=== PATIENT | male | born 1940 | race Caucasian/White ===

== ENCOUNTER → 2017-04-24 | Outpatient (CLI) | payer OTHER ==
[~2017-04-24] MED LIST: ASPI-589 PO; CLX20 PO; COEN30CA8 PO; MISCCAP80 PO; MULT-506 PO; PANT1TAB48 PO; SIMV40TA2 PO
--- NOTE | 2017-04-24 07:57 | DIAGNOSTIC IMAGING REPORT ---
CERVICAL WITHOUT CONTRAST CLINICAL HISTORY: 77 years-old Male presenting with HAND NUMBNESS/TINGLING, neck pain into the bilateral arms with bilateral hand numbness, no reported trauma or injury, symptomatic for years. TECHNIQUE: Multisequence, multiplanar MR imaging of the cervical spine was performed without the use of intravenous contrast. IV contrast: None. COMPARISON: None. FINDINGS: Reversal of normal cervical lordosis in the upper cervical spine centered at C3-4. Mild vertebral body height loss of C4 and C5. Extensive T1 hypointense, T2 hypointense endplate changes in the mid cervical spine (Modic type III). Intervertebral disc height loss in the mid cervical spine. Prominent pannus noted along the posterior aspect of the dens at the atlantoaxial articulation. This does not result in significant spinal canal narrowing. Multilevel degenerative changes further detailed below: C2-3: Minimal anterolisthesis of C2 on C3. Left facet hypertrophy results in mild left neural foraminal narrowing. No spinal canal narrowing. C3-4: Disc osteophyte complex and left facet hypertrophy results in mild right and moderate left neural foraminal narrowing. Mild effacement of the ventral thecal sac. No significant spinal canal narrowing. C4-5: Disc osteophyte complex and uncovertebral hypertrophy result in severe bilateral neural foraminal narrowing. Mild effacement of the ventral thecal sac. No significant spinal canal narrowing. C5-6: Disc osteophyte complex and uncovertebral hypertrophy result in moderate bilateral neural foraminal narrowing. Mild effacement of the ventral thecal sac. No significant spinal canal narrowing. C6-7: Disc osteophyte complex and uncovertebral hypertrophy result in mild right and minimal left neural foraminal narrowing. There is ligamentum flavum thickening that effaces the dorsal thecal sac at the level of C6. Because this does not align with the disc osteophyte complex, no significant spinal canal narrowing results. C7-T1: Normal. Cervical spinal cord normal in morphology and signal intensity. Craniocervical junction normal. Mild edema noted in the interspinous ligament. Paraspinal soft tissues otherwise normal. IMPRESSION: Multilevel degenerative changes with varying degrees of neural foraminal narrowing most severe at C4-5 further detailed above. No significant spinal canal narrowing. Electronically signed by: Eduardo Shafer M.D. 04/24/2017 7:56 AM Dictated Date/Time: 04/24/2017 7:45 AM
== END | disposition home or self-care (01) ==
LOC: C.MRIBC 06:46
PROVIDERS: ATTEND Nurse Practitioner
DX: R20.2 Paresthesia of skin (principal); R20.0 Anesthesia of skin; M79.601 Pain in right arm; M79.602 Pain in left arm; R29.898 Other symptoms and signs involving the musculoskeletal system; M48.02 Spinal stenosis, cervical region

== ENCOUNTER 2020-03-12 16:16 | Inpatient (IN) ==
--- NOTE | 2020-03-12 18:15 | Emergency Department Note ---
Impression & Plan SOB (shortness of breath), Bilateral pulmonary embolism, Hypertension ED Provider Note NAME: BUCK BATISTA AGE: 79 SEX: M : 1940 ARRIVES VIA: Walk-In INFORMANT: [Patient, family][staff] ED PROVIDER(S): [Chetan Benton MD] CHIEF COMPLAINT: Shortness of breath HISTORY OF PRESENT ILLNESS: The patient is an 79-year-old male presents with dyspnea. He has been short of breath for weeks. The dyspnea is worse with exertion. No fever, no real cough, no chest pain. The patient states he had an x-ray done last week that showed a vague area of white/patchiness. He had a CT scan of his chest today that showed bilateral pulmonary emboli with a pulmonary infarct. He was sent to our ED for evaluation and likely admission. The patient states that he has had 2 negative coronavirus tests. The most recent was just a week or so ago. Patient has not had any known coronavirus exposures. The patient has not had long travel by car or plane or train. He was told that he had a blood clot in the leg a long long time ago. He also had lung cancer 20+ years ago. He is not on any anticoagulants. REVIEW OF SYSTEMS: See HPI for pertinent positives and negatives. A total of ten systems were reviewed and were otherwise negative. PMHx/PSHx: See Below SOCIAL HISTORY: See Below. PHYSICAL EXAM: GENERAL: Patient is in no acute distress. HEENT: No acute trauma, normocephalic atraumatic, mucous membranes moist, no nasal congestion, no scleral icterus. NECK: No stridor, no adenopathy, no meningismus, trachea is midline. LUNGS: Clear to auscultation bilaterally, no wheeze, no rhonchi, breath sounds equal. HEART: Without murmurs gallops or rubs, regular rate and rhythm. ABDOMEN: Soft, nontender, bowel sounds positive, no hernias, no peritonitis. EXTREMITIES: No cyanosis or edema, full range of motion of all the joints without pain or difficulty, no signs for acute trauma. NEUROLOGIC: Oriented x 3, no acute motor or sensory deficits, no focal weakness. SKIN: No rash, no jaundice, no diaphoresis. DIFFERENTIAL DIAGNOSIS: Reactive airway disease, pneumonia, pneumothorax, COPD, CHF, infections, cardiac ischemia, pulmonary embolism, musculoskeletal, gastrointestinal, as well as other pathologies. EMERGENCY DEPARTMENT COURSE/PROCEDURES: ECG: Indication was shortness of breath. The EKG shows a normal sinus rhythm with some sinus arrhythmia. LVH is present. The rate is 68. QTc is 421. There are some inverted T waves in the inferior leads, possibly consistent with the LVH. There was no ST elevation, no PVCs. Compared to an ECG from 31 August 2018, there is no significant change. Continuous Cardiac Monitoring: An order was placed for continuous cardiac monitoring. The monitor shows a rate of 80 with normal sinus rhythm. Critical Care Note: I have personally spent greater than 33 minutes of critical care time in the direct management of this patient. This includes bedside care, interpretation of diagnostic studies, and testing, discussion with consultants, patient, and family members, and other required patient management activities. This 33 minutes is in excess of all separately billable procedures. MEDICAL DECISION MAKING: There is no leukocytosis or concerning anemia. No coagulopathy. No significant electrolyte abnormality or kidney failure. No concerning liver enzyme elevation. EKG shows a normal sinus rhythm, no acute ischemia. Cardiac enzyme testing x1 is not consistent with acute cardiac injury. Chest film shows some presumed chronic findings, no obvious pneumonia, no pneumothorax. On exam, the patient was not toxic, he did not seem short of breath while lying on the stretcher. The patient presents with findings on an outpatient CT of bilateral pulmonary emboli with a pulmonary infarct. I was able to review this CT scan reading. The patient was given IV hydralazine for a somewhat elevated blood pressure. He was given a bolus of IV heparin and placed on a heparin drip. He requires anticoagulation and a hospital stay. I spoke to the patient about his findings, I spoke with the case repairer. The on-call hospitalist has been consulted. The patient is currently resting comfortably. Of note, a hypercoagulable work-up has been ordered, the results are still pending. Past Med/Surg History Medical History Asthma "YEARS AGO" NO INHALER NOW Cancer LUNG AND PROSTATE CANCER Degenerative disc disease GERD (gastroesophageal reflux disease) HTN (hypertension) Migraine (Chronic) HX OF Osteoarthritis Surgical History History of adenoidectomy History of carpal tunnel release RT X 2 LEFT X 3 History of cataract surgery LEFT/RIGHT History of colonoscopy History of esophagogastroduodenoscopy (EGD) History of herniorrhaphy RT INGUINAL History of laminectomy LUMBAR History of lobectomy of lung RT MIDDLE LOBE History of prostatectomy History of tonsillectomy History of tooth extraction Family History Father FHx: prostate cancer Grandfather (Paternal) FHx: prostate cancer Social History Preferred Language: Persian Communication Ability: Effective 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 Beliefs That Will Affect Care: None Current Living Situation: Spouse Feels Safe at Home: Yes Smoking Status: Former smoker Tobacco Type: cigars ; Second Hand Exposure: No ; Hx Alcohol Use: No Hx Substance Use: No Allergies Allergies Allergy/AdvReac Type Severity Reaction Status Date / Time No Known Allergies Allergy Verified 03/12/20 19:18 Home Meds Home Medications Medication Instructions Recorded Confirmed citalopram 20 mg PO QAM 08/31/18 03/12/20 pantoprazole 40 mg PO QAM 08/31/18 03/12/20 acetaminophen [Tylenol Extra 500 mg PO Q6H PRN 03/09/20 03/12/20 Strength] aspirin [Aspir-81] 81 mg PO HS 03/09/20 03/12/20 carvedilol 6.25 mg PO QAM 03/09/20 03/12/20 cholecalciferol (vitamin D3) 125 mcg PO HS 03/09/20 03/12/20 [Vitamin D3] famotidine 20 mg PO HS 03/09/20 03/12/20 gabapentin 100 mg PO BID 03/09/20 03/12/20 multivitamin 1 tab PO HS 03/09/20 03/12/20 oxybutynin chloride 10 mg PO QAM 03/09/20 03/12/20 oxycodone-acetaminophen 1 tab PO Q6H PRN 03/09/20 03/12/20 meclizine 12.5 mg PO TID PRN 03/12/20 03/12/20 Results & Data (ED) Vital Signs Vital Signs - 24 hr 03/12/20 17:05 03/12/20 18:25 03/12/20 19:24 Temperature 36.7 C Temperature Source Oral Pulse Rate 80 71 Pulse Rate from SpO2 Sensor 71 Pulse Rhythm Regular Respiratory Rate 18 18 Respiratory Effort / Characteristics Non-Labored Spontaneous Respiratory Depth Normal Respiratory Pattern Regular Blood Pressure 186/100 H 182/96 H Blood Pressure Mean 128 127 Pulse Oximetry 96 94 96 Oxygen Delivery Method Room Air Room Air Sepsis Recent Fever Within 48 Hours No Sepsis New/Unexplained Change in Mental Status No Sepsis Action Taken by Nursing No Action Required 03/12/20 19:32 03/12/20 19:33 03/12/20 19:40 Temperature Temperature Source Pulse Rate 69 70 72 Pulse Rate from SpO2 Sensor 69 69 Pulse Rhythm Respiratory Rate 20 17 19 Respiratory Effort / Characteristics Respiratory Depth Respiratory Pattern Blood Pressure 175/107 H Blood Pressure Mean 140 Pulse Oximetry 96 97 Oxygen Delivery Method Sepsis Recent Fever Within 48 Hours Sepsis New/Unexplained Change in Mental Status Sepsis Action Taken by Nursing 03/12/20 19:50 03/12/20 20:00 03/12/20 20:10 Temperature Temperature Source Pulse Rate 69 74 75 Pulse Rate from SpO2 Sensor 69 74 74 Pulse Rhythm Respiratory Rate 19 21 18 Respiratory Effort / Characteristics Respiratory Depth Respiratory Pattern Blood Pressure Blood Pressure Mean Pulse Oximetry 97 97 97 Oxygen Delivery Method Sepsis Recent Fever Within 48 Hours Sepsis New/Unexplained Change in Mental Status Sepsis Action Taken by [facility] Medications Current Medication List: was personally reviewed by me Laboratory Data Attestation: I reviewed the patient's lab results. Result diagrams: 03/12/20 19:33 03/12/20 19:33 Lab Results 03/12/20 03/12/20 03/12/20 Range/Units 19:33 19:33 19:33 WBC 6.98 (4.8-10.8) K/uL RBC 4.95 (4.7-6.1) M/uL Hgb 14.3 (14.0-18.0) g/dL Hct 44.3 (42-52) % MCV 89.5 (80-100) fL MCH 28.9 (25-34) pg MCHC 32.3 (32-36) g/dL RDW Std Deviation 45.7 (36.4-46.3) fL RDW Coeff of Marely 14.0 (11.5-14.5) % Plt Count 221 (130-400) K/uL MPV 9.1 (7.4-10.4) fL Immature Gran % (Auto) 0.6 % Neut % (Auto) 58.4 % Lymph % (Auto) 28.7 % [place] % (Auto) 10.3 % Eos % (Auto) 1.9 % Baso % (Auto) 0.1 % Immature Gran # (Auto) 0.04 H (0.00-0.02) K/uL Neut # (Auto) 4.08 (1.4-6.5) K/uL Lymph # (Auto) 2.00 (1.2-3.4) K/uL [place] # (Auto) 0.72 H (0.11-0.59) K/uL Eos # (Auto) 0.13 (0-0.5) K/uL Baso # (Auto) 0.01 (0-0.2) K/uL PT 11.8 (9.0-12.0) Seconds INR 1.1 (0.9-1.1) APTT 29.6 (21.0-31.0) Seconds PTT Ratio 1.1 Sodium 137 (136-145) mmol/L Potassium 4.4 (3.5-5.1) mmol/L Chloride 101 (98-107) mmol/L Carbon Dioxide 29 (21-32) mmol/L Anion Gap 6.0 (3-11) BUN 25 H (7-18) mg/dl Creatinine 1.39 (0.6-1.4) mg/dl Est Cr Clr Drug Dosing 36.5 ml/min Est GFR ( Amer) 54.7 Est GFR (Non-Af Amer) 47.2 BUN/Creatinine Ratio 17.9 (10-20) Glucose 84 (70-99) mg/dl Calcium 9.4 (8.5-10.1) mg/dl Total Bilirubin 0.4 (0.2-1) mg/dl AST 12 L (15-37) U/L ALT 22 (12-78) U/L Alkaline Phosphatase 86 (45-117) U/L Troponin I < 0.015 (0-0.045) ng/ml Total Protein 7.2 (6.4-8.2) gm/dl Albumin 3.4 (3.4-5.0) gm/dl Globulin 3.8 (2.5-4.0) gm/dl Albumin/Globulin Ratio 0.9 (0.9-2) Administered Medications Heparin Sodium/Dextrose (Heparin Sodium/Dextrose) 25,000 units in 500 mls @ 0.02 mls/hr IV .Q24H ROSA M; Protocol Stop: 04/11/20 18:29 Last Admin: 03/12/20 20:19 Dose: 1,100 units/hr, 22 mls/hr Documented by: [id number] Cosigned by: [id number] Discontinued Medications Heparin Sodium/Dextrose () 1 ea N/A ONE ONE; Protocol Stop: 03/12/20 18:28 Last Admin: 03/12/20 20:20 Dose: 1 ea Documented by: [id number] Hydralazine HCl (Hydralazine Hcl) 10 mg IV NOW STA Stop: 03/12/20 20:37 Last Admin: 03/12/20 20:44 Dose: 10 mg Documented by: [id number] Imaging Data Radiologist's Impression: CT ANGIOGRAM OF THE CHEST CLINICAL HISTORY: Atypical chest pain. Dyspnea. Remote history of lung cancer. COMPARISON STUDY: Chest CT dated 09/22/2016. Chest x-ray dated 08/31/2018. TECHNIQUE: Following the IV administration of 119 cc of Optiray 320, CT angiogram of the chest was performed from the upper abdomen to the thoracic inlet utilizing the pulmonary embolus protocol. Images are reviewed in the axial, sagittal, and coronal planes. 3-D MIPS images are created and assessed. IV contrast was administered without complication. A dose lowering technique was utilized adhering to the principles of ALARA. The examination is degraded by motion artifact, and by streak artifact from the left arm which could not elevated above the chest. CT DOSE: 374.05 mGy.cm FINDINGS: Thyroid: Imaged portions of the thyroid gland are normal in size and attenuation. Thoracic aorta: There is atherosclerotic calcification of the thoracic aorta, which is normal in caliber and demonstrates standard 3-vessel arch anatomy. No dissection is seen. Pulmonary vasculature: The pulmonary trunk is normal in caliber. There is thrombus within the right upper low, right lower lobe, left lower lobe, and lingular pulmonary arteries. This extends in the segmental and subsegmental branches. Segmental and subsegmental pulmonary emboli are also seen within the left upper lobe. Heart: The heart is enlarged and without pericardial effusion. There are coronary artery calcifications. Lungs and pleural spaces: Emphysematous change is noted. There is postoperative change and volume loss consistent with right middle lobe resection. The trachea and central airways are clear. No airspace consolidation is seen typical for pneumonia and there is no pleural effusion. A focus of subpleural wedge-shaped consolidation at the right lung base seen on image #47 is consistent with a small pulmonary infarct. There is dependent atelectasis. A 4 mm nodule in the left lower lobe is again seen on image #62. No new pulmonary nodule is identified. Mediastinum: There is no mediastinal lymphadenopathy. [place]: Clear. Axillae: There is no axillary lymphadenopathy. Upper abdomen: There is a moderate hiatal hernia. Partially visualized upper abdominal viscera is otherwise grossly unremarkable. Skeletal structures: The skeletal structures are osteopenic. Degenerative change and mild hyperkyphosis are noted in the thoracic spine. A hemangioma is noted in the body of T6. No lytic or blastic bony lesions are seen. IMPRESSION: 1. Bilateral pulmonary emboli as above. 2. Cardiomegaly, emphysema, and postoperative change from right-sided pulmonary resection. 3. A small pulmonary infarct is noted at the right lung base. 4. No airspace consolidation is seen typical for pneumonia and there is no pleural effusion. 5. Moderate hiatal hernia. 6. Additional findings as above. SINGLE VIEW CHEST CLINICAL HISTORY: Dyspnea. Known pulmonary embolus. FINDINGS: An AP, portable, upright chest radiograph is compared to study dated 08/31/2018 and correlated with chest CT dated 03/12/2020. The examination is degraded by portable technique and patient rotation. The heart is enlarged noting atherosclerotic calcification of the thoracic aorta. The pulmonary vasculature is noncongested. Emphysematous change and chronic interstitial thickening are similar to previous. There is postoperative change and volume loss in the right lung consistent with a history of surgical resection. Question trace right pleural effusion. Atelectasis is seen at the lung bases. No pneumothorax is seen. The skeletal structures are osteopenic. The bony thorax is grossly intact. IMPRESSION: 1. Cardiomegaly, emphysema, and postoperative changes as above. 2. Question trace right pleural effusion. Blood Pressure Blood Pressure Findings: Elevated blood pressure Blood Pressure Disposition: further management by hospitalist Discharge Plan Visit Data Chief Complaint: Referred by Doctor Stated Complaint: REF BY DOC ED Provider: Chetan Benton Discharge Problem: SOB (shortness of breath), Bilateral pulmonary embolism, Hypertension Patient Disposition: Being Evaluated by Hospitalist Condition: Good Forms Stand Alone Forms: [facility] Prescriptions Prescriptions: No Action carvedilol 6.25 mg Tablet 6.25 mg PO QAM RF: 0 oxybutynin chloride 10 mg Tablet Extended Release 24hr 10 mg PO QAM RF: 0 famotidine 20 mg Tablet 20 mg PO HS RF: 0 gabapentin 100 mg Capsule 100 mg PO BID RF: 0 multivitamin Tablet 1 tab PO HS RF: 0 aspirin [Aspir-81] 81 mg Tablet,Delayed Release (Dr/Ec) 81 mg PO HS RF: 0 cholecalciferol (vitamin D3) [Vitamin D3] 125 mcg (5,000 unit) Tablet 125 mcg PO HS RF: 0 acetaminophen [Tylenol Extra Strength] 500 mg Tablet 500 mg PO Q6H PRN (Reason: Pain) RF: 0 oxycodone-acetaminophen 10-325 mg Tablet 1 tab PO Q6H PRN (Reason: Pain) RF: 0 meclizine 12.5 mg tablet 12.5 mg PO TID PRN (Reason: DIZZY) RF: 0 citalopram 20 mg tablet 20 mg PO QAM RF: 0 pantoprazole 40 mg tablet,delayed release (DR/EC) 40 mg PO QAM RF: 0 Referrals Referrals: Ranulfo Schumacher DO [Primary Care Provider] - Discharge Problem: Hypertension Qualifiers: Hypertension type: unspecified Qualified Code(s): I10 - Essential (primary) hypertension
[2020-03-12] MEDS ORDERED: Heparin IV Standard *NO* Bolus ONE (18:27)
[2020-03-12] MEDS ORDERED: HEPARIN SODIUM/DEXTROSE 25,000 UNITS/500 ML BAG IV SCH (18:30)
--- NOTE | 2020-03-12 19:39 | XRay Report ---
SINGLE VIEW CHEST CLINICAL HISTORY: Dyspnea. Known pulmonary embolus. FINDINGS: An AP, portable, upright chest radiograph is compared to study dated 08/31/2018 and correlat ed with chest CT dated 03/12/2020. The examination is degraded by portable technique and patient rotat ion. The heart is enlarged noting atherosclerotic calcification of the thoracic aorta. The pulmonary vasculature is noncongested. Emphysematous change and chronic interstitial thickening are similar to previous. There is postoperative change and volume loss in the right lung consistent with a history o f surgical resection. Question trace right pleural effusion. Atelectasis is seen at the lung bases. N o pneumothorax is seen. The skeletal structures are osteopenic. The bony thorax is grossly intact. IMPRESSION: 1. Cardiomegaly, emphysema, and postoperative changes as above. 2. Question trace right pleural effusion. ACT 112: Negative or not required by law. Electronically signed by: Chetan Ramírez M.D. 03/12/2020 7:38 PM
[2020-03-12 19:59] LABS: Basophils # (auto) 0.01 K/uL (0-0.2); Basophils % (auto) 0.1 %; Eosinophils # (auto) 0.13 K/uL (0-0.5); Eosinophils % (auto) 1.9 %; Hematocrit (blood only) 44.3 % (42-52); Hemoglobin 14.3 g/dL (14.0-18.0); Immature Granulocytes # (auto) 0.04 K/uL (0.00-0.02); Immature Granulocytes % (auto) 0.6 %; Lymphocytes % (auto) 28.7 %; Mean Corpuscular Hemoglobin 28.9 pg (25-34); Mean Corpuscular Hgb Conc 32.3 g/dL (32-36); Mean Corpuscular Volume 89.5 fL (80-100); Mean Platelet Volume 9.1 fL (7.4-10.4); Monocytes # (auto) 0.72 K/uL (0.11-0.59); Monocytes % (auto) 10.3 %; Neutrophils # (auto) 4.08 K/uL (1.4-6.5); Neutrophils % (auto) 58.4 %; Platelet Count 221 K/uL (130-400); RDW Standard Deviation 45.7 fL (36.4-46.3); Red Blood Count 4.95 M/uL (4.7-6.1); White Blood Count 6.98 K/uL (4.8-10.8)
[2020-03-12 20:10] LABS: INR 1.1 (0.9-1.1); Partial Thromboplastin Ratio 1.1; Partial Thromboplastin Time 29.6 Seconds (21.0-31.0); Prothrombin Time 11.8 Seconds (9.0-12.0)
[2020-03-12 20:20] LABS: Alanine Aminotransferase 22 U/L (12-78); Albumin Level 3.4 gm/dl (3.4-5.0); Aspartate Aminotransferase 12 U/L (15-37); BUN Creatinine Ratio 17.9 (10-20); Blood Urea Nitrogen 25 mg/dl (7-18); Calcium 9.4 mg/dl (8.5-10.1); Carbon Dioxide 29 mmol/L (21-32); Chloride 101 mmol/L (98-107); Creatinine Clr Calc Pharmacy 36.5 ml/min; Est GFR (African American) 54.7; Est GFR (Non-African American) 47.2; Glucose 84 mg/dl (70-99); Potassium 4.4 mmol/L (3.5-5.1); Sodium 137 mmol/L (136-145)
[2020-03-12 20:25] LABS: Albumin Globulin Ratio 0.9 (0.9-2); Alkaline Phosphatase 86 U/L (45-117); Bilirubin,Total 0.4 mg/dl (0.2-1); Globulin 3.8 gm/dl (2.5-4.0); Total Protein 7.2 gm/dl (6.4-8.2); Troponin I < 0.015 ng/ml (0-0.045)
[2020-03-12] MEDS ORDERED: HydrALAZINE HCL 20 MG/ML VIAL IV STA (20:36)
[2020-03-12] MEDS ORDERED: SODIUM CHLORIDE 0.65% NA SOLN 45 ML (OCEAN) ONE (22:21)
[2020-03-12] MEDS ORDERED: SODIUM CHLORIDE 0.65% NA SOLN 45 ML (OCEAN) PRN (22:21)
[2020-03-12] MEDS ORDERED: MECLIZINE 12.5 MG TAB PO PRN (22:21)
[2020-03-12] MEDS ORDERED: SODIUM CHLORIDE 0.9% 1000ML 1,000 ML IV SCH (22:21)
[2020-03-12] MEDS ORDERED: ONDANSETRON INJ 2 MG/ML 2 ML VIAL IV PRN (22:21)
[2020-03-12] MEDS ORDERED: LEVALBUTEROL 1.25MG/0.5ML NEB NEB PRN (22:21)
[2020-03-12] MEDS ORDERED: WARFARIN SOD 5 MG TAB PO ONE (22:21)
[2020-03-12] MEDS ORDERED: OXYCODONE/ACETAMINOPHEN 10-325 TAB PO PRN (22:21)
[2020-03-12] MEDS ORDERED: LEVALBUTEROL 1.25MG/0.5ML NEB NEB STA (22:21)
[2020-03-12] MEDS ORDERED: NITROGLYCERIN SL 0.4 MG/TAB TAB SL PRN (22:21)
[2020-03-12] MEDS ORDERED: POLYETHYLENE (MIRALAX) 17 GM PACK PO PRN (22:21)
--- NOTE | 2020-03-12 22:53 | History and Physical Report ---
DATE OF ADMISSION: 03/12/2020 CHIEF COMPLAINT: Shortness of breath and CAT scan showed bilateral PE. HISTORY OF PRESENT ILLNESS: This is an 79-year-old male with past medical history significant for hyperlipidemia, hypertension, GERD, chronic kidney disease stage III, carpal tunnel syndrome, degenerative disc disease, migraine, generalized anxiety disorder, history of lung cancer about 20 years ago, status post right middle lobe lobectomy in 1997, history of DVT 30 years ago when he had back surgery. 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 He was tested for COVID two times as there was a question of loss of sense of taste for 2 months on and off, the last one was about two weeks ago and was negative.Chest x-ray showed some nipple shadow and then later a CT chest was done which showed some lesions and today CTA chest done in the ER showed b/l PE.. Currently, resting comfortable and hemodynamically stable. Currently, he gets short of breath in exertion. Denies any chest pain, no nausea, no vomiting, no abdominal pain. Normal bowel and bladder movements, no hematuria, no blood in the stools. No swelling in the legs. No headache, no blurred vision, no earache, no runny nose, no sore throat. Has cough on and off. ALLERGIES: No known drug allergies. PAST MEDICAL HISTORY: As mentioned above. PAST SURGICAL HISTORY: Carpal tunnel surgery bilaterally, colonoscopy, EGDs, injection of the lumbar spine, laminectomy, radical prostatectomy removal in 2003, appendectomy, repair of inguinal hernia, single lobectomy of the right middle lobe in 1997. MEDICATIONS: Currently the patient is on citalopram 20 mg p.o. daily, famotidine 20 mg p.o. daily, oxycodone/acetaminophen 10/325 mg 1 tablet every 6 hours p.r.n., oxybutynin XL 10 mg p.o. daily, Coreg 6.25 mg p.o. daily, gabapentin 300 mg p.o. b.i.d., Protonix 40 mg p.o. daily, meclizine 2.5 mg p.o. t.i.d. p.r.n., vitamin D 1000 units p.o. daily, aspirin 81 mg p.o. daily, multivitamin tablets with minerals 1 tablet daily. FAMILY HISTORY: Significant for father had prostate cancer. Mother had heart disorder. SOCIAL HISTORY: and lives with his . Smokes cigars. No alcohol use, no drug use. REVIEW OF SYMPTOMS: As per HPI. Rest of review of symptoms negative. PHYSICAL EXAMINATION: GENERAL: The patient is of moderate build, not in acute distress. VITAL SIGNS: Temperature 36.7, pulse 75, respiratory rate 18, blood pressure 175/107, oxygen 97% on room air. HEENT: No pallor, no icterus. Extraocular muscles intact. Oral mucosa somewhat dry. NECK: Supple, no neck masses seen. CARDIOVASCULAR: S1, S2 heard, regular rate and rhythm, no murmur, no gallop. RESPIRATORY SYSTEM: Normal AP diameter. No accessory muscle use. No wheezing, no crackles. ABDOMEN: Soft, bowel sounds present, nontender. No distention. CENTRAL NERVOUS SYSTEM: Cranial nerves II-XII grossly intact. Nonfocal. EXTREMITIES: No edema, no erythema, no calf tenderness. LABORATORY DATA: WBC 6.9, hemoglobin 14.3, hematocrit 44.3, platelets 221. PT 11.8, INR 1.1, APTT 29.6, chemistries are pending. Chest x-ray, cardiomegaly, emphysema, questionable trace right pleural effusion. CT chest done as outpatient, it was done without contrast on 03/08/2020, it showed wedge shaped opacity within the posterior aspect of the right lower lobe developing pneumonia versus infarct. If clinically indicated, further evaluation with PE protocol CT chest recommended. CTA chest done today shows b/l PE. ASSESSMENT AND PLAN: 1. This is an 79-year-old male who presents with shortness of breath ongoing for [address] as outpatient done shows probable PE. CTA done in ER shows b/l PE. Will also do lower extremity Doppler and echo. The patient has deep venous thrombosis 30 years ago when he had back surgery. Will be placed on IV heparin. . Monitor on med/surg, tele. Hypercoagulable workup ordered in the ER which we will follow up. 2. History of prostate cancer status post prostatectomy. 3. History of lung cancer in 1997, status post right middle lobe lobectomy. 4. History of depression: Continue citalopram. 5. Gastroesophageal reflux disease: Continue famotidine. 6. Hypertension: On Coreg. Monitor blood pressure. 7. Hyperlipidemia: Currently not on any medications. 8. Deep venous thrombosis prophylaxis: IV heparin. 9. Disposition. Closely monitor in med/surg tele. Level 1 full code. Expect to discharge home and follow with family doctor. The patient to decide about Coumadin versus newer novel anticoagulant agents. MTDD
[2020-03-12] MEDS: Heparin IV Standard *NO* Bolus IV SCH ×2 (23:35→23:41)
[2020-03-12] MEDS: CHOLECALCIFEROL 1,000 UNITS 25 MCG TAB PO SCH (23:36)
[2020-03-12] MEDS: ASPIRIN 81 MG ECTAB PO SCH (23:37)
[2020-03-12] MEDS: MULTIVITAMIN TAB PO SCH (23:37)
[2020-03-12] MEDS: GABAPENTIN 100 MG CAP PO SCH (23:37)
[2020-03-12] MEDS: FAMOTIDINE 20 MG TAB PO SCH (23:39)
[2020-03-13] MEDS: Heparin IV Standard *NO* Bolus IV SCH ×2 (00:52→00:54)
[2020-03-13 02:08] LABS: INR 1.1 (0.9-1.1); Partial Thromboplastin Ratio 2.7
[2020-03-13 02:24] LABS: Partial Thromboplastin Time 75.2 Seconds (21.0-31.0)
[2020-03-13] MEDS: ACETAMINOPHEN 325 MG TAB PO PRN ×2 (07:28→21:39)
[2020-03-13] MEDS: OXYBUTYNIN CHLORIDE XL 5 MG TABCR PO SCH (07:29)
[2020-03-13] MEDS: carvediloL 6.25 MG TAB PO SCH (07:29)
[2020-03-13] MEDS: CITALOPRAM 20 MG TAB PO SCH (07:29)
[2020-03-13] MEDS: GABAPENTIN 100 MG CAP PO SCH ×2 (07:29→21:29)
[2020-03-13] MEDS: PANTOprazole 40 MG TAB PO SCH (07:30)
--- NOTE | 2020-03-13 08:37 | Ultrasound Report ---
ULTRASOUND BILATERAL LOWER EXTREMITY VENOUS CLINICAL HISTORY: Pulmonary embolus. COMPARISON STUDY: No priors. TECHNIQUE: Real-time, grayscale, and color Doppler sonography of the deep veins of the right and left lower extremity was performed from the inguinal crease to the calf. Compression and augmentation wer e utilized. FINDINGS: There is no sonographic evidence of deep venous thrombosis identified in the right or left lower extremity. The common femoral, superficial femoral, and popliteal veins are patent and normally compressible bilaterally. The greater saphenous vein and the profunda femoris vein at the junction w ith the common femoral vein are clear in both legs. The visualized calf veins are patent bilaterally. IMPRESSION: There is no sonographic evidence of deep venous thrombosis identified in the right or lef t lower extremity. ACT 112: Negative or not required by law. Electronically signed by: Chetan Ramírez M.D. 03/13/2020 8:36 AM
[2020-03-13 09:43] LABS: Basophils # (auto) 0.01 K/uL (0-0.2); Basophils % (auto) 0.2 %; Eosinophils # (auto) 0.11 K/uL (0-0.5); Eosinophils % (auto) 2.1 %; Hematocrit (blood only) 41.6 % (42-52); Hemoglobin 13.9 g/dL (14.0-18.0); Immature Granulocytes # (auto) 0.03 K/uL (0.00-0.02); Immature Granulocytes % (auto) 0.6 %; Lymphocytes # (auto) 1.52 K/uL (1.2-3.4); Lymphocytes % (auto) 29.1 %; Mean Corpuscular Hemoglobin 29.3 pg (25-34); Mean Corpuscular Hgb Conc 33.4 g/dL (32-36); Mean Corpuscular Volume 87.8 fL (80-100); Monocytes # (auto) 0.41 K/uL (0.11-0.59); Monocytes % (auto) 7.8 %; Neutrophils # (auto) 3.15 K/uL (1.4-6.5); Neutrophils % (auto) 60.2 %; Platelet Count 172 K/uL (130-400); RDW Coefficient of Variation 14.1 % (11.5-14.5); RDW Standard Deviation 45.1 fL (36.4-46.3); Red Blood Count 4.74 M/uL (4.7-6.1); White Blood Count 5.23 K/uL (4.8-10.8)
[2020-03-13 10:02] LABS: BUN Creatinine Ratio 15.1 (10-20); Blood Urea Nitrogen 20 mg/dl (7-18); Calcium 8.8 mg/dl (8.5-10.1); Carbon Dioxide 25 mmol/L (21-32); Chloride 103 mmol/L (98-107); Creatinine Clr Calc Pharmacy 34.5 ml/min; Est GFR (African American) 56.7; Est GFR (Non-African American) 48.9; Glucose 139 mg/dl (70-99); Potassium 4.1 mmol/L (3.5-5.1); Sodium 136 mmol/L (136-145)
[2020-03-13 10:03] LABS: Partial Thromboplastin Ratio 4.4
[2020-03-13 10:07] LABS: Troponin I < 0.015 ng/ml (0-0.045)
[2020-03-13 10:09] LABS: Partial Thromboplastin Time 122.1 Seconds (21.0-31.0)
--- NOTE | 2020-03-13 17:07 | Hospitalist Progress Note ---
Date of Service March 13, 2020 Assessment & Plan (1) Bilateral pulmonary embolism: CTA of chest : bilateral PE pt does not have any active risk factors for thromboemboli: active at baseline , no complain of lower ext swelling or edema no recent travel long distance no prior hx of PE or DVT hx of lung ca > 20 yrs back , s/p resection lower ext doppler negative for DVT ECHO shows no evidence of rt heart strain IV heparin d/tea changed to Lovenox SC bridge with coumadin given unprovocked PE will need 6-9 months of anticoagulation hypercoag work up sent , results will be followed by Pt's family physican Dr Schumacher will need to be established with coumadin clinic at [facility] for coumadin dose and INR monitoring COVID 19 test ordered ,as increased association noted with SARS-nCOVs 2019 infection with thrombotic events HX OF ROTATOR CUFF INJURY : scheduled to have left shoulder surgery in March given recent bilat PE , elective orthopedics surgery may needs to be post ponded to allow theraputic anticoagulation uninterrupted for 3-4 weeks will need c-ordination with coumadin clinic for lovenox bridge before and after orthopedics surgery CODE STATUS : full code DVT PROPHYLAXIS ; lovenox sc /coumadin DISPOSITION ; expected to be dischaged home when medically stable Admission and Anticipated Discharge Date Admission Date: March 12, 2020 Subjective no complain of chest pain or SOB walking on [address] independetly no fever or chills or cough Review of Systems Review of Systems: All systems reviewed & are unremarkable except as noted in HPI & below Respiratory: no cough, no dyspnea, no dyspnea on exertion, no pain with cough and no wheezing Cardiovascular: no chest pain, no chest pain with activity, no dyspnea at rest, no dyspnea on exertion, no orthopnea, no palpitations, no lightheadedness, no syncope, no edema and no calf pain Physical Exam Constitutional: WD/WN, vitals as above no acute distress Eyes: PERRL, conjunctivae normal, anicteric sclerae ENMT: external ear and nose normal, oropharynx normal Neck: trachea midline, no thyromegaly Respiratory: normal respiratory effort, lungs clear to auscultation Cardiovascular: RRR, no murmur, no edema Gastrointestinal (Abdomen): normal bowel sounds, soft, nontender, no hepatosplenomegaly Musculoskeletal: no cyanosis or clubbing, extremities motor strength 5/5 Skin: no rashes, warm and dry Neurologic: PERRL, EOMI, accommodation nl, no face palsy, no dysarthria Psychiatric: A+Ox3, euthymic affect Results & Data Results & Data ([facility]) Vital Signs (Past 12 Hours) Vital Signs Temp Pulse Pulse Resp BP Pulse Ox 03/13/20 15:43 36.5 C 68 20 163/82 H 95 03/13/20 11:21 36.5 C 67 20 159/78 H 95 03/13/20 08:00 79 03/13/20 07:02 36.6 C 76 19 165/94 H 96
[2020-03-13] MEDS ORDERED: WARFARIN SOD 5 MG TAB PO ONE (17:09)
[2020-03-13] MEDS ORDERED: ENOXAPARIN 1 MG/KG SQ SCH (17:15)
--- NOTE | 2020-03-13 20:01 | Hospitalist Progress Note ---
Date of Service March 13, 2020 Assessment & Plan Admission and Anticipated Discharge Date Admission Date: March 12, 2020 Subjective ATTENDING ADDENDUM: pt admitted with un provocked bilateral PE no lower ext DVT family concerned about blood clot /thromboembolic events associated with COVID 19 pt does not have any recent known contact with COVID 19 positive pt does go occasionally to [employer] for groceries , has been using mask when out side house no report of fever /cough ordered for COVID 19 testing pt is updated regarding need to on airborne and contact isolation till result is available Janell Boswell Results & Data Results & Data ([facility]) Vital Signs (Past 12 Hours) Vital Signs Temp Pulse Pulse Resp BP Pulse Ox 03/13/20 15:43 36.5 C 68 20 163/82 H 95 03/13/20 11:21 36.5 C 67 20 159/78 H 95 03/13/20 08:00 79
[2020-03-13] MEDS ORDERED: ACETAMINOPHEN 500 MG TAB PO PRN (20:38)
[2020-03-13] MEDS ORDERED: ENOXAPARIN 80 MG/0.8 ML SYR SQ SCH (21:00)
[2020-03-13] MEDS: ENOXAPARIN 80 MG/0.8 ML SYR SQ SCH (21:27)
[2020-03-13] MEDS: ASPIRIN 81 MG ECTAB PO SCH (21:28)
[2020-03-13] MEDS: CHOLECALCIFEROL 1,000 UNITS 25 MCG TAB PO SCH (21:28)
[2020-03-13] MEDS: FAMOTIDINE 20 MG TAB PO SCH (21:29)
[2020-03-13] MEDS: MULTIVITAMIN TAB PO SCH (21:29)
[2020-03-14] MEDS: ENOXAPARIN 80 MG/0.8 ML SYR SQ SCH ×2 (06:06→17:03)
[2020-03-14] MEDS: OXYBUTYNIN CHLORIDE XL 5 MG TABCR PO SCH (08:19)
[2020-03-14] MEDS: carvediloL 6.25 MG TAB PO SCH (08:19)
[2020-03-14] MEDS: GABAPENTIN 100 MG CAP PO SCH ×2 (08:19→20:09)
[2020-03-14] MEDS: CITALOPRAM 20 MG TAB PO SCH (08:19)
[2020-03-14] MEDS: PANTOprazole 40 MG TAB PO SCH (08:19)
[2020-03-14 08:28] LABS: INR 1.2 (0.9-1.1); Prothrombin Time 12.6 Seconds (9.0-12.0)
[2020-03-14] MEDS: AMLODIPINE BESYLATE 5 MG TAB PO SCH (10:17)
--- NOTE | 2020-03-14 15:16 | Electrocardiogram Report ---
Test Reason : Blood Pressure : / mmHG Vent. Rate : 075 BPM Atrial Rate : 075 BPM P-R Int : 160 ms QRS Dur : 078 ms QT Int : 380 ms P-R-T Axes : 067 -19 -12 degrees QTc Int : 424 ms Normal sinus rhythm Moderate voltage criteria for LVH, may be normal variant Poor R wave progression, consider anterior GA vs. lead placement vs. LVH Borderline ECG When compared with ECG of 31-AUG-2018 14:39, Premature atrial complexes are no longer Present Confirmed by Pierre Martell ([id number]) on 03/14/2020 3:15:26 PM Referred By: Ranulfo Schumacher Confirmed By:Lucien Martell
[2020-03-14] MEDS: WARFARIN SOD 5 MG TAB PO SCH (17:03)
--- NOTE | 2020-03-14 19:17 | Hospitalist Progress Note ---
Date of Service March 14, 2020 Assessment & Plan (1) Bilateral pulmonary embolism: CTA of chest : bilateral PE No risk factors for thromboemboli Very active at baseline and no recent travel long distance Hx of lung ca > 20 yrs back , s/p resection Doppler of lower extremities negative for DVT ECHO showed no evidence of right heart strain IV heparin d/tea changed to Lovenox SC bridge with coumadin Given unprovoked PE will need 6-9 months of anticoagulation Hypercoagulable panel pending Will need to follow up with the coumadin clinic at [facility] fto monitor INR COVID 19 test ordered ,as increased association noted with SARS-nCOVs 2019 infection with thrombotic events -pending HX OF ROTATOR CUFF INJURY : scheduled to have left shoulder surgery in March given recent bilat PE , elective orthopedics surgery may needs to be postponed due to recent clot and anticoagulant will need coordination with coumadin clinic for lovenox bridge before and after orthopedics surgery CODE STATUS : full code DVT PROPHYLAXIS ; lovenox sc /coumadin DISPOSITION ; Waiting for COVID 19 result before discharge Admission and Anticipated Discharge Date Admission Date: March 12, 2020 Subjective Pt was seen and examined Lying in bed with no distress Pt said that he feels fine He is waiting for his COVID 19 result before he can discharge He denies any chest pain, palpitation, dizziness and SOB Physical Exam Physical Exam: General- No acute distress Head- atraumatic Eyes- PERRL, EOMI, ENT- oropharynx clear Neck- supple, no JVD Lungs- clear to auscultation Heart- regular rhythm; no murmur Abdomen- normal bowel sounds, soft, nontender Extremities- no calf tenderness Neuro- alert, oriented x 3; PERRL, EOMI; no facial palsy; no dysarthria Skin- warm & dry Results & Data Results & Data ([facility]) Vital Signs (Past 12 Hours) Vital Signs Temp Pulse Resp BP BP Pulse Ox 03/14/20 10:15 149/85 H 03/14/20 08:15 36.7 C 85 18 181/78 H 94
[2020-03-14] MEDS: FAMOTIDINE 20 MG TAB PO SCH (20:10)
[2020-03-14] MEDS: CHOLECALCIFEROL 1,000 UNITS 25 MCG TAB PO SCH (20:11)
[2020-03-14] MEDS: ASPIRIN 81 MG ECTAB PO SCH (20:11)
[2020-03-14] MEDS: MULTIVITAMIN TAB PO SCH (20:11)
[2020-03-14] MEDS: ACETAMINOPHEN 325 MG TAB PO PRN (20:13)
[2020-03-15] MEDS: ENOXAPARIN 80 MG/0.8 ML SYR SQ SCH (05:39)
[2020-03-15 06:58] LABS: Hematocrit (blood only) 39.4 % (42-52); Hemoglobin 13.3 g/dL (14.0-18.0); Mean Corpuscular Hemoglobin 29.5 pg (25-34); Mean Corpuscular Hgb Conc 33.8 g/dL (32-36); Mean Corpuscular Volume 87.4 fL (80-100); Mean Platelet Volume 8.9 fL (7.4-10.4); Platelet Count 193 K/uL (130-400); RDW Standard Deviation 44.6 fL (36.4-46.3); Red Blood Count 4.51 M/uL (4.7-6.1); White Blood Count 5.57 K/uL (4.8-10.8)
[2020-03-15 07:07] LABS: INR 1.3 (0.9-1.1); Prothrombin Time 13.6 Seconds (9.0-12.0)
[2020-03-15] MEDS: PANTOprazole 40 MG TAB PO SCH (08:09)
[2020-03-15] MEDS: AMLODIPINE BESYLATE 5 MG TAB PO SCH (08:09)
[2020-03-15] MEDS: GABAPENTIN 100 MG CAP PO SCH (08:10)
[2020-03-15] MEDS: CITALOPRAM 20 MG TAB PO SCH (08:10)
[2020-03-15] MEDS: OXYBUTYNIN CHLORIDE XL 5 MG TABCR PO SCH (08:10)
[2020-03-15] MEDS: carvediloL 6.25 MG TAB PO SCH (08:10)
--- NOTE | 2020-03-15 16:01 | Hospitalist Progress Note ---
Date of Service March 15, 2020 Assessment & Plan (1) Bilateral pulmonary embolism: CTA of chest : bilateral PE No risk factors for thromboemboli Very active at baseline and no recent travel long distance Hx of lung ca > 20 yrs back , s/p resection Doppler of lower extremities negative for DVT ECHO showed no evidence of right heart strain IV heparin d/tea changed to Lovenox SC bridge with coumadin Given unprovoked PE will need 6-9 months of anticoagulation Hypercoagulable panel pending Will need to follow up with the coumadin clinic at [facility] fto monitor INR COVID 19 test ordered ,as increased association noted with SARS-nCOVs 2019 infection with thrombotic events -pending HX OF ROTATOR CUFF INJURY : scheduled to have left shoulder surgery in March given recent bilat PE , elective orthopedics surgery may needs to be postponed due to recent clot and anticoagulant will need coordination with coumadin clinic for lovenox bridge before and after orthopedics surgery CODE STATUS : full code DVT PROPHYLAXIS ; lovenox sc /coumadin DISPOSITION Discharge home today Follow up with the coumadin clinic Admission and Anticipated Discharge Date Admission Date: March 12, 2020 Subjective Pt was seen and examined Lying in bed with no distress Pt said that he feels fine He said that he is ready to go home Denies any chest pain, palpitation, dizziness and SOB Physical Exam Physical Exam: General- No acute distress Head- atraumatic Eyes- PERRL, EOMI, ENT- oropharynx clear Neck- supple, no JVD Lungs- clear to auscultation Heart- regular rhythm; no murmur Abdomen- normal bowel sounds, soft, nontender Extremities- no calf tenderness Neuro- alert, oriented x 3; PERRL, EOMI; no facial palsy; no dysarthria Skin- warm & dry
[2020-03-15] MEDS: WARFARIN SOD 5 MG TAB PO SCH (16:07)
[2020-03-15 22:45] LABS: B2 Glycoprotein IgG <9 SGU (<=20); B2 Glycoprotein IgM <9 SMU (<=20); Protein S Functional(Activity) 86 % (70-150)
--- NOTE | 2020-03-16 09:22 | Discharge Summary ---
Date of Service March 15, 2020 Admission HPI Per Admitting Provider HISTORY OF PRESENT ILLNESS: This is an 79-year-old male with past medical history significant for hyperlipidemia, hypertension, GERD, chronic kidney disease stage III, carpal tunnel syndrome, degenerative disc disease, migraine, generalized anxiety disorder, history of lung cancer about 20 years ago, status post right middle lobe lobectomy in 1997, history of DVT 30 years ago when he had back surgery. 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 He was tested for COVID two times as there was a question of loss of sense of taste for 2 months on and off, the last one was about two weeks ago and was negative.Chest x-ray showed some nipple shadow and then later a CT chest was done which showed some lesions and today CTA chest done in the ER showed b/l PE.. Currently, resting comfortable and hemodynamically stable. Currently, he gets short of breath in exertion. Denies any chest pain, no nausea, no vomiting, no abdominal pain. Normal bowel and bladder movements, no hematuria, no blood in the stools. No swelling in the legs. No headache, no blurred vision, no earache, no runny nose, no sore throat. Has cough on and off. Admission Exam Per Admitting Provider GENERAL: The patient is of moderate build, not in acute distress. VITAL SIGNS: Temperature 36.7, pulse 75, respiratory rate 18, blood pressure 175/107, oxygen 97% on room air. HEENT: No pallor, no icterus. Extraocular muscles intact. Oral mucosa somewhat dry. NECK: Supple, no neck masses seen. CARDIOVASCULAR: S1, S2 heard, regular rate and rhythm, no murmur, no gallop. RESPIRATORY SYSTEM: Normal AP diameter. No accessory muscle use. No wheezing, no crackles. ABDOMEN: Soft, bowel sounds present, nontender. No distention. CENTRAL NERVOUS SYSTEM: Cranial nerves II-XII grossly intact. Nonfocal. EXTREMITIES: No edema, no erythema, no calf tenderness. Principal Diagnosis Bilateral pulmonary embolism Hypertension HX OF ROTATOR CUFF INJURY Discharge Exam General- No acute distress Head- atraumatic Eyes- PERRL, EOMI, ENT- oropharynx clear Neck- supple, no JVD Lungs- clear to auscultation Heart- regular rhythm; no murmur Abdomen- normal bowel sounds, soft, nontender Extremities- no calf tenderness Neuro- alert, oriented x 3; PERRL, EOMI; no facial palsy; no dysarthria Skin- warm & dry Discharge Data Allergies Allergy/AdvReac Type Severity Reaction Status Date / Time No Known Allergies Allergy Verified 03/12/20 19:18 Consultations 03/12/20 19:20 ED Decision to Admit Stat 03/12/20 22:21 Consult Case Management - Discharge Planning Routine Ordered Studies 03/13/20 08:00 US venous doppler LE BI Routine SINGLE VIEW CHEST CLINICAL HISTORY: Dyspnea. Known pulmonary embolus. FINDINGS: An AP, portable, upright chest radiograph is compared to study dated 08/31/2018 and correlated with chest CT dated 03/12/2020. The examination is degraded by portable technique and patient rotation. The heart is enlarged noting atherosclerotic calcification of the thoracic aorta. The pulmonary vasculature is noncongested. Emphysematous change and chronic interstitial thickening are similar to previous. There is postoperative change and volume loss in the right lung consistent with a history of surgical resection. Question trace right pleural effusion. Atelectasis is seen at the lung bases. No pneumothorax is seen. The skeletal structures are osteopenic. The bony thorax is grossly intact. IMPRESSION: 1. Cardiomegaly, emphysema, and postoperative changes as above. 2. Question trace right pleural effusion. ACT 112: Negative or not required by law. Electronically signed by: Chetan Ramírez M.D. 03/12/2020 7:38 PM Dictated: 03/12/201935 Transcribed: 03/12/201935 ULTRASOUND BILATERAL LOWER EXTREMITY VENOUS CLINICAL HISTORY: Pulmonary embolus. COMPARISON STUDY: No priors. TECHNIQUE: Real-time, grayscale, and color Doppler sonography of the deep veins of the right and left lower extremity was performed from the inguinal crease to the calf. Compression and augmentation were utilized. FINDINGS: There is no sonographic evidence of deep venous thrombosis identified in the right or left lower extremity. The common femoral, superficial femoral, and popliteal veins are patent and normally compressible bilaterally. The greater saphenous vein and the profunda femoris vein at the junction with the common femoral vein are clear in both legs. The visualized calf veins are patent bilaterally. IMPRESSION: There is no sonographic evidence of deep venous thrombosis identified in the right or left lower extremity. ACT 112: Negative or not required by law. Electronically signed by: Chetan Ramírez M.D. 03/13/2020 8:36 AM Dictated: 03/13/20834 Transcribed: 03/13/20834 Hospital Course (1) Bilateral pulmonary embolism: CTA of chest : bilateral PE No risk factors for thromboemboli Very active at baseline and no recent travel long distance Hx of lung ca > 20 yrs back , s/p resection Doppler of lower extremities negative for DVT ECHO showed no evidence of right heart strain IV heparin d/tea changed to Lovenox SC bridge with coumadin Given unprovoked PE will need 6-9 months of anticoagulation Hypercoagulable panel pending Will need to follow up with the coumadin clinic at [facility] fto monitor INR COVID 19 test ordered ,as increased association noted with SARS-nCOVs 2019 infection with thrombotic events -pending HX OF ROTATOR CUFF INJURY : scheduled to have left shoulder surgery in March given recent bilat PE , elective orthopedics surgery may needs to be postponed due to recent clot and anticoagulant will need coordination with coumadin clinic for lovenox bridge before and after orthopedics surgery CODE STATUS : full code DVT PROPHYLAXIS ; lovenox sc /coumadin DISPOSITION Discharge home today Follow up with the coumadin clinic Total Time Total Time Spent Total Time Spent (In Minutes): 35 minutes Total Time Includes: Examination of the Patient, Discharge Planning, Medication Reconciliation, Communication With Other Providers and Other Discharge Plan Discharge Items Patient Disposition: Home - Self-Care Reason For Visit: PE Discharge Diagnosis: Bilateral pulmonary embolism Hypertension HX OF ROTATOR CUFF INJURY Condition on Discharge: Good Activity: Resume your previous activity Non-emergency contact: Primary Care Provider Call non-emergency contact if: you have any medication questions Follow-up/Referrals: Ranulfo Schumacher DO [Primary Care Provider] - 03/22/20 11:20 am (03/22/2020 11:20 AM Provider Taina Bautista MD Department General Internal [facility] ) Diet: Heart Healthy Addtl Attending Provider Instructions: Follow up with primary care provider Dr. Schumacher on 03/22/20 @ 11:20 AM Follow up with the coumadin clinic to monitor your PT/INR Check your PT/INR as instructed by the coumadin clinic Continue lovenox for now until INR at goal (INR goal between 2 to 3) Fall precaution Hypercoagulable work up pending (Your physician will discuss the result with you at the next appointment) Monitor your blood pressure and bring your blood pressure log at your next appointment with your physician Medication Instructions: Coumadin Warfarin is a medicine prescribed to prevent blood clots Warfarin will thin your blood and help prevent new clots Take your medications exactly as directed Never skip a dose. Never take a double dose. If you miss a dose, take it as soon as you remember It is important for your doctor to monitor your prothrombin time (PT). This is a lab test Keep your appointment for lab tests Risk of Adverse Drug Reactions and Interactions: Warfarin increases your risk of bleeding The food you eat and other medications you take can affect how Warfarin works in your body Ask your doctor about daily aspirin therapy It is very important to talk with your doctor about all of the other medicines, antibiotics, vitamins or herbal products that you are taking All of your medication must be approved by your doctor, including new medicines, as well as medicines you have taken before you started taking Warfarin Avoid NSAIDs (Motrin, Aleve, Naproxen, Ibuprofen, Advil, Meloxicam,..) due to risks of bleeding Diet: In order for Warfarin to work properly, it is important to keep your intake of Vitamin K as consistent as possible You should avoid any sudden change in Vitamin K intake Report any significant changes in your diet or weight to your doctor Call your Primary Care doctor if you experience any of the following: Swelling or Pain in your leg Sudden, continuous pain deep in a muscle Pain that worsens when you are active or when you stand still for a long time Chest Pain Sudden Shortness of Breath Rapid or pounding heart beat Fainting Dizziness Cough with blood or bloody sputum Sweating more than normal Bruises Heavy or uncontrolled bleeding Blood in your urine, stool or vomit Black or tarry stools Caring for Your Self at Home: Avoid sitting, standing or lying down for long periods without moving your legs and feet When traveling by car, stop to get out and move around at least once every 3 hours On long airplane, train or bus rides, get up and move around when possible If you can't get up, wiggle your toes and tighten your calves to keep your blood moving Pending Studies at Discharge: Yes Studies:: Hypercoagulable panel pending Stand-Alone Forms: [facility], Smoking Cessation Medications and DC Order Prescriptions: New warfarin 5 mg Tablet 5 mg PO DAILY@1600 Qty: 30 RF: 0 enoxaparin [Lovenox] 80 mg/0.8 mL Syringe 70 mg subcut Q12H 5 Days Qty: 7 RF: 0 amlodipine 2.5 mg tablet 2.5 mg PO DAILY Qty: 30 RF: 0 Continued carvedilol 6.25 mg Tablet 6.25 mg PO QAM RF: 0 oxybutynin chloride 10 mg Tablet Extended Release 24hr 10 mg PO QAM RF: 0 famotidine 20 mg Tablet 20 mg PO HS RF: 0 gabapentin 100 mg Capsule 100 mg PO BID RF: 0 multivitamin Tablet 1 tab PO HS RF: 0 aspirin [Aspir-81] 81 mg Tablet,Delayed Release (Dr/Ec) 81 mg PO HS RF: 0 cholecalciferol (vitamin D3) [Vitamin D3] 125 mcg (5,000 unit) Tablet 125 mcg PO HS RF: 0 acetaminophen [Tylenol Extra Strength] 500 mg Tablet 500 mg PO Q6H PRN (Reason: Pain) RF: 0 oxycodone-acetaminophen 10-325 mg Tablet 1 tab PO Q6H PRN (Reason: Pain) RF: 0 meclizine 12.5 mg tablet 12.5 mg PO TID PRN (Reason: DIZZY) RF: 0 citalopram 20 mg tablet 20 mg PO QAM RF: 0 pantoprazole 40 mg tablet,delayed release (DR/EC) 40 mg PO QAM RF: 0 Discharge Orders: Discharge Order (Routine); Ordered 03/15/20 Ordered By: Zaki Biggs Admission Data Admit Date/Time: 03/12/20 20:10 Attending Provider: Zaki Biggs Admit Provider: Efe Stevens Primary Care Provider: Ranulfo Schumacher Other Providers: Efe Stevens Other Interventions: Discharge Summary Assessment (RN) Last Done: 03/15/20 16:22 DC Date/Time DO NOT enter until pt leaves facility: 03/15/20 17:05
[2020-03-16 15:58] LABS: Anti Cardiolipin Ab IgG <14 GPL; Anti Cardiolipin Ab IgM <12 MPL; Anti-Thrombin III Activity 102 % activity (80-120); PTT LA Screen 38 sec (<=40)
== END 2020-03-15 17:05 | disposition home or self-care (01) | DRG 176 ==
LOC: ED 16:16 → SUATTDRO 20:10 → 2W 20:10

== ENCOUNTER 2020-06-18 10:26 | Inpatient (IN) ==
--- NOTE | 2020-03-11 21:31 | PAT Medication Instructions ---
Medication Instructions Date of Service March 11, 2020 Home Medications citalopram 20 mg PO QAM pantoprazole 40 mg PO QAM acetaminophen [Tylenol Extra Strength] 500 mg PO Q6H PRN aspirin [Aspir-81] 81 mg PO HS carvedilol 6.25 mg PO QAM cholecalciferol (vitamin D3) [Vitamin D3] 125 mcg PO HS famotidine 20 mg PO HS gabapentin 100 mg PO BID multivitamin 1 tab PO HS oxybutynin chloride 10 mg PO QAM oxycodone-acetaminophen 1 tab PO Q6H PRN ASK your prescriber and surgeon aspirin 81 mg PO HS DO NOT take the morning of surgery oxybutynin chloride 10 mg PO QAM Take morning of surgery With a small sip of water, OTHERWISE NOTHING TO EAT OR DRINK AFTER MIDNIGHT: citalopram 20 mg PO QAM pantoprazole 40 mg PO QAM acetaminophen [Tylenol Extra Strength] 500 mg PO Q6H PRN (okay to take up to 4 hours prior to surgery if needed) carvedilol 6.25 mg PO QAM gabapentin 100 mg PO BID oxycodone-acetaminophen 1 tab PO Q6H PRN (okay to take up to 4 hours prior to surgery if needed) Take evening before surgery acetaminophen [Tylenol Extra Strength] 500 mg PO Q6H PRN (if needed) cholecalciferol (vitamin D3) [Vitamin D3] 125 mcg PO HS famotidine 20 mg PO HS gabapentin 100 mg PO BID multivitamin 1 tab PO HS oxycodone-acetaminophen 1 tab PO Q6H PRN (if needed) Other Notes If you have any questions please call us at [phone] or [phone] or [phone] or [phone]
--- NOTE | 2020-05-23 09:01 | PAT Medication Instructions ---
Medication Instructions Date of Service May 23, 2020 Home Medications Medication Instructions Recorded warfarin 5 mg PO DAILY@1600 #30 tab 03/15/20 citalopram 20 mg PO QAM pantoprazole 40 mg PO QAM acetaminophen [Tylenol Extra Strength] 500 mg PO Q6H PRN aspirin [Aspir-81] 81 mg PO HS carvedilol 6.25 mg PO QAM cholecalciferol (vitamin D3) [Vitamin D3] 125 mcg PO HS famotidine 20 mg PO HS gabapentin 100 mg PO BID multivitamin 1 tab PO HS oxybutynin chloride 10 mg PO QAM oxycodone-acetaminophen 1 tab PO Q6H PRN meclizine 12.5 mg PO TID PRN warfarin 5 mg PO DAILY@1600 amlodipine 2.5 mg PO QAM ASK your prescriber and surgeon aspirin [Aspir-81] 81 mg PO HS warfarin 5 mg PO DAILY@1600 DO NOT take the morning of surgery oxybutynin chloride 10 mg PO QAM Take morning of surgery With a small sip of water, OTHERWISE NOTHING TO EAT OR DRINK AFTER MIDNIGHT: citalopram 20 mg PO QAM pantoprazole 40 mg PO QAM acetaminophen [Tylenol Extra Strength] 500 mg PO Q6H PRN (okay to take up to 4 hours prior to surgery if needed) carvedilol 6.25 mg PO QAM gabapentin 100 mg PO BID oxycodone-acetaminophen 1 tab PO Q6H PRN (okay to take up to 4 hours prior to surgery if needed) meclizine 12.5 mg PO TID PRN (if needed) amlodipine 2.5 mg PO QAM Take evening before surgery acetaminophen [Tylenol Extra Strength] 500 mg PO Q6H PRN (if needed) cholecalciferol (vitamin D3) [Vitamin D3] 125 mcg PO HS famotidine 20 mg PO HS gabapentin 100 mg PO BID multivitamin 1 tab PO HS oxycodone-acetaminophen 1 tab PO Q6H PRN (if needed) meclizine 12.5 mg PO TID PRN (if needed) Other Notes If you have any questions please call us at [phone] or [phone] or [phone] or [phone]
--- NOTE | 2020-05-23 12:03 | Anesthesiology Consultation ---
Date of Service May 23, 2020 Assessment & Plan (1) Encounter for pre-operative examination: COVID Status: As of 05/23 assessment, patient denies travel to endemic area, known exposure/sick contacts, or symptoms of COVID19. Patient instructed that they and their household members must follow strict social distancing guidelines, wear a mask in public and avoid travel for 14 days prior to surgery. Preoperative COVID19 testing to be completed prior to surgery per surgeon's arra ngements. Patient made aware to self-isolate as much as possible between COVID testing and surgery. Chart Review Chart Review: Acceptable Risk for Surgery and Patient seen in Pre Admission Testing Teaching & Discussion Instructed NPO after midnight before surgery, except medications with 15 cc of water. Medication instructions provided according to the PAT guidelines. History Surgery Operation Date: 03/30/20 14:20 Proposed Procedures p Left Reverse total Shoulder Arthroplasty - Amadeo Gaspar DO Operation Date: 06/18/20 11:10 Proposed Procedures p Left Reverse Total Shoulder Arthroplasty - Amadeo Gaspar DO Height/Weight Height: 5 ft 3 in Weight: 70.2 kg Allergies Allergy/AdvReac Type Severity Reaction Status Date / Time No Known Allergies Allergy Verified 05/16/20 08:50 Medications Home Medications Medication Instructions Recorded Confirmed Last Taken citalopram 20 mg PO QAM 08/31/18 05/16/20 07/26/19 pantoprazole 40 mg PO QAM 08/31/18 05/16/20 07/27/19 acetaminophen [Tylenol Extra 500 mg PO Q6H PRN 03/09/20 05/16/20 Unknown Strength] aspirin [Aspir-81] 81 mg PO HS 03/09/20 05/16/20 Unknown carvedilol 6.25 mg PO QAM 03/09/20 05/16/20 Unknown cholecalciferol (vitamin D3) 125 mcg PO HS 03/09/20 05/16/20 Unknown [Vitamin D3] famotidine 20 mg PO HS 03/09/20 05/16/20 Unknown gabapentin 100 mg PO BID 03/09/20 05/16/20 Unknown multivitamin 1 tab PO HS 03/09/20 05/16/20 Unknown oxybutynin chloride 10 mg PO QAM 03/09/20 05/16/20 Unknown oxycodone-acetaminophen 1 tab PO Q6H PRN 03/09/20 05/16/20 Unknown meclizine 12.5 mg PO TID PRN 03/12/20 05/16/20 Unknown warfarin 5 mg PO DAILY@1600 #30 tab 03/15/20 05/16/20 Unknown amlodipine 2.5 mg PO QAM 05/16/20 05/16/20 Unknown albuterol 90 mcg INHALATION Q6H PRN 05/23/20 05/23/20 Unknown Past Medical History Medical History Asthma Using albuterol inhaler TID now since PEs. Previously wasn't using inhaler at all. Cancer LUNG AND PROSTATE CANCER, both treated surgically Degenerative disc disease GERD (gastroesophageal reflux disease) HTN (hypertension) Migraine HX OF On anticoagulant therapy Osteoarthritis Pulmonary embolism hospitalized 03/12/2020-03/15/2020 [facility] w/ BL PE; unk etiology; on coumadin Exercise / Class Metabolic Activity II 4-5 Yardwork/Stairs/Walk up hill (Does stairs at home, denies any chest pain, some mild ZHAO at times) Past Family History Family History Father FHx: prostate cancer Grandfather (Paternal) FHx: prostate cancer Past Surgical History Surgical History History of adenoidectomy History of carpal tunnel release RT X 2 LEFT X 3 History of cataract surgery LEFT/RIGHT History of colonoscopy History of esophagogastroduodenoscopy (EGD) History of herniorrhaphy RT INGUINAL History of laminectomy LUMBAR History of lobectomy of lung RT MIDDLE LOBE History of prostatectomy History of tonsillectomy History of tooth extraction Past Anesthesia History No Hx of Anesthesia Complications and No Family Hx of Anesthesia Complications History of PONV No Hx of PONV and No Hx of Motion Sickness Social History Smoking Status: Former smoker tobacco type: cigars Do You Dip or Chew Tobacco: No Smoking End Date: QUIT YRS AGO Hx Alcohol Use: No Hx Substance Use: No substance use type: does not use Review of Systems Pt denies any recent chest pain, shortness of breath, palpitations, cough, fever, URI, or uncontrolled acid reflux. +dry mouth with some loss of taste (has been tested 3x for COVID, all negative) Physical Exam Vital Signs BP: 158/85 P: 64bpm SPO2: 95% RA T: 98.2 F R: 16 ENMT Mouth: + dental restorations (crowns on a few molars); no chipped teeth and no loose teeth Thyromental Distance: < 3.5 Finger Breadths (3) Mallampati Class: II Neck normal visual inspection, + limited neck extension (pain with full extension) and + facial hair (short/medium length barrera/mustache) Respiratory normal respiratory effort Auscultation: lungs clear to auscultation bilaterally Cardiovascular Rate/Rhythm: regular rate and regular rhythm Heart Sounds: no murmur Extremities: no edema Testing Laboratory Results 05/23/20 12:18 05/23/20 12:18 PT 20.9 Seconds (9.0-12.0) H 05/23/20 12:18 INR 2.1 (0.9-1.1) H 05/23/20 12:18 APTT 40.2 Seconds (21.0-31.0) H 05/23/20 12:18 Blood Type B Positive 05/23/20 12:18 Antibody Screen NEGATIVE 05/23/20 12:18 Electrocardiogram Date: 03/12/20 Findings: + NSR @ (75bpm) Moderate voltage criteria for LVH, may be normal variant. PRWP, consider anterior WA vs lead placement vs LVH. Compared with EKG from 08/31/18, PACs no longer present. Chest X-Ray Date: 05/23/20 1. No acute pulmonary findings. 2. Stable mild cardiomegaly. 3. Small hiatal hernia. Echocardiogram Date: 03/13/20 EF: 60-65% No segmental left ventricular wall motion abnormalities are noted. The right ventricular cavity size is normal. Normal RV systolic function by TAPSE.
--- NOTE | 2020-05-23 12:38 | XRay Report ---
XR chest Pre-admission PA/Lat CLINICAL HISTORY: Preoperative evaluation. COMPARISON STUDY: Chest CT and chest radiograph March 12, 2020 FINDINGS: Lung volumes are normal. Lungs are clear. There is no pneumothorax or pleural effusion. Mil d cardiomegaly is unchanged. Mediastinal contours are normal. There is no evidence for pulmonary hilary a. Small hiatal hernia is noted. IMPRESSION: 1. No acute pulmonary findings. 2. Stable mild cardiomegaly. 3. Small hiatal hernia. ACT 112: Negative or not required by law. Electronically signed by: Colin Mai M.D. 05/23/2020 12:37 PM
[2020-05-23 13:30] LABS: Basophils # (auto) 0.01 K/uL (0-0.2); Basophils % (auto) 0.1 %; Eosinophils # (auto) 0.17 K/uL (0-0.5); Eosinophils % (auto) 2.4 %; Hematocrit (blood only) 41.4 % (42-52); Hemoglobin 13.8 g/dL (14.0-18.0); Immature Granulocytes # (auto) 0.02 K/uL (0.00-0.02); Immature Granulocytes % (auto) 0.3 %; Lymphocytes # (auto) 1.95 K/uL (1.2-3.4); Lymphocytes % (auto) 27.2 %; Mean Corpuscular Hemoglobin 29.7 pg (25-34); Mean Corpuscular Hgb Conc 33.3 g/dL (32-36); Mean Platelet Volume 9.5 fL (7.4-10.4); Monocytes # (auto) 0.62 K/uL (0.11-0.59); Monocytes % (auto) 8.6 %; Neutrophils # (auto) 4.41 K/uL (1.4-6.5); Neutrophils % (auto) 61.4 %; Platelet Count 218 K/uL (130-400); RDW Coefficient of Variation 14.2 % (11.5-14.5); RDW Standard Deviation 46.2 fL (36.4-46.3); Red Blood Count 4.65 M/uL (4.7-6.1); White Blood Count 7.18 K/uL (4.8-10.8)
[2020-05-23 13:37] LABS: Est GFR (African American) 58.9; Potassium 4.3 mmol/L (3.5-5.1)
[2020-05-23 13:38] LABS: BUN Creatinine Ratio 15.3 (10-20); Calcium 8.8 mg/dl (8.5-10.1); Creatinine Clr Calc Pharmacy 38.6 ml/min; Est GFR (Non-African American) 50.8
[2020-05-23 13:45] LABS: INR 2.1 (0.9-1.1); Partial Thromboplastin Ratio 1.4; Partial Thromboplastin Time 40.2 Seconds (21.0-31.0); Prothrombin Time 20.9 Seconds (9.0-12.0)
--- NOTE | 2020-06-14 12:20 | History & Physical Report ---
Date of Service June 14, 2020 Assessment & Plan (1) Rotator cuff arthropathy of left shoulder: We will proceed with a left reverse shoulder arthroplasty. Postoperatively he will be started on Coumadin and Lovenox. We will keep him overnight in the hospital for postop medical management. He plans to do outpatient physical therapy upon discharge. Present on Admission?: Yes History of Present Illness Chief Complaint: Rotator cuff arthropathy of the left shoulder Primary Care Provider: Ranulfo Schumacher DO Mor is a pleasant 80-year-old male who has been dealing with a long history of left shoulder pain and weakness. 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 He is in a lot of pain. MRI of his shoulder did show a massive retracted rotator cuff tear. After failing conservative treatment, he has elected to proceed with a left reverse shoulder arthroplasty. He did recently have a pulmonary embolus and is on Coumadin for that. Allergies Allergy/AdvReac Type Severity Reaction Status Date / Time No Known Allergies Allergy Verified 05/16/20 08:50 Home Medications Home Medications Medication Instructions Recorded Confirmed Type citalopram 20 mg PO QAM 08/31/18 05/16/20 History pantoprazole 40 mg PO QAM 08/31/18 05/16/20 History acetaminophen [Tylenol Extra 500 mg PO Q6H PRN 03/09/20 05/16/20 History Strength] aspirin [Aspir-81] 81 mg PO HS 03/09/20 05/16/20 History carvedilol 6.25 mg PO QAM 03/09/20 05/16/20 History cholecalciferol (vitamin D3) 125 mcg PO HS 03/09/20 05/16/20 History [Vitamin D3] famotidine 20 mg PO HS 03/09/20 05/16/20 History gabapentin 100 mg PO BID 03/09/20 05/16/20 History multivitamin 1 tab PO HS 03/09/20 05/16/20 History oxybutynin chloride 10 mg PO QAM 03/09/20 05/16/20 History oxycodone-acetaminophen 1 tab PO Q6H PRN 03/09/20 05/16/20 History meclizine 12.5 mg PO TID PRN 03/12/20 05/16/20 History warfarin 5 mg PO DAILY@1600 #30 tab 03/15/20 05/16/20 Rx amlodipine 2.5 mg PO QAM 05/16/20 05/16/20 History albuterol 90 mcg INHALATION Q6H PRN 05/23/20 05/23/20 History Past Med/Surg History Medical History Asthma Using albuterol inhaler TID now since PEs. Previously wasn't using inhaler at all. Cancer LUNG AND PROSTATE CANCER, both treated surgically Degenerative disc disease GERD (gastroesophageal reflux disease) HTN (hypertension) Migraine HX OF On anticoagulant therapy Osteoarthritis Pulmonary embolism hospitalized 03/12/2020-03/15/2020 [facility] w/ BL PE; unk etiology; on coumadin Surgical History History of adenoidectomy History of carpal tunnel release RT X 2 LEFT X 3 History of cataract surgery LEFT/RIGHT History of colonoscopy History of esophagogastroduodenoscopy (EGD) History of herniorrhaphy RT INGUINAL History of laminectomy LUMBAR History of lobectomy of lung RT MIDDLE LOBE History of prostatectomy History of tonsillectomy History of tooth extraction Family History Father FHx: prostate cancer Grandfather (Paternal) FHx: prostate cancer Social History Smoking Status: Former smoker Tobacco Type: Cigars Second Hand Exposure: No; Hx Alcohol Use: No Hx Substance Use: No Preferred Language: Uzbek Communication Ability: Effective [employer] Underwriter Required: No Beliefs That Will Affect Care: None marital status: Current Living Situation: Spouse Feels Safe at Home: Yes Review of Systems Review of Systems: All systems reviewed & are unremarkable except as noted in HPI & below Physical Exam Constitutional: WD/WN, vitals as above Eyes: PERRL, conjunctivae normal, anicteric sclerae ENMT: external ear and nose normal, oropharynx normal Neck: trachea midline, no thyromegaly Respiratory: normal respiratory effort Cardiovascular: RRR, no murmur, no edema Gastrointestinal (Abdomen): normal bowel sounds, soft, nontender, no hepatosplenomegaly Musculoskeletal: Physical examination of the left shoulder reveals decreased range of motion and significant weakness. There is tenderness palpation along the anterior glenohumeral joint line. The right upper extremity is neurovascularly intact. Psychiatric: A+Ox3, euthymic affect Results & Data Results & Data ([facility]) Diagnostic Findings Radiographs of the left shoulder show some signs of osteoarthritis with blunting of the greater tuberosity and some superior migration of the humeral head on the glenoid. PG Care Time/CCT Total # of Minutes Spent Total Time Spent with Patient: Total time spent is greater than 50% in coordination of care (as documented) at patient's floor/unit and/or counseling patient: Coding Level of Care Code 57302 Initial Inpt Care Lvl 2 Diagnoses Rotator cuff arthropathy of left shoulder M12.812
[2020-06-15 20:37] LABS: SARS CoV2 RNA (COVID-19) NOT DETECTED (NOT DETECTED)
[~2020-06-18 10:26] MED LIST changes: +ACETAMINOPHEN 500 MG TAB PO SCH; -ASPI-589 PO; +BUPIVACAINE 0.5 % 5 MG/1 ML PF 10ML VIAL ONE; -CLX20 PO; -COEN30CA8 PO; +FAMOTIDINE 20 MG TAB PO SCH; +GABAPENTIN 300 MG CAP PO SCH; +LR 15ML/HR IV SCH; +LR 60ML/HR IV SCH; -MISCCAP80 PO; -MULT-506 PO; -PANT1TAB48 PO; +ROPIVACAINE 0.5% HCL/PF 150 MG, BUPIVACAINE 0.5% MPF 30 ML, EPINEPHrine 30MG/30ML (OR U... INFIL SCH; -SIMV40TA2 PO; +TRANEXAMIC ACID 1,000 MG **IV Intra-op IV SCH; +TRANEXAMIC ACID 1,000 MG **IV Pre-op IV SCH; +ceFAZolin 1000MG 1,000 MG/7.5 ML SYR IV SCH; +dexAMETHasone 4 MG TAB PO SCH
--- NOTE | 2020-06-18 11:09 | History & Physical Bridge Note ---
Date of Service June 18, 2020 History & Physical Bridge Note I have examined the patient, reviewed the History & Physical and in the interval since the performance of the History & Physical I have noted the following changes of clinical significance: no changes noted
[2020-06-18 11:33] LABS: INR 1.2 (0.9-1.1); Partial Thromboplastin Ratio 1.3; Partial Thromboplastin Time 36.7 Seconds (21.0-31.0); Prothrombin Time 12.3 Seconds (9.0-12.0)
[2020-06-18] MEDS ORDERED: ROCURONIUM BROMIDE 10 MG/ML 5 ML VIAL IV ONE (11:55)
[2020-06-18] MEDS ORDERED: PROPOFOL IV EMULSION 10 MG/ML 20 ML VIAL IV ONE (11:55)
[2020-06-18] MEDS ORDERED: fentaNYL citrate 100 MCG/2 ML VIAL ONE (11:55)
[2020-06-18] MEDS ORDERED: MIDAZOLAM HCL 1 MG/ML 2ML VIAL ONE (11:55)
[2020-06-18] MEDS ORDERED: ORTHO JOINT ANESTHETIC ONE (12:15)
[2020-06-18] MEDS ORDERED: fentaNYL citrate 100 MCG/2 ML VIAL IV PRN (12:31)
[2020-06-18] MEDS ORDERED: ONDANSETRON INJ 2 MG/ML 2 ML VIAL IV PRN ×2 (12:31→16:40)
[2020-06-18] MEDS ORDERED: ePHEDrine sulfate 50 MG/ML AMP IV PRN (12:31)
[2020-06-18] MEDS ORDERED: ATROPINE SULFATE 0.1 MG/ML 10ML SYR IV PRN (12:31)
--- NOTE | 2020-06-18 14:13 | Operative Report ---
PG Post Operative Report Pre & Post Diagnosis Operation Date: 03/30/20 14:20 <No data on this case meets the specified criteria> Operation Date: 06/18/20 12:45 Pre-Op Diagnosis: LEFT SHOULDER rotator cuff arthropathy Post-Op Diagnosis: LEFT SHOULDER rotator cuff arthropathy I identified the patient and participated in the time-out.: Yes Procedure Operation Date: 03/30/20 14:20 <No data on this case meets the specified criteria> Operation Date: 06/18/20 12:45 Actual Procedures p Left Reverse Total Shoulder Arthroplasty(Left) - Amadeo Gaspar DO Surgeon Amadeo Gaspar DO Sweeper Driver Amadeo Edmond PAC Estimated Blood Loss 250 Findings Consistent with Post-Op Diagnosis Specimens Left humeral head Complications none Disposition Disposition: Recovery Room Indications Mor is a pleasant 80-year-old male who presented my office with severe shoulder pain and weakness. MRI and clinical examination were diagnostic for cuff arthropathy of the right shoulder. After failing conservative treatment, he elected to proceed with a right reverse shoulder arthroplasty. Description of Procedure Implants used: I used a [employer] Comprehensive reverse total shoulder arthroplasty system with a size 10 press fit micro humeral stem, a standard humeral tray and a standard humeral bearing, a 25 mm small augment baseplate with a 6.5 mm central screw and superior and inferior locking screws, and a size 40 mm eccentric glenosphere. Mor arrived at [facility] for the above procedure. He was seen in the preoperative holding area and the operative extremity was identified and signed. He was given a preoperative antibiotic, and an interscalene nerve block. He was taken back to the operating room, laid on table in supine posi tion, and put under general anesthesia. He was then put into the beachchair position. The shoulder was then prepped and draped in sterile fashion. A timeout was done and the patient and the operative extremity was properly identified. A deltopectoral approach was used. Dissection was taken down through the fascia and the deltoid was retracted laterally and the conjoined tendon was retracted m edially. The anterior shoulder was exposed. The biceps tendon was traumatically torn. The subscapularis was then directly released off the lesser tuberosity with a peel technique. The inferior capsule was released and the humeral head was dislocated. A canal finding reamer was sent down the center of the humeral canal. Sequential reaming up to a size 10 reamer was done. Off that reamer, a proximal humeral resection guide was placed. The proximal humerus was resected at 135 of inclination and 25 of retroversion. Osteophytes were then removed and the glenoid was exposed. Time was spent doing a complete capsular and labral release. The glenoid guide was then placed in the inferior aspect of the glenoid. A 3.2 mm Steinmann pin was then placed into the glenoid vault at 10 of inclination. The glenoid baseplate was then reamed. The final size 25 mm small augment baseplate was then impacted in the place. A 6.5 mm central screw was then placed followed by superior and inferior locking screws. A 40 mm eccentric glenosphere was then impacted into place. Surrounding soft tissues were then injected with 100 cc an orthopedic pain control cocktail. The proximal humerus was then exposed. Sequential broaching of the humerus up to a size 10 broach was done. Off that broach a standard humeral tray was trialed. The shoulder was then reduced, brought through a full range of motion, and felt to be stable. The shoulder was then dislocated and the broach was removed. The final size 10 micro press-fit humeral stem was then impacted into place. A standard humeral bearing was then snapped onto a standard humeral tray. The humeral tray was then impacted onto the humeral stem. The shoulder was once again reduced, brought through a full range of motion, and felt to be stable. The subscapularis was then tenodesed back to the lesser tuberosity with transosseous FiberWire sutures and side to side sutures with the arm in 45 of external rotation. A dilute betadyne lavage was then done for 3 minutes. The joint was then irrigated with normal saline solution. Hemostasis was obtained. The interval was closed with 2-0 Vicryl suture. The skin was then closed with 2-0 Vicryl and facundo. A Silverlon dressing was placed and the arm was rested in a regular arm sling. He was then extubated and transferred to a hospital bed. He taken to the postanesthesia care unit in stable condition. He tolerated the procedure well. Amadeo Edmond PA-C, was present for the entire procedure. He was critical for patient positioning, prepping, draping, retraction exposure, wound closure and application of sterile dressing. I attest to the content of the Intraoperative Record and any orders documented therein. Any exceptions are noted below.
[2020-06-18] MEDS ORDERED: GLYCOPYRROLATE 0.2 MG/ML VIAL ONE (14:49)
[2020-06-18] MEDS ORDERED: NEOSTIGMINE METHYLSULFATE 5 MG/5 ML SYR ONE (14:49)
[2020-06-18] MEDS ORDERED: ONDANSETRON INJ 2 MG/ML 2 ML VIAL ONE (14:49)
--- NOTE | 2020-06-18 15:11 | XRay Report ---
XR shoulder LT min 2V routine CLINICAL HISTORY: Post shoulder surgery COMPARISON: MRI dated 02/29/2020 DISCUSSION: There are postsurgical changes of a reverse total left shoulder arthroplasty. There is no dislocation. There is gas present within soft tissues consistent with recent surgery. There are over lying skin facundo. There are left basilar atelectatic changes. IMPRESSION: Postsurgical changes of a reverse total left shoulder arthroplasty. ACT 112: Negative or not required by law. Electronically signed by: Laci Brownlee M.D. 06/18/2020 3:10 PM
[2020-06-18] MEDS ORDERED: WARFARIN SOD 10 MG TAB PO SCH ×2 (16:00→20:00)
--- NOTE | 2020-06-18 16:21 | Anesthesiology Progress Note ---
Date of Service June 18, 2020 Anesthesia Post Procedure Vital Signs Vital Signs: Temp Pulse Pulse Resp BP Pulse Ox 06/18/20 15:57 65 16 115/70 99 06/18/20 15:50 77 16 105/67 99 06/18/20 15:40 78 16 105/67 98 06/18/20 15:30 36.3 C L 74 18 118/67 98 06/18/20 15:20 85 16 118/65 98 06/18/20 15:10 63 16 122/67 98 06/18/20 15:00 73 20 122/74 100 06/18/20 14:50 74 14 135/80 100 06/18/20 14:41 36.1 C L 72 12 140/85 97 06/18/20 12:10 75 18 115/98 93 Pain Intensity Bilateral Hand: Pain Intensity: 0 Transfer of Care Handoff Completed per policy Notes Mental Status: alert / awake / arousable Patient Amnestic to Procedure: Yes Nausea / Vomiting: adequately controlled Pain: adequately controlled Airway Patency, RR, SpO2: stable & adequate BP & HR: stable & adequate Hydration State: stable & adequate Anesthetic Complications: no major complications apparent Notes: block working well in pacu
[2020-06-18] MEDS ORDERED: ALBUTEROL HFA 8 GM INHALER INH PRN (16:40)
[2020-06-18] MEDS ORDERED: ENOXAPARIN 80 MG/0.8 ML SYR SQ SCH (16:40)
[2020-06-18] MEDS ORDERED: bisacodyL 10 MG SUPP PR PRN (16:40)
[2020-06-18] MEDS ORDERED: NALOXONE HCL 0.4 MG/1 ML VIAL/CARP IV PRN (16:40)
[2020-06-18] MEDS ORDERED: METOCLOPRAMIDE HCL INJ 5 MG/ML 2 ML VIAL IV PRN (16:40)
[2020-06-18] MEDS: SODIUM CHLORIDE 0.9% 1000ML 1,000 ML IV SCH (16:40)
[2020-06-18] MEDS ORDERED: MECLIZINE 12.5 MG TAB PO PRN (16:40)
[2020-06-18] MEDS ORDERED: HYDROmorphone INJ 0.5 MG/0.5 ML SYR IV PRN (16:40)
[2020-06-18] MEDS ORDERED: WARFARIN SOD 5 MG TAB PO SCH (16:40)
[2020-06-18] MEDS ORDERED: MAGNESIUM HYDROXIDE SUSP 30 ML UDC PO PRN (16:40)
[2020-06-18] MEDS: KETOROLAC TROMETHAMINE 15 MG/ML VIAL IV SCH ×2 (19:17→23:44)
[2020-06-18] MEDS: ceFAZolin 2000MG 2,000 MG/15 ML SYR IV SCH (20:27)
[2020-06-18] MEDS ORDERED: FAMOTIDINE 20 MG TAB PO SCH (21:00)
[2020-06-18] MEDS ORDERED: CHOLECALCIFEROL 1,000 UNITS 25 MCG TAB PO SCH (21:00)
[2020-06-18] MEDS ORDERED: SENNA 8.6 MG TAB PO SCH (21:00)
[2020-06-18] MEDS ORDERED: ASPIRIN 81 MG ECTAB PO SCH (21:00)
[2020-06-18] MEDS: DOCUSATE SODIUM 100 MG CAP PO SCH (21:51)
[2020-06-18] MEDS: ACETAMINOPHEN 500 MG TAB PO SCH (21:51)
[2020-06-18] MEDS: GABAPENTIN 100 MG CAP PO SCH (21:51)
[2020-06-18] MEDS: oxyCODONE HCL IR 5 MG TAB (IMMEDIATE RELEASE) PO PRN (22:40)
[2020-06-19] MEDS: SODIUM CHLORIDE 0.9% 1000ML 1,000 ML IV SCH (02:15)
[2020-06-19] MEDS: ceFAZolin 2000MG 2,000 MG/15 ML SYR IV SCH (03:53)
[2020-06-19] MEDS: ACETAMINOPHEN 500 MG TAB PO SCH (06:08)
[2020-06-19] MEDS: KETOROLAC TROMETHAMINE 15 MG/ML VIAL IV SCH (06:08)
[2020-06-19 06:11] LABS: Eosinophils # (auto) 0.01 K/uL (0-0.5); Eosinophils % (auto) 0.1 %; Hematocrit (blood only) 33.4 % (42-52); Hemoglobin 11.1 g/dL (14.0-18.0); Immature Granulocytes # (auto) 0.03 K/uL (0.00-0.02); Immature Granulocytes % (auto) 0.3 %; Lymphocytes # (auto) 0.99 K/uL (1.2-3.4); Lymphocytes % (auto) 8.3 %; Mean Corpuscular Hemoglobin 29.1 pg (25-34); Mean Corpuscular Hgb Conc 33.2 g/dL (32-36); Mean Corpuscular Volume 87.7 fL (80-100); Mean Platelet Volume 9.2 fL (7.4-10.4); Monocytes # (auto) 0.71 K/uL (0.11-0.59); Monocytes % (auto) 5.9 %; Neutrophils # (auto) 10.26 K/uL (1.4-6.5); Neutrophils % (auto) 85.4 %; Platelet Count 209 K/uL (130-400); RDW Coefficient of Variation 13.7 % (11.5-14.5); RDW Standard Deviation 43.7 fL (36.4-46.3); Red Blood Count 3.81 M/uL (4.7-6.1)
[2020-06-19 06:45] LABS: BUN Creatinine Ratio 19.4 (10-20); Calcium 8.1 mg/dl (8.5-10.1); Est GFR (African American) 54.8; Est GFR (Non-African American) 47.3; Potassium 4.2 mmol/L (3.5-5.1)
--- NOTE | 2020-06-19 06:46 | Orthopedic Progress Note ---
Date of Service June 19, 2020 Assessment & Plan (1) Status post reverse arthroplasty of left shoulder: Overall he is doing very well. He is not having much pain in the left shoulder. He will be seen by physical therapy today for ambulation and range of motion exercises. He is back on his Lovenox and Coumadin. He can be discharged home later today. He will follow-up with orthopedics in 2 weeks. Present on Admission?: Yes Admission and Anticipated Discharge Date Admission Date: June 18, 2020 Meggan Juares was seen and examined at bedside this morning. Overall he is doing fairly well. He had some bleeding from his dressing last night and the dressing was changed. Otherwise he is doing well. He has no complaints. Physical Exam Musculoskeletal: On physical examination of the left shoulder, the current dressing is clean and dry. His radial, median, and ulnar nerves are checked intact his wrist. He is wearing his sling as instructed. Results & Data ([facility]) Vital Signs (Past 12 Hours) Vital Signs Temp Pulse Pulse Resp BP Pulse Ox 06/19/20 03:54 36.5 C 97 H 16 114/72 95 06/18/20 23:30 103 H 06/18/20 23:09 37.0 C 110 H 16 121/72 94 06/18/20 20:14 36.6 C 113 H 16 122/74 94 Laboratory Results H & H 05/23/20 06/19/20 Range/Units 12:18 05:44 Hgb 13.8 L 11.1 L (14.0-18.0) g/dL Hct 41.4 L 33.4 L (42-52) % Coagulation 05/23/20 06/18/20 Range/Units 12:18 11:07 INR 2.1 H 1.2 H (0.9-1.1) Diagnostic Findings Postoperative x-rays of the left shoulder show the prosthesis to be in anatomic alignment without any evidence of fracture, dislocation, or loosening. PG Care Time/CCT Total # of Minutes Spent Total Time Spent with Patient: Total time spent is greater than 50% in coordination of care (as documented) at patient's floor/unit and/or counseling patient: Coding Level of Care Code None Diagnoses Status post reverse arthroplasty of left shoulder Z96.612
--- NOTE | 2020-06-19 06:48 | Discharge Summary ---
Date of Service June 19, 2020 Admission HPI Per Admitting Provider Mor is a pleasant 80-year-old male who has been dealing with a long history of left shoulder pain and weakness. 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 He is in a lot of pain. MRI of his shoulder did show a massive retracted rotator cuff tear. After failing conservative treatment, he has elected to proceed with a left reverse shoulder arthroplasty. He did recently have a pulmonary embolus and is on Coumadin for that. Principal Diagnosis Right knee replacement Discharge Data Allergies Allergy/AdvReac Type Severity Reaction Status Date / Time No Known Allergies Allergy Verified 05/16/20 08:50 Consultations 06/18/20 16:40 Consult Case Management - Discharge Planning Routine Procedures Performed Operation Date: 03/30/20 14:20 <No data on this case meets the specified criteria> Operation Date: 06/18/20 12:45 Actual Procedures p Left Reverse Total Shoulder Arthroplasty(Left) - Amadeo Gaspar DO Ordered Studies 06/18/20 05:00 US - OR guided needle placemen Routine Hospital Course (1) Status post reverse arthroplasty of left shoulder: On June 18, 2020 Mor arrived at [facility] and u nderwent a right knee replacement without complication. He had a general anesthetic and a right interscalene nerve block. Postoperatively he was placed in an arm sling and transferred to the general orthopedic floors. His hospital course was uneventful. On postop day #1 his H&H was stable and his pain was well controlled. He was able to participate well with physical therapy doing ambulation and range of motion exercises. He was then discharged home. He will follow-up with orthopedics in 2 weeks. Total Time Total Time Spent Total Time Spent (In Minutes): 20 Discharge Plan Discharge Items Patient Disposition: Home - Home Health Services Reason For Visit: LEFT SHOULDER DEGENERATIVE JOINT DISEASE Discharge Diagnosis: Left reverse shoulder replacement Activity: As commented below Non-emergency contact: Surgeon Call non-emergency contact if: your wound has increased redness and your wound has increased drainage Follow-up/Referrals: Ranulfo Schumacher DO [Primary Care Provider] - Diet: Regular Addtl Attending Provider Instructions: Activity and Therapy Recommendations: * If you are using [facility] then therapy will be provided at your home until they feel you have accomplished all of your goals. * If you are using [facility] then Physical Therapy will be provided until they feel you are ready to start Outpatient Physical Therapy. * If you are not using home therapy then Outpatient Physical Therapy should start about 3-5 days from your day of surgery. Therapy will last about 8-12 weeks * Wear your sling for 3 weeks, unless otherwise instructed. You may remove your sling to shower and to dress, but otherwise, you should be in your sling at all times, including while sleeping * The shoulder replacement is very stable and you can use your hand while in the sling * You were shown a series of exercises in the hospital. Do these exercises daily including the exercises you were shown in physical therapy. Medications: * Narcotic You will likely be sent home from the hospital with a prescription for the narcotic pain medication that worked best throughout your stay. * Other medications may be prescribed for specific circumstances. If you have any questions, please call the office at . * Resume previous home medications unless otherwise instructed Dressing Care: Leave the Silverlon dressing in place for 7 days. After 7 days you may remove the dressing. If the incision is not draining then you may leave the facundo open to air. If there is a little bit of drainage or if the facundo are getting stuck on your clothing then cover the incision with a dry dressing. The facundo will be removed at your 2 week follow-up appointment. Showering: You may shower with the Silverlon dressing in place. Do not let the shower spray hit the dressing directly. Pat the Silverlon dressing dry. If the dressing becomes wet underneath, then simply remove the dressing. Keep the incision dry until you are 7 days out from the day of surgery. After 7 days you may remove the Silverlon dressing and shower with the facundo exposed. Let soapy water run over the facundo and pat them dry. Do not scrub or soak the incision. Things To Watch For: * Drainage from the incision site that occurs more than one week after your surgery. * Increased redness at the incision site. * Fever above 102 degrees Fahrenheit. * Unusual chest pain or shortness of breath. * Call [facility] at with any of the above problems Follow-Up Visit: Follow-up with Dr. Gaspar's PA (Amadeo Edmond) 2-3 weeks after your day of surgery. He will remove your facundo and answer any questions. If you have any additional questions or concerns, Dr Gaspar is usually in the office at the same time and will be available An appointment was probably scheduled when you signed-up for surgery in the office. If you have any questions call More detailed instructions as well as Frequently Asked Questions were provided in a folder by our office when you signed-up for surgery. Please review these instructions when you get home. If you have any further questions or concerns, please feel free to call the office at [phone] Pending Studies at Discharge: No Stand-Alone Forms: My [facility], Smoking Cessation Medications and DC Order Prescriptions: New oxycodone 10 mg tablet 10 mg PO Q6H PRN (Reason: pain) Qty: 30 RF: 0 Continued carvedilol 6.25 mg Tablet 6.25 mg PO QAM RF: 0 oxybutynin chloride 10 mg Tablet Extended Release 24hr 10 mg PO QAM RF: 0 famotidine 20 mg Tablet 20 mg PO HS RF: 0 gabapentin 100 mg Capsule 100 mg PO BID RF: 0 multivitamin Tablet 1 tab PO HS RF: 0 aspirin [Aspir-81] 81 mg Tablet,Delayed Release (Dr/Ec) 81 mg PO HS RF: 0 cholecalciferol (vitamin D3) [Vitamin D3] 125 mcg (5,000 unit) Tablet 125 mcg PO HS RF: 0 acetaminophen [Tylenol Extra Strength] 500 mg Tablet 500 mg PO Q6H PRN (Reason: Pain) RF: 0 amlodipine 2.5 mg tablet 2.5 mg PO QAM RF: 0 albuterol 90 mcg/actuation Aerosol 90 mcg INHALATION Q6H PRN (Reason: Wheezing) RF: 0 enoxaparin [Lovenox] 60 mg/0.6 mL Syringe 70 mg SUBCUT Q12H RF: 0 meclizine 12.5 mg tablet 12.5 mg PO TID PRN (Reason: DIZZY) RF: 0 warfarin 5 mg Tablet 5 mg PO DAILY@1600 Qty: 30 RF: 0 citalopram 20 mg tablet 20 mg PO QAM RF: 0 pantoprazole 40 mg tablet,delayed release (DR/EC) 40 mg PO QAM RF: 0 Discontinued oxycodone-acetaminophen 10-325 mg Tablet 1 tab PO Q6H PRN (Reason: Pain) RF: 0 Discharge Orders: Discharge Order (Routine); Ordered 06/19/20 Ordered By: Amadeo Gaspar Admission Data Admit Date/Time: 06/18/20 14:33 Attending Provider: Amadeo Gaspar Admit Provider: Amadeo Gaspar Primary Care Provider: Ranulfo Schumacher Coding Level of Care Code D/C Day Management <30 mins Diagnoses Status post reverse arthroplasty of left shoulder Z96.612
[2020-06-19] MEDS ORDERED: dexAMETHasone 4 MG TAB PO SCH (08:00)
[2020-06-19] MEDS: oxyCODONE HCL IR 5 MG TAB (IMMEDIATE RELEASE) PO PRN (08:28)
[2020-06-19] MEDS: DOCUSATE SODIUM 100 MG CAP PO SCH (08:29)
[2020-06-19] MEDS: GABAPENTIN 100 MG CAP PO SCH (08:32)
[2020-06-19] MEDS ORDERED: PANTOprazole 40 MG TAB PO SCH (09:00)
[2020-06-19] MEDS ORDERED: MULTIVITAMIN TAB PO SCH (09:00)
[2020-06-19] MEDS ORDERED: amLODIPine BESYLATE 5 MG TAB PO SCH (09:00)
[2020-06-19] MEDS ORDERED: CITALOPRAM 20 MG TAB PO SCH (09:00)
[2020-06-19] MEDS ORDERED: carvediloL 6.25 MG TAB PO SCH (09:00)
[2020-06-19] MEDS ORDERED: OXYBUTYNIN CHLORIDE XL 5 MG TABCR PO SCH (09:00)
[2020-06-19] MEDS ORDERED: ENOXAPARIN 80 MG/0.8 ML SYR SQ SCH (20:00)
--- NOTE | 2020-12-26 08:26 | Coding Query ---
CODING QUERY To promote full compliance with coding requirements relating to patient care, provider participation is requested in all cases of lens matcher uncertainty. 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 After failing conservative treatment, he elected to proceed with a right reverse shoulder arthroplasty" and the Discharge Summary documents Right Knee Replacement. Please clarify below, due to conflicting documentation, the procedure performed during this admission. ( X ) Left Reverse Shoulder Arthroplasty ( ) Right reverse Shoulder Arthroplasty ( ) Right Knee Replacement ( ) Other: Please Specify Physician's Response(s): Thank you Lisseth Zhao Principal Diagnosis: "that condition established after study, to be chiefly responsible for occasioning the admission of the patient to the hospital for care." Co-Existing Principal Diagnosis: "when two or more diagnoses equally meet the criteria for principal diagnosis as determined by the circumstances of admission, diagnostic work up, and/or therapy provided, and the Alphabetic Index, Tabular List, or another coding guideline does not provide sequencing direction, any one of the diagnoses may be sequenced first." "When the physician has documented what appears to be a current diagnosis in the body of the record, but has not included the diagnosis in the final diagnostic statement, the physician should be asked whether the diagnosis should be added." (Source [facility] 2 QTR90. p3-4) LADONNA
== END 2020-06-19 11:54 | disposition home or self-care (01) | DRG 483 ==
LOC: ASU 10:26 → EDSTATUS 11:10 → OBSVTOIN 14:33 → 3E 14:33 → INTOOBSV 14:33

== ENCOUNTER 2020-07-04 13:43 | Observation (INO) ==
--- NOTE | 2020-07-04 14:27 | XRay Report ---
XR chest 1V portable HISTORY: 80 years-old Male Chest Pain acute atypical chest pain COMPARISON: Chest radiograph 05/23/2020 TECHNIQUE: Portable AP view of the chest FINDINGS: Cardiac silhouette is again mildly enlarged. Left shoulder total joint arthroplasty. Degenerative mary alice nges of the spine and right shoulder. Calcified plaque of the thoracic aortic arch. Surgical clips ar e again noted projecting over the right hilum. Small hiatal hernia suggested. No pneumothorax, pleura l effusion or overt pulmonary. Skinfold projects over the left lung apex. Mild chronic interstitial c oarsening. IMPRESSION: 1. Chronic findings as above without acute process. 2. Skinfold projects of the left lung apex. No pneumothorax identified. ACT 112: Negative or not required by law. The above report was generated using voice recognition software. It may contain grammatical, syntax o r spelling errors. Electronically signed by: Richard Hi M.D. 07/04/2020 2:25 PM
--- NOTE | 2020-07-04 14:42 | Electrocardiogram Report ---
Test Reason : Blood Pressure : / mmHG Vent. Rate : 080 BPM Atrial Rate : 080 BPM P-R Int : 168 ms QRS Dur : 076 ms QT Int : 382 ms P-R-T Axes : 056 -13 -11 degrees QTc Int : 440 ms Normal sinus rhythm Poor R wave progression, consider anterior [place] vs. lead placement vs. LVH Normal ECG When compared with ECG of 12-MAR-2020 21:33, No significant change was found Confirmed by Pierre Martell ([id number]) on 07/04/2020 2:42:49 PM Referred By: Ranulfo Schumacher Confirmed By:Lucien Martell
[2020-07-04] MEDS ORDERED: HYDROmorphone INJ 0.5 MG/0.5 ML SYR IV PRN (15:06)
[2020-07-04] MEDS ORDERED: ONDANSETRON INJ 2 MG/ML 2 ML VIAL IV STA (15:06)
[2020-07-04] MEDS ORDERED: ACETAMINOPHEN 1,000 MG/100 ML VIAL IV STA (15:06)
[2020-07-04 15:31] LABS: Basophils # (auto) 0.02 K/uL (0-0.2); Basophils % (auto) 0.2 %; Eosinophils # (auto) 0.17 K/uL (0-0.5); Hematocrit (blood only) 34.6 % (42-52); Hemoglobin 11.3 g/dL (14.0-18.0); Immature Granulocytes # (auto) 0.02 K/uL (0.00-0.02); Immature Granulocytes % (auto) 0.2 %; Lymphocytes # (auto) 1.53 K/uL (1.2-3.4); Lymphocytes % (auto) 18.2 %; Mean Corpuscular Hemoglobin 28.7 pg (25-34); Mean Corpuscular Hgb Conc 32.7 g/dL (32-36); Mean Corpuscular Volume 87.8 fL (80-100); Mean Platelet Volume 8.3 fL (7.4-10.4); Monocytes # (auto) 0.63 K/uL (0.11-0.59); Monocytes % (auto) 7.5 %; Neutrophils # (auto) 6.02 K/uL (1.4-6.5); Neutrophils % (auto) 71.9 %; Platelet Count 347 K/uL (130-400); RDW Coefficient of Variation 13.9 % (11.5-14.5); RDW Standard Deviation 44.3 fL (36.4-46.3); Red Blood Count 3.94 M/uL (4.7-6.1); White Blood Count 8.39 K/uL (4.8-10.8)
[2020-07-04 15:49] LABS: Alanine Aminotransferase 16 U/L (12-78); Albumin Level 3.2 gm/dl (3.4-5.0); Aspartate Aminotransferase 14 U/L (15-37); BUN Creatinine Ratio 10.5 (10-20); Blood Urea Nitrogen 14 mg/dl (7-18); Calcium 8.6 mg/dl (8.5-10.1); Carbon Dioxide 25 mmol/L (21-32); Chloride 107 mmol/L (98-107); Creatinine Clr Calc Pharmacy 37.2 ml/min; Est GFR (African American) 57.3; Est GFR (Non-African American) 49.4; Glucose 86 mg/dl (70-99); Lipase 131 U/L (73-393); Potassium 3.8 mmol/L (3.5-5.1); Sodium 139 mmol/L (136-145)
[2020-07-04 15:54] LABS: Albumin Globulin Ratio 0.9 (0.9-2); Alkaline Phosphatase 97 U/L (45-117); Bilirubin,Total 0.6 mg/dl (0.2-1); Creatine Kinase 47 U/L (39-308); Creatine Kinase MB < 1.0 ng/ml (0.5-3.6); Globulin 3.8 gm/dl (2.5-4.0); Troponin I < 0.015 ng/ml (0-0.045)
[2020-07-04 16:06] LABS: INR 5.3 (0.9-1.1); Prothrombin Time 51.3 Seconds (9.0-12.0)
[2020-07-04 16:10] LABS: Partial Thromboplastin Time 56.8 Seconds (21.0-31.0)
--- NOTE | 2020-07-04 16:53 | History & Physical Report ---
Date of Service July 04, 2020 Assessment & Plan (1) Status post reverse arthroplasty of left shoulder: This is an 80-year-old male with significant past medical history of pulmonary embolism on long-term oral anticoagulation, HTN, HLD, CKD stage III, history of lung cancer status post lobectomy, history of prostate cancer status post prostatectomy, STACEY who presents to ED secondary to recommendation of PCP secondary to left shoulder pain, poor p.o. intake and her intermittent confusion . S/P reverse total shoulder by Dr. Gaspar on 06/18 tolerated procedure well and had ortho follow up 07/03 and had stables removed continue sling schedule APAP 650mg QID; Tramadol 50mg q4h prn moderate pain consult PT/OT encourage oral intake gentle IVF 80cc/hr x 1 L obtain UA and mag level - does not appear infectious he is afebrile, wbc WNL, CXR clear unclear etiology of intermittent confusion - currently he is A&O x 3, possibly in setting of narcotics but has not taken in 3-4 days (2) Supratherapeutic INR: INR 5.3, no s/sx of bleeding hold warfarin repeat in a.m. home warfarin regimen was 2.5mg thursday and 5mg all other days follows [facility] pharmacy (3) At risk for dehydration due to poor fluid intake: gentle IVF 80cc/hr x 1 L repeat labs in a.m. (4) Bilateral pulmonary embolism: On warfarin therapy with current supratherapeutic INR Hold warfarin, no signs or symptoms of bleeding Repeat INR in a.m. (5) CKD (chronic kidney disease) stage 3, GFR 30-59 ml/min: bun/cr stable baseline cr 1.2-1.4 monitor (6) Vertigo: pt reports vertiginous sx taking meclizine tid with improvement sx occur with quick head movements and resolve within seconds of sitting still, no associated nausea he does have cerumen to R Ear canal consult PT for eval for BPPV as well as for s/p revere TSA (7) HTN (hypertension): Blood pressure elevated in ED, likely in setting of pain Continue Coreg and amlodipine DVT Ppx: none 2/2 to warfarin and supratherapeutic INR DNR Disposition: admit to [facility] possible d/c tomorrow if feeling improved and work up unremarkable Follow up: PCP Dr. Schumacher upon discharge Pt was seen and examined in collaboration with Dr. Buchanan, please see addendum History of Present Illness Chief Complaint: Referred to ED from PCP secondary to left shoulder pain, poor p.o. intake, intermittent confusion Primary Care Provider: Ranulfo Schumacher, DO This is an 80-year-old male with significant past medical history of pulmonary embolism on long-term oral anticoagulation, HTN, HLD, CKD stage III, history of lung cancer status post lobectomy, history of prostate cancer status post prostatectomy, STACEY who presents to ED secondary to recommendation of PCP secondary to left shoulder pain, poor p.o. intake and her intermittent confusion. Patient's granddaughter at bedside. Of significance patient recent hospitalized secondary to elective reverse total shoulder arthroplasty by Dr. Gaspar on 06/18/2020. He tolerated the procedure well and was recently seen in follow-up orthopedics on 07/03/2020. He states over the past 2 weeks he has not been eating or drinking well. Granddaughter confirms stating it is a piece of toast a day. He admits to vertigo symptoms with quick head movements that resolves within seconds of sitting still. He states this was present prior to his shoulder surgery but continues to persist. He feels it is the same. He denies any syncope. He denies any tinnitus or change in hearing, but does wear bilateral hearing aids. He denies any difficulty walking, but will walk close to the wall for assist. He further admits to having crampy abdominal discomfort that was resolved today after having a, "explosive bowel movement." He has been intermittently constipated secondary to narcotic use, but this has since resolved. Granddaughter also reports intermittent confusion, but currently feels cognitively he is at baseline now. He denies any recent fever, chills, sweats, lightheadedness, syncope, chest pain, shortness of breath, cough, nausea, vomiting, diarrhea, melena, hematochezia. He was seen by PCP today who was concerned because of lack of PO intake and confusion recommending hospitalization. His last oxycodone was 3-4 days ago and felt it wasn't doing anything. He has just been using tylenol for pain control. He does have a supratherapeutic INR but denies any bleeding In ED patient remained hemodynamically stable. Lab work notable for H&H 11.3 and 31.6, INR 5.3, BUN 14, creatinine 1.33. Chest x-ray negative for acute cardiopulmonary abnormality. In ED he received IV Zofran, IV acetaminophen and IV Dilaudid. Allergies Allergy/AdvReac Type Severity Reaction Status Date / Time No Known Allergies Allergy Verified 05/16/20 08:50 Home Medications Home Medications Medication Instructions Recorded Confirmed Type citalopram 20 mg PO QAM 08/31/18 07/04/20 History pantoprazole 40 mg PO QAM 08/31/18 07/04/20 History acetaminophen [Tylenol Extra 500 mg PO Q6H PRN 03/09/20 07/04/20 History Strength] carvedilol 6.25 mg PO QAM 03/09/20 07/04/20 History cholecalciferol (vitamin D3) 125 mcg PO HS 03/09/20 07/04/20 History [Vitamin D3] gabapentin 100 mg PO BID 03/09/20 07/04/20 History multivitamin 1 tab PO HS 03/09/20 07/04/20 History meclizine 12.5 mg PO TID PRN 03/12/20 07/04/20 History amlodipine 2.5 mg PO QAM 05/16/20 07/04/20 History oxycodone-acetaminophen 5 mg-325 1 tab PO Q6H PRN #20 tab 07/03/20 07/04/20 Rx mg tablet albuterol 90 mcg INHALATION Q6H PRN 07/04/20 07/04/20 History aspirin [Aspir-81] 81 mg PO DAILY 07/04/20 07/04/20 History warfarin 2.5 mg PO MO 07/04/20 07/04/20 History warfarin 5 mg PO SUTUWETHFRSA 07/04/20 07/04/20 History Past Med/Surg History Medical History Asthma Using albuterol inhaler TID now since PEs. Previously wasn't using inhaler at all. Cancer LUNG AND PROSTATE CANCER, both treated surgically Degenerative disc disease GERD (gastroesophageal reflux disease) HTN (hypertension) Migraine HX OF On anticoagulant therapy Osteoarthritis Pulmonary embolism hospitalized 03/12/2020-03/15/2020 [facility] w/ BL PE; unk etiology; on coumadin Surgical History History of adenoidectomy History of carpal tunnel release RT X 2 LEFT X 3 History of cataract surgery LEFT/RIGHT History of colonoscopy History of esophagogastroduodenoscopy (EGD) History of herniorrhaphy RT INGUINAL History of laminectomy LUMBAR History of lobectomy of lung RT MIDDLE LOBE History of prostatectomy History of tonsillectomy History of tooth extraction Status post reverse arthroplasty of left shoulder (~05/2020) Family History Father FHx: prostate cancer Grandfather (Paternal) FHx: prostate cancer Social History (Updated 07/04/20 @ 16:54 by Adriana Morales PA-C) Smoking Status: Former smoker Tobacco Type: Cigars Years Smoked: 50; Second Hand Exposure: No; Hx Alcohol Use: No Hx Substance Use: No Preferred Language: Bulgarian Communication Ability: Effective Qc Analyst Required: No Beliefs That Will Affect Care: None marital status: Current Living Situation: Spouse Feels Safe at Home: Yes Assistive Devices: Glasses Review of Systems Review of Systems: All systems reviewed & are unremarkable except as noted in HPI & below Physical Exam Physical Exam: Constitutional: WD/WN, male, vitals as above, NAD, sitting up in bed, pleasant, conversing easily Head: Normocephalic, Atraumatic Eyes: PERRL, conjunctivae normal, anicteric sclerae ENMT: Bilateral hearing assist device in place, external ear and nose normal, right external auditory canal mild cerumen impaction, oropharynx normal, Neck: trachea midline, no thyromegaly normal visual inspection Respiratory: normal respiratory effort, lungs clear to auscultation, no wheeze, rales, rhonchi. Normal insp/exp effort, no accessory muscle use Cardiovascular: RRR, no murmur, no edema Vessels: no JVD or carotid bruit Chest: normal inspection of chest Abdomen: normal bowel sounds, soft, nontender, no hepatosplenomegaly Musculoskeletal: no cyanosis or clubbing, extremities motor strength 5/5 except left upper extremity not tested given recent surgery. He does have left upper extremity sling in place, NVI distally Skin: no rashes, warm and dry normal turgor Neurologic: Vertigo not reproduced, PERRL, EOMI, accommodation nl, no face palsy, no dysarthria CN's II-XI intact bilaterally and moves all extremities Psychiatric: A+Ox3, dysthymic affect Lymphatic: no cervical or axillary lymphadenopathy : deferred Results & Data Results & Data ([facility]) Vital Signs (Past 12 Hours) Vital Signs Temp Pulse Pulse Resp BP BP Pulse Ox 07/04/20 16:34 78 16 141/79 H 95 07/04/20 15:47 78 20 149/81 H 97 07/04/20 15:46 78 17 149/81 H 98 07/04/20 14:53 98 07/04/20 13:46 37.5 C 86 20 135/80 98 Laboratory Results Short CBC 07/04/20 Range/Units 15:20 WBC 8.39 (4.8-10.8) K/uL Hgb 11.3 L (14.0-18.0) g/dL Hct 34.6 L (42-52) % Plt Count 347 (130-400) K/uL BMP 07/04/20 15:20 Sodium 139 Potassium 3.8 Chloride 107 Carbon Dioxide 25 BUN 14 Creatinine 1.33 Glucose 86 Calcium 8.6 Cardiac Enzymes 07/04/20 Range/Units 15:20 Total Creatine Kinase 47 (39-308) U/L CK-MB (CK-2) < 1.0 (0.5-3.6) ng/ml Troponin I < 0.015 (0-0.045) ng/ml Liver Function 07/04/20 Range/Units 15:20 Total Bilirubin 0.6 (0.2-1) mg/dl AST 14 L (15-37) U/L ALT 16 (12-78) U/L Alkaline Phosphatase 97 (45-117) U/L Albumin 3.2 L (3.4-5.0) gm/dl Diagnostic Findings CXR: IMPRESSION: 1. Chronic findings as above without acute process. 2. Skinfold projects of the left lung apex. No pneumothorax identified. Medications Administered Discontinued Medications Acetaminophen (Ofirmev) 1,000 mg in 100 mls @ 400 mls/hr IV NOW STA Stop: 07/04/20 15:20 Last Infusion: 07/04/20 16:01 Dose: 0 mls/hr Documented by: [id number] Admin: 07/04/20 15:46 Dose: 400 mls/hr Documented by: [id number] Ondansetron HCl (Ondansetron Inj 2 Mg/Ml 2 Ml Vial) 4 mg IV NOW STA Stop: 07/04/20 15:07 Last Admin: 07/04/20 15:46 Dose: 4 mg Documented by: [id number] ECG Rate (beats per minute): 80 Rhythm: normal sinus Additional Comments: poor R wave progression, T wave inversion lead III unchanged from EKG 02/2020 Code Status & VTE Plan Code Status DNR VTE Prophylaxis Plan VTE Prophylaxis will be ordered: No Reason for no VTE drug order: Contraindicated Supervising Physician Co-Signing Physician Notes Attending addendum: The patient was seen and examined in medical telemetry unit He is status post left shoulder arthroplasty and has not been eating or drinking much for the last 2 weeks Denies any problem with swallowing and mentions that he does not feel like e ating and/or drinking He was sent in from PCPs office for further evaluation of his problem On examination Sitting at the age of the bed without any apparent distress Hemodynamically stable with blood pressure on the upper side at 152/88 Chest-clear to auscultate bilaterally Heart-S1-S2, regular Abdomen-benign Extremities-negative for edema Admission labs, EKG and imaging studies reviewed Unremarkable labs Has anorexia with weakness status post left shoulder replacement We will hydrate with intravenous fluid and may need a nutrition consult and/or appetite stimulant Reviewed and agree with assessment and plan as outlined above by ERICKSON Lujan DR
[2020-07-04 18:07] LABS: Appearance Urine Clear (Clear); Bilirubin Urine Negative (Negative); Blood Urine Negative (Negative); Color Urine Yellow; Glucose Urine UA Negative (Negative); Ketones Urine Trace (Negative); Leukocyte Esterase Urine Negative (Negative); Nitrite Urine Negative (Negative); Protein Urine Negative (Negative); Specific Gravity Urine 1.014 (1.000-1.030); Urobilinogen Urine Negative (Negative)
[2020-07-04] MEDS ORDERED: ALUMINUM/MAGNESIUM SUSP 30 ML UDC PO PRN (18:45)
[2020-07-04] MEDS ORDERED: SODIUM CHLORIDE 0.9% 1000ML 1,000 ML IV SCH (18:45)
[2020-07-04] MEDS ORDERED: TRAMADOL HCL 50 MG TABLET PO PRN (18:45)
[2020-07-04] MEDS ORDERED: MAGNESIUM HYDROXIDE SUSP 30 ML UDC PO PRN (18:45)
[2020-07-04] MEDS ORDERED: POLYETHYLENE (MIRALAX) 17 GM PACK PO PRN (18:45)
[2020-07-04] MEDS ORDERED: ONDANSETRON INJ 2 MG/ML 2 ML VIAL IV PRN (18:45)
[2020-07-04] MEDS: ACETAMINOPHEN 325 MG TAB PO SCH (20:11)
[2020-07-04] MEDS: GABAPENTIN 100 MG CAP PO SCH (20:12)
[2020-07-04] MEDS ORDERED: MULTIVITAMIN TAB PO SCH (21:00)
[2020-07-04] MEDS ORDERED: CHOLECALCIFEROL 1,000 UNITS 25 MCG TAB PO SCH (21:00)
[2020-07-04] MEDS ORDERED: MoRPHine SULFATE 2 MG/ML CARP IV STA (23:43)
[2020-07-04] MEDS ORDERED: MoRPHine SULFATE 2 MG/ML CARP IV PRN (23:45)
[2020-07-05] MEDS: OXYCODONE HCL IR 5 MG TAB (IMMEDIATE RELEASE) PO PRN ×2 (04:01→11:45)
[2020-07-05] MEDS ORDERED: MoRPHine SULFATE 2 MG/ML CARP IV PRN (06:28)
[2020-07-05 07:00] LABS: Basophils # (auto) 0.02 K/uL (0-0.2); Basophils % (auto) 0.3 %; Eosinophils # (auto) 0.25 K/uL (0-0.5); Eosinophils % (auto) 3.8 %; Hematocrit (blood only) 31.9 % (42-52); Hemoglobin 10.5 g/dL (14.0-18.0); Immature Granulocytes # (auto) 0.01 K/uL (0.00-0.02); Immature Granulocytes % (auto) 0.2 %; Lymphocytes # (auto) 1.86 K/uL (1.2-3.4); Lymphocytes % (auto) 28.2 %; Mean Corpuscular Hemoglobin 28.9 pg (25-34); Mean Corpuscular Hgb Conc 32.9 g/dL (32-36); Mean Corpuscular Volume 87.9 fL (80-100); Mean Platelet Volume 8.5 fL (7.4-10.4); Monocytes # (auto) 0.68 K/uL (0.11-0.59); Monocytes % (auto) 10.3 %; Neutrophils # (auto) 3.78 K/uL (1.4-6.5); Neutrophils % (auto) 57.2 %; Platelet Count 320 K/uL (130-400); RDW Coefficient of Variation 13.8 % (11.5-14.5); RDW Standard Deviation 44.6 fL (36.4-46.3); Red Blood Count 3.63 M/uL (4.7-6.1)
[2020-07-05 07:20] LABS: INR 4.4 (0.9-1.1); Prothrombin Time 43.1 Seconds (9.0-12.0)
[2020-07-05 07:27] LABS: Albumin Level 2.9 gm/dl (3.4-5.0); BUN Creatinine Ratio 10.9 (10-20); Calcium 8.4 mg/dl (8.5-10.1); Creatinine Clr Calc Pharmacy 34.5 ml/min; Est GFR (African American) 57.3; Est GFR (Non-African American) 49.4; Potassium 3.7 mmol/L (3.5-5.1)
[2020-07-05 07:29] LABS: Albumin Globulin Ratio 0.9 (0.9-2); Bilirubin,Total 0.7 mg/dl (0.2-1); Globulin 3.4 gm/dl (2.5-4.0); Total Protein 6.3 gm/dl (6.4-8.2)
[2020-07-05] MEDS: GABAPENTIN 100 MG CAP PO SCH (08:49)
[2020-07-05] MEDS: MECLIZINE 12.5 MG TAB PO PRN ×2 (08:50→11:46)
[2020-07-05] MEDS: ACETAMINOPHEN 325 MG TAB PO SCH ×2 (08:51→14:01)
[2020-07-05] MEDS ORDERED: PANTOprazole 40 MG TAB PO SCH (09:00)
[2020-07-05] MEDS ORDERED: ASPIRIN 81 MG ECTAB PO SCH (09:00)
[2020-07-05] MEDS ORDERED: carvediloL 6.25 MG TAB PO SCH (09:00)
[2020-07-05] MEDS ORDERED: CITALOPRAM 20 MG TAB PO SCH (09:00)
[2020-07-05] MEDS ORDERED: AMLODIPINE BESYLATE 5 MG TAB PO SCH (09:00)
--- NOTE | 2020-07-05 16:18 | Hospitalist Progress Note ---
Date of Service July 05, 2020 Assessment & Plan (1) Status post reverse arthroplasty of left shoulder: This is an 80-year-old male with significant past medical history of pulmonary embolism on long-term oral anticoagulation, HTN, HLD, CKD stage III, history of lung cancer status post lobectomy, history of prostate cancer status post prostatectomy, STACEY who presents to ED secondary to recommendation of PCP secondary to left shoulder pain, poor p.o. intake and her intermittent confusion. S/P reverse total shoulder by Dr. Gaspar on 06/18 tolerated procedure well and had ortho follow up 07/03 and had stables removed Pain is only 3-4 out 10 Pt would like to get something stronger than the oxycodone like dilaudid (He said that his son had it before and said that it was effective for the pain ) Continue oxycodone for pain Continue outpatient therapy with PT fall precaution Follow up with ortho (2) Supratherapeutic INR: INR 5.3 on admission Continue to hold coumadin INR 4.4 today Continue home warfarin regimen was 2.5mg thursday and 5mg all other days Follow up with the coumadin clinic (3) At risk for dehydration due to poor fluid intake: Received gently hydration Pt was advised to increase po intake (4) Bilateral pulmonary embolism: Coumadin on hold due to elevated INR above 5 no signs or symptoms of bleeding INR 4.4 today Will resume coumadin at 2.5 mg Follow up with the coumadin clinic (5) CKD (chronic kidney disease) stage 3, GFR 30-59 ml/min: bun/cr stable baseline cr 1.2-1.4 monitor (6) Vertigo: Continue meclizine prn Pt was advised to take his time when standing from a sitting or supine position Fall precaution (7) HTN (hypertension): Continue Coreg and amlodipine Stable DVT Ppx: supratherapeutic INR [place] on hold CODE STATUS DNR Disposition: Discharge home today Admission and Anticipated Discharge Date Admission Date: July 04, 2020 Subjective Pt was seen and examined Sitting in chair with no distress He put his on speaker as well Pt said that he feels much better He said that his shoulder pain is only 3-4 out 10 he is very anxious to go home Denies any chest pain, palpitation, dizziness and SOB Physical Exam Physical Exam: General- No acute distress Head- atraumatic Eyes- PERRL, EOMI, ENT- oropharynx clear Neck- supple, no JVD Lungs- clear to auscultation Heart- regular rhythm; no murmur Abdomen- normal bowel sounds, soft, nontender Extremities- no calf tenderness, left shoulder tenderness, Sling in LUE , decrease ROM in Left shoulder Neuro- alert, oriented x 3; PERRL, EOMI; no facial palsy; no dysarthria Skin- warm & dry Results & Data Results & Data ([facility]) Vital Signs (Past 12 Hours) Vital Signs Temp Pulse Resp BP Pulse Ox 07/05/20 10:59 36.8 C 75 18 116/59 L 93 07/05/20 07:28 37 C 77 19 134/72 93 07/05/20 04:27 36.8 C 77 18 115/74 95
--- NOTE | 2020-07-06 18:37 | Emergency Department Note ---
History of Present Illness General Chief complaint: Shoulder Pain Stated complaint: SENT BY DR Jennifer ANDRES EATING,DRINKING, SHOULDER PAIN Time Seen by Provider: 07/04/20 13:51 Source: patient, RN notes reviewed and old records reviewed Mode of arrival: ambulatory Limitations: no limitations History of Present Illness Provider complaint: left shoulder pain Onset (ago): day(s) 7 Location: upper extremity and left Radiation: non-radiation Severity: moderate Pain Consistency: + intermittent Maximum Pain Intensity: 5 Current Pain Intensity: 5 Quality: + aching Relieved By: + immobilization Exacerbated By: + movement Associated symptoms: + confusion, + loss of appetite and + nausea/vomiting Treatments prior to arrival: none This is an 80-year-old male sent in by his primary care physician over concerns of the patient was altered at home. The patient has been having left shoulder pain ever since his surgery. He has been taking narcotic medication however thi s is only made him more confused. He stopped eating yesterday and there is concerns that the patient is dehydrated. His primary care physician sent him in for IV fluid. Patient describes the pain as a burning sensation is made worse by movement however immobilization makes the pain better. Home Medications Home Medications Medication Instructions Recorded Confirmed Type citalopram 20 mg PO QAM 08/31/18 07/04/20 History pantoprazole 40 mg PO QAM 08/31/18 07/04/20 History acetaminophen [Tylenol Extra 500 mg PO Q6H PRN 03/09/20 07/04/20 History Strength] carvedilol 6.25 mg PO QAM 03/09/20 07/04/20 History cholecalciferol (vitamin D3) 125 mcg PO HS 03/09/20 07/04/20 History [Vitamin D3] gabapentin 100 mg PO BID 03/09/20 07/04/20 History multivitamin 1 tab PO HS 03/09/20 07/04/20 History meclizine 12.5 mg PO TID PRN 03/12/20 07/04/20 History amlodipine 2.5 mg PO QAM 05/16/20 07/04/20 History oxycodone-acetaminophen 5 mg-325 1 tab PO Q6H PRN #20 tab 07/03/20 07/04/20 Rx mg tablet albuterol 90 mcg INHALATION Q6H PRN 07/04/20 07/04/20 History aspirin 81 mg PO DAILY 07/04/20 07/04/20 History warfarin 2.5 mg PO MO 07/04/20 07/04/20 History warfarin 5 mg PO [id number] 07/04/20 07/04/20 History Allergies Allergy/AdvReac Type Severity Reaction Status Date / Time No Known Allergies Allergy Verified 05/16/20 08:50 Past Med/Surg History Medical History Asthma Using albuterol inhaler TID now since PEs. Previously wasn't using inhaler at all. Cancer LUNG AND PROSTATE CANCER, both treated surgically Degenerative disc disease GERD (gastroesophageal reflux disease) HTN (hypertension) Migraine HX OF On anticoagulant therapy Osteoarthritis Pulmonary embolism hospitalized 03/12/2020-03/15/2020 [facility] w/ BL PE; unk etiology; on coumadin Surgical History History of adenoidectomy History of carpal tunnel release RT X 2 LEFT X 3 History of cataract surgery LEFT/RIGHT History of colonoscopy History of esophagogastroduodenoscopy (EGD) History of herniorrhaphy RT INGUINAL History of laminectomy LUMBAR History of lobectomy of lung RT MIDDLE LOBE History of prostatectomy History of tonsillectomy History of tooth extraction Status post reverse arthroplasty of left shoulder (~05/2020) Family History Father FHx: prostate cancer Grandfather (Paternal) FHx: prostate cancer Social History Smoking Status: Never smoker Tobacco Type: Cigars Years Smoked: 50; Second Hand Exposure: No; Hx Alcohol Use: No Hx Substance Use: No Preferred Language: Mauritian Communication Ability: Effective 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 GENERAL - 80-year-old male appearing stated age who is in no acute distress. Communicates well with provider and answers questions appropriately. SKIN - Without rashes. HEAD - NC/AT. EYES - PERRL with EOMI bilaterally. Sclera anicteric. Palpebral conjunctiva pink and moist with no injection noted. EARS - No deformities of external structures noted on gross examination bilaterally. No pain elicited with palpation of the tragus bilaterally. External auditory canals without discharge or otorrhea. Tympanic membranes pearly enciso without retraction or bulging. No fluid or purulent material visualized behind the TM. Handle of malleus, umbo, cone of light, pars tensa/flaccid all easily visualized. NOSE - Midline and without cyanosis. No epistaxis or purulent drainage noted. Septum midline without deviation or septal hematoma noted. MOUTH/OROPHARYNX - Without perioral cyanosis. Buccal mucosa pink and moist and without leukoplakia. Tongue midline with equal elevation of palate bilaterally. No tonsillar hypertrophy, erythema, or exudates noted. dentition noted. NECK - Neck with FROM. Supple to palpation. lymphadenopathy noted. No nuchal rigidity. LUNGS - Chest wall symmetric without accessory muscle use, intercostals retractions, or central cyanosis. Normal vesicular breath sounds CTA B/L. No wheezes, rales, or rhonchi appreciated. CARDIAC - RRR with S1/S2. No murmur, rubs, or gallops appreciated. ABDOMEN - Abdominal contour without pulsations or visible masses. BS normoactive all four quadrants. No tenderness, palpable masses, hepatosplenomegaly, or ascites noted. EXTREMITIES - No clubbing or peripheral cyanosis. No pretibial edema present. +3/5 radial, posterior tibial, and dorsalis pedis pulses palpated throughout. +5/5 strength noted in UE/LE bilaterally. NEUROLOGIC - Cranial nerves II through XII grossly intact. Sensory intact to light touch throughout. Patellar reflexes +2/4. PSYCH - A&Ox3 and cooperates fully with examiner. Pt is very pleasant and interacts well with examiner. Course Administered Medications Discontinued Medications Acetaminophen (Acetaminophen 325 Mg Tab) 650 mg PO QID [facility] Stop: 08/03/20 20:59 Last Admin: 07/05/20 14:01 Dose: 650 mg Documented by: [id number] Admin: 07/05/20 08:51 Dose: 650 mg Documented by: [id number] Admin: 07/04/20 20:11 Dose: 650 mg Documented by: [id number] Amlodipine Besylate (Amlodipine Besylate 5 Mg Tab) 2.5 mg PO QAM [facility] Stop: 08/04/20 08:59 Last Admin: 07/05/20 08:49 Dose: 2.5 mg Documented by: [id number] Aspirin (Aspirin 81 Mg Ectab) 81 mg PO DAILY [facility] Stop: 08/04/20 08:59 Last Admin: 07/05/20 08:51 Dose: 81 mg Documented by: [id number] Carvedilol (Carvedilol 6.25 Mg Tab) 6.25 mg PO QAM [facility] Stop: 08/04/20 08:59 Last Admin: 07/05/20 08:51 Dose: 6.25 mg Documented by: [id number] Citalopram Hydrobromide (Citalopram 20 Mg Tab) 20 mg PO QAM [facility] Stop: 08/04/20 08:59 Last Admin: 07/05/20 08:49 Dose: 20 mg Documented by: [id number] Gabapentin (Gabapentin 100 Mg Cap) 100 mg PO BID [facility] Stop: 08/03/20 20:59 Last Admin: 07/05/20 08:49 Dose: 100 mg Documented by: [id number] Admin: 07/04/20 20:12 Dose: 100 mg Documented by: [id number] Acetaminophen (Ofirmev) 1,000 mg in 100 mls @ 400 mls/hr IV NOW STA Stop: 07/04/20 15:20 Last Infusion: 07/04/20 16:01 Dose: 0 mls/hr Documented by: [id number] Admin: 07/04/20 15:46 Dose: 400 mls/hr Documented by: [id number] Sodium Chloride (Nss 1000ml) 1,000 mls @ 80 mls/hr IV .[id number] M Stop: 07/05/20 07:14 Last Infusion: 07/05/20 08:41 Dose: 0 mls/hr Documented by: [id number] Admin: 07/04/20 20:10 Dose: 80 mls/hr Documented by: [id number] Meclizine HCl (Meclizine 12.5 Mg Tab) 12.5 mg PO TID PRN PRN Reason: DIZZY Stop: 08/03/20 18:44 Last Admin: 07/05/20 11:46 Dose: 12.5 mg Documented by: [id number] Admin: 07/05/20 08:50 Dose: 12.5 mg Documented by: [id number] Morphine Sulfate (Morphine Sulfate 2 Mg/Ml Carp) 2 mg IV NOW STA Stop: 07/04/20 23:44 Last Admin: 07/05/20 00:08 Dose: 2 mg Documented by: [id number] Morphine Sulfate (Morphine Sulfate 2 Mg/Ml Carp) 2 mg IV Q4H PRN PRN Reason: Pain Stop: 07/18/20 23:44 Last Admin: 07/05/20 04:41 Dose: 2 mg Documented by: [id number] Multivitamins (Multivitamin Tab) 1 tab PO [facility] Stop: 08/03/20 20:59 Last Admin: 07/04/20 20:12 Dose: 1 tab Documented by: [id number] Ondansetron HCl (Ondansetron Inj 2 Mg/Ml 2 Ml Vial) 4 mg IV NOW STA Stop: 07/04/20 15:07 Last Admin: 07/04/20 15:46 Dose: 4 mg Documented by: [id number] Oxycodone HCl (Oxycodone Hcl Ir 5 Mg Tab (Immediate Release)) 5 - 10 mg PO QID PRN PRN Reason: Pain Stop: 07/18/20 23:43 Last Admin: 07/05/20 11:45 Dose: 10 mg Documented by: [id number] Admin: 07/05/20 04:01 Dose: 10 mg Documented by: [id number] Pantoprazole Sodium ([facility] 40 Mg Tab) [facility]: 08/04/20 08:59 Last Admin: 07/05/20 08:52 Dose: 40 mg Documented by: [id number] Tramadol HCl (Tramadol Hcl 50 Mg Tablet) 50 mg PO Q4H PRN PRN Reason: Pain Stop: 08/03/20 18:44 Last Admin: 07/04/20 20:25 Dose: 50 mg Documented by: [id number] Vitamin D (Cholecalciferol 1,000 Units 25 Mcg Tab) 5,000 units PO [facility] Stop: 08/03/20 20:59 Last Admin: 07/04/20 20:12 Dose: 5,000 units Documented by: [id number] Medical Decision Making Differential Diagnosis Infection, dehydration, metabolic abnormality, hypo/hyperglycemia, electrolyte disturbance, anemia, hypoxia, cardiac sources, intracerebral event, toxicologic, neurologic, as well as other pathologies. Medical Records Attestation: I reviewed the patient's medical records. Home Medications Current Medication List: was personally reviewed by me Laboratory Data Attestation: I reviewed the patient's lab results. Result diagrams: 07/05/20 06:32 07/05/20 06:32 Lab Results 07/04/20 07/04/20 07/04/20 Range/Units 15:20 15:20 15:20 WBC 8.39 (4.8-10.8) K/uL RBC 3.94 L (4.7-6.1) M/uL Hgb 11.3 L (14.0-18.0) g/dL Hct 34.6 L (42-52) % MCV 87.8 (80-100) fL MCH 28.7 (25-34) pg MCHC 32.7 (32-36) g/dL RDW Std Deviation 44.3 (36.4-46.3) fL RDW Coeff of Marely 13.9 (11.5-14.5) % Plt Count 347 (130-400) K/uL MPV 8.3 (7.4-10.4) fL Immature Gran % (Auto) 0.2 % Neut % (Auto) 71.9 % Lymph % (Auto) 18.2 % [place] % (Auto) 7.5 % Eos % (Auto) 2.0 % Baso % (Auto) 0.2 % Neut # (Auto) 6.02 (1.4-6.5) K/uL Lymph # (Auto) 1.53 (1.2-3.4) K/uL [place] # (Auto) 0.63 H (0.11-0.59) K/uL Eos # (Auto) 0.17 (0-0.5) K/uL Baso # (Auto) 0.02 (0-0.2) K/uL Immature Gran # (Auto) 0.02 (0.00-0.02) K/uL PT 51.3 H (9.0-12.0) Seconds INR 5.3 H (0.9-1.1) APTT 56.8 H* (21.0-31.0) Seconds PTT Ratio 2.0 Sodium 139 (136-145) mmol/L Potassium 3.8 (3.5-5.1) mmol/L Chloride 107 (98-107) mmol/L Carbon Dioxide 25 (21-32) mmol/L Anion Gap 6.0 (3-11) BUN 14 (7-18) mg/dl Creatinine 1.33 (0.6-1.4) mg/dl Est Cr Clr Drug Dosing 37.2 ml/min Est GFR ( Amer) 57.3 Est GFR (Non-Af Amer) 49.4 BUN/Creatinine Ratio 10.5 (10-20) Glucose 86 (70-99) mg/dl Calcium 8.6 (8.5-10.1) mg/dl Total Bilirubin 0.6 (0.2-1) mg/dl AST 14 L (15-37) U/L ALT 16 (12-78) U/L Alkaline Phosphatase 97 (45-117) U/L Total Creatine Kinase 47 (39-308) U/L CK-MB (CK-2) < 1.0 (0.5-3.6) ng/ml CK/CKMB % Calc TNP Troponin I < 0.015 (0-0.045) ng/ml Total Protein 7.0 (6.4-8.2) gm/dl Albumin 3.2 L (3.4-5.0) gm/dl Globulin 3.8 (2.5-4.0) gm/dl Albumin/Globulin Ratio 0.9 (0.9-2) Lipase 131 (73-393) U/L COVID-19 Eval Order COVID-19 PCR (Negative) 07/04/20 07/04/20 Range/Units 15:21 15:21 WBC (4.8-10.8) K/uL RBC (4.7-6.1) M/uL Hgb (14.0-18.0) g/dL Hct (42-52) % MCV (80-100) fL MCH (25-34) pg MCHC (32-36) g/dL RDW Std Deviation (36.4-46.3) fL RDW Coeff of Marely (11.5-14.5) % Plt Count (130-400) K/uL MPV (7.4-10.4) fL Immature Gran % (Auto) % Neut % (Auto) % Lymph % (Auto) % [place] % (Auto) % Eos % (Auto) % Baso % (Auto) % Neut # (Auto) (1.4-6.5) K/uL Lymph # (Auto) (1.2-3.4) K/uL [place] # (Auto) (0.11-0.59) K/uL Eos # (Auto) (0-0.5) K/uL Baso # (Auto) (0-0.2) K/uL Immature Gran # (Auto) (0.00-0.02) K/uL PT (9.0-12.0) Seconds INR (0.9-1.1) APTT (21.0-31.0) Seconds PTT Ratio Sodium (136-145) mmol/L Potassium (3.5-5.1) mmol/L Chloride (98-107) mmol/L Carbon Dioxide (21-32) mmol/L Anion Gap (3-11) BUN (7-18) mg/dl Creatinine (0.6-1.4) mg/dl Est Cr Clr Drug Dosing ml/min Est GFR ( Amer) Est GFR (Non-Af Amer) BUN/Creatinine Ratio (10-20) Glucose (70-99) mg/dl Calcium (8.5-10.1) mg/dl Total Bilirubin (0.2-1) mg/dl AST (15-37) U/L ALT (12-78) U/L Alkaline Phosphatase (45-117) U/L Total Creatine Kinase (39-308) U/L CK-MB (CK-2) (0.5-3.6) ng/ml CK/CKMB % Calc Troponin I (0-0.045) ng/ml Total Protein (6.4-8.2) gm/dl Albumin (3.4-5.0) gm/dl Globulin (2.5-4.0) gm/dl Albumin/Globulin Ratio (0.9-2) Lipase (73-393) U/L COVID-19 Eval Order Covid19 Done at [facility] COVID-19 PCR NEGATIVE (Negative) MDM Narrative This is a [facility] downtime chart. Patient was seen and evaluated as above in room C10. Review was performed of n ursing notes and vital signs. I did review pertinent previous visits and patient history. After obtaining a thorough history and physical examination the above work up was performed. This is an 80-year-old male sent in by his primary care physician over concerns of the patient has an altered mental status and has not been eating or drinking. Patient was given Dilaudid here for his pain. He does not have an elevation in his white blood cell count. I did discuss the case with the hospitalist service who did agree to admit the patient. An order was placed for continuous cardiac monitoring. The monitor shows a rate of 79 with Normal Sinus rhythm. The patient was evaluated during the global COVID-19 pandemic, and that diagnosis was suspected/considered upon their initial presentation. Their evaluation, treatment and testing was consistent with current guidelines for patients who present with complaints or symptoms that may be related to COVID- 19. Impression & Plan Status post reverse arthroplasty of left shoulder, Supratherapeutic INR, At risk for dehydration due to poor fluid intake, CKD (chronic kidney disease) stage 3, GFR 30-59 ml/min Discharge Plan Visit Data Chief Complaint: Shoulder Pain Stated Complaint: SENT BY DR - NOT EATING,DRINKING, SHOULDER PAIN ED Provider: Jair Encarnacion Discharge Problem: Status post reverse arthroplasty of left shoulder, Supratherapeutic INR, At risk for dehydration due to poor fluid intake, CKD (chronic kidney disease) stage 3, GFR 30-59 ml/min Patient Disposition: Admitted As Inpatient Discharge Instructions Interventions: ED Discharge Assessment Last Done: 07/04/20 18:15 Discharge Problem: CKD (chronic kidney disease) stage 3, GFR 30-59 ml/min Qualifiers: Chronic kidney disease stage 3 subtype: unspecified whether 3a or 3b Qualified Code(s): N18.30 - Chronic kidney disease, stage 3 unspecified
== END 2020-07-05 16:41 | disposition home or self-care (01) ==
LOC: ED 13:43 → 2N 13:43 → SUATTDRO 16:42 → 2N 18:15

== ENCOUNTER 2020-07-07 21:52 | Observation (INO) ==
[2020-07-07] MEDS ORDERED: HYDROmorphone INJ 0.5 MG/0.5 ML SYR IV STA (22:13)
[2020-07-07] MEDS ORDERED: ONDANSETRON INJ 2 MG/ML 2 ML VIAL IV STA (22:13)
[2020-07-07] MEDS ORDERED: SODIUM CHLORIDE 0.9% 500 ML IV SCH (22:15)
[2020-07-07 22:34] LABS: Basophils # (auto) 0.01 K/uL (0-0.2); Basophils % (auto) 0.2 %; Eosinophils # (auto) 0.24 K/uL (0-0.5); Eosinophils % (auto) 3.8 %; Hematocrit (blood only) 35.2 % (42-52); Hemoglobin 11.6 g/dL (14.0-18.0); Immature Granulocytes # (auto) 0.01 K/uL (0.00-0.02); Immature Granulocytes % (auto) 0.2 %; Lymphocytes # (auto) 1.64 K/uL (1.2-3.4); Lymphocytes % (auto) 25.7 %; Mean Corpuscular Hemoglobin 29.1 pg (25-34); Mean Corpuscular Volume 88.2 fL (80-100); Mean Platelet Volume 8.7 fL (7.4-10.4); Monocytes # (auto) 0.69 K/uL (0.11-0.59); Monocytes % (auto) 10.8 %; Neutrophils % (auto) 59.3 %; Platelet Count 331 K/uL (130-400); RDW Coefficient of Variation 13.9 % (11.5-14.5); RDW Standard Deviation 44.7 fL (36.4-46.3); Red Blood Count 3.99 M/uL (4.7-6.1); White Blood Count 6.39 K/uL (4.8-10.8)
[2020-07-07 22:45] LABS: INR 1.6 (0.9-1.1); Partial Thromboplastin Ratio 1.3; Partial Thromboplastin Time 36.3 Seconds (21.0-31.0); Prothrombin Time 16.8 Seconds (9.0-12.0)
[2020-07-07 22:50] LABS: Albumin Level 3.2 gm/dl (3.4-5.0); BUN Creatinine Ratio 12.6 (10-20); Calcium 9.1 mg/dl (8.5-10.1); Creatinine Clr Calc Pharmacy 36.4 ml/min; Est GFR (African American) 55.8; Est GFR (Non-African American) 48.1; Potassium 3.7 mmol/L (3.5-5.1)
[2020-07-07 22:53] LABS: Albumin Globulin Ratio 0.8 (0.9-2); Bilirubin,Total 0.4 mg/dl (0.2-1); Globulin 3.9 gm/dl (2.5-4.0); Total Protein 7.1 gm/dl (6.4-8.2)
[2020-07-07] MEDS ORDERED: IOVERSOL 100ml IV ONE (22:53)
--- NOTE | 2020-07-07 23:12 | Emergency Department Note ---
History of Present Illness General Chief complaint: Dehydration Stated complaint: DEHYDRATED,ABD PAIN Time Seen by Provider: 07/07/20 22:03 History of Present Illness Maximum Pain Intensity: 4 This 80-year-old presents to the ER complaining of feeling dehydrated with abdominal discomfort who recently had shoulder surgery Location: Abdomen Quality: Dehydrated Severity: Moderate Duration: Past few days Timin days ago Context: Symptoms got worse and patient came in Modifying factors: better with rest; worse with activity Patient states he is not drinking much. He has moved his bowels today. Patient denies chest pain, dyspnea, fevers, vomiting, diarrhea, urinary symptoms. Patient states he feels weak and fatigued. His is currently admitted. Home Medications Home Medications Medication Instructions Recorded Confirmed Type citalopram 20 mg PO QAM 08/31/18 07/07/20 History pantoprazole 40 mg PO QAM 08/31/18 07/07/20 History acetaminophen [Tylenol Extra 500 mg PO Q6H PRN 03/09/20 07/07/20 History Strength] carvedilol 6.25 mg PO QAM 03/09/20 07/07/20 History cholecalciferol (vitamin D3) 125 mcg PO HS 03/09/20 07/07/20 History [Vitamin D3] gabapentin 100 mg PO BID 03/09/20 07/07/20 History multivitamin 1 tab PO HS 03/09/20 07/07/20 History meclizine 12.5 mg PO TID PRN 03/12/20 07/07/20 History amlodipine 2.5 mg PO QAM 05/16/20 07/07/20 History oxycodone-acetaminophen 5 mg-325 1 tab PO Q6H PRN #20 tab 07/03/20 07/07/20 Rx mg tablet aspirin 81 mg PO DAILY 07/04/20 07/07/20 History warfarin 2.5 mg PO WK 07/04/20 07/07/20 History warfarin 5 mg PO 6XWK 07/04/20 07/07/20 History albuterol sulfate 1 - 2 puff INHALATION DIRECTED 07/07/20 07/07/20 History PRN Allergies Allergy/AdvReac Type Severity Reaction Status Date / Time No Known Allergies Allergy Verified 07/07/20 23:50 Past Med/Surg History Medical History Asthma Using albuterol inhaler TID now since PEs. Previously wasn't using inhaler at all. Cancer LUNG AND PROSTATE CANCER, both treated surgically Degenerative disc disease GERD (gastroesophageal reflux disease) HTN (hypertension) Migraine HX OF On anticoagulant therapy Osteoarthritis Pulmonary embolism hospitalized 03/12/2020-03/15/2020 [facility] w/ BL PE; unk etiology; on coumadin Surgical History History of adenoidectomy History of carpal tunnel release RT X 2 LEFT X 3 History of cataract surgery LEFT/RIGHT History of colonoscopy History of esophagogastroduodenoscopy (EGD) History of herniorrhaphy RT INGUINAL History of laminectomy LUMBAR History of lobectomy of lung RT MIDDLE LOBE History of prostatectomy History of tonsillectomy History of tooth extraction Status post reverse arthroplasty of left shoulder (~05/2020) Family History Father FHx: prostate cancer Grandfather (Paternal) FHx: prostate cancer Social History Smoking Status: Former smoker Tobacco Type: Cigars Second Hand Exposure: No; Hx Alcohol Use: No Hx Substance Use: No Preferred Language: Sinhala Communication Ability: Effective Animal Pathologist Required: No Beliefs That Will Affect Care: None marital status: Current Living Situation: Spouse Feels Safe at Home: Yes Assistive Devices: Brace/Splint/Immobilizer Review of Systems A total of 10 systems reviewed and were otherwise negative Physical Exam Vital Signs Vital Signs - 24 hr 07/07/20 21:52 07/07/20 21:55 07/08/20 01:00 Temperature 37.1 C Temperature Source Oral Pulse Rate 83 Pulse Rhythm Regular Pulse Strength Normal Respiratory Rate 18 Respiratory Effort / Characteristics Non-Labored Spontaneous Respiratory Depth Normal Respiratory Pattern Regular Blood Pressure 107/76 Blood Pressure [Right Arm] 166/96 H 126/82 Blood Pressure Mean 86 Blood Pressure Mean [Right Arm] 119 96 Blood Pressure Position Sitting Blood Pressure Position [Right Arm] Sitting Pulse Oximetry 95 Oxygen Delivery Method Room Air Sepsis Recent Fever Within 48 Hours No Sepsis New/Unexplained Change in Mental Status No Sepsis Action Taken by Nursing No Action Required VITALS: Vitals are noted on the nurse's note and reviewed by myself. Vital signs stable. GENERAL: Pleasant elderly male, in no acute distress, nondiaphoretic, well- developed well-nourished. SKIN: Capillary reflex less than 2 seconds. HEENT: Normocephalic. PERRLA. EOMI. Nares patent. Mucous membranes mildly dry. Neck is supple without nuchal rigidity. HEART: Regular rate and rhythm LUNGS: Clear to auscultation bilaterally without wheezes, rales or rhonchi. No retractions or accessory muscle use. ABDOMEN: Positive bowel sounds x 4. Normal tympanic percussion. Soft, tender to palpation lower abdomen, without masses or organomegaly. Griffiths sign negative. No guarding or rebound tenderness. No CVA tenderness MUSCULOSKELETAL: No gross musculoskeletal defects. NEURO: Patient was alert and oriented to person place and time. No focal neurological deficits. Course Administered Medications Discontinued Medications Hydromorphone HCl (Hydromorphone Inj 0.5 Mg/0.5 Ml Syr) 0.25 mg IV NOW STA Stop: 07/07/20 22:14 Last Admin: 07/07/20 22:31 Dose: 0.25 mg Documented by: [id number] Hydromorphone HCl (Hydromorphone Inj 0.5 Mg/0.5 Ml Syr) 0.25 mg IV NOW STA Stop: 07/08/20 00:21 Last Admin: 07/08/20 00:27 Dose: 0.25 mg Documented by: [id number] Sodium Chloride (Nss) 500 mls @ 999 mls/hr IV .Q31M ROSA M Stop: 07/07/20 22:45 Last Infusion: 07/07/20 23:05 Dose: 0 mls/hr Documented by: [id number] Admin: 07/07/20 22:31 Dose: 999 mls/hr Documented by: [id number] Ioversol (Ioversol 100ml) 94 ml IV ONCE ONE Stop: 07/07/20 22:54 Last Admin: 07/07/20 22:53 Dose: 1 ml Documented by: [id number] Ondansetron HCl (Ondansetron Inj 2 Mg/Ml 2 Ml Vial) 4 mg IV NOW STA Stop: 07/07/20 22:14 Last Admin: 07/07/20 22:31 Dose: 4 mg Documented by: [id number] Medical Decision Making Medical Records Attestation: I reviewed the patient's medical records. Home Medications Current Medication List: was personally reviewed by me Laboratory Data Attestation: I reviewed the patient's lab results. Result diagrams: 07/07/20 22:25 07/07/20 22:25 Lab Results 07/07/20 07/07/20 07/07/20 Range/Units 22:25 22:25 22:25 WBC 6.39 (4.8-10.8) K/uL RBC 3.99 L (4.7-6.1) M/uL Hgb 11.6 L (14.0-18.0) g/dL Hct 35.2 L (42-52) % MCV 88.2 (80-100) fL MCH 29.1 (25-34) pg MCHC 33.0 (32-36) g/dL RDW Std Deviation 44.7 (36.4-46.3) fL RDW Coeff of Mare[place] 13.9 (11.5-14.5) % Plt Count 331 (130-400) K/uL MPV 8.7 (7.4-10.4) fL Immature Gran % (Auto) 0.2 % Neut % (Auto) 59.3 % Lymph % (Auto) 25.7 % [place] % (Auto) 10.8 % Eos % (Auto) 3.8 % Baso % (Auto) 0.2 % Neut # (Auto) 3.80 (1.4-6.5) K/uL Lymph # (Auto) 1.64 (1.2-3.4) K/uL [place] # (Auto) 0.69 H (0.11-0.59) K/uL Eos # (Auto) 0.24 (0-0.5) K/uL Baso # (Auto) 0.01 (0-0.2) K/uL Immature Gran # (Auto) 0.01 (0.00-0.02) K/uL PT 16.8 H (9.0-12.0) Seconds INR 1.6 H (0.9-1.1) APTT 36.3 H (21.0-31.0) Seconds PTT Ratio 1.3 Sodium 139 (136-145) mmol/L Potassium 3.7 (3.5-5.1) mmol/L Chloride 107 (98-107) mmol/L Carbon Dioxide 26 (21-32) mmol/L Anion Gap 6.0 (3-11) BUN 17 (7-18) mg/dl Creatinine 1.36 (0.6-1.4) mg/dl Est Cr Clr Drug Dosing 36.4 ml/min Est GFR ( Amer) 55.8 Est GFR (Non-Af Amer) 48.1 BUN/Creatinine Ratio 12.6 (10-20) Glucose 123 H (70-99) mg/dl Calcium 9.1 (8.5-10.1) mg/dl Magnesium 2.0 (1.8-2.4) mg/dl Total Bilirubin 0.4 (0.2-1) mg/dl AST 20 (15-37) U/L ALT 21 (12-78) U/L Alkaline Phosphatase 109 (45-117) U/L Total Protein 7.1 (6.4-8.2) gm/dl Albumin 3.2 L (3.4-5.0) gm/dl Globulin 3.9 (2.5-4.0) gm/dl Albumin/Globulin Ratio 0.8 L (0.9-2) Lipase 204 (73-393) U/L Urine Color Urine Appearance (Clear) Urine pH (4.5-7.5) Ur Specific [place] (1.000-1.030) Urine Protein (Negative) Urine Glucose (UA) (Negative) Urine Ketones (Negative) Urine Blood (Negative) Urine Nitrite (Negative) Urine Bilirubin (Negative) Urine Urobilinogen (Negative) Ur Leukocyte Esterase (Negative) 07/07/20 Range/Units 23:35 WBC (4.8-10.8) K/uL RBC (4.7-6.1) M/uL Hgb (14.0-18.0) g/dL Hct (42-52) % MCV (80-100) fL MCH (25-34) pg MCHC (32-36) g/dL RDW Std Deviation (36.4-46.3) fL RDW Coeff of [place] (11.5-14.5) % Plt Count (130-400) K/uL MPV (7.4-10.4) fL Immature Gran % (Auto) % Neut % (Auto) % Lymph % (Auto) % [place] % (Auto) % Eos % (Auto) % Baso % (Auto) % Neut # (Auto) (1.4-6.5) K/uL Lymph # (Auto) (1.2-3.4) K/uL [place] # (Auto) (0.11-0.59) K/uL Eos # (Auto) (0-0.5) K/uL Baso # (Auto) (0-0.2) K/uL Immature Gran # (Auto) (0.00-0.02) K/uL PT (9.0-12.0) Seconds INR (0.9-1.1) APTT (21.0-31.0) Seconds PTT Ratio Sodium (136-145) mmol/L Potassium (3.5-5.1) mmol/L Chloride (98-107) mmol/L Carbon Dioxide (21-32) mmol/L Anion Gap (3-11) BUN (7-18) mg/dl Creatinine (0.6-1.4) mg/dl Est Cr Clr Drug Dosing ml/min Est GFR ( Amer) Est GFR (Non-Af Amer) BUN/Creatinine Ratio (10-20) Glucose (70-99) mg/dl Calcium (8.5-10.1) mg/dl Magnesium (1.8-2.4) mg/dl Total Bilirubin (0.2-1) mg/dl AST (15-37) U/L ALT (12-78) U/L Alkaline Phosphatase (45-117) U/L Total Protein (6.4-8.2) gm/dl Albumin (3.4-5.0) gm/dl Globulin (2.5-4.0) gm/dl Albumin/Globulin Ratio (0.9-2) Lipase (73-393) U/L Urine Color Yellow Urine Appearance Clear (Clear) Urine pH 7.0 (4.5-7.5) Ur Specific [place] 1.022 (1.000-1.030) Urine Protein Negative (Negative) Urine Glucose (UA) Negative (Negative) Urine Ketones Negative (Negative) Urine Blood Negative (Negative) Urine Nitrite Negative (Negative) Urine Bilirubin Negative (Negative) Urine Urobilinogen Negative (Negative) Ur Leukocyte Esterase Negative (Negative) Imaging Data Attestation: I personally reviewed and interpreted this imaging study as follows: MDM Narrative Prior records/ancillary studies reviewed and summarized above. Nursing notes reviewed. Additional history obtained from family. The patient's history was concerning for fatigue, dehydration and abdominal pain. Differential diagnosis: Etiologies such as metabolic, infection, hypo/hyperglycemia, electrolyte abnormalities, cardiac sources, intracerebral event, toxicologic, neurologic, as well as others were entertained. Physical examination: As above. ER treatment provided: IV Lock An order was placed for continuous cardiac monitoring. The monitor shows a rate of 60-100 with a sinus rhythm. IV fluids, Dilaudid, Zofran On reassessment the patient felt better. Diagnostics interpretation by me: The labs revealed mild anemia, subtherapeutic INR. Glucose 123 Imaging studies: CT ABDOMEN & PELVIS With Contrast: No small bowel obstruction. No free air. No free fluid. Small fat-containing umbilical hernia. Nonspecific 12 mm hypodense lesion in the right hepatic lobe. Recommend nonurgent multiphase CT versus MRI of the liver for further evaluation. Bilateral simple cysts in both kidneys. Contrast within the urinary collecting system prevents exclusion of small stones. Multilevel lumbar spondylosis and spondylolisthesis. Radiologist: Lion Marsh MD Consultation: A consultation was placed with the hospitalist, Dr Shrestha. The case was discuss ed and diagnostics were reviewed. The patient was evaluated in the ER for further treatment. Exam and history seem consistent with dehydration abdominal discomfort with recent surgery. Patient still quite weak. Medicine was consulted. He will be evaluated for admission. By the evaluation outlined above emergent etiologies such as infection, electrolyte abnormalities, cardiac sources, intracerebral event, toxologic, neurologic, abnormalities blood glucose, metabolic, as well as others were deemed relatively unlikely. The pt informed about the findings as listed above. All questions were answered and pleased with the treatment. The chart was completed utilizing [employer] voice recognition software. Grammatical errors, random word insertions, pronoun errors, and incomplete sentences are an occassional consequence of this system due to software limitations, ambient noise, and hardware issues. Any formal questions or concerns about the content, text, or information contained within the body of this dictation should be directly addressed to the physician medical assistant per diem for clarification. Impression & Plan Dehydration, Abdominal pain Discharge Plan Visit Data Chief Complaint: Dehydration Stated Complaint: DEHYDRATED,ABD PAIN ED Provider: Maciejczyk,Db F ED Midlevel Provider: Sana Cano Discharge Problem: Dehydration, Abdominal pain Patient Disposition: Admitted As Inpatient Condition: Fair Forms Stand Alone Forms: My [facility] [employer] Prescriptions Prescriptions: No Action oxycodone-acetaminophen [Percocet] 5-325 mg tablet 1 tab PO Q6H PRN (Reason: pain) Qty: 20 RF: 0 carvedilol 6.25 mg Tablet 6.25 mg PO QAM RF: 0 gabapentin 100 mg Capsule 100 mg PO BID RF: 0 multivitamin Tablet 1 tab PO HS RF: 0 cholecalciferol (vitamin D3) [Vitamin D3] 125 mcg (5,000 unit) Tablet 125 mcg PO HS RF: 0 acetaminophen [Tylenol Extra Strength] 500 mg Tablet 500 mg PO Q6H PRN (Reason: Pain) RF: 0 amlodipine 2.5 mg tablet 2.5 mg PO QAM RF: 0 meclizine 12.5 mg tablet 12.5 mg PO TID PRN (Reason: DIZZY) RF: 0 albuterol sulfate 90 mcg/actuation HFA aerosol inhaler 1 - 2 puff INHALATION DIRECTED PRN (Reason: Shortness Of Breath Or Wheezing) RF: 0 citalopram 20 mg tablet 20 mg PO QAM RF: 0 pantoprazole 40 mg tablet,delayed release (DR/EC) 40 mg PO QAM RF: 0 aspirin 81 mg Tablet,Delayed Release (Dr/Ec) 81 mg PO DAILY RF: 0 warfarin 5 mg Tablet 2.5 mg PO WK RF: 0 warfarin 5 mg tablet 5 mg PO 6XWK RF: 0 Referrals Referrals: Ranulfo Schumacher DO [Primary Care Provider] -
[2020-07-07 23:43] LABS: Appearance Urine Clear (Clear); Bilirubin Urine Negative (Negative); Blood Urine Negative (Negative); Color Urine Yellow; Glucose Urine UA Negative (Negative); Ketones Urine Negative (Negative); Leukocyte Esterase Urine Negative (Negative); Nitrite Urine Negative (Negative); Protein Urine Negative (Negative); Specific Gravity Urine 1.022 (1.000-1.030); Urobilinogen Urine Negative (Negative)
[2020-07-08] MEDS ORDERED: HYDROmorphone INJ 0.5 MG/0.5 ML SYR IV STA (00:20)
--- NOTE | 2020-07-08 01:06 | Emergency Department Note ---
ED Visit Note The patient was seen and examined with Melodie Cano PA-C. I agree with the history, physical and findings. Please see the note for disposition and details. .
[2020-07-08] MEDS ORDERED: WARFARIN SOD 5 MG TAB PO ONE (02:16)
--- NOTE | 2020-07-08 02:17 | History & Physical Report ---
Date of Service July 08, 2020 Assessment & Plan (1) Abdominal pain: Possibly secondary to functional constipation Resolved after bowel movement at the ER. 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 IV heparin-Coumadin bridge tx DNR Text document was generated using [employer] voice recognition software. It may contain grammatical or spelling errors. Kindly contact undersigned for clarification of any documentation item in question. History of Present Illness Chief Complaint: Dehydration, abdominal pain Primary Care Provider: Ranulfo Schumacher DO History obtained from patient and records. Medical history significant for recurrent PE on Coumadin, hypertension, hyperlipidemia, lung cancer status post surgery, prostate cancer status post crespo rgery, chronic anemia (baseline hemoglobin 10-11), anxiety disorder as per records, recent left shoulder surgery, past tobacco abuse. Last confinement 3 days ago for uncontrolled left shoulder pain postop and and poor p.o. intake, intermittent confusion. INR supratherapeutic during confinement. Confusion attributed to possible narcotics. At home the last 2 days, patient appetite not too good, not drinking as much. Constipation at home, patient denies narcotic intake. No chest pain, no shortness of breath, no headache. Patient feeling weak and fatigued. Denies depression. Patient brought to the ER by family. Belly pain much improved after small bowel movement at the ER. Patient uncomfortable going home. 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 Allergies Allergy/AdvReac Type Severity Reaction Status Date / Time No Known Allergies Allergy Verified 07/07/20 23:50 Home Medications Home Medications Medication Instructions Recorded Confirmed Type citalopram 20 mg PO QAM 08/31/18 07/07/20 History pantoprazole 40 mg PO QAM 08/31/18 07/07/20 History acetaminophen [Tylenol Extra 500 mg PO Q6H PRN 03/09/20 07/07/20 History Strength] carvedilol 6.25 mg PO QAM 03/09/20 07/07/20 History cholecalciferol (vitamin D3) 125 mcg PO HS 03/09/20 07/07/20 History [Vitamin D3] gabapentin 100 mg PO BID 03/09/20 07/07/20 History multivitamin 1 tab PO HS 03/09/20 07/07/20 History meclizine 12.5 mg PO TID PRN 03/12/20 07/07/20 History amlodipine 2.5 mg PO QAM 05/16/20 07/07/20 History oxycodone-acetaminophen 5 mg-325 1 tab PO Q6H PRN #20 tab 07/03/20 07/07/20 Rx mg tablet aspirin 81 mg PO DAILY 07/04/20 07/07/20 History warfarin 2.5 mg PO WK 07/04/20 07/07/20 History warfarin 5 mg PO 6XWK 07/04/20 07/07/20 History albuterol sulfate 1 - 2 puff INHALATION DIRECTED 07/07/20 07/07/20 History PRN Past Med/Surg History Medical History Asthma Using albuterol inhaler TID now since PEs. Previously wasn't using inhaler at all. Cancer LUNG AND PROSTATE CANCER, both treated surgically Degenerative disc disease GERD (gastroesophageal reflux disease) HTN (hypertension) Migraine HX OF On anticoagulant therapy Osteoarthritis Pulmonary embolism hospitalized 03/12/2020-03/15/2020 [facility] w/ BL PE; unk etiology; on coumadin Surgical History History of adenoidectomy History of carpal tunnel release RT X 2 LEFT X 3 History of cataract surgery LEFT/RIGHT History of colonoscopy History of esophagogastroduodenoscopy (EGD) History of herniorrhaphy RT INGUINAL History of laminectomy LUMBAR History of lobectomy of lung RT MIDDLE LOBE History of prostatectomy History of tonsillectomy History of tooth extraction Status post reverse arthroplasty of left shoulder (~05/2020) Family History Father FHx: prostate cancer Grandfather (Paternal) FHx: prostate cancer Social History Smoking Status: Former smoker Tobacco Type: Cigars Second Hand Exposure: No; Do You Dip or Chew Tobacco: No; Tobacco Cessation Education Requested by Patient: No Hx Alcohol Use: No Hx Substance Use: No Preferred Language: Honduran Communication Ability: Effective Preventive Maintenance Coordinator Required: No Beliefs That Will Affect Care: None marital status: Current Living Situation: Spouse Feels Safe at Home: Yes Safety Concerns: Feels Safe At This Time Assistive Devices: Glasses Review of Systems Review of Systems: As per HPI, all 10 systems reviewed, all other ROS negative Physical Exam Physical Exam: GENERAL: Comfortable, pleasant, no respiratory distress SKIN: Pallor , warm HEENT: Partial alopecia, pale palpebral conjunctivae, no ptosis, dry buccal mucosa NECK : Supple, no tenderness CHEST : Decreased breath sounds , no tenderness HEART : RRR, no obvious murmurs ABDOMEN: Some distention, nontender EXTREMITIES : No LE swelling/tenderness, sling over left upper extremity NEUROLOGIC : Coherent, no facial asymmetry, no other gross focality Results & Data Results & Data ([facility]) Vital Signs (Past 12 Hours) Vital Signs Temp Pulse Resp BP BP Pulse Ox 07/08/20 01:00 126/82 07/07/20 21:55 37.1 C 83 18 107/76 95 07/07/20 21:52 166/96 H Laboratory Results Laboratory Results WBC 6.39 K/uL (4.8-10.8) 07/07/20 22:25 RBC 3.99 M/uL (4.7-6.1) L 07/07/20 22:25 Hgb 11.6 g/dL (14.0-18.0) L 07/07/20 22:25 Hct 35.2 % (42-52) L 07/07/20 22:25 MCV 88.2 fL (80-100) 07/07/20 22:25 MCH 29.1 pg (25-34) 07/07/20 22:25 MCHC 33.0 g/dL (32-36) 07/07/20 22:25 RDW Std Deviation 44.7 fL (36.4-46.3) 07/07/20 22:25 RDW Coeff of Marely 13.9 % (11.5-14.5) 07/07/20:25 Plt Count 331 K/uL (130-400) 07/07/20: MPV 8.7 fL (7.4-10.4) 07/07/20 22:25 Immature Gran % (Auto) 0.2 % 07/07/20 22:25 Neut % (Auto) 59.3 % 07/07/20: Lymph % (Auto) 25.7 % 07/07/20: [place] % (Auto) 10.8 % 07/07/20: Eos % (Auto) 3.8 % 07/07/20: Baso % (Auto) 0.2 % 07/07/20: Neut # (Auto) 3.80 K/uL (1.4-6.5) 07/07/20: Lymph # (Auto) 1.64 K/uL (1.2-3.4) 07/07/20: [place] # (Auto) 0.69 K/uL (0.11-0.59) H 07/07/20:25 Eos # (Auto) 0.24 K/uL (0-0.5) 07/07/20: Baso # (Auto) 0.01 K/uL (0-0.2) 07/07/20: Immature Gran # (Auto) 0.01 K/uL (0.00-0.02) 07/07/20 22:25 PT 16.8 Seconds (9.0-12.0) H 07/07/20:25 INR 1.6 (0.9-1.1) H 07/07/20 22:25 APTT 36.3 Seconds (21.0-31.0) H 07/07/20 22:25 PTT Ratio 1.3 07/07/20:25 Sodium 139 mmol/L (136-145) 07/07/20:25 Potassium 3.7 mmol/L (3.5-5.1) 07/07/20:25 Chloride 107 mmol/L (98-107) 07/07/20: Carbon Dioxide 26 mmol/L (21-32) 07/07/20:25 Anion Gap 6.0 (3-11) 07/07/20 22:25 BUN 17 mg/dl (7-18) 07/07/20 22:25 Creatinine 1.36 mg/dl (0.6-1.4) 07/07/20 22:25 Est Cr Clr Drug Dosing 36.4 ml/min 07/07/20 22:25 Est GFR ( Amer) 55.8 07/07/20 22:25 Est GFR (Non-Af Amer) 48.1 07/07/20 22:25 BUN/Creatinine Ratio 12.6 (-20) 07/07/20 22:25 Glucose 123 mg/dl (70-99) H 07/07/20 22:25 Calcium 9.1 mg/dl (8.5-10.1) 07/07/20 22:25 Magnesium 2.0 mg/dl (1.8-2.4) 07/07/20 22:25 Total Bilirubin 0.4 mg/dl (0.2-1) 07/07/20 22:25 AST 20 U/L (15-37) 07/07/20 22:25 ALT 21 U/L (12-78) 07/07/20 22:25 Alkaline Phosphatase 109 U/L (45-117) 07/07/20 22:25 Total Protein 7.1 gm/dl (6.4-8.2) 07/07/20 22:25 Albumin 3.2 gm/dl (3.4-5.0) L 07/07/20 22:25 Globulin 3.9 gm/dl (2.5-4.0) 07/07/20 22:25 Albumin/Globulin Ratio 0.8 (0.9-2) L 07/07/20 22:25 Lipase 204 U/L (73-393) 07/07/20 22:25 Urine Color Yellow 07/07/20 23:35 Urine Appearance Clear (Clear) 07/07/20 23:35 Urine pH 7.0 (4.5-7.5) 07/07/20 23:35 Ur Specific [place] 1.022 (1.000-1.030) 07/07/20 23:35 Urine Protein Negative (Negative) 07/07/20 23:35 Urine Glucose (UA) Negative (Negative) 07/07/20 23:35 Urine Ketones Negative (Negative) 07/07/20 23:35 Urine Blood Negative (Negative) 07/07/20 23:35 Urine Nitrite Negative (Negative) 07/07/20 23:35 Urine Bilirubin Negative (Negative) 07/07/20 23:35 Urine Urobilinogen Negative (Negative) 07/07/20 23:35 Ur Leukocyte Esterase Negative (Negative) 07/07/20 23:[address] abdomen pelvis initial read: No bowel obstruction. No free air. No free fluid. Small fat-containing umbilical hernia. Hypodense lesion right hepatic lobe. Recommend nonemergent multiphase CT versus MRI of liver for further evaluation. Kidney cyst. Lumbar spondylosis and spondylolisthesis.
[2020-07-08] MEDS ORDERED: Heparin IV Low Dose *NO* Bolus IV STA (02:19)
[2020-07-08] MEDS: HEPARIN SODIUM/DEXTROSE 25,000 UNITS/500 ML BAG IV SCH (02:58)
[2020-07-08] MEDS ORDERED: ACETAMINOPHEN 325 MG TAB PO PRN (04:23)
[2020-07-08] MEDS ORDERED: MECLIZINE 12.5 MG TAB PO PRN (04:23)
[2020-07-08] MEDS ORDERED: POLYETHYLENE (MIRALAX) 17 GM PACK PO PRN (04:23)
[2020-07-08] MEDS ORDERED: ACETAMINOPHEN 500 MG TAB PO PRN (04:23)
[2020-07-08] MEDS ORDERED: POTASSIUM CHLORIDE 40 MEQ in SODIUM CHLORIDE 0.9% 1000ML 1,000 ML IV ONE (04:30)
[2020-07-08] MEDS: OXYCODONE/ACETAMINOPHEN 5mg/325mg TAB PO PRN ×2 (04:43→19:38)
[2020-07-08] MEDS: DOCUSATE SODIUM/SENNA 50/8.6MG TAB PO SCH ×3 (05:57→20:54)
[2020-07-08] MEDS: CITALOPRAM 20 MG TAB PO SCH (08:42)
[2020-07-08] MEDS: PANTOprazole 40 MG TAB PO SCH (08:42)
[2020-07-08] MEDS: AMLODIPINE BESYLATE 5 MG TAB PO SCH (08:42)
[2020-07-08] MEDS: GABAPENTIN 100 MG CAP PO SCH ×2 (08:42→20:54)
[2020-07-08] MEDS: carvediloL 6.25 MG TAB PO SCH (08:43)
[2020-07-08] MEDS: ASPIRIN 81 MG ECTAB PO SCH (08:43)
--- NOTE | 2020-07-08 08:51 | CT Scan Report ---
CT SCAN OF THE ABDOMEN AND PELVIS WITH IV CONTRAST CLINICAL HISTORY: Lower abdominal pain. COMPARISON STUDY: Chest CT dated 09/22/2016. TECHNIQUE: Following the IV administration of 93 cc of Optiray 320, CT scan of the abdomen and pelvi s is performed from the lung bases to the proximal femora. Images are reviewed in the axial, sagittal , and coronal planes. Exam is performed in a slightly delayed phase of enhancement of the IV came apa rt during the first contrast injection attempt. A dose lowering technique was utilized adhering to th e principles of ALARA. There is streak artifact from the left arm which could not be elevated above t he abdomen. CT DOSE: 550.66 mGy.cm FINDINGS: Lung bases: The heart is mildly enlarged and without pericardial effusion. The lung bases are clear n oting bibasilar scarring/atelectasis. There is a small to moderate hiatal hernia. Liver: The contrast-enhanced liver is normal in size, contour, and attenuation. There is no intrahepa tic biliary ductal dilatation. The hepatic veins and portal veins are patent. A 1.8 cm low-attenuatio n lesion in segment Tobias is seen on image #77. Although incompletely characterized, this demonstrates foci of discontinuous nodular enhancement. The appearance is highly suggestive of hemangioma. Gallbladder: Unremarkable. Spleen: Normal in size and attenuation. Pancreas: Unremarkable. Adrenal glands: Unremarkable. Kidneys: The contrast enhanced kidneys demonstrate cortical atrophy and are without hydronephrosis. T he kidneys enhance and excrete symmetrically. Bilateral cysts measure up to 3.2 cm. Abdominal vasculature: The abdominal aorta is normal in course and caliber noting moderate atheroscle rotic calcification. Bowel: There is moderate colonic diverticulosis without CT evidence of acute diverticulitis. No bowel obstruction is seen. Mild fecal retention is seen throughout the colon. Question underdistention awais leticia mild wall thickening involving the left colon seen from the mid descending colon to the rectosigm oid. The appendix is not visualized. Peritoneum: There is no intraperitoneal free air or abdominal ascites. There is a moderate to large f at-containing umbilical hernia. Lymphadenopathy: None. Pelvic viscera: The prostate gland is surgically absent. The bladder wall is thickened and heterogene ous. Question mild pericystic stranding. There is evidence of previous right inguinal herniorrhaphy. Skeletal structures: The skeletal structures are osteopenic. There is advanced lumbosacral spondylosi s. No lytic or blastic lesions are seen. IMPRESSION: 1. There is underdistention versus mild wall thickening of the left colon. Correlate clinically for e vidence of a mild nonspecific colitis. 2. The prostate gland is surgically absent and the bladder wall appears thickened. Question faint per icystic stranding. These findings may be related to chronic bladder outlet obstruction and possibly t reatment related change. Correlate clinically and with urinalysis for evidence of cystitis. 3. Colonic diverticulosis without CT evidence of acute diverticulitis. 4. Hepatomegaly. 5. A 1.8 cm lesion in the left lobe of the liver is pathologically indeterminant but demonstrates foc i of peripheral nodular enhancement. This strongly suggests a benign hemangioma. This lesion has been present dating back to [address] and is of doubtful significance. 6. Mild cardiac enlargement. 7. Additional findings as above. ACT 112: Negative or not required by law. Electronically signed by: Chetan Ramírez M.D. 07/08/2020 8:49 AM
[2020-07-08 09:06] LABS: Basophils # (auto) 0.02 K/uL (0-0.2); Basophils % (auto) 0.3 %; Eosinophils # (auto) 0.21 K/uL (0-0.5); Eosinophils % (auto) 3.2 %; Hematocrit (blood only) 34.2 % (42-52); Hemoglobin 11.1 g/dL (14.0-18.0); Immature Granulocytes # (auto) 0.02 K/uL (0.00-0.02); Immature Granulocytes % (auto) 0.3 %; Lymphocytes # (auto) 2.37 K/uL (1.2-3.4); Lymphocytes % (auto) 36.1 %; Mean Corpuscular Hemoglobin 28.7 pg (25-34); Mean Corpuscular Hgb Conc 32.5 g/dL (32-36); Mean Corpuscular Volume 88.4 fL (80-100); Mean Platelet Volume 8.6 fL (7.4-10.4); Monocytes # (auto) 0.57 K/uL (0.11-0.59); Monocytes % (auto) 8.7 %; Neutrophils # (auto) 3.37 K/uL (1.4-6.5); Neutrophils % (auto) 51.4 %; Platelet Count 312 K/uL (130-400); RDW Coefficient of Variation 14.1 % (11.5-14.5); RDW Standard Deviation 45.2 fL (36.4-46.3); Red Blood Count 3.87 M/uL (4.7-6.1); White Blood Count 6.56 K/uL (4.8-10.8)
[2020-07-08 09:37] LABS: BUN Creatinine Ratio 10.8 (10-20); Calcium 9.2 mg/dl (8.5-10.1); Creatinine Clr Calc Pharmacy 39.6 ml/min; Est GFR (African American) 61.8; Est GFR (Non-African American) 53.3; Potassium 3.9 mmol/L (3.5-5.1)
[2020-07-08 09:38] LABS: INR 1.7 (0.9-1.1); Partial Thromboplastin Ratio 2.5; Prothrombin Time 17.9 Seconds (9.0-12.0)
[2020-07-08 09:41] LABS: Partial Thromboplastin Time 70.9 Seconds (21.0-31.0)
[2020-07-08] MEDS ORDERED: WARFARIN SOD 5 MG TAB PO SCH (16:00)
[2020-07-08 16:15] LABS: Partial Thromboplastin Ratio 2.5
[2020-07-08 16:22] LABS: Partial Thromboplastin Time 70.6 Seconds (21.0-31.0)
--- NOTE | 2020-07-08 19:52 | Hospitalist Progress Note ---
Date of Service July 08, 2020 Assessment & Plan (1) Abdominal pain: Possibly related to constipation CT head showed underdistention versus mild wall thickening of the left colon. Correlate clinically for evidence of a mild nonspecific colitis. Tolerated diet Continue pain management Will continue monitor Status post reverse arthroplasty of left shoulder: S/P reverse total shoulder by Dr. Gaspar on 06/18 Continue oxycodone for pain Continue outpatient therapy with PT fall precaution Follow up with ortho Bilateral pulmonary embolism: on Coumadin with INR 1.7 Will continue heparin drip bridge Continue monitor PT/INR Hypertension Continue amlodipine, carvedilol Continue monitor BP Right Liver lesion CT showed 1.8 cm lesion in the left lobe of the liver is pathologically indeterminant but demonstrates foci of peripheral nodular enhancement. This strongly suggests a benign hemangioma. This lesion has been present dating back to [address] and is of doubtful significance. DVT px on heparin subq CODE STATUS FULL CODE Admission and Anticipated Discharge Date Admission Date: July 08, 2020 Subjective Pt was seen and examined Lying in bed with no distress Pt said that his abdominal pain improved He said that he tolerated his diet Denies any chest pain, palpitation, dizziness and SOB Physical Exam Physical Exam: General- No acute distress Head- atraumatic Eyes- PERRL, EOMI, ENT- oropharynx clear Neck- supple, no JVD Lungs- clear to auscultation Heart- regular rhythm; no murmur Abdomen- normal bowel sounds, soft, nontender Extremities- no calf tenderness Neuro- alert, oriented x 3; PERRL, EOMI; no facial palsy; no dysarthria Skin- warm & dry Results & Data Results & Data ([facility]) Vital Signs (Past 12 Hours) Vital Signs Temp Pulse Resp BP Pulse Ox 07/08/20 15:21 36.6 C 72 16 146/79 H 96
[2020-07-08] MEDS ORDERED: MULTIVITAMIN TAB PO SCH (21:00)
[2020-07-08] MEDS ORDERED: OXYCODONE HCL IR 5 MG TAB (IMMEDIATE RELEASE) PO PRN (23:51)
[2020-07-08] MEDS ORDERED: MoRPHine SULFATE 2 MG/ML CARP IV PRN (23:57)
[2020-07-09 06:03] LABS: Estimated Average Glucose 108 mg/dl; Hemoglobin A1C 5.4 % (4.5-5.6)
[2020-07-09 07:43] LABS: INR 2.6 (0.9-1.1); Partial Thromboplastin Ratio 2.8; Prothrombin Time 26.4 Seconds (9.0-12.0)
[2020-07-09 07:46] LABS: Partial Thromboplastin Time 78.1 Seconds (21.0-31.0)
[2020-07-09] MEDS: carvediloL 6.25 MG TAB PO SCH (08:32)
[2020-07-09] MEDS: AMLODIPINE BESYLATE 5 MG TAB PO SCH (08:32)
[2020-07-09] MEDS: GABAPENTIN 100 MG CAP PO SCH (08:32)
[2020-07-09] MEDS: PANTOprazole 40 MG TAB PO SCH (08:32)
[2020-07-09] MEDS: CITALOPRAM 20 MG TAB PO SCH (08:32)
[2020-07-09] MEDS: ASPIRIN 81 MG ECTAB PO SCH (08:33)
[2020-07-09] MEDS: DOCUSATE SODIUM/SENNA 50/8.6MG TAB PO SCH (08:33)
[2020-07-09] MEDS: HEPARIN SODIUM/DEXTROSE 25,000 UNITS/500 ML BAG IV SCH (09:38)
--- NOTE | 2020-07-09 13:15 | Hospitalist Progress Note ---
Date of Service July 09, 2020 Assessment & Plan (1) Abdominal pain: Possibly related to constipation CT head showed underdistention versus mild wall thickening of the left colon. Correlate clinically for evidence of a mild nonspecific colitis. diet advanced and tolerated Continue stool softner Clinically improved Status post reverse arthroplasty of left shoulder: S/P reverse total shoulder by Dr. Gaspar on 06/18 Continue oxycodone for pain Continue outpatient therapy with PT fall precaution Follow up with ortho Bilateral pulmonary embolism: on Coumadin with INR 1.7 Will continue heparin drip bridge Continue monitor PT/INR Hypertension Continue amlodipine, carvedilol Continue monitor BP Right Liver lesion CT showed 1.8 cm lesion in the left lobe of the liver is pathologically indeterminant but demonstrates foci of peripheral nodular enhancement. This strongly suggests a benign hemangioma. This lesion has been present dating back to [address] and is of doubtful significance. DVT px on heparin subq CODE STATUS FULL CODE Admission and Anticipated Discharge Date Admission Date: July 08, 2020 Subjective Pt was seen and examined Sitting in chair with no distress Pt said that he feels much better today He said that he was able to tolerated his diet He has been walking in the hallway He said that he had a bowel movement last night and this morning Denies any chest pain, palpitation, dizziness and SOB Physical Exam Physical Exam: General- No acute distress Head- atraumatic Eyes- PERRL, EOMI, ENT- oropharynx clear Neck- supple, no JVD Lungs- clear to auscultation Heart- regular rhythm; no murmur Abdomen- normal bowel sounds, soft, nontender Extremities- no calf tenderness, Left shoulder with sling Neuro- alert, oriented x 3; PERRL, EOMI; no facial palsy; no dysarthria Skin- warm & dry Results & Data Results & Data ([facility]) Vital Signs (Past 12 Hours) Vital Signs Temp Pulse Resp BP Pulse Ox 07/09/20 06:56 36.6 C 77 19 147/75 H 92
--- NOTE | 2020-07-14 20:46 | Discharge Summary ---
Date of Service July 09, 2020 Admission HPI Per Admitting Provider History obtained from patient and records. 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 Last confinement 3 days ago for uncontrolled left shoulder pain postop and and poor p.o. intake, intermittent confusion. INR supratherapeutic during confinement. Confusion attributed to possible narcotics. At home the last 2 days, patient appetite not too good, not drinking as much. Constipation at home, patient denies narcotic intake. No chest pain, no shortness of breath, no headache. Patient feeling weak and fatigued. Denies depression. Patient brought to the ER by family. Belly pain much improved after small bowel movement at the ER. Patient uncomfortable going home. 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 Admission Exam Per Admitting Provider GENERAL: Comfortable, pleasant, no respiratory distress SKIN: Pallor , warm HEENT: Partial alopecia, pale palpebral conjunctivae, no ptosis, dry buccal mucosa NECK : Supple, no tenderness CHEST : Decreased breath sounds , no tenderness HEART : RRR, no obvious murmurs ABDOMEN: Some distention, nontender EXTREMITIES : No LE swelling/tenderness, sling over left upper extremity NEUROLOGIC : Coherent, no facial asymmetry, no other gross focality Principal Diagnosis Abdominal pain Status post reverse arthroplasty of left shoulder: Bilateral pulmonary embolism: Hypertension Right Liver lesion Discharge Exam General- No acute distress Head- atraumatic Eyes- PERRL, EOMI, ENT- oropharynx clear Neck- supple, no JVD Lungs- clear to auscultation Heart- regular rhythm; no murmur Abdomen- normal bowel sounds, soft, nontender Extremities- no calf tenderness, Left shoulder with sling Neuro- alert, oriented x 3; PERRL, EOMI; no facial palsy; no dysarthria Skin- warm & dry Discharge Data Allergies Allergy/AdvReac Type Severity Reaction Status Date / Time No Known Allergies Allergy Verified 07/07/20 23:50 Consultations 07/07/20 23:53 ED Decision to Admit Stat 07/08/20 04:23 Consult Case Management - Discharge Planning Routine Ordered Studies 07/07/20 22:13 CT abd pelvis IV con only Urgent CT SCAN OF THE ABDOMEN AND PELVIS WITH IV CONTRAST CLINICAL HISTORY: Lower abdominal pain. COMPARISON STUDY: Chest CT dated 09/22/2016. TECHNIQUE: Following the IV administration of 93 cc of Optiray 320, CT scan of the abdomen and pelvis is performed from the lung bases to the proximal femora. Images are reviewed in the axial, sagittal, and coronal planes. Exam is performed in a slightly delayed phase of enhancement of the IV came apart during the first contrast injection attempt. A dose lowering technique was utilized adhering to the principles of ALARA. There is streak artifact from the left arm which could not be elevated above the abdomen. CT DOSE: 550.66 mGy.cm FINDINGS: Lung bases: The heart is mildly enlarged and without pericardial effusion. The lung bases are clear noting bibasilar scarring/atelectasis. There is a small to moderate hiatal hernia. Liver: The contrast-enhanced liver is normal in size, contour, and attenuation. There is no intrahepatic biliary ductal dilatation. The hepatic veins and portal veins are patent. A 1.8 cm low-attenuation lesion in segment Tobias is seen on image #77. Although incompletely characterized, this demonstrates foci of discontinuous nodular enhancement. The appearance is highly suggestive of hemangioma. Gallbladder: Unremarkable. Spleen: Normal in size and attenuation. Pancreas: Unremarkable. Adrenal glands: Unremarkable. Kidneys: The contrast enhanced kidneys demonstrate cortical atrophy and are without hydronephrosis. The kidneys enhance and excrete symmetrically. Bilateral cysts measure up to 3.2 cm. Abdominal vasculature: The abdominal aorta is normal in course and caliber noting moderate atherosclerotic calcification. Bowel: There is moderate colonic diverticulosis without CT evidence of acute diverticulitis. No bowel obstruction is seen. Mild fecal retention is seen throughout the colon. Question underdistention versus mild wall thickening involving the left colon seen from the mid descending colon to the rectosigmoid. The appendix is not visualized. Peritoneum: There is no intraperitoneal free air or abdominal ascites. There is a moderate to large fat-containing umbilical hernia. Lymphadenopathy: None. Pelvic viscera: The prostate gland is surgically absent. The bladder wall is thickened and heterogeneous. Question mild pericystic stranding. There is evidence of previous right inguinal herniorrhaphy. Skeletal structures: The skeletal structures are osteopenic. There is advanced lumbosacral spondylosis. No lytic or blastic lesions are seen. IMPRESSION: 1. There is underdistention versus mild wall thickening of the left colon. Correlate clinically for evidence of a mild nonspecific colitis. 2. The prostate gland is surgically absent and the bladder wall appears thickened. Question faint pericystic stranding. These findings may be related to chronic bladder outlet obstruction and possibly treatment related change. Correlate clinically and with urinalysis for evidence of cystitis. 3. Colonic diverticulosis without CT evidence of acute diverticulitis. 4. Hepatomegaly. 5. A 1.8 cm lesion in the left lobe of the liver is pathologically indeterminant but demonstrates foci of peripheral nodular enhancement. This strongly suggests a benign hemangioma. This lesion has been present dating back to [address] and is of doubtful significance. 6. Mild cardiac enlargement. 7. Additional findings as above. ACT 112: Negative or not required by law. Electronically signed by: Chetan Ramírez M.D. 07/08/2020 8:49 AM Dictated: 07/08/20831 Transcribed: 07/08/20831 Hospital Course (1) Abdominal pain: Possibly related to constipation CT head showed underdistention versus mild wall thickening of the left colon. Correlate clinically for evidence of a mild nonspecific colitis. diet advanced and tolerated Continue stool softner Clinically improved Status post reverse arthroplasty of left shoulder: S/P reverse total shoulder by Dr. Gaspar on 06/18 Continue oxycodone for pain Continue outpatient therapy with PT fall precaution Follow up with ortho Bilateral pulmonary embolism: on Coumadin with INR 1.7 Will continue heparin drip bridge Continue monitor PT/INR Hypertension Continue amlodipine, carvedilol Continue monitor BP Right Liver lesion CT showed 1.8 cm lesion in the left lobe of the liver is pathologically indeterminant but demonstrates foci of peripheral nodular enhancement. This strongly suggests a benign hemangioma. This lesion has been present dating back to [address] and is of doubtful significance. DVT px on heparin subq CODE STATUS FULL CODE Total Time Total Time Spent Total Time Spent (In Minutes): 35 minutes Total Time Includes: Examination of the Patient, Discharge Planning, Medication Reconciliation, Communication With Other Providers and Other Discharge Plan Discharge Items Patient Disposition: Home - Home Health Services Reason For Visit: ABD PAIN Discharge Diagnosis: Abdominal pain Status post reverse arthroplasty of left shoulder: Bilateral pulmonary embolism: Hypertension Right Liver lesion Condition on Discharge: Fair Activity: Resume your previous activity Non-emergency contact: Primary Care Provider Call non-emergency contact if: you have any medication questions Follow-up/Referrals: Ranulfo Schumacher DO [Primary Care Provider] - (Date & Time 07/17/2020 3:00 PM Provider Ranulfo Schumacher DO Department General Internal Medicine [facility] ) Diet: Heart Healthy Addtl Attending Provider Instructions: Follow up with your primary care Dr. Schumacher within 1 week Follow up with your orthopedic Follow up with the coumadin clinic to monitor PT/INR Continue physical therapy Fall precaution Pending Studies at Discharge: No Stand-Alone Forms: My [facility], Smoking Cessation Medications and DC Order Prescriptions: New polyethylene glycol 3350 [Miralax] 17 gram Powder In Packet 17 g PO DAILY PRN (Reason: constipation) Qty: 30 RF: 0 Continued oxycodone-acetaminophen [Percocet] 5-325 mg tablet 1 tab PO Q6H PRN (Reason: pain) Qty: 20 RF: 0 carvedilol 6.25 mg Tablet 6.25 mg PO QAM RF: 0 gabapentin 100 mg Capsule 100 mg PO BID RF: 0 multivitamin Tablet 1 tab PO HS RF: 0 cholecalciferol (vitamin D3) [Vitamin D3] 125 mcg (5,000 unit) Tablet 125 mcg PO HS RF: 0 acetaminophen [Tylenol Extra Strength] 500 mg Tablet 500 mg PO Q6H PRN (Reason: Pain) RF: 0 amlodipine 2.5 mg tablet 2.5 mg PO QAM RF: 0 meclizine 12.5 mg tablet 12.5 mg PO TID PRN (Reason: DIZZY) RF: 0 albuterol sulfate 90 mcg/actuation HFA aerosol inhaler 1 - 2 puff INHALATION DIRECTED PRN (Reason: Shortness Of Breath Or Wheezing) RF: 0 citalopram 20 mg tablet 20 mg PO QAM RF: 0 pantoprazole 40 mg tablet,delayed release (DR/EC) 40 mg PO QAM RF: 0 aspirin 81 mg Tablet,Delayed Release (Dr/Ec) 81 mg PO DAILY RF: 0 warfarin 5 mg Tablet 2.5 mg PO WK RF: 0 warfarin 5 mg tablet 5 mg PO [id number] RF: 0 Discharge Orders: Discharge Order (Routine); Ordered 07/09/20 Ordered By: Zaki Biggs Admission Data Admit Date/Time: 07/08/20 02:21 Attending Provider: Zaki Biggs Admit Provider: Javed Shrestha Primary Care Provider: Ranulfo Schumacher Other Providers: Javed Shrestha Other Interventions: Discharge Summary Assessment (RN) Last Done: 07/09/20 14:01
== END 2020-07-09 14:36 | disposition home health service (06) ==
LOC: 3N 21:52 → ED 21:52 → 3N 07-08 04:01

== ENCOUNTER 2020-08-20 13:04 | Inpatient (IN) ==
--- NOTE | 2020-08-20 13:36 | Emergency Department Note ---
History of Present Illness General Chief complaint: Stroke/CVA Symptoms Stated complaint: UNSTEADY,WEAKNESS,SLURRED SPEECH Time Seen by Provider: 08/20/20 13:26 Source: patient History of Present Illness Provider complaint: Difficulty walking Onset (ago): hour(s) Location: head Severity: severe Pain Consistency: + constant Quality: + other (Unable to walk or balance) Relieved By: + none Associated symptoms: + cough (Chronic cough unchanged); no chest pain, no f ever/chills, no headaches, no nausea/vomiting, no shortness of breath and no weakness This is an 80-year-old male who woke up this morning at 8:30 AM and immediately had difficulty walking. He states that he could not stand up or keep his balance. He tried to go back to sleep to see if it would go away and then when he woke up later he still had symptoms. His daughter also noticed some abnormality of speech. He denies any focal numbness or weakness. He normally has some numbness in his hands due to neck problems which is unchanged. He denies any difficulty swallowing or change in his vision or visual loss. He has no headache. He does state that he is on Coumadin for blood clots in his lungs. He does take aspirin as well. He denies any chest discomfort, shortness of breath, abdominal pain, vomiting, diarrhea or urinary symptoms. He has no known exposure to COVID-19. He does have a chronic cough which is unchanged. He states also that he has chronic vertigo and takes medicine for this 3 times a day. His vertigo is unchanged. Home Medications Medication Instructions Recorded Confirmed Type citalopram 20 mg PO QAM 08/31/18 08/20/20 History pantoprazole 40 mg PO QAM 08/31/18 08/20/20 History carvedilol 6.25 mg PO QAM 03/09/20 08/20/20 History cholecalciferol (vitamin D3) 125 mcg PO HS 03/09/20 08/20/20 History [Vitamin D3] gabapentin 100 mg PO BID 03/09/20 08/20/20 History multivitamin 1 tab PO HS 03/09/20 08/20/20 History meclizine 12.5 mg PO TID PRN 03/12/20 08/20/20 History amlodipine 2.5 mg PO QAM 05/16/20 08/20/20 History aspirin 81 mg PO QAM 07/04/20 08/20/20 History warfarin 2.5 mg PO .MO@HS 07/04/20 08/20/20 History warfarin 5 mg PO .SUTUWETHFRSA@HS 07/04/20 08/20/20 History albuterol sulfate 1 - 2 puff INHALATION DIRECTED 07/07/20 08/20/20 History PRN polyethylene glycol 3350 [Miralax] 17 g PO DAILY PRN #30 ea 07/09/20 08/20/20 Rx Allergies Allergy/AdvReac Type Severity Reaction Status Date / Time No Known Allergies Allergy Verified 08/20/20 14:06 Past Med/Surg History Medical History (Updated 08/20/20 @ 17:15 by Rene Valdivia MD) Asthma Using albuterol inhaler TID now since PEs. Previously wasn't using inhaler at all. Cancer LUNG AND PROSTATE CANCER, both treated surgically Degenerative disc disease GERD (gastroesophageal reflux disease) HTN (hypertension) Migraine HX OF On anticoagulant therapy Osteoarthritis Pulmonary embolism hospitalized 03/12/2020-03/15/2020 [facility] w/ BL PE; unk etiology; on coumadin Surgical History History of adenoidectomy History of carpal tunnel release RT X 2 LEFT X 3 History of cataract surgery LEFT/RIGHT History of colonoscopy History of esophagogastroduodenoscopy (EGD) History of herniorrhaphy RT INGUINAL History of laminectomy LUMBAR History of lobectomy of lung RT MIDDLE LOBE History of prostatectomy History of tonsillectomy History of tooth extraction Status post reverse arthroplasty of left shoulder (~05/2020) Family History Father FHx: prostate cancer Grandfather (Paternal) FHx: prostate cancer Social History Smoking Status: Former smoker Tobacco Type: Cigars Years Smoked: 50; Second Hand Exposure: No; Hx Alcohol Use: No Hx Substance Use: No Preferred Language: Malay Communication Ability: Effective [employer]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 and A total of 10 systems reviewed and were otherwise negative Physical Exam Vital Signs Vital Signs - 24 hr 08/20/20 13:10 08/20/20 13:30 08/20/20 13:35 Temperature 36.9 C Temperature Source Oral Pulse Rate 79 80 79 Pulse Rate from SpO2 Sensor Pulse Rhythm Regular Pulse Strength Normal Respiratory Rate 18 22 22 Respiratory Effort / Characteristics Non-Labored Spontaneous Respiratory Depth Normal Respiratory Pattern Regular Blood Pressure 154/77 H 145/77 H Blood Pressure Mean 102 92 Blood Pressure Position Sitting Pulse Oximetry 96 Oxygen Delivery Method Room Air Sepsis Recent Fever Within 48 Hours No Sepsis New/Unexplained Change in Mental Status No Sepsis Action Taken by Nursing No Action Required 08/20/20 13:40 08/20/20 13:48 08/20/20 14:07 Temperature Temperature Source Pulse Rate 76 75 Pulse Rate from SpO2 Sensor Pulse Rhythm Pulse Strength Respiratory Rate 20 16 Respiratory Effort / Characteristics Respiratory Depth Respiratory Pattern Blood Pressure Blood Pressure Mean Blood Pressure Position Pulse Oximetry 96 Oxygen Delivery Method Room Air Sepsis Recent Fever Within 48 Hours Sepsis New/Unexplained Change in Mental Status Sepsis Action Taken by Nursing 08/20/20 14:09 08/20/20 14:11 08/20/20 14:20 Temperature Temperature Source Pulse Rate 75 74 71 Pulse Rate from SpO2 Sensor 74 74 71 Pulse Rhythm Pulse Strength Respiratory Rate 20 18 13 Respiratory Effort / Characteristics Respiratory Depth Respiratory Pattern Blood Pressure 152/88 H Blood Pressure Mean 119 Blood Pressure Position Pulse Oximetry 97 97 96 Oxygen Delivery Method Sepsis Recent Fever Within 48 Hours Sepsis New/Unexplained Change in Mental Status Sepsis Action Taken by Nursing 08/20/20 14:30 08/20/20 14:40 08/20/20 14:50 Temperature Temperature Source Pulse Rate 82 67 71 Pulse Rate from SpO2 Sensor 68 70 Pulse Rhythm Pulse Strength Respiratory Rate 18 18 15 Respiratory Effort / Characteristics Respiratory Depth Respiratory Pattern Blood Pressure Blood Pressure Mean Blood Pressure Position Pulse Oximetry 96 95 Oxygen Delivery Method Sepsis Recent Fever Within 48 Hours Sepsis New/Unexplained Change in Mental Status Sepsis Action Taken by Nursing 08/20/20 15:00 08/20/20 15:01 08/20/20 15:10 Temperature Temperature Source Pulse Rate 67 68 69 Pulse Rate from SpO2 Sensor 67 68 69 Pulse Rhythm Pulse Strength Respiratory Rate 19 17 18 Respiratory Effort / Characteristics Respiratory Depth Respiratory Pattern Blood Pressure 140/79 Blood Pressure Mean 106 Blood Pressure Position Pulse Oximetry 95 95 95 Oxygen Delivery Method Sepsis Recent Fever Within 48 Hours Sepsis New/Unexplained Change in Mental Status Sepsis Action Taken by Nursing 08/20/20 15:20 08/20/20 15:30 08/20/20 15:40 Temperature Temperature Source Pulse Rate 73 70 70 Pulse Rate from SpO2 Sensor 74 71 70 Pulse Rhythm Pulse Strength Respiratory Rate 17 20 24 Respiratory Effort / Characteristics Respiratory Depth Respiratory Pattern Blood Pressure Blood Pressure Mean Blood Pressure Position Pulse Oximetry 96 94 95 Oxygen Delivery Method Sepsis Recent Fever Within 48 Hours Sepsis New/Unexplained Change in Mental Status Sepsis Action Taken by Nursing 08/20/20 16:40 08/20/20 16:50 08/20/20 17:00 Temperature Temperature Source Pulse Rate 77 73 71 Pulse Rate from SpO2 Sensor 77 74 71 Pulse Rhythm Pulse Strength Respiratory Rate 12 19 20 Respiratory Effort / Characteristics Respiratory Depth Respiratory Pattern Blood Pressure 171/96 H 167/98 H Blood Pressure Mean 136 119 Blood Pressure Position Pulse Oximetry 97 96 96 Oxygen Delivery Method Sepsis Recent Fever Within 48 Hours Sepsis New/Unexplained Change in Mental Status Sepsis Action Taken by Nursing 08/20/20 17:10 Temperature Temperature Source Pulse Rate 72 Pulse Rate from SpO2 Sensor 71 Pulse Rhythm Pulse Strength Respiratory Rate 21 Respiratory Effort / Characteristics Respiratory Depth Respiratory Pattern Blood Pressure Blood Pressure Mean Blood Pressure Position Pulse Oximetry 96 Oxygen Delivery Method Sepsis Recent Fever Within 48 Hours Sepsis New/Unexplained Change in Mental Status Sepsis Action Taken by Nursing Constitutional: Vital signs reviewed. Eyes: Pupils are equal round reactive to light. Conjunctiva are noninjected. ENT: Pharynx is clear without erythema or exudate. Mucous membranes are moist. Neck supple without meningeal signs. Respiratory: Clear to auscultation bilaterally. Breath sounds are equal bilaterally. Cardiovascular: Regular rate and rhythm. No rubs or gallops. GI: Soft, nondistended and nontender. Bowel sounds are present. Musculoskeletal: No peripheral edema. No lower extremity tenderness. Integumentary: No cyanosis. or jaundice. Neurologic: The patient is awake and alert. Cranial nerves II-XII are intact. Motor is 5 out of 5 all extremities. Sensation is intact to light touch all extremities. Normal speech. No pronator drift. No limb ataxia. Unable to stand on his own or even take a step without losing his balance. Psychiatric: Normal affect. Not anxious appearing. Course Administered Medications Discontinued Medications Gadobutrol (Gadobutrol 65ml Vial) 6.5 ml IV ONCE ONE Stop: 08/20/20 16:19 Last Admin: 08/20/20 16:19 Dose: 6.5 ml Documented by: [id number] Ioversol (Optiray 320 125ml) 120 ml IV ONCE ONE Stop: 08/20/20 13:38 Last Admin: 08/20/20 13:38 Dose: 120 ml Documented by: [id number] Medical Decision Making Differential Diagnosis CVA, ICH, supratherapeutic INR, intracranial mass, metabolic derangement Medical Records Attestation: I reviewed the patient's medical records. I did perform a limited focused review of portions of the patient's old chart on the electronic medical record. The patient was admitted in June for sharath ateral pulmonary emboli after shoulder surgery Home Medications Current Medication List: was personally reviewed by me Laboratory Data Attestation: I reviewed the patient's lab results. Result diagrams: 08/20/20 13:37 08/20/20 13:37 Lab Results 08/20/20 08/20/20 08/20/20 Range/Units 13:37 13:37 13:37 WBC 8.29 (4.8-10.8) K/uL RBC 4.31 L (4.7-6.1) M/uL Hgb 12.4 L (14.0-18.0) g/dL Hct 37.6 L (42-52) % MCV 87.2 (80-100) fL MCH 28.8 (25-34) pg MCHC 33.0 (32-36) g/dL RDW Std Deviation 45.0 (36.4-46.3) fL RDW Coeff of Marely 14.0 (11.5-14.5) % Plt Count 221 (130-400) K/uL MPV 9.3 (7.4-10.4) fL Immature Gran % (Auto) 0.2 % Neut % (Auto) 63.0 % Lymph % (Auto) 25.0 % [place] % (Auto) 7.5 % Eos % (Auto) 3.9 % Baso % (Auto) 0.4 % Neut # (Auto) 5.23 (1.4-6.5) K/uL Lymph # (Auto) 2.07 (1.2-3.4) K/uL [place] # (Auto) 0.62 H (0.11-0.59) K/uL Eos # (Auto) 0.32 (0-0.5) K/uL Baso # (Auto) 0.03 (0-0.2) K/uL Immature Gran # (Auto) 0.02 (0.00-0.02) K/uL PT 30.5 H (9.0-12.0) Seconds POC INR (0.9-1.1) INR 3.1 H (0.9-1.1) APTT 40.4 H (21.0-31.0) Seconds PTT Ratio 1.4 Sodium 139 (136-145) mmol/L Potassium 4.0 (3.5-5.1) mmol/L Chloride 108 H (98-107) mmol/L Carbon Dioxide 26 (21-32) mmol/L Anion Gap 5.0 (3-11) BUN 21 H (7-18) mg/dl Creatinine 1.30 (0.6-1.4) mg/dl Est Cr Clr Drug Dosing 37.6 ml/min Est GFR ( Amer) 58.9 Est GFR (Non-Af Amer) 50.8 BUN/Creatinine Ratio 16.5 (10-20) Glucose 102 H (70-99) mg/dl POC Glucose (70-99) mg/dl Calcium 8.6 (8.5-10.1) mg/dl Magnesium 2.1 (1.8-2.4) mg/dl Total Bilirubin 0.4 (0.2-1) mg/dl AST 13 L (15-37) U/L ALT 19 (12-78) U/L Alkaline Phosphatase 85 (45-117) U/L Troponin I < 0.015 (0-0.045) ng/ml Total Protein 6.9 (6.4-8.2) gm/dl Albumin 3.4 (3.4-5.0) gm/dl Globulin 3.5 (2.5-4.0) gm/dl Albumin/Globulin Ratio 1.0 (0.9-2) SARS-CoV-2 Ag (Rapid) (Negative) 08/20/20 08/20/20 08/20/20 Range/Units 13:45 14:08 Unknown WBC (4.8-10.8) K/uL RBC (4.7-6.1) M/uL Hgb (14.0-18.0) g/dL Hct (42-52) % MCV (80-100) fL MCH (25-34) pg MCHC (32-36) g/dL RDW Std Deviation (36.4-46.3) fL RDW Coeff of Marely (11.5-14.5) % Plt Count (130-400) K/uL MPV (7.4-10.4) fL Immature Gran % (Auto) % Neut % (Auto) % Lymph % (Auto) % [place] % (Auto) % Eos % (Auto) % Baso % (Auto) % Neut # (Auto) (1.4-6.5) K/uL Lymph # (Auto) (1.2-3.4) K/uL [place] # (Auto) (0.11-0.59) K/uL Eos # (Auto) (0-0.5) K/uL Baso # (Auto) (0-0.2) K/uL Immature Gran # (Auto) (0.00-0.02) K/uL PT (9.0-12.0) Seconds POC INR 3.1 H (0.9-1.1) INR (0.9-1.1) APTT (21.0-31.0) Seconds PTT Ratio Sodium (136-145) mmol/L Potassium (3.5-5.1) mmol/L Chloride (98-107) mmol/L Carbon Dioxide (21-32) mmol/L Anion Gap (3-11) BUN (7-18) mg/dl Creatinine (0.6-1.4) mg/dl Est Cr Clr Drug Dosing ml/min Est GFR ( Amer) Est GFR (Non-Af Amer) BUN/Creatinine Ratio (10-20) Glucose (70-99) mg/dl POC Glucose 106 H (70-99) mg/dl Calcium (8.5-10.1) mg/dl Magnesium (1.8-2.4) mg/dl Total Bilirubin (0.2-1) mg/dl AST (15-37) U/L ALT (12-78) U/L Alkaline Phosphatase (45-117) U/L Troponin I (0-0.045) ng/ml Total Protein (6.4-8.2) gm/dl Albumin (3.4-5.0) gm/dl Globulin (2.5-4.0) gm/dl Albumin/Globulin Ratio (0.9-2) SARS-CoV-2 Ag (Rapid) Negative (Negative) Imaging Data Radiologist's Impression: CT head/brain wo con CLINICAL HISTORY: 80 years-old Male with ataxia. Acute strokelike symptoms TECHNIQUE: Multiple axial CT images of the head were obtained without contrast. A dose lowering technique was utilized adhering to the principles of ALARA. COMPARISON: CTA head neck of same day. FINDINGS: No acute intracranial hemorrhage, midline shift, intracranial mass, hydrocephalus, territorial ischemia or abnormal extra-axial collection. Age- related involutional changes. Senescent calcifications of the left lentiform nucleus. Confluent white matter hypodensities suggest chronic microvascular ischemic disease. Cerebral vascular calcifications. Mildly motion degraded exam. The calvarium is intact. Prior bilateral lens replacement. The paranasal sinuses, mastoid air cells, and middle ear cavities are clear. IMPRESSION: No acute intracranial abnormality. ACT 112: Negative or not required by law. The above report was generated using voice recognition software. It may contain grammatical, syntax or spelling errors. Electronically signed by: Richard Hi M.D. 08/20/2020 2:[address] angio head w con CLINICAL HISTORY: ataxia POSSIBLE ACUTE STROKE TECHNIQUE: CT angiography of the head was performed in a dynamic helical fashion during intravenous administration of 120 cc of Optiray 320. MIP imaging was performed. A dose lowering technique was utilized adhering to the principles of ALARA. CT DOSE: 1254.97 mGy.cm COMPARISON STUDY: No previous studies for comparison. 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 There are no anterior circulation aneurysms. There is no evidence for major intracranial branch occlusion. There is an 80% diameter stenosis of the proximal right M1 segment. There are additional mild nonhemodynamically significant intracranial stenotic lesions. The dural venous sinuses appear patent. Incidental note is made of a sphenoid sinus air-fluid level. IMPRESSION: 1. 80% diameter stenosis of the proximal M1 segment of the right middle cerebral artery 2. Minor fusiform dilatation of the distal right vertebral artery measuring 5 mm in diameter 3. No evidence of aneurysm 4. Left sphenoid sinus air-fluid level ACT 112: Negative or not required by law. Electronically signed by: Laci Brownlee M.D. 08/20/2020 2:[address] angio neck with con CLINICAL HISTORY: 80 years-old Male with ataxia. Acute ataxia COMPARISON STUDY: CTA had of same day TECHNIQUE: Following the IV administration of 1 20 mL of Optiray 320, CT angiogram of the neck was performed from the aortic arch to the skull base. Images are reviewed in the axial, sagittal, and coronal planes. 3-D MIPS images are created and assessed. IV contrast was administered without complication. All measurements were calculated based on NASCET criteria. A dose lowering technique was utilized adhering to the principles of ALARA. FINDINGS: The imaged opacified pulmonary arterial tree is unremarkable. Mixed plaque of the thoracic aortic arch. Patency of the innominate and imaged subclavian ar teries. Common carotid arteries are widely patent. There is mild mixed plaque of the bilateral carotid bulbs resulting in less than 50% luminal narrowing. The imaged bilateral internal carotid arteries are widely patent. Codominant vertebral arteries. There is mild fusiform dilation of the V4 segment right vertebral artery measures up to 5 mm transversely on image 351 series 6. Ill-defined groundglass and tree-in-bud nodules of the right upper lobe. Emphysema. Soft tissues are unremarkable. Multilevel degenerative changes of the spine. IMPRESSION: 1. Mild mixed plaque of the carotid bulbs results in less than 50% luminal narrowing of the bilateral proximal internal carotid arteries. 2. Mild fusiform dilation of the V4 segment right vertebral artery, 5 mm. 3. Subtle tree-in-bud and groundglass opacities of the right upper lobe are suggestive of infectious or inflammatory bronchiolitis/pneumonitis. 4. Emphysema. ACT 112: Negative or not required by law. The above report was generated using voice recognition software. It may contain grammatical, syntax or spelling errors. Electronically signed by: Richard Hi M.D. 08/20/2020 2:16 PMXR chest 1V portable HISTORY: 80 years-old Male abnormal CT eval for pna follow-up study in a patient with possible pneumonia. COMPARISON: CTA of the neck 08/20/2020 TECHNIQUE: Portable AP view of the chest FINDINGS: Cardiac silhouette is upper limits of normal in size. There is unchanged moderate hemidiaphragmatic elevation. Emphysema. No pneumothorax, large pleural effusion, overt pulmonary edema or airspace consolidation typical for pneumonia. Chronic blunting of the costophrenic angles. Degenerative changes of the spine and right shoulder. Reverse left shoulder total joint arthroplasty. IMPRESSION: 1. No acute process. 2. Emphysema. 3. The subtle right upper lobe opacities described on the CTA of the neck study of same day are not appreciable by radiography. ACT 112: Negative or not required by law. The above report was generated using voice recognition software. It may contain grammatical, syntax or spelling errors. Electronically signed by: Richard Hi M.D. 08/20/2020 2:52 PM MRI OF THE BRAIN COMBO CLINICAL HISTORY: Ataxia. Lung cancer. COMPARISON STUDY: CT of the brain dated 08/20/2020. TECHNIQUE: MRI of the brain was performed utilizing various T1 and T2-weighted sequences in the axial, sagittal, and coronal planes. Contrast-enhanced sequences were acquired following the administration of 6.5 cc of Gadavist. FINDINGS: Brain parenchyma: There is a 13 mm focus of restricted diffusion identified in the right viraj consistent with acute to subacute ischemia. No additional foci of acute ischemia are identified. There is age-related involutional change noting moderate subcortical and periventricular microangiopathic disease. There is no hemorrhage or mass effect. No enhancing mass lesion is identified on the postcontrast images. Brar-white matter differentiation is preserved. No extra- axial fluid collection is seen. The cerebellar tonsils are normal in configuration. Ventricles, sulci, and cisterns: Prominent secondary to involutional change. Pituitary and sella: Unremarkable. Intracranial vasculature: Normal flow voids are maintained at the skull base. Orbits: The bony orbits are grossly intact. Orbital contents are normal in appearance noting bilateral ocular lens implants. Sinuses and mastoids: There is subtotal opacification of left sphenoid sinus. The remaining paranasal sinuses are clear. The mastoid air cells are well pneumatized. Calvarium: Unremarkable. Cervical cord: Partially visualized cervical spinal cord is normal in morphology and signal intensity. IMPRESSION: 1. Findings are consistent with an acute to subacute lacunar infarct in the ri ght viraj. 2. No additional foci of acute ischemia are identified. 3. There is no hemorrhage or enhancing mass. 4. Left sphenoid sinus disease as above. ACT 112: Negative or not required by law. Electronically signed by: Chetan Ramírez M.D. 08/20/2020 4:33 PM ECG Data Attestation: I personally reviewed and interpreted this ECG as follows: Indication: + other (Stroke symptoms) Rate (beats per minute): 73 Rhythm: + normal sinus ECG ST segments: no ST elevation ECG Findings: no PACs and no PVCs MDM Narrative I did evaluate the patient as noted above. The patient is presenting with severe ataxia starting at 8:30 AM this morning. He had no symptoms when he went to bed. He is not an IV TPA candidate given the time course of his symptoms as well as the fact that he is on Coumadin. His bedside INR is 3.1. I did, however, call a stroke alert. IV access was established. I did place an order for continuous cardiac monitoring. The monitor showed normal sinus rhythm at a rate of 79 bpm. I did order and personally review the patient's 12-lead EKG as described above. He has no acute ischemic changes. I did order and review the patient's blood work as noted in the electronic medical record. INR is 3.1. He is slightly anemic with a hemoglobin of 12.4. Electrolytes are unremarkable. Rapid COVID-19 testing was negative. I did order a CT of the head and CT angiogram of the head and neck. I did review the images myself as well as the radiology report as described above. There is no evidence of acute stroke. He does have a percent stenosis of the proximal M1 segment of the right MCA. No aneurysm is noted. Also noted was some very subtle groundglass opacities in the right upper lobe. I did discuss case with Dr. Pollack of [place] stroke neurolog[facility]. She did not feel the patient needed any acute intervention or transfer to a tertiary care center. She recommended local hospitalization and MRI. I did order an MRI of the brain. I did discuss the results with the patient and his daughter. I did order and personally reviewed the images of the patient's chest x-ray as described above. No evidence of any airspace op acities. He denies having any pulmonary symptoms. He will be hospitalized for further care and evaluation. I did discuss case with the hospitalist and disease case manager. MRI later demonstrated an acute to subacute lacunar infarct in the right viraj. Impression & Plan Acute cerebrovascular accident, Acute ataxia, Supratherapeutic INR, Middle cerebral artery stenosis Discharge Plan Visit Data Chief Complaint: Stroke/CVA Symptoms Stated Complaint: UNSTEADY,WEAKNESS,SLURRED SPEECH ED Provider: Rene Valdivia Discharge Problem: Acute cerebrovascular accident, Acute ataxia, Supratherapeutic INR, Middle cerebral artery stenosis Patient Disposition: Being Evaluated by Hospitalist Forms Stand Alone Forms: My [facility] Prescriptions Prescriptions: No Action carvedilol 6.25 mg Tablet 6.25 mg PO QAM RF: 0 gabapentin 100 mg Capsule 100 mg PO BID RF: 0 multivitamin Tablet 1 tab PO HS RF: 0 cholecalciferol (vitamin D3) [Vitamin D3] 125 mcg (5,000 unit) Tablet 125 mcg PO HS RF: 0 amlodipine 2.5 mg tablet 2.5 mg PO QAM RF: 0 meclizine 12.5 mg tablet 12.5 mg PO TID PRN (Reason: DIZZY) RF: 0 albuterol sulfate 90 mcg/actuation HFA aerosol inhaler 1 - 2 puff INHALATION DIRECTED PRN (Reason: Shortness Of Breath Or Wheezing) RF: 0 polyethylene glycol 3350 [Miralax] 17 gram Powder In Packet 17 g PO DAILY PRN (Reason: constipation) Qty: 30 RF: 0 citalopram 20 mg tablet 20 mg PO QAM RF: 0 pantoprazole 40 mg tablet,delayed release (DR/EC) 40 mg PO QAM RF: 0 aspirin 81 mg Tablet,Delayed Release (Dr/Ec) 81 mg PO QAM RF: 0 warfarin 5 mg Tablet 2.5 mg PO .MO@HS RF: 0 warfarin 5 mg tablet 5 mg PO .SUTUWETHFRSA@HS RF: 0 Referrals Referrals: Ranulfo Schumacher DO [Primary Care Provider] - Discharge Problem: Middle cerebral artery stenosis Qualifiers: Laterality: right Qualified Code(s): I66.01 - Occlusion and stenosis of right middle cerebral artery
[2020-08-20] MEDS ORDERED: OPTIRAY 320 125ml IV ONE (13:37)
[2020-08-20 13:51] LABS: Basophils # (auto) 0.03 K/uL (0-0.2); Basophils % (auto) 0.4 %; Eosinophils # (auto) 0.32 K/uL (0-0.5); Eosinophils % (auto) 3.9 %; Hematocrit (blood only) 37.6 % (42-52); Hemoglobin 12.4 g/dL (14.0-18.0); Immature Granulocytes # (auto) 0.02 K/uL (0.00-0.02); Immature Granulocytes % (auto) 0.2 %; Lymphocytes # (auto) 2.07 K/uL (1.2-3.4); Mean Corpuscular Hemoglobin 28.8 pg (25-34); Mean Corpuscular Volume 87.2 fL (80-100); Mean Platelet Volume 9.3 fL (7.4-10.4); Monocytes # (auto) 0.62 K/uL (0.11-0.59); Monocytes % (auto) 7.5 %; Neutrophils # (auto) 5.23 K/uL (1.4-6.5); Platelet Count 221 K/uL (130-400); Red Blood Count 4.31 M/uL (4.7-6.1); White Blood Count 8.29 K/uL (4.8-10.8)
[2020-08-20 14:09] LABS: Alanine Aminotransferase 19 U/L (12-78); Albumin Level 3.4 gm/dl (3.4-5.0); Aspartate Aminotransferase 13 U/L (15-37); BUN Creatinine Ratio 16.5 (10-20); Blood Urea Nitrogen 21 mg/dl (7-18); Calcium 8.6 mg/dl (8.5-10.1); Carbon Dioxide 26 mmol/L (21-32); Chloride 108 mmol/L (98-107); Creatinine Clr Calc Pharmacy 37.6 ml/min; Est GFR (African American) 58.9; Est GFR (Non-African American) 50.8; Glucose 102 mg/dl (70-99); Magnesium 2.1 mg/dl (1.8-2.4); Sodium 139 mmol/L (136-145)
--- NOTE | 2020-08-20 14:09 | CT Scan Report ---
CT head/brain wo con CLINICAL HISTORY: 80 years-old Male with ataxia. Acute strokelike symptoms TECHNIQUE: Multiple axial CT images of the head were obtained without contrast. A dose lowering tech nique was utilized adhering to the principles of ALARA. COMPARISON: CTA head neck of same day. FINDINGS: No acute intracranial hemorrhage, midline shift, intracranial mass, hydrocephalus, territorial ischem ia or abnormal extra-axial collection. Age-related involutional changes. Senescent calcifications of the left lentiform nucleus. Confluent white matter hypodensities suggest chronic microvascular ischem ic disease. Cerebral vascular calcifications. Mildly motion degraded exam. The calvarium is intact. Prior bilateral lens replacement. The paranasal sinuses, mastoid air cells, and middle ear cavities are clear. IMPRESSION: No acute intracranial abnormality. ACT 112: Negative or not required by law. The above report was generated using voice recognition software. It may contain grammatical, syntax o r spelling errors. Electronically signed by: Richard Hi M.D. 08/20/2020 2:08 PM
[2020-08-20 14:10] LABS: INR 3.1 (0.9-1.1); Partial Thromboplastin Ratio 1.4; Partial Thromboplastin Time 40.4 Seconds (21.0-31.0); Prothrombin Time 30.5 Seconds (9.0-12.0)
[2020-08-20 14:14] LABS: Alkaline Phosphatase 85 U/L (45-117); Bilirubin,Total 0.4 mg/dl (0.2-1); Globulin 3.5 gm/dl (2.5-4.0); Total Protein 6.9 gm/dl (6.4-8.2); Troponin I < 0.015 ng/ml (0-0.045)
--- NOTE | 2020-08-20 14:15 | CT Scan Report ---
CT angio head w con CLINICAL HISTORY: ataxia POSSIBLE ACUTE STROKE TECHNIQUE: CT angiography of the head was performed in a dynamic helical fashion during intravenous a dministration of 120 cc of Optiray 320. MIP imaging was performed. A dose lowering technique was util ized adhering to the principles of ALARA. CT DOSE: 1254.97 mGy.cm COMPARISON STUDY: No previous studies for comparison. 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 There are no anterior circulation aneurysms. There is no evidence for major intracranial branch oc clusion. There is an 80% diameter stenosis of the proximal right M1 segment. There are additional mil d nonhemodynamically significant intracranial stenotic lesions. The dural venous sinuses appear paten t. Incidental note is made of a sphenoid sinus air-fluid level. IMPRESSION: 1. 80% diameter stenosis of the proximal M1 segment of the right middle cerebral artery 2. Minor fusiform dilatation of the distal right vertebral artery measuring 5 mm in diameter 3. No evidence of aneurysm 4. Left sphenoid sinus air-fluid level ACT 112: Negative or not required by law. Electronically signed by: Laci Brownlee M.D. 08/20/2020 2:13 PM
--- NOTE | 2020-08-20 14:17 | CT Scan Report ---
CT angio neck with con CLINICAL HISTORY: 80 years-old Male with ataxia. Acute ataxia COMPARISON STUDY: CTA had of same day TECHNIQUE: Following the IV administration of 1 20 mL of Optiray 320, CT angiogram of the neck was pe rformed from the aortic arch to the skull base. Images are reviewed in the axial, sagittal, and coron al planes. 3-D MIPS images are created and assessed. IV contrast was administered without complicatio n. All measurements were calculated based on NASCET criteria. A dose lowering technique was utilized adhering to the principles of ALARA. FINDINGS: The imaged opacified pulmonary arterial tree is unremarkable. Mixed plaque of the thoracic aortic arc h. Patency of the innominate and imaged subclavian arteries. Common carotid arteries are widely paten t. There is mild mixed plaque of the bilateral carotid bulbs resulting in less than 50% luminal narro wing. The imaged bilateral internal carotid arteries are widely patent. Codominant vertebral arteries . There is mild fusiform dilation of the V4 segment right vertebral artery measures up to 5 mm transv ersely on image 351 series 6. Ill-defined groundglass and tree-in-bud nodules of the right upper lobe. Emphysema. Soft tissues are unremarkable. Multilevel degenerative changes of the spine. IMPRESSION: 1. Mild mixed plaque of the carotid bulbs results in less than 50% luminal narrowing of the bilateral proximal internal carotid arteries. 2. Mild fusiform dilation of the V4 segment right vertebral artery, 5 mm. 3. Subtle tree-in-bud and groundglass opacities of the right upper lobe are suggestive of infectious or inflammatory bronchiolitis/pneumonitis. 4. Emphysema. ACT 112: Negative or not required by law. The above report was generated using voice recognition software. It may contain grammatical, syntax o r spelling errors. Electronically signed by: Richard Hi M.D. 08/20/2020 2:16 PM
--- NOTE | 2020-08-20 14:48 | History & Physical Report ---
Date of Service August 20, 2020 Assessment & Plan (1) Acute cerebrovascular accident: Acute CVA: Not a candidate for TPA--unknown duration, therapeutic on Coumadin ER physician discussed with Dr. Pollack of [place] stroke neurology and was thought the patient doesn't need any acute intervention or transfer to a tertiary care center. --MRI Brain:Findings are consistent with an acute to subacute lacunar infarct in the right viraj. --Head CTA:80% diameter stenosis of the proximal M1 segment of the right middle cerebral artery. Minor fusiform dilatation of the distal right vertebral artery measuring 5 mm in diameter. No evidence of aneurysm. Left sphenoid sinus air- fluid level --Neck CTA:Mild mixed plaque of the carotid bulbs results in less than 50% luminal narrowing of the bilateral proximal internal carotid arteries. Mild fusiform dilation of the V4 segment right vertebral artery, 5 mm. Subtle tree-in-bud and groundglass opacities of the right upper lobe are suggestive of infectious or inflammatory bronchiolitis/pneumonitis. Emphysema. -Admit in Tele Stroke work up including lipid panel, ECHO Speech and swallow eval Patient took aspirin this morning Will DC Aspirin and start on Plavix Start on Lipitor 40mg daily Neuro checks, Neurology consult PT/OT Allow permissive HTN in setting of acute CVA Hold Amlodipine Will hold coumadin today to risk for hemorrhagic transformation Plan to repeat CT head tmw if if no bleed, plan to resume coumadin tmw. Mild supratherapeutic INR INR 3.1 Hold Coumadin today as above Monitor PT/INR and for any bleeding issues Lung cancer S/P right middle lobectomy Prostate cancer S/P resection H/O PE On chronic anticoagulation with Coumadin INR:3.1 Resume coumadin as able Hypertension On amlodipine, carvedilol Monitor BP GERD Continue PPI H/O Vertigo Meclizine PRN CKD stage III Cr at baseline Monitor renal function Avoid nephrotoxic agents as able DVT prophylaxis INR 3.1 Resume Coumadin as able CODE STATUS Full code Disposition Admit in Telemetry History of Present Illness Chief Complaint: Strokelike symptoms Primary Care Provider: Ranulfo Schumacher DO Patient is an 80-year-old male with history of lung cancer S/P right middle lobectomy, prostate cancer S/P resection, pulmonary embolism on chronic anticoagulation with Coumadin, hypertension, GERD, migraine, generalized anxiety disorder, CKD stage III and other medical problems presents with history of slurred speech, trouble walking which started about 8.30AM. As per the patient and his daughter, patient had been well last known at 1 AM. Patient was able to ambulate well overnight to the bathroom. He states that when he woke up he had slurred/muffled speech, word finding difficulty and had trouble with walking and noted balance issues. He reports associated mild occipital headache. He states having chronic vertigo and uses meclizine as needed. While getting CT scan in ED, he noticed to have a transient episode of vertigo again which currently resolved. ER physician discussed with telemetry neurology, and was thought to be not a candidate for TPA or endovascular intervention. Denies having any focal weakness, facial deformity, dysphagia, odynophagia. He reports chronic numbness in his hands which he attributes to carpal tunnel, which is unchanged. Also states having chronic cough which is unchanged, some chest tightness nonradiating, no aggravating relieving factors not associated with nausea, vomiting, diaphoresis or shortness of breath. He admits to taking his aspirin at home. Denies any history of palpitations, orthopnea, dizziness, wheezing, hemoptysis, fever, chills, fall, head trauma, LOC, change in vision, double/blurry vision, facial deformity, bowel/bladder incontinence, nausea, vomiting, abdominal pain, blood in stools, diarrhea, change in appetite, weight loss, dysuria, hematuria, recent travel, sick contact, recent change in medications. Allergies Allergy/AdvReac Type Severity Reaction Status Date / Time No Known Allergies Allergy Verified 08/20/20 14:06 Home Medications Medication Instructions Recorded Confirmed Type citalopram 20 mg PO QAM 08/31/18 08/20/20 History pantoprazole 40 mg PO QAM 08/31/18 08/20/20 History carvedilol 6.25 mg PO QAM 03/09/20 08/20/20 History cholecalciferol (vitamin D3) 125 mcg PO HS 03/09/20 08/20/20 History [Vitamin D3] gabapentin 100 mg PO BID 03/09/20 08/20/20 History multivitamin 1 tab PO HS 03/09/20 08/20/20 History meclizine 12.5 mg PO TID PRN 03/12/20 08/20/20 History amlodipine 2.5 mg PO QAM 05/16/20 08/20/20 History aspirin 81 mg PO QAM 07/04/20 08/20/20 History warfarin 2.5 mg PO .MO@HS 07/04/20 08/20/20 History warfarin 5 mg PO .SUTUWETHFRSA@HS 07/04/20 08/20/20 History albuterol sulfate 1 - 2 puff INHALATION DIRECTED 07/07/20 08/20/20 History PRN polyethylene glycol 3350 [Miralax] 17 g PO DAILY PRN #30 ea 07/09/20 08/20/20 Rx Past Med/Surg History Medical History Asthma Using albuterol inhaler TID now since PEs. Previously wasn't using inhaler at all. Cancer LUNG AND PROSTATE CANCER, both treated surgically Degenerative disc disease GERD (gastroesophageal reflux disease) HTN (hypertension) Migraine HX OF On anticoagulant therapy Osteoarthritis Pulmonary embolism hospitalized 03/12/2020-03/15/2020 [facility] w/ BL PE; unk etiology; on coumadin Surgical History History of adenoidectomy History of carpal tunnel release RT X 2 LEFT X 3 History of cataract surgery LEFT/RIGHT History of colonoscopy History of esophagogastroduodenoscopy (EGD) History of herniorrhaphy RT INGUINAL History of laminectomy LUMBAR History of lobectomy of lung RT MIDDLE LOBE History of prostatectomy History of tonsillectomy History of tooth extraction Status post reverse arthroplasty of left shoulder (~05/2020) Family History Father FHx: prostate cancer Grandfather (Paternal) FHx: prostate cancer Social History Smoking Status: Former smoker Tobacco Type: Cigars Years Smoked: 50; Second Hand Exposure: No; Hx Alcohol Use: No Hx Substance Use: No Preferred Language: [place] Communication Ability: Effective Web Worker Required: No Beliefs That Will Affect Care: None marital status: Current Living Situation: Spouse Feels Safe at Home: Yes Assistive Devices: Glasses and Hearing Aid - Bilateral Review of Systems Review of Systems: All systems reviewed & are unremarkable except as noted in HPI & below Physical Exam Physical Exam: Physical Exam: Vitals signs as noted above General Appearance:Moderately built and nourished, no apparent distress Head: normocephalic, Atraumatic Eyes: normal inspection, EOMI Neck: supple, Trachea midline Respiratory/Chest: Normal breath sounds, CTA, No accessory muscle use Cardiovascular: S1, S2, No murmur Abdomen/GI:Soft, Non tender, Bowel sounds present Extremities/Musculoskelatal:normal inspection, + B/L LE 1-2+ edema Neurologic/Psych:AAOX3, + slurred speech(not baseline as per daughter), no facial deformity, EOMI, left upper extremity -strength not performed, given recent surgery Skin: normal color, warm Results & Data Results & Data ([facility]) Vital Signs (Past 12 Hours) Vital Signs Temp Pulse Resp BP Pulse Ox 08/20/20 13:48 96 08/20/20 13:10 36.9 C 79 18 154/77 H 96 Laboratory Results Short CBC 08/20/20 Range/Units 13:37 WBC 8.29 (4.8-10.8) K/uL Hgb 12.4 L (14.0-18.0) g/dL Hct 37.6 L (42-52) % Plt Count 221 (130-400) K/uL BMP 08/20/20 13:37 Sodium 139 Potassium 4.0 Chloride 108 H Carbon Dioxide 26 BUN 21 H Creatinine 1.30 Glucose 102 H Calcium 8.6 Cardiac Enzymes 08/20/20 Range/Units 13:37 Troponin I < 0.015 (0-0.045) ng/ml Liver Function 08/20/20 Range/Units 13:37 Total Bilirubin 0.4 (0.2-1) mg/dl AST 13 L (15-37) U/L ALT 19 (12-78) U/L Alkaline Phosphatase 85 (45-117) U/L Albumin 3.4 (3.4-5.0) gm/dl Diagnostic Findings MRI Brain: Findings are consistent with an acute to subacute lacunar infarct in the right viraj. No additional foci of acute ischemia are identified. There is no hemorrhage or enhancing mass. Left sphenoid sinus disease as above. CXR: 1. No acute process. 2. Emphysema. 3. The subtle right upper lobe opacities described on the CTA of the neck study of same day are not appreciable by radiography. Head CTA: 1. 80% diameter stenosis of the proximal M1 segment of the right middle cerebral artery 2. Minor fusiform dilatation of the distal right vertebral artery measuring 5 mm in diameter 3. No evidence of aneurysm 4. Left sphenoid sinus air-fluid level Neck CTA: 1. Mild mixed plaque of the carotid bulbs results in less than 50% luminal narrowing of the bilateral proximal internal carotid arteries. 2. Mild fusiform dilation of the V4 segment right vertebral artery, 5 mm. 3. Subtle tree-in-bud and groundglass opacities of the right upper lobe are suggestive of infectious or inflammatory bronchiolitis/pneumonitis. 4. Emphysema. ECG Additional Comments: EKG Normal sinus rhythm, QTC 416, nonspecific T wave changes.
--- NOTE | 2020-08-20 14:54 | XRay Report ---
XR chest 1V portable HISTORY: 80 years-old Male abnormal CT eval for pna follow-up study in a patient with possible pneum onia. COMPARISON: CTA of the neck 08/20/2020 TECHNIQUE: Portable AP view of the chest FINDINGS: Cardiac silhouette is upper limits of normal in size. There is unchanged moderate hemidiaphragmatic e levation. Emphysema. No pneumothorax, large pleural effusion, overt pulmonary edema or airspace conso lidation typical for pneumonia. Chronic blunting of the costophrenic angles. Degenerative changes of the spine and right shoulder. Reverse left shoulder total joint arthroplasty. IMPRESSION: 1. No acute process. 2. Emphysema. 3. The subtle right upper lobe opacities described on the CTA of the neck study of same day are not a ppreciable by radiography. ACT 112: Negative or not required by law. The above report was generated using voice recognition software. It may contain grammatical, syntax o r spelling errors. Electronically signed by: Richard Hi M.D. 08/20/2020 2:52 PM
[2020-08-20] MEDS ORDERED: GADOBUTROL 65ML VIAL IV ONE (16:18)
--- NOTE | 2020-08-20 16:35 | Magnetic Resonance Report ---
MRI OF THE BRAIN COMBO CLINICAL HISTORY: Ataxia. Lung cancer. COMPARISON STUDY: CT of the brain dated 08/20/2020. TECHNIQUE: MRI of the brain was performed utilizing various T1 and T2-weighted sequences in the axial , sagittal, and coronal planes. Contrast-enhanced sequences were acquired following the administratio n of 6.5 cc of Gadavist. FINDINGS: Brain parenchyma: There is a 13 mm focus of restricted diffusion identified in the right viraj consist ent with acute to subacute ischemia. No additional foci of acute ischemia are identified. There is ag e-related involutional change noting moderate subcortical and periventricular microangiopathic diseas e. There is no hemorrhage or mass effect. No enhancing mass lesion is identified on the postcontrast images. Barr-white matter differentiation is preserved. No extra-axial fluid collection is seen. The cerebellar tonsils are normal in configuration. Ventricles, sulci, and cisterns: Prominent secondary to involutional change. Pituitary and sella: Unremarkable. Intracranial vasculature: Normal flow voids are maintained at the skull base. Orbits: The bony orbits are grossly intact. Orbital contents are normal in appearance noting bilatera l ocular lens implants. Sinuses and mastoids: There is subtotal opacification of left sphenoid sinus. The remaining paranasal sinuses are clear. The mastoid air cells are well pneumatized. Calvarium: Unremarkable. Cervical cord: Partially visualized cervical spinal cord is normal in morphology and signal intensity . IMPRESSION: 1. Findings are consistent with an acute to subacute lacunar infarct in the right viraj. 2. No additional foci of acute ischemia are identified. 3. There is no hemorrhage or enhancing mass. 4. Left sphenoid sinus disease as above. ACT 112: Negative or not required by law. Electronically signed by: Chetan Ramírez M.D. 08/20/2020 4:33 PM
[2020-08-20] MEDS ORDERED: amLODIPine BESYLATE 5 MG TAB PO SCH ×2 (21:15→23:58)
--- NOTE | 2020-08-20 21:18 | Consultation Report ---
DATE OF CONSULTATION: 08/20/[address] Lopez called me this evening to discuss this patient's case. His history is reviewed. He is an 80-year-old with a history of lung cancer, status post lobectomy, prostate cancer, status post resection, pulmonary embolism, on chronic anticoagulation, on Coumadin, hypertension, reflux, migraine, generalized anxiety, kidney disease, presented with slurred speech and difficulty walking this morning. Last well known at 1:00 a.m. When he woke up, he had slurred speech, word finding difficulty and trouble with walking and balance issues with a mild occipital headache. The patient has chronic vertigo and while in the CT, had a transient episode of vertigo. Stroke neurology was contacted at [place] and he was thought not to be a candidate for TPA or endovascular intervention. His MRI of the brain, which I have reviewed, shows a 13 mm right pontine infarction. There is no evidence of hemorrhagic transformation. CT of the head was said to show a 5 mm distal right vertebral artery fusiform dilatation. The images are available and the report is 80% diameter stenosis of the proximal M1 segment of the right MCA, minor fusiform dilatation of the distal right vertebral artery measuring 5 mm in diameter, no evidence of aneurysm, left sphenoid sinus air fluid level. There is mild mixed plaque of the carotid bulbs resulting in less than 50% narrowing of the proximal internal carotid arteries. The patient's lab data is notable for an H and H of 12.4/36, platelet count of 221. INR 3.1, BUN of 21, glucose of 102. The patient's vital signs were notable for him being afebrile. Initially, he was mildly hypertensive. Current vitals; pulse is 77, respirations 17, blood pressure 134/91. The patient's exam is notable for slurred speech. Left upper extremity strength was not performed given recent shoulder surgery. CLINICAL IMPRESSION: This patient has a small vessel right pontine infarction. There is mild fusiform dilatation of the right vertebral artery. I agree with holding the patient's anticoagulant overnight and continuing antiplatelet therapy with aspirin. Repeat a CT of the head in the morning to evaluate for hemorrhagic transformation. If the patient is clinically stable, at that point likely we will resume therapeutic anticoagulation with a goal INR of 2-3. I would recommend if the patient is not currently on statin that he be started on a statin with a goal LDL of 70 or less. Mild permissive hypertension is reasonable. I do not see an urgent need for neurosurgical assessment. The right middle cerebral artery stenosis is not responsible for this patient's infarct. As an outpatient, the patient can see vascular neurosurgery. We will follow with you.
[2020-08-20] MEDS: GABAPENTIN 100 MG CAP PO SCH (21:29)
[2020-08-20] MEDS: ACETAMINOPHEN 325 MG TAB PO PRN (21:30)
[2020-08-20] MEDS ORDERED: POLYETHYLENE (MIRALAX) 17 GM PACK PO PRN ×2 (23:58)
[2020-08-20] MEDS ORDERED: ONDANSETRON INJ 2 MG/ML 2 ML VIAL IV PRN (23:58)
[2020-08-20] MEDS ORDERED: PHARMACIST DISCHARGE MED REC CONSULT PRN (23:58)
[2020-08-20] MEDS ORDERED: MECLIZINE 12.5 MG TAB PO PRN (23:58)
[2020-08-20] MEDS ORDERED: ALBUTEROL HFA 8 GM INHALER INH PRN (23:58)
[2020-08-21] MEDS: MELATONIN 3 MG TAB PO PRN ×2 (01:42→20:50)
[2020-08-21] MEDS: CHOLECALCIFEROL 1,000 UNITS 25 MCG TAB PO SCH ×2 (01:43→20:51)
[2020-08-21 05:53] LABS: INR 2.5 (0.9-1.1); Prothrombin Time 24.8 Seconds (9.0-12.0)
[2020-08-21 05:58] LABS: Basophils # (auto) 0.03 K/uL (0-0.2); Basophils % (auto) 0.4 %; Eosinophils # (auto) 0.33 K/uL (0-0.5); Eosinophils % (auto) 4.7 %; Hematocrit (blood only) 37.9 % (42-52); Hemoglobin 12.5 g/dL (14.0-18.0); Immature Granulocytes # (auto) 0.02 K/uL (0.00-0.02); Immature Granulocytes % (auto) 0.3 %; Lymphocytes # (auto) 2.37 K/uL (1.2-3.4); Lymphocytes % (auto) 33.9 %; Mean Corpuscular Hemoglobin 28.9 pg (25-34); Mean Corpuscular Volume 87.5 fL (80-100); Mean Platelet Volume 9.5 fL (7.4-10.4); Monocytes # (auto) 0.61 K/uL (0.11-0.59); Monocytes % (auto) 8.7 %; Neutrophils # (auto) 3.63 K/uL (1.4-6.5); Platelet Count 238 K/uL (130-400); RDW Standard Deviation 45.3 fL (36.4-46.3); Red Blood Count 4.33 M/uL (4.7-6.1); White Blood Count 6.99 K/uL (4.8-10.8)
--- NOTE | 2020-08-21 06:18 | Electrocardiogram Report ---
Test Reason : Blood Pressure : / mmHG Vent. Rate : 073 BPM Atrial Rate : 073 BPM P-R Int : 164 ms QRS Dur : 082 ms QT Int : 378 ms P-R-T Axes : 057 -01 029 degrees QTc Int : 416 ms Normal sinus rhythm Normal ECG When compared with ECG of 04-JUL-2020 14:27, Nonspecific T wave abnormality has replaced inverted T waves in Inferior leads Confirmed by Sergei Luther ([id number]) on 08/21/2020 6:18:03 AM Referred By: REFERRED SELF Confirmed By:Sergei Luther
[2020-08-21 06:22] LABS: BUN Creatinine Ratio 12.7 (10-20); Blood Urea Nitrogen 17 mg/dl (7-18); Carbon Dioxide 28 mmol/L (21-32); Chloride 107 mmol/L (98-107); Creatinine Clr Calc Pharmacy 35.3 ml/min; Est GFR (African American) 58.9; Est GFR (Non-African American) 50.8; Glucose 87 mg/dl (70-99); Magnesium 2.1 mg/dl (1.8-2.4); Potassium 3.5 mmol/L (3.5-5.1); Sodium 139 mmol/L (136-145)
[2020-08-21 06:25] LABS: Estimated Average Glucose 117 mg/dl; Hemoglobin A1C 5.7 % (4.5-5.6)
[2020-08-21 06:28] LABS: Chol HDL Ratio 4; Cholesterol 183 mg/dl (0-200); HDL Cholesterol 44 mg/dl; LDL Cholesterol Calculated 110 mg/dl; Triglycerides 146 mg/dl (0-150); Troponin I < 0.015 ng/ml (0-0.045); VLDL Cholesterol 29 mg/dl
[2020-08-21] MEDS ORDERED: carvediloL 6.25 MG TAB PO SCH (09:00)
[2020-08-21] MEDS ORDERED: ASPIRIN 81 MG ECTAB PO SCH ×2 (09:00)
[2020-08-21] MEDS ORDERED: amLODIPine BESYLATE 5 MG TAB PO SCH (09:00)
[2020-08-21] MEDS: ACETAMINOPHEN 325 MG TAB PO PRN (09:02)
[2020-08-21] MEDS: ATORVASTATIN 40 MG TAB PO SCH (09:03)
[2020-08-21] MEDS: CITALOPRAM 20 MG TAB PO SCH (09:03)
[2020-08-21] MEDS: ASPIRIN 81 MG ECTAB PO SCH (09:03)
[2020-08-21] MEDS: PANTOprazole 40 MG TAB PO SCH (09:03)
[2020-08-21] MEDS: GABAPENTIN 100 MG CAP PO SCH ×2 (09:03→20:51)
[2020-08-21] MEDS ORDERED: oxyCODONE HCL IR 5 MG TAB (IMMEDIATE RELEASE) PO PRN (09:59)
--- NOTE | 2020-08-21 10:38 | CT Scan Report ---
CT SCAN OF THE BRAIN WITHOUT IV CONTRAST CLINICAL HISTORY: Follow-up stroke. COMPARISON STUDY: CT and MRI of the brain dated 08/20/2020. TECHNIQUE: Unenhanced axial CT scan of the brain is performed from the vertex to the skull base. A do se lowering technique was utilized adhering to the principles of ALARA. CT DOSE: 614.27 mGy.cm FINDINGS: Brain parenchyma: There are age-related involutional changes noting moderate confluent subcortical a nd periventricular microangiopathic change. There is no hemorrhage, mass effect, or evidence of acute territorial ischemia by CT criteria. Brar-white matter differentiation is preserved. No extra-axial fluid collection is seen. Mineralization is noted in the basal ganglia. Ventricles, sulci, cisterns: Prominent secondary to involutional change. Intracranial vasculature: There is atherosclerotic calcification of the cavernous carotid and vertebr al arteries. Calvarium: Unremarkable. Sinuses and mastoids: There is subtotal opacification of left sphenoid sinus. The remaining visualize d paranasal sinuses are clear. The mastoid air cells are well pneumatized. Orbits: The bony orbits are grossly intact. There are bilateral ocular lens implants. IMPRESSION: 1. There is no hemorrhage, mass effect, or evidence of acute territorial ischemia by CT criteria. 2. The lacunar infarct of the viraj seen by MRI was not appreciated by CT. ACT 112: Negative or not required by law. Electronically signed by: Chetan Ramírez M.D. 08/21/2020 10:37 AM
[2020-08-21] MEDS: ACETAMINOPHEN 500 MG TAB PO SCH ×2 (11:01→18:40)
[2020-08-21] MEDS ORDERED: SODIUM CHLORIDE 0.9% 500 ML IV SCH (12:30)
--- NOTE | 2020-08-21 12:38 | Hospitalist Progress Note ---
Date of Service August 21, 2020 Assessment & Plan (1) Acute cerebrovascular accident: Acute stroke. Cont ASA and warfarin. Stroke laert patient but didn't receive tpA. Started Lipitor. PT/OT consult. Allow permissive HTN. Repeat head CT did not show evidence of hemorrhagic transformation on coumadin. Will restart warfarin now. (2) History of pulmonary embolism: On chronic anticoagulation with Coumadin (3) Adverse drug event: apparent reaction to oxycodone today (5mg) where he became hyptensive and bradycardic. NArcan was given along with fluids and he was feeling somewhat better. (4) DVT prophylaxis: warfarin Full Dispo-to in home in am. Need one night since unresponsive event today. Karli Manning [facility] and Anticipated Discharge Date Admission Date: August 20, 2020 Subjective CODE blue called this morning when patient became apneic and looked to stop breathing He was found unresponsive and not breathing without a pulse Chest compressions were started by nursing Oxycodone noted to have been given 1 hour prior 5mg The patient had just eaten lunch Tele review shows sinus bradycardia into the 30s without any pauses, and he is noted to be on carvedilol 6.25mg PO daily which was given this morning. Current vitals are 107/59, 62, and he is oxygenating well on 2L NC which was placed during the episode Patient states that he is feeling nauseous He was given narcan and a small fluid bolus and began to feel better (SBP reported as 80-90 at one point by the nurse) CXR performed for a report of shortness of breath (lungs CTAB) Denied feeling his throat close or other allergy symptoms Reviewed telemetry and outpatient record in detail and there was no significant cardiac history and no pauses. Spoke with Cards but decided against a formal consult at this time. Cont to hold coreg for now I updated his daughter, Zahra, by phone and discussed the MRI results from yesterday with her Allergy profile was also updated. Review of Systems Review of Systems: Pt current reports: +nausea improving +GONZALEZ in the front over left eye-improving +dizziness after recently changing position and having hypotension in setting of acute stroke. +SOB At lease 10 other systems were reviewed and negative. Physical Exam Physical Exam: CONSTITUTIONAL: WNWD, vitals as above, generally ill-appearing EYES: EOMI bilaterally, pupils are round and equal bilaterally, normal conjunctivae, no scleral icterus ENT: external ear and nose normal, oropharynx clear, mucous membranes are moist. RESPIRATORY: clear to auscultation bilaterally, no crackles, rales or wheezes, normal respiratory effort CARDIOVASCULAR: regular rate and rhythm, S1 and 2 heard without murmurs, gallops or rubs, no JVD, no peripheral edema GASTROINTESTINAL: soft, nontender, nondistended, no guarding. MUSCULOSKELETAL: strength 5/5 throughout, head is normocephalic and atraumatic SKIN: warm and diaphoretic, no rashes NEUROLOGIC: patellar DTRs 2+ bilat. No facial palsy, no dysarthria. CN 2-12 grossly intact, no sensory deficit, normal cognition, normal speech, no tremor. No gross focal neurologic deficits. PSYCHIATRIC: alert cooperative and oriented to person, place and time. Results & Data Results & Data ([facility]) Vital Signs (Past 12 Hours) Vital Signs Temp Pulse Pulse Pulse Resp BP Pulse Ox 08/21/20 11:40 72 08/21/20 10:52 36.9 C 77 18 133/84 98 08/21/20 10:23 36.5 C 74 17 131/73 94 08/21/20 04:19 36.9 C 85 18 141/88 H 95 08/21/20 01:07 36.8 C 84 18 143/69 H 96 Laboratory Results Short CBC 08/20/20 08/21/20 Range/Units 13:37 05:24 WBC 8.29 6.99 (4.8-10.8) K/uL Hgb 12.4 L 12.5 L (14.0-18.0) g/dL Hct 37.6 L 37.9 L (42-52) % Plt Count 221 238 (130-400) K/uL BMP 08/20/20 08/21/20 13:37 05:24 Sodium 139 139 Potassium 4.0 3.5 Chloride 108 H 107 Carbon Dioxide 26 28 BUN 21 H 17 Creatinine 1.30 1.30 Glucose 102 H 87 Calcium 8.6 9.0 Cardiac Enzymes 08/20/20 08/20/20 08/21/20 Range/Units 13:37 22:04 05:24 Troponin I < 0.015 < 0.015 < 0.015 (0-0.045) ng/ml Liver Function 08/20/20 Range/Units 13:37 Total Bilirubin 0.4 (0.2-1) mg/dl AST 13 L (15-37) U/L ALT 19 (12-78) U/L Alkaline Phosphatase 85 (45-117) U/L Albumin 3.4 (3.4-5.0) gm/dl Diagnostic Findings [facility], [id number] XRay Report Patient: BUCK BATISTA Date: 08/20/20MR#: [id number]: 1946 [address] STEVENSONAcct ID:[id number]: Date: [address] Zip: [place], [place] [address]Wxz: 80Location: 1ESex: MRoom/Bed: E533-6Wbi Phy: Karli Manning, KRISTINAiagnosis: UNSTEADY,WEAKNESS,SLURRED SPEECHPri Phy: Ranulfo Schumacher, DOService Date: 08/21/20Fam Phy:Interpreting Phy: Laci Brownlee MDAdmit Phy: Yonatan Lopez MD Ordering Phy: Karli Manning DO cc: ~ XR chest 1V portable CLINICAL HISTORY: SOB COMPARISON STUDY: 08/20/2020 FINDINGS: The heart is the upper limits of normal in size. There is no failure. There is no focal pulmonary consolidation. There are no pleural effusions. There is minor basilar atelectasis. There are postsurgical changes of a reverse total left shoulder arthroplasty.[ IMPRESSION: No active disease in the chest. ACT 112: Negative or not required by law. Electronically signed by: Laci Brownlee M.D. 08/21/2020 12:53 PM Dictated: 08/21/20 1252Transcribed: 08/21/20 1252 [facility], [id number] CT Scan Report Patient: BUCK BATISTA Date: 08/20/20#: [id number]: 1947 [address] STEVENSONAcct ID:[id number]: Date: 1940City Zip: [place], [place] [address]Czn: 80Location: EDINPSex: MRoom/Bed: EDIN 1-2Att Phy: Karli Manning, DODiagnosis: UNSTEADY,WEAKNESS,SLURRED SPEECHPri Phy: Ranulfo Schumacher, DOService Date: 08/21/20Fam Phy:Interpreting Phy: Chetan Ramírez MDAdmit Phy: Yonatan Lopez MD Ordering Phy: Yonatan Lopez MD cc: ~ CT SCAN OF THE BRAIN WITHOUT IV CONTRAST CLINICAL HISTORY: Follow-up stroke. COMPARISON STUDY: CT and MRI of the brain dated 08/20/2020. TECHNIQUE: Unenhanced axial CT scan of the brain is performed from the vertex to the skull base. A dose lowering technique was utilized adhering to the principles of ALARA. CT DOSE: 614.27 mGy.cm FINDINGS: Brain parenchyma: There are age-related involutional changes noting moderate confluent subcortical and periventricular microangiopathic change. There is no hemorrhage, mass effect, or evidence of acute territorial ischemia by CT criteria. Brar-white matter differentiation is preserved. No extra-axial fluid collection is seen. Mineralization is noted in the basal ganglia. Ventricles, sulci, cisterns: Prominent secondary to involutional change. Intracranial vasculature: There is atherosclerotic calcification of the cavernous carotid and vertebral arteries. Calvarium: Unremarkable. Sinuses and mastoids: There is subtotal opacification of left sphenoid sinus. The remaining visualized paranasal sinuses are clear. The mastoid air cells are well pneumatized. Orbits: The bony orbits are grossly intact. There are bilateral ocular lens implants. IMPRESSION: 1. There is no hemorrhage, mass effect, or evidence of acute territorial ischemia by CT criteria. 2. The lacunar infarct of the viraj seen by MRI was not appreciated by CT. ACT 112: Negative or not required by law. Electronically signed by: Chetan Ramírez M.D. 08/21/2020 10:37 AM Dictated: 08/21/20 1034Transcribed: 08/21/20 1034 Medications Administered Current Inpatient Medications Acetaminophen (Acetaminophen 500 Mg Tab) 1,000 mg PO Q8H [facility] Stop: 09/20/20 09:59 Last Admin: 08/21/20 11:01 Dose: 1,000 mg Documented by: Albuterol (Albuterol Hfa 8 Gm Inhaler) 2 puffs INH Q4H PRN PRN Reason: Shortness Of Breath Or Wheezing Stop: 09/19/20 23:57 Amlodipine Besylate (Amlodipine Besylate 5 Mg Tab) [facility] [place]: 09/20/20 08:59 Last Admin: 08/21/20 09:03 Dose: 2.5 mg Documented by: Aspirin (Aspirin 81 Mg Ectab) 81 mg PO QAM [facility] Stop: 09/20/20 08:59 Last Admin: 08/21/20 09:03 Dose: 81 mg Documented by: Atorvastatin Calcium (Atorvastatin 40 Mg Tab) 40 mg PO QAM [facility] Stop: 09/20/20 08:59 Last Admin: 08/21/20 09:03 Dose: 40 mg Documented by: Carvedilol (Carvedilol 6.25 Mg Tab) 6.25 mg PO QAM [facility] Stop: 09/20/20 08:59 Last Admin: 08/21/20 09:03 Dose: 6.25 mg Documented by: Citalopram Hydrobromide (Citalopram 20 Mg Tab) 20 mg PO QAM [facility] Stop: 09/20/20 08:59 Last Admin: 08/21/20 09:03 Dose: 20 mg Documented by: Gabapentin (Gabapentin 100 Mg Cap) 100 mg PO BID [facility] Stop: 09/19/20 21:12 Last Admin: 08/21/20 09:03 Dose: 100 mg Documented by: Sodium Chloride (Nss) 500 mls @ 125 mls/hr IV .Q4H [facility] Stop: 08/21/20 16:29 Last Admin: 08/21/20 12:48 Dose: 999 mls/hr Documented by: Melatonin (Melatonin 3 Mg Tab) 3 mg PO HS PRN PRN Reason: Sleep Stop: 09/20/20 00:56 Last Admin: 08/21/20 01:42 Dose: 3 mg Documented by: Miscellaneous Information (Pharmacist Discharge Med Rec Consult) 1 ea N/A UD PRN PRN Reason: Consult Stop: 09/19/20 23:57 Ondansetron HCl (Ondansetron Inj 2 Mg/Ml 2 Ml Vial) 4 mg IV Q6H PRN PRN Reason: Nausea Stop: 09/19/20 23:57 Pantoprazole Sodium (Pantoprazole 40 Mg Tab) [facility] [place]: 09/20/20 08:59 Last Admin: 08/21/20 09:03 Dose: 40 mg Documented by: Polyethylene Glycol (Polyethylene (Miralax) 17 Gm Pack) 17 gm PO DAILY PRN PRN Reason: Constipation Stop: 09/19/20 23:57 Vitamin D (Cholecalciferol 1,000 Units 25 Mcg Tab) 5,000 units PO [facility] Stop: 09/20/20 00:14 Last Admin: 08/21/20 01:43 Dose: 5,000 units Documented by:
[2020-08-21] MEDS ORDERED: ATROPINE SULFATE 0.1 MG/ML 10ML SYR IV ONE (12:43)
[2020-08-21] MEDS ORDERED: NALOXONE HCL 0.4 MG/1 ML VIAL/CARP ONE (12:44)
[2020-08-21] MEDS ORDERED: PROMETHAZINE HCL 12.5 MG in SODIUM CHLORIDE 0.9% 50 ML IV ONE (12:45)
[2020-08-21] MEDS ORDERED: NALOXONE HCL 0.4 MG/1 ML VIAL/CARP IV ONE (12:47)
--- NOTE | 2020-08-21 12:55 | XRay Report ---
XR chest 1V portable CLINICAL HISTORY: SOB COMPARISON STUDY: 08/20/2020 FINDINGS: The heart is the upper limits of normal in size. There is no failure. There is no focal pul monary consolidation. There are no pleural effusions. There is minor basilar atelectasis. There are p ostsurgical changes of a reverse total left shoulder arthroplasty.[ IMPRESSION: No active disease in the chest. ACT 112: Negative or not required by law. Electronically signed by: Laci Brownlee M.D. 08/21/2020 12:53 PM
--- NOTE | 2020-08-21 15:54 | Neurology Consultation ---
Date of Consultation August 21, 2020 Assessment & Plan (1) Acute cerebrovascular accident: 1. MRI with lacunar infarct in right viraj 2. CTA with with significant stenosis RMCA and plaque throughout- no intervention at this time optimize platlet therapy 3. aspirin 81 mg daily 4. INR- 2.0-3.0 therapeutic for history of PE 5. optimize HTN HLD DM LDL <70 6. headache treatment with tylenol only- event to oxycodone 7. CT head- repeated to r/o hemorrhagic conversion and after cardiac event- no acute findings 8. TTE - r/o clot other abnormalities 9. PT/OT speech for discharge needs 10. follow up with neurology in 4-6 weeks- Florencia SHORT Present on Admission?: Yes (2) CKD (chronic kidney disease) stage 3, GFR 30-59 ml/min: Present on Admission?: Yes (3) Supratherapeutic INR: Present on Admission?: Yes Supervising Physician Co-Signing Physician Notes I have seen and discussed above patient with Dr Florencia Ramsey, neurology pt seen and examined.Both CTs from today reviewed, R pontine infarct, suspect small vessel vascular disease, agree with asa 81 mg, statin May resume coumadin, pt on for PE Noobvious cardiac source and stroke not likely embolic but consider Zio monitor as outpt if coumadin is not lifetime. Elective neurovascular eval for r fusiform vertebral artery. A possible but not likely source for this stroke. reviewed episode of LOCwith pt, he had a bout of typical positional vertigo, than loc with HR in 30s. no new neurodeficits, confusion, incontinence? pt vagal related to vertigo. WILLIE Ramsey, History of Present Illness Reason for Consultation: Stroke like symptoms Requesting Physician: Karli Manning DO Attending Physician: Karli Manning DO History of Present Illness Mor is an 80 year old with PMH lung cancer, status post lobectomy, prostate cancer, status post resection, pulmonary embolism on Coumadin, HTN, reflux, migraine, STACEY, CKD III. He presented with slurred speech and difficulty walking. He woke up, he had slurred speech, word finding difficulty and trouble with walking and balance issues with a mild occipital headache which he has a history of migraines and vertigo. Stroke [place] [facility] [place] he was not a candidate for tPa or endovascular intervention. He was found to have 13 mm right pontine infarction. CTA showed a 5 mm distal right vertebral artery fusiform dilatation and an 80% diameter stenosis of the proximal M1 segment of the right MCA, minor fusiform dilatation of the distal right vertebral artery measuring 5 mm.mixed plaque of the carotid bulbs resulting in less than 50% narrowing of the proximal internal carotid arteries. He had an event which CODE hector called this morning when he became apneic and looked to stop breathing found unresponsive without a pulse chest compressions were started by nursing Oxycodone noted to have been given 1 hour prior 5mg, EKG showed sinus bradycardia into the 30s without any pauses. He was given narcan and a bolus of fluid and back to his baseline. Currently his only complaint is a headache which he has been given tylenol wit hout relief. denies CP, SOB, abdominal pain, one sided weakness numbness tingling. Allergies Allergy/AdvReac Type Severity Reaction Status Date / Time oxycodone AdvReac Severe became Verified 08/21/20 12:51 apneic and bradycardic Home Medications Medication Instructions Recorded Confirmed Type citalopram 20 mg PO QAM 08/31/18 08/20/20 History pantoprazole 40 mg PO QAM 08/31/18 08/20/20 History carvedilol 6.25 mg PO QAM 03/09/20 08/20/20 History cholecalciferol (vitamin D3) 125 mcg PO HS 03/09/20 08/20/20 History [Vitamin D3] gabapentin 100 mg PO BID 03/09/20 08/20/20 History multivitamin 1 tab PO HS 03/09/20 08/20/20 History meclizine 12.5 mg PO TID PRN 03/12/20 08/20/20 History amlodipine 2.5 mg PO QAM 05/16/20 08/20/20 History aspirin 81 mg PO QAM 07/04/20 08/20/20 History warfarin 2.5 mg PO .MO@HS 07/04/20 08/20/20 History warfarin 5 mg PO .SUTUWETHFRSA@HS 07/04/20 08/20/20 History albuterol sulfate 1 - 2 puff INHALATION DIRECTED 07/07/20 08/20/20 History PRN polyethylene glycol 3350 [Miralax] 17 g PO DAILY PRN #30 ea 07/09/20 08/20/20 Rx Patient History Medical History Asthma Using albuterol inhaler TID now since PEs. Previously wasn't using inhaler at all. Cancer LUNG AND PROSTATE CANCER, both treated surgically Degenerative disc disease GERD (gastroesophageal reflux disease) HTN (hypertension) Migraine HX OF On anticoagulant therapy Osteoarthritis Pulmonary embolism hospitalized 03/12/2020-03/15/2020 [facility] w/ BL PE; unk etiology; on coumadin Surgical History History of adenoidectomy History of carpal tunnel release RT X 2 LEFT X 3 History of cataract surgery LEFT/RIGHT History of colonoscopy History of esophagogastroduodenoscopy (EGD) History of herniorrhaphy RT INGUINAL History of laminectomy LUMBAR History of lobectomy of lung RT MIDDLE LOBE History of prostatectomy History of tonsillectomy History of tooth extraction Status post reverse arthroplasty of left shoulder (~05/2020) Family History Father FHx: prostate cancer Grandfather (Paternal) FHx: prostate cancer Social History Smoking Status: Former smoker Tobacco Type: Cigars Years Smoked: 50; Second Hand Exposure: No; Hx Alcohol Use: No Hx Substance Use: No Preferred Language: Armenian Communication Ability: Effective Discharge Coordinator Required: No Beliefs That Will Affect Care: None marital status: Current Living Situation: Spouse Other Information That Helps Us Care for You: No Feels Safe at Home: Yes Safety Concerns: Feels Safe At This Time Assistive Devices: Glasses, Hearing Aid - Left and Hearing Aid - Right Review of Systems Review of Systems: All systems reviewed & are unremarkable except as noted in HPI & below Physical Exam Physical Exam: Physical Exam: Constitutional: appearance nourished, healthy and normal Ears, Nose, Mouth and Throat: mucous membranes moist, no injection and skin normal, eyes normal Cardiovascular: normal S-1 and S-2 and regular rate and rhythm Respiratory: course breath sounds Musculoskeletal: no peripheral edema and good distal pulses Skin: no stigmata of neurocutaneous disease noted and normal and intact Eyes: extraocular muscles intact (EOMI) and pupils equal, round and reactive to light (PERRL) NEUROLOGIC EXAMINATION: Mental status: Alert and interactive Oriented to person, identifies buttons, thumb, stethoscope Speech fluent with no evidence of aphasia Cranial Nerves slight flattening left nasolabial fold Reflexes: Deep tendon reflexes were symmetrical and graded 2/5. down going toes Sensory: light touch intact Coordination: finger to nose no bi pass Gait/Stance: Posture normal lying in bed Motor: Negative for pronator drift of out stretched arms with eyes closed. 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 Abnormal lab results 08/21/20 08/21/20 08/21/20 Range/Units 05:24 05:24 05:24 RBC 4.33 L (4.7-6.1) M/uL Hgb 12.5 L (14.0-18.0) g/dL Hct 37.9 L (42-52) % [place] # (Auto) 0.61 H (0.11-0.59) K/uL PT 24.8 H (9.0-12.0) Seconds INR 2.5 H (0.9-1.1) POC Glucose (70-99) mg/dl Hemoglobin A1c 5.7 H (4.5-5.6) % 08/21/20 Range/Units 12:37 RBC (4.7-6.1) M/uL Hgb (14.0-18.0) g/dL Hct (42-52) % [place] # (Auto) (0.11-0.59) K/uL PT (9.0-12.0) Seconds INR (0.9-1.1) POC Glucose 111 H (70-99) mg/dl Hemoglobin A1c (4.5-5.6) % Diagnostic Findings MRI brain- Findings are consistent with an acute to subacute lacunar infarct in the right viraj. No additional foci of acute ischemia are identified. There is no hemorrhage or enhancing mass. Left sphenoid sinus disease as above. CTA neck-. Mild mixed plaque of the carotid bulbs results in less than 50% luminal narrowing of the bilateral proximal internal carotid arteries. Mild fusiform dilation of the V4 segment right vertebral artery, 5 mm. Subtle tree-in-bud and groundglass opacities of the right upper lobe are suggestive of infectious or inflammatory bronchiolitis/pneumonitis. Emphysema. CTA head-80% diameter stenosis of the proximal M1 segment of the right middle cerebral artery Minor fusiform dilatation of the distal right vertebral artery measuring 5 mm in diameter No evidence of aneurysm Left sphenoid sinus air- fluid level (1) CKD (chronic kidney disease) stage 3, GFR 30-59 ml/min Chronic kidney disease stage 3 subtype: unspecified whether 3a or 3b Qualified Code(s): N18.30 - Chronic kidney disease, stage 3 unspecified
--- NOTE | 2020-08-21 16:18 | CT Scan Report ---
CT SCAN OF THE BRAIN WITHOUT IV CONTRAST CLINICAL HISTORY: Follow-up stroke. Dizziness. Nausea. COMPARISON STUDY: CT of the brain performed earlier the same day 08/21/2020. CT and MRI of the brain dated 08/20/2020. TECHNIQUE: Unenhanced axial CT scan of the brain is performed from the vertex to the skull base. A do se lowering technique was utilized adhering to the principles of ALARA. CT DOSE: 614.27 mGy.cm FINDINGS: Brain parenchyma: There are age-related involutional changes noting moderate confluent subcortical a nd periventricular microangiopathic change. There is no hemorrhage, mass effect, or evidence of acute territorial ischemia by CT criteria. Brar-white matter differentiation is preserved. No extra-axial fluid collection is seen. Mineralization is noted in the basal ganglia. Ventricles, sulci, cisterns: Prominent secondary to involutional change. Intracranial vasculature: There is atherosclerotic calcification of the cavernous carotid and vertebr al arteries. Calvarium: Unremarkable. Sinuses and mastoids: There is subtotal opacification of left sphenoid sinus. The remaining visualize d paranasal sinuses are clear. The mastoid air cells are well pneumatized. Orbits: The bony orbits are grossly intact. There are bilateral ocular lens implants. IMPRESSION: 1. There is no hemorrhage, mass effect, or evidence of acute territorial ischemia by CT criteria. No change from today's earlier examination. 2. The lacunar infarct of the viraj seen by MRI was not appreciated by CT. ACT 112: Negative or not required by law. Electronically signed by: Chetan Ramírez M.D. 08/21/2020 4:16 PM
--- NOTE | 2020-08-21 17:11 | XCELERA ---
[id number]
[2020-08-22] MEDS: ACETAMINOPHEN 500 MG TAB PO SCH ×3 (01:26→18:43)
--- NOTE | 2020-08-22 04:55 | Electrocardiogram Report ---
Test Reason : Blood Pressure : / mmHG Vent. Rate : 077 BPM Atrial Rate : 077 BPM P-R Int : 164 ms QRS Dur : 086 ms QT Int : 378 ms P-R-T Axes : 047 -01 004 degrees QTc Int : 427 ms Normal sinus rhythm Normal ECG When compared with ECG of 20-AUG-2020 13:23, No significant change was found Confirmed by Sergei Luther ([id number]) on 08/22/2020 4:55:12 AM Referred By: REFERRED SELF Confirmed By:Sergei Luther
[2020-08-22 05:06] LABS: Basophils # (auto) 0.02 K/uL (0-0.2); Basophils % (auto) 0.3 %; Eosinophils # (auto) 0.31 K/uL (0-0.5); Hematocrit (blood only) 36.1 % (42-52); Hemoglobin 11.9 g/dL (14.0-18.0); Immature Granulocytes # (auto) 0.03 K/uL (0.00-0.02); Immature Granulocytes % (auto) 0.4 %; Lymphocytes # (auto) 2.07 K/uL (1.2-3.4); Lymphocytes % (auto) 26.9 %; Mean Corpuscular Hemoglobin 28.7 pg (25-34); Mean Platelet Volume 9.2 fL (7.4-10.4); Monocytes # (auto) 0.83 K/uL (0.11-0.59); Monocytes % (auto) 10.8 %; Neutrophils # (auto) 4.43 K/uL (1.4-6.5); Neutrophils % (auto) 57.6 %; Platelet Count 200 K/uL (130-400); RDW Coefficient of Variation 13.9 % (11.5-14.5); RDW Standard Deviation 43.8 fL (36.4-46.3); Red Blood Count 4.15 M/uL (4.7-6.1); White Blood Count 7.69 K/uL (4.8-10.8)
[2020-08-22 05:15] LABS: INR 2.3 (0.9-1.1)
[2020-08-22 05:33] LABS: BUN Creatinine Ratio 14.2 (10-20); Calcium 8.8 mg/dl (8.5-10.1); Creatinine Clr Calc Pharmacy 36.4 ml/min; Est GFR (African American) 61.2; Est GFR (Non-African American) 52.8
[2020-08-22] MEDS ORDERED: ACETAMINOPHEN 1000 MG/100 ML IV IV PRN (08:17)
[2020-08-22] MEDS ORDERED: KETOROLAC TROMETHAMINE 15 MG/ML VIAL IV ONE (08:35)
[2020-08-22] MEDS: PANTOprazole 40 MG TAB PO SCH (09:20)
[2020-08-22] MEDS: CITALOPRAM 20 MG TAB PO SCH (09:20)
[2020-08-22] MEDS: ASPIRIN 81 MG ECTAB PO SCH (09:20)
[2020-08-22] MEDS: ATORVASTATIN 40 MG TAB PO SCH (09:20)
[2020-08-22] MEDS: GABAPENTIN 100 MG CAP PO SCH ×2 (09:20→20:38)
[2020-08-22] MEDS ORDERED: traMADol HCL 50 MG TABLET PO PRN (11:07)
--- NOTE | 2020-08-22 12:55 | Hospitalist Progress Note ---
Date of Service August 22, 2020 Assessment & Plan (1) Acute cerebrovascular accident: Acute stroke. Lacunar infarct right viraj with significant stenosis right MCA Echo showed: Normal LV size and systolic function with EF 65 to 70% without any wall motion abnormality and/or hypertrophy. No significant valvular abnormalities with normal RV pressure Cont ASA and warfarin. Stroke laert patient but didn't receive tpA. Started Lipitor. PT/OT consult. Allow permissive HTN. Repeat head CT did not show evidence of hemorrhagic transformation on coumadin. Warfarin restarted and the INR remains therapeutic Unsteady gait Likely secondary to stroke Continue PT and OT and follow the recommendation (2) History of pulmonary embolism: On chronic anticoagulation with Coumadin No acute symptoms and INR is therapeutic (3) Adverse drug event: apparent reaction to oxycodone today (5mg) where he became hyptensive and bradycardic. NArcan was given along with fluids and he was feeling somewhat better. As an outpatient he was on oxycodone Will not give any more oxycodone but will try Ultram for pain control Discussed with the daughter in detail (4) DVT prophylaxis: warfarin Full Admission and Anticipated Discharge Date Admission Date: August 20, 2020 Subjective 08/22/2020 The patient was seen and examined in ICU when the daughter was on line with the patient He complains to have some left shoulder pain and was getting physical therapy as an outpatient He also has had some neck pain After discussing with the patient a small dose of Toradol 1 time was given He still complains to have some unsteadiness on feet Review of Systems Review of Systems: All systems reviewed and are unremarkable except as noted below Musculoskeletal: Left shoulder pain with movement Neurologic: + unsteadiness; no paralysis, no numbness and no abnormal speech Physical Exam Physical Exam: Sitting at the edge of the bed without any apparent distress Constitutional: well developed, well nourished and + obese Eyes: PERRL, conjunctivae normal, anicteric sclerae ENMT: external ear and nose normal, oropharynx normal Neck: trachea midline, no thyromegaly Respiratory: no respiratory distress Auscultation: lungs clear to auscultation bilaterally Cardiovascular: Rate/Rhythm: regular rate and regular rhythm Heart Sounds: no murmur Gastrointestinal (Abdomen): Inspection/Auscultation: normal bowel sounds; abdomen not distended Percussion/Palpation: abdomen soft; abdomen nontender Musculoskeletal: No acute arthritis in any joint Neurologic: Alert, awake and oriented x3. No focal sensory and motor deficit appreciated Psychiatric: A+Ox3, euthymic affect Lymphatic: no cervical or axillary lymphadenopathy Results & Data Results & Data ([facility]) Vital Signs (Past 12 Hours) Vital Signs Temp Pulse Resp BP Pulse Ox Pulse Ox 08/22/20 07:00 36.6 C 77 18 125/79 96 08/22/20 03:00 36.9 C 72 17 142/71 H 97 08/22/20 02:32 96 08/22/20 02:30 86 L Laboratory Results Short CBC 08/22/20 Range/Units 04:41 WBC 7.69 (4.8-10.8) K/uL Hgb 11.9 L (14.0-18.0) g/dL Hct 36.1 L (42-52) % Plt Count 200 (130-400) K/uL BMP 08/22/20 04:41 Sodium 140 Potassium 4.0 Chloride 109 H Carbon Dioxide 30 BUN 18 Creatinine 1.26 Glucose 87 Calcium 8.8 Medications Administered Current Inpatient Medications Acetaminophen (Acetaminophen 500 Mg Tab) 1,000 mg PO Q8H [facility] Stop: 09/20/20 09:59 Last Admin: 08/22/20 09:50 Dose: 1,000 mg Documented by: Albuterol (Albuterol Hfa 8 Gm Inhaler) 2 puffs INH Q4H PRN PRN Reason: Shortness Of Breath Or Wheezing Stop: 09/19/20 23:57 Amlodipine Besylate (A[facility]odipine Besylate 5 Mg Tab) [facility] Stop: 09/20/20 08:59 Last Admin: 08/21/20 09:03 Dose: 2.5 mg Documented by: Aspirin (Aspirin 81 Mg Ectab) [facility] Stop: 09/20/20 08:59 Last Admin: 08/22/20 09:20 Dose: 81 mg Documented by: Atorvastatin Calcium (Atorvastatin 40 Mg Tab) 40 mg PO QAM [facility] Stop: 09/20/20 08:59 Last Admin: 08/22/20 09:20 Dose: 40 mg Documented by: Carvedilol (Carvedilol 6.25 Mg Tab) 6.[facility] Stop: 09/20/20 08:59 Last Admin: 08/21/20 09:03 Dose: 6.25 mg Documented by: Citalopram Hydrobromide (Citalopram 20 Mg Tab) 20 mg PO QAM [facility] Stop: 09/20/20 08:59 Last Admin: 08/22/20 09:20 Dose: 20 mg Documented by: Diclofenac Sodium (Diclofenac Sod 1% Gel 100 Gm Tube) 4 gm EXT BID [facility] Stop: 09/21/20 20:59 Gabapentin (Gabapentin 100 Mg Cap) 100 mg PO BID [facility] Stop: 09/19/20 21:12 Last Admin: 08/22/20 09:20 Dose: 100 mg Documented by: Melatonin (Melatonin 3 Mg Tab) 3 mg PO HS PRN PRN Reason: Sleep Stop: 09/20/20 00:56 Last Admin: 08/21/20 20:50 Dose: 3 mg Documented by: Miscellaneous Information (Pharmacist Discharge Med Rec Consult) 1 ea N/A UD PRN PRN Reason: Consult Stop: 09/19/20 23:57 Ondansetron HCl (Ondansetron Inj 2 Mg/Ml 2 Ml Vial) 4 mg IV Q6H PRN PRN Reason: Nausea Stop: 09/19/20 23:57 Pantoprazole Sodium (Pantoprazole 40 Mg Tab) 40 mg PO QAM [facility] Stop: 09/20/20 08:59 Last Admin: 08/22/20 09:20 Dose: 40 mg Documented by: Polyethylene Glycol (Polyethylene (Miralax) 17 Gm Pack) 17 gm PO DAILY PRN PRN Reason: Constipation Stop: 09/19/20 23:57 Tramadol HCl (Tramadol Hcl 50 Mg Tablet) 25 mg PO Q4H PRN PRN Reason: Pain Stop: 09/21/20 11:06 Vitamin D (Cholecalciferol 1,000 Units 25 Mcg Tab) 5,000 units PO HS [facility] Stop: 09/20/20 00:14 Last Admin: 08/21/20 20:51 Dose: 5,000 units Documented by: Warfarin Sodium (Warfarin Sod 2.5 Mg Tab) 2.5 mg PO Mo@2100 [facility] Stop: 09/26/20 20:59 Warfarin Sodium (Warfarin Sod 5 Mg Tab) 5 mg PO SuTuWeThFrSa@2100 [facility] Stop: 09/21/20 20:59
--- NOTE | 2020-08-22 15:31 | Neurology Progress Note ---
Date of Service August 22, 2020 Assessment & Plan (1) Acute cerebrovascular accident: 1. MRI with lacunar infarct in right viraj 2. CTA with with significant stenosis RMCA and plaque throughout- no intervention at this time optimize platelet therapy- out patient follow up with vascular if needed 3. aspirin 81 mg daily 4. INR- 2.0-3.0 therapeutic for history of PE 5. optimize HTN HLD DM LDL <70 6. headache treatment with tylenol only- event to oxycodone 7. CT head- repeated to r/o hemorrhagic conversion and after cardiac event- no acute findings 8. TTE - no ASD 9. PT/OT speech for discharge needs 10. follow up with neurology in 4-6 weeks- Florencia SHORT (2) CKD (chronic kidney disease) stage 3, GFR 30-59 ml/min: (3) Supratherapeutic INR: Admission and Anticipated Discharge Date Admission Date: August 20, 2020 Supervising Physician Co-Signing Physician Notes I have seen and discussed above patient with Dr Db Thomson, neurology Subjective Mor is an 80 year old with PMH lung cancer, status post lobectomy, prostate cancer, status post resection, pulmonary embolism on Coumadin, HTN, reflux, migraine, STACEY, CKD III. He presented with slurred speech and difficulty walking. He woke up, he had slurred speech, word finding difficulty and trouble with walking and balance issues with a mild occipital headache which he has a history of migraines and vertigo. Stroke alert was called to [facility] but he was not a candidate for tPa or endovascular intervention. He was found to have 13 mm right pontine infarction. CTA showed a 5 mm distal right vertebral artery fusiform dilatation and an 80% diameter stenosis of the proximal M1 segment of the right MCA, minor fusiform dilatation of the distal right vertebral artery measuring 5 mm.mixed plaque of the carotid bulbs resulting in less than 50% narrowing of the proximal internal carotid arteries. He had an event which CODE hector called this morning when he became apneic and looked to stop breathing found unresponsive without a pulse chest compressions were started by nursing Oxycodone noted to have been given 1 hour prior 5mg, EKG showed sinus bradycardia into the 30s without any pauses. He was given narcan and a bolus of fluid and back to his baseline. Currently his only complaint is a headache which he has been given tylenol without relief. denies CP, SOB, abdominal pain, one sided weakness numbness tingling. Physical Exam Physical Exam: Physical Exam: Constitutional: appearance nourished, healthy and normal Ears, Nose, Mouth and Throat: mucous membranes moist, no injection and skin normal, eyes normal Cardiovascular: normal S-1 and S-2 and regular rate and rhythm Respiratory: course breath sounds Musculoskeletal: no peripheral edema and good distal pulses Skin: no stigmata of neurocutaneous disease noted and normal and intact Eyes: extraocular muscles intact (EOMI) and pupils equal, round and reactive to light (PERRL) NEUROLOGIC EXAMINATION: Mental status: Alert and interactive Oriented to person, identifies buttons, thumb, stethoscope Speech fluent with no evidence of aphasia Cranial Nerves slight flattening left nasolabial fold Reflexes: Deep tendon reflexes were symmetrical and graded 2/5. down going toes Sensory: light touch intact Coordination: finger to nose no bi pass Gait/Stance: Posture normal lying in bed Motor: Negative for pronator drift of out stretched arms with eyes closed. Strength: biceps triceps hand community center coordinator bilaterally 5/5, hip flex plantar flex ext 5/5 Results & Data ([facility]) Vital Signs (Past 12 Hours) Vital Signs Temp Pulse Resp BP Pulse Ox 08/22/20 07:00 36.6 C 77 18 125/79 96 Laboratory Results Abnormal lab results 08/21/20 08/22/20 08/22/20 Range/Units 17:32 04:41 04:41 RBC 4.15 L (4.7-6.1) M/uL Hgb 11.9 L (14.0-18.0) g/dL Hct 36.1 L (42-52) % Emmons # (Auto) 0.83 H (0.11-0.59) K/uL Immature Gran # (Auto) 0.03 H (0.00-0.02) K/uL PT 23.0 H (9.0-12.0) Seconds INR 2.3 H (0.9-1.1) Chloride (98-107) mmol/L Anion Gap (3-11) POC Glucose 195 H (70-99) mg/dl 08/22/20 Range/Units 04:41 RBC (4.7-6.1) M/uL Hgb (14.0-18.0) g/dL Hct (42-52) % Emmons # (Auto) (0.11-0.59) K/uL Immature Gran # (Auto) (0.00-0.02) K/uL PT (9.0-12.0) Seconds INR (0.9-1.1) Chloride 109 H (98-107) mmol/L Anion Gap 1.0 L (3-11) POC Glucose (70-99) mg/dl Diagnostic Findings TTE- 65-70 % EF no ASD (1) CKD (chronic kidney disease) stage 3, GFR 30-59 ml/min Chronic kidney disease stage 3 subtype: unspecified whether 3a or 3b Qualified Code(s): N18.30 - Chronic kidney disease, stage 3 unspecified
--- NOTE | 2020-08-22 16:29 | Communication Note ---
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 He has been on Coumadin because of pulmonary emboli and now presented with a small vessel right pontine infarct and mild gait disturbance and had a cardiac/pulmonary event with apparent hypotension and may have been asystolic for a bit and is now recovered He is back on Coumadin, CT angiography has shown some fusiform dilatation of the vertebral vessels but I do not think this is anything a surgeon is going to address and is appropriately on aspirin, clinically has minimal ataxia to the right and at this point I think should be discharged once felt to be medically stable to home care with outpatient physical therapy on a combination of Coumadin and aspirin and to follow-up in neurology in 4 to 6 weeks We are therefore going to be signing off the case and Rayna Arana and or myself can see him in follow-up as I know him from prior outpatient evaluations Db Thomson MD
[2020-08-22] MEDS ORDERED: rOPINIRole HCL 0.25 MG TABLET PO STA (20:22)
[2020-08-22] MEDS: CHOLECALCIFEROL 1,000 UNITS 25 MCG TAB PO SCH (20:39)
[2020-08-22] MEDS: DICLOFENAC SOD 1% GEL 100 GM TUBE EXT SCH (20:40)
[2020-08-22] MEDS ORDERED: MECLIZINE 12.5 MG TAB PO PRN (20:52)
[2020-08-22] MEDS ORDERED: WARFARIN SOD 5 MG TAB PO SCH (21:00)
[2020-08-22] MEDS: MELATONIN 3 MG TAB PO PRN (21:01)
[2020-08-23] MEDS: ACETAMINOPHEN 500 MG TAB PO SCH ×2 (01:40→12:38)
[2020-08-23 05:58] LABS: Basophils # (auto) 0.01 K/uL (0-0.2); Basophils % (auto) 0.2 %; Eosinophils # (auto) 0.32 K/uL (0-0.5); Eosinophils % (auto) 4.9 %; Hematocrit (blood only) 37.1 % (42-52); Hemoglobin 12.1 g/dL (14.0-18.0); Immature Granulocytes # (auto) 0.02 K/uL (0.00-0.02); Immature Granulocytes % (auto) 0.3 %; Lymphocytes # (auto) 2.02 K/uL (1.2-3.4); Lymphocytes % (auto) 30.7 %; Mean Corpuscular Hemoglobin 28.5 pg (25-34); Mean Corpuscular Hgb Conc 32.6 g/dL (32-36); Mean Corpuscular Volume 87.3 fL (80-100); Mean Platelet Volume 9.4 fL (7.4-10.4); Monocytes # (auto) 0.77 K/uL (0.11-0.59); Monocytes % (auto) 11.7 %; Neutrophils # (auto) 3.44 K/uL (1.4-6.5); Neutrophils % (auto) 52.2 %; Platelet Count 221 K/uL (130-400); RDW Coefficient of Variation 13.8 % (11.5-14.5); RDW Standard Deviation 44.4 fL (36.4-46.3); Red Blood Count 4.25 M/uL (4.7-6.1); White Blood Count 6.58 K/uL (4.8-10.8)
[2020-08-23 06:22] LABS: INR 1.8 (0.9-1.1); Prothrombin Time 18.3 Seconds (9.0-12.0)
[2020-08-23 06:29] LABS: BUN Creatinine Ratio 12.3 (10-20); Creatinine Clr Calc Pharmacy 34.7 ml/min; Est GFR (African American) 57.8; Est GFR (Non-African American) 49.9; Magnesium 2.2 mg/dl (1.8-2.4); Potassium 4.1 mmol/L (3.5-5.1)
[2020-08-23 06:32] LABS: Phosphorus 3.6 mg/dl (2.5-4.9)
[2020-08-23] MEDS: DICLOFENAC SOD 1% GEL 100 GM TUBE EXT SCH (09:08)
[2020-08-23] MEDS: ASPIRIN 81 MG ECTAB PO SCH (09:08)
[2020-08-23] MEDS: CITALOPRAM 20 MG TAB PO SCH (09:08)
[2020-08-23] MEDS: ATORVASTATIN 40 MG TAB PO SCH (09:08)
[2020-08-23] MEDS: PANTOprazole 40 MG TAB PO SCH (09:08)
[2020-08-23] MEDS: GABAPENTIN 100 MG CAP PO SCH (09:08)
[2020-08-23 10:21] VITALS: O2SAT 95
--- NOTE | 2020-08-23 11:19 | Hospitalist Progress Note ---
Date of Service August 23, 2020 Assessment & Plan (1) Acute cerebrovascular accident: Acute stroke. Lacunar infarct right viraj with significant stenosis right MCA Echo showed: Normal LV size and systolic function with EF 65 to 70% without any wall motion abnormality and/or hypertrophy. No significant valvular abnormalities with normal RV pressure Cont ASA and warfarin. Stroke laert patient but didn't receive tpA. Started Lipitor. PT/OT consult. Allow permissive HTN. Repeat head CT did not show evidence of hemorrhagic transformation on coumadin. Warfarin restarted and the INR remains therapeutic Remains stable without any more neurological symptoms No more headache and/or dizziness He will be discharged home this afternoon Unsteady gait Likely secondary to stroke Continue PT and OT and follow the recommendation PT and OT recommended home He has not been having any more unsteady gait with ambulation (2) History of pulmonary embolism: On chronic anticoagulation with Coumadin No acute symptoms and INR is therapeutic INR is slightly low at 1.8 today He will have follow-up appointment with the coagulation clinic on Thursday Continue with the current dose of Coumadin (3) Adverse drug event: apparent reaction to oxycodone today (5mg) where he became hyptensive and bradycardic. NArcan was given along with fluids and he was feeling somewhat better. As an outpatient he was on oxycodone Will not give any more oxycodone but will try Ultram for pain control Discussed with the daughter in detail (4) DVT prophylaxis: warfarin Full Discussed with the daughter and the patient be discharged this afternoon Admission and Anticipated Discharge Date Admission Date: August 20, 2020 Subjective 08/22/2020 The patient was seen and examined in ICU when the daughter was on line with the patient He complains to have some left shoulder pain and was getting physical therapy as an outpatient He also has had some neck pain After discussing with the patient a small dose of Toradol 1 time was given He still complains to have some unsteadiness on feet 08/23/2020 The patient was seen and examined in telemetry unit He has been feeling a lot better and denies any dizziness with ambulation He denies any other neurological symptoms He has been ambulating around the hallway without any significant symptoms Review of Systems Review of Systems: All systems reviewed and are unremarkable except as noted below Musculoskeletal: Left shoulder pain with movement Neurologic: + unsteadiness; no paralysis, no numbness and no abnormal speech Physical Exam Physical Exam: Sitting at the edge of the bed without any apparent distress Constitutional: well developed, well nourished and + obese Eyes: PERRL, conjunctivae normal, anicteric sclerae ENMT: external ear and nose normal, oropharynx normal Neck: trachea midline, no thyromegaly Respiratory: no respiratory distress Auscultation: lungs clear to auscultation bilaterally Cardiovascular: Rate/Rhythm: regular rate and regular rhythm Heart Sounds: no murmur Extremities: no edema Gastrointestinal (Abdomen): Inspection/Auscultation: normal bowel sounds; abdomen not distended Percussion/Palpation: abdomen soft; abdomen nontender Musculoskeletal: No acute arthritis in any joint Neurologic: Alert, awake and oriented x3. No focal sensory and motor deficit appreciated Psychiatric: A+Ox3, euthymic affect Lymphatic: no cervical or axillary lymphadenopathy Results & Data Results & Data ([facility]) Vital Signs (Past 12 Hours) Vital Signs Temp Pulse Resp BP Pulse Ox Pulse Ox 08/23/20 08:00 37.3 C 88 20 145/79 H 95 08/23/20 03:26 36.6 C 86 19 149/81 H 96 08/23/20 03:00 96 08/22/20 23:50 36.5 C 81 18 123/80 95 Laboratory Results Short CBC 08/23/20 Range/Units 05:25 WBC 6.58 (4.8-10.8) K/uL Hgb 12.1 L (14.0-18.0) g/dL Hct 37.1 L (42-52) % Plt Count 221 (130-400) K/uL BMP 08/23/20 05:25 Sodium 140 Potassium 4.1 Chloride 108 H Carbon Dioxide 30 BUN 16 Creatinine 1.32 Glucose 95 Calcium 9.0 Medications Administered Current Inpatient Medications Acetaminophen (Acetaminophen 500 Mg Tab) 1,000 mg PO Q8H [facility] Stop: 09/20/20 09:59 Last Admin: 08/23/20 01:40 Dose: Not Given Documented by: Albuterol (Albuterol Hfa 8 Gm Inhaler) 2 puffs INH Q4H PRN PRN Reason: Shortness Of Breath Or Wheezing Stop: 09/19/20 23:57 Amlodipine Besylate (Amlodipine Besylate 5 Mg Tab) 2.5 mg PO QAM [facility] Stop: 09/20/20 08:59 Last Admin: 08/21/20 09:03 Dose: 2.5 mg Documented by: Aspirin (Aspirin 81 Mg Ectab) 81 mg PO [facility] Stop: 09/20/20 08:59 Last Admin: 08/23/20 09:08 Dose: 81 mg Documented by: Atorvastatin Calcium (Atorvastatin 40 Mg Tab) 40 mg PO QAM [facility] Stop: 09/20/20 08:59 Last Admin: 08/23/20 09:08 Dose: 40 mg Documented by: Carvedilol (Carvedilol 6.25 Mg Tab) 6.25 mg PO [facility] Stop: 09/20/20 08:59 Last Admin: 08/21/20 09:03 Dose: 6.25 mg Documented by: Citalopram Hydrobromide (Citalopram 20 Mg Tab) 20 mg PO [facility] Stop: 09/20/20 08:59 Last Admin: 08/23/20 09:08 Dose: 20 mg Documented by: Diclofenac Sodium (Diclofenac Sod 1% Gel 100 Gm Tube) 4 gm EXT BID [facility] Stop: 09/21/20 20:59 Last Admin: 08/23/20 09:08 Dose: 4 gm Documented by: Gabapentin (Gabapentin 100 Mg Cap) 100 mg PO BID [facility] Stop: 09/19/20 21:12 Last Admin: 08/23/20 09:08 Dose: 100 mg Documented by: Meclizine HCl (Meclizine 12.5 Mg Tab) 12.5 mg PO TID PRN PRN Reason: Vertigo Stop: 09/21/20 20:51 Melatonin (Melatonin 3 Mg Tab) 3 mg PO HS PRN PRN Reason: Sleep Stop: 09/20/20 00:56 Last Admin: 08/22/20 21:01 Dose: 3 mg Documented by: Miscellaneous Information (Pharmacist Discharge Med Rec Consult) 1 ea N/A UD PRN PRN Reason: Consult Stop: 09/19/20 23:57 Ondansetron HCl (Ondansetron Inj 2 Mg/Ml 2 Ml Vial) 4 mg IV Q6H PRN PRN Reason: Nausea Stop: 09/19/20 23:57 Pantoprazole Sodium (Pantoprazole 40 Mg Tab) 40 mg PO [facility] Stop: 09/20/20 08:59 Last Admin: 08/23/20 09:08 Dose: 40 mg Documented by: Polyethylene Glycol (Polyethylene (Miralax) 17 Gm Pack) 17 gm PO DAILY PRN PRN Reason: Constipation Stop: 09/19/20 23:57 Tramadol HCl (Tramadol Hcl 50 Mg Tablet) 25 mg PO Q4H PRN PRN Reason: Pain Stop: 09/21/20 11:06 Vitamin D (Cholecalciferol 1,000 Units 25 Mcg Tab) 5,000 units PO [facility] Stop: 09/20/20 00:14 Last Admin: 08/22/20 20:39 Dose: 5,000 units Documented by: Warfarin Sodium (Warfarin Sod 2.5 Mg Tab) 2.5 mg PO Mo@2100 [facility] Stop: 09/26/20 20:59 Warfarin Sodium (Warfarin Sod 5 Mg Tab) 5 mg PO SuTuWeThFrSa@2100 [facility] Stop: 09/21/20 20:59 Last Admin: 08/22/20 20:37 Dose: 5 mg Documented by:
[2020-08-23] MEDS ORDERED: STROKE PATIENT DISCHARGE STA (11:28)
[2020-08-23 12:17] VITALS: PULSE 84; TEMP 98.2
[2020-08-23 12:23] VITALS: BP 148/89
--- NOTE | 2020-08-23 15:55 | Pharmacy Report ---
Pharmacist Stroke Counseling - Date of Service August 23, 2020 - Scope: Pharmacy has been consulted to provide medication discharge counseling for this patient admitted with [ischemic stroke] [hemorrhagic stroke] [transient ischemic attack] as per the Pharmacist Discharge Counseling for Stroke Patients Pro tocol. - Medications on Discharge: Home Medications Medication Instructions Recorded Confirmed citalopram 20 mg PO QAM 08/31/18 08/20/20 pantoprazole 40 mg PO QAM 08/31/18 08/20/20 carvedilol 6.25 mg PO QAM 03/09/20 08/20/20 cholecalciferol (vitamin D3) 125 mcg PO HS 03/09/20 08/20/20 [Vitamin D3] gabapentin 100 mg PO BID 03/09/20 08/20/20 multivitamin 1 tab PO HS 03/09/20 08/20/20 meclizine 12.5 mg PO TID PRN 03/12/20 08/20/20 amlodipine 2.5 mg PO QAM 05/16/20 08/20/20 aspirin 81 mg PO QAM 07/04/20 08/20/20 warfarin 2.5 mg PO .MO@HS 07/04/20 08/20/20 warfarin 5 mg PO .SUTUWETHFRSA@HS 07/04/20 08/20/20 albuterol sulfate 1 - 2 puff INHALATION DIRECTED 07/07/20 08/20/20 PRN Medication Instructions Recorded polyethylene glycol 3350 [Miralax] 17 g PO DAILY PRN #30 ea 07/09/20 atorvastatin 40 mg PO QAM 30 Days #30 tab 08/23/20 diclofenac sodium [Voltaren] 4 g EXT BID 30 Days #1 tube 08/23/20 - Action: The above medications, specifically ones for stroke treatment/prophylaxis, have been reviewed in detail with the patient and/or patient medical center representative(s) prior to discharge. This includes indication, common adverse reactions, drug interactions, and medication administration. Medication counseling has been employed using the teach-back method to ensure understanding. - Outcome: The patient and/or patient medical center representative(s) have demonstrated understanding of the medications. Additional comments: Provided counseling over the phone to patient, however he had some difficulty with hearing. He had asked me to contact his daughter (Zahra) to review list with her since she takes care of his medications. Did call patient's daughter and provided a review of medications on discharge. No questions/concerns from daughter at this time. Thank you for allowing pharmacy to be involved in the care of this patient. Please call [phone] with any additional questions
--- NOTE | 2020-08-24 09:51 | Discharge Summary ---
Date of Service August 24, 2020 Admission HPI Per Admitting Provider Patient is an 80-year-old male with history of lung cancer S/P right middle lobectomy, prostate cancer S/P resection, pulmonary embolism on chronic anticoagulation with Coumadin, hypertension, GERD, migraine, generalized anxiety disorder, CKD stage III and other medical problems presents with history of slurred speech, trouble walking which started about 8.30AM. As per the patient and his daughter, patient had been well last known at 1 AM. Patient was able to ambulate well overnight to the bathroom. He states that when he woke up he had slurred/muffled speech, word finding difficulty and had trouble with walking and noted balance issues. He reports associated mild occipital headache. He states having chronic vertigo and uses meclizine as needed. While getting CT scan in ED, he noticed to have a transient episode of vertigo again which currently resolved. ER physician discussed with telemetry neurology, and was thought to be not a candidate for TPA or endovascular intervention. Denies having any focal weakness, facial deformity, dysphagia, odynophagia. He reports chronic numbness in his hands which he attributes to carpal tunnel, which is unchanged. Also states having chronic cough which is unchanged, some chest tightness nonradiating, no aggravating relieving factors not associated with nausea, vomiting, diaphoresis or shortness of breath. He admits to taking his aspirin at home. Denies any history of palpitations, orthopnea, dizziness, wheezing, hemoptysis, fever, chills, fall, head trauma, LOC, change in vision, double/blurry vision, facial deformity, bowel/bladder incontinence, nausea, vomiting, abdominal pain, blood in stools, diarrhea, change in appetite, weight loss, dysuria, hematuria, recent travel, sick contact, recent change in medications. Admission Exam Per Admitting Provider Physical Exam: Physical Exam: Vitals signs as noted above General Appearance:Moderately built and nourished, no apparent distress Head: normocephalic, Atraumatic Eyes: normal inspection, EOMI Neck: supple, Trachea midline Respiratory/Chest: Normal breath sounds, CTA, No accessory muscle use Cardiovascular: S1, S2, No murmur Abdomen/GI:Soft, Non tender, Bowel sounds present Extremities/Musculoskelatal:normal inspection, + B/L LE 1-2+ edema Neurologic/Psych:AAOX3, + slurred speech(not baseline as per daughter), no facial deformity, EOMI, left upper extremity -strength not performed, given recent surgery Skin: normal color, warm Principal Diagnosis Acute stroke, lacunar infarct right viraj, history of pulmonary embolism on Coumadin, hypertension Discharge Exam Constitutional well developed, well nourished and + obese Eyes PERRL, conjunctivae normal, anicteric sclerae ENMT external ear and nose normal, oropharynx normal Neck trachea midline, no thyromegaly Respiratory no respiratory distress Auscultation: lungs clear to auscultation bilaterally Cardiovascular Rate/Rhythm: regular rate and regular rhythm Heart Sounds: no murmur Extremities: no edema Gastrointestinal (Abdomen) Inspection/Auscultation: normal bowel sounds; abdomen not distended Percussion/Palpation: abdomen soft; abdomen nontender Psychiatric A+Ox3, euthymic affect Lymphatic no cervical or axillary lymphadenopathy Discharge Data Allergies Allergy/AdvReac Type Severity Reaction Status Date / Time oxycodone AdvReac Severe became Verified 08/21/20 12:51 apneic and bradycardic Consultations 08/20/20 14:32 ED Decision to Admit Stat 08/20/20 23:58 Consult Case Management - Discharge Planning Routine Consult Case Management - Discharge Planning Routine Consult Neurology Routine Consult Patient Services Routine Ordered Studies 08/20/20 13:33 CT angio neck with con Stat CT head/brain wo con Stat 08/20/20 13:34 CT angio head w con Stat 08/20/20 14:32 MR brain wo/w con Stat 08/21/20 10:30 CT head/brain wo con Routine 08/21/20 15:28 CT head/brain wo con Stat Hospital Course (1) Acute cerebrovascular accident: Acute stroke. Lacunar infarct right viraj with significant stenosis right MCA Echo showed: Normal LV size and systolic function with EF 65 to 70% without any wall motion abnormality and/or hypertrophy. No significant valvular abnormalities with normal RV pressure Cont ASA and warfarin. Stroke laert patient but didn't receive tpA. Started Lipitor. PT/OT consult. Allow permissive HTN. Repeat head CT did not show evidence of hemorrhagic transformation on coumadin. Warfarin restarted and the INR remains therapeutic Remains stable without any more neurological symptoms No more headache and/or dizziness He will be discharged home this afternoon Unsteady gait Likely secondary to stroke Continue PT and OT and follow the recommendation PT and OT recommended home He has not been having any more unsteady gait with ambulation (2) History of pulmonary embolism: On chronic anticoagulation with Coumadin No acute symptoms and INR is therapeutic INR is slightly low at 1.8 today He will have follow-up appointment with the coagulation clinic on Thursday Continue with the current dose of Coumadin (3) Adverse drug event: apparent reaction to oxycodone today (5mg) where he became hyptensive and bradycardic. NArcan was given along with fluids and he was feeling somewhat better. As an outpatient he was on oxycodone Will not give any more oxycodone but will try Ultram for pain control Discussed with the daughter in detail (4) DVT prophylaxis: warfarin Full Discussed with the daughter and the patient be discharged this afternoon Total Time Total Time Spent Total Time Spent (In Minutes): 35 minutes Total Time Includes: Examination of the Patient, Discharge Planning, Medication Reconciliation and Communication With Other Providers Discharge Plan Discharge Items Patient Disposition: Home - Self-Care Reason For Visit: UNSTEADY,WEAKNESS,SLURRED SPEECH Discharge Diagnosis: Acute stroke, lacunar infarct right viraj, history of pulmonary embolism on Coumadin, hypertension Condition on Discharge: Good Activity: Resume your previous activity Non-emergency contact: Primary Care Provider Call non-emergency contact if: you have any medication questions and your symptoms worsen Follow-up/Referrals: Ranulfo Schumacher, [Primary Care Provider] - (You will be called on Thursday with an appointment with your primary care physician within 7 days.) Diet: Regular Addtl Attending Provider Instructions: Please take precaution to avoid falls Have regular follow-up appointment with your Coumadin clinic Do not take any more oxycodone Pending Studies at Discharge: No Stand-Alone Forms: Medications to Prevent Stroke, My [facility] [employer], Smoking Cessation Medications and DC Order Prescriptions: New atorvastatin 40 mg Tablet 40 mg PO QAM 30 Days Qty: 30 RF: 0 diclofenac sodium [Voltaren] 1 % Gel 4 g EXT BID 30 Days Qty: 1 RF: 0 Continued carvedilol 6.25 mg Tablet 6.25 mg PO QAM RF: 0 gabapentin 100 mg Capsule 100 mg PO BID RF: 0 multivitamin Tablet 1 tab PO HS RF: 0 cholecalciferol (vitamin D3) [Vitamin D3] 125 mcg (5,000 unit) Tablet 125 mcg PO HS RF: 0 amlodipine 2.5 mg tablet 2.5 mg PO QAM RF: 0 meclizine 12.5 mg tablet 12.5 mg PO TID PRN (Reason: DIZZY) RF: 0 albuterol sulfate 90 mcg/actuation HFA aerosol inhaler 1 - 2 puff INHALATION DIRECTED PRN (Reason: Shortness Of Breath Or W heezing) RF: 0 polyethylene glycol 3350 [Miralax] 17 gram Powder In Packet 17 g PO DAILY PRN (Reason: constipation) Qty: 30 RF: 0 citalopram 20 mg tablet 20 mg PO QAM RF: 0 pantoprazole 40 mg tablet,delayed release (DR/EC) 40 mg PO QAM RF: 0 aspirin 81 mg Tablet,Delayed Release (Dr/Ec) 81 mg PO QAM RF: 0 warfarin 5 mg Tablet 2.5 mg PO .MO@HS RF: 0 warfarin 5 mg tablet 5 mg PO .SUTUWETHFRSA@HS RF: 0 Discharge Orders: Discharge Order (Routine); Ordered 08/23/20 Ordered By: Pauly Shepherd/Other Patient Handouts: Symptoms of Stroke, Stroke: Taking Medicines, Stroke: Self-Care, Discharge Instructions for Stroke Admission Data Admit Date/Time: 08/20/20 16:13 Attending Provider: Pauly Buchanan Admit Provider: Yonatan Lopez Primary Care Provider: Ranulfo Schumacher Other Providers: Yonatan Lopez ; Florencia Ramsey ; Karli Manning Other Interventions: Discharge Summary Assessment (RN) Last Done: 08/23/20 12:21
[2020-08-27] MEDS ORDERED: WARFARIN SOD 2.5 MG TAB PO SCH (21:00)
== END 2020-08-23 13:20 | disposition home or self-care (01) | DRG 66 ==
LOC: ED 13:04 → 1E 16:13 → SUATTDRO 16:13 → EDINP 16:13 → 1E 08-21 10:49
DX: Z86.711 Personal history of pulmonary embolism; Z79.82 Long term (current) use of aspirin; N18.30 Chronic kidney disease, stage 3 unspecified; J45.909 Unspecified asthma, uncomplicated; Y92.230 Patient room in hospital as the place of occurrence of the external cause; Z96.612 Presence of left artificial shoulder joint; Z85.118 Personal history of other malignant neoplasm of bronchus and lung; I69.393 Ataxia following cerebral infarction; T40.2X5A Adverse effect of other opioids, initial encounter; F41.1 Generalized anxiety disorder; R79.1 Abnormal coagulation profile; Z85.46 Personal history of malignant neoplasm of prostate; Z90.2 Acquired absence of lung [part of]; K21.9 Gastro-esophageal reflux disease without esophagitis; I66.01 Occlusion and stenosis of right middle cerebral artery; I63.81 Other cerebral infarction due to occlusion or stenosis of small artery; I95.2 Hypotension due to drugs; R29.702 NIHSS score 2; Z79.01 Long term (current) use of anticoagulants; I12.9 Hypertensive chronic kidney disease with stage 1 through stage 4 chronic kidney disease, or unspecified chronic kidney disease

== ENCOUNTER 2020-10-04 15:09 | Inpatient (IN) ==
[2020-10-04] MEDS ORDERED: SODIUM CHLORIDE 0.9% 1000ML 500 ML IV ONE (15:25)
--- NOTE | 2020-10-04 15:33 | Emergency Department Note ---
Impression & Plan Acute confusion, Weakness, Stroke-like symptoms, History of CVA (cerebrovascular accident) ED Provider Note NAME: BUCK BATISTA AGE: 80 SEX: M : 1940 ARRIVES VIA: Walk-In INFORMANT: Patient, daughter ED PROVIDER(S): [Chetan Benton MD] CHIEF COMPLAINT: Stroke symptoms HISTORY OF PRESENT ILLNESS: The patient is an 80-year-old male who presents to the ED with some confusion and difficulty with gait really almost all day although, the family thought it worsened about 3 hours ago. The patient had a hard time understanding how to use the TV remote control, he seemed off balance and quite weak. The patient is a history of a stroke about a month and a half ago. He is currently on Coumadin. The family brought him here today with concerns for recurrent stroke. The patient denies any headache or chest pain, he is not short of breath. No abdominal pain. No urinary complaints, no nausea or vomiting. No known Covid exposures. REVIEW OF SYSTEMS: See HPI for pertinent positives and negatives. A total of ten systems were reviewed and were otherwise negative. PMHx/PSHx: See Below SOCIAL HISTORY: See Below. PHYSICAL EXAM: GENERAL: Patient is in no acute distress. HEENT: No acute trauma, normocephalic atraumatic, mucous membranes moist, no nasal congestion, no scleral icterus. NECK: No stridor, no adenopathy, no meningismus, trachea is midline. LUNGS: Clear to auscultation bilaterally, no wheeze, no rhonchi, breath sounds equal. HEART: Without murmurs gallops or rubs, regular rate and rhythm. ABDOMEN: Soft, nontender, bowel sounds positive, no hernias, no peritonitis. EXTREMITIES: No cyanosis or edema, full range of motion of all the joints without pain or difficulty, no signs for acute trauma. NEUROLOGIC: Oriented x 3, no acute motor or sensory deficits, no focal weakness. No cerebellar deficits, no extremity drift, no speech slur or facial droop. SKIN: No rash, no jaundice, no diaphoresis. DIFFERENTIAL DIAGNOSIS: Infection, dehydration, metabolic abnormality, stroke, TIA, intracranial blee ding, hypo/hyperglycemia, electrolyte disturbance, anemia, hypoxia, cardiac sources, intracerebral event, toxicologic, neurologic, as well as other pathologies. EMERGENCY DEPARTMENT COURSE/PROCEDURES: ECG: Indication was possible stroke. The ECG shows a normal sinus rhythm with a rate of 78. There is LVH present. There is no ST elevation, no PVCs. The QTc is 444 Continuous Cardiac Monitoring: An order was placed for continuous cardiac monitoring. The monitor shows a rate of 80 with normal sinus rhythm. Critical Care Note: I have personally spent 39 minutes of critical care time in the direct management of this patient. This includes bedside care, interpretation of diagnostic studies, and testing, discussion with consultants, patient, and family members, and other required patient management activities. This 39 minutes is in excess of all separately billable procedures. MEDICAL DECISION MAKING: There is no leukocytosis. There is a mild anemia present. There is a normal platelet count. INR is slightly subtherapeutic with a value of 1.8. No kidney failure. No significant electrolyte abnormality in need of correction. No liver enzyme elevation. ECG shows a sinus rhythm, no acute ischemia. Cardiac enzyme testing x1 is not consistent with acute cardiac injury. Ammonia level was normal. Chest x-ray did not show CHF or pneumonia. Urinalysis result is pending. Brain CT showed no acute bleed or mass-effect. CT angio of the brain and neck showed some narrowing of vessels thought to be stable compared to a recent CT scan. On my exam, the patient was slow to respond to questions at times but, there was no speech slur or facial droop, no focal neurologic finding. The patient was given IV saline, 500 cc. He is currently resting comfortably. He remains without focal neurologic findings. I spoke to the patient and his daughter. The patient is not back to his baseline. He remains slow to respond at times and the daughter believes, slightly confused. I spoke with neurology. Hospitalization, an MRI, an EEG were recommended. I spoke to the patient and case management. The on-call hospitalist was consulted. At this point, the cause for his presentation is unclear, a small new stroke is of course a consideration though. Of note, the patient is not a TPA candidate as he is out of the 3-hour window, in addition, he is anticoagulated on Coumadin. Past Med/Surg History Medical History Asthma Using albuterol inhaler TID now since PEs. Previously wasn't using inhaler at all. Cancer LUNG AND PROSTATE CANCER, both treated surgically Degenerative disc disease GERD (gastroesophageal reflux disease) HTN (hypertension) Migraine HX OF On anticoagulant therapy Osteoarthritis Pulmonary embolism hospitalized 03/12/2020-03/15/2020 [facility] w/ BL PE; unk etiology; on coumadin Surgical History History of adenoidectomy History of carpal tunnel release RT X 2 LEFT X 3 History of cataract surgery LEFT/RIGHT History of colonoscopy History of esophagogastroduodenoscopy (EGD) History of herniorrhaphy RT INGUINAL History of laminectomy LUMBAR History of lobectomy of lung RT MIDDLE LOBE History of prostatectomy History of tonsillectomy History of tooth extraction Status post reverse arthroplasty of left shoulder (~05/2020) Family History Father FHx: prostate cancer Grandfather (Paternal) FHx: prostate cancer Social History Smoking Status: Former smoker Tobacco Type: Cigars Years Smoked: 50; Second Hand Exposure: No; Hx Alcohol Use: No Hx Substance Use: No Preferred Language: Setswana Communication Ability: Effective Brand Marketing Intern Required: No Beliefs That Will Affect Care: None marital status: Current Living Situation: Spouse Feels Safe at Home: Yes Assistive Devices: Glasses Allergies Allergies Allergy/AdvReac Type Severity Reaction Status Date / Time oxycodone AdvReac Severe became Verified 08/21/20 12:51 apneic and bradycardic Home Meds Home Medications Medication Instructions Recorded Confirmed citalopram 20 mg PO QAM 08/31/18 10/02/20 pantoprazole 40 mg PO QAM 08/31/18 10/02/20 carvedilol 6.25 mg PO QAM 03/09/20 10/02/20 cholecalciferol (vitamin D3) 125 mcg PO HS 03/09/20 10/02/20 [Vitamin D3] gabapentin 100 mg PO BID 03/09/20 10/02/20 multivitamin 1 tab PO HS 03/09/20 10/02/20 meclizine 12.5 mg PO TID PRN 03/12/20 10/02/20 amlodipine 2.5 mg PO QAM 05/16/20 10/02/20 aspirin 81 mg PO QAM 07/04/20 10/02/20 warfarin 2.5 mg PO .MO@ 07/04/20 10/02/20 warfarin 5 mg PO .MARIFER@ 07/04/20 10/02/20 albuterol sulfate 1 - 2 puff INHALATION DIRECTED 07/07/20 10/02/20 PRN Previous Rx's Medication Instructions Recorded polyethylene glycol 3350 [Miralax] 17 g PO DAILY PRN #30 ea 07/09/20 Results & Data (ED) Vital Signs Vital Signs - 24 hr 10/04/20 15:11 10/04/20 16:05 10/04/20 16:06 Temperature 36.8 C Temperature Source Skin Pulse Rate 82 80 Pulse Rate [Radial] 80 Pulse Rhythm Regular Pulse Rhythm [Radial] Regular Pulse Strength [Radial] Normal Respiratory Rate 19 16 16 Respiratory Effort / Characteristics Non-Labored Non-Labored Spontaneous Respiratory Depth Normal Normal Respiratory Pattern Regular Regular Blood Pressure 148/82 H Blood Pressure [Right Arm] 149/89 H Blood Pressure Mean 104 Blood Pressure Mean [Right Arm] 109 Blood Pressure Position [Right Arm] Sitting Pulse Oximetry 96 96 96 Oxygen Delivery Method Room Air Room Air Room Air Sepsis Recent Fever Within 48 Hours No Sepsis New/Unexplained Change in Mental Status N/A Sepsis Action Taken by Nursing No Action Required Home Medications Current Medication List: was personally reviewed by me Laboratory Data Attestation: I reviewed the patient's lab results. Result diagrams: 10/04/20 15:40 10/04/20 15:40 Lab Results 10/04/20 10/04/20 10/04/20 Range/Units 15:40 15:40 15:40 WBC 7.34 (4.8-10.8) K/uL RBC 4.48 L (4.7-6.1) M/uL Hgb 12.6 L (14.0-18.0) g/dL Hct 38.6 L (42-52) % MCV 86.2 (80-100) fL MCH 28.1 (25-34) pg MCHC 32.6 (32-36) g/dL RDW Std Deviation 44.1 (36.4-46.3) fL RDW Coeff of Marely 14.1 (11.5-14.5) % Plt Count 225 (130-400) K/uL MPV 9.4 (7.4-10.4) fL Immature Gran % (Auto) 0.1 % Neut % (Auto) 58.7 % Lymph % (Auto) 28.1 % Labette % (Auto) 10.1 % Eos % (Auto) 2.7 % Baso % (Auto) 0.3 % Neut # (Auto) 4.31 (1.4-6.5) K/uL Lymph # (Auto) 2.06 (1.2-3.4) K/uL Labette # (Auto) 0.74 H (0.11-0.59) K/uL Eos # (Auto) 0.20 (0-0.5) K/uL Baso # (Auto) 0.02 (0-0.2) K/uL Immature Gran # (Auto) 0.01 (0.00-0.02) K/uL PT (9.0-12.0) Seconds INR (0.9-1.1) APTT (21.0-31.0) Seconds PTT Ratio Sodium (136-145) mmol/L Potassium (3.5-5.1) mmol/L Chloride (98-107) mmol/L Carbon Dioxide (21-32) mmol/L Anion Gap (3-11) BUN (7-18) mg/dl Creatinine (0.6-1.4) mg/dl Est Cr Clr Drug Dosing ml/min Est GFR ( Amer) Est GFR (Non-Af Amer) BUN/Creatinine Ratio (10-20) Glucose (70-99) mg/dl POC Glucose (70-99) mg/dl Calcium (8.5-10.1) mg/dl Magnesium (1.8-2.4) mg/dl Total Bilirubin (0.2-1) mg/dl AST (15-37) U/L ALT (12-78) U/L Alkaline Phosphatase (45-117) U/L Ammonia 24.0 (11-32) umol/L Troponin I (0-0.045) ng/ml Total Protein (6.4-8.2) gm/dl Albumin (3.4-5.0) gm/dl Globulin (2.5-4.0) gm/dl Albumin/Globulin Ratio (0.9-2) Blood Type B Positive Antibody Screen NEGATIVE 10/04/20 10/04/20 10/04/20 Range/Units 15:40 15:40 16:01 WBC (4.8-10.8) K/uL RBC (4.7-6.1) M/uL Hgb (14.0-18.0) g/dL Hct (42-52) % MCV (80-100) fL MCH (25-34) pg MCHC (32-36) g/dL RDW Std Deviation (36.4-46.3) fL RDW Coeff of Marely (11.5-14.5) % Plt Count (130-400) K/uL MPV (7.4-10.4) fL Immature Gran % (Auto) % Neut % (Auto) % Lymph % (Auto) % Labette % (Auto) % Eos % (Auto) % Baso % (Auto) % Neut # (Auto) (1.4-6.5) K/uL Lymph # (Auto) (1.2-3.4) K/uL Labette # (Auto) (0.11-0.59) K/uL Eos # (Auto) (0-0.5) K/uL Baso # (Auto) (0-0.2) K/uL Immature Gran # (Auto) (0.00-0.02) K/uL PT 18.8 H (9.0-12.0) Seconds INR 1.8 H (0.9-1.1) APTT 36.5 H (21.0-31.0) Seconds PTT Ratio 1.3 Sodium 138 (136-145) mmol/L Potassium 3.9 (3.5-5.1) mmol/L Chloride 106 (98-107) mmol/L Carbon Dioxide 27 (21-32) mmol/L Anion Gap 5.0 (3-11) BUN 27 H (7-18) mg/dl Creatinine 1.25 (0.6-1.4) mg/dl Est Cr Clr Drug Dosing 39.9 ml/min Est GFR ( Amer) 61.8 Est GFR (Non-Af Amer) 53.3 BUN/Creatinine Ratio 21.9 H (10-20) Glucose 116 H (70-99) mg/dl POC Glucose 108 H (70-99) mg/dl Calcium 8.7 (8.5-10.1) mg/dl Magnesium 2.2 (1.8-2.4) mg/dl Total Bilirubin 0.4 (0.2-1) mg/dl AST 14 L (15-37) U/L ALT 31 (12-78) U/L Alkaline Phosphatase 91 (45-117) U/L Ammonia (11-32) umol/L Troponin I < 0.015 (0-0.045) ng/ml Total Protein 7.2 (6.4-8.2) gm/dl Albumin 3.5 (3.4-5.0) gm/dl Globulin 3.7 (2.5-4.0) gm/dl Albumin/Globulin Ratio 0.9 (0.9-2) Blood Type Antibody Screen Administered Medications Discontinued Medications Sodium Chloride (Nss 1000ml) 500 mls @ 999 mls/hr IV .Q31M ONE Stop: 10/04/20 15:55 Last Infusion: 10/04/20 17:45 Dose: 0 mls/hr Documented by: [id number] Admin: 10/04/20 16:45 Dose: 999 mls/hr Documented by: [id number] Ioversol (Optiray 320 125ml) 119 ml IV ONCE ONE Stop: 10/04/20 16:38 Last Admin: 10/04/20 16:37 Dose: 119 ml Documented by: [id number] Imaging Data Radiologist's Impression: XR chest 1V portable CLINICAL HISTORY: Stroke Like Symptoms COMPARISON STUDY: 08/21/2020 FINDINGS: The cardiac and mediastinal contours remain stable. There is no failure. There is no focal pulmonary consolidation. There are no pleural effusions. There is a reverse total left shoulder arthroplasty. There is a chronic right AC joint separation[ IMPRESSION: No active disease in the chest. UNENHANCED CT OF THE BRAIN; CT ANGIOGRAM OF THE BRAIN; CT ANGIOGRAM OF THE NECK CLINICAL HISTORY: Strokelike symptoms. COMPARISON STUDY: CT of the brain dated 08/21/2020. CT angiogram of the head and neck dated 08/20/2020. TECHNIQUE: Unenhanced axial CT scan of the brain is performed. Subsequently, following the IV administration of 119 of Optiray 320, CT angiogram of the head and neck was performed from the aortic arch to the vertex. Images are reviewed in the axial, sagittal, and coronal planes. 3-D MIPS images are created and assessed. IV contrast was administered without complication. All measurements were calculated based on NASCET criteria. A dose lowering technique was utilized adhering to the principles of ALARA. CT DOSE: 1062.82 mGy.cm FINDINGS: Brain parenchyma: There is age-related involutional change noting moderate confluent subcortical and periventricular microangiopathic disease. There is no hemorrhage, mass effect, or evidence of acute territorial ischemia by CT criteria. There is no evidence of enhancing mass lesion on the angiogram phase images. The ventricles, sulci, and cisterns are prominent secondary to involutional change. Brar-white matter differentiation is preserved. No extra- axial fluid collection is seen. Mineralization is again seen in the left basal ganglia. Thoracic aorta: There is atherosclerotic calcification of the thoracic aorta. Visualized portions of the thoracic aorta are normal in caliber. The aortic arch demonstrates standard 3-vessel anatomy. Right carotid arterial system: The right common carotid artery is widely patent. Atherosclerotic plaque causes less than 50% luminal narrowing at the origin of the right internal carotid artery. The remainder of the right internal carotid artery is widely patent, as is the right external carotid artery. Left carotid arterial system: The left common carotid artery is widely patent as are the left internal and external carotid arteries. Mild plaque is noted in the carotid bulb. Vertebral arteries: The vertebral arteries are widely patent bilaterally and codominant. Subclavian arteries: Widely patent bilaterally. Intracranial vasculature: There is atherosclerotic calcification of the cavernous carotid and vertebral arteries The internal carotid arteries are patent at the skull base, as are the anterior and middle cerebral arteries b ilaterally. There is mild focal stenosis of the supraclinoid left internal carotid artery on image #97. There is focal high-grade stenosis of the M1 segment of the right middle cerebral artery, best seen on image #91. The vertebrobasilar system and posterior cerebral arteries are patent. The vertebral arteries are codominant. 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 This measures up to 6 mm as seen on image #294. There is mild focal stenosis of the P1 segment of the right posterior cerebral artery, best seen on image #99. There is no aneurysm, high- grade stenosis, or focal vessel cut off seen throughout the intracranial circulation. Jugular veins: Patent bilaterally. Dural sinuses: Patent. Lung apices: Partially visualized upper lobe lung parenchyma appears clear. Soft tissues: The visualized pharyngeal soft tissues are normal in appearance noting angiographic phase technique. The oropharyngeal airway appears widely patent. The salivary and thyroid glands are normal in appearance. No cervical lymphadenopathy is seen. Skeletal structures: The skeletal structures are osteopenic. The calvarium appears intact. The cervical spine is maintained noting multilevel spondylosis. No lytic or blastic lesion is seen. Orbits: The bony orbits are intact. Orbital contents are normal as visualized noting bilateral ocular lens implants. Sinuses and mastoids: There is subtotal opacification of the left sphenoid sinus. Thickening and sclerosis of the sinus wall indicates chronicity. The remaining paranasal sinuses are clear. The mastoid air cells are well pneumatized. IMPRESSION: 1. There is no hemorrhage, mass effect, or evidence of acute territorial ischemia by CT criteria. 2. 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 This is unchanged from previous. 3. 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 This is unchanged from previous. 4. There is mild focal stenosis of the supraclinoid left internal carotid artery and the P1 segment of the right posterior cerebral artery. These are unchanged from previous. 5. Atherosclerotic plaque causes less than 50% stenosis at the origin of the right internal carotid artery. 6. Otherwise unremarkable CT angiogram of the neck. Discharge Plan Visit Data Chief Complaint: Stroke/CVA Symptoms Stated Complaint: STROKE POSSIBLEY HX STROKE NOV ED Provider: Chetan Benton Discharge Problem: Acute confusion, Weakness, Stroke-like symptoms, History of CVA (cerebrovascular accident) Patient Disposition: Admitted As Inpatient Condition: Good Forms Stand Alone Forms: My [facility] [employer] Prescriptions Prescriptions: No Action carvedilol 6.25 mg Tablet 6.25 mg PO QAM RF: 0 gabapentin 100 mg Capsule 100 mg PO BID RF: 0 multivitamin Tablet 1 tab PO HS RF: 0 cholecalciferol (vitamin D3) [Vitamin D3] 125 mcg (5,000 unit) Tablet 125 mcg PO HS RF: 0 amlodipine 2.5 mg tablet 2.5 mg PO QAM RF: 0 meclizine 12.5 mg tablet 12.5 mg PO TID PRN (Reason: DIZZY) RF: 0 albuterol sulfate 90 mcg/actuation HFA aerosol inhaler 1 - 2 puff INHALATION DIRECTED PRN (Reason: Shortness Of Breath Or Wheezing) RF: 0 polyethylene glycol 3350 [Miralax] 17 gram Powder In Packet 17 g PO DAILY PRN (Reason: constipation) Qty: 30 RF: 0 citalopram 20 mg tablet 20 mg PO QAM RF: 0 pantoprazole 40 mg tablet,delayed release (DR/EC) 40 mg PO QAM RF: 0 aspirin 81 mg Tablet,Delayed Release (Dr/Ec) 81 mg PO QAM RF: 0 warfarin 5 mg Tablet 2.5 mg PO .MO@HS RF: 0 warfarin 5 mg tablet 5 mg PO .SUTUWETHFRSA@HS RF: 0 Referrals Referrals: Ranulfo Schumacher DO [Primary Care Provider] -
--- NOTE | 2020-10-04 15:36 | XRay Report ---
XR chest 1V portable CLINICAL HISTORY: Stroke Like Symptoms COMPARISON STUDY: 08/21/2020 FINDINGS: The cardiac and mediastinal contours remain stable. There is no failure. There is no focal pulmonary consolidation. There are no pleural effusions. There is a reverse total left shoulder arthr oplasty. There is a chronic right AC joint separation[ IMPRESSION: No active disease in the chest. ACT 112: Negative or not required by law. Electronically signed by: Laci Brownlee M.D. 10/04/2020 3:35 PM
[2020-10-04 15:50] LABS: Basophils # (auto) 0.02 K/uL (0-0.2); Basophils % (auto) 0.3 %; Eosinophils % (auto) 2.7 %; Hematocrit (blood only) 38.6 % (42-52); Hemoglobin 12.6 g/dL (14.0-18.0); Immature Granulocytes # (auto) 0.01 K/uL (0.00-0.02); Immature Granulocytes % (auto) 0.1 %; Lymphocytes # (auto) 2.06 K/uL (1.2-3.4); Lymphocytes % (auto) 28.1 %; Mean Corpuscular Hemoglobin 28.1 pg (25-34); Mean Corpuscular Hgb Conc 32.6 g/dL (32-36); Mean Corpuscular Volume 86.2 fL (80-100); Mean Platelet Volume 9.4 fL (7.4-10.4); Monocytes # (auto) 0.74 K/uL (0.11-0.59); Monocytes % (auto) 10.1 %; Neutrophils # (auto) 4.31 K/uL (1.4-6.5); Neutrophils % (auto) 58.7 %; Platelet Count 225 K/uL (130-400); RDW Coefficient of Variation 14.1 % (11.5-14.5); RDW Standard Deviation 44.1 fL (36.4-46.3); Red Blood Count 4.48 M/uL (4.7-6.1); White Blood Count 7.34 K/uL (4.8-10.8)
[2020-10-04 16:01] LABS: INR 1.8 (0.9-1.1); Partial Thromboplastin Ratio 1.3; Partial Thromboplastin Time 36.5 Seconds (21.0-31.0); Prothrombin Time 18.8 Seconds (9.0-12.0)
[2020-10-04 16:14] LABS: Alanine Aminotransferase 31 U/L (12-78); Albumin Level 3.5 gm/dl (3.4-5.0); BUN Creatinine Ratio 21.9 (10-20); Blood Urea Nitrogen 27 mg/dl (7-18); Calcium 8.7 mg/dl (8.5-10.1); Carbon Dioxide 27 mmol/L (21-32); Chloride 106 mmol/L (98-107); Creatinine Clr Calc Pharmacy 39.9 ml/min; Est GFR (African American) 61.8; Est GFR (Non-African American) 53.3; Glucose 116 mg/dl (70-99); Magnesium 2.2 mg/dl (1.8-2.4); Potassium 3.9 mmol/L (3.5-5.1); Sodium 138 mmol/L (136-145)
[2020-10-04 16:19] LABS: Albumin Globulin Ratio 0.9 (0.9-2); Alkaline Phosphatase 91 U/L (45-117); Aspartate Aminotransferase 14 U/L (15-37); Bilirubin,Total 0.4 mg/dl (0.2-1); Globulin 3.7 gm/dl (2.5-4.0); Total Protein 7.2 gm/dl (6.4-8.2); Troponin I < 0.015 ng/ml (0-0.045)
[2020-10-04] MEDS ORDERED: OPTIRAY 320 125ml IV ONE (16:37)
--- NOTE | 2020-10-04 16:58 | CT Scan Report ---
UNENHANCED CT OF THE BRAIN; CT ANGIOGRAM OF THE BRAIN; CT ANGIOGRAM OF THE NECK CLINICAL HISTORY: Strokelike symptoms. COMPARISON STUDY: CT of the brain dated 08/21/2020. CT angiogram of the head and neck dated 08/20/20. TECHNIQUE: Unenhanced axial CT scan of the brain is performed. Subsequently, following the IV adminis tration of 119 of Optiray 320, CT angiogram of the head and neck was performed from the aortic arch t o the vertex. Images are reviewed in the axial, sagittal, and coronal planes. 3-D MIPS images are cre ated and assessed. IV contrast was administered without complication. All measurements were calculate d based on NASCET criteria. A dose lowering technique was utilized adhering to the principles of ALA RA. CT DOSE: 1062.82 mGy.cm FINDINGS: Brain parenchyma: There is age-related involutional change noting moderate confluent subcortical and periventricular microangiopathic disease. There is no hemorrhage, mass effect, or evidence of acute t erritorial ischemia by CT criteria. There is no evidence of enhancing mass lesion on the angiogram ph ase images. The ventricles, sulci, and cisterns are prominent secondary to involutional change. Brar- white matter differentiation is preserved. No extra-axial fluid collection is seen. Mineralization is again seen in the left basal ganglia. Thoracic aorta: There is atherosclerotic calcification of the thoracic aorta. Visualized portions of the thoracic aorta are normal in caliber. The aortic arch demonstrates standard 3-vessel anatomy. Right carotid arterial system: The right common carotid artery is widely patent. Atherosclerotic plaq ue causes less than 50% luminal narrowing at the origin of the right internal carotid artery. The rem ainder of the right internal carotid artery is widely patent, as is the right external carotid artery . Left carotid arterial system: The left common carotid artery is widely patent as are the left interna l and external carotid arteries. Mild plaque is noted in the carotid bulb. Vertebral arteries: The vertebral arteries are widely patent bilaterally and codominant. Subclavian arteries: Widely patent bilaterally. Intracranial vasculature: There is atherosclerotic calcification of the cavernous carotid and vertebr al arteries The internal carotid arteries are patent at the skull base, as are the anterior and middl e cerebral arteries bilaterally. There is mild focal stenosis of the supraclinoid left internal carot id artery on image #97. There is focal high-grade stenosis of the M1 segment of the right middle cere bral artery, best seen on image #91. The vertebrobasilar system and posterior cerebral arteries are p atent. The vertebral arteries are codominant. There is mild aneurysmal dilatation of the right verteb ral artery at the skull base is unchanged. This measures up to 6 mm as seen on image #294. There is m ild focal stenosis of the P1 segment of the right posterior cerebral artery, best seen on image #99. There is no aneurysm, high-grade stenosis, or focal vessel cut off seen throughout the intracranial c irculation. Jugular veins: Patent bilaterally. Dural sinuses: Patent. Lung apices: Partially visualized upper lobe lung parenchyma appears clear. Soft tissues: The visualized pharyngeal soft tissues are normal in appearance noting angiographic pha se technique. The oropharyngeal airway appears widely patent. The salivary and thyroid glands are nor mal in appearance. No cervical lymphadenopathy is seen. Skeletal structures: The skeletal structures are osteopenic. The calvarium appears intact. The cervic al spine is maintained noting multilevel spondylosis. No lytic or blastic lesion is seen. Orbits: The bony orbits are intact. Orbital contents are normal as visualized noting bilateral ocular lens implants. Sinuses and mastoids: There is subtotal opacification of the left sphenoid sinus. Thickening and scle rosis of the sinus wall indicates chronicity. The remaining paranasal sinuses are clear. The mastoid air cells are well pneumatized. IMPRESSION: 1. There is no hemorrhage, mass effect, or evidence of acute territorial ischemia by CT criteria. 2. 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 This is unchanged from previous. 3. 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 This is unchanged from previous. 4. There is mild focal stenosis of the supraclinoid left internal carotid artery and the P1 segment o f the right posterior cerebral artery. These are unchanged from previous. 5. Atherosclerotic plaque causes less than 50% stenosis at the origin of the right internal carotid a rtery. 6. Otherwise unremarkable CT angiogram of the neck. ACT 112: Negative or not required by law. Electronically signed by: Chetan Ramírez M.D. 10/04/2020 4:57 PM
[2020-10-04 17:57] LABS: Appearance Urine Clear (Clear); Bilirubin Urine Negative (Negative); Blood Urine Negative (Negative); Color Urine Yellow; Glucose Urine UA Negative (Negative); Ketones Urine Negative (Negative); Leukocyte Esterase Urine Negative (Negative); Nitrite Urine Negative (Negative); Protein Urine Negative (Negative); Specific Gravity Urine 1.028 (1.000-1.030); Urobilinogen Urine Negative (Negative); pH Urine 6.5 (4.5-7.5)
[2020-10-04] MEDS ORDERED: SODIUM CHLORIDE 0.45 % 1,000 ML IV SCH (18:45)
[2020-10-04] MEDS ORDERED: WARFARIN SOD 5 MG TAB PO ONE (18:49)
--- NOTE | 2020-10-04 18:53 | History & Physical Report ---
Date of Service October 04, 2020 Assessment & Plan (1) Acute confusion: (2) History of CVA (cerebrovascular accident): (3) Aneurysmal dilatation: (4) Middle cerebral artery stenosis: This is an 80-year-old male who has significant past medical history of recent acute right viraj lacunar infarct, history of PE anticoagulated on warfarin, HTN, HLD, CKD stage III, history of lung CA status post resection, history of prostate cancer status post prostatectomy, chronic anemia, pre diabetes and anxiety who presents to ED secondary to confusion and slow to respond starting at 1:30 PM. Patient presents secondary to acute episode of confusion and slow to respond. Patient unable to work remote and having difficulty walking. Currently on my exam he has no neuro focal deficits but will admit for further neurologic work-up. ED provider spoke with neurology. Admit to med telemetry Obtain repeat MRI to rule out additional cerebrovascular event Consult neurology Obtain EEG Continue ASA, statin and warfarin PT/OT IV fluid x1 L due to mild dehydration Patient had echocardiogram during last hospitalization 08/21 which revealed EF 65 to 70%, no ASD or right to left shunt, no valvular abnormality lipid panel/a1c in a.m. (5) History of pulmonary embolism: Continue warfarin, INR 1.8 Home regimen 2 mg Thursday and Thursday, 5 mg all other days (6) HTN (hypertension): BP mildly elevated Continue Coreg and amlodipine Monitor (7) CKD (chronic kidney disease) stage 3, GFR 30-59 ml/min: Baseline creatinine 1.3 BUN/creatinine 27 and 1.25 today Avoid nephrotoxic agent Given mild elevation in BUN will give additional 1 L of IVF (8) Pre-diabetes: a1c 5.7 07/2020 monitor fasting bsg (9) DVT prophylaxis: continue warfarin Disposition: admit to [facility] tele Follow up: PCP Dr. Schumacher upon discharge Pt was seen and examined in collaboration with Dr. Buchanan, please see addendum History of Present Illness Chief Complaint: Confusion and slow to respond starting at 1:30 PM. Primary Care Provider: Ranulfo Schumacher, This is an 80-year-old male who has significant past medical history of recent acute right viraj lacunar infarct, history of PE anticoagulated on warfarin, HTN, HLD, CKD stage III, history of lung CA status post resection, history of prostate cancer status post prostatectomy, chronic anemia and anxiety who presents to ED secondary to confusion and slow to respond starting at 1:30 PM. Of significance patient hospitalized 08/21-08/23 secondary to garbled speech and confusion. He was diagnosed with an acute right viraj lacunar CVA. He was started on 40 mg of Lipitor, ASA and his warfarin was continued.Head CTA at that time revealed mild aneurysmal dilatation of right vertebral artery measuring up to 6 mm, focal high-grade stenosis of M1 segment of middle cerebral artery right, mild focal stenosis of supraclinoid left ICA and P1 segment of right posterior cerebral artery. It was felt acute neurosurgical intervention was not required but possibly recommended outpatient neurovascular consultation. Daughter is at bedside and states that since discharge he has good days and bad days, but today was particularly a bad day. At 11 AM he went to get a laser treatment to his eye and approximately around 1:30 PM he was noted to be more confused, did not understand how to operate remote control, had garbled speech and difficulty walking. Patient does not recall those events but he states waking up this morning around 8 am, which is later than usual, and feeling very tired. He remains very fatigued but otherwise denies ROS. He denies recent fever, chills, sweats, lightheadedness, dizziness, syncope, fall, chest pain, shortness of breath, hemoptysis, nausea, vomiting, abdominal pain. He does have a chronic cough due to history of lung cancer and this is unchanged. He denies any diarrhea, melena or hematochezia. His appetite has been good and typically he has been drinking 4 propels a day, but today he only had coffee. In ED patient remained hemodynamically stable, mildly hypertensive. He underwent head CT and head and neck CTAs. These were unchanged from previous examination in July. He received 500 mL of IVF in ED. Daughter at bedside states he is, "off." Allergies Allergy/AdvReac Type Severity Reaction Status Date / Time oxycodone AdvReac Severe became Verified 08/21/20 12:51 apneic and bradycardic Home Medications Medication Instructions Recorded Confirmed Type citalopram 20 mg PO QAM 08/31/18 10/04/20 History pantoprazole 40 mg PO QAM 08/31/18 10/04/20 History carvedilol 6.25 mg PO QAM 03/09/20 10/04/20 History gabapentin 100 mg PO BID 03/09/20 10/04/20 History multivitamin 1 tab PO HS 03/09/20 10/04/20 History meclizine 12.5 mg PO TID PRN 03/12/20 10/04/20 History amlodipine 2.5 mg PO QAM 05/16/20 10/04/20 History aspirin 81 mg PO QAM 07/04/20 10/04/20 History warfarin 2.5 mg PO MOFR 07/04/20 10/04/20 History warfarin 5 mg PO SUTUWETHSA 07/04/20 10/04/20 History albuterol sulfate 1 - 2 puff INHALATION DIRECTED 07/07/20 10/04/20 History PRN polyethylene glycol 3350 [Miralax] 17 g PO DAILY PRN #30 ea 07/09/20 10/04/20 Rx atorvastatin 40 mg PO HS 10/04/20 10/04/20 History cholecalciferol (vitamin D3) 25 mcg PO DAILY 10/04/20 10/04/20 History Past Med/Surg History Medical History (Updated 10/04/20 @ 19:07 by Adriana Morales PA-C) Asthma Using albuterol inhaler TID now since PEs. Previously wasn't using inhaler at all. Cancer LUNG AND PROSTATE CANCER, both treated surgically Degenerative disc disease GERD (gastroesophageal reflux disease) HTN (hypertension) Migraine HX OF On anticoagulant therapy Osteoarthritis Pre-diabetes Pulmonary embolism hospitalized 03/12/2020-03/15/2020 [facility] w/ BL PE; unk etiology; on coumadin Surgical History History of adenoidectomy History of carpal tunnel release RT X 2 LEFT X 3 History of cataract surgery LEFT/RIGHT History of colonoscopy History of esophagogastroduodenoscopy (EGD) History of herniorrhaphy RT INGUINAL History of laminectomy LUMBAR History of lobectomy of lung RT MIDDLE LOBE History of prostatectomy History of tonsillectomy History of tooth extraction Status post reverse arthroplasty of left shoulder (~05/2020) Family History Father FHx: prostate cancer Grandfather (Paternal) FHx: prostate cancer Social History Smoking Status: Former smoker Tobacco Type: Cigars Years Smoked: 50; Second Hand Exposure: No; Hx Alcohol Use: No Hx Substance Use: No Preferred Language: Slovak Communication Ability: Effective 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 Beliefs That Will Affect Care: None marital status: Current Living Situation: Spouse Feels Safe at Home: Yes Assistive Devices: Glasses Review of Systems Review of Systems: All systems reviewed & are unremarkable except as noted in HPI & below Physical Exam Physical Exam: Constitutional: WD/WN, male, vitals as above, NAD, sitting up in bed, pleasant, conversing easily Head: Normocephalic, Atraumatic Eyes: PERRL, conjunctivae normal, anicteric sclerae ENMT: external ear and nose normal, oropharynx normal Neck: trachea midline, no thyromegaly normal visual inspection Respiratory: normal respiratory effort, lungs clear to auscultation, no wheeze, rales, rhonchi. Normal insp/exp effort, no accessory muscle use Cardiovascular: RRR, no murmur, no edema Vessels: no JVD or carotid bruit Chest: normal inspection of chest Abdomen: normal bowel sounds, soft, nontender, no hepatosplenomegaly Musculoskeletal: no cyanosis or clubbing, extremities motor strength 5/5 Skin: no rashes, warm and dry normal turgor Neurologic: PERRL, EOMI, accommodation nl, no face palsy, no dysarthria CN's II-XI intact bilaterally and moves all extremities, negative pronator drift, [id number] intact, [id number] intact, fine motor movements intact Psychiatric: A+Ox3, euthymic affect Lymphatic: no cervical or axillary lymphadenopathy : deferred Results & Data Results & Data ([facility]) Vital Signs (Past 12 Hours) Vital Signs Temp Pulse Pulse Resp BP BP Pulse Ox 10/04/20 18:00 76 15 151/95 H 98 10/04/20 17:40 76 10/04/20 17:30 73 13 158/93 H 95 10/04/20 17:04 70 17 167/92 H 99 10/04/20 16:50 72 10/04/20 16:47 73 15 162/86 H 96 10/04/20 16:44 73 10/04/20 16:30 79 15 160/96 H 95 10/04/20 16:15 79 15 142/91 H 95 10/04/20 16:10 78 96 10/04/20 16:06 77 80 16 149/89 H 96 10/04/20 16:05 78 15 149/89 H 97 10/04/20 15:43 79 15 153/94 H 10/04/20 15:11 36.8 C 82 19 148/82 H 96 Laboratory Results Short CBC 10/04/20 10/04/20 10/04/20 Range/Units 15:40 15:40 15:40 WBC 7.34 (4.8-10.8) K/uL RBC 4.48 L (4.7-6.1) M/uL Hgb 12.6 L (14.0-18.0) g/dL Hct 38.6 L (42-52) % MCV 86.2 (80-100) fL MCH 28.1 (25-34) pg MCHC 32.6 (32-36) g/dL RDW Std Deviation 44.1 (36.4-46.3) fL RDW Coeff of Marely 14.1 (11.5-14.5) % Plt Count 225 (130-400) K/uL MPV 9.4 (7.4-10.4) fL Immature Gran % (Auto) 0.1 % Neut % (Auto) 58.7 % Lymph % (Auto) 28.1 % [place] % (Auto) 10.1 % Eos % (Auto) 2.7 % Baso % (Auto) 0.3 % Neut # (Auto) 4.31 (1.4-6.5) K/uL Lymph # (Auto) 2.06 (1.2-3.4) K/uL [place] # (Auto) 0.74 H (0.11-0.59) K/uL Eos # (Auto) 0.20 (0-0.5) K/uL Baso # (Auto) 0.02 (0-0.2) K/uL Immature Gran # (Auto) 0.01 (0.00-0.02) K/uL PT (9.0-12.0) Seconds INR (0.9-1.1) APTT (21.0-31.0) Seconds PTT Ratio Sodium (136-145) mmol/L Potassium (3.5-5.1) mmol/L Chloride (98-107) mmol/L Carbon Dioxide (21-32) mmol/L Anion Gap (3-11) BUN (7-18) mg/dl Creatinine (0.6-1.4) mg/dl Est Cr Clr Drug Dosing ml/min Est GFR ( Amer) Est GFR (Non-Af Amer) BUN/Creatinine Ratio (10-20) Glucose (70-99) mg/dl POC Glucose (70-99) mg/dl Calcium (8.5-10.1) mg/dl Magnesium (1.8-2.4) mg/dl Total Bilirubin (0.2-1) mg/dl AST (15-37) U/L ALT (12-78) U/L Alkaline Phosphatase (45-117) U/L Ammonia 24.0 (11-32) umol/L Troponin I (0-0.045) ng/ml Total Protein (6.4-8.2) gm/dl Albumin (3.4-5.0) gm/dl Globulin (2.5-4.0) gm/dl Albumin/Globulin Ratio (0.9-2) Urine Color Urine Appearance (Clear) Urine pH (4.5-7.5) Ur Specific [place] (1.000-1.030) Urine Protein (Negative) Urine Glucose (UA) (Negative) Urine Ketones (Negative) Urine Blood (Negative) Urine Nitrite (Negative) Urine Bilirubin (Negative) Urine Urobilinogen (Negative) Ur Leukocyte Esterase (Negative) SARS-CoV-2 Ag (Rapid) (Negative) Blood Type B Positive Antibody Screen NEGATIVE 10/04/20 10/04/20 10/04/20 Range/Units 15:40 15:40 16:01 WBC (4.8-10.8) K/uL RBC (4.7-6.1) M/uL Hgb (14.0-18.0) g/dL Hct (42-52) % MCV (80-100) fL MCH (25-34) pg MCHC (32-36) g/dL RDW Std Deviation (36.4-46.3) fL RDW Coeff of Marely (11.5-14.5) % Plt Count (130-400) K/uL MPV (7.4-10.4) fL Immature Gran % (Auto) % Neut % (Auto) % Lymph % (Auto) % [place] % (Auto) % Eos % (Auto) % Baso % (Auto) % Neut # (Auto) (1.4-6.5) K/uL Lymph # (Auto) (1.2-3.4) K/uL [place] # (Auto) (0.11-0.59) K/uL Eos # (Auto) (0-0.5) K/uL Baso # (Auto) (0-0.2) K/uL Immature Gran # (Auto) (0.00-0.02) K/uL PT 18.8 H (9.0-12.0) Seconds INR 1.8 H (0.9-1.1) APTT 36.5 H (21.0-31.0) Seconds PTT Ratio 1.3 Sodium 138 (136-145) mmol/L Potassium 3.9 (3.5-5.1) mmol/L Chloride 106 (98-107) mmol/L Carbon Dioxide 27 (21-32) mmol/L Anion Gap 5.0 (3-11) BUN 27 H (7-18) mg/dl Creatinine 1.25 (0.6-1.4) mg/dl Est Cr Clr Drug Dosing 39.9 ml/min Est GFR ( Amer) 61.8 Est GFR (Non-Af Amer) 53.3 BUN/Creatinine Ratio 21.9 H (10-20) Glucose 116 H (70-99) mg/dl POC Glucose 108 H (70-99) mg/dl Calcium 8.7 (8.5-10.1) mg/dl Magnesium 2.2 (1.8-2.4) mg/dl Total Bilirubin 0.4 (0.2-1) mg/dl AST 14 L (15-37) U/L ALT 31 (12-78) U/L Alkaline Phosphatase 91 (45-117) U/L Ammonia (11-32) umol/L Troponin I < 0.015 (0-0.045) ng/ml Total Protein 7.2 (6.4-8.2) gm/dl Albumin 3.5 (3.4-5.0) gm/dl Globulin 3.7 (2.5-4.0) gm/dl Albumin/Globulin Ratio 0.9 (0.9-2) Urine Color Urine Appearance (Clear) Urine pH (4.5-7.5) Ur Specific [place] (1.000-1.030) Urine Protein (Negative) Urine Glucose (UA) (Negative) Urine Ketones (Negative) Urine Blood (Negative) Urine Nitrite (Negative) Urine Bilirubin (Negative) Urine Urobilinogen (Negative) Ur Leukocyte Esterase (Negative) SARS-CoV-2 Ag (Rapid) (Negative) Blood Type Antibody Screen 10/04/20 10/04/20 Range/Units 17:01 Unknown WBC (4.8-10.8) K/uL RBC (4.7-6.1) M/uL Hgb (14.0-18.0) g/dL Hct (42-52) % MCV (80-100) fL MCH (25-34) pg MCHC (32-36) g/dL RDW Std Deviation (36.4-46.3) fL RDW Coeff of Marely (11.5-14.5) % Plt Count (130-400) K/uL MPV (7.4-10.4) fL Immature Gran % (Auto) % Neut % (Auto) % Lymph % (Auto) % [place] % (Auto) % Eos % (Auto) % Baso % (Auto) % Neut # (Auto) (1.4-6.5) K/uL Lymph # (Auto) (1.2-3.4) K/uL [place] # (Auto) (0.11-0.59) K/uL Eos # (Auto) (0-0.5) K/uL Baso # (Auto) (0-0.2) K/uL Immature Gran # (Auto) (0.00-0.02) K/uL PT (9.0-12.0) Seconds INR (0.9-1.1) APTT (21.0-31.0) Seconds PTT Ratio Sodium (136-145) mmol/L Potassium (3.5-5.1) mmol/L Chloride (98-107) mmol/L Carbon Dioxide (21-32) mmol/L Anion Gap (3-11) BUN (7-18) mg/dl Creatinine (0.6-1.4) mg/dl Est Cr Clr Drug Dosing ml/min Est GFR ( Amer) Est GFR (Non-Af Amer) BUN/Creatinine Ratio (10-20) Glucose (70-99) mg/dl POC Glucose (70-99) mg/dl Calcium (8.5-10.1) mg/dl Magnesium (1.8-2.4) mg/dl Total Bilirubin (0.2-1) mg/dl AST (15-37) U/L ALT (12-78) U/L Alkaline Phosphatase (45-117) U/L Ammonia (11-32) umol/L Troponin I (0-0.045) ng/ml Total Protein (6.4-8.2) gm/dl Albumin (3.4-5.0) gm/dl Globulin (2.5-4.0) gm/dl Albumin/Globulin Ratio (0.9-2) Urine Color Yellow Urine Appearance Clear (Clear) Urine pH 6.5 (4.5-7.5) Ur Specific [place] 1.028 (1.000-1.030) Urine Protein Negative (Negative) Urine Glucose (UA) Negative (Negative) Urine Ketones Negative (Negative) Urine Blood Negative (Negative) Urine Nitrite Negative (Negative) Urine Bilirubin Negative (Negative) Urine Urobilinogen Negative (Negative) Ur Leukocyte Esterase Negative (Negative) SARS-CoV-2 Ag (Rapid) Negative (Negative) Blood Type Antibody Screen BMP 10/04/20 15:40 Sodium 138 Potassium 3.9 Chloride 106 Carbon Dioxide 27 BUN 27 H Creatinine 1.25 Glucose 116 H Calcium 8.7 Cardiac Enzymes 10/04/20 Range/Units 15:40 Troponin I < 0.015 (0-0.045) ng/ml Liver Function 10/04/20 Range/Units 15:40 Total Bilirubin 0.4 (0.2-1) mg/dl AST 14 L (15-37) U/L ALT 31 (12-78) U/L Alkaline Phosphatase 91 (45-117) U/L Albumin 3.5 (3.4-5.0) gm/dl Urine 10/04/20 Range/Units 17:01 Urine Color Yellow Urine Appearance Clear (Clear) Urine pH 6.5 (4.5-7.5) Ur Specific [place] 1.028 (1.000-1.030) Urine Protein Negative (Negative) Urine Glucose (UA) Negative (Negative) Diagnostic Findings Head/Neck CTA/Head CT: IMPRESSION: 1. There is no hemorrhage, mass effect, or evidence of acute territorial ischemia by CT criteria. 2. 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 This is unchanged from previous. 3. 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 This is unchanged from previous. 4. There is mild focal stenosis of the supraclinoid left internal carotid artery and the P1 segment of the right posterior cerebral artery. These are unchanged from previous. 5. Atherosclerotic plaque causes less than 50% stenosis at the origin of the right internal carotid artery. 6. Otherwise unremarkable CT angiogram of the neck. CXR: IMPRESSION: No active disease in the chest. Medications Administered Discontinued Medications Sodium Chloride (Nss 1000ml) 500 mls @ 999 mls/hr IV .Q31M ONE Stop: 10/04/20 15:55 Last Infusion: 10/04/20 17:45 Dose: 0 mls/hr Documented by: [id number] Admin: 10/04/20 16:45 Dose: 999 mls/hr Documented by: [id number] Ioversol (Optiray 320 125ml) 119 ml IV ONCE ONE Stop: 10/04/20 16:38 Last Admin: 10/04/20 16:37 Dose: 119 ml Documented by: [id number] ECG Rate (beats per minute): 78 Rhythm: normal sinus Code Status & VTE Plan Code Status Full Code VTE Prophylaxis Plan VTE Prophylaxis will be ordered: Yes Reason for no VTE drug order: Contraindicated (on coumadin) Supervising Physician Co-Signing Physician Notes Attending addendum The patient was seen and examined in the emergency room in presence of the daughter He is an 80-year-old man with a recent acute cerebrovascular stroke during his recent admission in July of this year which was treated with aspirin and Coumadin. 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 Questionable memory impairment but otherwise no focal sensory and motor deficit appreciated His admission labs and imaging studies reviewed Likely has had an attack of TIA/acute confusion which is resolving Initial CT scan of the head and CTA were unremarkable We will get MRI of the head and neuro consult tomorrow His INR is 1.8 and he will get 5 mg Coumadin today and will continue with his aspirin Agree with assessment and plan as outlined above by Adriana Buchanan (1) CKD (chronic kidney disease) stage 3, GFR 30-59 ml/min Chronic kidney disease stage 3 subtype: unspecified whether 3a or 3b Qualified Code(s): N18.30 - Chronic kidney disease, stage 3 unspecified (2) Middle cerebral artery stenosis Laterality: right Qualified Code(s): I66.01 - Occlusion and stenosis of right middle cerebral artery
--- NOTE | 2020-10-04 18:58 | Communication Note ---
Date of Service: October 04, 2020;Duplicate note He is an 80-year-old man with a recent acute cerebrovascular stroke during his recent admission in July of this year which was treated with aspirin and Coumadin. 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 Questionable memory impairment but otherwise no focal sensory and motor deficit appreciated His admission labs and imaging studies reviewed Likely has had an attack of TIA which is resolving Initial CT scan of the head and CTA were unremarkable We will get MRI of the head and neuro consult tomorrow His INR is 1.8 and he will get 5 mg Coumadin today and will continue with his aspirin Agree with assessment and plan as outlined above by Adriana Morales PA-C. Dr Luiza Buchanan
[2020-10-04] MEDS ORDERED: GADOBUTROL 65ML VIAL IV ONE (19:25)
--- NOTE | 2020-10-04 20:05 | Magnetic Resonance Report ---
MRI OF THE BRAIN COMBO CLINICAL HISTORY: Strokelike symptoms. COMPARISON STUDY: CT of the brain dated 10/04/2020. MRI of the brain dated 08/20/2020. TECHNIQUE: MRI of the brain was performed utilizing various T1 and T2-weighted sequences in the axial , sagittal, and coronal planes. Contrast-enhanced sequences were acquired following the administratio n of 7 cc of Gadavist. FINDINGS: Brain parenchyma: There is age-related involutional change noting moderate confluent subcortical and periventricular microangiopathic disease. There is a 10 mm focus of restricted diffusion identified i n the left thalamus/internal capsule consistent with an acute to subacute lacunar infarct. No additio nal foci of acute ischemia are identified. A small chronic lacunar infarct is noted in the right viraj . Numerous prominent perivascular spaces are seen in the basal ganglia. There is no hemorrhage or mas s effect. No enhancing mass lesion is identified on the postcontrast images. Brar-white matter differ entiation is preserved. No extra-axial fluid collection is seen. The cerebellar tonsils are normal in configuration. Ventricles, sulci, and cisterns: Prominent secondary to involutional change. Pituitary and sella: Unremarkable. Intracranial vasculature: Normal flow voids are maintained at the skull base. Orbits: The bony orbits are grossly intact. Orbital contents are normal in appearance noting bilatera l ocular lens implants. Sinuses and mastoids: There is near complete opacification of the left sphenoid sinus. The remaining paranasal sinuses and the mastoid air cells are clear. Calvarium: Unremarkable. Cervical cord: Partially visualized cervical spinal cord is normal in morphology and signal intensity . IMPRESSION: 1. There is a 10 mm focus of restricted diffusion identified in the left internal capsule/thalamus co nsistent with an acute to subacute lacunar infarct. 2. No additional foci of acute ischemia are identified. 3. There is no hemorrhage or mass effect. ACT 112: Negative or not required by law. Electronically signed by: Chetan Ramírez M.D. 10/04/2020 8:04 PM
[2020-10-04] MEDS ORDERED: ONDANSETRON INJ 2 MG/ML 2 ML VIAL IV PRN (20:10)
[2020-10-04] MEDS ORDERED: ACETAMINOPHEN 325 MG TAB PO PRN (20:10)
[2020-10-04] MEDS ORDERED: POLYETHYLENE (MIRALAX) 17 GM PACK PO PRN (20:10)
[2020-10-04] MEDS ORDERED: MAGNESIUM HYDROXIDE SUSP 30 ML UDC PO PRN (20:10)
[2020-10-04] MEDS ORDERED: PHARMACIST DISCHARGE MED REC CONSULT PRN (20:10)
[2020-10-04] MEDS ORDERED: ALBUTEROL HFA 8 GM INHALER INH PRN (20:10)
[2020-10-04] MEDS ORDERED: ALUMINUM/MAGNESIUM SUSP 30 ML UDC PO PRN (20:10)
[2020-10-04] MEDS ORDERED: ASPIRIN 300 MG SUPP PR ONE (20:40)
[2020-10-04] MEDS ORDERED: METOPROLOL TARTRATE 1 MG/ML VIAL IV PRN (20:41)
[2020-10-04] MEDS: GABAPENTIN 100 MG CAP PO SCH (21:28)
[2020-10-04] MEDS: MULTIVITAMIN TAB PO SCH (21:28)
[2020-10-04] MEDS: ATORVASTATIN 40 MG TAB PO SCH (21:28)
[2020-10-05 06:08] LABS: Basophils # (auto) 0.02 K/uL (0-0.2); Basophils % (auto) 0.3 %; Eosinophils % (auto) 3.1 %; Hematocrit (blood only) 37.8 % (42-52); Hemoglobin 12.5 g/dL (14.0-18.0); Immature Granulocytes # (auto) 0.01 K/uL (0.00-0.02); Immature Granulocytes % (auto) 0.2 %; Lymphocytes # (auto) 2.18 K/uL (1.2-3.4); Lymphocytes % (auto) 33.7 %; Mean Corpuscular Hemoglobin 28.5 pg (25-34); Mean Corpuscular Hgb Conc 33.1 g/dL (32-36); Mean Corpuscular Volume 86.1 fL (80-100); Mean Platelet Volume 9.5 fL (7.4-10.4); Monocytes # (auto) 0.67 K/uL (0.11-0.59); Monocytes % (auto) 10.4 %; Neutrophils # (auto) 3.38 K/uL (1.4-6.5); Neutrophils % (auto) 52.3 %; Platelet Count 212 K/uL (130-400); RDW Coefficient of Variation 14.2 % (11.5-14.5); RDW Standard Deviation 44.5 fL (36.4-46.3); Red Blood Count 4.39 M/uL (4.7-6.1); White Blood Count 6.46 K/uL (4.8-10.8)
[2020-10-05 06:23] LABS: INR 1.7 (0.9-1.1); Prothrombin Time 17.9 Seconds (9.0-12.0)
[2020-10-05 06:38] LABS: BUN Creatinine Ratio 17.3 (10-20); Calcium 8.9 mg/dl (8.5-10.1); Creatinine Clr Calc Pharmacy 39.2 ml/min; Est GFR (African American) 66.9; Est GFR (Non-African American) 57.7
[2020-10-05 07:50] LABS: Estimated Average Glucose 120 mg/dl; Hemoglobin A1C 5.8 % (4.5-5.6)
[2020-10-05] MEDS: ASPIRIN 81 MG ECTAB PO SCH (09:53)
[2020-10-05] MEDS: carvediloL 6.25 MG TAB PO SCH (09:53)
[2020-10-05] MEDS: CITALOPRAM 20 MG TAB PO SCH (09:53)
[2020-10-05] MEDS: amLODIPine BESYLATE 5 MG TAB PO SCH (09:54)
[2020-10-05] MEDS: GABAPENTIN 100 MG CAP PO SCH ×2 (09:54→19:59)
[2020-10-05] MEDS: PANTOprazole 40 MG TAB PO SCH (09:55)
[2020-10-05] MEDS: CHOLECALCIFEROL 1,000 UNITS 25 MCG TAB PO SCH (09:55)
--- NOTE | 2020-10-05 11:54 | Electrocardiogram Report ---
Test Reason : Blood Pressure : / mmHG Vent. Rate : 078 BPM Atrial Rate : 078 BPM P-R Int : 174 ms QRS Dur : 076 ms QT Int : 390 ms P-R-T Axes : 020 -15 -09 degrees QTc Int : 444 ms Normal sinus rhythm Minimal voltage criteria for LVH, may be normal variant Poor R wave progression, consider anterior MT vs. lead placement vs. LVH Abnormal ECG Borderline ECG When compared with ECG of 21-AUG-2020 08:41, No significant change was found Confirmed by Alexander Graves ([id number]) on 10/05/2020 11:54:07 AM Referred By: REFERRED SELF Confirmed By:Alexander Graves
--- NOTE | 2020-10-05 12:57 | Hospitalist Progress Note ---
Date of Service October 05, 2020 Assessment & Plan (1) Acute ischemic stroke: This is an 80-year-old male who has significant past medical history of recent acute right viraj lacunar infarct, history of PE anticoagulated on warfarin, HTN, HLD, CKD stage III, history of lung CA status post resection, history of prostate cancer status post prostatectomy, chronic anemia, pre diabetes and anxiety who presents to ED secondary to confusion and slow to respond starting at 1:30 PM. Patient presents secondary to acute episode of confusion and slow to respond. Patient unable to work remote and having difficulty walking. Currently on my exam he has no neuro focal deficits but will admit for further neurologic work-up. ED provider spoke with neurology. CT of the head and CTA of the head and neck did not show any significant new findings. MRI of the brain did show 10 mm focus of restricted diffusion identified in the left internal capsule/thalamus consistent with an acute to subacute lacunar infarct Discussed with the neurologist no further anticoagulation with heparin at this time as this is very small vessel disease He remains free of any symptoms Awaiting neurology evaluation Likely be discharged this afternoon following neuro evaluation (2) Acute confusion: Likely secondary to acute stroke Seems to resolve this morning (3) History of CVA (cerebrovascular accident): Has been on baby aspirin and Coumadin (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: CTA confirmed that stenosis and that was there before (6) History of pulmonary embolism: Continue warfarin, INR 1.8 Home regimen 2 mg Thursday and Thursday, 5 mg all other days His INR is 1.7 as of today and received 5 mg of Coumadin We will continue with his current dose of Coumadin but will give 5 mg today (7) HTN (hypertension): BP mildly elevated Continue Coreg and amlodipine Monitor-blood pressure remains controlled (8) CKD (chronic kidney disease) stage 3, GFR 30-59 ml/min: Baseline creatinine 1.3 BUN/creatinine 27 and 1.25 today Avoid nephrotoxic agent Given mild elevation in BUN will give additional 1 L of IVF (9) Pre-diabetes: a1c 5.7 07/2020 monitor fasting bsg (10) DVT prophylaxis: continue warfarin Disposition: admit to [facility] tele Follow up: PCP Dr. Schumacher upon discharge Admission and Anticipated Discharge Date Admission Date: October 04, 2020 Subjective 10/05/2020 The patient was seen and examined in medical telemetry unit He was admitted with acute confusion/difficulty in finding words/strokelike symptoms He has been feeling a lot better today and does not complain any significant symptoms Wants to go home this afternoon Review of Systems Review of Systems: All systems reviewed and are unremarkable except as noted below Neurologic: no gait abnormality, no unsteadiness, no paralysis, no numbness, no headache(s) and no confusion Physical Exam Physical Exam: Sitting at the edge of the bed without any acute symptoms Constitutional: well developed and well nourished; not ill appearing Eyes: PERRL, conjunctivae normal, anicteric sclerae ENMT: external ear and nose normal, oropharynx normal Neck: trachea midline, no thyromegaly Respiratory: no respiratory distress Auscultation: lungs clear to auscultation bilaterally Cardiovascular: Rate/Rhythm: regular rate and regular rhythm Heart Sounds: no murmur Extremities: no edema Gastrointestinal (Abdomen): Inspection/Auscultation: abdomen normal to inspection and normal bowel sounds; abdomen not distended Percussion/Pa lpation: abdomen soft; abdomen nontender Musculoskeletal: No acute arthritis in any joint Neurologic: Alert, awake and oriented x3. No focal sensory and motor deficit appreciated Psychiatric: A+Ox3, euthymic affect Lymphatic: no cervical or axillary lymphadenopathy Results & Data Results & Data ([facility]) Vital Signs (Past 12 Hours) Vital Signs Temp Pulse Pulse Resp BP Pulse Ox 10/05/20 11:42 36.9 C 86 18 152/81 H 93 10/05/20 07:53 36.6 C 85 18 158/88 H 96 10/05/20 07:21 79 10/05/20 04:29 36.7 C 82 18 148/52 H 97 Laboratory Results Short CBC 10/04/20 10/05/20 Range/Units 15:40 05:40 WBC 7.34 6.46 (4.8-10.8) K/uL Hgb 12.6 L 12.5 L (14.0-18.0) g/dL Hct 38.6 L 37.8 L (42-52) % Plt Count 225 212 (130-400) K/uL BMP 10/04/20 10/05/20 15:40 05:40 Sodium 138 138 Potassium 3.9 4.0 Chloride 106 106 Carbon Dioxide 27 27 BUN 27 H 20 H Creatinine 1.25 1.17 Glucose 116 H 79 Calcium 8.7 8.9 Cardiac Enzymes 10/04/20 Range/Units 15:40 Troponin I < 0.015 (0-0.045) ng/ml Liver Function 10/04/20 Range/Units 15:40 Total Bilirubin 0.4 (0.2-1) mg/dl AST 14 L (15-37) U/L ALT 31 (12-78) U/L Alkaline Phosphatase 91 (45-117) U/L Albumin 3.5 (3.4-5.0) gm/dl Urine 10/04/20 Range/Units 17:01 Urine Color Yellow Urine Appearance Clear (Clear) Urine pH 6.5 (4.5-7.5) Ur Specific [place] 1.028 (1.000-1.030) Urine Protein Negative (Negative) Urine Glucose (UA) Negative (Negative) Medications Administered Current Inpatient Medications Acetaminophen (Acetaminophen 325 Mg Tab) 650 mg PO Q4H PRN PRN Reason: Pain or Fever Stop: 11/03/20 20:09 Al Hydrox/Mg Hydrox/Simethicone (Aluminum/Magnesium Susp 30 Ml Udc) 15 ml PO Q4H PRN PRN Reason: Dyspepsia Stop: 11/03/20 20:09 Albuterol (Albuterol Hfa 8 Gm Inhaler) 1 puffs INH Q4H PRN PRN Reason: Shortness Of Breath Or Wheezin Stop: 11/03/20 20:09 Amlodipine Besylate (Amlodipine Besylate 5 Mg Tab) 2.5 mg PO [facility] Stop: 11/04/20 08:59 Last Admin: 10/05/20 09:54 Dose: 2.5 mg Documented by: Aspirin (Aspirin 81 Mg Ectab) 81 mg PO [facility] Stop: 11/04/20 08:59 Last Admin: 10/05/20 09:53 Dose: 81 mg Documented by: Atorvastatin Calcium (Atorvastatin 40 Mg Tab) 40 mg PO [facility] Stop: 11/03/20 20:59 Last Admin: 10/04/20 21:28 Dose: Not Given Documented by: Carvedilol (Carvedilol 6.25 Mg Tab) 6.25 mg PO [facility] Stop: 11/04/20 08:59 Last Admin: 10/05/20 09:53 Dose: 6.25 mg Documented by: Citalopram Hydrobromide (Citalopram 20 Mg Tab) 20 mg PO QAM [facility] Stop: 11/04/20 08:59 Last Admin: 10/05/20 09:53 Dose: 20 mg Documented by: Gabapentin (Gabapentin 100 Mg Cap) 100 mg PO BID [facility] Stop: 11/03/20 20:59 Last Admin: 10/05/20 09:54 Dose: 100 mg Documented by: Magnesium Hydroxide (Magnesium Hydroxide Susp 30 Ml Udc) 30 ml PO Q12H PRN PRN Reason: Constipation Stop: 11/03/20 20:09 Metoprolol Tartrate (Metoprolol Tartrate 1 Mg/Ml Vial) 5 mg IV Q6 PRN PRN Reason: Hypertension Stop: 11/04/20 00:00 Miscellaneous Information (Pharmacist Discharge Med Rec Consult) 1 ea N/A UD PRN PRN Reason: Consult Stop: 11/03/20 20:09 Multivitamins (Multivitamin Tab) 1 tab PO HS [facility] Stop: 11/03/20 20:59 Last Admin: 10/04/20 21:28 Dose: Not Given Documented by: Ondansetron HCl (Ondansetron Inj 2 Mg/Ml 2 Ml Vial) 4 mg IV Q6H PRN PRN Reason: Nausea Stop: 11/03/20 20:09 Pantoprazole Sodium (Pantoprazole 40 Mg Tab) 40 mg PO QAM [facility] Stop: 11/04/20 08:59 Last Admin: 10/05/20 09:55 Dose: 40 mg Documented by: Polyethylene Glycol (Polyethylene (Miralax) 17 Gm Pack) 17 gm PO DAILY PRN PRN Reason: Constipation Stop: 11/03/20 20:09 Vitamin D (Cholecalciferol 1,000 Units 25 Mcg Tab) 1,000 units PO DAILY [facility] Stop: 11/04/20 08:59 Last Admin: 10/05/20 09:55 Dose: 1,000 units Documented by: Warfarin Sodium (Warfarin Sod 2.5 Mg Tab) 2.5 mg PO [id number] [facility] Stop: 11/04/20 15:59 Warfarin Sodium (Warfarin Sod 5 Mg Tab) 5 mg PO [id number] [facility] Stop: 11/05/20 15:59 (1) Middle cerebral artery stenosis Laterality: right Qualified Code(s): I66.01 - Occlusion and stenosis of right middle cerebral artery (2) CKD (chronic kidney disease) stage 3, GFR 30-59 ml/min Chronic kidney disease stage 3 subtype: unspecified whether 3a or 3b Qualified Code(s): N18.30 - Chronic kidney disease, stage 3 unspecified
--- NOTE | 2020-10-05 14:08 | Neurology Consultation ---
Date of Consultation October 05, 2020 Assessment & Plan (1) Acute ischemic stroke: 1. optimize INR 2.0-3.0- was subtherapeutic on admission 2. continue aspirin 81 mg for now 3. optimize HTN HLD, DM, LDL <70 4. PT/OT/speech for any discharge needs 5. ZIO as outpatient 6. MRI reviewed new 10 mm left internal capsule thalamus lacunar infarct- small vessel 7. follow up with neurology in 4-6 weeks- appointment has been requested. Present on Admission?: Yes (2) Acute confusion: 1. currently back to baseline Present on Admission?: Yes (3) History of pulmonary embolism: 1. coumadin need INR 2.0-3.0 needs to have a discussion with PCP for change to novel anticoagulant 2. if had to control with coumadin, Eliquis may be a consideration Present on Admission?: Yes Supervising Physician Co-Signing Physician Notes I have seen and discussed above patient with Dr Db Thomson, neurology I have examined and interviewed Mr. French today reviewed his chart his imaging studies and have discussed his case with Florencia Arana PA-C along with one of his family members by telephone and Florencia Arana had been in contact with them earlier I know this man from outpatient visits and from her prior pontine CVA he had felt to be due to small vessel disease manifested by some garbled speech and dystaxia and occurring in the setting of chronic Coumadin therapy for DVT. 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 I think he is having some word finding issues as well although the deficits are subtle I really do not see any drift or pronation sign clumsiness or hemiparesis MRI has shown evidence for a new infarction deep in the left internal capsule area again more consistent with a small vessel event but unfortunately an embolic one could not be totally excluded He is not known to be in atrial fibrillation he is certainly not in it today by exam but he remains as part of the differential diagnosis for recurrent strokes He did have a subtherapeutic INR but has been compliant with his aspirin At this point I continue to feel that on statistical grounds this is a another small vessel event and I think he should have his Coumadin obviously raised back into the therapeutic range continue the low-dose baby aspirin, consider discussion about switching over to Eliquis or another one of the new novel anticoagulants (his outpatient control on Coumadin has been somewhat erratic) and have a Zio patch to monitor him for atrial fibrillation. After that he should be seen in neurology clinic for review I do not think he is going to need rehabilitation at this point as he seems to be significantly improved and I think family agrees although the do not feel he is back to his baseline and he probably will not be for a week or more but I think he may be able to go home rather than considering a rehabilitation stay Feelings have been communicated to Dr. Buchanan who is caring for him and if things look well tomorrow and his INR is back in range I think he could be discharged with the above plans put in place. I would do not need to see him for discharge unless things would have changed for the worse. I will check in by chart review on my computer and certainly will take a look at him if I come into the hospital for another consultation tomorrow afternoon Db Thomson MD History of Present Illness Reason for Consultation: stroke like sx, recent viraj CVA Requesting Physician: Pauly Buchanan MD Attending Physician: Pauly Buchanan MD History of Present Illness Mor is a 80 year old male with a PMH- acute right viraj lacunar infarct 08/21/2020, history of PE anticoagulated on warfarin, HTN, HLD, CKD III, lung CA status post resection, history of prostate cancer status post prostatectomy, chronic anemia and anxiety. He presented to [facility] ED secondary to confusion and slow to respond. During his previous hospitalization 08/21-08/23 he presented with garbled speech and confusion. He was found to have a right viraj lacunar CVA. He was started on 40 mg of Lipitor, ASA and his warfarin was continued. After he had laser treatment to his eye he was more confused, he was confused and could not operate remote control, had garbled speech and difficulty walking. He does not recall these events but did wake in the am more tired than usual. He remains very fatigued but otherwise denies ROS. He does have a chronic cough due to history of lung cancer and this is unchanged. He is able to call his and son on his cell phone without assistance. denies CP, SOB, abdominal pain, one sided weakness, numbness tingling, dizziness, vision changes. Allergies Allergy/AdvReac Type Severity Reaction Status Date / Time oxycodone AdvReac Severe became Verified 08/21/20 12:51 apneic and bradycardic Home Medications Medication Instructions Recorded Confirmed Type citalopram 20 mg PO QAM 08/31/18 10/04/20 History pantoprazole 40 mg PO QAM 08/31/18 10/04/20 History carvedilol 6.25 mg PO QAM 03/09/20 10/04/20 History gabapentin 100 mg PO BID 03/09/20 10/04/20 History multivitamin 1 tab PO HS 03/09/20 10/04/20 History meclizine 12.5 mg PO TID PRN 03/12/20 10/04/20 History amlodipine 2.5 mg PO QAM 05/16/20 10/04/20 History aspirin 81 mg PO QAM 07/04/20 10/04/20 History warfarin 2.5 mg PO MOFR 07/04/20 10/04/20 History warfarin 5 mg PO SUTUWETHSA 07/04/20 10/04/20 History albuterol sulfate 1 - 2 puff INHALATION DIRECTED 07/07/20 10/04/20 History PRN polyethylene glycol 3350 [Miralax] 17 g PO DAILY PRN #30 ea 07/09/20 10/04/20 Rx atorvastatin 40 mg PO HS 10/04/20 10/04/20 History cholecalciferol (vitamin D3) 25 mcg PO DAILY 10/04/20 10/04/20 History Patient History Medical History (Updated 10/05/20 @ 12:52 by Pauly Buchanan MD) Asthma Using albuterol inhaler TID now since PEs. Previously wasn't using inhaler at all. Cancer LUNG AND PROSTATE CANCER, both treated surgically Degenerative disc disease GERD (gastroesophageal reflux disease) HTN (hypertension) Migraine HX OF On anticoagulant therapy Osteoarthritis Pre-diabetes Pulmonary embolism hospitalized 03/12/2020-03/15/2020 [facility] w/ BL PE; unk etiology; on coumadin Surgical History History of adenoidectomy History of carpal tunnel release RT X 2 LEFT X 3 History of cataract surgery LEFT/RIGHT History of colonoscopy History of esophagogastroduodenoscopy (EGD) History of herniorrhaphy RT INGUINAL History of laminectomy LUMBAR History of lobectomy of lung RT MIDDLE LOBE History of prostatectomy History of tonsillectomy History of tooth extraction Status post reverse arthroplasty of left shoulder (~05/2020) Family History Father FHx: prostate cancer Grandfather (Paternal) FHx: prostate cancer Social History Smoking Status: Former smoker Tobacco Type: Cigars Years Smoked: 50; Second Hand Exposure: No; Hx Alcohol Use: No Hx Substance Use: No Preferred Language: Occitan Communication Ability: Effective 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 Beliefs That Will Affect Care: None marital status: Current Living Situation: Spouse and Family Other Information That Helps Us Care for You: No Feels Safe at Home: Yes Safety Concerns: Feels Safe At This Time Assistive Devices: Glasses Review of Systems Review of Systems: All systems reviewed & are unremarkable except as noted in HPI & below and All systems reviewed & are unremarkable except as noted in Subjective Physical Exam Physical Exam: Physical Exam: Constitutional: appearance nourished, healthy and normal Ears, Nose, Mouth and Throat: mucous membranes moist, no injection and skin normal, eyes normal Cardiovascular: normal S-1 and S-2 and regular rate and rhythm Respiratory: course breath sounds no wheezing Musculoskeletal: no peripheral edema Skin: no stigmata of neurocutaneous disease noted and normal and intact Eyes: extraocular muscles intact (EOMI) and pupils equal, round and reactive to light (PERRL) NEUROLOGIC EXAMINATION: Mental status: Alert and interactive Oriented to full date and location Oriented to person Speech fluent with no evidence of aphasia Cranial Nerves smile eye brow raise symmetric Reflexes: Deep tendon reflexes were symmetrical and graded 2/5. Sensory: to vibration, light, cool touch Coordination: finger to nose no bipass Gait/Stance: Posture normal. Gait normal: with steady with steps, base, turning, tandem gait. Motor: Negative for pronator drift of out stretched arms with eyes closed. 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 bilaterally hip flex bilaterally 5/5 Results & Data ([facility]) Vital Signs (Past 12 Hours) Vital Signs Temp Pulse Pulse Resp BP Pulse Ox 10/05/20 11:42 36.9 C 86 18 152/81 H 93 10/05/20 07:53 36.6 C 85 18 158/88 H 96 10/05/20 07:21 79 10/05/20 04:29 36.7 C 82 18 148/52 H 97 Laboratory Results Abnormal lab results 10/04/20 10/04/20 10/04/20 Range/Units 15:40 15:40 15:40 RBC 4.48 L (4.7-6.1) M/uL Hgb 12.6 L (14.0-18.0) g/dL Hct 38.6 L (42-52) % [place] # (Auto) 0.74 H (0.11-0.59) K/uL PT 18.8 H (9.0-12.0) Seconds INR 1.8 H (0.9-1.1) APTT 36.5 H (21.0-31.0) Seconds BUN 27 H (7-18) mg/dl BUN/Creatinine Ratio 21.9 H (10-20) Glucose 116 H (70-99) mg/dl POC Glucose (70-99) mg/dl Hemoglobin A1c (4.5-5.6) % AST 14 L (15-37) U/L 10/04/20 10/05/20 10/05/20 Range/Units 16:01 05:40 05:40 RBC 4.39 L (4.7-6.1) M/uL Hgb 12.5 L (14.0-18.0) g/dL Hct 37.8 L (42-52) % [place] # (Auto) 0.67 H (0.11-0.59) K/uL PT 17.9 H (9.0-12.0) Seconds INR 1.7 H (0.9-1.1) APTT (21.0-31.0) Seconds BUN (7-18) mg/dl BUN/Creatinine Ratio (10-20) Glucose (70-99) mg/dl POC Glucose 108 H (70-99) mg/dl Hemoglobin A1c (4.5-5.6) % AST (15-37) U/L 10/05/20 10/05/20 Range/Units 05:40 05:40 RBC (4.7-6.1) M/uL Hgb (14.0-18.0) g/dL Hct (42-52) % [place] # (Auto) (0.11-0.59) K/uL PT (9.0-12.0) Seconds INR (0.9-1.1) APTT (21.0-31.0) Seconds BUN 20 H (7-18) mg/dl BUN/Creatinine Ratio (10-20) Glucose (70-99) mg/dl POC Glucose (70-99) mg/dl Hemoglobin A1c 5.8 H (4.5-5.6) % AST (15-37) U/L Diagnostic Findings CTA head and neck- There is no hemorrhage, mass effect, or evidence of acute territorial ischemia by CT criteria. 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 This is unchanged from previous. 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 This is unchanged from previous. There is mild focal stenosis of the supraclinoid left internal carotid artery and the P1 segment of the right posterior cerebral artery. These are unchanged from previous. Atherosclerotic plaque causes less than 50% stenosis at the origin of the right internal carotid artery. Otherwise unremarkable CT angiogram of the neck. MRI brain-There is a 10 mm focus of restricted diffusion identified in the left internal capsule/thalamus consistent with an acute to subacute lacunar infarct. No additional foci of acute ischemia are identified. There is no hemorrhage or mass effect.
--- NOTE | 2020-10-05 15:28 | Electroencephalogram ---
EEG Procedure Note Date of Service October 05, 2020 Start / End Times Start Time: 0800 End Time: 0830 Referring Physician Pauly Buchanan History Confusion question post ictal state versus new stroke Home Medication List Medication Instructions Recorded Confirmed Type citalopram 20 mg PO QAM 08/31/18 10/04/20 History pantoprazole 40 mg PO QAM 08/31/18 10/04/20 History carvedilol 6.25 mg PO QAM 03/09/20 10/04/20 History gabapentin 100 mg PO BID 03/09/20 10/04/20 History multivitamin 1 tab PO HS 03/09/20 10/04/20 History meclizine 12.5 mg PO TID PRN 03/12/20 10/04/20 History amlodipine 2.5 mg PO QAM 05/16/20 10/04/20 History aspirin 81 mg PO QAM 07/04/20 10/04/20 History warfarin 2.5 mg PO MOFR 07/04/20 10/04/20 History warfarin 5 mg PO SUTUWETHSA 07/04/20 10/04/20 History albuterol sulfate 1 - 2 puff INHALATION DIRECTED 07/07/20 10/04/20 History PRN polyethylene glycol 3350 [Miralax] 17 g PO DAILY PRN #30 ea 07/09/20 10/04/20 Rx atorvastatin 40 mg PO HS 10/04/20 10/04/20 History cholecalciferol (vitamin D3) 25 mcg PO DAILY 10/04/20 10/04/20 History Inpatient Medication List Amlodipine Besylate (Amlodipine Besylate 5 Mg Tab) 2.5 mg PO [facility] Stop: 11/04/20 08:59 Last Admin: 10/05/20 09:54 Dose: 2.5 mg Documented by: [id number] Aspirin (Aspirin 81 Mg Ectab) [facility] Stop: 11/04/20 08:59 Last Admin: 10/05/20 09:53 Dose: 81 mg Documented by: [id number] Atorvastatin Calcium (Atorvastatin 40 Mg Tab) 40 mg PO [facility] Stop: 11/03/20 20:59 Last Admin: 10/04/20 21:28 Dose: Not Given Documented by: [id number] Carvedilol (Carvedilol 6.25 Mg Tab) 6.25 mg PO [facility] Stop: 11/04/20 08:59 Last Admin: 10/05/20 09:53 Dose: 6.25 mg Documented by: [id number] Citalopram Hydrobromide (Citalopram 20 Mg Tab) 20 mg PO QAM [facility] Stop: 11/04/20 08:59 Last Admin: 10/05/20 09:53 Dose: 20 mg Documented by: [id number] Gabapentin (Gabapentin 100 Mg Cap) 100 mg PO BID ROSA M Stop: 11/03/20 20:59 Last Admin: 10/05/20 09:54 Dose: 100 mg Documented by: [id number] Admin: 10/04/20 21:28 Dose: Not Given Documented by: [id number] Multivitamins (Multivitamin Tab) 1 tab PO HS [facility] Stop: 11/03/20 20:59 Last Admin: 10/04/20 21:28 Dose: Not Given Documented by: [id number] Pantoprazole Sodium (Pantoprazole 40 Mg Tab) 40 mg PO [facility] Stop: 11/04/20 08:59 Last Admin: 10/05/20 09:55 Dose: 40 mg Documented by: [id number] Vitamin D (Cholecalciferol 1,000 Units 25 Mcg Tab) 1,000 units PO DAILY [facility] Stop: 11/04/20 08:59 Last Admin: 10/05/20 09:55 Dose: 1,000 units Documented by: [id number] Discontinued Medications Aspirin (Aspirin 300 Mg Supp) 300 mg MD ONE ONE Stop: 10/04/20 20:41 Last Admin: 10/04/20 21:36 Dose: 300 mg Documented by: [id number] Gadobutrol (Gadobutrol 65ml Vial) 7 ml IV ONCE ONE Stop: 10/04/20 19:26 Last Admin: 10/04/20 19:25 Dose: 7 ml Documented by: [id number] Sodium Chloride (Nss 1000ml) 500 mls @ 999 mls/hr IV .Q31M ONE Stop: 10/04/20 15:55 Last Infusion: 10/04/20 17:45 Dose: 0 mls/hr Documented by: [id number] Admin: 10/04/20 16:45 Dose: 999 mls/hr Documented by: [id number] Sodium Chloride (1/2 Nss) 1,000 mls @ 80 mls/hr IV .[id number] ROSA M Stop: 10/05/20 07:14 Last Infusion: 10/05/20 09:58 Dose: 0 mls/hr Documented by: [id number] Admin: 10/04/20 21:28 Dose: 80 mls/hr Documented by: [id number] Ioversol (Optiray 320 125ml) 119 ml IV ONCE ONE Stop: 10/04/20 16:38 Last Admin: 10/04/20 16:37 Dose: 119 ml Documented by: [id number] Warfarin Sodium (Warfarin Sod 5 Mg Tab) 5 mg PO NOW ONE Stop: 10/04/20 18:50 Last Admin: 10/04/20 21:28 Dose: Not Given Documented by: [id number] Description This is a 21 electrode EEG with a single channel dedicated to limited EKG. The electrodes were placed in accordance with the International 10-20 system. This EEG done as a bedside recording is of excellent technical quality with fewer no muscle movement artifacts. Photic stimulation is performed. Drowsiness/sleep not recorded. Video analysis patient movement behavior is obtained. During wakefulness is evidence for well-developed background rhythm in the alpha range of up to 9 Hz and maximum frequency and 20 V a maximum amplitude. This maximum posterior head regions and bilaterally symmetrical. Polymorphic mid frequency theta activity seen over all head regions without focal regional predominance. Beta activity seen bifrontally. Photic stimulation evoked a minimal driving response without a photo myogenic and photoparoxysmal component. No time during the waking tracing is evidence for potentially epileptogenic activity Interpretation This is a normal EEG during wakefulness Clinical Correlation This EEG is normal revealing no evidence for focal or generalized encephalopathy no evidence for potentially epileptogenic activity. Db Thomson MD
[2020-10-05] MEDS ORDERED: WARFARIN SOD 2.5 MG TAB PO SCH (16:00)
[2020-10-05] MEDS ORDERED: WARFARIN SOD 5 MG TAB PO SCH (16:00)
[2020-10-05] MEDS: WARFARIN SOD 5 MG TAB PO SCH (16:02)
[2020-10-05] MEDS: traMADol HCL 50 MG TABLET PO PRN (18:54)
[2020-10-05] MEDS: ATORVASTATIN 40 MG TAB PO SCH (19:59)
[2020-10-05] MEDS: MULTIVITAMIN TAB PO SCH (19:59)
[2020-10-06] MEDS: traMADol HCL 50 MG TABLET PO PRN (02:50)
[2020-10-06 07:31] LABS: Basophils # (auto) 0.02 K/uL (0-0.2); Basophils % (auto) 0.3 %; Eosinophils # (auto) 0.15 K/uL (0-0.5); Eosinophils % (auto) 2.5 %; Hematocrit (blood only) 38.5 % (42-52); Hemoglobin 12.7 g/dL (14.0-18.0); Lymphocytes # (auto) 2.43 K/uL (1.2-3.4); Lymphocytes % (auto) 39.9 %; Mean Corpuscular Hemoglobin 28.4 pg (25-34); Mean Corpuscular Volume 86.1 fL (80-100); Mean Platelet Volume 9.4 fL (7.4-10.4); Monocytes % (auto) 9.9 %; Neutrophils # (auto) 2.89 K/uL (1.4-6.5); Neutrophils % (auto) 47.4 %; Platelet Count 232 K/uL (130-400); RDW Coefficient of Variation 14.2 % (11.5-14.5); RDW Standard Deviation 44.7 fL (36.4-46.3); Red Blood Count 4.47 M/uL (4.7-6.1); White Blood Count 6.09 K/uL (4.8-10.8)
[2020-10-06 07:41] LABS: INR 1.7 (0.9-1.1); Prothrombin Time 17.7 Seconds (9.0-12.0)
[2020-10-06] MEDS: CHOLECALCIFEROL 1,000 UNITS 25 MCG TAB PO SCH (08:09)
[2020-10-06] MEDS: ASPIRIN 81 MG ECTAB PO SCH (08:09)
[2020-10-06] MEDS: carvediloL 6.25 MG TAB PO SCH (08:09)
[2020-10-06] MEDS: CITALOPRAM 20 MG TAB PO SCH (08:10)
[2020-10-06] MEDS: amLODIPine BESYLATE 5 MG TAB PO SCH (08:10)
[2020-10-06] MEDS: GABAPENTIN 100 MG CAP PO SCH ×2 (08:10→20:05)
[2020-10-06] MEDS: PANTOprazole 40 MG TAB PO SCH (08:10)
[2020-10-06 08:12] LABS: BUN Creatinine Ratio 14.8 (10-20); Calcium 9.3 mg/dl (8.5-10.1); Creatinine Clr Calc Pharmacy 29.2 ml/min; Est GFR (African American) 46.9; Est GFR (Non-African American) 40.4; Potassium 4.5 mmol/L (3.5-5.1)
[2020-10-06] MEDS: SODIUM CHLORIDE 0.9% 1000ML 1,000 ML IV SCH ×2 (12:46→20:03)
[2020-10-06] MEDS ORDERED: WARFARIN SOD 5 MG TAB PO SCH ×2 (16:00)
[2020-10-06] MEDS ORDERED: WARFARIN SOD 2.5 MG TAB PO SCH (16:00)
[2020-10-06] MEDS: WARFARIN SOD 5 MG TAB PO SCH (16:37)
[2020-10-06] MEDS: ATORVASTATIN 40 MG TAB PO SCH (20:05)
[2020-10-06] MEDS: MULTIVITAMIN TAB PO SCH (20:06)
[2020-10-07 08:05] LABS: Basophils # (auto) 0.01 K/uL (0-0.2); Basophils % (auto) 0.2 %; Eosinophils # (auto) 0.23 K/uL (0-0.5); Eosinophils % (auto) 3.5 %; Hematocrit (blood only) 37.1 % (42-52); Hemoglobin 12.3 g/dL (14.0-18.0); Immature Granulocytes # (auto) 0.01 K/uL (0.00-0.02); Immature Granulocytes % (auto) 0.2 %; Lymphocytes # (auto) 2.16 K/uL (1.2-3.4); Lymphocytes % (auto) 33.2 %; Mean Corpuscular Hemoglobin 28.6 pg (25-34); Mean Corpuscular Hgb Conc 33.2 g/dL (32-36); Mean Corpuscular Volume 86.3 fL (80-100); Mean Platelet Volume 9.5 fL (7.4-10.4); Monocytes # (auto) 0.68 K/uL (0.11-0.59); Monocytes % (auto) 10.4 %; Neutrophils # (auto) 3.42 K/uL (1.4-6.5); Neutrophils % (auto) 52.5 %; Platelet Count 213 K/uL (130-400); RDW Coefficient of Variation 14.3 % (11.5-14.5); White Blood Count 6.51 K/uL (4.8-10.8)
[2020-10-07] MEDS: CITALOPRAM 20 MG TAB PO SCH (08:09)
[2020-10-07] MEDS: PANTOprazole 40 MG TAB PO SCH (08:09)
[2020-10-07] MEDS: carvediloL 6.25 MG TAB PO SCH (08:09)
[2020-10-07] MEDS: CHOLECALCIFEROL 1,000 UNITS 25 MCG TAB PO SCH (08:09)
[2020-10-07] MEDS: amLODIPine BESYLATE 5 MG TAB PO SCH (08:09)
[2020-10-07] MEDS: GABAPENTIN 100 MG CAP PO SCH ×2 (08:09→20:20)
[2020-10-07] MEDS: ASPIRIN 81 MG ECTAB PO SCH (08:09)
[2020-10-07 08:15] LABS: INR 1.7 (0.9-1.1); Prothrombin Time 17.9 Seconds (9.0-12.0)
[2020-10-07 08:29] LABS: BUN Creatinine Ratio 15.9 (10-20); Calcium 9.1 mg/dl (8.5-10.1); Creatinine Clr Calc Pharmacy 39.4 ml/min; Est GFR (African American) 61.2; Est GFR (Non-African American) 52.8; Potassium 4.3 mmol/L (3.5-5.1)
[2020-10-07] MEDS ORDERED: WARFARIN SOD 2.5 MG TAB PO ONE (08:32)
--- NOTE | 2020-10-07 10:48 | Communication Note ---
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 finding deficits right left disorientation neologisms or paraphasias there was certainly no motor deficits on the right side Plan should be for discharge relatively soon once his INR gets in the therapeutic range, to continue his aspirin I have an outpatient Zio patch to see if he is in paroxysmal atrial fibrillation although frankly I continue to think these are small vessel events and have him follow-up with neurology after completion of Zio patch for review He has difficulty keeping his INR in the therapeutic range which is not unusual and frankly I wonder if a novel anticoagulant would be a better choice. He continues to be on a baby aspirin a day and I think this would be excellent for control of small vessel issues although it clearly failed in this regard and the outpatient combination of a novel anticoagulant with aspirin while risky might be more convenient and easier to manage in his current program All of this will be decided on an outpatient basis I am going to sign off the case at this point as he seems to be back to what I consider his baseline and I do not think needs any rehabilitation and could probably simply go home Db Thomson MD
--- NOTE | 2020-10-07 13:26 | Hospitalist Progress Note ---
Date of Service October 07, 2020 Assessment & Plan (1) Acute ischemic stroke: This is an 80-year-old male who has significant past medical history of recent acute right viraj lacunar infarct, history of PE anticoagulated on warfarin, HTN, HLD, CKD stage III, history of lung CA status post resection, history of prostate cancer status post prostatectomy, chronic anemia, pre diabetes and anxiety who presents to ED secondary to confusion and slow to respond starting at 1:30 PM. Patient presents secondary to acute episode of confusion and slow to respond. Patient unable to work remote and having difficulty walking. Currently on my exam he has no neuro focal deficits but will admit for further neurologic work-up. ED provider spoke with neurology. CT of the head and CTA of the head and neck did not show any significant new findings. MRI of the brain did show 10 mm focus of restricted diffusion identified in the left internal capsule/thalamus consistent with an acute to subacute lacunar infarct Discussed with the neurologist no further anticoagulation with heparin at this time as this is very small vessel disease He remains free of any symptoms Appreciate neurology input and recommendation Seems to be back to his baseline INR is still remains subtherapeutic-doses of Coumadin have been increased Likely be discharged tomorrow with a Zio patch as an outpatient (2) Acute confusion: Likely secondary to acute stroke Resolved (3) History of CVA (cerebrovascular accident): Has been on baby aspirin and Coumadin (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: CTA confirmed that stenosis and that was there before (6) History of pulmonary embolism: Continue warfarin, INR 1.8 Home regimen 2 mg Thursday and Thursday, 5 mg all other days His INR is 1.7 as of today and received 5 mg of Coumadin Will get 7.5 mg Coumadin today again (7) HTN (hypertension): BP mildly elevated Continue Coreg and amlodipine Monitor-blood pressure remains controlled (8) CKD (chronic kidney disease) stage 3, GFR 30-59 ml/min: Baseline creatinine 1.3 BUN/creatinine 27 and 1.25 today Avoid nephrotoxic agent Given mild elevation in BUN will give additional 1 L of IVF Creatinine has been normalized (9) Pre-diabetes: a1c 5.7 07/2020 monitor fasting bsg (10) DVT prophylaxis: continue warfarin Disposition: admit to [facility] Follow up: PCP Dr. Schumacher upon discharge Admission and Anticipated Discharge Date Admission Date: October 06, 2020 Subjective 10/05/2020 The patient was seen and examined in medical telemetry unit He was admitted with acute confusion/difficulty in finding words/strokelike symptoms He has been feeling a lot better today and does not complain any significant symptoms Wants to go home this afternoon 10/07/2020 The patient was seen and examined in medical telemetry unit He has been much better today and is back to his baseline His INR remains subtherapeutic Review of Systems Review of Systems: All systems reviewed and are unremarkable except as noted below Physical Exam Physical Exam: Sitting at the edge of the bed without any acute symptoms Constitutional: well developed and well nourished; not ill appearing Eyes: PERRL, conjunctivae normal, anicteric sclerae ENMT: external ear and nose normal, oropharynx normal Neck: trachea midline, no thyromegaly Respiratory: no respiratory distress Auscultation: lungs clear to auscultation bilaterally Cardiovascular: Rate/Rhythm: regular rate and regular rhythm Heart Sounds: no murmur Extremities: no edema Gastrointestinal (Abdomen): Inspection/Auscultation: abdomen normal to inspection and normal bowel sounds; abdomen not distended Percussion/Palpation: abdomen soft; abdomen nontender Neurologic: Alert, awake and oriented x3. No focal sensory and/or motor deficit appreciated. Questionable finding of words remain Psychiatric: A+Ox3, euthymic affect Lymphatic: no cervical or axillary lymphadenopathy Results & Data Results & Data ([facility]) Vital Signs (Past 12 Hours) Vital Signs Temp Pulse Pulse Pulse Resp BP Pulse Ox 10/07/20 11:04 37.0 C 73 16 154/71 H 92 10/07/20 07:38 73 10/07/20 07:15 36.7 C 84 16 154/79 H 98 10/07/20 03:07 36.5 C 79 17 133/81 92 Laboratory Results Short CBC 10/07/20 Range/Units 07:29 WBC 6.51 (4.8-10.8) K/uL Hgb 12.3 L (14.0-18.0) g/dL Hct 37.1 L (42-52) % Plt Count 213 (130-400) K/uL BMP 10/07/20 07:29 Sodium 140 Potassium 4.3 Chloride 109 H Carbon Dioxide 27 BUN 20 H Creatinine 1.26 D Glucose 88 Calcium 9.1 Medications Administered Current Inpatient Medications Acetaminophen (Acetaminophen 325 Mg Tab) 650 mg PO Q4H PRN PRN Reason: Pain or Fever Stop: 11/03/20 20:09 Last Admin: 10/05/20 16:02 Dose: 650 mg Documented by: Al Hydrox/Mg Hydrox/Simethicone (Aluminum/Magnesium Susp 30 Ml Udc) 15 ml PO Q4H PRN PRN Reason: Dyspepsia Stop: 11/03/20 20:09 Albuterol (Albuterol Hfa 8 Gm Inhaler) 1 puffs INH Q4H PRN PRN Reason: Shortness Of Breath Or Wheezin Stop: 11/03/20 20:09 Amlodipine Besylate (Amlodipine Besylate 5 Mg Tab) 2.[address] [facility] Stop: 11/04/20 08:59 Last Admin: 10/07/20 08:09 Dose: 2.5 mg Documented by: Aspirin (Aspirin 81 Mg Ectab) [address] [facility] Stop: 11/04/20 08:59 Last Admin: 10/07/20 08:09 Dose: 81 mg Documented by: Atorvastatin Calcium (Atorvastatin 40 Mg Tab) 40 mg PO [facility] Stop: 11/03/20 20:59 Last Admin: 10/06/20 20:05 Dose: 40 mg Documented by: Carvedilol (Carvedilol 6.25 Mg Tab) 6.[address] [facility] Stop: 11/04/20 08:59 Last Admin: 10/07/20 08:09 Dose: 6.25 mg Documented by: Citalopram Hydrobromide (Citalopram 20 Mg Tab) [address] [facility] Stop: 11/04/20 08:59 Last Admin: 10/07/20 08:09 Dose: 20 mg Documented by: Gabapentin (Gabapentin 100 Mg Cap) 100 mg PO BID [facility] Stop: 11/03/20 20:59 Last Admin: 10/07/20 08:09 Dose: 100 mg Documented by: Magnesium Hydroxide (Magnesium Hydroxide Susp 30 Ml Udc) 30 ml PO Q12H PRN PRN Reason: Constipation Stop: 11/03/20 20:09 Metoprolol Tartrate (Metoprolol Tartrate 1 Mg/Ml Vial) 5 mg IV Q6 PRN PRN Reason: Hypertension Stop: 11/04/20 00:00 Miscellaneous Information (Pharmacist Discharge Med Rec Consult) 1 ea N/A UD PRN PRN Reason: Consult Stop: 11/03/20 20:09 Multivitamins (Multivitamin Tab) 1 tab PO HS [facility] Stop: 11/03/20 20:59 Last Admin: 10/06/20 20:06 Dose: 1 tab Documented by: Ondansetron HCl (Ondansetron Inj 2 Mg/Ml 2 Ml Vial) 4 mg IV Q6H PRN PRN Reason: Nausea Stop: 11/03/20 20:09 Pantoprazole Sodium (Pantoprazole 40 Mg Tab) 40 mg PO QAM [facility] Stop: 11/04/20 08:59 Last Admin: 10/07/20 08:09 Dose: 40 mg Documented by: Polyethylene Glycol (Polyethylene (Miralax) 17 Gm Pack) 17 gm PO DAILY PRN PRN Reason: Constipation Stop: 11/03/20 20:09 Tramadol HCl (Tramadol Hcl 50 Mg Tablet) 50 mg PO Q6H PRN PRN Reason: Pain Stop: 11/04/20 17:31 Last Admin: 10/06/20 02:50 Dose: 50 mg Documented by: Vitamin D (Cholecalciferol 1,000 Units 25 Mcg Tab) 1,000 units PO DAILY [facility] Stop: 11/04/20 08:59 Last Admin: 10/07/20 08:09 Dose: 1,000 units Documented by: Warfarin Sodium (Warfarin Sod 5 Mg Tab) 5 mg PO [id number] [facility] Stop: 11/05/20 15:59 Last Admin: 10/06/20 16:37 Dose: 5 mg Documented by: Warfarin Sodium (Warfarin Sod 5 Mg Tab) 5 mg PO [id number] [facility] Stop: 11/04/20 15:59 Last Admin: 10/05/20 16:04 Dose: 5 mg Documented by: (1) Middle cerebral artery stenosis Laterality: right Qualified Code(s): I66.01 - Occlusion and stenosis of right middle cerebral artery (2) CKD (chronic kidney disease) stage 3, GFR 30-59 ml/min Chronic kidney disease stage 3 subtype: unspecified whether 3a or 3b Qu alified Code(s): N18.30 - Chronic kidney disease, stage 3 unspecified
[2020-10-07] MEDS: WARFARIN SOD 5 MG TAB PO SCH (16:53)
[2020-10-07] MEDS: ATORVASTATIN 40 MG TAB PO SCH (20:21)
[2020-10-07] MEDS: MULTIVITAMIN TAB PO SCH (20:22)
[2020-10-07] MEDS: traMADol HCL 50 MG TABLET PO PRN (20:58)
[2020-10-08 06:34] LABS: INR 2.3 (0.9-1.1); Prothrombin Time 23.4 Seconds (9.0-12.0)
[2020-10-08] MEDS: GABAPENTIN 100 MG CAP PO SCH (07:57)
[2020-10-08] MEDS: CITALOPRAM 20 MG TAB PO SCH (07:57)
[2020-10-08] MEDS: ASPIRIN 81 MG ECTAB PO SCH (07:57)
[2020-10-08] MEDS: amLODIPine BESYLATE 5 MG TAB PO SCH (07:57)
[2020-10-08] MEDS: carvediloL 6.25 MG TAB PO SCH (07:57)
[2020-10-08] MEDS: CHOLECALCIFEROL 1,000 UNITS 25 MCG TAB PO SCH (07:58)
[2020-10-08] MEDS: PANTOprazole 40 MG TAB PO SCH (08:44)
--- NOTE | 2020-10-08 10:55 | Hospitalist Progress Note ---
Date of Service October 08, 2020 This is a delayed progress note for 10/06/2020 Assessment & Plan Admission and Anticipated Discharge Date Admission Date: October 06, 2020 Assessment & Plan (1) Acute ischemic stroke: This is an 80-year-old male who has significant past medical history of recent acute right viraj lacunar infarct, history of PE anticoagulated on warfarin, HTN, HLD, CKD stage III, history of lung CA status post resection, history of prostate cancer status post prostatectomy, chronic anemia, pre diabetes and anxiety who presents to ED secondary to confusion and slow to respond starting at 1:30 PM. Patient presents secondary to acute episode of confusion and slow to respond. Patient unable to work remote and having difficulty walking. Currently on my exam he has no neuro focal deficits but will admit for further neurologic work-up. ED provider spoke with neurology. CT of the head and CTA of the head and neck did not show any significant new findings. 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: CTA confirmed that stenosis and that was there before (6) History of pulmonary embolism: Continue warfarin, INR 1.8 Home regimen 2 mg Thursday and Thursday, 5 mg all other days His INR is 1.7 as of today and received 5 mg of Coumadin We will continue with his current dose of Coumadin but will give 5 mg today INR remains low at 1.7 Will give additional dose of Coumadin (7) HTN (hypertension): BP mildly elevated Continue Coreg and amlodipine Monitor-blood pressure remains controlled (8) CKD (chronic kidney disease) stage 3, GFR 30-59 ml/min: Baseline creatinine 1.3 BUN/creatinine 27 and 1.25 today Avoid nephrotoxic agent Given mild elevation in BUN will give additional 1 L of IVF 10/05/20 Creatinine shows improvement (9) Pre-diabetes: a1c 5.7 07/2020 monitor fasting bsg (10) DVT prophylaxis: continue warfarin Disposition: admit to med tele Follow up: PCP Dr. Schumacher upon discharge Subjective 10/05/2020 The patient was seen and examined in medical telemetry unit He was admitted with acute confusion/difficulty in finding words/strokelike symptoms He has been feeling a lot better today and does not complain any significant symptoms Wants to go home this afternoon 10/06/2020 The patient was seen and examined in medical telemetry unit He has been complaining of difficulty in finding words but clinically improving Review of Systems Review of Systems: All systems reviewed and are unremarkable except as noted below Physical Exam Physical Exam: Sitting at the edge of the bed without any acute symptoms Constitutional: well developed and well nourished; not ill appearing Eyes: PERRL, conjunctivae normal, anicteric sclerae ENMT: external ear and nose normal, oropharynx normal Neck: trachea midline, no thyromegaly Respiratory: no respiratory distress Auscultation: lungs clear to auscultation bilaterally Cardiovascular: Rate/Rhythm: regular rate and regular rhythm Heart Sounds: no murmur Extremities: no edema Gastrointestinal (Abdomen): Inspection/Auscultation: abdomen normal to inspection and normal bowel sounds; abdomen not distended Percussion/Palpation: abdomen soft; abdomen nontender Neurologic: Alert, awake and oriented x3. No focal sensory and motor deficit appreciated Psychiatric: A+Ox3, euthymic affect Lymphatic: no cervical or axillary lymphadenopathy Results & Data Results & Data ([facility]) Vital Signs (Past 12 Hours) Vital Signs Temp Pulse Pulse Resp BP Pulse Ox 10/08/20 07:06 77 10/08/20 07:00 36.8 C 85 18 152/96 H 96 10/08/20 02:49 36.6 C 83 18 154/87 H 94 10/07/20 23:21 36.6 C 85 18 168/88 H 97
--- NOTE | 2020-10-08 11:01 | Hospitalist Progress Note ---
Date of Service October 08, 2020 Assessment & Plan (1) Acute ischemic stroke: This is an 80-year-old male who has significant past medical history of recent acute right viraj lacunar infarct, history of PE anticoagulated on warfarin, HTN, HLD, CKD stage III, history of lung CA status post resection, history of prostate cancer status post prostatectomy, chronic anemia, pre diabetes and anxiety who presents to ED secondary to confusion and slow to respond starting at 1:30 PM. Patient presents secondary to acute episode of confusion and slow to respond. Patient unable to work remote and having difficulty walking. Currently on my exam he has no neuro focal deficits but will admit for further neurologic work-up. ED provider spoke with neurology. CT of the head and CTA of the head and neck did not show any significant new findings. MRI of the brain did show 10 mm focus of restricted diffusion identified in the left internal capsule/thalamus consistent with an acute to subacute lacunar infarct Discussed with the neurologist no further anticoagulation with heparin at this time as this is very small vessel disease He remains free of any symptoms Appreciate neurology input and recommendation Seems to be back to his baseline Likely be discharged with a Zio patch as an outpatient Remains stable without any further neurological symptoms INR becomes therapeutic at 2.3 and the patient will be discharged this afternoon (2) Acute confusion: Likely secondary to acute stroke Resolved (3) History of CVA (cerebrovascular accident): Has been on baby aspirin and Coumadin We will continue aspirin and Coumadin for now Complains to have minimal to no problem with finding words as of today No other neurological symptoms (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: CTA confirmed that stenosis and that was there before (6) History of pulmonary embolism: Continue warfarin, INR 1.8 Home regimen 2 mg Thursday and Thursday, 5 mg all other days His INR is 1.7 as of today and received 5 mg of Coumadin Will get 7.5 mg Coumadin today again INR is 2.3 on 10/08/2020 (7) HTN (hypertension): BP mildly elevated Continue Coreg and amlodipine Monitor-blood pressure remains controlled (8) CKD (chronic kidney disease) stage 3, GFR 30-59 ml/min: Baseline creatinine 1.3 BUN/creatinine 27 and 1.25 today Avoid nephrotoxic agent Given mild elevation in BUN will give additional 1 L of IVF Creatinine has been normalized (9) Pre-diabetes: a1c 5.7 07/2020 monitor fasting bsg (10) DVT prophylaxis: continue warfarin Disposition: admit to [facility] tele Follow up: PCP Dr. Schumacher upon discharge Will be discharged today Will have outpatient Zio patch placed in your appointment following that Strongly advised to follow-up with coagulation clinic to maintain INR between 2- 3 Admission and Anticipated Discharge Date Admission Date: October 06, 2020 Subjective 10/05/2020 The patient was seen and examined in medical telemetry unit He was admitted with acute confusion/difficulty in finding words/strokelike symptoms He has been feeling a lot better today and does not complain any significant symptoms Wants to go home this afternoon 10/06/2020 The patient was seen and examined in medical telemetry unit He has been complaining of difficulty in finding words but clinically improving 10/07/2020 The patient was seen and examined in medical telemetry unit He has been much better today and is back to his baseline His INR remains subtherapeutic 10/08/2020 The patient was seen and examined in medical telemetry unit He has been doing much better Still complains to have minimal or none problem with finding words No other significant neurological symptoms Review of Systems Review of Systems: All systems reviewed and are unremarkable except as noted below Physical Exam Physical Exam: Sitting at the edge of the bed without any acute symptoms Constitutional: well developed and well nourished; not ill appearing Eyes: PERRL, conjunctivae normal, anicteric sclerae ENMT: external ear and nose normal, oropharynx normal Neck: trachea midline, no thyromegaly Respiratory: no respiratory distress Auscultation: lungs clear to auscultation bilaterally Cardiovascular: Rate/Rhythm: regular rate and regular rhythm Heart Sounds: no murmur Extremities: no edema Gastrointestinal (Abdomen): Inspection/Auscultation: abdomen normal to inspection and normal bowel sounds; abdomen not distended Percussion/Palpation: abdomen soft; abdomen nontender Musculoskeletal: No acute arthritis in any joint Neurologic: Alert, awake and oriented x3. No focal sensory and motor deficit appreciated Psychiatric: A+Ox3, euthymic affect Lymphatic: no cervical or axillary lymphadenopathy Results & Data Results & Data ([facility]) Vital Signs (Past 12 Hours) Vital Signs Temp Pulse Pulse Resp BP Pulse Ox 10/08/20 07:06 77 10/08/20 07:00 36.8 C 85 18 152/96 H 96 10/08/20 02:49 36.6 C 83 18 154/87 H 94 10/07/20 23:21 36.6 C 85 18 168/88 H 97 Medications Administered Current Inpatient Medications Acetaminophen (Acetaminophen 325 Mg Tab) 650 mg PO Q4H PRN PRN Reason: Pain or Fever Stop: 11/03/20 20:09 Last Admin: 10/05/20 16:02 Dose: 650 mg Documented by: Al Hydrox/Mg Hydrox/Simethicone (Aluminum/Magnesium Susp 30 Ml Udc) 15 ml PO Q4H PRN PRN Reason: Dyspepsia Stop: 11/03/20 20:09 Albuterol (Albuterol Hfa 8 Gm Inhaler) 1 puffs INH Q4H PRN PRN Reason: Shortness Of Breath Or Wheezin Stop: 11/03/20 20:09 Amlodipine Besylate (Amlodipine Besylate 5 Mg Tab) 2.5 mg PO [facility] Stop: 11/04/20 08:59 Last Admin: 10/08/20 07:57 Dose: 2.5 mg Documented by: Aspirin (Aspirin 81 Mg Ectab) [facility] Stop: 11/04/20 08:59 Last Admin: 10/08/20 07:57 Dose: 81 mg Documented by: Atorvastatin Calcium (Atorvastatin 40 Mg Tab) 40 mg PO [facility] Stop: 11/03/20 20:59 Last Admin: 10/07/20 20:21 Dose: 40 mg Documented by: Carvedilol (Carvedilol 6.25 Mg Tab) 6.25 mg PO [facility] Stop: 11/04/20 08:59 Last Admin: 10/08/20 07:57 Dose: 6.25 mg Documented by: Citalopram Hydrobromide (Citalopram 20 Mg Tab) 20 [facility] Stop: 11/04/20 08:59 Last Admin: 10/08/20 07:57 Dose: 20 mg Documented by: Gabapentin (Gabapentin 100 Mg Cap) 100 mg PO BID [facility] Stop: 11/03/20 20:59 Last Admin: 10/08/20 07:57 Dose: 100 mg Documented by: Magnesium Hydroxide (Magnesium Hydroxide Susp 30 Ml Udc) 30 ml PO Q12H PRN PRN Reason: Constipation Stop: 11/03/20 20:09 Metoprolol Tartrate (Metoprolol Tartrate 1 Mg/Ml Vial) 5 mg IV Q6 PRN PRN Reason: Hypertension Stop: 11/04/20 00:00 Miscellaneous Information (Pharmacist Discharge Med Rec Consult) 1 ea N/A UD PRN PRN Reason: Consult Stop: 11/03/20 20:09 Multivitamins (Multivitamin Tab) 1 tab PO HS [facility] Stop: 11/03/20 20:59 Last Admin: 10/07/20 20:22 Dose: 1 tab Documented by: Ondansetron HCl (Ondansetron Inj 2 Mg/Ml 2 Ml Vial) 4 mg IV Q6H PRN PRN Reason: Nausea Stop: 11/03/20 20:09 Pantoprazole Sodium (Pantoprazole 40 Mg Tab) 40 mg PO QAM [facility] Stop: 11/04/20 08:59 Last Admin: 10/08/20 08:44 Dose: 40 mg Documented by: Polyethylene Glycol (Polyethylene (Miralax) 17 Gm Pack) 17 gm PO DAILY PRN PRN Reason: Constipation Stop: 11/03/20 20:09 Tramadol HCl (Tramadol Hcl 50 Mg Tablet) 50 mg PO Q6H PRN PRN Reason: Pain Stop: 11/04/20 17:31 Last Admin: 10/07/20 20:58 Dose: 50 mg Documented by: Vitamin D (Cholecalciferol 1,000 Units 25 Mcg Tab) 1,000 units PO DAILY [facility] Stop: 11/04/20 08:59 Last Admin: 10/08/20 07:58 Dose: 1,000 units Documented by: Warfarin Sodium (Warfarin Sod 5 Mg Tab) 5 mg PO [id number]@1600 [facility] Stop: 11/05/20 15:59 Last Admin: 10/07/20 16:53 Dose: 5 mg Documented by: Warfarin Sodium (Warfarin Sod 5 Mg Tab) 5 mg PO [id number]@1600 [facility] Stop: 11/04/20 15:59 Last Admin: 10/05/20 16:04 Dose: 5 mg Documented by: (1) Middle cerebral artery stenosis Laterality: right Qualified Code(s): I66.01 - Occlusion and stenosis of right middle cerebral artery (2) CKD (chronic kidney disease) stage 3, GFR 30-59 ml/min Chronic kidney disease stage 3 subtype: unspecified whether 3a or 3b Qualified Code(s): N18.30 - Chronic kidney disease, stage 3 unspecified
[2020-10-08] MEDS ORDERED: STROKE PATIENT DISCHARGE STA (14:16)
--- NOTE | 2020-10-09 07:43 | Discharge Summary ---
Date of Service October 09, 2020 Admission HPI Per Admitting Provider This is an 80-year-old male who has significant past medical history of recent acute right viraj lacunar infarct, history of PE anticoagulated on warfarin, HTN, HLD, CKD stage III, history of lung CA status post resection, history of prostate cancer status post prostatectomy, chronic anemia and anxiety who presents to ED secondary to confusion and slow to respond starting at 1:30 PM. Of significance patient hospitalized 08/21-08/23 secondary to garbled speech and confusion. He was diagnosed with an acute right viraj lacunar CVA. He was started on 40 mg of Lipitor, ASA and his warfarin was continued.Head CTA at that time revealed mild aneurysmal dilatation of right vertebral artery measuring up to 6 mm, focal high-grade stenosis of M1 segment of middle cerebral artery right, mild focal stenosis of supraclinoid left ICA and P1 segment of right posterior cerebral artery. It was felt acute neurosurgical intervention was not required but possibly recommended outpatient neurovascular consultation. Daughter is at bedside and states that since discharge he has good days and bad days, but today was particularly a bad day. At 11 AM he went to get a laser treatment to his eye and approximately around 1:30 PM he was noted to be more confused, did not understand how to operate remote control, had garbled speech and difficulty walking. Patient does not recall those events but he states waking up this morning around 8 am, which is later than usual, and feeling very tired. He remains very fatigued but otherwise denies ROS. He denies recent fever, chills, sweats, lightheadedness, dizziness, syncope, fall, chest pain, shortness of breath, hemoptysis, nausea, vomiting, abdominal pain. He does have a chronic cough due to history of lung cancer and this is unchanged. He denies any diarrhea, melena or hematochezia. His appetite has been good and typically he has been drinking 4 propels a day, but today he only had coffee. In ED patient remained hemodynamically stable, mildly hypertensive. He underwent head CT and head and neck CTAs. These were unchanged from previous examination in July. He received 500 mL of IVF in ED. Daughter at bedside states he is, "off." Admission Exam Per Admitting Provider Physical Exam: Constitutional: WD/WN, male, vitals as above, NAD, sitting up in bed, pleasant, conversing easily Head: Normocephalic, Atraumatic Eyes: PERRL, conjunctivae normal, anicteric sclerae ENMT: external ear and nose normal, oropharynx normal Neck: trachea midline, no thyromegaly normal visual inspection Respiratory: normal respiratory effort, lungs clear to auscultation, no wheeze, rales, rhonchi. Normal insp/exp effort, no accessory muscle use Cardiovascular: RRR, no murmur, no edema Vessels: no JVD or carotid bruit Chest: normal inspection of chest Abdomen: normal bowel sounds, soft, nontender, no hepatosplenomegaly Musculoskeletal: no cyanosis or clubbing, extremities motor strength 5/5 Skin: no rashes, warm and dry normal turgor Neurologic: PERRL, EOMI, accommodation nl, no face palsy, no dysarthria CN's II-XI intact bilaterally and moves all extremities, negative pronator drift, [id number] intact, [id number] intact, fine motor movements intact Psychiatric: A+Ox3, euthymic affect Lymphatic: no cervical or axillary lymphadenopathy : deferred Principal Diagnosis Acute ischemic stroke in left internal capsule/thalamus, acute confusion- resolved, history of CVA, history of pulmonary embolism on Coumadin Discharge Exam Constitutional well developed and well nourished; not ill appearing Eyes PERRL, conjunctivae normal, anicteric sclerae ENMT external ear and nose normal, oropharynx normal Neck trachea midline, no thyromegaly Respiratory no respiratory distress Auscultation: lungs clear to auscultation bilaterally Cardiovascular Rate/Rhythm: regular rate and regular rhythm Heart Sounds: no murmur Extremities: no edema Gastrointestinal (Abdomen) Inspection/Auscultation: abdomen normal to inspection and normal bowel sounds; abdomen not distended Percussion/Palpation: abdomen soft; abdomen nontender Psychiatric A+Ox3, euthymic affect Lymphatic no cervical or axillary lymphadenopathy Discharge Data Allergies Allergy/AdvReac Type Severity Reaction Status Date / Time oxycodone AdvReac Severe became Verified 08/21/20 12:51 apneic and bradycardic Consultations 10/04/20 17:34 ED Decision to Admit Stat 10/04/20 20:10 Consult Case Management - Discharge Planning Routine Consult Neurology Routine 10/08/20 13:26 Consult Case Management - Discharge Planning Routine Ordered Studies 10/04/20 15:26 CT angio head w con Stat CT angio neck with con Stat CT head/brain wo con Stat 10/04/20 17:49 MR brain wo/w con Routine Hospital Course (1) Acute ischemic stroke: This is an 80-year-old male who has significant past medical history of recent acute right viraj lacunar infarct, history of PE anticoagulated on warfarin, HTN, HLD, CKD stage III, history of lung CA status post resection, history of prostate cancer status post prostatectomy, chronic anemia, pre diabetes and anxiety who presents to ED secondary to confusion and slow to respond starting at 1:30 PM. Patient presents secondary to acute episode of confusion and slow to respond. Patient unable to work remote and having difficulty walking. Currently on my exam he has no neuro focal deficits but will admit for further neurologic work-up. ED provider spoke with neurology. CT of the head and CTA of the head and neck did not show any significant new findings. MRI of the brain did show 10 mm focus of restricted diffusion identified in the left internal capsule/thalamus consistent with an acute to subacute lacunar infarct Discussed with the neurologist no further anticoagulation with heparin at this time as this is very small vessel disease He remains free of any symptoms Appreciate neurology input and recommendation Seems to be back to his baseline Likely be discharged with a Zio patch as an outpatient Remains stable without any further neurological symptoms INR becomes therapeutic at 2.3 and the patient will be discharged this afternoon (2) Acute confusion: Likely secondary to acute stroke Resolved (3) History of CVA (cerebrovascular accident): Has been on baby aspirin and Coumadin We will continue aspirin and Coumadin for now Complains to have minimal to no problem with finding words as of today No other neurological symptoms (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: CTA confirmed that stenosis and that was there before (6) History of pulmonary embolism: Continue warfarin, INR 1.8 Home regimen 2 mg Thursday and Thursday, 5 mg all other days His INR is 1.7 as of today and received 5 mg of Coumadin Will get 7.5 mg Coumadin today again INR is 2.3 on 10/08/2020 (7) HTN (hypertension): BP mildly elevated Continue Coreg and amlodipine Monitor-blood pressure remains controlled (8) CKD (chronic kidney disease) stage 3, GFR 30-59 ml/min: Baseline creatinine 1.3 BUN/creatinine 27 and 1.25 today Avoid nephrotoxic agent Given mild elevation in BUN will give additional 1 L of IVF Creatinine has been normalized (9) Pre-diabetes: a1c 5.7 07/2020 monitor fasting bsg (10) DVT prophylaxis: continue warfarin Disposition: admit to [facility] tele Follow up: PCP Dr. Schumacher upon discharge Will be discharged today Will have outpatient Zio patch placed in your appointment following that Strongly advised to follow-up with coagulation clinic to maintain INR between 2- 3 Total Time Total Time Spent Total Time Spent (In Minutes): 35 minutes Total Time Includes: Examination of the Patient, Discharge Planning, Medication Reconciliation and Communication With Other Providers Discharge Plan Discharge Items Patient Disposition: Home - Self-Care Reason For Visit: STROKE LIKE SYMPTOMS Discharge Diagnosis: Acute ischemic stroke in left internal capsule/thalamus, acute confusion- resolved, history of CVA, history of pulmonary embolism on Coumadin Condition on Discharge: Good Activity: Resume your previous activity Non-emergency contact: Primary Care Provider Call non-emergency contact if: you have any medication questions and your symptoms worsen Follow-up/Referrals: Ranulfo Schumacher DO [Primary Care Provider] - (Date & Time 10/12/2020 11:20 AM Provider Ranulfo Schumacher DO Department General Internal Medicine [facility] ) Diet: Heart Healthy Addtl Attending Provider Instructions: Please take precaution to avoid falls You will have a Zio patch placement from your doctor's office Please keep regular follow-up with coagulation clinic and take Coumadin to keep INR between 2-3 Pending Studies at Discharge: No Stand-Alone Forms: My [facility] [place], Smoking Cessation Medications and DC Order Prescriptions: Continued carvedilol 6.25 mg Tablet 6.25 mg PO QAM RF: 0 gabapentin 100 mg Capsule 100 mg PO BID RF: 0 multivitamin Tablet 1 tab PO HS RF: 0 amlodipine 2.5 mg tablet 2.5 mg PO QAM RF: 0 meclizine 12.5 mg tablet 12.5 mg PO TID PRN (Reason: DIZZY) RF: 0 albuterol sulfate 90 mcg/actuation HFA aerosol inhaler 1 - 2 puff INHALATION DIRECTED PRN (Reason: Shortness Of Breath Or Wheezing) RF: 0 polyethylene glycol 3350 [Miralax] 17 gram Powder In Packet 17 g PO DAILY PRN (Reason: constipation) Qty: 30 RF: 0 atorvastatin 40 mg Tablet 40 mg PO HS RF: 0 cholecalciferol (vitamin D3) 25 mcg (1,000 unit) Tablet 25 mcg PO DAILY RF: 0 citalopram 20 mg tablet 20 mg PO QAM RF: 0 pantoprazole 40 mg tablet,delayed release (DR/EC) 40 mg PO QAM RF: 0 aspirin 81 mg Tablet,Delayed Release (Dr/Ec) 81 mg PO QAM RF: 0 warfarin 5 mg Tablet 2.5 mg PO MOFR RF: 0 warfarin 5 mg tablet 5 mg PO SUTUWETHSA RF: 0 Discharge Orders: Discharge Order (Routine); Ordered 10/08/20 Ordered By: Pauly Buchanan Admission Data Admit Date/Time: 10/06/20 15:03 Attending Provider: Pauly Buchanan Admit Provider: Pauly Buchanan Primary Care Provider: Ranulfo Schumacher Other Providers: Pauly Buchanan ; Florencia Ramsey Other Interventions: Discharge Summary Assessment (RN) Last Done: 10/08/20 14:18
== END 2020-10-08 15:50 | disposition home or self-care (01) | DRG 66 ==
LOC: ED 15:09 → 2N 15:09

== ENCOUNTER 2020-10-12 12:03 | Inpatient (IN) ==
[2020-10-12] MEDS ORDERED: SODIUM CHLORIDE 0.9% 500 ML IV SCH (12:30)
[2020-10-12] MEDS ORDERED: SODIUM CHLORIDE 0.9% 1000ML 1,000 ML IV SCH ×2 (12:30→20:00)
[2020-10-12] MEDS ORDERED: ACETAMINOPHEN 500 MG TAB PO STA (12:47)
[2020-10-12] MEDS ORDERED: ONDANSETRON INJ 2 MG/ML 2 ML VIAL IV STA (12:47)
[2020-10-12 12:49] LABS: Eosinophils # (auto) 0.01 K/uL (0-0.5); Eosinophils % (auto) 0.1 %; Hematocrit (blood only) 39.9 % (42-52); Hemoglobin 13.4 g/dL (14.0-18.0); Immature Granulocytes # (auto) 0.04 K/uL (0.00-0.02); Immature Granulocytes % (auto) 0.3 %; Lymphocytes # (auto) 0.88 K/uL (1.2-3.4); Lymphocytes % (auto) 6.6 %; Mean Corpuscular Hemoglobin 28.6 pg (25-34); Mean Corpuscular Hgb Conc 33.6 g/dL (32-36); Mean Corpuscular Volume 85.3 fL (80-100); Mean Platelet Volume 10.2 fL (7.4-10.4); Monocytes # (auto) 1.18 K/uL (0.11-0.59); Monocytes % (auto) 8.8 %; Neutrophils # (auto) 11.31 K/uL (1.4-6.5); Neutrophils % (auto) 84.2 %; Platelet Count 218 K/uL (130-400); RDW Coefficient of Variation 14.4 % (11.5-14.5); RDW Standard Deviation 44.3 fL (36.4-46.3); Red Blood Count 4.68 M/uL (4.7-6.1); White Blood Count 13.42 K/uL (4.8-10.8)
--- NOTE | 2020-10-12 13:02 | Emergency Department Note ---
Impression & Plan Pneumonia involving right lung, Vomiting, Headache, Chest pain ED Provider Note INFORMANT: Patient ED PROVIDER(S): Db Clemente MD CHIEF COMPLAINT: Vomiting PLAN: Disposition: Admitted Condition: Good Outpatient prescription management: none Referral: None MEDICAL DECISION MAKING: Patient presented because of vomiting and illness. He was hydrated. Blood work was obtained. The patient was given Zofran. Blood work revealed a leukocytosis. Chemistry panel revealed some mild dehydration. Troponin and TSH were negative. INR was therapeutic at 2.9. Chest x-ray was concerning as the patient has a right-sided infiltrate concerning for pneumonia. CT of his head did not reveal any acute disease. The patient had cultures obtained. IV Zosyn was given the concerns about possible aspiration. I discussed the case with his son at his request. The patient will need further management in the hospital and family was in agreement. Patient was in agreement as well. He was given tramadol orally at his request because he does take this at home. He has a long history of migraine headaches. The patient initially was given 25 mg however he states he takes 50 and the second 25 was given. Vomiting had resolved. The patient was doing well. [facility] Patient will be admitted by Dr. Arriaga. Triage Nursing notes reviewed and agree them. Additional history obtained from patient's son. Prior medical records reviewed regarding recent hospitalization. Vital Signs: reviewed and remarkable for no significant abnormalities Differential diagnosis: Infection, dehydration, metabolic abnormality, hypo/hyperglycemia, electrolyte disturbance, anemia, hypoxia, cardiac sources, intracerebral event, toxicologic, neurologic, as well as other pathologies. Diagnostics interpreted by me: ECG: Twelve-lead ECG reveals a sinus tachycardia at [address] elevation or depression. No PVCs or PACs. Normal axis and QRS. Cardiac Monitoring: Cardiac monitoring ordered by me: The patient was placed on continuous cardiac monitoring and observed. It revealed a normal sinus rhythm at 95 beats per minute without ectopy or evidence of dysrhythmia. Imaging studies: Head CT: A noncontrast CT scan of the head was performed and was negative for tumor, fracture, intracranial hemorrhage, or other acute pathology. Chest x-ray concerning for right sided pneumonia. Consultation(s): none HPI: The patient is a 80 year old male who presents to the Emergency Room with complaints of vomiting. This started this morning and is currently resolved. The patient also notes the following associated symptoms, nausea, headache, chest pain, shortness of breath. The patient has taken no medication for rel ieving factors. Current pain is rated as 4/10. Patient recently was discharged after being diagnosed with an acute ischemic stroke. He is anticoagulated secondary to PE. Family notes no other sick contacts since his discharge. Due to the symptoms he was brought back to the emergency department for evaluation. Pt denies LOC, fevers, chills, diaphoresis, visual changes, neck pain, abdominal pain, back pain, melena, hematochezia, urinary symptoms, numbness, new weakness, lymphadenopathy, rash, or other complaints. ROS: See above HPI for pertinent positives & negatives. A total of 10 systems reviewed and were otherwise negative. PAST MEDICAL HISTORY:See Below , PE, CVA PAST SURGICAL HISTORY:See Below, FAMILY HISTORY:See Below SOCIAL HISTORY:See Below, HOME MEDICATIONS:See Below ALLERGIES:See Below VITALS:See Below PHYSICAL EXAMINATION: GENERAL: Awake, tired-appearing, in no distress HENT: Normocephalic, atraumatic. Oropharynx unremarkable. EYES: Normal conjunctiva. Sclera non-icteric. NECK: Inspection normal. Non-tender. Supple. No nuchal rigidity. FROM. No masses. RESPIRATORY: Clear to auscultation. No wheezes. No rales. Normal respiratory effort. CARDIAC: Borderline tachycardic rate. Normal rhythm. No murmurs. No rubs. Extremities warm and well perfused. Pulses equal. No JVD. GI: Soft, non-distended. No tenderness to palpation. No rebound or guarding. No masses. RECTAL: Deferred. MUSCULOSKELETAL: Atraumatic. Chest examination reveals no tenderness. The back is symmetrical on inspection without obvious abnormality. There is no CVA tenderness to palpation. No joint edema. LOWER EXTREMITIES: Calves are equal size bilaterally and non-tender. No edema. No discoloration. NEURO: Normal sensorium. No sensory or motor deficits noted. No drift. The patient has some difficulty with word finding but in general is doing well. He accurately describes the symptoms and events from today when verified with his son's report. SKIN: No rash or jaundice noted. Db Clemente MD Past Med/Surg History Medical History Asthma Using albuterol inhaler TID now since PEs. Previously wasn't using inhaler at all. Cancer LUNG AND PROSTATE CANCER, both treated surgically Degenerative disc disease GERD (gastroesophageal reflux disease) HTN (hypertension) Migraine HX OF On anticoagulant therapy Osteoarthritis Pre-diabetes Pulmonary embolism hospitalized 03/12/2020-03/15/2020 [facility] w/ BL PE; unk etiology; on coumadin Surgical History History of adenoidectomy History of carpal tunnel release RT X 2 LEFT X 3 History of cataract surgery LEFT/RIGHT History of colonoscopy History of esophagogastroduodenoscopy (EGD) History of herniorrhaphy RT INGUINAL History of laminectomy LUMBAR History of lobectomy of lung RT MIDDLE LOBE History of prostatectomy History of tonsillectomy History of tooth extraction Status post reverse arthroplasty of left shoulder (~05/2020) Family History Father FHx: prostate cancer Grandfather (Paternal) FHx: prostate cancer Social History Smoking Status: Former smoker Tobacco Type: Cigarettes Years Smoked: 50; Second Hand Exposure: No; Hx Alcohol Use: No Hx Substance Use: No Preferred Language: Montserratian Communication Ability: Effective Clinic Assistant Required: No Beliefs That Will Affect Care: None marital status: Current Living Situation: Spouse and Family Feels Safe at Home: Yes Assistive Devices: Glasses, Hearing Aid - Left and Hearing Aid - Right Allergies Allergies Allergy/AdvReac Type Severity Reaction Status Date / Time oxycodone AdvReac Severe became Verified 10/12/20 12:57 apneic and bradycardic Home Meds Home Medications Medication Instructions Recorded Confirmed citalopram 20 mg PO QAM 08/31/18 10/12/20 pantoprazole 40 mg PO QAM 08/31/18 10/12/20 carvedilol 6.25 mg PO QAM 03/09/20 10/12/20 gabapentin 100 mg PO BID 03/09/20 10/12/20 multivitamin 1 tab PO HS 03/09/20 10/12/20 meclizine 12.5 mg PO TID PRN 03/12/20 10/12/20 amlodipine 2.5 mg PO QAM 05/16/20 10/12/20 aspirin 81 mg PO QAM 07/04/20 10/12/20 warfarin 5 mg PO DIRECTED 07/04/20 10/12/20 albuterol sulfate 1 - 2 puff INHALATION DIRECTED 07/07/20 10/12/20 PRN atorvastatin 40 mg PO HS 10/04/20 10/12/20 cholecalciferol (vitamin D3) 25 mcg PO QAM 10/04/20 10/12/20 tramadol 25 mg PO Q8H PRN 10/12/20 10/12/20 Results & Data (ED) Vital Signs Vital Signs - 24 hr 10/12/20 12:06 10/12/20 13:17 10/12/20 14:03 Temperature 36.2 C L Temperature Source Oral Pulse Rate 114 H Pulse Rate [Apical] 96 H Respiratory Rate 20 18 Respiratory Effort / Characteristics Non-Labored Spontaneous Respiratory Depth Normal Respiratory Pattern Regular Blood Pressure 113/73 Blood Pressure [Left Arm] 132/83 Blood Pressure Mean 86 Blood Pressure Mean [Left Arm] 99 Pulse Oximetry 95 97 98 Oxygen Delivery Method Room Air Nasal Cannula Nasal Cannula Oxygen Flow Rate 2 2 Sepsis Recent Fever Within 48 Hours No Sepsis New/Unexplained Change in Mental Status N/A Sepsis Action Taken by Nursing No Action Required 10/12/20 16:00 10/12/20 18:00 Temperature Temperature Source Pulse Rate Pulse Rate [Apical] 85 87 Respiratory Rate 18 Respiratory Effort / Characteristics Respiratory Depth Respiratory Pattern Blood Pressure Blood Pressure [Left Arm] 140/77 Blood Pressure Mean Blood Pressure Mean [Left Arm] 98 Pulse Oximetry 97 97 Oxygen Delivery Method Nasal Cannula Nasal Cannula Oxygen Flow Rate 2 2 Sepsis Recent Fever Within 48 Hours Sepsis New/Unexplained Change in Mental Status Sepsis Action Taken by Nursing Laboratory Data Result diagrams: 10/12/20 12:35 10/12/20 12:35 Lab Results 10/12/20 10/12/20 10/12/20 Range/Units 12:35 12:35 13:00 WBC 13.42 H (4.8-10.8) K/uL RBC 4.68 L (4.7-6.1) M/uL Hgb 13.4 L (14.0-18.0) g/dL Hct 39.9 L (42-52) % MCV 85.3 (80-100) fL MCH 28.6 (25-34) pg MCHC 33.6 (32-36) g/dL RDW Std Deviation 44.3 (36.4-46.3) fL RDW Coeff of Marely 14.4 (11.5-14.5) % Plt Count 218 (130-400) K/uL MPV 10.2 (7.4-10.4) fL Immature Gran % (Auto) 0.3 % Neut % (Auto) 84.2 % Lymph % (Auto) 6.6 % [place] % (Auto) 8.8 % Eos % (Auto) 0.1 % Baso % (Auto) 0.0 % Neut # (Auto) 11.31 H (1.4-6.5) K/uL Lymph # (Auto) 0.88 L (1.2-3.4) K/uL [place] # (Auto) 1.18 H (0.11-0.59) K/uL Eos # (Auto) 0.01 (0-0.5) K/uL Baso # (Auto) 0.00 (0-0.2) K/uL Immature Gran # (Auto) 0.04 H (0.00-0.02) K/uL PT (9.0-12.0) Seconds INR (0.9-1.1) APTT (21.0-31.0) Seconds PTT Ratio Sodium 139 (136-145) mmol/L Potassium 4.1 (3.5-5.1) mmol/L Chloride 106 (98-107) mmol/L Carbon Dioxide 25 (21-32) mmol/L Anion Gap 8.0 (3-11) BUN 27 H (7-18) mg/dl Creatinine 1.43 H (0.6-1.4) mg/dl Est Cr Clr Drug Dosing 32.1 ml/min Est GFR ( Amer) 52.5 Est GFR (Non-Af Amer) 45.3 BUN/Creatinine Ratio 19.1 (10-20) Glucose 118 H (70-99) mg/dl Calcium 9.3 (8.5-10.1) mg/dl Magnesium 1.9 (1.8-2.4) mg/dl Total Bilirubin 0.7 (0.2-1) mg/dl AST 20 (15-37) U/L ALT 32 (12-78) U/L Alkaline Phosphatase 93 (45-117) U/L Troponin I < 0.015 (0-0.045) ng/ml Total Protein 7.2 (6.4-8.2) gm/dl Albumin 3.5 (3.4-5.0) gm/dl Globulin 3.7 (2.5-4.0) gm/dl Albumin/Globulin Ratio 1.0 (0.9-2) TSH 1.340 (0.300-4.500) uIu/ml COVID-19 Eval Order CovFluRsv at [facility] SARS-CoV-2 (PCR) (Negative) Influenza Type A (PCR) (Neg) Influenza Type B (PCR) (Neg) RSV (RT-PCR) (Neg) 10/12/20 10/12/20 Range/Units 13:00 14:14 WBC (4.8-10.8) K/uL RBC (4.7-6.1) M/uL Hgb (14.0-18.0) g/dL Hct (42-52) % MCV (80-100) fL MCH (25-34) pg MCHC (32-36) g/dL RDW Std Deviation (36.4-46.3) fL RDW Coeff of Marely (11.5-14.5) % Plt Count (130-400) K/uL MPV (7.4-10.4) fL Immature Gran % (Auto) % Neut % (Auto) % Lymph % (Auto) % [place] % (Auto) % Eos % (Auto) % Baso % (Auto) % Neut # (Auto) (1.4-6.5) K/uL Lymph # (Auto) (1.2-3.4) K/uL [place] # (Auto) (0.11-0.59) K/uL Eos # (Auto) (0-0.5) K/uL Baso # (Auto) (0-0.2) K/uL Immature Gran # (Auto) (0.00-0.02) K/uL PT 29.3 H (9.0-12.0) Seconds INR 2.9 H (0.9-1.1) APTT 43.9 H (21.0-31.0) Seconds PTT Ratio 1.6 Sodium (136-145) mmol/L Potassium (3.5-5.1) mmol/L Chloride (98-107) mmol/L Carbon Dioxide (21-32) mmol/L Anion Gap (3-11) BUN (7-18) mg/dl Creatinine (0.6-1.4) mg/dl Est Cr Clr Drug Dosing ml/min Est GFR ( Amer) Est GFR (Non-Af Amer) BUN/Creatinine Ratio (10-20) Glucose (70-99) mg/dl Calcium (8.5-10.1) mg/dl Magnesium (1.8-2.4) mg/dl Total Bilirubin (0.2-1) mg/dl AST (15-37) U/L ALT (12-78) U/L Alkaline Phosphatase (45-117) U/L Troponin I (0-0.045) ng/ml Total Protein (6.4-8.2) gm/dl Albumin (3.4-5.0) gm/dl Globulin (2.5-4.0) gm/dl Albumin/Globulin Ratio (0.9-2) TSH (0.300-4.500) uIu/ml COVID-19 Eval Order SARS-CoV-2 (PCR) NEGATIVE (Negative) Influenza Type A (PCR) Negative (Neg) Influenza Type B (PCR) Negative (Neg) RSV (RT-PCR) Negative (Neg) Administered Medications Discontinued Medications Acetaminophen (Acetaminophen 500 Mg Tab) 1,000 mg PO NOW STA Stop: 10/12/20 12:48 Last Admin: 10/12/20 13:03 Dose: Not Given Documented by: [id number] Sodium Chloride (Nss 1000ml) 1,000 mls @ 125 mls/hr IV .Q8H [facility] Stop: 10/12/20 20:29 Last Infusion: 10/12/20 20:04 Dose: 0 mls/hr Documented by: [id number] Admin: 10/12/20 12:48 Dose: 125 mls/hr Documented by: [id number] Sodium Chloride (Nss) 500 mls @ 999 mls/hr IV .Q31M [facility] Stop: 10/12/20 13:00 Last Infusion: 10/12/20 13:10 Dose: 0 mls/hr Documented by: [id number] Admin: 10/12/20 12:38 Dose: 999 mls/hr Documented by: [id number] Ondansetron HCl (Ondansetron Inj 2 Mg/Ml 2 Ml Vial) 4 mg IV NOW STA Stop: 10/12/20 12:48 Last Admin: 10/12/20 13:02 Dose: 4 mg Documented by: [id number] Tramadol HCl (Tramadol Hcl 50 Mg Tablet) 25 mg PO NOW STA Stop: 10/12/20 14:55 Last Admin: 10/12/20 15:16 Dose: 25 mg Documented by: [id number] Tramadol HCl (Tramadol Hcl 50 Mg Tablet) 25 mg PO NOW STA Stop: 10/12/20 17:22 Last Admin: 10/12/20 17:43 Dose: 25 mg Documented by: [id number] Discharge Plan Visit Data Chief Complaint: Illness Stated Complaint: CHEST PAIN,SOB,VOMITING,HX RECENT STROKE ED Provider: Db Clemente Discharge Problem: Pneumonia involving right lung, Vomiting, Headache, Chest pain Discharge Instructions Interventions: ED Discharge Assessment Last Done: 10/12/20 19:03
--- NOTE | 2020-10-12 13:03 | XRay Report ---
XR chest 1V portable HISTORY: 80 years-old Male vomiting acute vomiting COMPARISON: Chest radiograph 10/04/2020 TECHNIQUE: Portable AP view of the chest FINDINGS: Cardiac silhouette is upper limits of normal in size. Unchanged right hemidiaphragmatic elevation. Ca lcified plaque of the thoracic aorta. Ill-defined left lung base with new patchy right lung airspace opacities. Mild pulmonary vascular congestion. No pneumothorax or large pleural effusion. Degenerativ e changes of the spine and right shoulder. Electronic device projects over the left chest. Reverse le ft shoulder total joint arthroplasties. IMPRESSION: Patchy right lung predominant airspace opacities are suggestive of an infectious or infla mmatory pneumonitis. ACT 112: Negative or not required by law. The above report was generated using voice recognition software. It may contain grammatical, syntax o r spelling errors. Electronically signed by: Richard Hi M.D. 10/12/2020 1:01 PM
[2020-10-12 13:04] LABS: Alanine Aminotransferase 32 U/L (12-78); Albumin Level 3.5 gm/dl (3.4-5.0); Aspartate Aminotransferase 20 U/L (15-37); BUN Creatinine Ratio 19.1 (10-20); Blood Urea Nitrogen 27 mg/dl (7-18); Calcium 9.3 mg/dl (8.5-10.1); Carbon Dioxide 25 mmol/L (21-32); Chloride 106 mmol/L (98-107); Creatinine Clr Calc Pharmacy 32.1 ml/min; Est GFR (African American) 52.5; Est GFR (Non-African American) 45.3; Glucose 118 mg/dl (70-99); Magnesium 1.9 mg/dl (1.8-2.4); Potassium 4.1 mmol/L (3.5-5.1); Sodium 139 mmol/L (136-145)
[2020-10-12 13:19] LABS: Alkaline Phosphatase 93 U/L (45-117); Bilirubin,Total 0.7 mg/dl (0.2-1); Globulin 3.7 gm/dl (2.5-4.0); Total Protein 7.2 gm/dl (6.4-8.2); Troponin I < 0.015 ng/ml (0-0.045)
[2020-10-12 13:53] LABS: Influenza A virus by PCR Negative (Neg); Influenza B virus by PCR Negative (Neg); RSV by PCR Negative (Neg); SARS CoV2 RNA(COVID-19) InHosp NEGATIVE (Negative)
--- NOTE | 2020-10-12 14:02 | CT Scan Report ---
CT head/brain wo con CLINICAL HISTORY: Vomiting, headache. Recent stroke. COMPARISON STUDY: Noncontrast head CT dated 10/04/2020, MRI the brain dated 10/04/2020 TECHNIQUE: Axial CT of the brain is performed from the vertex to the skull base. IV contrast was not administered for this examination. A dose lowering technique was utilized adhering to the principles of ALARA. CT DOSE: 537.48 mGy.cm FINDINGS: No intra or extra-axial mass lesions are visualized. There is no CT evidence of acute cortical infarc tion. There is no evidence of midline shift. There is no acute hemorrhage. No calvarial fractures ar e visualized. There are patchy white matter hypodensities likely on a small vessel basis. There is a stable hypoden sity adjacent to the fourth ventricle posteriorly on the right. There are expected evolutionary webber es of the previously described posterior limb of the level the l internal capsule infarct on the left There is no evidence of pathologic ventricular dilatation. There is no evidence of acute sinusitis IMPRESSION: 1. No acute intracranial findings 2. Expected interval evolutionary changes of the previously described infarct at the level of the lef t internal capsule posteriorly. ACT 112: Negative or not required by law. Electronically signed by: Laci Brownlee M.D. 10/12/2020 2:00 PM
[2020-10-12 14:40] LABS: INR 2.9 (0.9-1.1); Partial Thromboplastin Ratio 1.6; Partial Thromboplastin Time 43.9 Seconds (21.0-31.0); Prothrombin Time 29.3 Seconds (9.0-12.0)
[2020-10-12] MEDS ORDERED: traMADol HCL 50 MG TABLET PO STA ×2 (14:54→17:21)
[2020-10-12] MEDS ORDERED: PIPERACILLIN/TAZOBACTAM 4.5 GM/120 ML BAG IV ONE (17:06)
[2020-10-12] MEDS ORDERED: PIPERACILL/TAZOBAC CONSULT ACTIVE PRN (17:06)
--- NOTE | 2020-10-12 18:28 | History & Physical Report ---
Date of Service October 12, 2020 Assessment & Plan (1) Pneumonia involving right lung: Pt is 80 y/o M with PMH CVA, history of PE anticoagulated on warfarin, HTN, HLD, CKD stage III, history of lung CA status post resection, history of prostate cancer status post prostatectomy, chronic anemia and anxiety presented to ER with c/o vomiting, anterior chest pain today Possible aspiration pneumonia CXR: Patchy right lung predominant airspace opacities Negative COVID screen, negative influenza and RSV PCR. WBC: 13, initial troponin negative. INR: 2.9. Not requiring oxygen in ER. Blood cultures pending In ER given Zosyn, IVF, zofran Continue Zosyn Trend troponin Aspiration precautions Gentle IVF CBC, BMP in am (2) History of CVA (cerebrovascular accident): Recent CVA left internal capsule thalamus lacunar infarct- small vessel, 10/04/2020 INR: 2.9 Continue aspirin, warfarin, statin (3) History of pulmonary embolism: On Coumadin INR: 2.9 Continue Coumadin INR in AM (4) HTN (hypertension): Stable Continue amlodipine, carvedilol (5) CKD (chronic kidney disease) stage 3, GFR 30-59 ml/min: Cr: 1.4. Baseline: 1.3 Monitor renal functions, avoid nephrotoxic agents when possible DVT Prophylaxis -On Coumadin Full Code as per discussion with pt Follows with Dr Schumacher for routine care Pt was seen and care coordinated with Dr Arriaga. See addendum History of Present Illness Chief Complaint: Vomiting Primary Care Provider: Ranulfo Schumacher, DO Pt is 80 y/o M with PMH CVA, history of PE anticoagulated on warfarin, HTN, HLD, CKD stage III, history of lung CA status post resection, history of prostate cancer status post prostatectomy, chronic anemia and anxiety presented to ER with c/o vomiting today. Pt with recent hospital admission 10/04/20- for acute CVA. States was doing well at home good appetite and today started with nausea and vomiting. Denies abdominal pain, Also c/o SOB and anterior chest pain. Pt reported cough to ER provider but is denying cough to admitting provider. Since ER arrival pt reports resolution of CP and SOB and has had no further vomiting episodes. Denies fever/chills, diaphoresis, hematemesis, diarrhea, constipation, melena, hematochezia, GONZALEZ, syncope, vision changes, neck pain, orthopnea, palpitations, sore throat, choking, otalgia, rhinorrhea, increased weakness, extremity edema, rashes, urinary symptoms. Allergies Allergy/AdvReac Type Severity Reaction Status Date / Time oxycodone AdvReac Severe became Verified 10/12/20 12:57 apneic and bradycardic Home Medications Medication Instructions Recorded Confirmed Type citalopram 20 mg PO QAM 08/31/18 10/12/20 History pantoprazole 40 mg PO QAM 08/31/18 10/12/20 History carvedilol 6.25 mg PO QAM 03/09/20 10/12/20 History gabapentin 100 mg PO BID 03/09/20 10/12/20 History multivitamin 1 tab PO HS 03/09/20 10/12/20 History meclizine 12.5 mg PO TID PRN 03/12/20 10/12/20 History amlodipine 2.5 mg PO QAM 05/16/20 10/12/20 History aspirin 81 mg PO QAM 07/04/20 10/12/20 History warfarin 5 mg PO DIRECTED 07/04/20 10/12/20 History albuterol sulfate 1 - 2 puff INHALATION DIRECTED 07/07/20 10/12/20 History PRN atorvastatin 40 mg PO HS 10/04/20 10/12/20 History cholecalciferol (vitamin D3) 25 mcg PO QAM 10/04/20 10/12/20 History tramadol 25 mg PO Q8H PRN 10/12/20 10/12/20 History Lactobacillus rhamnosus GG 1 cap PO BID #14 cap 10/14/20 Rx [Culturelle] amoxicillin-pot clavulanate 1 tab PO Q12H #10 tab 10/14/20 Rx [Augmentin] Past Med/Surg History Medical History Asthma Using albuterol inhaler TID now since PEs. Previously wasn't using inhaler at all. Cancer LUNG AND PROSTATE CANCER, both treated surgically Degenerative disc disease GERD (gastroesophageal reflux disease) HTN (hypertension) Migraine HX OF On anticoagulant therapy Osteoarthritis Pre-diabetes Pulmonary embolism hospitalized 03/12/2020-03/15/2020 [facility] w/ BL PE; unk etiology; on coumadin Surgical History History of adenoidectomy History of carpal tunnel release RT X 2 LEFT X 3 History of cataract surgery LEFT/RIGHT History of colonoscopy History of esophagogastroduodenoscopy (EGD) History of herniorrhaphy RT INGUINAL History of laminectomy LUMBAR History of lobectomy of lung RT MIDDLE LOBE History of prostatectomy History of tonsillectomy History of tooth extraction Status post reverse arthroplasty of left shoulder (~05/2020) Family History Father FHx: prostate cancer Grandfather (Paternal) FHx: prostate cancer Social History Smoking Status: Former smoker Tobacco Type: Cigarettes Years Smoked: 50; Second Hand Exposure: No; Hx Alcohol Use: No Hx Substance Use: No Preferred Language: Macedonian Communication Ability: Effective Flue Blower Required: No Beliefs That Will Affect Care: None marital status: Current Living Situation: Spouse and Family Feels Safe at Home: Yes Assistive Devices: Glasses Review of Systems Review of Systems: All systems reviewed & are unremarkable except as noted in HPI & below Physical Exam Physical Exam: General: no acute distress, WDWN Head: normocephalic, atraumatic Eyes: PERRL, conjunctiva non-injected, anicteric ENT: normal inspection external ears, nose, mucous membranes moist Neck: supple, trachea midline Lungs: clear, no respiratory distress, no wheezing/rhonchi/rales CV: RRR, no pretibial edema; chest wall without tenderness to palpation Abd: normal BS, soft, non-tender Ext: no cyanosis, no calf tenderness Neuro: A&O x 3, some slow responses to questions, noother focal deficits noted, normal affect Skin: warm, dry Results & Data Results & Data ([facility]) Vital Signs (Past 12 Hours) Vital Signs Temp Pulse Pulse Resp BP BP Pulse Ox 10/12/20 18:00 87 97 10/12/20 16:00 85 18 140/77 97 10/12/20 14:03 96 H 18 132/83 98 10/12/20 13:17 97 10/12/20 12:06 36.2 C L 114 H 20 113/73 95 Laboratory Results Short CBC 10/12/20 Range/Units 12:35 WBC 13.42 H (4.8-10.8) K/uL Hgb 13.4 L (14.0-18.0) g/dL Hct 39.9 L (42-52) % Plt Count 218 (130-400) K/uL BMP 10/12/20 12:35 Sodium 139 Potassium 4.1 Chloride 106 Carbon Dioxide 25 BUN 27 H Creatinine 1.43 H Glucose 118 H Calcium 9.3 Cardiac Enzymes 10/12/20 Range/Units 12:35 Troponin I < 0.015 (0-0.045) ng/ml Liver Function 10/12/20 Range/Units 12:35 Total Bilirubin 0.7 (0.2-1) mg/dl AST 20 (15-37) U/L ALT 32 (12-78) U/L Alkaline Phosphatase 93 (45-117) U/L Albumin 3.5 (3.4-5.0) gm/dl Diagnostic Findings CT HEAD: IMPRESSION: 1. No acute intracranial findings 2. Expected interval evolutionary changes of the previously described infarct at the level of the left internal capsule posteriorly. CXR: IMPRESSION: Patchy right lung predominant airspace opacities are suggestive of an infectious or inflammatory pneumonitis. Supervising Physician Co-Signing Physician Notes I saw this patient with the physician department assistant, I participated in the history, physical, review of systems, and physical exam. I reviewed the medications with the patient and the physician department assistant and helped reconcile the medications. I helped take a detailed family and social history as well. I formulated the assessment and plan personally with the physician department assistant and went over it with the patient. ROS-No Headache, No Visual Changes, No Nausea, No Vomiting, No Fever, No Chills, No Neck Pain or Stiffness, No Chest Pain, No Palpitations, No SOB, No ZHAO, No Cough, No Sputum, No Wheezing, No Abdominal Pain, No Diarrhea, No Hematemesis, No Hemoptysis, No Unexpected Weight Loss, No Flank pain, No Melena, No Hematochezia, No Frequency, No Urgency, No Burning, No Hematuria, No Rashes, No Diaphoresis. Appetite is Normal Physical Exam Gen-AAO x 3, NAD, Afebrile Head-NCAT, EOMI, PERRLA, Anicteric Sclera, No Posterior Pharyngeal Erythema Neck-Supple, No JVD, No Thyromegaly, No Masses, No LAD, No Bruits Lungs-Clear to Auscultation Bilaterally, No Rales, No Rhonchi, No Wheezing, No Crepitus Chest-No S4, +S1, +S2, No S3, No Murmurs, No Rubs, No Gallops, No Ectopy Abdomen-Soft, Bowel Sounds Present, Non Tender, Non Distended, No Hepatomegaly, No Splenomegaly, No Palpable Masses, No Rebound, No Rigidity, No Guarding Musculoskeletal-Full Range of Motion Bilaterally, No CVAT Extremities-No Cyanosis, No Clubbing, No Edema Nuero-Cranial Nerves II-XII grossly intact, Motor WNL, DTRs WNL, Strength WNL, Non Focal Psych-Normal Mood (1) CKD (chronic kidney disease) stage 3, GFR 30-59 ml/min Chronic kidney disease stage 3 subtype: unspecified whether 3a or 3b Qualified Code(s): N18.30 - Chronic kidney disease, stage 3 unspecified
[2020-10-12] MEDS ORDERED: ALBUTEROL HFA 8 GM INHALER INH PRN (20:00)
[2020-10-12] MEDS ORDERED: traMADol HCL 50 MG TABLET PO PRN (20:00)
[2020-10-12] MEDS ORDERED: MECLIZINE 12.5 MG TAB PO PRN (20:00)
[2020-10-12] MEDS ORDERED: POLYETHYLENE (MIRALAX) 17 GM PACK PO PRN (20:00)
[2020-10-12] MEDS ORDERED: ONDANSETRON INJ 2 MG/ML 2 ML VIAL IV PRN (20:00)
[2020-10-12] MEDS ORDERED: ACETAMINOPHEN 325 MG TAB PO PRN (20:00)
[2020-10-12] MEDS ORDERED: PIPERACILLIN/TAZOBACTAM 4.5 GM in DEXTROSE 5% 100 ML IV ONE (20:30)
[2020-10-12] MEDS: ATORVASTATIN 40 MG TAB PO SCH (20:56)
[2020-10-12] MEDS: MULTIVITAMIN TAB PO SCH (20:57)
[2020-10-12] MEDS: GABAPENTIN 100 MG CAP PO SCH (20:57)
--- NOTE | 2020-10-12 23:19 | Electrocardiogram Report ---
Test Reason : Blood Pressure : / mmHG Vent. Rate : 101 BPM Atrial Rate : 101 BPM P-R Int : 166 ms QRS Dur : 076 ms QT Int : 354 ms P-R-T Axes : 046 -03 014 degrees QTc Int : 459 ms Sinus tachycardia Otherwise normal ECG When compared with ECG of 04-OCT-2020 15:40, No significant change was found Confirmed by Kevin Hollingsworth ([id number]) on 10/12/2020 11:18:38 PM Referred By: Confirmed By:Kevin Hollingsworth
[2020-10-12 23:23] LABS: Appearance Urine Clear (Clear); Bacteria Urine Automated Negative (Negative); Bilirubin Urine Negative (Negative); Blood Urine Negative (Negative); Cast Urine Automated 0 /lpf (0-5); Color Urine Yellow; Glucose Urine UA Negative (Negative); Ketones Urine Negative (Negative); Leukocyte Esterase Urine Negative (Negative); Nitrite Urine Negative (Negative); Protein Urine Trace (Negative); RBC Urine Automated 0-4 /hpf (0-4); Specific Gravity Urine 1.028 (1.000-1.030); Urobilinogen Urine Negative (Negative)
[2020-10-13] MEDS: PIPERACILLIN/TAZOBACTAM 3.375 GM in DEXTROSE 5% 100 ML IV SCH ×3 (01:31→18:17)
[2020-10-13 06:10] LABS: Basophils # (auto) 0.01 K/uL (0-0.2); Basophils % (auto) 0.1 %; Eosinophils # (auto) 0.12 K/uL (0-0.5); Hematocrit (blood only) 33.1 % (42-52); Immature Granulocytes # (auto) 0.02 K/uL (0.00-0.02); Immature Granulocytes % (auto) 0.2 %; Lymphocytes # (auto) 2.06 K/uL (1.2-3.4); Mean Corpuscular Hemoglobin 28.5 pg (25-34); Mean Corpuscular Hgb Conc 33.2 g/dL (32-36); Mean Corpuscular Volume 85.8 fL (80-100); Monocytes # (auto) 0.96 K/uL (0.11-0.59); Monocytes % (auto) 7.9 %; Neutrophils # (auto) 8.94 K/uL (1.4-6.5); Neutrophils % (auto) 73.8 %; Platelet Count 185 K/uL (130-400); RDW Coefficient of Variation 14.6 % (11.5-14.5); RDW Standard Deviation 45.5 fL (36.4-46.3); Red Blood Count 3.86 M/uL (4.7-6.1); White Blood Count 12.11 K/uL (4.8-10.8)
[2020-10-13 06:18] LABS: INR 2.6 (0.9-1.1); Prothrombin Time 26.5 Seconds (9.0-12.0)
[2020-10-13 06:40] LABS: BUN Creatinine Ratio 21.4 (10-20); Calcium 8.4 mg/dl (8.5-10.1); Est GFR (African American) 62.4; Est GFR (Non-African American) 53.8; Potassium 3.8 mmol/L (3.5-5.1)
[2020-10-13] MEDS: ASPIRIN 81 MG ECTAB PO SCH (08:09)
[2020-10-13] MEDS: CITALOPRAM 20 MG TAB PO SCH (08:09)
[2020-10-13] MEDS: carvediloL 6.25 MG TAB PO SCH (08:09)
[2020-10-13] MEDS: amLODIPine BESYLATE 5 MG TAB PO SCH (08:10)
[2020-10-13] MEDS: GABAPENTIN 100 MG CAP PO SCH ×2 (08:10→20:00)
[2020-10-13] MEDS: PANTOprazole 40 MG TAB PO SCH (08:11)
[2020-10-13] MEDS: CHOLECALCIFEROL 1,000 UNITS 25 MCG TAB PO SCH (08:11)
--- NOTE | 2020-10-13 15:12 | Hospitalist Progress Note ---
Date of Service October 13, 2020 Assessment & Plan (1) Pneumonia involving right lung: per admitting service notes: Pt is 80 y/o M with PMH CVA, history of PE anticoagulated on warfarin, HTN, HLD, CKD stage III, history of lung CA status post resection, history of prostate cancer status post prostatectomy, chronic anemia and anxiety presented to ER with c/o vomiting, anterior chest pain today Possible aspiration pneumonia CXR: Patchy right lung predominant airspace opacities Negative COVID Cepheid test, negative influenza and RSV PCR. WBC: 13, initial troponin negative. INR: 2.9. Not requiring oxygen in ER. 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 Baseline: 1.3 at baseline DVT Prophylaxis -On Coumadin Full Code as per discussion with pt Follows with Dr Schumacher for routine care Disposition anticipate d/c home when medically stable Admission and Anticipated Discharge Date Admission Date: October 12, 2020 Subjective ff up for aspiration pneumonia seen resting in bed, comfortable, not in distress pleasant states he feels better compared to yesterday nausea/vomiting has not recurred breathing is fine, no cough/fever/chills/sputum, no chest pain denies abdominal pain, headache, dizziness, problems with urination or BM denies other symptoms Review of Systems Review of Systems: All systems reviewed & are unremarkable except as noted in Subjective Physical Exam Physical Exam: General- oriented x 3, not in distress, speaks in sentences with no effort or accessory muscle use Head- atraumatic Eyes- PERRL, EOMI, anicteric ENT- oropharynx clear Neck- supple, no JVD, no adenopathy, no thyromegaly; carotids +2/2, no bruits appreciated Lungs- (+) mild rales at the right- mid to base clear on the left Heart- normal rate, regular rhythm; no murmur, no gallop, no rub appreciated Abdomen- normal bowel sounds, nondistended, soft, nontender, no masses or hepatosplenomegaly Extremities- no pretibial edema, no calf tenderness; peripheral pulses intact Neuro- alert, oriented x 3; CN 2-12 grossly intact; motor 5/5 bilaterally;sensation 100% on all extremities; no other gross focal neurologic deficits Skin- warm & dry Results & Data Results & Data ([facility]) Vital Signs (Past 12 Hours) Vital Signs Temp Pulse Pulse Resp BP Pulse Ox 10/13/20 11:43 36.9 C 80 18 115/57 L 93 10/13/20 08:00 73 10/13/20 07:23 36.5 C 78 18 120/59 L 92 Laboratory Results Laboratory Results - last 24 hr 10/12/20 10/12/20 10/13/20 20:04 Unknown 01:46 WBC RBC Hgb Hct MCV MCH MCHC RDW Std Deviation RDW Coeff of Marely Plt Count MPV Immature Gran % (Auto) Neut % (Auto) Lymph % (Auto) Gladwin % (Auto) Eos % (Auto) Baso % (Auto) Neut # (Auto) Lymph # (Auto) Gladwin # (Auto) Eos # (Auto) Baso # (Auto) Immature Gran # (Auto) PT INR Sodium Potassium Chloride Carbon Dioxide Anion Gap BUN Creatinine Est Cr Clr Drug Dosing Est GFR ( Amer) Est GFR (Non-Af Amer) BUN/Creatinine Ratio Glucose Calcium Troponin I < 0.015 < 0.015 Urine Color Yellow Urine Appearance Clear Urine pH 5.0 Ur Specific Osburn 1.028 Urine Protein Trace H Urine Glucose (UA) Negative Urine Ketones Negative Urine Blood Negative Urine Nitrite Negative Urine Bilirubin Negative Urine Urobilinogen Negative Ur Leukocyte Esterase Negative Urine WBC (Auto) 1-5 Urine RBC (Auto) 0-4 U Hyaline Cast (Auto) 0 U Epithel Cells (Auto) 5-10 H Urine Bacteria (Auto) Negative 10/13/20 10/13/20 10/13/20 05:25 05:25 05:25 WBC 12.11 H RBC 3.86 L Hgb 11.0 L Hct 33.1 L MCV 85.8 MCH 28.5 MCHC 33.2 RDW Std Deviation 45.5 RDW Coeff of Marely 14.6 H Plt Count 185 MPV 10.0 Immature Gran % (Auto) 0.2 Neut % (Auto) 73.8 Lymph % (Auto) 17.0 Gladwin % (Auto) 7.9 Eos % (Auto) 1.0 Baso % (Auto) 0.1 Neut # (Auto) 8.94 H Lymph # (Auto) 2.06 Gladwin # (Auto) 0.96 H Eos # (Auto) 0.12 Baso # (Auto) 0.01 Immature Gran # (Auto) 0.02 PT 26.5 H INR 2.6 H Sodium 138 Potassium 3.8 Chloride 107 Carbon Dioxide 28 Anion Gap 3.0 BUN 27 H Creatinine 1.24 Est Cr Clr Drug Dosing 37.0 Est GFR ( Amer) 62.4 Est GFR (Non-Af Amer) 53.8 BUN/Creatinine Ratio 21.4 H Glucose 98 Calcium 8.4 L Troponin I Urine Color Urine Appearance Urine pH Ur Specific Os[place] Urine Protein Urine Glucose (UA) Urine Ketones Urine Blood Urine Nitrite Urine Bilirubin Urine Urobilinogen Ur Leukocyte Esterase Urine WBC (Auto) Urine RBC (Auto) U Hyaline Cast (Auto) U Epithel Cells (Auto) Urine Bacteria (Auto) (1) CKD (chronic kidney disease) stage 3, GFR 30-59 ml/min Chronic kidney disease stage 3 subtype: unspecified whether 3a or 3b Qualified Code(s): N18.30 - Chronic kidney disease, stage 3 unspecified
[2020-10-13] MEDS: ADVANCED PROBIOTIC 1250 MG CAPSULE PO SCH (15:48)
[2020-10-13] MEDS ORDERED: WARFARIN SOD 5 MG TAB PO SCH (16:00)
[2020-10-13] MEDS: ATORVASTATIN 40 MG TAB PO SCH (19:59)
[2020-10-13] MEDS: MULTIVITAMIN TAB PO SCH (20:00)
[2020-10-14] MEDS: PIPERACILLIN/TAZOBACTAM 3.375 GM in DEXTROSE 5% 100 ML IV SCH ×2 (01:19→09:51)
[2020-10-14 06:30] LABS: INR 2.3 (0.9-1.1); Prothrombin Time 23.6 Seconds (9.0-12.0)
[2020-10-14 07:14] VITALS: O2SAT 94
[2020-10-14] MEDS: carvediloL 6.25 MG TAB PO SCH (08:15)
[2020-10-14] MEDS: amLODIPine BESYLATE 5 MG TAB PO SCH (08:15)
[2020-10-14] MEDS: GABAPENTIN 100 MG CAP PO SCH (08:15)
[2020-10-14] MEDS: CITALOPRAM 20 MG TAB PO SCH (08:15)
[2020-10-14] MEDS: ADVANCED PROBIOTIC 1250 MG CAPSULE PO SCH (08:15)
[2020-10-14] MEDS: ASPIRIN 81 MG ECTAB PO SCH (08:15)
[2020-10-14] MEDS: CHOLECALCIFEROL 1,000 UNITS 25 MCG TAB PO SCH (08:15)
[2020-10-14] MEDS: PANTOprazole 40 MG TAB PO SCH (08:30)
[2020-10-14 08:35] LABS: Basophils # (auto) 0.01 K/uL (0-0.2); Basophils % (auto) 0.1 %; Eosinophils # (auto) 0.18 K/uL (0-0.5); Eosinophils % (auto) 1.8 %; Hematocrit (blood only) 34.4 % (42-52); Hemoglobin 11.2 g/dL (14.0-18.0); Immature Granulocytes # (auto) 0.01 K/uL (0.00-0.02); Immature Granulocytes % (auto) 0.1 %; Lymphocytes # (auto) 1.61 K/uL (1.2-3.4); Lymphocytes % (auto) 16.4 %; Mean Corpuscular Hemoglobin 28.1 pg (25-34); Mean Corpuscular Hgb Conc 32.6 g/dL (32-36); Mean Corpuscular Volume 86.2 fL (80-100); Mean Platelet Volume 9.8 fL (7.4-10.4); Monocytes # (auto) 0.98 K/uL (0.11-0.59); Neutrophils # (auto) 7.04 K/uL (1.4-6.5); Neutrophils % (auto) 71.6 %; Platelet Count 192 K/uL (130-400); RDW Coefficient of Variation 14.5 % (11.5-14.5); RDW Standard Deviation 45.6 fL (36.4-46.3); Red Blood Count 3.99 M/uL (4.7-6.1); White Blood Count 9.83 K/uL (4.8-10.8)
[2020-10-14 09:11] LABS: Calcium 8.9 mg/dl (8.5-10.1); Creatinine Clr Calc Pharmacy 33.8 ml/min; Est GFR (African American) 50.3; Est GFR (Non-African American) 43.4; Potassium 3.9 mmol/L (3.5-5.1)
[2020-10-14 11:10] VITALS: TEMP 98.2
--- NOTE | 2020-10-14 11:49 | Hospitalist Progress Note ---
Date of Service October 14, 2020 Assessment & Plan (1) Pneumonia involving right lung: likely secondary to Aspiration Pneumonia in the setting of Emesis, History of Moderate Hiatal Hernia per admitting service notes: Pt is 80 y/o M with PMH CVA, history of PE anticoagulated on warfarin, HTN, HLD, CKD stage III, history of lung CA status post resection, history of prostate cancer status post prostatectomy, chronic anemia and anxiety presented to ER with c/o vomiting, anterior chest pain today Possible aspiration pneumonia CXR: Patchy right lung predominant airspace opacities, ll-defined left lung base with new patchy right lung airspace opacities. Negative COVID Cepheid test, negative influenza and RSV PCR. WBC: 13, initial troponin negative. INR: 2.9. Not requiring oxygen in ER. 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 Baseline: 1.3 at baseline DVT Prophylaxis -On Coumadin Full Code as per discussion with pt Follows with Dr Schumacher for routine care Disposition d/c home today ff up with PCP in 1 week plan of care discussed with patient and his son Mukul over the phone all questions were answered he is understanding, agreeable, comfortable with the plan of care Admission and Anticipated Discharge Date Admission Date: October 13, 2020 Subjective ff up for aspiration pneumonia seen resting in bed, sitting up, in good spirits states he feels very well, smiling no shortness of breath, cough, sputum, fever/chills no nausea/vomiting, tolerating diet well, (+) BMs ambulating with no problems no other symptoms states he is ready and would like to be discharged today Review of Systems Review of Systems: All systems reviewed & are unremarkable except as noted in Subjective Physical Exam Physical Exam: General- oriented x 3, not in distress, speaks in sentences with no effort or accessory muscle use Eyes- anicteric Neck- no JVD Lungs- clear breath sounds bilaterally, no crackles, no wheezing good air entry bilaterally Heart- normal rate, regular rhythm; no murmurs Abdomen- normal bowel sounds, nondistended, soft, nontender Extremities- no pretibial edema, no calf tenderness Neuro- alert, oriented x 3; no gross focal neurologic deficits Skin- warm & dry Results & Data Results & Data ([facility]) Vital Signs (Past 12 Hours) Vital Signs Temp Pulse Pulse Resp BP Pulse Ox 10/14/20 11:08 36.8 C 78 18 120/64 94 10/14/20 07:11 36.6 C 84 18 133/77 94 10/14/20 07:09 78 10/14/20 03:00 36.9 C 88 20 120/66 93 Laboratory Results Laboratory Results - last 24 hr 10/14/20 10/14/20 10/14/20 05:56 05:57 05:57 WBC 9.83 RBC 3.99 L Hgb 11.2 L Hct 34.4 L MCV 86.2 MCH 28.1 MCHC 32.6 RDW Std Deviation 45.6 RDW Coeff of Marely 14.5 Plt Count 192 MPV 9.8 Immature Gran % (Auto) 0.1 Neut % (Auto) 71.6 Lymph % (Auto) 16.4 Johnston % (Auto) 10.0 Eos % (Auto) 1.8 Baso % (Auto) 0.1 Neut # (Auto) 7.04 H Lymph # (Auto) 1.61 Johnston # (Auto) 0.98 H Eos # (Auto) 0.18 Baso # (Auto) 0.01 Immature Gran # (Auto) 0.01 PT 23.6 H INR 2.3 H Sodium 138 Potassium 3.9 Chloride 107 Carbon Dioxide 25 Anion Gap 6.0 BUN 22 H Creatinine 1.48 H Est Cr Clr Drug Dosing 33.8 Est GFR ( Amer) 50.3 Est GFR (Non-Af Amer) 43.4 BUN/Creatinine Ratio 15.0 Glucose 98 Calcium 8.9 (1) CKD (chronic kidney disease) stage 3, GFR 30-59 ml/min Chronic kidney disease stage 3 subtype: unspecified whether 3a or 3b Qualified Code(s): N18.30 - Chronic kidney disease, stage 3 unspecified
--- NOTE | 2020-10-14 12:00 | Discharge Summary ---
Date of Service October 14, 2020 Admission HPI Per Admitting Provider Pt is 80 y/o M with PMH CVA, history of PE anticoagulated on warfarin, HTN, HLD, CKD stage III, history of lung CA status post resection, history of prostate cancer status post prostatectomy, chronic anemia and anxiety presented to ER with c/o vomiting today. Pt with recent hospital admission 10/04/20- 10/09/20 for acute CVA. States was doing well at home good appetite and today started with nausea and vomiting. Denies abdominal pain, Also c/o SOB and anterior chest pain. Pt reported cough to ER provider but is denying cough to admitting provider. Since ER arrival pt reports resolution of CP and SOB and has had no further vomiting episodes. Denies fever/chills, diaphoresis, hematemesis, diarrhea, constipation, melena, hematochezia, GONZALEZ, syncope, vision changes, neck pain, orthopnea, palpitations, sore throat, choking, otalgia, rhinorrhea, increased weakness, extremity edema, rashes, urinary symptoms. Admission Exam Per Admitting Provider General: no acute distress, WDWN Head: normocephalic, atraumatic Eyes: PERRL, conjunctiva non-injected, anicteric ENT: normal inspection external ears, nose, mucous membranes moist Neck: supple, trachea midline Lungs: clear, no respiratory distress, no wheezing/rhonchi/rales CV: RRR, no pretibial edema; chest wall without tenderness to palpation Abd: normal BS, soft, non-tender Ext: no cyanosis, no calf tenderness Neuro: A&O x 3, some slow responses to questions, noother focal deficits noted, normal affect Skin: warm, dry Principal Diagnosis RIGHT LOWER LOBE PNEUMONIA, LIKELY ASPIRATION-RELATED Discharge Exam General- oriented x 3, not in distress, speaks in sentences with no effort or accessory muscle use Eyes- anicteric Neck- no JVD Lungs- clear breath sounds bilaterally, no crackles, no wheezing good air entry bilaterally Heart- normal rate, regular rhythm; no murmurs Abdomen- normal bowel sounds, nondistended, soft, nontender Extremities- no pretibial edema, no calf tenderness Neuro- alert, oriented x 3; no gross focal neurologic deficits Skin- warm & dry Discharge Data Allergies Allergy/AdvReac Type Severity Reaction Status Date / Time oxycodone AdvReac Severe became Verified 10/12/20 12:57 apneic and bradycardic Consultations 10/12/20 17:41 ED Decision to Admit Stat 10/12/20 20:00 Consult Case Management - Discharge Planning Routine Ordered Studies CHEST XRAY: FINDINGS: Cardiac silhouette is upper limits of normal in size. Unchanged right hemidiaphragmatic elevation. Calcified plaque of the thoracic aorta. Ill-defined left lung base with new patchy right lung airspace opacities. Mild pulmonary vascular congestion. No pneumothorax or large pleural effusion. Degenerative changes of the spine and right shoulder. Electronic device projects over the left chest. Reverse left shoulder total joint arthroplasties. IMPRESSION: Patchy right lung predominant airspace opacities are suggestive of an infectious or inflammatory pneumonitis. 10/12/20 12:43 CT head/brain wo con Stat FINDINGS: No intra or extra-axial mass lesions are visualized. There is no CT evidence of acute cortical infarction. There is no evidence of midline shift. There is no acute hemorrhage. No calvarial fractures are visualized. There are patchy white matter hypodensities likely on a small vessel basis. There is a stable hypodensity adjacent to the fourth ventricle posteriorly on the right. There are expected evolutionary changes of the previously described posterior limb of the level the l internal capsule infarct on the left There is no evidence of pathologic ventricular dilatation. There is no evidence of acute sinusitis IMPRESSION: 1. No acute intracranial findings 2. Expected interval evolutionary changes of the previously described infarct at the level of the left internal capsule posteriorly. Hospital Course (1) Pneumonia involving right lung: likely secondary to Aspiration Pneumonia in the setting of Emesis, History of Moderate Hiatal Hernia per admitting service notes: Pt is 80 y/o M with PMH CVA, history of PE anticoagulated on warfarin, HTN, HLD, CKD stage III, history of lung CA status post resection, history of prostate cancer status post prostatectomy, chronic anemia and anxiety presented to ER with c/o vomiting, anterior chest pain today Possible aspiration pneumonia CXR: Patchy right lung predominant airspace opacities, ll-defined left lung base with new patchy right lung airspace opacities. Negative COVID Cepheid test, negative influenza and RSV PCR. WBC: 13, initial troponin negative. INR: 2.9. Not requiring oxygen in ER. 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 Baseline: 1.3 at baseline DVT Prophylaxis -On Coumadin Full Code as per discussion with pt Follows with Dr Schumacher for routine care Disposition d/c home today ff up with PCP in 1 week plan of care discussed with patient and his son Mukul over the phone all questions were answered he is understanding, agreeable, comfortable with the plan of care Total Time Total Time Spent Total Time Spent (In Minutes): 40 minutes Discharge Plan Discharge Items Patient Disposition: Home - Self-Care Reason For Visit: PNEUMONIA Discharge Diagnosis: RIGHT LOWER LOBE PNEUMONIA, LIKELY ASPIRATION-RELATED Activity: Resume your previous activity Non-emergency contact: Primary Care Provider Call non-emergency contact if: you have any medication questions, your symptoms worsen and you have a fever Follow-up/Referrals: Ranulfo Schumacher, DO [Primary Care Provider] - Diet: Heart Healthy Addtl Attending Provider Instructions: YOUR NEW MEDICATION IS AUGMENTIN- ANTIBIOTIC FOR PNEUMONIA. PLEASE TAKE A PROBIOTIC DAILY FOR AT LEAST 7-10 DAYS. DRINK PLENTY OF FLUIDS. AVOID BIG MEALS. KEEP HEAD OF THE BED UP WHILE SLEEPING. EAT DINNER AT LEAST 1-2 HOURS BEFORE BEDTIME. TAKE PROTONIX AT LEAST 30 MINUTES BEFORE BREAKFAST. CALL PRIMARY CARE PHYSICIAN OR RETURN TO THE ER IF WITH RETURN OF SYMPTOMS INCLUDING, NAUSEA/VOMITING, ABDOMINAL PAIN, POOR ORAL INTAKE, FEVER/CHILLS, COUGH, SPUTUM PRODUCTION, SHORTNESS OF BREATH. FOLLOW UP WITH PRIMARY CARE PHYSICIAN IN 1 WEEK. THE CLINIC WILL BE CALLING YOU SOON FOR THE APPOINTMENT SCHEDULE. Pending Studies at Discharge: No Stand-Alone Forms: [facility], Smoking Cessation Medications and DC Order Prescriptions: New amoxicillin-pot clavulanate [Augmentin] 875-125 mg tablet 1 tab PO Q12H Qty: 10 RF: 0 Culturelle 10 billion cell capsule 1 cap PO BID Qty: 14 RF: 0 Continued carvedilol 6.25 mg Tablet 6.25 mg PO QAM RF: 0 gabapentin 100 mg Capsule 100 mg PO BID RF: 0 multivitamin Tablet 1 tab PO HS RF: 0 amlodipine 2.5 mg tablet 2.5 mg PO QAM RF: 0 meclizine 12.5 mg tablet 12.5 mg PO TID PRN (Reason: Dizziness) RF: 0 albuterol sulfate 90 mcg/actuation HFA aerosol inhaler 1 - 2 puff INHALATION DIRECTED PRN (Reason: Shortness Of Breath Or Wheezing) RF: 0 atorvastatin 40 mg Tablet 40 mg PO HS RF: 0 cholecalciferol (vitamin D3) 25 mcg (1,000 unit) Tablet 25 mcg PO QAM RF: 0 tramadol 50 mg tablet 25 mg PO Q8H PRN (Reason: Severe Pain (Scale Score 7-10)) RF: 0 citalopram 20 mg tablet 20 mg PO QAM RF: 0 pantoprazole 40 mg tablet,delayed release (DR/EC) 40 mg PO QAM RF: 0 aspirin 81 mg Tablet,Delayed Release (Dr/Ec) 81 mg PO QAM RF: 0 warfarin 5 mg tablet 5 mg PO DIRECTED RF: 0 Discharge Orders: Discharge Order (Routine); Ordered 10/14/20 Ordered By: Maged Noel Admission Data Admit Date/Time: 10/13/20 18:34 Attending Provider: Maged Noel Admit Provider: Wilfred Arriaga Primary Care Provider: Ranulfo Schumacher Other Providers: Wilfred Arriaga
[2020-10-14 12:30] VITALS: BP 145/81; PULSE 80
[2020-10-15] MEDS ORDERED: WARFARIN SOD 2.5 MG TAB PO SCH (16:00)
== END 2020-10-14 13:38 | disposition home or self-care (01) | DRG 179 ==
LOC: ED 12:03 → 2N 12:03 → SUATTDRO 18:02 → 2N 19:03

== ENCOUNTER 2024-10-12 16:58 | Observation (INO) ==
--- NOTE | 2024-10-12 17:46 | XRay Report ---
EXAM: Radiograph of the Chest 1 View INDICATION: Chest pain. TECHNIQUE: Frontal view of the chest. COMPARISON: 10/04/2020 FINDINGS: Lungs and pleural spaces: Shallow inspiration with bilateral basilar scarring. No pleural effusion or pneumothorax. Heart: Stable mild cardiomegaly. Loop recorder noted. Mediastinum: Normal contour. Bones/joints: Satisfactory appearance of left shoulder arthroplasty. No acute osseous abnormality. Soft tissues: No abnormality noted. No radiopaque foreign body noted. Upper abdomen: No abnormality noted. IMPRESSION: Bilateral pulmonary scarring. No acute disease. ACT 112: Negative or not required by law. Electronically signed by Gracia Poe 10-12-2024 5:46 PM
--- NOTE | 2024-10-12 17:53 | Emergency Department Note ---
Impression & Plan Chest pain, Complete left bundle branch block ED Provider Note NAME: BUCK BATISTA AGE: 84 SEX: M : 1940 ARRIVES VIA: Walk-In INFORMANT: Patient, the patient's daughter ED PROVIDER(S): Alexander Huff DO CHIEF COMPLAINT: Chest pain HPI: The patient is an 84-year-old male who presented to the emergency department with his daughter for an evaluation of chest discomfort. The patient has been experiencing symptoms over the course the last couple days. The patient has been describing tightness across the chest as well as some difficulty breathing. It does appear to be worsened with exertion. The patient's daughter states that he does have some anxiety as his was recently admitted to a detention. The patient also takes blood thinners because of a history of venous thromboembolic disease. ROS: See above HPI for pertinent positives & negatives. A total of 10 systems reviewed and were otherwise negative. PAST MEDICAL HISTORY: See Below PAST SURGICAL HISTORY: See Below FAMILY HISTORY: See Below SOCIAL HISTORY: See Below HOME MEDICATIONS: See Below ALLERGIES: See Below VITALS: See Below PHYSICAL EXAMINATION: GENERAL: Patient is awake alert in no acute distress patient is resting comfortably and showing no signs of anxiety EYES: The conjunctivae are clear. The pupils are round and reactive. EARS, NOSE, MOUTH AND THROAT: The nose is without any evidence of any deformity. NECK: The neck is nontender and supple. RESPIRATORY: Normal respiratory effort is noted there is no evidence of wheezing rhonchi or rales CARDIOVASCULAR: Regular rate and rhythm noted there no murmurs rubs or gallops normal S1 normal S2. GASTROINTESTINAL: The abdomen is soft. Abdomen is nontender. MUSCULOSKELETAL/EXTREMITIES: There is no evidence of gross deformity full range of motion is noted in the hips and shoulders. SKIN: There is no obvious evidence of any rash. There are no petechiae, pallor or cyanosis noted. NEUROLOGIC: Patient is awake alert and oriented to person place and situation. He does recognize his daughter. MEDICAL DECISION MAKING: The patient is an 84-year-old male who presented to the emergency department for an evaluation of chest pain. The patient does have some underlying confusion. He made his pain known to his daughter who initially waited to see how he was feeling but then ultimately brought him to the emergency department for concerns of a cardiac cause for his chest pain. The patient does have a history of venous thromboembolic disease. He has been compliant with his outpatient Eliquis. The patient was not significantly tachycardic or hypoxic. The patient's EKG in the emergency department did show a left bundle branch block which would be new compared to previous EKGs. I did receive an EKG from the [facility] system which was done on August 30, 2024. This did not show a bundle branch block. Given this finding as well as the patient's pain I discussed his condition with the on-call [facility] hospitalist. They have agreed to evaluate the patient in the emergency department. Triage Nursing notes reviewed. Prior medical records reviewed Vital Signs: reviewed and remarkable for no significant abnormalities Differential diagnosis: Cardiac ischemia, aortic dissection, pulmonary embolism, pneumothorax, pneumonia, pericarditis, myocarditis, esophageal rupture, GERD, cholecystitis, pancreatitis, musculoskeletal, as well as other pathologies. ER treatment provided: See below Diagnostics interpreted by me: ECG: EKG was obtained in the emergency department. My interpretation is normal sinus rhythm at 77 bpm. Left bundle branch block was noted. No PVCs were noted. This was compared to a tracing from October 12, 2020. The bundle branch block is new compared to the previous tracing. Cardiac Monitoring: An order was placed for continuous cardiac monitoring. The monitor shows a rate of 79 bpm with sinus rhythm. Laboratory studies: As stated above and show below. Imaging studies: See below. Radiographic imaging was reviewed by myself Consultation(s): I discussed this case with Dr. Sheets [facility]. Past Med/Surg History Problem List (Updated 10/12/24 @ 20:15 by Jm Paul DO) Paroxysmal atrial fibrillation Mixed Alzheimer's and vascular dementia Anginal equivalent Dyspnea on minimal exertion Complete left bundle branch block (Acute) Chest pain (Acute) COVID-19 (Acute) Pneumonia involving right lung (Acute) Pneumonia involving right lung Vomiting (Acute) Headache (Acute) Chest pain (Acute) Acute ischemic stroke Acute confusion (Acute) History of CVA (cerebrovascular accident) (Acute) Middle cerebral artery stenosis (Acute) Pre-diabetes Aneurysmal dilatation Weakness (Acute) History of pulmonary embolism Supratherapeutic INR (Acute) Acute cerebrovascular accident (Acute) CKD (chronic kidney disease) stage 3, GFR 30-59 ml/min (Acute) Status post reverse arthroplasty of left shoulder (Acute ~05/2020) HTN (hypertension) Migraine (Chronic) HX OF DVT prophylaxis Medical History On anticoagulant therapy Pulmonary embolism hospitalized 03/12/2020-03/15/2020 [facility] w/ BL PE; unk etiology; on coumadin Degenerative disc disease Osteoarthritis GERD (gastroesophageal reflux disease) Cancer LUNG AND PROSTATE CANCER, both treated surgically Asthma Using albuterol inhaler TID now since PEs. Previously wasn't using inhaler at all. Surgical History History of cataract surgery LEFT/RIGHT History of carpal tunnel release RT X 2 LEFT X 3 History of laminectomy LUMBAR History of prostatectomy History of esophagogastroduodenoscopy (EGD) History of colonoscopy History of herniorrhaphy RT INGUINAL History of lobectomy of lung RT MIDDLE LOBE History of tooth extraction History of tonsillectomy History of adenoidectomy Family History Father FHx: prostate cancer Grandfather (Paternal) FHx: prostate cancer Social History Smoking Status: Former smoker Tobacco Type: Cigarettes Second Hand Exposure: No; Do You Dip or Chew Tobacco: No; Hx Alcohol Use: No Hx Substance Use: No Preferred Language: Bulgarian Communication Ability: Effective Customer Service Clerk Required: No Beliefs That Will Affect Care: None marital status: Current Living Situation: Spouse Feels Safe at Home: Yes Assistive Devices: None Allergies Allergies Allergy/AdvReac Type Severity Reaction Status Date / Time oxycodone AdvReac Severe became Verified 12/11/20 08:02 apneic and bradycardic Home Meds Home Medications Medication Instructions Recorded Confirmed citalopram 20 mg tablet 20 mg PO QAM 08/31/18 12/11/20 pantoprazole 40 mg tablet,delayed 40 mg PO QAM 08/31/18 12/11/20 release carvedilol 6.25 mg tablet 6.25 mg PO QAM 03/09/20 12/11/20 gabapentin 100 mg capsule 100 mg PO BID 03/09/20 12/11/20 multivitamin 1 tab PO HS 03/09/20 12/11/20 meclizine 12.5 mg tablet 12.5 mg PO TID PRN Dizziness 03/12/20 12/11/20 amlodipine 2.5 mg tablet 2.5 mg PO QAM 05/16/20 12/11/20 aspirin 81 mg tablet,delayed 81 mg PO QAM 07/04/20 12/11/20 release albuterol sulfate 90 mcg/actuation 1 - 2 puff inhalation DIRECTED 07/07/20 12/11/20 aerosol inhaler PRN Shortness Of Breath Or Wheezing atorvastatin 40 mg tablet 40 mg PO HS 10/04/20 12/11/20 cholecalciferol (vitamin D3) 25 25 mcg PO QAM 10/04/20 12/11/20 mcg (1,000 unit) tablet tramadol 50 mg tablet 25 mg PO Q8H PRN Severe Pain 10/12/20 12/11/20 (Scale Score 7-10) acetaminophen 325 mg capsule 650 mg Q6 PRN Pain 12/11/20 12/11/20 (Tylenol) apixaban 2.5 mg tablet (Eliquis) 2.5 mg PO BID 12/11/20 12/11/20 diclofenac sodium 1 % topical gel See Rx Instructions .Route .COMPLEX 12/11/20 12/11/20 polyethylene glycol 3350 17 gram 17 g DAILY PRN Constipation 12/11/20 12/11/20 oral powder packet Results & Data (ED) Vital Signs Vital Signs - 24 hr 10/12/24 17:06 10/12/24 17:32 10/12/24 17:34 Temperature 36.5 C Temperature Source Temporal Artery Scan Pulse Rate 87 79 Respiratory Rate 20 Blood Pressure 139/86 Blood Pressure Mean 103 Pulse Oximetry 100 94 Oxygen Delivery Method Room Air Room Air Sepsis Recent Fever Within 48 Hours No Sepsis New/Unexplained Change in Mental Status N/A Sepsis Action Taken by Nursing No Action Required 10/12/24 17:34 Temperature Temperature Source Pulse Rate Respiratory Rate Blood Pressure Blood Pressure Mean Pulse Oximetry 94 Oxygen Delivery Method Room Air Sepsis Recent Fever Within 48 Hours Sepsis New/Unexplained Change in Mental Status Sepsis Action Taken by Care Home Medications Current Medication List: was personally reviewed by me Laboratory Data Attestation: I reviewed the patient's lab results. 10/12/24 17:28 10/12/24 17:28 Lab Results 10/12/24 10/12/24 Range/Units 17:28 19:31 WBC 12.22 H (4.8-10.8) K/ul RBC 4.68 L (4.70-6.10) M/uL Hgb 12.3 L (14.0-18.0) g/dl Hct 38.2 L (42.0-52.0) % MCV 81.6 (80.0-100.0) fL MCH 26.3 (25.0-34.0) pg MCHC 32.2 (32.0-36.0) g/dL RDW Std Deviation 43.3 (36.4-46.3) fL RDW Coeff of Marely 14.9 H (11.5-14.5) % Plt Count 328 (130-400) K/uL MPV 9.5 (9.4-12.4) fL Immature Gran % (Auto) 0.7 % Neut % (Auto) 67.1 % Lymph % (Auto) 21.9 % [place] % (Auto) 9.2 % Eos % (Auto) 0.8 % Baso % (Auto) 0.3 % Neut # (Auto) 8.20 H (1.40-6.50) K/uL Lymph # (Auto) 2.68 (1.20-3.40) K/uL [place] # (Auto) 1.12 H (0.11-0.59) K/uL Eos # (Auto) 0.10 (0.00-0.50) K/uL Baso # (Auto) 0.04 (0.00-0.20) K/uL Immature Gran # (Auto) 0.08 (0.01-0.20) K/uL PT 11.9 (9.0-12.0) Seconds INR 1.1 (0.9-1.1) APTT 27 (21-31) Seconds PTT Ratio 1.0 Sodium 136 (136-145) mmol/L Potassium 4.1 (3.5-5.1) mmol/L Chloride 103 (98-107) mmol/L Carbon Dioxide 25 (21-32) mmol/L Anion Gap 8 (3-11) BUN 18 (6-23) mg/dl Creatinine 1.30 (0.6-1.4) mg/dl Est Cr Clr Drug Dosing Not Reportable eGFR 53.50 BUN/Creatinine Ratio 13.8 (10-20) Glucose 87 (70-99(Fasting)) mg/dl Calcium 9.2 (8.6-10.3) mg/dl Total Bilirubin 0.5 (0.2-1.0) mg/dl AST 20 (13-39) U/L ALT 20 (7-52) U/L Alkaline Phosphatase 88 (34-104) U/L Troponin I High Sens 10.3 9.6 (0-20) pg/ml Total Protein 7.0 (6.0-8.3) gm/dl Albumin 4.1 (3.4-5.0) gm/dl Globulin 2.9 (2.5-4.0) gm/dl Albumin/Globulin Ratio 1.4 (0.9-2) Administered Medications Discontinued Medications Aspirin (Aspirin Chew 324 Mg) 324 mg PO NOW STA Stop: 10/12/24 17:49 Last Admin: 10/12/24 17:58 Dose: 324 mg Documented By: CAW Imaging Data Attestation: I personally reviewed and interpreted this imaging study as follows: My Impression: 1 view chest x-ray was obtained in the emergency department. My interpretation is no free air or definite infiltrate, final report below. Radiologist's Impression: Chest X-Ray 10/12/24 17:14 EXAM: Radiograph of the Chest 1 View INDICATION: Chest pain. TECHNIQUE: Frontal view of the chest. COMPARISON: 10/04/2020 FINDINGS: Lungs and pleural spaces: Shallow inspiration with bilateral basilar scarring. No pleural effusion or pneumothorax. Heart: Stable mild cardiomegaly. Loop recorder noted. Mediastinum: Normal contour. Bones/joints: Satisfactory appearance of left shoulder arthroplasty. No acute osseous abnormality. Soft tissues: No abnormality noted. No radiopaque foreign body noted. Upper abdomen: No abnormality noted. IMPRESSION: Bilateral pulmonary scarring. No acute disease. ACT 112: Negative or not required by law. Electronically signed by Gracia Poe 10-12-2024 5:46 PM Discharge Plan Visit Data Chief Complaint: Shortness of Breath/Dyspnea Stated Complaint: TIGHTENS IN CHEST, SOB ED Provider: Alexander Huff Discharge Problem: Chest pain, Complete left bundle branch block Patient Disposition: Being Evaluated by Hospitalist Forms Stand Alone Forms: My [facility] [employer] Prescriptions Prescriptions: No Action carvedilol 6.25 mg Tablet 6.25 mg PO QAM gabapentin 100 mg Capsule 100 mg PO BID multivitamin Tablet 1 tab PO HS amlodipine 2.5 mg tablet 2.5 mg PO QAM meclizine 12.5 mg tablet 12.5 mg PO TID PRN (Reason: Dizziness) albuterol sulfate 90 mcg/actuation HFA aerosol inhaler 1 - 2 puff INHALATION DIRECTED PRN (Reason: Shortness Of Breath Or Wheezing) atorvastatin 40 mg Tablet 40 mg PO HS cholecalciferol (vitamin D3) 25 mcg (1,000 unit) Tablet 25 mcg PO QAM tramadol 50 mg tablet 25 mg PO Q8H PRN (Reason: Severe Pain (Scale Score 7-10)) citalopram 20 mg tablet 20 mg PO QAM pantoprazole 40 mg tablet,delayed release (DR/EC) 40 mg PO QAM aspirin 81 mg Tablet,Delayed Release (Dr/Ec) 81 mg PO QAM polyethylene glycol 3350 17 gram Powder In Packet 17 g DAILY PRN (Reason: Constipation) acetaminophen [Tylenol] 325 mg Capsule 650 mg Q6 PRN (Reason: Pain) diclofenac sodium 1 % Gel See Rx Instructions .ROUTE .COMPLEX Rx Instructions: apply topically to affected area bid Eliquis 2.5 mg Tablet 2.5 mg PO BID Referrals Referrals: Ranulfo Schumacher DO [Primary Care Provider] - Discharge Problem: Chest pain Qualifiers: Chest pain type: unspecified Qualified Code(s): R07.9 - Chest pain, unspecified
[2024-10-12 17:56] LABS: Basophils # (auto) 0.04 K/uL (0.00-0.20); Basophils % (auto) 0.3 %; Eosinophils % (auto) 0.8 %; Hematocrit (blood only) 38.2 % (42.0-52.0); Hemoglobin 12.3 g/dl (14.0-18.0); Immature Granulocytes # (auto) 0.08 K/uL (0.01-0.20); Immature Granulocytes % (auto) 0.7 %; Lymphocytes # (auto) 2.68 K/uL (1.20-3.40); Lymphocytes % (auto) 21.9 %; Mean Corpuscular Hemoglobin 26.3 pg (25.0-34.0); Mean Corpuscular Hgb Conc 32.2 g/dL (32.0-36.0); Mean Corpuscular Volume 81.6 fL (80.0-100.0); Mean Platelet Volume 9.5 fL (9.4-12.4); Monocytes # (auto) 1.12 K/uL (0.11-0.59); Monocytes % (auto) 9.2 %; Neutrophils % (auto) 67.1 %; Platelet Count 328 K/uL (130-400); RDW Coefficient of Variation 14.9 % (11.5-14.5); RDW Standard Deviation 43.3 fL (36.4-46.3); Red Blood Count 4.68 M/uL (4.70-6.10); White Blood Count 12.22 K/ul (4.8-10.8)
[2024-10-12] MEDS: ASPIRIN CHEW 324 MG PO STA (17:58)
[2024-10-12 18:07] LABS: Alanine Aminotransferase 20 U/L (7-52); Albumin Globulin Ratio 1.4 (0.9-2); Albumin Level 4.1 gm/dl (3.4-5.0); Alkaline Phosphatase 88 U/L (34-104); Anion Gap 8 (3-11); Aspartate Aminotransferase 20 U/L (13-39); BUN Creatinine Ratio 13.8 (10-20); Bilirubin,Total 0.5 mg/dl (0.2-1.0); Blood Urea Nitrogen 18 mg/dl (6-23); Calcium 9.2 mg/dl (8.6-10.3); Carbon Dioxide 25 mmol/L (21-32); Chloride 103 mmol/L (98-107); Globulin 2.9 gm/dl (2.5-4.0); Glucose 87 mg/dl (70-99(Fasting)); Potassium 4.1 mmol/L (3.5-5.1); Sodium 136 mmol/L (136-145)
[2024-10-12 18:13] LABS: Troponin I High Sensitivity 10.3 pg/ml (0-20)
[2024-10-12 18:21] LABS: INR 1.1 (0.9-1.1); Partial Thromboplastin Time 27 Seconds (21-31); Prothrombin Time 11.9 Seconds (9.0-12.0)
--- NOTE | 2024-10-12 20:11 | History & Physical Report ---
Date of Service October 12, 2024 Assessment & Plan (1) Complete left bundle branch block: (2) Dyspnea on minimal exertion: (3) Anginal equivalent: (4) History of CVA (cerebrovascular accident): (5) History of pulmonary embolism: (6) CKD (chronic kidney disease) stage 3, GFR 30-59 ml/min: (7) Cancer: (8) Mixed Alzheimer's and vascular dementia: (9) Paroxysmal atrial fibrillation: Plan Patient presents to the emergency room with progressive dyspnea and chest tightness over the past 4 to 6 weeks. This may be an anginal equivalent. Findings in the emergency room showed new left bundle branch block which was not present approximately 1 month ago Observe in a monitored unit Trend troponins Consult cardiology for new bundle branch block and possible anginal equivalent Plan for stress test in morning Will hold Coreg in the morning in anticipation of stress test, recommend resuming after stress test Laboratory studies and Daughter at bedside agrees with plan of care, discussed advanced directives with daughter and patient both or definitive that he is a DNR DNI. History of Present Illness Chief Complaint: Progressive dyspnea on exertion Primary Care Provider: Ranulfo Schumacher DO Patient is an 84-year-old gentleman who lives independently, his currently [facility] at [facility]. His daughter is with him at all times in his home. He normally ambulates with a rollator. About 4 to 6 weeks ago started noticing have some more shortness of breath and chest tightness with activity and when he is trying to ambulate around his house. He was seen by his outpatient provider. Had echocardiogram and EKG done at that time. Echocardiogram showed normal ejection fraction with no significant wall motion abnormalities. EKG was sinus rhythm and specifically did not show a left bundle branch block. He was instructed by his primary care provider if they noticed that he continued to have shortness of breath he should come to the emergency room for evaluation. Over the last 4 weeks it seems as though that he he has gotten more short of breath with activity and the symptoms occur more often called the PCP today who recommended evaluation in the emergency department. In the emergency room workup really unremarkable. With the exception of a new left bundle branch block seen on EKG. due to his progressive symptoms and new findings on EKG was referred for further evaluation. Time my evaluation patient is asymptomatic. He denies any fever or chills, no cough or cold symptoms. Describes it as shortness of breath mostly with exertion but occasionally while he is sitting at rest. Daughter at bedside also states that he sometimes complains of chest tightness but no real pain or pressure. He denies any nausea or vomiting. No new problems with his bowels or bladder. Has been eating and drinking well. No swelling in his hands arms legs or feet. Allergies Allergy/AdvReac Type Severity Reaction Status Date / Time oxycodone AdvReac Severe became Verified 12/11/20 08:02 apneic and bradycardic Home Medications Medication Instructions Recorded Confirmed Type citalopram 20 mg tablet 20 mg PO QAM 08/31/18 12/11/20 History pantoprazole 40 mg tablet,delayed 40 mg PO QAM 08/31/18 12/11/20 History release carvedilol 6.25 mg tablet 6.25 mg PO QAM 03/09/20 12/11/20 History gabapentin 100 mg capsule 100 mg PO BID 03/09/20 12/11/20 History multivitamin 1 tab PO HS 03/09/20 12/11/20 History meclizine 12.5 mg tablet 12.5 mg PO TID PRN Dizziness 03/12/20 12/11/20 History amlodipine 2.5 mg tablet 2.5 mg PO QAM 05/16/20 12/11/20 History aspirin 81 mg tablet,delayed 81 mg PO QAM 07/04/20 12/11/20 History release albuterol sulfate 90 mcg/actuation 1 - 2 puff inhalation DIRECTED 07/07/20 12/11/20 History aerosol inhaler PRN Shortness Of Breath Or Wheezing atorvastatin 40 mg tablet 40 mg PO HS 10/04/20 12/11/20 History cholecalciferol (vitamin D3) 25 25 mcg PO QAM 10/04/20 12/11/20 History mcg (1,000 unit) tablet tramadol 50 mg tablet 25 mg PO Q8H PRN Severe Pain 10/12/20 12/11/20 History (Scale Score 7-10) acetaminophen 325 mg capsule 650 mg Q6 PRN Pain 12/11/20 12/11/20 History (Tylenol) apixaban 2.5 mg tablet (Eliquis) 2.5 mg PO BID 12/11/20 12/11/20 History diclofenac sodium 1 % topical gel See Rx Instructions .Route .COMPLEX 12/11/20 12/11/20 History polyethylene glycol 3350 17 gram 17 g DAILY PRN Constipation 12/11/20 12/11/20 History oral powder packet Past Med/Surg History Problem List (Updated 10/12/24 @ 20:15 by Jm Paul DO) Paroxysmal atrial fibrillation Mixed Alzheimer's and vascular dementia Anginal equivalent Dyspnea on minimal exertion Complete left bundle branch block (Acute) Chest pain (Acute) COVID-19 (Acute) Pneumonia involving right lung (Acute) Pneumonia involving right lung Vomiting (Acute) Headache (Acute) Chest pain (Acute) Acute ischemic stroke Acute confusion (Acute) History of CVA (cerebrovascular accident) (Acute) Middle cerebral artery stenosis (Acute) Pre-diabetes Aneurysmal dilatation Weakness (Acute) History of pulmonary embolism Supratherapeutic INR (Acute) Acute cerebrovascular accident (Acute) CKD (chronic kidney disease) stage 3, GFR 30-59 ml/min (Acute) Status post reverse arthroplasty of left shoulder (Acute ~05/2020) HTN (hypertension) Migraine (Chronic) HX OF DVT prophylaxis Medical History On anticoagulant therapy Pulmonary embolism hospitalized 03/12/2020-03/15/2020 [facility] w/ BL PE; unk etiology; on coumadin Degenerative disc disease Osteoarthritis GERD (gastroesophageal reflux disease) Cancer LUNG AND PROSTATE CANCER, both treated surgically Asthma Using albuterol inhaler TID now since PEs. Previously wasn't using inhaler at all. Surgical History History of cataract surgery LEFT/RIGHT History of carpal tunnel release RT X 2 LEFT X 3 History of laminectomy LUMBAR History of prostatectomy History of esophagogastroduodenoscopy (EGD) History of colonoscopy History of herniorrhaphy RT INGUINAL History of lobectomy of lung RT MIDDLE LOBE History of tooth extraction History of tonsillectomy History of adenoidectomy Family History Father FHx: prostate cancer Grandfather (Paternal) FHx: prostate cancer Social History Smoking Status: Former smoker Tobacco Type: Cigarettes Second Hand Exposure: No; Do You Dip or Chew Tobacco: No; Hx Alcohol Use: No Hx Substance Use: No Preferred Language: Bolivian Communication Ability: Effective Separator Tender Required: No Beliefs That Will Affect Care: None marital status: Current Living Situation: Spouse Feels Safe at Home: Yes Assistive Devices: None Review of Systems Review of Systems: Pertinent positive and negative review of systems as mentioned in the HPI Physical Exam Physical Exam: Constitutional: Alert, nontoxic, no acute distress HEENT: Mucous membranes moist. Sclera clear Neck: Soft, no adenopathy Lungs: Clear to auscultation, decreased, no wheezes rales or rhonchi CV: S1-S2, regular Abdomen: Soft, nontender, nondistended Extremities: No significant edema Musculoskeletal: No significant joint tenderness Neuro: No focal deficits Psych: Cooperative, normal mood Results & Data Results & Data Vital Signs (Past 12 Hours) Vital Signs Temp Pulse Resp BP Pulse Ox O2 Del Method 10/12/24 17:34 94 Room Air 10/12/24 17:34 94 Room Air 10/12/24 17:32 79 10/12/24 17:06 36.5 C 87 20 139/86 100 Room Air Diagnostic Findings Reviewed imaging, laboratory and diagnostic studies. Pertinent findings as below. Personally reviewed chest x-ray no consolidative infiltrate Personally reviewed EKG, sinus rhythm with a left bundle branch block Reviewed outside EMR. Personally reviewed EKG from August 2024, sinus rhythm no evidence of left bundle branch at that time Echocardiogram done in August 2024 showed ejection fraction of 60% with no significant wall motion abnormalities WBCs 12.2 Hemoglobin 12.3 Coagulation studies within normal range Electrolytes within normal range Creatinine 1.30 Troponin 10.3, 9.6 Code Status & VTE Plan VTE Prophylaxis Plan VTE Prophylaxis will be ordered: No Reason for no VTE drug order: Treatment not indicated (6) CKD (chronic kidney disease) stage 3, GFR 30-59 ml/min Chronic kidney disease stage 3 subtype: unspecified whether 3a or 3b Qualified Code(s): N18.30 - Chronic kidney disease, stage 3 unspecified
[2024-10-12] MEDS ORDERED: NITROGLYCERIN SL 0.4 MG/TAB TAB SL PRN (22:03)
[2024-10-12] MEDS ORDERED: traMADol HCL 50 MG TABLET PO PRN (22:03)
[2024-10-12] MEDS ORDERED: ALUMINUM/MAGNESIUM SUSP 30 ML UDC PO PRN (22:03)
[2024-10-12] MEDS ORDERED: ACETAMINOPHEN 325 MG TAB PO PRN (22:03)
[2024-10-12] MEDS ORDERED: ONDANSETRON INJ 2 MG/ML 2 ML VIAL IV PRN (22:03)
[2024-10-12 22:28] LABS: Adenovirus PCR Not Detected (NotDetected); Bordetella parapertussis PCR Not Detected (NotDetected); Bordetella pertussis PCR Not Detected (NotDetected); Chlamydia pneumoniae PCR Not Detected (NotDetected); Coronavirus 229E PCR Not Detected (NotDetected); Coronavirus CoV-2 (COVID19)PCR Not Detected (NotDetected); Coronavirus HKU1 PCR Not Detected (NotDetected); Coronavirus NL63 PCR Not Detected (NotDetected); Coronavirus OC43PCR Not Detected (NotDetected); Human Metapneumovirus PCR Not Detected (NotDetected); Influenza A PCR Not Detected (NotDetected); Influenza B PCR Not Detected (NotDetected); Mycoplasma pneumoniae PCR Not Detected (NotDetected); Parainfluenza Virus 1 PCR Not Detected (NotDetected); Parainfluenza Virus 2 PCR Not Detected (NotDetected); Parainfluenza Virus 3 PCR Not Detected (NotDetected); Parainfluenza Virus 4 PCR Not Detected (NotDetected); Respiratory Syncytial VirusPCR Not Detected (NotDetected); Rhinovirus/Enterovirus PCR Not Detected (NotDetected)
[2024-10-12] MEDS ORDERED: APIXABAN 2.5 MG TAB PO SCH (22:30)
[2024-10-12] MEDS: ATORVASTATIN 40 MG TAB PO SCH (22:55)
[2024-10-12] MEDS: GABAPENTIN 100 MG CAP PO SCH (22:55)
[2024-10-12] MEDS: Patient's HEIGHT &/or WEIGHT Needed STA (22:55)
[2024-10-12] MEDS: APIXABAN 5 MG TABLET PO SCH (23:01)
--- OUTSIDE RECORDS SUMMARY | 2024-10-13 02:14 | External Medical Summary | Summary of Care ---
Author Name Unknown Organization [facility] Address [address] [place] [address] Phone [phone] Care Team Providers Care Recreation Therapy Director Name Role Phone ShlomohajaRanulfo DO Primary Care Provider [phone] Encounter Details Date Type Department Care Team (Late st Contact Info) Description 10/11/2024 Result Scan Unspecified Department <No scans attached> Allergies Active Allergy Reactions Criticality Noted Date Comments Oxycodone 10/11/2020 caused heart to stopped--per patient documented as of this encounter (statuses as of 10/12/2024) Medications ASPIRIN EC 81 MG PO TBEC Take 1 Tablet by mouth every evening. Active MULTI VITAMIN/MINERALS PO TABS Take 1 Tablet by mouth in the morning. Active PREVIDENT 5000 BOOSTER PLUS 1.1 % DT PSTE [place] onto teeth. Special tooth paste 5 Active Tylenol 325 MG Oral Capsule (Acetaminophen) Take 650 mg by mouth every 6 hours as needed for Pain, Moderate. Active Diclofenac Sodium 1 % External Gel (Voltaren)Indicat ions:Bilateral hand pain Apply topically to affected area 4 g in the morning AND 4 g before bedtime. Apply to bilateral hand two times a day. 350 g 3 2 Active Ondansetron HCl 4 MG Oral Tablet Take by mouth 1 Tablet every 8 hours as needed for Nausea. 30 Tablet 2 Active Magnesium Oxide 400 (240 Mg) MG Oral Tablet Take 1 Tablet by mouth at bedtime. Active Lidocaine 4 % External Patch Place 1 Patch topically on the skin daily. Active Albuterol Sulfate HFA 108 (90 Base) MCG/ACT Inhalation Aerosol Solution Inhale 2 Puffs by mouth every 6 hours as needed. Active Citalopram Hydrobromide 20 MG Oral Tablet (CeleXA)Indicatio ns:Anxiety TAKE ONE TABLET BY MOUTH DAILY IN THE MORNING. 100 Tablet 3 07/25/2024 10:21 AM EDT 3 11/02/19 25 Active Atorvastatin Calcium 40 MG Oral Tablet (Lipitor)Indicati ons:Dyslipidemia, goal LDL below 130 TAKE ONE TABLET BY MOUTH EVERY DAY 100 Tablet 3 07/11/2024 11:07 AM EDT 3 10/19/19 25 Active Apixaban 5 MG Oral Tablet (Eliquis)Indicati ons:PAF (paroxysmal atrial fibrillation) (HCC),History of pulmonary embolism TAKE ONE TABLET BY MOUTH IN THE MORNING AND TAKE ONE TABLET BY MOUTH BEFORE BEDTIME 200 Tablet 3 08/27/2024 12:55 PM EST 4 11/25/19 25 Active Gabapentin 100 MG Oral Capsule (Neurontin)Indica tions:Lumbar degenerative disc disease TAKE ONE CAPSULE BY MOUTH TWICE A DAY -- IN THE MORNING AND IN THE EVENING 200 Capsule 3 08/01/2024 6:22 AM EST 4 01/08/20 25 Active Meclizine HCl 12.5 MG Oral Tablet (Antivert)Indicat ions:Vertigo take one tablet by mouth twice daily 200 Tablet 1 08/01/2024 6:29 PM EST 4 Active Pantoprazole Sodium 40 MG Oral Tablet Delayed Release (Protonix)Indicat ions:Gastroesopha geal reflux disease without esophagitis TAKE ONE TABLET BY MOUTH IN THE MORNING 90 Tablet 1 08/06/2024 3:26 PM EST 4 05/17/20 25 Active Benzonatate 100 MG Oral CapsuleIndication s:Acute bronchitis due to COVID-19 virus Take 1 Capsule by mouth 3 times a day as needed for Cough. 30 Capsule 4 Active Rollator Ultra-LightIndica tions:Lumbar degenerative disc disease,Degenerat alison disc disease, cervical,Gait disturbance,At risk for falls,Abnormality of gait due to impairment of balance Use daily for adl's and to prevent falls. 1 Each 4 Active Carvedilol 6.25 MG Oral Tablet (Coreg)Indication s:HTN, goal below 140/90 TAKE ONE TABLET BY MOUTH EVERY MORNING 100 Tablet 3 10/03/2024 1:13 PM EST 4 06/24/20 25 Active HYDROcodone-Aceta minophen 5-325 MG Oral TabletIndications :Lumbar degenerative disc disease Take 1 Tablet by mouth every 6 hours as needed for Pain, Mild. 45 Tablet 5 Active documented as of this encounter (statuses as of 10/12/2024) Active Problems Problem Noted Date Diagnosed Date Hypertensive kidney disease with stage 3a chronic kidney disease 01/11/2024 Vertigo 12/22/2022 Assessment & Plan (03/20/2023 10:08 AM EDT): Occasionally gets positional vertigo, particularly when bending over. Takes meclizine as needed. Mixed Alzheimer's and vascular dementia 05/26/20 Assessment & Plan (03/20/2023 10:04 AM EDT): At baseline Assessment & Plan (01/27/2023 10:32 AM EDT): At baseline. Assessment & Plan (12/10/2022 6:19 PM EDT): Current at baseline. History of prostate cancer 05/26/2022 Migraine without aura and wi thout status migrainosus, not intractable 10/21/2021 Assessment & Plan (03/20/2023 10:07 AM EDT): Occasionally taking Tylenol for intermittent headaches. Has not needed Vicodin. Assessment & Plan (01/27/2023 10:34 AM EDT): Stable. No migraines for quite some time. -has Vicodin p.r.n. Assessment & Plan (12/10/2022 6:22 PM EDT): Takes Vicodin for severe pain. PAF (paroxysmal atrial fibrillation) 10/21/2021 Assessment & Plan (03/20/2023 10:04 AM EDT): Regular today. Rate controlled. -continue Coreg, Eliquis Assessment & Plan (01/27/2023 10:32 AM EDT): Rate controlled -continue Eliquis, Coreg Assessment & Plan (12/10/2022 6:20 PM EDT): Regular today. -continue Coreg, Eliquis History of pulmonary embolism 10/21/2021 Assessment & Plan (03/20/2023 10:07 AM EDT): Continue Eliquis Assessment & Plan (01/27/2023 10:34 AM EDT): Continue Eliquis Assessment & Plan (12/10/2022 6:22 PM EDT): Continue Eliquis Lumbar degenerative disc disease 10/21/2021 Chronic kidney disease, stage 3a 02/05/2021 Overview: Per CKD protocol Middle cerebral artery stenosis, right 0 Right pontine CVA 08/28/2020 Assessment & Plan (03/20/2023 10:05 AM EDT): Baseline -continue Lipitor, ASA, Coreg Assessment & Plan (01/27/2023 10:33 AM EDT): At baseline -continue Coreg, Lipitor, ASA Assessment & Plan (12/10/2022 6:20 PM EDT): At baseline -continue Coreg, Lipitor, ASA Gastroesophageal reflux disease without esophagi tis 10/11/2019 Assessment & Plan (03/20/2023 10:05 AM EDT): Stable -continue pantoprazole Assessment & Plan (01/27/2023 10:33 AM EDT): Symptoms controlled on pantoprazole Assessment & Plan (12/10/2022 6:21 PM EDT): Symptoms controlled on pantoprazole STACEY (generalized anxiety disorder) 10/11/2019 Assessment & Plan (03/20/2023 10:07 AM EDT): Well controlled on Celexa Assessment & Plan (01/27/2023 10:34 AM EDT): Stable on Celexa Assessment & Plan (12/10/2022 6:22 PM EDT): Well managed on Celexa Degenerative disc disease, cervical 05/20/2017 History of lung cancer 05/16/2013 Pure hypercholesterolemia 05/16/2013 HTN, goal below 140/90 05/16/2013 Assessment & Plan (03/20/2023 10:04 AM EDT): BP stable today. -continue carvedilol Assessment & Plan (01/27/2023 10:32 AM EDT): BP continues to run high -message sent to Dr. Schumacher for possible addition of another medication such as lisinopril -continue Coreg at 6.25 mg twice daily. Assessment & Plan (12/10/2022 6:19 PM EDT): BP slightly elevated. Past results reviewed. Consistently running in the 140s/80s -continue Coreg. -Will discuss BP with PCP next visit Carpal tunnel syndrome 05/16/2013 documented as of this encounter (statuses as of 10/12/2024) Resolved Problems Problem Noted Date Diagnosed Date Resolved Date Prediabetes 12/09/2021 04/10/2022 Overview: Per Prediabetes protocol Hypertensive kidney disease with stage 3b chronic kidney disease 08/06/2020 01/11/2024 Overview: Per CKD protocol Assessment & Plan (03/20/2023 10:06 AM EDT): Due for blood work -BMP ordered -continue Coreg Assessment & Plan (01/27/2023 10:34 AM EDT): Last GFR 53 in 09/18 -possible adjustments to BP meds as noted above. Assessment & Plan (12/10/2022 6:21 PM EDT): Last GFR 53 in 09/18 Pulmonary embolism and infarction 03/19/2020 10/21/2021 Migraine without status migr ainosus, not intractable 10/11/2019 10/21/2021 Hypertensive kidney disease with CKD stage III 11/02/2018 08/09/2020 Overview: Per CKD protocol Kidney disease, chronic, sta ge III (GFR 30-59 ml/min) 07/05/2018 11/11/2018 Overview: Per CKD protocol #1 Small cell lung cancer, right 05/27/2018 05/27/2018 Anxiety 06/13/2015 07/04/2020 Prostate cancer 05/16/2013 11/25/2017 Asthma, moderate persistent 05/16/2013 05/12/2015 GERD (gastroesophageal reflux disease) 05/16/2013 10/11/2019 Migraine 05/16/2013 10/11/2019 documented as of this encounter (statuses as of 10/12/2024) Immunizations Name Administration Dates Next Due COVID-19 mRNA, LNP-s, No Pre serve, 2-Dose Series (Moderna) 07/17/2021,11/28/2020,11/01/2020 COVID-19, LNP-s, No Preserve , Cheng-sucrose, Ages 12+ (Pfizer) 05/13/2022 COVID-19, MRNA-LNP, PF, 30 M CG/0.3 mL, 12 YRS AND ABOVE, IM (PFIZER-Comirnaty) 09/07/2024,07/13/2023 Covid-19, Mrna, Lnp-s, Pf, B ivalent, 30 Mcg, IM, 12 yrs and above (Pfizer) 10/14/2022 Pneumococcal Conjugate Vacc, 13 Valent (Prevnar) 10/25/2015,05/12/2015 Pneumococcal Conjugate Vacci ne, 20-valent ([id number]) 09/07/2024 Pneumococcal Conjugate Vacci ne, 7 Valent 08/08/2012,08/28/2007 Pneumococcal Polysaccharide PPV23 (Pneumovax) 05/20/2017 RSV Vac., Bivalent, Perfusio n F, Pf,0.5 Ml (Abrysvo) 08/25/2023 Season Influenza, Quad, PF, Adjuvanted, 65+ Yrs, IM (FLUAD) 05/28/2020 Seasonal Influenza Vac., MDV , IM, 0.5 mL (Fluzone) 05/30/2015,07/12/2014,06/18/2013,07/29 Seasonal Influenza, High Dos e, Trivalent, PF, IM (Fluzone HD) 05/31/2024 Seasonal Influenza, PF, 6 M & above, IM , (FluLaval or Fluzone) 06/01/2018,07/01/2017 Seasonal Influenza, Quadriva lent Hd (Fluzone Hd) 06/16/2023,06/18/2022 Seasonal Influenza, Quadriva lent, No Preserve, IM 06/10/2016 Seasonal Influenza, Trivalen t, Adjuvanted, 65+ YRS, PF, (Fluad) 06/25/2021,06/22/2019 TDAP (age 10 and older)(Boostrix) 06/26/2023, Varicella Zoster Vaccine (Adult) 06/28/2007 Zoster Vaccine Recombinant (Shingrix) 08/19/2019 ,06/19/2019 documented as of this encounter Social History Tobacco Use Types Packs/Day Years Used Date Smoking Tobacco: Former Cigars Passive Smoke Exposure: Past Smokeless Tobacco: Never Alcohol Use Standard Drinks/Week Comments No 0 (1 standard drink = 0.6 oz pur e alcohol) PHQ-2 Answer Date Recorded PHQ Adult Total Score 0 08/31/2024 Hunger Vital Sign Answer Date Recorded Within the past 12 months, y ou worried that your food would run out before you got the money to buy more. Never true 08/31/20 24 Within the past 12 months, t he food you bought just didn't last and you didn't have money to get more. Never true 08/31/2024 Childcare Answer Date Recorded Do you feel overwhelmed with taking care of a child, family member or friend? No 08/31/2024 Does your family need help f inding childcare? (Household - for ages 0-17 years) Not on file 08/31/2024 Clothing Answer Date Recorded Have you been unable to get clothing when it was really needed? No 08/31/2024 Is your family able to get c lothes or diapers when needed? (Household - for ages 0-17 years) Not on file 08/31/2024 Personal Safety Answer Date Recorded Do you feel unsafe or have concerns for your saf ety? No 08/31/2024 Do you have concerns for you r family's safety? (Household - for ages 0-17 years) Not on file 08/31/2024 Utilities Answer Date Recorded Do you have trouble paying y our heating, water, or electric bill? No 08/31/2024 Is your family able to pay t he heat, water, or electric bill? (Household - for ages 0-17 years) Not on file 08/31/2024 Does your family have access to good internet? (Household - for ages 0-17 years) Not on file 08/31/2024 Employment Status Answer Date Recorded Are you unemployed or without regular income? No 08/31/2024 Does the household have a up health systemr source of income? (Household - for ages 0-17 years) Not on file 08/31/2024 Social Connections Answer Date Recorded How often do you feel lonely or isolated from th ose around you? Never 08/31/2024 Financial Resource Strain Answer Date R ecorded Do you have any trouble payi ng for your medications, or do you think you might in the future? No 08/31/2024 Does your family have troubl e paying for medicine? (Household - for ages 0-17 years) Not on file 08/31/2024 Transportation Needs Answer Date Record ed Do you have trouble getting a ride to medical visits or work? (Adult - for ages 18 years and over) Not on file 08/31/2024 Does your family have a hard time getting a ride to doctors visits? (Household - for ages 0-17 years) Not on file 08/31/2024 Has lack of transportation k ept you from medical appointments, meetings, work, or from getting things needed for daily living? Check all that apply. No 08/31/2024 Do you (or your family) have trouble finding or paying for a ride (transportation)? (Household - for ages 0-17 years) Not on file 08/31/2024 Housing Stability Answer Date Recorded Do you currently live in a s helter or have no steady place to sleep at night? No 08/31/2024 Do you think you are at risk of becoming homeless? (Adult - for ages 18 years and over) Not on file 08/31/2024 Does your family worry about paying for your home or becoming homeless? (Household - for ages 0-17 years) Not on file 1 11/01/2023 Are you homeless or worried that you might be in the future? No 08/31/2024 Are you (or your family) adelaida eless or worried that you might be in the future? (Household - for ages 0-17 years) Not on file Food Insecurity Answer Date Recorded Do you need food for this week? No 08/31/2024 Are you able to get enough f ood for your family? (Household - for ages 0-17 years) Not on file 08/31/2024 Does your family need food t his week? (Household - for ages 0-17 years) Not on file 08/31/2024 Do you always have enough fo od for your family? (Household - for ages 0-17 years) Not on file 08/31/2024 Sex and Gender Information Value Date Recorded Sex Assigned at Male 10/11/2019 9:33 AM EST Legal Sex Male 11:05 AM EDT Gender Identity Male 10/11/2019 9:33 AM EST Sexual Orientation Straight 10/11/2019 9: 33 AM EST documented as of this encounter Plan of Treatment Upcoming Encounters Date Type Department Care Team (Late st Contact Info) Description 10/26/2024 2:00 PM EST Scheduled Telephone [facility] [address] [place] [phone] Nurse Allan Phone Call Inter[facility] [address] [place] [phone] 11/28/2024 2:20 PM EST Office Visit Family Practice [address] [place] [address] [place] [phone] Ranulfo Schumacher DO [address] [facility], [place] [address] Health Maintenance Due Date Last Done Comments Adult Wellness Visit 09/10/2024 09/10/2023, 05/31/20 21 Albumin/Creatinine Ratio 01/10/2025 024, 03/27/2023, 05/26/2022, Additional history exists CKD HGB USE SMARTSET 86848 08/30/202508/30, 08/30/2024, 03/18/2024, Additional history exists CKD PHOS USE SMARTSET 22193 08/30/202511/2023, 09/22/2023, 09/12/2022, Additional history exists Depression Screening 08/31/2025 08/31/2024, 08/30/20 24 DTap/Tdap Vaccines (3 - Td or Tdap) 06/26/2033 06/26/2023, 05/16/2013 Zoster Vaccines Completed 08/19/2019, 05/30, 06/28/2007 Influenza Vaccine (FLU shot) Completed 11/2023, 06/16/2023, 06/18/2022, Additional history exists COVID-19 Vaccine Completed 09/07/2024, , 10/14/2022, Additional history exists Pneumococcal Vaccine: 50+ Years Completed 09/07/2024, 05/20/2017, 10/25/2015, Additional history exists HPV (Gardasil) Vaccine Aged Out No lo nger eligible based on patient's age to complete this topic Hepatitis B Vaccine Aged Out No longe r eligible based on patient's age to complete this topic MENINGOCOCCAL (MENACTRA/MENVEO) Aged Out No longer eligible based on patient's age to complete this topic documented as of this encounter Medical Devices Implanted Type Area Training Instructor Device Identifier Shelf Expiration Date Model / Serial / Lot Plug Mesh Small Hernia - [id number] Implanted:Qty: 1 on 12/28/2017 by Jorge Luis Krause MD at OR [facility] Right: Ksenia CORDON BARD : DAVOL 02/25/2019 [id number] / / [id number] documented as of this encounter Procedures Procedure Name Priority Date/Time Associated Diagnosis Comments PROCEDURE SCANNED RESULT 10/11/2024 documented in this encounter Results * PROCEDURE SCANNED RESULT (10/11/2024) 10/11/2024 us No Physician Data Unknown SURGERY Final Result documented in this encounter Advance Directives Documents on File Type Date Recorded Patient Grant Officer Expl anation Advance Directives and Living Will 01/02/2023 ADVANCE DIRECTIVE / LIVING WILL Power of Project Architect 01/02/2023 POWER OF A TTORNEY Advance Directives and Living Will 11/27/2014 ADVANCE DIRECTIVE / LIVING WILL Power of Project Architect 11/27/2014 POWER OF A TTORNEY Healthcare Agents on File Name Relationship Healthcare [facility]ul Gillian Adult Child Health Care Agen t (per Health Care Power of Project Architect document) Care Teams Recreation Therapy Director Relationship Specialty Start Date End Date Ranulfo Schumacher DO [address] [place] [address] PCP - General Internal Medicine 03/11/24 documented as of this encounter
--- OUTSIDE RECORDS SUMMARY | 2024-10-13 02:14 | External Medical Summary | Summary of Care ---
Author Name Unknown Organization [facility] Address [address] [place] [address] Phone [phone] Care Team Providers Care Beverage Sales Consultant Name Role Phone Charity Schumacher DO Primary Care Provider [phone] Reason for Visit * Reason Onset Date Comments Medication Refill 10/04/2024 Encounter Details Date Type Department Care Team (Late st Contact Info) Description 10/04/2024 Refill Family Practice [address], [place] [address] [place] [address] Charity Schumacher DO [address] [place] [address] Lumbar degenerative disc disease Allergies Active Allergy Reactions Criticality Noted Date Comments Oxycodone 10/11/2020 caused heart to stopped--per patient documented as of this encounter (statuses as of 10/04/2024) Medications ASPIRIN EC 81 MG PO TBEC Take 1 Tablet by mouth every evening. Active MULTI VITAMIN/MINERALS PO TABS Take 1 Tablet by mouth in the morning. Active PREVIDENT 5000 BOOSTER PLUS 1.1 % DT PSTE [place] onto teeth. Special tooth paste 5 Active Tylenol 325 MG Oral Capsule (Acetaminophen) Take 650 mg by mouth every 6 hours as needed for Pain, Moderate. Active Diclofenac Sodium 1 % External Gel (Voltaren)Indica tions:Bilateral hand pain Apply topically to affected area [...] Active Citalopram Hydrobromide 20 MG Oral Tablet (CeleXA)Indicati ons:Anxiety TAKE ONE TABLET BY MOUTH DAILY IN THE MORNING. 100 Tablet 3 07/25/2024 10:21 AM EDT 3 11/02/19 25 Active Atorvastatin Calcium 40 MG Oral Tablet (Lipitor)Indicat ions:Dyslipidemi a, goal LDL below 130 TAKE ONE TABLET BY MOUTH EVERY DAY 100 Tablet 3 07/11/2024 11:07 AM EDT 3 10/19/19 25 Active Apixaban 5 MG Oral Tablet (Eliquis)Indicat ions:PAF (paroxysmal atrial fibrillation) (HCC),History of pulmonary embolism TAKE ONE TABLET BY MOUTH IN THE MORNING AND TAKE ONE TABLET BY MOUTH BEFORE BEDTIME 200 Tablet 3 08/27/2024 12:55 PM EST 4 11/25/19 25 Active Gabapentin 100 MG Oral Capsule (Neurontin)Indic ations:Lumbar degenerative disc disease TAKE ONE CAPSULE BY MOUTH TWICE A DAY -- IN THE MORNING AND IN THE EVENING 200 Capsule 3 08/01/2024 6:22 AM EST 4 01/08/20 25 Active Meclizine HCl 12.5 MG Oral Tablet (Antivert)Indica tions:Vertigo take one tablet by mouth twice daily 200 Tablet 1 08/01/2024 6:29 PM EST 4 Active Pantoprazole Sodium 40 MG Oral Tablet Delayed Release (Protonix)Indica tions:Gastroesop hageal reflux disease without esophagitis TAKE ONE TABLET BY MOUTH IN THE MORNING 90 Tablet 1 08/06/2024 3:26 PM EST 4 05/17/20 25 Active Benzonatate 100 MG Oral CapsuleIndicatio ns:Acute bronchitis due to COVID-19 virus Take 1 Capsule by mouth 3 times a day as needed for Cough. 30 Capsule 4 Active Rollator Ultra-LightIndic ations:Lumbar degenerative disc disease,Degenera tive disc disease, cervical,Gait disturbance,At risk for falls,Abnormalit y of gait due to impairment of balance Use daily for adl's and to prevent falls. 1 Each 4 Active Carvedilol 6.25 MG Oral Tablet (Coreg)Indicatio ns:HTN, goal below 140/90 TAKE ONE TABLET BY MOUTH EVERY MORNING 100 Tablet 3 10/03/2024 1:13 PM EST 4 06/24/20 25 Active HYDROcodone-Acet aminophen 5-325 MG Oral TabletIndication s:Lumbar degenerative disc disease Take 1 Tablet by mouth every 6 hours as needed for Pain, Mild. 45 Tablet 5 Active HYDROcodone-Acet aminophen 5-325 MG Oral TabletIndication s:Lumbar degenerative disc disease Take 1 Tablet by mouth every 6 hours as needed for Pain, Mild. 45 Tablet 3 10/04/19 25 Discontin ued(Refil l) documented as of this encounter (statuses as of 10/04/2024) Active Problems Problem Noted Date Diagnosed Date Hypertensive kidney disease with stage 3a chronic kidney disease 01/11/2024 Vertigo 12/22/2022 Assessment & Plan (03/20/2023 10:08 AM EDT): Occasionally gets positional vertigo, particularly when bending over. Takes meclizine as needed. Mixed Alzheimer's and vascular dementia 05/26/20 22 Assessment & Plan (03/20/2023 10:04 AM EDT): [...] (12/10/2022 6:20 PM EDT): Regular today. -continue Coreg Eliquis History of pulmonary embolism 10/21/2021 Assessment [...] as of this encounter (statuses as of 10/04/2024) Resolved Problems Problem Noted Date Diagnosed Date [...] as of this encounter (statuses as of 10/04/2024) Immunizations Name Administration Dates Next Due COVID-19 [...] (Prevnar) 10/25/2015,05/12/2015 Pneumococcal Conjugate Vacci ne, 20-valent ([id number]) 09/07/2024 Pneumococcal Conjugate Vacci ne, 7 Valent [...] No 08/31/2024 Does the household have a re gular source of income? (Household - for ages [...] AM EST documented as of this encounter Miscellaneous Notes * Telephone Encounter - Charity Schumacher DO - 10/04/2024 12:58 PM ESTSigned Prescriptions: Disp Refills HYDROcodone-Acetaminophen 5-325 MG Oral Ta*45 Tab*0 Sig: Take 1 Tablet by mouth every 6 hours as needed for Pain, Mild.Authorizing Provider: CHARITY SCHUMACHER--------- * Telephone Encounter - Charity Schumacher DO - 10/04/2024 12:58 PM EST I have reviewed the patients controlled substance dispensing history in the Prescription Drug Monitoring Program in compliance with the [facility] regulations before prescribing a controlled substance. Last Tox Screen Results: Results for orders placed or performed in visit on 07/24/17 TOX SCREEN, URINE, W/ CONFIRMATION Result Value Amphetamine NEGATIVE Barbiturates NEGATIVE Benzodiazepines NEGATIVE Cannabinoids NEGATIVE Cocaine Metabolite NEGATIVE Morphine / Codeine NEGATIVE METHADONE METABOLITE NEGATIVE OXYCODONE NEGATIVE TOX COMMENT THE ABOVE SCREENING RESULTS ARE PRESUMPTIVE AND CAN ONLY BE USED FOR MEDICAL PURPOSES. POSITIVE RESULTS REFLEX TO CONFIRMATORY TESTING. Cutoff Concentration *Note: Due to a large number of results and/or encounters for the requested time period, some results have not been displayed. A complete set of results can be found in Results Review. Medication is due * Telephone Encounter - Raven Darby [facility] - 10/04/2024 9:27 AM EST Pending Prescriptions: Disp Refills HYDROcodone-Acetaminophen 5-325 MG Oral Ta*45 Tab*0 Sig: Take 1 Tablet by mouth every 6 hours as needed for Pain, Mild. * Telephone Encounter - Raven Darby [facility] - 10/04/2024 9:27 AM EST I have reviewed the patients controlled substance dispensing history in the Prescription Drug Monitoring Program in compliance with the [facility] regulations before prescribing a controlled substance. PDMP checked on 10/04/2024. Pending Prescriptions: Disp Refills HYDROcodone-Acetaminophen 5-325 MG Oral T*45 Tab*0 Sig: Take 1 Tablet by mouth every 6 hours as needed for Pain, Mild. Last Visit: 08/30/2024 (in office), Visit date not found (telemedicine) Next Visit: 11/28/2024 Date medication was last filled: 09/10/23 Date medication is due for refill: 09/22/2023 Pharmacy: [id number] [place] Is this request for a controlled substance? Yes and Urine Drug Screen Not completed Toxicology results: Results for orders placed or performed in visit on 07/24/17 TOX SCREEN, URINE, W/ CONFIRMATION Result Value Amphetamine NEGATIVE Barbiturates NEGATIVE Benzodiazepines NEGATIVE Cannabinoids NEGATIVE Cocaine Metabolite NEGATIVE Morphine / Codeine NEGATIVE METHADONE METABOLITE NEGATIVE OXYCODONE NEGATIVE TOX COMMENT THE ABOVE SCREENING RESULTS ARE PRESUMPTIVE AND CAN ONLY BE USED FOR MEDICAL PURPOSES. POSITIVE RESULTS REFLEX TO CONFIRMATORY TESTING. Cutoff Concentration *Note: Due to a large number of results and/or encounters for the requested time period, some results have not been displayed. A complete set of results can be found in Results Review. Please approve if appropriate. Thank you, Raven Darby, PharmD. Clinical Pharmacist [facility] 10/04/2024, 9:27 AM * Telephone Encounter - Mariella Sanders CPhT - 10/04/2024 9:22 AM EST Patient needs ordered today Did you pend patient's preferred pharmacy and medication before forwarding?yes Pharmacy: [id number] [id number] [address] Pending Prescriptions: Disp Refills HYDROcodone-Acetaminophen 5-325 MG Oral T*45 Tab*0 Sig: Take 1 Tablet by mouth every 6 hours as needed for Pain, Mild. Last Visit: 08/30/2024 (in office), Visit date not found (telemedicine) Next Visit: 11/28/2024 If no future appointments scheduled, and last appointment is greater than a year ago, please schedule patient for a follow-up appointment Last date the medication was ordered: Is this request for a controlled substance?Yes, What was the last refill date w/ quantity 45 and dosage 5/325mg and Urine Drug Screen Not completed Urine Drug Screen: Results for orders placed or performed in visit on 07/24/17 TOX SCREEN, URINE, W/ CONFIRMATION Result Value Amphetamine NEGATIVE Barbiturates NEGATIVE Benzodiazepines NEGATIVE Cannabinoids NEGATIVE Cocaine Metabolite NEGATIVE Morphine / Codeine NEGATIVE METHADONE METABOLITE NEGATIVE OXYCODONE NEGATIVE TOX COMMENT THE ABOVE SCREENING RESULTS ARE PRESUMPTIVE AND CAN ONLY BE USED FOR MEDICAL PURPOSES. POSITIVE RESULTS REFLEX TO CONFIRMATORY TESTING. Cutoff Concentration *Note: Due to a large number of results and/or encounters for the requested time period, some results have not been displayed. A complete set of results can be found in Results Review. Patient Phone Numbers Labs: Lab Results Component Value Date/Time CREAT 1.3 (H) 08/30/2024 02:49 PM CREAT 1.3 (H) 08/28/2020 12:32 PM POTASSIUM 4.8 08/30/2024 02:49 PM POTASSIUM 4.7 08/28/2020 12:32 PM TSH 3.34 05/26/2022 02:37 PM TSH 2.85 10/11/2019 10:18 AM LDL 89 03/18/2024 03:59 PM LDL 78 03/27/2023 12:32 PM LDL 151 (H) 03/28/2019 09:08 AM LDL NOT APPLICABLE 03/28/2019 09:08 AM ALT 9 (L) 08/30/2024 02:49 PM ALT 8 (L) 07/17/2020 03:51 PM HGBA1C 5.6 03/27/2023 12:32 PM documented in this encounter Plan of Treatment Upcoming Encounters Date Type Department Care Team (Late st Contact Info) Description 10/26/2024 2:00 PM EST Scheduled Telephone Interventional Pain Center [facility] [address] [place] [phone] [facility], Nurse Phone Call Interventional Pain [facility] [address] [place] [id number] 11/28/2024 2:20 PM EST Office Visit Family Practice [address] [place] [address] [address] [facility] [place] [address] Charity Schumacher DO [address] [place] [address] Health Maintenance Due Date Last Done Comments Adult Wellness Visit 09/10/2024 09/10/2023, 05/31/20 21 Albumin/Creatinine Ratio 01/10/2025 024, 03/27/2023, 05/26/2022, Additional history exists CKD HGB USE SMARTSET 26211 08/30/202508/30, 08/30/2024, 03/18/2024, Additional history exists CKD PHOS USE SMARTSET 38194 08/30/202511/2023, 09/22/2023, 09/12/2022, Additional history exists Depression [...] this encounter Medical Devices Implanted Type Area Batch Freezer Device Identifier Shelf Expiration Date Model / Serial / Lot Plug Mesh Small Hernia - [id number] Implanted:Qty: 1 on 12/28/2017 by Jorge Luis Krause MD at [facility] Right: Groin CR BARD : DAVOL 02/25/2019 [id number] / / [id number] documented as of this encounter Visit Diagnoses Diagnosis Advanced care planning/counseling discussion- Primary Other specified counseling HTN, goal below 140/90 Unspecified essential hypertension Mixed Alzheimer's and vascular dementia (HCC) Alzheimer's disease PAF (paroxysmal atrial fibrillation) (HCC) Atrial fibrillation Right pontine CVA (HCC) Unspecified cerebral artery occlusion with cerebral infarction Gastroesophageal reflux disease without esophagitis Esophageal reflux Hypertensive kidney disease with stage 3b chronic kidney disease (HCC) Migraine without aura and without status migrainosus, not intractable Migraine without aura, without mention of intractable migraine without mention of status migrainosus STACEY (generalized anxiety disorder) Generalized anxiety disorder History of lung cancer Personal history of malignant neoplasm of bronchus and lung History of pulmonary embolism Personal history of pulmonary embolism HTN, goal below 140/90- Primary Unspecified essential hypertension Mixed Alzheimer's and vascular dementia (HCC) Alzheimer's disease PAF (paroxysmal atrial fibrillation) (HCC) Atrial fibrillation Right pontine CVA (HCC) Unspecified cerebral artery occlusion with cerebral infarction Gastroesophageal reflux disease without esophagitis Esophageal reflux Hypertensive kidney disease with stage 3b chronic kidney disease (HCC) Migraine without aura and without status migrainosus, not intractable Migraine without aura, without mention of intractable migraine without mention of status migrainosus STACEY (generalized anxiety disorder) Generalized anxiety disorder History of pulmonary embolism Personal history of pulmonary embolism HTN, goal below 140/90- Primary Unspecified essential hypertension Mixed Alzheimer's and vascular dementia (HCC) Alzheimer's disease PAF (paroxysmal atrial fibrillation) (HCC) Atrial fibrillation Right pontine CVA (HCC) Unspecified cerebral artery occlusion with cerebral infarction Gastroesophageal reflux disease without esophagitis Esophageal reflux Hypertensive kidney disease with stage 3b chronic kidney disease (HCC) Migraine without aura and without status migrainosus, not intractable Migraine without aura, without mention of intractable migraine without mention of status migrainosus STACEY (generalized anxiety disorder) Generalized anxiety disorder History of pulmonary embolism Personal history of pulmonary embolism Vertigo Dizziness and giddiness Lumbar degenerative disc disease Degeneration of lumbar or lumbosacral intervertebral disc documented in this encounter Advance Directives Documents on File Type Date Recorded Patient Superintendent Meter Tests Expl anation Advance Directives and Living Will 01/02/2023 ADVANCE DIRECTIVE / LIVING WILL Power of Aeroplane Pilot 01/02/2023 POWER OF A TTORNEY Advance Directives and Living Will 11/27/2014 ADVANCE DIRECTIVE / LIVING WILL Power of Aeroplane Pilot 11/27/2014 POWER OF A TTORNEY Healthcare Agents on File Name Relationship Healthcare Agent [facility] Communication [facility] Adult Child Health Care Agen t (per Health Care Power of Aeroplane Pilot document) Care Teams Beverage Sales Consultant Relationship Specialty Start Date End Date Charity Schumacher DO [address] [place] [address] PCP - General Internal Medicine 03/11/24 documented as of this encounter
--- OUTSIDE RECORDS SUMMARY | 2024-10-13 02:15 | External Medical Summary | Summary of Care ---
Author Name Unknown Organization [facility] Address [address] [place] [address] Phone [phone] Care Team Providers Care Nnps Name Role Phone Ranulfo Schumacher DO Primary Care Provider [phone] Reason for Visit * Auth/Cert Specialty Diagnoses / Procedures Referred By Jennifer de la cruz Referred To Contact Diagnoses Lumbar radiculopathy Lumbar radiculopathy [M54.16] Procedures INJECT DX/THER SUBSTANCE INTERLAMINAR LUMBAR/SACRAL W IMAGE GUIDE INJECTION SPINE LUMBAR OR SACRAL John Ferrer DO [address] [place] [address] Phone: tel: fax: OR [facility], Operating Room [facility] [address] [place] [address] Phone: tel: Referral ID Status Reason Start Date Expiration Date Visits Re quested Visits Authorized [id number] Encounter Details Date Type Department Care Team (Latest Contact Info) Description 09/30/2024 10:04 AM EST - 09/30/2024 11:43 AM EST Hospital Encounter [facility] [address] [place] [address] John Ferrer DO [address] [place] [address] Discharge Disposition: Home - Self Care Allergies Active Allergy Reactions Criticality Noted Date Comments Oxycodone 10/11/2020 caused heart to stopped--per patient documented as of this encounter (statuses as of 09/30/2024) Medications ASPIRIN EC 81 MG PO TBEC Take 1 Tablet by mouth every evening. Active MULTI VITAMIN/MINERALS PO TABS Take 1 Tablet by mouth in the morning. Active PREVIDENT 5000 BOOSTER PLUS 1.1 % DT PSTE [place] onto teeth. Special tooth paste 5 Active [...] 10:21 AM EDT 3 11/02/19 25 Active HYDROcodone-Aceta minophen 5-325 MG Oral TabletIndications :Lumbar degenerative disc disease Take 1 Tablet by mouth every 6 hours as needed for Pain, Mild. 45 Tablet 3 Active Atorvastatin Calcium 40 MG Oral Tablet [...] BY MOUTH EVERY MORNING 100 Tablet 3 06/24/2024 10:19 AM EDT 4 06/24/20 25 Active documented as of this encounter (statuses as of 09/30/2024) Active Problems Problem Noted Date Diagnosed Date [...] AM EDT): Regular today. Rate controlled. -continue Jose Garvey Assessment & Plan (01/27/2023 10:32 AM EDT): Rate controlled -continue Jose Coreg Assessment & Plan (12/10/2022 6:20 PM EDT): Regular today. -continue Vincenzo Garveyis History of pulmonary embolism 10/21/2021 Assessment & [...] as of this encounter (statuses as of 09/30/2024) Resolved Problems Problem Noted Date Diagnosed Date [...] as of this encounter (statuses as of 09/30/2024) Immunizations Name Administration Dates Next Due COVID-19 mRNA, LNP-s, No Pre serve, 2-Dose Series (Moderna) 07/17/2021,11/28/2020,11/01/2020 COVID-19, LNP-s, No Preserve , Cheng-sucrose, Ages 12+ (Huoli) 05/13/2022 COVID-19, MRNA-LNP, PF, 30 M CG/0.3 mL, 12 YRS AND ABOVE, IM ([facility]) 09/07/2024,07/13/2023 Covid-19, Mrna, Lnp-s, Pf, B ivalent, 30 Mcg, IM, 12 yrs and above ([facility]oli) 10/14/2022 Pneumococcal Conjugate Vacc, 13 Valent (Prevnar) 10/25/2015,05/12/2015 Pneumococcal Conjugate Vacci ne, 20-valent (Aiifvyw21) 09/07/2024 Pneumococcal Conjugate Vacci ne, 7 Valent [...] AM EST documented as of this encounter Last Filed Vital Signs Vital Sign Reading Time Taken Comments Blood Pressure 163/84 09/30/2024 11:35 AM EST Pulse 70 09/30/2024 11:35 AM EST Temperature 36.7 C (98 F) 09/30/2024 11:35 AM EST Respiratory Rate 17 09/30/2024 11:35 AM EST Oxygen Saturation 99% 09/30/2024 11:35 AM EST Inhaled Oxygen Concentration - - Weight 68 kg (150 lb) 09/30/2024 10:53 AM EST Height 157.5 cm (5' 2") 09/30/2024 10:53 AM EST Body Mass Index 27.44 09/30/2024 10:53 AM EST documented in this encounter Discharge Instructions * Discharge Instr - AVS* John Ferrer DO - 09/30/2024 11:33 AM EST [facility] [address] [place] [address] Discharge Date: 09/30/2024 You [facility] call [facility] at [phone] during business hours. For after-hours emergencies call 911. Your attending physician at the time of your discharge was: [facility] Fer[facility] DO [address] [facility] [address] The information below provides you with the instructions and the list of medications you need to betaking following discharge from the hospital. If you have any questions, please ask before leaving.Please carry this letter with you when you see your doctor in the clinic. Diet: Resume your normal diet If you are diabetic, follow your blood sugars closely for next 2-3 days as they are likely to be elevated. If you are having difficulty controlling your blood sugars call your family doctor or the physician that treats your diabetes. Activity: Do not engage in strenuous activity today Resume your normal activities tomorrow Do not soak in water for 24 hours. No swimming, hot tub or bath but showering is allowed. Do not use heat on the injection site for 24 hours. If uncomfortable ice may be helpful. Some injections may make your arms or legs weak for a few hours. Be extremely careful when walking or changing positions that you do not fall. Have someone assist you for the next 6 hours. If weakness or numbness becomes progressive CALL IMMEDIATELY or GO TO THE NEAREST EMERGENCY ROOM Do not restart physical therapy or chiropractic manipulation until 48 hours after your injection Call : If weakness or numbness suddenly becomes worse or become progressive If the injection site becomes red, swollen, warm to the touch, begins to bleed or drain fluid, or is excessively painful. If you have any questions Medications: Resume all the medications you were taking prior to your injection. Resume your anticoagulants tomorrow unless otherwise instructed by your family physician, human resources office assistant or the anticoagulation clinic. Additional Instructions: None Driving: You may resume driving in 12-24 hours if no weakness is noted . Date you may return to work or school: N/A Follow Up: Please make a follow-up telephone appointment with our nursing staff in 4-6 weeks. documented in this encounter Progress Notes * John Ferrer DO - 09/30/2024 11:33 AM EST [facility] [address] [place] [address] OUTPATIENT SURGERY DISCHARGE SUMMARY NOTE Name: Mor French Location: OR [facility]/OR Date: 09/30/2024 Time: 11:33 AM Surgery Date: 09/30/2024 Procedure: INJECTION SPINE LUMBAR OR SACRAL No laterality found for procedure #1 Surgeon: Nabil, Max Marc, DO Discharge Diagnosis: lumbosacral spinal stenosis After examination of this patient, I have determined he is ready for discharge to home when the patient meets criteria. Discharge instructions were given to the patient. John Ferrer DO OR [facility], Operating Room [facility] [address] [place] [address] documented in this encounter H&P Notes * John Ferrer DO - 09/30/2024 11:15 AM EST Interventional Pain H&P Subjective: History of Present Illness: Mor French is a 84 year old year-old male with a past medical history significant for lumbar radicular pain and spinal stenosis who is presenting for L3/4 ZACHARY to improve his pain and function. his pain is essentially unchanged since our last office visit with him. ASA 3 AW nml Review of Systems: A focused 12-pt ROS were of reviewed with the patient including difficulty with sleep, snoring, aspiration history, dysphagia, stomach pain, nausea and vomiting, severe headaches, confusion, open skin lesions or wounds, chest pain, shortness of breath, excessive thirst, somnolence, dysuria, incomplete bladder emptying, easy bruising, recent clotting problems or bleeding, depression or rushed thoughts unless noted previously. Allergies Review of patient's allergies indicates: Allergen Reactions Oxycodone caused heart to stopped--per patient Medications, Past Medical History, Past Surgical History reviewed and documented in Epic. See detailed report if needed. Pertinent Labs/Test Results: INR ( ) Date Value 08/28/2020 2.21 (H) Fingerstick INR (INR) Date Value 11/27/2020 2.0 10/24/2020 1.4 No results found for: "CREATININE" Hemoglobin A1C (%) Date Value 03/27/2023 5.6 Lab Results Component Value Date/Time AMPHETAMINES - [facility] NEGATIVE 07/24/2017 10:11 AM BARBITURATES - [facility] NEGATIVE 07/24/2017 10:11 AM BENZODIAZEPINES - [facility] NEGATIVE 07/24/2017 10:11 AM METHADONE METABOLITE NEGATIVE 07/24/2017 10:11 AM OXYCODONE NEGATIVE 07/24/2017 10:11 AM CANNABINOIDS - [facility] NEGATIVE 07/24/2017 10:11 AM URINE TEMPERATURE 96 07/24/2017 10:11 AM Imaging: I personally reviewed the imaging and my findings were . XR CHEST 2 VIEWS Narrative: EXAM XR CHEST 2 VIEWS - 08/30/2024 2:44 pm HISTORY "shortness of breath" TECHNIQUE Frontal and lateral views of the chest were obtained. COMPARISON XR CHEST 2 VIEWS, ACC: [id number], dated 2023-06-26 15:56:07 FINDINGS The lungs are clear. There is no pleural effusion or pneumothorax. The cardiomediastinal silhouetteis within normal limits. A device projects over the heart. Left shoulder arthroplasty. Impression: IMPRESSION No active disease. Objective Physical Exam: Vital Signs: BP 150/73 | Pulse 75 | Temp 36.7 C (98 F) (Tympanic) | Resp 18 | Ht 1.575 m (5' 2") | Wt 68 kg (150 lb) | SpO2 95% | BMI 27.44 kg/m | BSA 1.72 m Body mass index is 27.44 kg/m. General: No apparent distress. Eyes: pupils equal and round, sclera white, pupils midsize. ENT: mucous membranes moist Resp: Non-labored breathing CV: Extremities warm and well-perfused. Psych: Oriented; affect warm, insight good. Skin: No rashes or lesions appreciated on exposed skin Neuromuscular Exam: Facet loading neg, SLR pos, TTT over lumbar spine Assessment: Mor is a 84 year old year-old male with: Lumbar spinal stenosis Lumbar radicular pain Plan: The patient is undergoing L3/4 ZACHARY today to alleviate his pain and improve his function. The risks,benefits and alternatives to the procedure were reviewed at length and the patient was provided theopportunity to ask questions which were answered to their voiced understanding. Following this comprehensive discussion, the patient opted to proceed. The patient was consented to the procedure follow ing this comprehensive conversation. John Ferrer DO OR [facility], Operating Room [facility] [address] [facility] [place] [address] documented in this encounter Nursing Notes * Ariela Salvador RN - 09/30/2024 11:38 AM EST Visited by Dr Ferrer. Verbalized understanding of discharge directions. Ready for discharge to home. * Meenu Cortes RN - 09/30/2024 11:29 AM EST Band aid applied to area. Patient transferred to PACU 11 via wheelchair * Meenu Cortes RN - 09/30/2024 11:21 AM EST Patient tolerating pain management injection well. documented in this encounter OR Notes * OR Surgeon - John Ferrer DO - 09/30/2024 11:04 AM EST INTERLAMINAR LUMBAR EPIDURAL STEROID INJECTION DATE: 09/30/2024 PHYSICIAN: John Ferrer DO PREOPERATIVE DIAGNOSIS: Lumbar spondylosis with lumbar radiculopathy. POSTOPERATIVE DIAGNOSIS: Lumbar spondylosis with lumbar radiculopathy. PROCEDURE PERFORMED: L3/4 interlaminar epidural steroid injection on the left side. Fluoroscopy for precise needle placement. ANESTHESIA: Local infiltration with 1% lidocaine. MONITORS: Automatic blood pressure cuff, pulse oximetry. There was no certified pharmacist assistant, EBL or drains placed during this procedure. INDICATIONS: I had the pleasure of seeing Mor French ([id number]) in the pain management clinic at the the [facility] today. Mor French is a 84 year old year-old malehas a history of lumbar radiculopathy. he is here today for an interlaminar lumbar epidural steroidinjection today. MEDICATIONS: No current facility-administered medications for this encounter. ALLERGIES: Review of patient's allergies indicates: Allergen Reactions Oxycodone caused heart to stopped--per patient REVIEW OF SYSTEMS: Negative for fever, chills, chest pain, SOB, bleeding abnormalities, nausea, vomiting, diarrhea, worsening edema, or new rashes. FOCUSED PHYSICAL EXAMINATION: The patient is awake, alert and oriented, and is in no acute distress. Vital signs are stable. The patient is afebrile. The rest of the PE is essentially unchanged from the patient's recent visit to our office. I explained the procedure to the patient including the risks, benefits and alternatives to the procedure. The risks discussed with the patient included but were not limited to: bleeding, infection, and damage to surrounding nerves, tissues, and organs, paralysis, increased pain, pain at the site ofinjection, allergic reaction, blood pressure instability, seizures, heart block, headaches, increase in blood sugar, worsening of glaucoma, blindness, manic episodes, mood instability, . Alternatives to the procedure were also explained and include: do nothing, surgery, medications, and physical therapy. The patient verbalized understanding and was willing to proceed. PROCEDURE IN DETAIL: An informed consent was obtained. The patient was taken to the procedure room,was positively identified by the staff and attending physician. The patient was positioned prone onthe procedure bed. Vital signs were monitored as above and remained stable throughout the procedure. The skin was prepped and draped in a standard sterile fashion. A surgical pause time-out was performed and agreed upon by the members of the team. Fluoroscopic view of the lumbar spine was obtained and the area of interest was identified. The skin and subcutaneous tissues were anesthetized using 1% lidocaine and 25-gauge 1-1/2 inch needle. After that, a 20-gauge, 3.5-inch epidural needle was advanced towards the L3/4 interlaminar window in the left paramedian position. AP, contralateral oblique and lateral views were used to assess appropriate needle position. Loss of resistance to air technique was utilized and was obtained at 7 cm from the skin. The needle's position was additionally verified by injecting radiopaque dye, which showed spread of the dye in the epidural space in AP and lateral views. After negative aspiration for CSF and blood, 80 mg of Kenalog diluted in 1 mL of 1% lidocaine and 1mL of sterile PFNS was injectedinto the epidural space. The needle was withdrawn. The patient tolerated the procedure well. COMPLICATIONS: None. DISPOSITION: 1. Return to clinic in 1-2 months for follow-up evaluation, sooner as needed. 2. Resume activity as tolerated. 3. Patient can drive after 12-24 hours if no weakness noted. John Ferrer DO [facility], Operating Room [facility] [address] [place] [address] documented in this encounter Plan of Treatment Upcoming Encounters Date Type Department Care Team (Late st Contact Info) Description 10/26/2024 2:00 PM EST Scheduled Telephone Interventional Pain Center [facility] [address] [place] [address] Nurse Allan Phone Call Interventional Pain [facility] [address] [place] [address] 11/28/2024 2:20 PM EST Office Visit Family Practice [address] [place] [address] [address] [facility], [place] [address] Ranulfo Schumacher DO [address] [facility] [place] [address] Scheduled Procedures Name Priority Associated Diagnoses Date/Ti me INJECTION SPINE LUMBAR OR SACRAL Lumbar radiculopathy 09/30/2024 11:18 AM EST Health Maintenance Due Date Last Done Comments Adult Wellness Visit 09/10/2024 09/10/2023, 05/31/20 21 Albumin/Creatinine Ratio 01/10/2025 024, 03/27/2023, 05/26/2022, Additional history exists CKD HGB USE SMARTSET 78618 08/30/202508/30, 08/30/2024, 03/18/2024, Additional history exists CKD PHOS USE SMARTSET 58766 08/30/202511/2023, 09/22/2023, 09/12/2022, Additional history exists Depression [...] this encounter Medical Devices Implanted Type Area Manager Commodities Device Identifier Shelf Expiration Date Model / Serial / Lot Plug Mesh Small Hernia - [id number] Implanted:Qty: 1 on 12/28/2017 by Jorge Luis Krause MD at OR [facility] Right: Groin CR BARD : DAVOL 02/25/2019 [id number] / / [id number] documented as of this encounter Procedures Procedure Name Priority Date/Time Associated Diagnosis Comments FLUORO INTERVENTIONAL PAIN PROCEDURE NONBILLABLE Routine 09/30/2024 11:40 AM EST documented in this encounter Results * FLUORO INTERVENTIONAL PAIN PROCEDURE NONBILLABLE (09/30/2024 11:40 AM EST) Narrative Scheduling, Silent - 09/30/2024 11:40 AM EST This procedure will not be read by a Radiologist. Please see operative note. us John Ferrer DO RAD FLUOROSCOPY Final Result documented in this encounter Administered Medications Inactive Administered Medications - up to 3 most recent administrations Medication Order MAR Action Action Date Dose Rate Site Iohexol (Omnipaque 240) inj 0.5 mL 0.5 mL, Epidural, ONCE, On Thu09/30/24 at 1115, For 1 dose, For caudal epidural Given 09/30/2024 11:23 AM EST 3 mL lidocaine 1 % inj 20 mg 20 mg (2 mL), Subcutaneous, ONCE, On Thu09/30/24 at 1115, For 1 dose Given 09/30/2024 11:21 AM EST 5 mL Other-Specify Triamcinolone Acetonide (Kenalog) 40 MG/ML inj 40 mg 40 mg, Injection, ONCE, On Thu09/30/24 at 1115, For 1 dose Given 09/30/2024 11:29 AM EST 80 mg documented in this encounter Active and Recently Administered Medications Times are shown in EST. Scheduled Medication Order 09/28/2024 09/29/2024 09/30/2024 Iohexol (Omnipaque 240) inj 0.5 mL (COMPLETED) 0.5 mL, Epidural, ONCE, On Thu09/30/24 at 1115, For 1 dose, For caudal epidural 1123 (Given - Provid er: Meenu Cortes RN) lidocaine 1 % inj 20 mg (COMPLETED) 20 mg (2 mL), Subcutaneous, ONCE, On Thu09/30/24 at 1115, For 1 dose 1121 (Given - Provid er: Meenu Cortes RN) Triamcinolone Acetonide (Kenalog) 40 MG/ML inj 40 mg (COMPLETED) 40 mg, Injection, ONCE, On Thu09/30/24 at 1115, For 1 dose 1129 (Given - Provid er: Meenu Cortes RN) documented in this encounter Advance Directives Documents on File Type Date Recorded Patient Product Safety Specialist Expl anation Advance Directives and Living Will 01/02/2023 ADVANCE DIRECTIVE / LIVING WILL Power of Web Site Project Manager 01/02/2023 POWER OF A TTORNEY Advance Directives and Living Will 11/27/2014 ADVANCE DIRECTIVE / LIVING WILL Power of Web Site Project Manager 11/27/2014 POWER OF A TTORNEY Healthcare Agents on File Name Relationship Healthcare Agent Relationshi p Communication Mukul French Adult Child Health Care Agen t (per Health Care Power of Web Site Project Manager document) Care Teams Nnps Relationship Specialty Start Date End Date Ranulfo Schumacher DO [address] [place] [address] PCP - General Internal Medicine 03/11/24 documented as of this encounter
--- OUTSIDE RECORDS SUMMARY | 2024-10-13 02:15 | External Medical Summary ---
Author Name Unknown Address Unknown Organization [id number]:[facility] [address] [facility] [address] Laboratory Report Ordering Provider Test Date Status JUDSON NASH 08/30/2024 14:49:16 Final Observation Date Value Abnormality Reference (Units ) Status SYNC LEUKOCYTES IN BLOOD BY AUTOMATED COUNT 08/30/2024 14:49:16 7.42 4.00-10.80 (K/uL) Final Segs 08/30/2024 14:49:16 50.9 40.0-75.0 (%) Final Lymphs % 08/30/2024 14:49:16 34.0 18.0-42.0 (%) Final Monos 08/30/2024 14:49:16 10.8 1.0-11.0 (%) Final Eosinophils 08/30/2024 14:49:16 3.6 0.0-6.0 (%) Final Basos 08/30/2024 14:49:16 0.4 0.0-2.0 (%) Final Immature Granulocyte, Percent 08/30/2024 14:49:16 0.3 0.0-2.0 (%) Final Absolute Segs 08/30/2024 14:49:16 3.78 1.80-7.70 (K/uL) Final Lymphs, absolute 08/30/2024 14:49:16 2.52 1.00-4.80 (K/ul) Final Monos, Abs 08/30/2024 14:49:16 0.80 0.00-1.10 (K/uL) Final Eos, Abs 08/30/2024 14:49:16 0.27 0.00-0.70 (K/uL) Final Basos, Abs 08/30/2024 14:49:16 0.03 0.00-0.20 (K/uL) Final Immature Granulocytes, Number 08/30/2024 14:49:16 0.02 0.00-0.20 (K/uL) Final Performing Location [facility] [address] [facility] [id number]
--- OUTSIDE RECORDS SUMMARY | 2024-10-13 02:15 | External Medical Summary | Summary of Care ---
Author Name Unknown Organization [facility] Address [address] [place] [address] Phone [phone] Care Team Providers Care Crop Puller Name Role Phone Ranulfo Schumacher DO Primary Care Provider [phone] Reason for Referral * Precert (Diagnostic Medical) (Within 10 days (routine)) - Authorized Specialty Diagnoses / Procedures Referred By Contac t Referred To Contact Cardiac Studies Diagnoses Shortness of breath Procedures ECHO, COMPLETE (2D), TRANS-THORACIC Ranulfo Schumacher DO [address] [place] [address] Phone: tel: fax: Referral ID Status Reason Start Date Expiration Date V isits Requested Visits Authorized [id number] Authorized Precert 08/30/2024 999 999 Reason for Visit * Reason Comments Follow Up Encounter Details Date Type Department Care Team (Latest Contact Info) Description 08/30/2024 1:40 PM EST Office Visit Family Practice [address] [facility], [place] [address] [place] [id number] Ranulfo Schumacher DO [address] [place] [address] Shortness of breath*; Mixed Alzheimer's and vascular dementia (HCC); Hypertensive kidney disease with stage 3a chronic kidney disease ([facility]); Pure hypercholesterolemia; History of lung cancer; STACEY (generalized anxiety disorder); Gastroesophageal reflux disease without esophagitis; PAF (paroxysmal atrial fibrillation) ([facility]); History of pulmonary embolism; Degeneration of intervertebral disc of lumbar region with discogenic back pain; History of prostate cancer; Risk and functional assessment; Need for pneumococcal vaccination Allergies Active Allergy Reactions Criticality Noted Date Comments Oxycodone 10/11/2020 caused heart to stopped--per patient documented as of this encounter (statuses as of 08/30/2024) Medications ASPIRIN EC 81 MG PO TBEC Take 1 Tablet by mouth every evening. Active MULTI VITAMIN/MINERALS PO TABS Take 1 Tablet by mouth in the morning. Active PREVIDENT 5000 BOOSTER PLUS 1.1 % DT PSTE [place] onto teeth. Special tooth paste 5 Active [...] as of this encounter (statuses as of 08/30/2024) Active Problems Problem Noted Date Diagnosed Date [...] AM EDT): Regular today. Rate controlled. -continue Brisa Garveyquis Assessment & Plan (01/27/2023 10:32 AM EDT): Rate controlled -continue Brisaqupierre Coreg Assessment & Plan (12/10/2022 6:20 PM EDT): Regular today. -continue Mare Eliquis History of pulmonary embolism 10/21/2021 Assessment [...] as of this encounter (statuses as of 08/30/2024) Resolved Problems Problem Noted Date Diagnosed Date [...] as of this encounter (statuses as of 08/30/2024) Immunizations Name Administration Dates Next Due COVID-19 mRNA, LNP-s, No Pre serve, 2-Dose Series (Moderna) 07/17/2021,11/28/2020,11/01/2020 COVID-19, LNP-s, No Preserve , Cheng-sucrose, Ages 12+ (BrightLine) 05/13/2022 COVID-19, MRNA-LNP, PF, 30 M CG/0.3 mL, 12 YRS AND ABOVE, IM (Worksteady.io-Comirnat) 07/13/2023 Covid-19, Mrna, Lnp-s, Pf, B ivalent, 30 Mcg, IM, 12 yrs and above (Pfizer) 10/14/2022 Pneumococcal Conjugate Vacc, 13 Valent (Prevnar) 10/25/2015,05/12/2015 Pneumococcal Conjugate Vacci ne, 7 Valent 08/08/2012,08/28/2007 [...] Date Recorded PHQ Adult Total Score 0 08/30/2024 Hunger Vital Sign Answer Date Recorded Within the past 12 months, y ou worried that your food would run out before you got the money to buy more. Never true 08/02/20 24 Within the past 12 months, t he food you bought just didn't last and you didn't have money to get more. Never true 08/02/2024 Childcare Answer Date Recorded Do you feel overwhelmed with taking care of a child, family member or friend? No 08/02/2024 Does your family need help f inding childcare? (Household - for ages 0-17 years) Not on file 08/02/2024 Clothing Answer Date Recorded Have you been unable to get clothing when it was really needed? No 08/02/2024 Is your family able to get c lothes or diapers when needed? (Household - for ages 0-17 years) Not on file 08/02/2024 Personal Safety Answer Date Recorded Do you feel unsafe or have concerns for your saf ety? No 08/02/2024 Do you have concerns for you r family's safety? (Household - for ages 0-17 years) Not on file 08/02/2024 Utilities Answer Date Recorded Do you have trouble paying y our heating, water, or electric bill? No 08/02/2024 Is your family able to pay t he heat, water, or electric bill? (Household - for ages 0-17 years) Not on file 08/02/2024 Does your family have access to good internet? (Household - for ages 0-17 years) Not on file 08/02/2024 Employment Status Answer Date Recorded Are you unemployed or without regular income? No 08/02/2024 Does the household have a re gular source of income? (Household - for ages 0-17 years) Not on file 08/02/2024 Social Connections Answer Date Recorded How often do you feel lonely or isolated from th ose around you? Never 08/02/2024 Financial Resource Strain Answer Date R ecorded Do you have any trouble payi ng for your medications, or do you think you might in the future? No 08/02/2024 Does your family have troubl e paying for medicine? (Household - for ages 0-17 years) Not on file 08/02/2024 Transportation Needs Answer Date Record ed READ ONLY Do you have troubl e getting a ride to medical visits or work? Never True 08/02/2024 Does your family have a hard time getting a ride to doctors visits? (Household - for ages 0-17 years) Not on file 08/02/2024 Has lack of transportation k ept you from medical appointments, meetings, work, or from getting things needed for daily living? Check all that apply. No 08/02/2024 Do you (or your family) have trouble finding or paying for a ride (transportation)? (Household - for ages 0-17 years) Not on file 08/02/2024 Housing Stability Answer Date Recorded Do you currently live in a s helter or have no steady place to sleep at night? No 08/02/2024 READ ONLY Do you think you a re at risk of becoming homeless? No 08/02/2024 Does your family worry about paying for your home or becoming homeless? (Household - for ages 0-17 years) Not on file 1 10/02/2023 Are you homeless or worried that you might be in the future? No 08/02/2024 Are you (or your family) adelaida eless or worried that you might be in the future? (Household - for ages 0-17 years) Not on file Food Insecurity Answer Date Recorded Do you need food for this week? No 08/02/2024 Are you able to get enough f ood for your family? (Household - for ages 0-17 years) Not on file 08/02/2024 Does your family need food t his week? (Household - for ages 0-17 years) Not on file 08/02/2024 Do you always have enough fo od for your family? (Household - for ages 0-17 years) Not on file 08/02/2024 Sex and Gender Information Value Date Recorded Sex Assigned at Male 10/11/2019 9:33 AM EST Legal Sex Male 11:05 AM EDT Gender Identity Male 10/11/2019 9:33 AM EST Sexual Orientation Straight 10/11/2019 9: 33 AM EST documented as of this encounter Last Filed Vital Signs Vital Sign Reading Time Taken Comments Blood Pressure 118/62 08/30/2024 1:52 PM EST Pulse 95 08/30/2024 1:52 PM EST Temperature 36.8 C (98.3 F) 08/30/2024 1:52 PM ES T Respiratory Rate 14 08/30/2024 1:52 PM EST Oxygen Saturation 95% 08/30/2024 1:52 PM EST Inhaled Oxygen Concentration - - Weight 71.8 kg (158 lb 6.4 oz) 08/30/2024 1:52 P M EST Height 158.8 cm (5' 2.5") 08/30/2024 1:52 PM EST Body Mass Index 28.51 08/30/2024 1:52 PM EST documented in this encounter Patient Instructions * Patient Instructions* Tamy Harper LPN - 08/30/2024 1:55 PM EST Patient Instructions - Fall Prevention (This education is for all patients over 65 regardless of symptoms) Remember to take your current medications as prescribed. In order to prevent falls, you are encouraged to: Exercise Utilize assistive/adaptive devices Avoid multifocal lenses when walking Avoid hazards in home Maintain a regular toileting schedule Any questions please contact our office. Preventing Falls in the Home (This education is for all patients over 65 regardless of symptoms) As you get older, falls are more likely. Thats because your reaction time slows. Your muscles and joints may also get stiffer, making them less flexible. Illness, medications, and vision changes can also affect your balance. A fall could leave you unable to live on your own. To make your home safer, follow these tips: Floors Put nonskid pads under area rugs Remove throw rugs Replace worn floor coverings Tack carpets firmly to each step on carpeted stairs. Put nonskid strips on the edges of uncarpeted stairs Keep floors and stairs free of clutter and cords Arrange furniture so there are clear pathways Clean up any spills right away Bathrooms Install grab bars in the tub or shower Apply nonskid strips or put a nonskid rubber mat in the tub or shower Sit on a bath chair to bathe Use bathmats with nonskid backing Lighting Keep a flashlight in each room Put a nightlight along the pathway between the bedroom and the bathroom Cora Patient Education Copyright 2008 - 2010 Cora except where otherwise noted Preventing Falls: Exercises to Improve Balance, Flexibility, Strength, and Staying Power (This education is for all patients over 65 regardless of symptoms) Certain types of exercises may help make you less likely to fall. Try the ones below. Or do other exercises that your healthcare provider suggests. Depending on your health, you may need to start slowly. Dont let that stop you. Even small amounts of exercise can help you. Be sure to talk to yourhealthcare provider before starting any exercise program. Improve Balance Many types of exercise can help improve balance. Jaime chi and yoga are good examples. Heres another one to try. You can do it anytime and almost anywhere. Stand next to a counter or solid support. Push yourself up onto your tiptoes. Hold for 5 seconds. If you start to lose your balance, hold on to the counter. Rest and repeat 5 times. Work up to holding for 20 to 30 seconds, if you can. Increase Flexibility Being more flexible makes it easier for you to move around safely. Try exercises like the seated hamstring stretch. Sit in a chair and put one foot on a stool. Straighten your leg and reach with both hands down either side of your leg. Reach as far down your leg as you can. Hold for about 20 seconds. Go back to the starting position. Then repeat 5 times. Switch legs. Build Strength Resistance exercises help build strength. You can do them without equipment. Or you can use weights, elastic bands, or special machines. One such exercise is called the biceps curl. You can hold a 1 pound weight or even a can of soup. Do this exercise at least 3 times a week. Strive for everyday. Sit up straight in a chair. Keep your elbow close to your body and your wrist straight. Bend your arm, moving your hand up to your shoulder. Then slowly lower your arm. Repeat 5 times. Switch to the other arm. Build Your Staying Power Aerobic exercises make your heart and lungs stronger so you can keep moving longer. Walking and swimming are two of the best types of exercises you can do. Using a stationary bike is great, too. Find an aerobic exercise that you enjoy. Start slowly and build up. Even 5 minutes is helpful. Aimfor a goal of 30 minutes, at least 3 times a week. You dont have to do 30 minutes in one session. Break it up and walk a little throughout the day. More Helpful Tips Start easy. Slowly work up to doing more. Talk with your healthcare provider about the best exercises for you. Call senior centers or health clubs about exercise programs. If needed, have a family member watch you walk every so often to check your stability. Exercise with a friend. Choose an activity you both enjoy. Try exercises that you can do anytime, anywhere. Here are two examples. Have someone with you when you first try these: Practice walking by placing one foot right in front of the other. Stand up and sit down 10 times. Repeat this throughout the day. Cora Patient Education Copyright 2008 - 2010 Cora except where otherwise noted. Preventing Falls: Moving Safely Using a Cane or Walker (This education is for all patients over 65 regardless of symptoms) Keep the cane away from your feet so you dont trip. A walking aid, such as a cane or walker, can help you stay more independent and avoid falls. Remember to keep your walking aid within easy reach when youre in a chair or in bed. And learn how to use it safely so you dont injure yourself. Using a Cane If you have a stronger side, hold the cane on that side. Get your balance. Move the cane and your weaker leg forward. Support your weight on both the cane and your weaker side. Step with your stronger leg. Start again from step 1. If youre using a folding walker, be sure you know how to lock it open. Check that its locked open before each use. Using a Walker Roll the walker (or lift it, if youre using one without wheels) forward about 12 inches. Step forward with your weaker leg first. Use the walker to help keep your balance. Bring your other foot forward to the center of the walker. Start again from step 1. Helpful Tips Check with your healthcare provider about the right walking aid to use. Ask about a walker with a seat attached. Check the tips of your cane or walker to make sure they have nonskid covers. Move slowly from room to room. Dont ramírez. Sit down to get dressed. Use a ale pack or backpack to keep your hands free. Get help for jobs that mean climbing, even on a stepstool. Cora Patient Education Copyright 2008 - 2010 Cora except where otherwise noted. Treating Urinary Incontinence in Men (This education is for all patients over 65 regardless of symptoms) You can't always control the release of urine. You may leak urine. Or you may not be able to hold your urine until you can get to a bathroom. This is called urinary incontinence. The problem can be managed. Talk to your doctor about your treatment options. Taking Medications Prescription medications may help you. They may: Help the sphincter to work better. (This is the muscle that closes to keep urine from leaking out of the bladder.) Help stop the bladder from corrina too often to push urine out. Help the bladder muscles contract with more force. Help relax the sphincter muscle and allow urine to flow more freely. Making Changes to Your Routine Certain changes in your daily routine may help. These include: Avoiding caffeine and alcohol. Using timed voiding. This is following a schedule for drinking fluids and urinating. Doing Kegel exercises daily. These exercises involve tightening the muscles in your sphincter and around your bladder to help strengthen them. Your doctor can explain how to do them. Using a Catheter A catheter is a narrow tube that is inserted through the urethra into the bladder. It drains urine.A condom catheter covers the penis. It channels urine into a collection bag. It is worn most of thetime. Intermittent catheterization means inserting a catheter to drain the bladder, then removing it. This is done on a regular schedule. Having Surgery If other options don't work, surgery may be recommended. If surgery is an option, your healthcare provider can discuss it with you and explain its risks and benefits. Healing After Prostate Surgery Surgery on the prostate gland can cause incontinence. Most often, the incontinence is only for a short time. It clears up when healing is complete. Very rarely, prostate surgery can result in permanent incontinence. documented in this encounter Progress Notes * Ranulfo Schumacher, - 08/30/2024 2:49 PM EST SUBJECTIVE: Mor French is a 84 year old male. Chief Complaint Patient presents with Follow Up HPI: Patient is an 84 year old male with a history of Atrial Fibrillation, COPD, GERD, Mixed Dementia, bilateral Carpal Tunnel Syndrome, Lumbar DDD, Prostate Cancer treated with Prostatectomy, Lung Cancertreated with right middle lobectomy, bilateral Pulmonary Emboli, right Pontine CVA, left Internal Capsule / Thalamic CVA, and right MCA Stenosis that is seen for follow up. The patient has shortness of breath with exertion for the last few months. He has been walking slower due to the shortness of breath. No chest pain is present. Weight is stable and appetite is good. Memory loss continues to worsen slowly per his son. He is at the visit today with his son. 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 MULTI VITAMIN/MINERALS PO TABS Take 1 Tablet by mouth in the morning. Tylenol 325 MG Oral Capsule (Acetaminophen) Take 650 mg by mouth every 6 hours as needed for Pain, Moderate. Ondansetron HCl 4 MG Oral Tablet Take by mouth 1 Tablet every 8 hours as needed for Nausea. 30 Tablet 0 Magnesium Oxide 400 (240 Mg) MG Oral Tablet Take 1 Tablet by mouth at bedtime. Albuterol Sulfate HFA 108 (90 Base) MCG/ACT Inhalation Aerosol Solution Inhale 2 Puffs by mouth every 6 hours as needed. Citalopram Hydrobromide 20 MG Oral Tablet (CeleXA) TAKE ONE TABLET BY MOUTH DAILY IN THE MORNING. 100 Tablet 3 HYDROcodone-Acetaminophen 5-325 MG Oral Tablet Take 1 Tablet by mouth every 6 hours as needed for Pain, Mild. 45 Tablet 0 Atorvastatin Calcium 40 MG Oral Tablet (Lipitor) TAKE ONE TABLET BY MOUTH EVERY DAY 100 Tablet 3 Apixaban 5 MG Oral Tablet (Eliquis) TAKE ONE TABLET BY MOUTH IN THE MORNING AND TAKE ONE TABLET BY MOUTH BEFORE BEDTIME 200 Tablet 3 Gabapentin 100 MG Oral Capsule (Neurontin) TAKE ONE CAPSULE BY MOUTH TWICE A DAY -- IN THE MORNING AND IN THE EVENING 200 Capsule 3 Meclizine HCl 12.5 MG Oral Tablet (Antivert) take one tablet by mouth twice daily 200 Tablet 1 Pantoprazole Sodium 40 MG Oral Tablet Delayed Release (Protonix) TAKE ONE TABLET BY MOUTH IN THE MORNING 90 Tablet 1 Benzonatate 100 MG Oral Capsule Take 1 Capsule by mouth 3 times a day as needed for Cough. 30 Capsule 0 Carvedilol 6.25 MG Oral Tablet (Coreg) TAKE ONE TABLET BY MOUTH EVERY MORNING 100 Tablet 3 PREVIDENT 5000 BOOSTER PLUS 1.1 % DT PSTE [place] onto teeth. Special tooth paste Diclofenac Sodium 1 % External Gel (Voltaren) Apply topically to affected area 4 g in the morning AND 4 g before bedtime. Apply to bilateral hand two times a day. 350 g 3 Lidocaine 4 % External Patch Place 1 Patch topically on the skin daily. Rollator Ultra-Light Use daily for adl's and to prevent falls. 1 Each 0 No current facility-administered medications for this visit. The patient's medication list was reviewed and updated as needed. Past Medical History: Diagnosis Date Asthma, moderate persistent 05/16/2013 Carpal tunnel syndrome of left wrist 12/2018 Carpal tunnel syndrome of right wrist s/p surgery 09/2011 Dyslipidemia, goal LDL below 130 05/16/2013 GERD (gastroesophageal reflux disease) 05/16/2013 HTN, goal below 140/90 05/16/2013 Ischemic stroke (HCC) 08/20/2020 Ischemic stroke (HCC) 10/04/2020 Lumbar degenerative disc disease 10/21/2021 Middle cerebral artery stenosis, right 08/29/2020 Migraine 05/16/2013 Mixed Alzheimer's and vascular dementia (HCC) 05/26/2022 Prostate cancer (HCC) 05/16/2013 s/p prostatectomy 11/2003 Small cell lung cancer (HCC) 05/16/2013 Past Surgical History: Procedure Laterality Date CARPAL TUNNEL SURGERY bilateral COLONOSCOPY, DIAGNOSTIC (RECTUM) 07/11/2013 COLONOSCOPY FLEXIBLE PROXIMAL DIAGNOSTIC performed by Alexander Langford MD at [facility]COPY [facility] EGD, FLEXIBLE, DIAGNOSTIC 08/01/2013 UPPER GI ENDOSCOPY DIAGNOSTIC performed by Alexander Langford MD at ENDOSCOPY [facility] INJECT DX/THER SUBSTANCE INTERLAMINAR CERVICAL/THORACIC W IMAGE GUIDE 08/15/2019 INJECTION SPINE LUMBAR CERVICAL OR THORACIC performed by Cachorro Navarrete, DO at OR [facility] INJECT DX/THER SUBSTANCE INTERLAMINAR LUMBAR/SACRAL W IMAGE GUIDE 10/31/2021 INJECTION SPINE LUMBAR OR SACRAL performed by Cachorro Navarrete, DO at OR [facility] INJECT DX/THER SUBSTANCE INTERLAMINAR LUMBAR/SACRAL W IMAGE GUIDE 06/04/2022 INJECTION SPINE LUMBAR OR SACRAL performed by Cachorro Navarrete, DO at OR [facility] INJECT DX/THER SUBSTANCE INTERLAMINAR LUMBAR/SACRAL W IMAGE GUIDE 10/08/2022 INJECTION SPINE LUMBAR OR SACRAL performed by Cachorro Navarrete, DO at OR [facility] INJECT DX/THER SUBSTANCE INTERLAMINAR LUMBAR/SACRAL W IMAGE GUIDE 05/06/2023 INJECTION SPINE LUMBAR OR SACRAL performed by Cachorro Navarrete, DO at OR [facility] INJECT DX/THER SUBSTANCE INTERLAMINAR LUMBAR/SACRAL W IMAGE GUIDE 11/23/2023 INJECTION SPINE LUMBAR OR SACRAL performed by John Ferrer, DO at OR [facility] INJECT DX/THER SUBSTANCE INTERLAMINAR LUMBAR/SACRAL W IMAGE GUIDE 05/11/2024 INJECTION SPINE LUMBAR OR SACRAL performed by John Ferrer, DO at OR [facility] LAMINECTOMY/LAMINOTOMY, LUMBAR, GUIDE 1997 and 10/1982 MA UNLISTED PROCEDURE SPINE T12/L1 in 05/1998, L3-L5 in 10/1982 RADICAL PROSTATE REMOVAL 11/2003 RECONSTRUCT/REPLACE SHOULDER JOINT Left 06/18/2020 REMOVAL OF APPENDIX 1972 REPAIR INITIAL INGUINAL HERNIA REDUCIBLE AGE 5 OR MORE Right 12/28/2017 12/28/2017 REPAIR INITIAL INGUINAL HERNIA REDUCIBLE AGE 5 OR MORE performed by Jorge Luis Krause MD at OR [facility] SINGLE LOBECTOMY, LUNG 1998 right middle lobe Review of patient's allergies indicates: Allergen Reactions Oxycodone caused heart to stopped--per patient Review of Systems Constitutional: Positive for fatigue. Negative for appetite change, chills, fever and unexpected weight change. HENT: Negative for congestion, sore throat and trouble swallowing. Respiratory: Positive for shortness of breath. Negative for cough and wheezing. Cardiovascular: Negative for chest pain, palpitations and leg swelling. Gastrointestinal: Negative for abdominal pain, blood in stool, constipation, diarrhea, nausea and vomiting. Genitourinary: Negative for dysuria, frequency and hematuria. Musculoskeletal: Positive for back pain and gait problem. Neurological: Negative for dizziness, syncope and headaches. Psychiatric/Behavioral: Positive for confusion, decreased concentration and sleep disturbance. OBJECTIVE: BP 118/62 | Pulse 95 | Temp 98.3 F (36.8 C) | Resp 14 | Ht 5' 2.5" (1.588 m) | Wt 158 lb 6.4 oz(71.8 kg) | SpO2 95% | BMI 28.51 kg/m | BSA 1.78 m Physical Exam Vitals and nursing note reviewed. Constitutional: General: He is not in acute distress. Appearance: Normal appearance. He is not toxic-appearing. HENT: Head: Normocephalic and atraumatic. Cardiovascular: Rate and Rhythm: Normal rate and regular rhythm. Heart sounds: Normal heart sounds. No murmur heard. No gallop. Pulmonary: Effort: Pulmonary effort is normal. Breath sounds: Normal breath sounds. No wheezing, rhonchi or rales. Abdominal: General: Bowel sounds are normal. There is no distension. Palpations: Abdomen is soft. Tenderness: There is no abdominal tenderness. Musculoskeletal: Right lower leg: No edema. Left lower leg: No edema. Neurological: Mental Status: Mental status is at baseline. Motor: No weakness. Gait: Gait abnormal. Psychiatric: Mood and Affect: Mood normal. Behavior: Behavior normal. Thought Content: Thought content normal. ECG: NSR, normal ecg independently reviewed at visit. CXR: NAD PLAN AND ASSESSMENT: Shortness of breath (Primary) - EKG; Future; Expected date: 08/30/2024 - XR CHEST 2 VIEWS - CBC WITH WBC DIFFERENTIAL; Future; Expected date: 08/30/2024 - COMPREHENSIVE METABOLIC PANEL; Future; Expected date: 08/30/2024 - EKG - CBC WITH WBC DIFFERENTIAL - COMPREHENSIVE METABOLIC PANEL - ECHO, COMPLETE (2D), TRANS-THORACIC; Future; Expected date: 08/30/2024 Mixed Alzheimer's and vascular dementia (HCC) Memory loss continues to worsen slowly Hypertensive kidney disease with stage 3a chronic kidney disease (HCC) - PHOSPHORUS; Future; Expected date: 08/30/2024 - COMPREHENSIVE METABOLIC PANEL; Future; Expected date: 08/30/2024 - PHOSPHORUS - COMPREHENSIVE METABOLIC PANEL Continue Carvedilol Pure hypercholesterolemia Continue Atorvastatin History of lung cancer Treated surgically STACEY (generalized anxiety disorder) Gastroesophageal reflux disease without esophagitis Continue Pantoprazole PAF (paroxysmal atrial fibrillation) (HCC) Continue Apixaban, and Carvedilol History of pulmonary embolism Degeneration of intervertebral disc of lumbar region with discogenic back pain Continue Gabapentin History of prostate cancer Treated with Prostatectomy Risk and functional assessment Need for pneumococcal vaccination - PNEUMOCOCCAL VACC, PCV20, IM ([id number]) Follow Up: Return in about 3 months (around 11/28/2024), or if symptoms worsen or fail to improve. I spent a total of 40-54 minutes (exact time 42 mins) on the date of service in preparation, delivery, and documentation of the care provided to Mor French excluding any time spent in the performance of separately billed services or time spent by another provider/QHP. Ranulfo Schumacher DO 2:51 PM 08/30/2024 documented in this encounter Procedure Notes * Rene Fraga DO - 08/30/2024 2:29 PM ESTAssociated Order(s): EKG REASON FOR STUDY: Shortness of breath;Shortness of breath CONCLUSIONS: Normal sinus rhythm Normal ECG When compared with ECG of 04-Jul-2020 11:41, Criteria for Septal infarct are no longer Present Ventricular Rate: 75 Atrial Rate: 75 MA Interval: 160 QRS Duration: 74 QT/QTc: 402/448 ms P-R-T [place]: 19 : -13 : -11 degrees documented in this encounter Plan of Treatment Upcoming Encounters Date Type Department Care Team (Latest Contact Info) Description 09/22/2024 4:00 PM EST Cardiac Studies Cardiac Studies, [facility] [address] [place] [id number] 09/27/2024 1:45 PM EST Hospital Encounter OR [facility], Operating Room [facility] [address] [place] [phone] John Ferrer, DO [address] [place] [phone] 09/27/2024 1:45 PM EST - 09/27/2024 2:10 PM EST Surgery OR [facility], Operating Room [facility] [address] [place] [phone] John Ferrer, DO [address] [place] [address] INJECTION SPINE LUMBAR OR SACRAL 11/28/2024 2:20 PM EST Office Visit Family Practice [address] [place] [address] [address] [place] [address] Ranulfo Schumacher, 293 [facility] [address] Pending Results Name Type Priority Associated Diagnoses Date/Time PHOSPHORUS Lab Routine Hypertensive kidney disease with stage 3a chronic kidney disease (HCC) 08/30/2024 2:49 PM EST XR CHEST 2 VIEWS Medical Imaging Routine Shortness of breath 08/30/2024 2:44 PM EST CBC WITH WBC DIFFERENTIAL Lab Routine Shortness of breath 08/30/2024 2:49 PM EST COMPREHENSIVE METABOLIC PANEL Lab Routine Shortness of breath Hypertensive kidney disease with stage 3a chronic kidney disease (HCC) 08/30/2024 2:49 PM EST CBC Lab Routine Shortness of breath 08/30/2024 2:49 PM EST DIFFERENTIAL, AUTOMATED Lab Routine Shortness of breath 08/30/2024 2:49 PM EST Scheduled Orders Name Type Priority Associated Diagnoses Orde r Schedule PHOSPHORUS Lab Routine Hypertensive kidney disease with stage 3a chronic kidney disease (HCC) Expected: 08/30/2024, Expires: 08/30/2025 CBC WITH WBC DIFFERENTIAL Lab Routine Shortness of breath Expected: 08/30/2024 (Approximate), Expires: 08/30/2025 COMPREHENSIVE METABOLIC PANEL Lab Routine Shortness of breath Hypertensive kidney disease with stage 3a chronic kidney disease (HCC) Expected: 08/30/2024 (Approximate), Expires: 08/30/2025 ECHO, COMPLETE (2D), TRANS-THORACIC Echocardiology Routine Shortness of breath Expected: 08/30/2024, Expires: 09/30/2026 Scheduled Procedures Name Priority Associated Diagnoses Date/Ti me INJECTION SPINE LUMBAR OR SACRAL Lumbar radiculopathy 09/27/2024 1:45 PM EST Health Maintenance Due Date Last Done Comments COVID-19 Vaccine ( season) 2024 07/13/2023, 10/14/2022, 05/13/2022, Additional history exists Adult Wellness Visit 09/10/2024 09/10/2023, 05/31/20 21 CKD PHOS USE SMARTSET 16328 09/22/202408/29, 09/12/2022, 05/26/2022, Additional history exists Albumin/Creatinine Ratio 01/10/2025 024, 03/27/2023, 05/26/2022, Additional history exists CKD HGB USE SMARTSET 06520 03/18/202503/18, 03/18/2024, 03/27/2023, Additional history exists Depression Screening 08/30/2025 08/30/2024 DTap/Tdap Vaccines (3 - Td or Tdap) 06/26/2033 06/26/2023, 05/16/2013 Pneumococcal Vaccine: 65+ Years Completed 05/20/2017, 10/25/2015, 05/12/2015 Zoster Vaccines Completed 08/19/2019, 05/30, 06/28/2007 Influenza Vaccine (FLU shot) Completed 11/2023, 06/16/2023, 06/18/2022, Additional history exists HPV (Gardasil) Vaccine Aged Out No lo nger eligible based on patient's age to complete this topic Hepatitis B Vaccine Aged Out No longe r eligible based on patient's age to complete this topic MENINGOCOCCAL (MENACTRA/MENVEO) Aged Out No longer eligible based on patient's age to complete this topic documented as of this encounter Medical Devices Implanted Type Area Bottom Saw Operator Device Identifier Shelf Expiration Date Model / Serial / Lot Plug Mesh Small Hernia - [id number] Implanted:Qty: 1 on 12/28/2017 by Jorge Luis Krause MD at OR [facility] Right: Groin CR BARD : DAVOL 02/25/2019 [id number] / / [id number] documented as of this encounter Procedures Procedure Name Priority Date/Time Associated Diagnosis Comments MA ECG ROUTINE ECG W/LEAST 12 LDS I&R ONLY Routine 08/30/2024 2:29 PM EST Shortness of breath documented in this encounter Results * EKG (08/30/2024 2:29 PM EST) 08/30/2024 2:29 PM EST Narrative Procedure Note Rene Fraga DO - 08/30/2024 2:29 PM EST REASON FOR STUDY: Shortness of breath;Shortness of breath CONCLUSIONS: Normal sinus rhythm Normal ECG When compared with ECG of 04-Jul-2020 11:41, Criteria for Septal infarct are no longer Present Ventricular Rate: 75 Atrial Rate: 75 MA Interval: 160 QRS Duration: 74 QT/QTc: 402/448 ms P-R-T [place]: 19 : -13 : -11 degrees Ranulfo Schumacher DO EKG Final Result [facility] documented in this encounter Visit Diagnoses Diagnosis Advanced care [...] of pulmonary embolism Vertigo Dizziness and giddiness Shortness of breath- Primary Mixed Alzheimer's and vascular dementia (HCC) Alzheimer's disease Hypertensive kidney disease with stage 3a chronic kidney disease (HCC) Pure hypercholesterolemia History of lung cancer Personal history of malignant neoplasm of bronchus and lung STACEY (generalized anxiety disorder) Generalized anxiety disorder Gastroesophageal reflux disease without esophagitis Esophageal reflux PAF (paroxysmal atrial fibrillation) (HCC) Atrial fibrillation History of pulmonary embolism Personal history of pulmonary embolism Degeneration of intervertebral disc of lumbar region with discogenic back pain History of prostate cancer Personal history of malignant neoplasm of prostate Risk and functional assessment Screening for unspecified condition Need for pneumococcal vaccination Need for prophylactic vaccination against streptococcus pneumoniae (pneumococcus) Lumbar radiculopathy Thoracic or lumbosacral neuritis or radiculitis, unspecified documented in this encounter Advance Directives Documents on File Type Date Recorded Patient Phlebotomy Services Technician Expl anation Advance Directives and Living Will 01/02/2023 ADVANCE DIRECTIVE / LIVING WILL Power of Object Oriented Developer 01/02/2023 POWER OF A TTORNEY Advance Directives and Living Will 11/27/2014 ADVANCE DIRECTIVE / LIVING WILL Power of Object Oriented Developer 11/27/2014 POWER OF A TTORNEY Healthcare Agents on File Name Relationship Healthcare Agent Relationshi p Communication Mukul Gillian Adult Child Health Care Agen t (per Health Care Power of Object Oriented Developer document) Care Teams Crop Puller Relationship Specialty Start Date End Date Ranulfo Schumacher DO [address] [place] [address] PCP - General Internal Medicine 03/11/24 documented as of this encounter
--- OUTSIDE RECORDS SUMMARY | 2024-10-13 02:15 | External Medical Summary | Summary of Care ---
Author Name Unknown Organization [facility] Address [address] [place] [address] Phone [phone] Care Team Providers Care Tunnel Kiln Repairer Name Role Phone Ranulfo Schumacher DO Primary Care Provider [phone] Reason for Visit * Reason Onset Date Comments Test Results 09/26/2024 Encounter Details Date Type Department Care Team (Late st Contact Info) Description 09/26/2024 Telephone Family Practice [address] [facility] [address] [place] [address] Ranulfo Schumacher DO [address] [place] [address] Test Results Allergies Active Allergy Reactions Criticality Noted Date Comments Oxycodone 10/11/2020 caused heart to stopped--per patient documented as of this encounter (statuses as of 09/26/2024) Medications ASPIRIN EC 81 MG PO TBEC Take 1 Tablet by mouth every evening. Active MULTI VITAMIN/MINERALS PO TABS Take 1 Tablet by mouth in the morning. Active PREVIDENT 5000 BOOSTER PLUS 1.1 % DT PSTE [place] onto teeth. Special tooth paste 5 Active [...] as of this encounter (statuses as of 09/26/2024) Active Problems Problem Noted Date Diagnosed Date [...] as of this encounter (statuses as of 09/26/2024) Resolved Problems Problem Noted Date Diagnosed Date [...] as of this encounter (statuses as of 09/26/2024) Immunizations Name Administration Dates Next Due COVID-19 [...] (Prevnar) 10/25/2015,05/12/2015 Pneumococcal Conjugate Vacci ne, 20-valent ([id number]) 09/07/2024 Pneumococcal Conjugate Vacci ne, 7 Valent [...] 08/31/2024 Does the household have a re lar source of income? (Household - for ages [...] encounter Miscellaneous Notes * Telephone Encounter - Ranulfo Schumacher DO - 09/26/2024 10:52 AM EST No other intervention needed at this time. * Telephone Encounter - Bethany Mcdaniel CCMA - 09/26/2024 10:38 AM EST Spoke with son Mukul and made him aware of the results. States that pt is not having anymore dizziness. * Telephone Encounter - Bethany Mcdaniel CCMA - 09/26/2024 10:35 AM EST ----- Message from Ranulfo Schumacher DO sent at 09/23/2024 7:24 PM EST ----- Echo is good. See if dizziness is still present. documented in this encounter Plan of Treatment Upcoming Encounters Date Type Department Care Team (Latest Contact Info) Description 09/27/2024 1:45 PM EST Hospital Encounter OR [facility], Operating Room [facility] [address] [place] [phone] John Ferrer DO [address] [place] [phone] 09/27/2024 1:45 PM EST - 09/27/2024 2:10 PM EST Surgery OR [facility], Operating Room [facility] [address] [place] [phone] John Ferrer DO [address] [place] [phone] INJECTION SPINE LUMBAR OR SACRAL 11/28/2024 2:20 PM EST Office Visit Family Practice [address] [place] [address] [address] [facility], [place] [address] Ranulfo Schumacher DO 293 [facility], [place] [address] Scheduled Procedures Name Priority Associated Diagnoses Date/Ti me INJECTION SPINE LUMBAR OR SACRAL Lumbar radiculopathy 09/27/2024 1:45 PM EST Health Maintenance Due Date Last Done Comments Adult Wellness Visit 09/10/2024 09/10/2023, 05/31/20 21 Albumin/Creatinine Ratio 01/10/2025 024, 03/27/2023, 05/26/2022, Additional history exists CKD HGB USE SMARTSET 87646 08/30/202508/30, 08/30/2024, 03/18/2024, Additional history exists CKD PHOS USE SMARTSET 09496 08/30/202511/2023, 09/22/2023, 09/12/2022, Additional history exists Depression [...] this encounter Medical Devices Implanted Type Area Rn Wellness Device Identifier Shelf Expiration Date Model / Serial / Lot Plug Mesh Small Hernia - [id number] Implanted:Qty: 1 on 12/28/2017 by Jorge Luis Krause MD at OR [facility] Right: Groin CR BARD : DAVOL 02/25/2019 [id number] / / [id number] documented as of this encounter Advance Directives Documents on File Type Date Recorded Patient 3Rd Mate Expl anation Advance Directives and Living Will 01/02/2023 ADVANCE DIRECTIVE / LIVING WILL Power of Hvac Manager 01/02/2023 POWER OF A TTORNEY Advance Directives and Living Will 11/27/2014 ADVANCE DIRECTIVE / LIVING WILL Power of Hvac Manager 11/27/2014 POWER OF A TTORNEY Healthcare Agents on File Name Relationship Healthcare Agent [facility] p Communication Mukul Gillian Adult Child Health Care Taylorn t (per Health Care Power of Hvac Manager document) Care Teams Tunnel Kiln Repairer Relationship Specialty Start Date End Date Ranulfo Schumacher DO [address] [place] [facility] [place] [address] PCP - General Internal Medicine 03/11/24 documented as of this encounter
--- OUTSIDE RECORDS SUMMARY | 2024-10-13 02:15 | External Medical Summary ---
Author Name Unknown Address Unknown Organization [id number]:LABORATORY [facility] [place] - [address] [place] [address] Laboratory Report Ordering Provider Test Date Status JUDSON NASH 08/30/2024 14:49:16 Final Observation Date Value Abnormality Reference (Units ) Status Phosphate 08/30/2024 14:49:16 3.2 2.5-4.8 (m g/dL) Final Performing Location LAB[facility]ATORY [facility] - [address] [facility] [address]
--- OUTSIDE RECORDS SUMMARY | 2024-10-13 02:15 | External Medical Summary ---
Author Name Unknown Address Unknown Organization [id number]:[place] [place] [address] [facility] [address] Laboratory Report Ordering Provider Test Date Status JUDSON NASH 08/30/2024 14:49:16 Final Observation Date Value Abnormality Reference (Units ) Status BUN 08/30/2024 14:49:16 21 Above high normal 6-20 (mg/dL) Final Creatinine 08/30/2024 14:49:16 1.3 Above high normal 0.6-1.2 (mg/dL) Final Glomerular filtration rate/1.73 sq M.predicted [Volume Rate/Area] in Serum, Plasma or Blood by Creatinine-based formula (CKD-EPI) 08/30/2024 14:49:16 54 Below low normal >=60 (mL/min) Final eGFR is calculated based on the CKD-EPI 2020 equation. Sodium 08/30/2024 14:49:16 139 135-146 (m mol/L) Final Potassium 08/30/2024 14:49:16 4.8 3.5-5.1 (m mol/L) Final Cl 08/30/2024 14:49:16 103 98-107 (mm ol/L) Final CO2 08/30/2024 14:49:16 25 22-32 (mmo l/L) Final Anion gap 08/30/2024 14:49:16 11 7-15 (mmol /L) Final Glucose 08/30/2024 14:49:16 87 70-120 (mg /dL) Final Albumin 08/30/2024 14:49:16 4.1 3.8-5.0 (g /dL) Final AST (Aspartate aminotransferase) 08/30/2024 14:49:16 17 10-50 (U/L) Fin al Alk Phos 08/30/2024 14:49:16 113 35-130 (U/ L) Final Bilirubin, Total 08/30/2024 14:49:16 0.5 <=1 .2 (mg/dL) Final Calcium 08/30/2024 14:49:16 9.5 8.4-10.2 ( mg/dL) Final Protein 08/30/2024 14:49:16 6.6 6.0-8.3 (g /dL) Final ALT (Alanine aminotransferase) 08/30/2024 14:49:16 9 Below low normal 10-50 (U/L) Final Performing Location [facility] [place] - [address] [facility] [address]
--- OUTSIDE RECORDS SUMMARY | 2024-10-13 02:15 | External Medical Summary ---
Author Name Unknown Address Unknown Organization [id number][place] [place] [facility] [address] [facility] [address] Laboratory Report Ordering Provider Test Date Status JUDSON NASH 08/30/2024 14:49:16 Final Observation Date Value Abnormality Reference (Units ) Status WBC, Total 08/30/2024 14:49:16 7.42 4.00-10.80 (K/uL) Final RBC 08/30/2024 14:49:16 4.70 4.50-5.25 (M/uL) Final Hemoglobin 08/30/2024 14:49:16 12.4 Below low normal 14.0-16.8 (g/dL) Final HCT 08/30/2024 14:49:16 40.3 40.0-48.4 (%) Final MCV 08/30/2024 14:49:16 85.7 82.0-99.5 (fL) Final MCH 08/30/2024 14:49:16 26.4 27.0-34.0 (pg) Final MCHC 08/30/2024 14:49:16 30.8 32.0-36.0 (g/dL) Final RDW 08/30/2024 14:49:16 14.8 11.5-15.5 (%) Final Platelets 08/30/2024 14:49:16 283 140-400 (K/uL) Final MPV 08/30/2024 14:49:16 9.8 6.6-11.1 (fL) Final Nucleated erythrocytes/100 leukocytes [Ratio] in Blood by Automated count 08/30/2024 14:49:16 0 <=0 (/100 WBCs) Final Performing Location [facility] [place] [address] [facility] [address]
--- OUTSIDE RECORDS SUMMARY | 2024-10-13 02:15 | External Medical Summary | Summary of Care ---
Author Name Unknown Organization [facility] Address [address] [place] [address] Phone [phone] Care Team Providers Care Principle Software Engineer Name Role Phone Charity Schumacher DO Primary Care Provider [phone] Reason for Visit * Reason Comments Medication Refill Encounter Details Date Type Department Care Team (Late st Contact Info) Description 06/23/2024 Refill Family Practice [address] [place] [address] [place] [address] Charity Schumacher DO [address] [place] [address] HTN, goal below 140/90 Allergies Active Allergy Reactions Criticality Noted Date Comments Oxycodone 10/11/2020 caused heart to stopped--per patient documented as of this encounter (statuses as of 06/24/2024) Medications Medication Sig Dispensed Refills Start Date End Date Status ASPIRIN EC 81 MG PO TBEC Take 1 Tablet by mouth every evening. Active MULTI VITAMIN/MINERALS PO TABS Take 1 Tablet by mouth in the morning. Active PREVIDENT 5000 BOOSTER PLUS 1.1 % DT PSTE [place] onto teeth. Special tooth paste 09/28/2014 Active Tylenol 325 MG Oral Capsule (Acetaminophen) Take 650 mg by mouth every 6 hours as needed for Pain, Moderate. Active Diclofenac Sodium 1 % External Gel (Voltaren)Indicati ons:Bilateral hand pain Apply topically to affected area 4 g in the morning AND 4 g before bedtime. Apply to bilateral hand two times a day. 350 g 3 12/26/2021 Active Ondansetron HCl 4 MG Oral Tablet Take by mouth 1 Tablet every 8 hours as needed for Nausea. 30 Tablet 05/14/2022 Active Magnesium Oxide 400 (240 Mg) MG Oral Tablet Take 1 Tablet by mouth at bedtime. Active Lidocaine 4 % External Patch Place 1 Patch topically on the skin daily. Active Albuterol Sulfate HFA 108 (90 Base) MCG/ACT Inhalation Aerosol Solution Inhale 2 Puffs by mouth every 6 hours as needed. Active Citalopram Hydrobromide 20 MG Oral Tablet (CeleXA)Indication s:Anxiety TAKE ONE TABLET BY MOUTH DAILY IN THE MORNING. 100 Tablet 3 09/10/2023 4 Active HYDROcodone-Acetam inophen 5-325 MG Oral TabletIndications: Lumbar degenerative disc disease Take 1 Tablet by mouth every 6 hours as needed for Pain, Mild. 45 Tablet 09/10/2023 Active Atorvastatin Calcium 40 MG Oral Tablet (Lipitor)Indicatio ns:Dyslipidemia, goal LDL below 130 TAKE ONE TABLET BY MOUTH EVERY DAY 100 Tablet 3 09/11/2023 4 Active Apixaban 5 MG Oral Tablet (Eliquis)Indicatio ns:PAF (paroxysmal atrial fibrillation) (HCC),History of pulmonary embolism TAKE ONE TABLET BY MOUTH IN THE MORNING AND TAKE ONE TABLET BY MOUTH BEFORE BEDTIME 200 Tablet 3 11/14/2023 5 Active Gabapentin 100 MG Oral Capsule (Neurontin)Indicat ions:Lumbar degenerative disc disease TAKE ONE CAPSULE BY MOUTH TWICE A DAY -- IN THE MORNING AND IN THE EVENING 200 Capsule 3 01/08/2024 5 Active Meclizine HCl 12.5 MG Oral Tablet (Antivert)Indicati ons:Vertigo take one tablet by mouth twice daily 200 Tablet 1 04/25/2024 Active Pantoprazole Sodium 40 MG Oral Tablet Delayed Release (Protonix)Indicati ons:Gastroesophage al reflux disease without esophagitis TAKE ONE TABLET BY MOUTH IN THE MORNING 90 Tablet 1 05/17/2024 5 Active Benzonatate 100 MG Oral CapsuleIndications :Acute bronchitis due to COVID-19 virus Take 1 Capsule by mouth 3 times a day as needed for Cough. 30 Capsule 05/31/2024 Active Rollator Ultra-LightIndicat ions:Lumbar degenerative disc disease,Degenerati ve disc disease, cervical,Gait disturbance,At risk for falls,Abnormality of gait due to impairment of balance Use daily for adl's and to prevent falls. 1 Each 06/09/2024 Active Carvedilol 6.25 MG Oral Tablet (Coreg)Indications :HTN, goal below 140/90 TAKE ONE TABLET BY MOUTH EVERY MORNING 100 Tablet 3 06/24/2024 5 Active Carvedilol 6.25 MG Oral Tablet (Coreg)Indications :HTN, goal below 140/90 TAKE ONE TABLET BY MOUTH EVERY MORNING 100 Tablet 3 01/01/2023 4 Discontinue d(Refill) documented as of this encounter (statuses as of 06/24/2024) Active Problems Problem Noted Date Diagnosed Date Hypertensive kidney disease with stage 3a chronic kidney disease 01/11/2024 Vertigo 12/22/2022 Last Assessment & Plan: Occasionally gets positional vertigo, particularly when bending over. Takes meclizine as needed. Mixed Alzheimer's and vascular dementia 05/26/20 Last Assessment & Plan: At baseline History of prostate cancer 05/26/2022 Migraine without aura and wi thout status migrainosus, not intractable 10/21/2021 Last Assessment & Plan: Occasionally taking Tylenol for intermittent headaches. Has not needed Vicodin. PAF (paroxysmal atrial fibrillation) 10/21/2021 Last Assessment & Plan: Regular today. Rate controlled. -continue Coreg, Eliquis History of pulmonary embolism 10/21/2021 Last Assessment & Plan: Continue Eliquis Lumbar degenerative disc disease 10/21/2021 Chronic kidney disease, stage 3a 02/05/2021 Overview: Per CKD protocol Middle cerebral artery stenosis, right 0 Right pontine CVA 08/28/2020 Last Assessment & Plan: Baseline -continue Lipitor, ASA, Coreg Gastroesophageal reflux disease without esophagi tis 10/11/2019 Last Assessment & Plan: Stable -continue pantoprazole STACEY (generalized anxiety disorder) 10/11/2019 Last Assessment & Plan: Well controlled on Celexa Degenerative disc disease, cervical 05/20/2017 History of lung cancer 05/16/2013 Pure hypercholesterolemia 05/16/2013 HTN, goal below 140/90 05/16/2013 Last Assessment & Plan: BP stable today. -continue carvedilol Carpal tunnel syndrome 05/16/2013 documented as of this encounter (statuses as of 06/24/2024) Resolved Problems Problem Noted Date Diagnosed Date Resolved Date Prediabetes 12/09/2021 04/10/2022 Overview: Per Prediabetes protocol Hypertensive kidney disease with stage 3b chronic kidney disease 08/06/2020 01/11/2024 Overview: Per CKD protocol Last Assessment & Plan: Due for blood work -BMP ordered -continue Coreg Pulmonary embolism and infarction 03/19/2020 10/21/2021 Migraine [...] as of this encounter (statuses as of 06/24/2024) Immunizations Name Administration Dates Next Due COVID-19 mRNA, LNP-s, No Pre serve, 2-Dose Series (Moderna) 07/17/2021,11/28/2020,11/01/2020 COVID-19, LNP-s, No Preserve , Cheng-sucrose, Ages 12+ (Pfizer) 05/13/2022 COVID-19, MRNA-LNP, 23-24, P F, 30 MCG/0.3 mL, 12 YRS AND ABOVE, IM ([facility] 07/13/2023 Covid-19, Mrna, Lnp-s, Pf, B ivalent, 30 Mcg, IM, 12 yrs and above (Pfizer) 10/14/2022 Pneumococcal Conjugate Vacc, 13 Valent (Prevnar) 10/25/2015,05/12/2015 Pneumococcal Conjugate Vacci ne, 7 Valent 08/08/2012,08/28/2007 Pneumococcal Polysaccharide PPV23 (Pneumovax) 05/20/2017 RSV Vac., Bivalent, Perfusio n F, Pf,0.5 Ml (Abrysvo) 08/25/2023 Season Influenza, Quad, PF, Adjuvanted, 65+ Yrs, IM (FLUAD) 05/28/2020 Seasonal Influenza, High Dos e, Trivalent, PF, IM (Fluzone HD) 05/31/2024 Seasonal Influenza, PF, 6 M & above, IM , (FluLaval or Fluzone) 06/01/2018,07/01/2017 Seasonal Influenza, Quadriva lent Hd (Fluzone Hd) 06/16/2023,06/18/2022 Seasonal Influenza, Quadriva lent, No Preserve, IM 06/10/2016 Seasonal Influenza, Trivalen t, (IIV3), with Preserv, (Fluzone) 05/30/2015,07/12/2014,06/18/2013,07/29 Seasonal Influenza, Trivalen t, Adjuvanted, 65+ YRS, [...] Date Recorded PHQ Adult Total Score 0 09/22/2023 Hunger Vital Sign Answer Date Recorded Within the past 12 months, y ou worried that your food would run out before you got the money to buy more. Never true 09/22/20 23 Within the past 12 months, t he food you bought just didn't last and you didn't have money to get more. Never true 09/22/2023 Childcare Answer Date Recorded Do you feel overwhelmed with taking care of a child, family member or friend? No 09/22/2023 Does your family need help f inding childcare? (Household - for ages 0-17 years) Not on file 09/22/2023 Clothing Answer Date Recorded Have you been unable to get clothing when it was really needed? No 09/22/2023 Is your family able to get c lothes or diapers when needed? (Household - for ages 0-17 years) Not on file 09/22/2023 Personal Safety Answer Date Recorded Do you feel unsafe or have concerns for your saf ety? No 09/22/2023 Do you have concerns for you r family's safety? (Household - for ages 0-17 years) Not on file 09/22/2023 Utilities Answer Date Recorded Do you have trouble paying y our heating, water, or electric bill? No 09/22/2023 Is your family able to pay t he heat, water, or electric bill? (Household - for ages 0-17 years) Not on file 09/22/2023 Does your family have access to good internet? (Household - for ages 0-17 years) Not on file 09/22/2023 Employment Status Answer Date Recorded Are you unemployed or without regular income? No 09/22/2023 Does the household have a re gular source of income? (Household - for ages 0-17 years) Not on file 09/22/2023 Social Connections Answer Date Recorded How often do you feel lonely or isolated from th ose around you? Never 09/22/2023 Financial Resource Strain Answer Date R ecorded Do you have any trouble payi ng for your medications, or do you think you might in the future? No 09/22/2023 Does your family have troubl e paying for medicine? (Household - for ages 0-17 years) Not on file 09/22/2023 Transportation Needs Answer Date Record ed READ ONLY Do you have troubl e getting a ride to medical visits or work? Never True 09/22/2023 Does your family have a hard time getting a ride to doctors visits? (Household - for ages 0-17 years) Not on file 09/22/2023 Has lack of transportation k ept you from medical appointments, meetings, work, or from getting things needed for daily living? Check all that apply. (Adult - for ages 18 years and over) Not on file 09/22/2023 Do you (or your family) have trouble finding or paying for a ride (transportation)? (Household - for ages 0-17 years) Not on file 09/22/2023 Housing Stability Answer Date Recorded Do you currently live in a s helter or have no steady place to sleep at night? No 09/22/2023 READ ONLY Do you think you a re at risk of becoming homeless? No 09/22/2023 Does your family worry about paying for your home or becoming homeless? (Household - for ages 0-17 years) Not on file 1 11/23/2022 Are you homeless or worried that you might be in the future? (Adult - for ages 18 years and over) Not on file Are you (or your family) adelaida eless or worried that you might be in the future? (Household - for ages 0-17 years) Not on file Food Insecurity Answer Date Recorded Do you need food for this week? No 09/22/2023 Are you able to get enough f ood for your family? (Household - for ages 0-17 years) Not on file 09/22/2023 Does your family need food t his week? (Household - for ages 0-17 years) Not on file 09/22/2023 Do you always have enough fo od for your family? (Household - for ages 0-17 years) Not on file 09/22/2023 Sex and Gender Information Value Date Recorded Sex Assigned at Male 10/11/2019 9:33 AM EST Gender Identity Male 10/11/2019 9:33 AM EST Sexual Orientation Straight 10/11/2019 9: 33 AM EST Job Start Date Occupation Industry Not on file Not on file Not on file documented as of this encounter Miscellaneous Notes * Telephone Encounter - Charity Sneed [facility] - 06/24/2024 7:40 AM EDTSigned Prescriptions: Disp Refills Carvedilol 6.25 MG Oral Tablet (Coreg) 100 Ta*3 Sig: TAKE ONE TABLET BY MOUTH EVERY MORNINGAuthorizing Provider: CHARITY SCHUMACHER AOrdering User: CHARITY SNEED-- documented in this encounter Plan of Treatment Upcoming Encounters Date Type Department Care Team (Latest Contact Info) Description 08/30/2024 1:40 PM EST Office Visit Family Practice [address] [facility] [address] [place] [address] Charity Schumacher, [address] [place] [address] 09/12/2024 2:00 PM EST Nurse Only Ancillary [facility] [address] [place] [address] Var[place], Nurse Annual Wellness Visit [address] [address] 09/27/2024 1:45 PM EST Hospital Encounter [facility], Operating Room [facility] [address] [place] [phone] John Ferrer DO [address] [place] [phone] 09/27/2024 1:45 PM EST - 09/27/2024 2:10 PM EST Surgery OR [facility], Operating Room [facility] [address] [place] [phone] John Ferrer, [address] [place] [phone] INJECTION SPINE LUMBAR OR SACRAL Scheduled Procedures Name Priority Associated Diagnoses Date/Ti me INJECTION SPINE LUMBAR OR SACRAL Lumbar radiculopathy 09/27/2024 1:45 PM EST Health Maintenance Due Date Last Done Comments COVID-19 Vaccine ( season) 2024 07/13/2023, 10/14/2022, 05/13/2022, Additional history exists Adult Wellness Visit 09/10/2024 09/10/2023, 05/31/20 21 CKD PHOS USE SMARTSET 45947 09/22/202408/29, 09/12/2022, 05/26/2022, Additional history exists Depression Screening 09/22/2024 09/22/2023 Albumin/Creatinine Ratio 01/10/2025 024, 03/27/2023, 05/26/2022, Additional history exists CKD HGB USE SMARTSET 43820 03/18/202503/18, 03/18/2024, 03/27/2023, Additional history exists DTap/Tdap Vaccines (3 - Td or Tdap) [...] this encounter Medical Devices Implanted Type Area Hospital Administrative Assistant Device Identifier Shelf Expiration Date Model / Serial / Lot Plug Mesh Small Hernia - [id number] Implanted:Qty: 1 on 12/28/2017 by Jorge Luis Krause MD at [facility] Right: Groin CR BARD : DAVOL 02/25/2019 [id number] / / [id number] documented as of this encounter Visit Diagnoses Diagnosis HTN, goal below 140/90 Unspecified essential hypertension Lumbar radiculopathy Thoracic or lumbosacral neuritis or radiculitis, unspecified documented in this encounter Advance Directives Documents on File Type Date Recorded Patient Tumbler Drier Operator Expl anation Advance Directives and Living Will 01/02/2023 ADVANCE DIRECTIVE / LIVING WILL Power of Fitness Coach 01/02/2023 POWER OF A TTORNEY Advance Directives and Living Will 11/27/2014 ADVANCE DIRECTIVE / LIVING WILL Power of Fitness Coach 11/27/2014 POWER OF A TTORNEY Healthcare Agents on File Name Relationship Healthcare Agent [facility] Communication Mukul French Adult Child Health Care Agen t (per Health Care Power of Fitness Coach document) Care Teams Principle Software Engineer Relationship Specialty Start Date End Date Charity Schumacher DO [address] [place] [address] PCP - General Internal Medicine 03/11/24 documented as of this encounter
--- OUTSIDE RECORDS SUMMARY | 2024-10-13 02:15 | External Medical Summary | Summary of Care ---
Author Name Unknown Organization [facility] Address [address] [place] [address] Phone [phone] Care Team Providers Care Therapy Assistant Name Role Phone Ranulfo Schumacher DO Primary Care Provider [phone] Reason for Visit * Reason Onset Date Comments [facility]: Maintenance 07/11/2024 Encounter Details Date Type Department Care Team (Late st Contact Info) Description 07/11/2024 Telephone [facility], [facility] [address] [facility] [place] [phone] Taar Cano, RN [address] [facility] [place] [address] [facility]: Maintenance Allergies Active Allergy Reactions Criticality Noted Date Comments Oxycodone 10/11/2020 caused heart to stopped--per patient documented as of this encounter (statuses as of 07/11/2024) Medications Medication Sig Dispensed Refills Start Date End Date Status ASPIRIN EC 81 MG PO TBEC Take 1 Tablet by mouth every evening. Active MULTI VITAMIN/MINERALS PO TABS Take 1 Tablet by mouth in the morning. Active PREVIDENT 5000 BOOSTER PLUS 1.1 % DT PSTE [place] onto teeth. Special tooth paste 09/28/2014 Active Tylenol 325 MG Oral Capsule (Acetaminophen) Take 650 mg by mouth every 6 hours as needed for Pain, Moderate. Active Diclofenac Sodium 1 % External Gel (Voltaren)Indicatio ns:Bilateral hand pain Apply topically to affected area [...] Active Citalopram Hydrobromide 20 MG Oral Tablet (CeleXA)Indications :Anxiety TAKE ONE TABLET BY MOUTH DAILY IN THE MORNING. 100 Tablet 3 09/10/2023 09/09/2024 Active HYDROcodone-Acetami nophen 5-325 MG Oral TabletIndications:L umbar degenerative disc disease Take 1 Tablet by mouth every 6 hours as needed for Pain, Mild. 45 Tablet 09/10/2023 Active Atorvastatin Calcium 40 MG Oral Tablet (Lipitor)Indication s:Dyslipidemia, goal LDL below 130 TAKE ONE TABLET BY MOUTH EVERY DAY 100 Tablet 3 09/11/2023 10/18/2024 Active Apixaban 5 MG Oral Tablet (Eliquis)Indication s:PAF (paroxysmal atrial fibrillation) ([facility]),History of pulmonary embolism TAKE ONE TABLET BY MOUTH IN THE MORNING AND TAKE ONE TABLET BY MOUTH BEFORE BEDTIME 200 Tablet 3 11/14/2023 11/13/2024 Active Gabapentin 100 MG Oral Capsule (Neurontin)Indicati ons:Lumbar degenerative disc disease TAKE ONE CAPSULE BY MOUTH TWICE A DAY -- IN THE MORNING AND IN THE EVENING 200 Capsule 3 01/08/2024 01/07/2025 Active Meclizine HCl 12.5 MG Oral Tablet (Antivert)Indicatio ns:Vertigo take one tablet by mouth twice daily 200 Tablet 1 04/25/2024 Active Pantoprazole Sodium 40 MG Oral Tablet Delayed Release (Protonix)Indicatio ns:Gastroesophageal reflux disease without esophagitis TAKE ONE TABLET BY MOUTH IN THE MORNING 90 Tablet 1 05/17/2024 05/17/2025 Active Benzonatate 100 MG Oral CapsuleIndications: Acute bronchitis due to COVID-19 virus Take 1 Capsule by mouth 3 times a day as needed for Cough. 30 Capsule 05/31/2024 Active Rollator Ultra-LightIndicati ons:Lumbar degenerative disc disease,Degenerativ e disc disease, cervical,Gait disturbance,At risk for falls,Abnormality of gait due to impairment of balance Use daily for adl's and to prevent falls. 1 Each 06/09/2024 Active Carvedilol 6.25 MG Oral Tablet (Coreg)Indications: HTN, goal below 140/90 TAKE ONE TABLET BY MOUTH EVERY MORNING 100 Tablet 3 06/24/2024 06/24/2025 Active documented as of this encounter (statuses as of 07/11/2024) Active Problems Problem Noted Date Diagnosed Date [...] as of this encounter (statuses as of 07/11/2024) Resolved Problems Problem Noted Date Diagnosed Date [...] as of this encounter (statuses as of 07/11/2024) Immunizations Name Administration Dates Next Due COVID-19 mRNA, LNP-s, No Pre serve, 2-Dose Series (Moderna) 07/17/2021,11/28/2020,11/01/2020 COVID-19, LNP-s, No Preserve , Cheng-sucrose, Ages 12+ (Pfizer) 05/13/2022 COVID-19, MRNA-LNP, 23-24, P F, 30 MCG/0.3 mL, 12 YRS AND ABOVE, IM (PFIZER-Comirnat) 07/13/2023 Covid-19, Mrna, Lnp-s, Pf, B ivalent, [...] encounter Miscellaneous Notes * Telephone Encounter - Tara Cano RN - 07/11/2024 9:47 AM EDT Patient has not had any recent utilizations and has not needed intervention by [facility]. His last HV was cancelled by and was not rescheduled. Call placed to , no answer. Call placed to son, no answer - left message on that patient will be graduated and set up with an outpatient CM for future needs. Left phone number for return call with any issues or concerns. documented in this encounter Plan of Treatment Upcoming Encounters Date Type Department Care Team (Latest Contact Info) Description 08/30/2024 1:40 PM EST Office Visit Family Practice [address] [place] [address] [address] [place] [address] Ranulfo Schumacher, [address] [place] [address] 09/12/2024 2:00 PM EST Nurse Only Family Practice 65 [facility] 293 [place] [address] Tamy Raya, HUONG [address] [place] [address] 09/27/2024 1:45 PM EST Hospital Encounter [facility], Operating Room [facility] [address] [place] [phone] John Ferrer DO [address] [place] [phone] 09/27/2024 1:45 PM EST - 09/27/2024 2:10 PM EST Surgery OR [facility], Operating Room [facility] [address] [place] [phone] John Ferrer, DO [address] [place] [phone] INJECTION SPINE LUMBAR OR SACRAL Scheduled Procedures Name Priority Associated Diagnoses Date/Ti me INJECTION SPINE LUMBAR OR SACRAL Lumbar radiculopathy 09/27/2024 1:45 PM EST Health Maintenance Due Date Last Done Comments COVID-19 Vaccine ( season) 2024 07/13/2023, 10/14/2022, 05/13/2022, Additional history exists Adult Wellness Visit 09/10/2024 09/10/2023, 05/31/20 CKD PHOS USE SMARTSET 57580 09/22/202408/29, 09/12/2022, 05/26/2022, Additional history exists Depression Screening 09/22/2024 09/22/2023 Albumin/Creatinine Ratio 01/10/2025 024, 03/27/2023, 05/26/2022, Additional history exists CKD HGB USE SMARTSET 38661 03/18/202503/18, 03/18/2024, 03/27/2023, Additional history exists DTap/Tdap [...] this encounter Medical Devices Implanted Type Area Coordinator Of Health Services Device Identifier Shelf Expiration Date Model / Serial / Lot Plug Mesh Small Hernia - [id number] Implanted:Qty: 1 on 12/28/2017 by Jorge Luis Krause MD at OR [facility] Right: Ksenia CORDON BARD : LIN 02/25/2019 [id number] / / [id number] documented as of this encounter Advance Directives Documents on File Type Date Recorded Patient Collection Development Librarian Expl anation Advance Directives and Living Will 01/02/2023 ADVANCE DIRECTIVE / LIVING WILL Power of Senior Ux Designer 01/02/2023 POWER OF A TTORNEY Advance Directives and Living Will 11/27/2014 ADVANCE DIRECTIVE / LIVING WILL Power of Senior Ux Designer 11/27/2014 POWER OF A TTORNEY Healthcare Agents on File Name Relationship Healthcare Agent Relationshi p Communication Mukul Gillian Adult Child Health Care Agen t (per Health Care Power of Senior Ux Designer document) Care Teams Therapy Assistant Relationship Specialty Start Date End Date Ranulfo Schumacher DO [address] [place] [address] PCP - General Internal Medicine 03/11/24 documented as of this encounter
--- OUTSIDE RECORDS SUMMARY | 2024-10-13 02:15 | External Medical Summary | Summary of Care ---
Author Name Unknown Organization [facility] Address [address] [place] [address] Phone [phone] Care Team Providers Care Culinary Specialist Name Role Phone Ranulfo Schumacher DO Primary Care Provider [phone] Reason for Visit * Reason Onset Date Comments Test Results 09/26/2024 Encounter Details Date Type Department Care Team (Late st Contact Info) Description 09/26/2024 Telephone Family Practice 65 [facility] [address] [place] [address] Ranulfo Schumacher DO [address] [place] [address] Test Results Allergies Active Allergy [...] 5000 BOOSTER PLUS 1.1 % DT PSTE [place] onto teeth. Special tooth paste 5 Active [...] (Prevnar) 10/25/2015,05/12/2015 Pneumococcal Conjugate Vacci ne, 20-valent ([id number]) 09/07/2024 Pneumococcal Conjugate Vacci ne, 7 Valent [...] Operating Room [facility] [address] [place] [phone] John Ferrer DO [address] [place] [address] 09/27/2024 1:45 PM EST - 09/27/2024 2:10 PM EST Surgery OR [facility], Operating Room [facility] [address] [place] [phone] John Ferrer DO [address] [place] [address] INJECTION SPINE LUMBAR OR SACRAL 11/28/2024 2:20 PM EST Office Visit Family Practice [address] [place] [address] 293 [facility], [place] [address] Ranulfo Schumacher DO 293 [facility], [place] [address] Scheduled Procedures Name Priority Associated Diagnoses Date/Ti me INJECTION SPINE LUMBAR OR SACRAL Lumbar radiculopathy 09/27/2024 1:45 PM EST Health Maintenance Due Date Last Done Comments Adult Wellness Visit 09/10/2024 09/10/2023, 05/31/20 21 Albumin/Creatinine Ratio 01/10/2025 024, 03/27/2023, 05/26/2022, Additional history exists CKD HGB USE SMARTSET 29472 08/30/202508/30, 08/30/2024, 03/18/2024, Additional history exists CKD PHOS USE SMARTSET 97639 08/30/202511/2023, 09/22/2023, 09/12/2022, Additional history exists Depression [...] this encounter Medical Devices Implanted Type Area Cash Reconciliation Specialist Device Identifier Shelf Expiration Date Model / Serial / Lot Plug Mesh Small Hernia - [id number] Implanted:Qty: 1 on 12/28/2017 by Jorge Luis Krause MD at OR [facility] Right: Groin CR BARD : DAVOL 02/25/2019 [id number] / / [id number] documented as of this encounter Advance Directives Documents on File Type Date Recorded Patient 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 Therapy Assist Expl anation Advance Directives and Living Will 01/02/2023 ADVANCE DIRECTIVE / LIVING WILL Power of Quilt Sewer 01/02/2023 POWER OF A TTORNEY Advance Directives and Living Will 11/27/2014 ADVANCE DIRECTIVE / LIVING WILL Power of Quilt Sewer 11/27/2014 POWER OF A TTORNEY Healthcare Agents on File Name Relationship Healthcare Agent [facility] p Communication Mukul Gillian Adult Child Health Care Taylorn t (per Health Care Power of Quilt Sewer document) Care Teams Culinary Specialist Relationship Specialty Start Date End Date Ranulfo Schumacher DO [address] [place] [facility] [place] [address] PCP - General Internal Medicine 03/11/24 documented as of this encounter
--- OUTSIDE RECORDS SUMMARY | 2024-10-13 02:15 | External Medical Summary | Summary of Care ---
Author Name Unknown Organization [facility] Address [address] [place] [address] Phone [phone] Care Team Providers Care Assistant Manager Trainee Name Role Phone Ranulfo Schumacher DO Primary Care Provider Reason for Visit * Reason Onset Date Comments Advice 09/07/2024 injections Encounter Details Date Type Department Care Team (Late st Contact Info) Description 09/07/2024 Telephone Family Practice 65 [facility] [address] [place] [address] Ranulfo Schumacher DO [address] [place] [address] Advice (injections) Allergies Active Allergy Reactions Criticality Noted Date Comments Oxycodone 10/11/2020 caused heart to stopped--per patient documented as of this encounter (statuses as of 09/07/2024) Medications ASPIRIN EC 81 MG PO TBEC Take 1 Tablet by mouth every evening. Active MULTI VITAMIN/MINERALS PO TABS Take 1 Tablet by mouth in the morning. Active PREVIDENT 5000 BOOSTER PLUS 1.1 % DT PSTE [place] onto teeth. Special tooth paste 5 Active [...] as of this encounter (statuses as of 09/07/2024) Active Problems Problem Noted Date Diagnosed Date [...] as of this encounter (statuses as of 09/07/2024) Resolved Problems Problem Noted Date Diagnosed Date [...] as of this encounter (statuses as of 09/07/2024) Immunizations Name Administration Dates Next Due COVID-19 mRNA, LNP-s, No Pre serve, 2-Dose Series (Moderna) 07/17/2021,11/28/2020,11/01/2020 COVID-19, LNP-s, No Preserve , Cheng-sucrose, Ages 12+ (gestigon) 05/13/2022 COVID-19, MRNA-LNP, PF, 30 M CG/0.3 mL, 12 YRS AND ABOVE, IM (PFIZER-Comirnaty) 09/07/2024,07/13/2023 Covid-19, Mrna, Lnp-s, Pf, B ivalent, 30 Mcg, IM, 12 yrs and above (Pfizer) 10/14/2022 Pneumococcal Conjugate Vacc, 13 Valent (Prevnar) 10/25/2015,05/12/2015 Pneumococcal Conjugate Vacci ne, 20-valent ([id number]) 09/07/2024 Pneumococcal Conjugate Vacci ne, 7 Valent [...] 08/31/2024 Transportation Needs Answer Date Record ed READ ONLY Do you have troubl e getting a ride to medical visits or work? Never True 08/31/2024 Does your family have a hard [...] place to sleep at night? No 08/31/2024 READ ONLY Do you think you a re at risk of becoming homeless? No 08/31/2024 Does your family worry about paying [...] encounter Miscellaneous Notes * Telephone Encounter - Anna Agosto LPN - 09/07/2024 2:00 PM EST Pt came in for injections. * Telephone Encounter - Mirela Jimenez OSA - 09/07/2024 12:57 PM EST Pt son walked into office to advise at the last visit,. Pt was to have a covid shot and another shot (he couldn't remember which one) but never had them done. He states he will bring him back sometime this week to have those done. documented in this encounter Plan of Treatment Upcoming Encounters Date Type Department Care Team (Latest Contact Info) Description 09/22/2024 4:00 PM EST Cardiac Studies Cardiac Studies, [facility] [address] [place] [id number] 09/27/2024 1:45 PM EST Hospital Encounter OR [facility], Operating Room [facility] [address] [place] [phone] John Ferrer, [address] [place] [phone] 09/27/2024 1:45 PM EST - 09/27/2024 2:10 PM EST Surgery OR [facility], Operating Room [facility] [address] [place] [phone] John Ferrer, [address] [place] [address] INJECTION SPINE LUMBAR OR SACRAL 11/28/2024 2:20 PM EST Office Visit Family Practice [address] [place] [address] 293 [place] [address] Ranulfo Schumacher, DO 293 [facility] [place] [address] Scheduled Procedures Name Priority Associated Diagnoses Date/Ti me INJECTION SPINE LUMBAR OR SACRAL Lumbar radiculopathy 09/27/2024 1:45 PM EST Health Maintenance Due Date Last Done Comments Adult Wellness Visit 09/10/2024 09/10/2023, 05/31/20 21 Albumin/Creatinine Ratio 01/10/2025 024, 03/27/2023, 05/26/2022, Additional history exists CKD HGB USE SMARTSET 76845 08/30/202508/30, 08/30/2024, 03/18/2024, Additional history exists CKD PHOS USE SMARTSET 95164 08/30/2025 12/0 11/2023, 09/22/2023, 09/12/2022, Additional history exists Depression Screening 08/31/2025 08/31/2024, 08/30/20 24 DTap/Tdap Vaccines (3 - Td or Tdap) 06/26/2033 06/26/2023, 05/16/2013 Zoster Vaccines Completed 08/19/2019, 05/30, 06/28/2007 Influenza Vaccine (FLU shot) Completed 11/2023, 06/16/2023, 06/18/2022, Additional history exists COVID-19 Vaccine Completed 09/07/2024, , 10/14/2022, Additional history exists Pneumococcal Vaccine: 65+ Years Completed 09/07/2024, 05/20/2017, 10/25/2015, Additional history [...] this encounter Medical Devices Implanted Type Area Release Of Information Clerk Device Identifier Shelf Expiration Date Model / Serial / Lot Plug Mesh Small Hernia - [id number] Implanted:Qty: 1 on 12/28/2017 by Jorge Luis Krause MD at OR [facility] Right: Groin CR BARD : DAVOL 02/25/2019 [id number] / / [id number] documented as of this encounter Advance Directives Documents on File Type Date Recorded Patient Client Development Manager Expl anation Advance Directives and Living Will 01/02/2023 ADVANCE DIRECTIVE / LIVING WILL Power of Manager Specialty 01/02/2023 POWER OF A TTORNEY Advance Directives and Living Will 11/27/2014 ADVANCE DIRECTIVE / LIVING WILL Power of Manager Specialty 11/27/2014 POWER OF A TTORNEY Healthcare Agents on File Name Relationship Healthcare Agent [facility] p Communication Mukul Gillian Adult Child Health Care Agen t (per Health Care Power of Manager Specialty document) Care Teams Assistant Manager Trainee Relationship Specialty Start Date End Date Ranulfo Schumacher DO [address] [place] [address] PCP - General Internal Medicine 03/11/24 documented as of this encounter
--- OUTSIDE RECORDS SUMMARY | 2024-10-13 02:15 | External Medical Summary | Summary of Care ---
Author Name Unknown Organization [facility] Address [address] [place] [address] Phone [phone] Care Team Providers Care Crop Puller Name Role Phone Ranulfo Schumacher DO Primary Care Provider [phone] Encounter Details Date Type Department Care Team (Late st Contact Info) Description 09/07/2024 1:15 PM EST Immunization Ancillary [address] [address], Covid19 Vaccine [address] [address] Need for COVID-19 vaccine*; Need for pneumococcal 20-valent conjugate vaccination Allergies Active Allergy Reactions Criticality Noted Date Comments Oxycodone 10/11/2020 caused heart to stopped--per patient documented as of this encounter (statuses as of 09/07/2024) Medications ASPIRIN EC 81 MG PO TBEC Take 1 Tablet by mouth every evening. Active MULTI VITAMIN/MINERALS PO TABS Take 1 Tablet by mouth in the morning. Active PREVIDENT 5000 BOOSTER PLUS 1.1 % DT PSTE [place] onto teeth. Special tooth paste 5 Active [...] LNP-s, No Preserve , Cheng-sucrose, Ages 12+ ([employer]) 05/13/2022 COVID-19, MRNA-LNP, PF, 30 M CG/0.3 mL, 12 YRS AND ABOVE, IM (PFIZER-Comirnaty) 09/07/2024,07/13/2023 Covid-19, Mrna, Lnp-s, Pf, B ivalent, 30 Mcg, IM, 12 yrs and above (Pfizer) 10/14/2022 Pneumococcal Conjugate Vacc, 13 Valent (Prevnar) 10/25/2015,05/12/2015 Pneumococcal Conjugate Vacci ne, 20-valent ([id number]) 09/07/2024 Pneumococcal Conjugate Vacci ne, 7 Valent [...] 4:00 PM EST Cardiac Studies Cardiac Studies, [facility] [address] [place] [address] 09/27/2024 1:45 PM EST Hospital Encounter OR [facility], Operating Room [facility] [address] [place] [phone] John Ferrer, DO [address] [place] [phone] 09/27/2024 1:45 PM EST - 09/27/2024 2:10 PM EST Surgery OR [facility], Operating Room [facility] [address] [place] [phone] John Ferrer, DO [address] [place] [address] INJECTION SPINE LUMBAR OR SACRAL 11/28/2024 2:20 PM EST Office Visit Family Practice [address] [place] [address] 293 [place] [address] Ranulfo Schumacher, 293 [place] [address] Scheduled Procedures Name Priority Associated Diagnoses Date/Ti me INJECTION SPINE LUMBAR OR SACRAL Lumbar radiculopathy 09/27/2024 1:45 PM EST Health Maintenance Due Date Last Done Comments Adult Wellness Visit 09/10/2024 09/10/2023, 05/31/20 21 Albumin/Creatinine Ratio 01/10/202501/10/2 024, 03/27/2023, 05/26/2022, Additional history exists CKD HGB USE SMARTSET 86809 08/30/202508/30, 08/30/2024, 03/18/2024, Additional history exists CKD PHOS USE SMARTSET 00785 08/30/2025 12/11/2023, 09/22/2023, 09/12/2022, Additional history exists Depression Screening [...] this encounter Medical Devices Implanted Type Area Permit Review Assistant Device Identifier Shelf Expiration Date Model / Serial / Lot Plug Mesh Small Hernia - [id number] Implanted:Qty: 1 on 12/28/2017 by Jorge Luis Krause MD at OR [facility] Right: Groin CR BARD : DAVOL 02/25/2019 [id number] / / [id number] documented as of this encounter Visit Diagnoses [...] of pulmonary embolism Vertigo Dizziness and giddiness Need for COVID-19 vaccine- Primary Need for pneumococcal 20-valent conjugate vaccination Lumbar radiculopathy Thoracic or lumbosacral neuritis or radiculitis, unspecified documented in this encounter Advance Directives Documents on File Type Date Recorded Patient Nutrition Representative Expl anation Advance Directives and Living Will 01/02/2023 ADVANCE DIRECTIVE / LIVING WILL Power of Project Mgr 01/02/2023 POWER OF A TTORNEY Advance Directives and Living Will 11/27/2014 ADVANCE DIRECTIVE / LIVING WILL Power of Project Mgr 11/27/2014 POWER OF A TTORNEY Healthcare Agents on File Name Relationship Healthcare Agent [facility] p Communication Mukul [facility] Adult Child Health Care Agen t (per Health Care Power of Project Mgr document) Care Teams Crop Puller Relationship Specialty Start Date End Date Ranulfo Schumacher DO [address] [place] [address] PCP - General Internal Medicine 03/11/24 documented as of this encounter
--- OUTSIDE RECORDS SUMMARY | 2024-10-13 02:16 | External Medical Summary | Summary of Care ---
Author Name Unknown Organization [facility] Address [address] [place] [address] Phone [phone] Care Team Providers Care Optimization Specialist Name Role Phone Ranulfo Schumacher DO Primary Care Provider [phone] Encounter Details Date Type Department Care Team (Late st Contact Info) Description 06/13/2024 Result Scan Unspecified Department Florencia Chaidez DO [address] [place] [address] <No scans attached> Allergies Active Allergy Reactions Criticality Noted Date Comments Oxycodone 10/11/2020 caused heart to stopped--per patient documented as of this encounter (statuses as of 06/13/2024) Medications Medication Sig Dispensed Refills Start Date End Date Status ASPIRIN EC 81 MG PO TBEC Take 1 Tablet by mouth every evening. Active MULTI VITAMIN/MINERALS PO TABS Take 1 Tablet by mouth in the morning. Active PREVIDENT 5000 BOOSTER PLUS 1.1 % DT PSTE [place] onto teeth. Special tooth paste 09/28/2014 Active [...] Patch topically on the skin daily. Active Carvedilol 6.25 MG Oral Tablet (Coreg)Indications: HTN, goal below 140/90 TAKE ONE TABLET BY MOUTH EVERY MORNING 100 Tablet 3 01/01/2023 Active Albuterol Sulfate HFA 108 (90 Base) [...] MOUTH EVERY DAY 100 Tablet 3 09/11/2023 09/10/2024 Active Apixaban 5 MG Oral Tablet (Eliquis)Indication s:PAF (paroxysmal atrial fibrillation) (HCC),History of pulmonary embolism [...] to prevent falls. 1 Each 06/09/2024 Active documented as of this encounter (statuses as of 06/13/2024) Active Problems Problem Noted Date Diagnosed Date Hypertensive kidney disease with stage 3a chronic kidney disease 01/11/2024 Vertigo 12/22/2022 Last Assessment & Plan: Occasionally gets positional vertigo, particularly when bending over. Takes meclizine as needed. Mixed Alzheimer's and vascular dementia 05/26/20 22 Last Assessment & Plan: At baseline History [...] as of this encounter (statuses as of 06/13/2024) Resolved Problems Problem Noted Date Diagnosed Date [...] as of this encounter (statuses as of 06/13/2024) Immunizations Name Administration Dates Next Due COVID-19 mRNA, LNP-s, No Pre serve, 2-Dose Series (Moderna) 07/17/2021,11/28/2020,11/01/2020 COVID-19, LNP-s, No Preserve , Cheng-sucrose, Ages 12+ ([employer]) 05/13/2022 COVID-19, MRNA-LNP, 23-24, P F, 28 [...] No 09/22/2023 Does the household have a [facility] source of income? (Household - for ages [...] on file documented as of this encounter Plan of Treatment Upcoming Encounters Date Type Department Care Team (Late st Contact Info) Description 08/30/2024 1:40 PM EST Office Visit Family Practice 65 [facility] 293 [place] [phone] Ranulfo Schumacher DO 293 [place] [address] 09/12/2024 2:00 PM EST Nurse Only Ancillary 65 [facility] [address] [place] [address] College, Nurse Annual Wellness Visit 65 [facility] [address] [place] [address] Scheduled Procedures Name Priority Associated Diagnoses Date/Ti me INJECTION SPINE LUMBAR OR SACRAL Lumbar radiculopathy Health Maintenance Due Date Last Done Comments COVID-19 Vaccine ( season) 2024 07/13/2023, 10/14/2022, 05/13/2022, Additional history exists Adult Wellness Visit 09/10/2024 09/10/2023, 05/31/20 21 CKD PHOS USE SMARTSET 94382 09/22/202408/29, 09/12/2022, 05/26/2022, Additional history exists Depression Screening 09/22/2024 09/22/2023 Albumin/Creatinine Ratio 01/10/2025 024, 03/27/2023, 05/26/2022, Additional history exists CKD HGB USE SMARTSET 89935 03/18/202503/18, 03/18/2024, 03/27/2023, Additional history exists DTap/Tdap [...] this encounter Medical Devices Implanted Type Area Industrial Maintenance Manager Device Identifier Shelf Expiration Date Model / Serial / Lot Plug Mesh Small Hernia - [id number] Implanted:Qty: 1 on 12/28/2017 by Jorge Luis Krause MD at OR [facility] Right: Groin CR BARD : DAVOL 02/25/2019 [id number] / / [id number] documented as of this encounter Procedures Procedure Name Priority Date/Time Associated Diagnosis Comments CARDIOLOGY SCANNED RESULT 06/13/2024 documented in this encounter Results * CARDIOLOGY SCANNED RESULT (06/13/2024) 06/13/2024 Florencia Tamy Kaylynn MADDOX OTHER documented in this encounter Advance Directives Documents on File Type Date Recorded Patient Bedspring Assembler Expl anation Advance Directives and Living Will 01/02/2023 ADVANCE DIRECTIVE / LIVING WILL Power of All Round Butcher 01/02/2023 POWER OF A TTORNEY Advance Directives and Living Will 11/27/2014 ADVANCE DIRECTIVE / LIVING WILL Power of All Round Butcher 11/27/2014 POWER OF A TTORNEY Healthcare Agents on File Name Relationship Healthcare Agent [facility] p Communication Mukul French Adult Child Health Care Agen t (per Health Care Power of All Round Butcher document) Care Teams Optimization Specialist Relationship Specialty Start Date End Date Ranulfo Schumacher DO [address] [place] [address] PCP - General Internal Medicine 03/11/24 documented as of this encounter
--- OUTSIDE RECORDS SUMMARY | 2024-10-13 02:16 | External Medical Summary | Summary of Care ---
Author Name Unknown Organization [facility] Address [address] [place] [address] Phone [phone] Care Team Providers Care Pipe Coverer Helper Name Role Phone Ranulfo Schumacher DO Primary Care Provider Reason for Visit * Reason Onset Date Comments Follow Up Medication Administration 05/31/2024 Flu an d/or Pneumo Inj Encounter Details Date Type Department Care Team (Late st Contact Info) Description 05/31/2024 3:00 PM EDT Office Visit Family Practice [address] [place] [address] [address] [place] [id number] Ranulfo Schumacher DO [address] [place] [address] Acute bronchitis due to COVID-19 virus*; PAF (paroxysmal atrial fibrillation) ([facility]); Mixed Alzheimer's and vascular dementia (HCC); Lumbar degenerative disc disease; History of prostate cancer; Hypertensive kidney disease with stage 3a chronic kidney disease (HCC); Middle cerebral artery stenosis, right; Pure hypercholesterolemia; History of lung cancer; Need for prophylactic vaccination and inoculation against influenza; Risk and functional assessment Allergies Active Allergy Reactions Criticality Noted Date Comments Oxycodone 10/11/2020 caused heart to stopped--per patient documented as of this encounter (statuses as of 06/02/2024) Medications Medication Sig Dispensed Refills Start Date End Date Status ASPIRIN EC 81 MG PO TBEC Take 1 Tablet by mouth every evening. Active MULTI VITAMIN/MINERALS PO TABS Take 1 Tablet by mouth in the morning. Active PREVIDENT 5000 BOOSTER PLUS 1.1 % DT PSTE [place] onto teeth. Special tooth paste 09/28/2014 Active [...] daily. Active Carvedilol 6.25 MG Oral Tablet (Coreg)Indication [...] MORNING. 100 Tablet 3 09/10/2023 4 Active HYDROcodone-Aceta minophen 5-325 MG Oral TabletIndications :Lumbar degenerative disc disease Take 1 Tablet by mouth every 6 hours as needed for Pain, Mild. 45 Tablet 09/10/2023 Active Atorvastatin Calcium 40 MG Oral Tablet (Lipitor)Indicati ons:Dyslipidemia, goal LDL below 130 TAKE ONE TABLET BY MOUTH EVERY DAY 100 Tablet 3 09/11/2023 4 Active Apixaban 5 MG Oral Tablet (Eliquis)Indicati ons:PAF (paroxysmal atrial fibrillation) (HCC),History of pulmonary embolism TAKE ONE TABLET BY MOUTH IN THE MORNING AND TAKE ONE TABLET BY MOUTH BEFORE BEDTIME 200 Tablet 3 11/14/2023 5 Active Gabapentin 100 MG Oral Capsule (Neurontin)Indica [...] 05/17/2024 5 Active Benzonatate 100 MG Oral CapsuleIndication s:Acute bronchitis due to COVID-19 virus Take 1 Capsule by mouth 3 times a day as needed for Cough. 30 Capsule 05/31/2024 Active Molnupiravir 200 MG Oral CapsuleIndication s:COVID-19 virus infection Take 4 Capsules by mouth in the morning and 4 Capsules before bedtime. Do all this for 5 days. 40 Capsule 05/16/2024 4 Discontinued documented as of this encounter (statuses as of 06/02/2024) Active Problems Problem Noted Date Diagnosed Date [...] as of this encounter (statuses as of 06/02/2024) Resolved Problems Problem Noted Date Diagnosed Date [...] as of this encounter (statuses as of 06/02/2024) Immunizations Name Administration Dates Next Due COVID-19 mRNA, LNP-s, No Pre serve, 2-Dose Series (Moderna) 07/17/2021,11/28/2020,11/01/2020 COVID-19, LNP-s, No Preserve , Cheng-sucrose, Ages 12+ (BIOSAFE) 05/13/2022 COVID-19, MRNA-LNP, 23-24, P F, 30 MCG/0.3 mL, 12 YRS AND ABOVE, IM ([employer] [facility]) 07/13/2023 Covid-19, Mrna, Lnp-s, Pf, B ivalent, 30 Mcg, IM, 12 yrs and above (BIOSAFE) 10/14/2022 Pneumococcal Conjugate Vacc, 13 Valent (Prevnar) [...] Passive Smoke Exposure: Past Smokeless Tobacco: Never Tobacco Cessation:Counseling Given: Yes Alcohol Use Standard Drinks/Week Comments No 0 [...] on file documented as of this encounter Last Filed Vital Signs Vital Sign Reading Time Taken Comments Blood Pressure 130/70 05/31/2024 2:25 PM EDT Pulse 74 05/31/2024 2:25 PM EDT Temperature 36.3 C (97.3 F) 05/31/2024 2:25 PM ED T Respiratory Rate 14 05/31/2024 2:25 PM EDT Oxygen Saturation 94% 05/31/2024 2:25 PM EDT Inhaled Oxygen Concentration - - Weight 69.7 kg (153 lb 9.6 oz) 05/31/2024 2:25 P M EDT Height 158.8 cm (5' 2.5") 05/31/2024 2:25 PM EDT Body Mass Index 27.65 05/31/2024 2:25 PM EDT documented in this encounter Patient Instructions * Patient Instructions* Tamy Harper LPN - 05/31/2024 2:22 PM EDT Patient Instructions - Fall Prevention (This education [...] pathway between the bedroom and the bathroom [employer] Patient Education Copyright 2008 - 2010 Cora [...] 10 times. Repeat this throughout the day. [employer] Patient Education Copyright 2009 - 2010 [employer] except where otherwise noted. Preventing Falls: Moving [...] that mean climbing, even on a stepstool. [employer] Patient Education Copyright 2008 - 2010 [employer] except where otherwise noted. Treating Urinary Incontinence [...] prostate surgery can result in permanent incontinence. ~~PATIENT INSTRUCTIONS FOR FLU SHOT~~ Possible side effects of influenza vaccine, (flu shot), are usually mild and include: 1. Soreness or redness at injection site 2. Low grade fever 3. Body aches You may use Tylenol/Acetaminophen as needed for these symptoms. LET YOUR DOCTOR KNOW IMMEDIATELY IF YOU HAVE DIFFICULTY BREATHING OR SWALLOWING, EXPERIENCE ITCHINGOF FEET OR HANDS, HAVE SWELLING OF EYES, FACE OR INSIDE OF NOSE. documented in this encounter Progress Notes * Tamy Raya RN - 06/02/2024 12:06 PM EDT RN Lead: Tamy Raya RN Date: 06/02/2024 Patient seen for ASC: acute bronchitis due to covid-19 virus Connected with patient via phone-spoke with , Savita. Verified patient name/. Assessment: Pt. seen: 05/31/24 Treatment plan: Acute bronchitis due to COVID-19 virus (Primary) - Start Benzonatate 100 MG Oral Capsule; Take 1 Capsule by mouth 3 times a day as needed for Cough. Symptoms are improving PAF (paroxysmal atrial fibrillation) (HCC) Continue Apixaban and Carvedilol Status update: spoke with -states he got the benzonatate 100 mg-he is taking 1 capsule as needed and it is helping with his cough. He is improving, slowly. Told to continue to monitor and if he is having further issues or worsening symptoms they are to call the office. Medication Reconciliation: Medication Reconciliation completed: Yes Careteam: Operational Intelligence Analyst: Yes G@H Please let patient know you will be sharing with the CM and they may contact patient for future follow up. If patient is case managed, please route note to CM. If patient requires further follow-up for this ASC episode, please reach out directly to the immigration case manager via Teams or Holographic Projection for Architecture. Plan for Future Contacts: Plan to follow up Keep scheduled appointment 08/30/[address] Schumacher Advancement/Closure Plan: Patient provided contact information and encouraged to call CM or clinic directly with any changes in condition. * Tamy Raya RN - 06/01/2024 1:20 PM EDT RN Lead: Tamy Raya RN Date: 06/01/2024 Patient seen for ASC: acute bronchitis due to covid 19 and PAF Assessment: Pt. seen: 05/31/24 Treatment plan: Acute bronchitis due to COVID-19 virus (Primary) - Start Benzonatate 100 MG Oral Capsule; Take 1 Capsule by mouth 3 times a day as needed for Cough. Symptoms are improving PAF (paroxysmal atrial fibrillation) (HCC) Continue Apixaban and Carvedilol Call to pt-no answer-message left to call back at [phone] * Ranulfo Schumacher DO - 05/31/2024 3:17 PM EDT SUBJECTIVE: Mor French is a 84 year old male. Chief Complaint Patient presents with Follow Up Medication Administration Flu and/or Pneumo Inj HPI: Patient is an 84 year old male with a history of Atrial Fibrillation, COPD, GERD, Mixed Dementia, bilateral Carpal Tunnel Syndrome, Lumbar DDD, Prostate Cancer treated with Prostatectomy, Lung Cancertreated with right middle lobectomy, bilateral Pulmonary Emboli, right [place]ine CVA, left Internal Capsule / Thalamic CVA, and right MCA Stenosis that is seen for follow up. He is recovering from covid. He continues to cough at night. No chest pain ro shortness of breath are present. Weight is stable and appetite is good. Memory loss has worsened per his son. The patient was brought to the visit by his son. Patient Active Problem List Diagnosis [...] Take 1 Tablet by mouth at bedtime. Lidocaine 4 % External Patch Place 1 Patch topically on the skin daily. Carvedilol 6.25 MG Oral Tablet (Coreg) TAKE ONE TABLET BY MOUTH EVERY MORNING 100 Tablet 3 Albuterol Sulfate HFA 108 (90 Base) MCG/ACT [...] as needed for Cough. 30 Capsule 0 PREVIDENT 5000 BOOSTER PLUS 1.1 % DT PSTE [place] onto teeth. Special tooth paste Diclofenac Sodium 1 % External Gel (Voltaren) Apply topically to affected area 4 g in the morning AND 4 g before bedtime. Apply to bilateral hand two times a day. 350 g 3 No current facility-administered medications for this visit. [...] performed by Alexander Langford MD at [facility] EGD, FLEXIBLE, DIAGNOSTIC 08/01/2013 UPPER GI ENDOSCOPY DIAGNOSTIC performed by Alexander Langford MD at [facility] INJECT DX/THER SUBSTANCE INTERLAMINAR CERVICAL/THORACIC W [...] OSSC LAMINECTOMY/LAMINOTOMY, LUMBAR, GUIDE 1997 and 10/1982 [place] UNLISTED PROCEDURE SPINE T12/L1 in 05/1998, L3-L5 in 10/1982 RADICAL PROSTATE REMOVAL 11/2003 RECONSTRUCT/REPLACE SHOULDER JOINT Left 06/18/2020 REMOVAL OF APPENDIX 1972 REPAIR INITIAL INGUINAL HERNIA REDUCIBLE AGE 5 OR MORE Right 12/28/2017 12/28/2017 REPAIR INITIAL INGUINAL HERNIA REDUCIBLE AGE 5 OR MORE performed by Jorge Luis Krause MD at OR [facility] SINGLE LOBECTOMY, LUNG 1998 right middle lobe Review of patient's allergies indicates: Allergen Reactions Oxycodone caused heart to stopped--per patient Review of Systems Constitutional: Negative for appetite change, chills, fatigue, fever and unexpected weight change. HENT: Negative for congestion, sore throat and trouble swallowing. Respiratory: Positive for cough. Negative for shortness of breath and wheezing. Cardiovascular: Negative for chest pain, palpitations and leg swelling. Gastrointestinal: Negative for abdominal pain, blood in stool, constipation, diarrhea, nausea and vomiting. Genitourinary: Negative for dysuria, frequency and hematuria. Musculoskeletal: Positive for arthralgias, back pain and gait problem. Neurological: Negative for dizziness, syncope and headaches. Psychiatric/Behavioral: Positive for confusion and decreased concentration. Negative for sleep disturbance. OBJECTIVE: BP 130/70 | Pulse 74 | Temp 36.3 C (97.3 F) | Resp 14 | Ht 1.588 m (5' 2.5") | Wt 69.7 kg (153 lb 9.6 oz) | SpO2 94% | BMI 27.65 kg/m | BSA 1.75 m Physical Exam Vitals and nursing note [...] lower leg: No edema. Neurological: Mental Status: He is alert and oriented to person, place, and time. Mental status is at baseline. Motor: No weakness. Gait: Gait abnormal. Psychiatric: Cognition and Memory: Cognition is impaired. Memory is impaired. PLAN AND ASSESSMENT: Acute bronchitis due to COVID-19 virus (Primary) - Start Benzonatate 100 MG Oral Capsule; Take 1 Capsule by mouth 3 times a day as needed for Cough. Symptoms are improving PAF (paroxysmal atrial fibrillation) (HCC) Continue Apixaban and Carvedilol Mixed Alzheimer's and vascular dementia (HCC) Memory continues to worsen Lumbar degenerative disc disease Continue Gabapentin History of prostate cancer Treated with Prostatectomy Hypertensive kidney disease with stage 3a chronic kidney disease (HCC) Continue Carvedilol Middle cerebral artery stenosis, right Continue Apixaban Pure hypercholesterolemia Continue Atorvastatin History of lung cancer Treated surgically Need for prophylactic vaccination and inoculation against influenza - INFLUENZA VAC., TRIVALENT, HD, PF, 65 AND ABOVE, 0.5 ML IM (FLUZONE HD) Risk and functional assessment Follow Up: Return in about 3 months (around 08/30/2024), or if symptoms worsen or fail to improve. Ranulfo Schumacher DO 3:17 PM 05/31/2024 * Tamy Harper LPN - 05/31/2024 2:21 PM EDT PRE - ADMINISTRATION DOCUMENTATION Are you experiencing any cold symptoms or fever? No Have you had Guillain-Mescalero Syndrome (an illness that causes paralysis) within the last 6 weeks? No Have you had the flu shot in the past? YES Have you ever had a reaction to the flu shot? no Tamy Harper LPN, 05/31/2024 2:25 PM documented in this encounter Nursing Notes * Tamy Harper LPN - 05/31/2024 2:25 PM EDT Patient presents for follow up, voices no complaints. documented in this encounter Plan of Treatment Upcoming Encounters Date Type Department Care Team (Late st Contact Info) Description 06/09/2024 11:00 AM EDT Scheduled Telephone Interventional Pain Center, [facility] [address] [place] [address] [place], Nurse Phone Call Yumiko Ford [address] [place] [address] 08/30/2024 1:40 PM EST Office Visit Family Practice [address] [facility] [address] [place] [address] Ranulfo Schumacher, [address] [place] [address] 09/12/2024 2:00 PM EST Nurse Only Ancillary [address] [facility] [address] [facility], [place] [address] College, Nurse Annual Wellness Visit [address], [place] [address] Health Maintenance Due Date Last Done Comments COVID-19 Vaccine ( season) 2024 07/13/2023, 10/14/2022, 05/13/2022, Additional history exists Adult Wellness Visit 09/10/2024 09/10/2023, 05/31/20 21 CKD PHOS USE SMARTSET 48195 09/22/202408/29, 09/12/2022, 05/26/2022, Additional history exists Depression Screening 09/22/2024 09/22/2023 Albumin/Creatinine Ratio 01/10/2025 024, 03/27/2023, 05/26/2022, Additional history exists CKD HGB USE SMARTSET 69591 03/18/202503/18, 03/18/2024, 03/27/2023, Additional history exists DTap/Tdap [...] this encounter Medical Devices Implanted Type Area Residential Therapist Device Identifier Shelf Expiration Date Model / Serial / Lot Plug Mesh Small Hernia - [id number] Implanted:Qty: 1 on 12/28/2017 by Jorge Luis Krause MD at OR [facility] Right: Groin CR BARD : DAVOL 02/25/2019 [id number] / / [id number] documented as of this encounter Visit Diagnoses Diagnosis Acute bronchitis due to COVID-19 virus- Primary PAF (paroxysmal atrial fibrillation) (HCC) Atrial fibrillation Mixed Alzheimer's and vascular dementia (HCC) Alzheimer's disease Lumbar degenerative disc disease Degeneration of lumbar or lumbosacral intervertebral disc History of prostate cancer Personal history of malignant neoplasm of prostate Hypertensive kidney disease with stage 3a chronic kidney disease (HCC) Middle cerebral artery stenosis, right Pure hypercholesterolemia History of lung cancer Personal history of malignant neoplasm of bronchus and lung Need for prophylactic vaccination and inoculation against influenza Risk and functional assessment Screening for unspecified condition documented in this encounter Advance Directives Documents on File Type Date Recorded Patient Payroll Services Analyst Expl anation Advance Directives and Living Will 01/02/2023 ADVANCE DIRECTIVE / LIVING WILL Power of Ship'S Master 01/02/2023 POWER OF A TTORNEY Advance Directives and Living Will 11/27/2014 ADVANCE DIRECTIVE / LIVING WILL Power of Ship'S Master 11/27/2014 POWER OF A TTORNEY Healthcare Agents on File Name Relationship Healthcare Agent [facility] p Communication Mukul French Adult Child Health Care Agen t (per Health Care Power of Ship'S Master document) Care Teams Pipe Coverer Helper Relationship Specialty Start Date End Date Ranulfo Schumacher DO [address] [place] [address] PCP - General Internal Medicine 03/11/24 documented as of this encounter
--- OUTSIDE RECORDS SUMMARY | 2024-10-13 02:16 | External Medical Summary | Summary of Care ---
Author Name Unknown Organization [facility] Address [address] [place] [address] Phone [phone] Care Team Providers Care Snailer Name Role Phone Ranulfo Schumacher DO Primary Care Provider [phone] Reason for Visit * Reason Onset Date Comments Nurse Telephone Follow Up 06/09/2024 4 Encounter Details Date Type Department Care Team (Late st Contact Info) Description 06/09/2024 11:00 AM EDT Scheduled Telephone Interventional Pain Center, [facility] [address] [place] [address] [facility] Nurse Phone Call Interventional Pain [facility] [address] [place] [address] Arrived Allergies Active Allergy Reactions Criticality Noted Date Comments Oxycodone 10/11/2020 caused heart to stopped--per patient documented as of this encounter (statuses as of 06/09/2024) Medications Medication Sig Dispensed Refills Start Date End Date Status ASPIRIN EC 81 MG PO TBEC Take 1 Tablet by mouth every evening. Active MULTI VITAMIN/MINERALS PO TABS Take 1 Tablet by mouth in the morning. Active PREVIDENT 5000 BOOSTER PLUS 1.1 % DT PSTE [place] onto teeth. Special tooth paste 09/28/2014 Active [...] needed for Cough. 30 Capsule 05/31/2024 Active documented as of this encounter (statuses as of 06/09/2024) Active Problems Problem Noted Date Diagnosed Date [...] as of this encounter (statuses as of 06/09/2024) Resolved Problems Problem Noted Date Diagnosed Date [...] as of this encounter (statuses as of 06/09/2024) Immunizations Name Administration Dates Next Due COVID-19 mRNA, LNP-s, No Pre serve, 2-Dose Series (Moderna) 07/17/2021,11/28/2020,11/01/2020 COVID-19, LNP-s, No Preserve , Cheng-sucrose, Ages 12+ ([employer]™) 05/13/2022 COVID-19, MRNA-LNP, 23-24, P F, 30 MCG/0.3 mL, 12 YRS AND ABOVE, IM ([employer]-Comirnaty) 07/13/2023 Covid-19, Mrna, Lnp-s, Pf, B ivalent, [...] encounter Miscellaneous Notes * Telephone Encounter - Ella Huerta LPN - 06/09/2024 10:03 AM EDT Procedure: L3/4 interlaminar epidural steroid injection on the right side with Dr. Ferrer on 05/11/24. Spoke with patient daughter reports 100% of reduction in pain currently. Patient rates pain 0/10 on pain scale at this time. Patient/ daughter are happy with injection and would like to repeat the injection to keep patients pain controlled. Please call Daughter Radhika ([phone]) to schedule injection. documented in this encounter Plan of Treatment Upcoming Encounters Date Type Department Care Team (Late st Contact Info) Description 08/30/2024 1:40 PM EST Office Visit Family Practice 65 [facility] [address] [place] [address] Ranulfo Schumacher, [address] [place] [address] 09/12/2024 2:00 PM EST Nurse Only Ancillary [address] [address] College, Nurse Annual Wellness Visit [address] [address] Health Maintenance Due Date Last Done Comments COVID-19 Vaccine ( season) 2024 07/13/2023, 10/14/2022, 05/13/2022, Additional history exists Adult Wellness Visit 09/10/2024 09/10/2023, 05/31/20 21 CKD PHOS USE SMARTSET 19983 09/22/202408/29, 09/12/2022, 05/26/2022, Additional history exists Depression Screening 09/22/2024 09/22/2023 Albumin/Creatinine Ratio 01/10/2025 024, 03/27/2023, 05/26/2022, Additional history exists CKD HGB USE SMARTSET 49765 03/18/202503/18, 03/18/2024, 03/27/2023, Additional history exists DTap/Tdap [...] this encounter Medical Devices Implanted Type Area Assistant Chief Engineer Device Identifier Shelf Expiration Date Model / Serial / Lot Plug Mesh Small Hernia - [id number] Implanted:Qty: 1 on 12/28/2017 by Jorge Luis Krause MD at OR [facility] Right: Groin CR BARD : DAVOL 02/25/2019 [id number] / / [id number] documented as of this encounter Advance Directives Documents on File Type Date Recorded Patient Sales Stock Associate Expl anation Advance Directives and Living Will 01/02/2023 ADVANCE DIRECTIVE / LIVING WILL Power of Sales Clerk Supervisor 01/02/2023 POWER OF A TTORNEY Advance Directives and Living Will 11/27/2014 ADVANCE DIRECTIVE / LIVING WILL Power of Sales Clerk Supervisor 11/27/2014 POWER OF A TTORNEY Healthcare Agents on File Name Relationship Healthcare Agent [facility] Communication Mukul French Adult Child Health Care Agetyler t (per Health Care Power of Sales Clerk Supervisor document) Care Teams Snailer Relationship Specialty Start Date End Date Ranulfo Schumacher DO [address] [place] [address] PCP - General Internal Medicine 03/11/24 documented as of this encounter
--- OUTSIDE RECORDS SUMMARY | 2024-10-13 02:16 | External Medical Summary | Summary of Care ---
Author Name Unknown Organization [facility] Address [address] [place] [address] Phone [phone] Care Team Providers Care Certified Drug Counselor Name Role Phone Charity Schumacher DO Primary Care Provider [phone] Reason for Visit * Reason Onset Date Comments Advice 06/09/2024 Encounter Details Date Type Department Care Team (Late st Contact Info) Description 06/09/2024 Refill Family Practice [address], [place] [address] [place] [address] Charity Schumacher DO [address] [place] [address] Degenerative disc disease, cervical*; Lumbar degenerative disc disease; Gait disturbance; At risk for falls; Abnormality of gait due to impairment of balance Allergies Active Allergy Reactions Criticality Noted Date Comments Oxycodone 10/11/2020 caused heart to stopped--per patient documented as of this encounter (statuses as of 06/15/2024) Medications Medication Sig Dispensed Refills Start Date End Date Status ASPIRIN EC 81 MG PO TBEC Take 1 Tablet by mouth every evening. Active MULTI VITAMIN/MINERALS PO TABS Take 1 Tablet by mouth in the morning. Active PREVIDENT 5000 BOOSTER PLUS 1.1 % DT PSTE [place] onto teeth. Special tooth paste 09/28/2014 Active [...] as of this encounter (statuses as of 06/15/2024) Active Problems Problem Noted Date Diagnosed Date [...] as of this encounter (statuses as of 06/15/2024) Resolved Problems Problem Noted Date Diagnosed Date [...] as of this encounter (statuses as of 06/15/2024) Immunizations Name Administration Dates Next Due COVID-19 mRNA, LNP-s, No Pre serve, 2-Dose Series (Moderna) 07/17/2021,11/28/2020,11/01/2020 COVID-19, LNP-s, No Preserve , Cheng-sucrose, Ages 12+ (Pfizer) 05/13/2022 COVID-19, MRNA-LNP, 23-24, P F, 30 MCG/0.3 mL, 12 YRS AND ABOVE, IM [facility] 07/13/2023 Covid-19, Mrna, Lnp-s, Pf, B ivalent, [...] 18 years and over) Not on file 3 Are you (or your family) adelaida eless [...] encounter Miscellaneous Notes * Telephone Encounter - Tamy Harper LPN - 06/15/2024 2:41 PM EDT Tomorrow health order created. * Telephone Encounter - Charity Schumacher DO - 06/09/2024 3:43 PM EDTSigned Prescriptions: Disp Refills Rollator Ultra-Light 1 Each 0 Sig: Use daily for adl's and to prevent falls. Authorizing Provider: CHARITY SCHUMACHER * Telephone Encounter - Charity Schumacher DO - 06/09/2024 3:43 PM EDT Walker order signed. documented in this encounter Plan of Treatment Upcoming Encounters Date Type Department Care Team (Late st Contact Info) Description 08/30/2024 1:40 PM EST Office Visit Family Practice 65 [facility] [address] [place] [address] Charity Schumacher DO [address] [place] [address] 09/12/2024 2:00 PM EST Nurse Only Ancillary 65 [facility] [address] [place] [address] College, Nurse Annual Wellness Visit [address] [address] Scheduled Procedures Name Priority Associated Diagnoses Date/Ti me INJECTION SPINE LUMBAR OR SACRAL Lumbar radiculopathy Health Maintenance Due Date Last Done Comments COVID-19 Vaccine ( season) 2024 07/13/2023, 10/14/2022, 05/13/2022, Additional history exists Adult Wellness Visit 09/10/2024 09/10/2023, 05/31/20 CKD PHOS USE SMARTSET 25359 09/22/202408/29, 09/12/2022, 05/26/2022, Additional history exists Depression Screening 09/22/2024 09/22/2023 Albumin/Creatinine Ratio 01/10/2025 024, 03/27/2023, 05/26/2022, Additional history exists CKD HGB USE SMARTSET 93028 03/18/202503/18, 03/18/2024, 03/27/2023, Additional history exists DTap/Tdap [...] this encounter Medical Devices Implanted Type Area Picker/Puller Device Identifier Shelf Expiration Date Model / Serial / Lot Plug Mesh Small Hernia - [id number] Implanted:Qty: 1 on 12/28/2017 by Jorge Luis Krause MD at OR [facility] Right: Groin CR BARD : DAVOL 02/25/2019 [id number] / / [id number] documented as of this encounter Visit Diagnoses Diagnosis Degenerative disc disease, cervical- Primary Degeneration of cervical intervertebral disc Lumbar degenerative disc disease Degeneration of lumbar or lumbosacral intervertebral disc Gait disturbance Abnormality of gait At risk for falls Personal history of fall Abnormality of gait due to impairment of balance documented in this encounter Advance Directives Documents on File Type Date Recorded 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 Advance Directives and Living Will 01/02/2023 ADVANCE DIRECTIVE / LIVING WILL Power of Fermentation Engineer 01/02/2023 POWER OF A TTORNEY Advance Directives and Living Will 11/27/2014 ADVANCE DIRECTIVE / LIVING WILL Power of Fermentation Engineer 11/27/2014 POWER OF A TTORNEY Healthcare Agents on File Name Relationship Healthcare Agent [facility] Communication Mukul French Adult Child Health Care Agen t (per Health Care Power of Fermentation Engineer document) Care Teams Certified Drug Counselor Relationship Specialty Start Date End Date Charity Schumacher DO [address] [place] [address] PCP - General Internal Medicine 03/11/24 documented as of this encounter
--- OUTSIDE RECORDS SUMMARY | 2024-10-13 02:16 | External Medical Summary | Summary of Care ---
Author Name Unknown Organization [facility] Address [address] [place] [address] Phone [phone] Care Team Providers Care Melt Room Operator Name Role Phone Ranulfo Schumacher DO Primary Care Provider [phone] Reason for Visit * Reason Onset Date Comments Nurse Telephone Follow Up 06/09/2024 4 Encounter Details Date Type Department Care Team (Late st Contact Info) Description 06/09/2024 11:00 AM EDT Scheduled Telephone Interventional Pain Center, [facility] [address] [place] [address] Lem[place] Nurse Phone Call Interventional Pain [facility] [address] [place] [address] Spinal stenosis of lumbar region without neurogenic claudication*; Chronic radicular lumbar pain Allergies Active Allergy Reactions Criticality Noted Date Comments Oxycodone 10/11/2020 caused heart to stopped--per patient documented as of this encounter (statuses as of 06/23/2024) Medications Medication Sig Dispensed Refills Start Date End Date Status ASPIRIN EC 81 MG PO TBEC Take 1 Tablet by mouth every evening. Active MULTI VITAMIN/MINERALS PO TABS Take 1 Tablet by mouth in the morning. Active PREVIDENT 5000 BOOSTER PLUS 1.1 % DT PSTE [place] onto teeth. Special tooth paste 09/28/2014 Active [...] as of this encounter (statuses as of 06/23/2024) Active Problems Problem Noted Date Diagnosed Date [...] as of this encounter (statuses as of 06/23/2024) Resolved Problems Problem Noted Date Diagnosed Date [...] as of this encounter (statuses as of 06/23/2024) Immunizations Name Administration Dates Next Due COVID-19 [...] encounter Miscellaneous Notes * Telephone Encounter - Ladan Bunch OSA - 06/23/2024 10:23 AM EDT Reason for patient's call: daughter, yadi calling to schedule pt next injection with Dr. Ferrer Caller was transferred to [place] at the clinic. * Addendum Note - Flaco Ferrer DO - 06/10/2024 4:56 PM EDTAddended by: FLACO FERRER on: 06/10/2024 04:56 PM Modules accepted: Orders * Telephone Encounter - Ella Huerta LPN [...] keep patients pain controlled. Please call Daughter Yadi [phone]) to schedule injection. documented in this encounter Plan of Treatment Upcoming Encounters Date Type Department Care Team (Late st Contact Info) Description 08/30/2024 1:40 PM EST Office Visit Family Practice 65 [facility] 293 [facility] [place] [address] Ranulfo Schumacher DO 293 [place] [address] 09/12/2024 2:00 PM EST Nurse Only Ancillary [address] [place] [address] College, Nurse Annual Wellness Visit [address] [place] [address] Scheduled Orders Name Type Priority Associated Diagnoses Orde r Schedule INJECT DX/THER SUBSTANCE INTERLAMINAR LUMBAR/SACRAL W IMAGE GUIDE Procedures Routine Chronic radicular lumbar pain Spinal stenosis of lumbar region without neurogenic claudication Expected: 06/11/2024, Expires: 10/10/2024 Scheduled Procedures Name Priority Associated Diagnoses Date/Ti me INJECTION SPINE LUMBAR OR SACRAL Lumbar radiculopathy Health Maintenance Due Date Last Done Comments COVID-19 Vaccine ( season) 2024 07/13/2023, 10/14/2022, 05/13/2022, Additional history exists Adult Wellness Visit 09/10/2024 09/10/2023, 05/31/20 CKD PHOS USE SMARTSET 36766 09/22/202408/29, 09/12/2022, 05/26/2022, Additional history exists Depression Screening 09/22/2024 09/22/2023 Albumin/Creatinine Ratio 01/10/2025 024, 03/27/2023, 05/26/2022, Additional history exists CKD HGB USE SMARTSET 94173 03/18/202503/18, 03/18/2024, 03/27/2023, Additional history exists DTap/Tdap [...] this encounter Medical Devices Implanted Type Area Mental Health Nurse Device Identifier Shelf Expiration Date Model / Serial / Lot Plug Mesh Small Hernia - [id number] Implanted:Qty: 1 on 12/28/2017 by Jorge Luis Krause MD at OR [facility] Right: Groin CR BARD : DAVOL 02/25/2019 [id number] / / [id number] documented as of this encounter Visit Diagnoses Diagnosis Spinal stenosis of lumbar region without neurogenic claudication- Primary Spinal stenosis, lumbar region, without neurogenic claudication Chronic radicular lumbar pain Thoracic or lumbosacral neuritis or radiculitis, unspecified documented in this encounter Advance Directives Documents on File Type Date Recorded 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 Advance Directives and Living Will 01/02/2023 ADVANCE DIRECTIVE / LIVING WILL Power of Barber Apprentice 01/02/2023 POWER OF A TTORNEY Advance Directives and Living Will 11/27/2014 ADVANCE DIRECTIVE / LIVING WILL Power of Barber Apprentice 11/27/2014 POWER OF A TTORNEY Healthcare Agents on File Name Relationship Healthcare Agent [facility] p Communication Mukul French Adult Child Health Care Agen t (per Health Care Power of Barber Apprentice document) Care Teams Melt Room Operator Relationship Specialty Start Date End Date Ranulfo Schumacher DO [address] [place] [address] PCP - General Internal Medicine 03/11/24 documented as of this encounter
--- OUTSIDE RECORDS SUMMARY | 2024-10-13 02:16 | External Medical Summary | Summary of Care ---
Author Name Unknown Organization [facility] Address [address] [place] [address] Phone [phone] Care Team Providers Care Salvager Helper Name Role Phone Ranulfo Schumacher DO Primary Care Provider [phone] Reason for Visit * Reason Onset Date Comments Pacemaker Clinic 05/31/202406/01 awaiting kz to recommend appt date- Remote transmission/LEATHER COVERER Encounter Details Date Type Department Care Team (Late st Contact Info) Description 05/31/2024 Telephone Cardiology, [facility] [address] [place] [address] [place], Pacer Clinic [facility] [address] [place] [address] Pacemaker Clinic (06/01 awaiting kz to recom... Allergies Active Allergy Reactions Criticality Noted Date Comments Oxycodone 10/11/2020 caused heart to stopped--per patient documented as of this encounter (statuses as of 06/03/2024) Medications Medication Sig Dispensed Refills Start Date End Date Status ASPIRIN EC 81 MG PO TBEC Take 1 Tablet by mouth every evening. Active MULTI VITAMIN/MINERALS PO TABS Take 1 Tablet by mouth in the morning. Active PREVIDENT 5000 BOOSTER PLUS 1.1 % DT PSTE [place] onto teeth. Special tooth paste 09/28/2014 Active [...] MORNING 90 Tablet 1 05/17/2024 5 Active Molnupiravir 200 MG Oral CapsuleIndication s:COVID-19 virus infection Take 4 Capsules by mouth in the morning and 4 Capsules before bedtime. Do all this for 5 days. 40 Capsule 05/16/2024 4 Discontinued documented as of this encounter (statuses as of 06/03/2024) Active Problems Problem Noted Date Diagnosed Date [...] as of this encounter (statuses as of 06/03/2024) Resolved Problems Problem Noted Date Diagnosed Date [...] as of this encounter (statuses as of 06/03/2024) Immunizations Name Administration Dates Next Due COVID-19 [...] encounter Miscellaneous Notes * Telephone Encounter - Bright Temple OSA - 06/03/2024 12:37 PM EDT Patient has been scheduled, thank you. RETURN EP CARDIO at 12:45 PM (60 min)Arrive by 12:30 PM Friday June 07, 2024 Appointment Provider:Florencia Chaidez DO in CARDIOLOGY [facility] * Telephone Encounter - Radha Mai NRCMA - 06/03/2024 11:[address] Chaidez, pt can be added on 06/07/2024 at 12:45 pm with [facility] at [facility]. Pt daughter is awareand agreeable. Please add appt to schedule. Thanks * Telephone Encounter - Radha Mai NRCMA - 06/01/2024 11:57 AM EDT Info printed for Dr Chaidez review for appt. LIGIA [place] * Telephone Encounter - Missy Arredondo LPN - 05/31/2024 2:02 PM EDT Normal Remote: No Events This is a normal remote diagnostic device check Alerts or events: None Battery data was reviewed Battery status: LEATHER COVERER, Presenting rhythm reviewed Heart Rate Histograms reviewed Normal Battery Depletion Battery depletion rate appears normal Current battery status: LEATHER COVERER, LEATHER COVERER as of 05/28/2024 Alert: Red A Red Alert was reported by the device: Device at LEATHER COVERER as of 05/28/2024 documented in this encounter Plan of Treatment Upcoming Encounters Date Type Department Care Team (Late st Contact Info) Description 06/07/2024 12:45 PM EDT Office Visit Cardiology, [facility] 132 [facility] [place] [address] Florencia Chaidez, DO [address] [place] [address] 06/09/2024 11:00 AM EDT Scheduled Telephone Interventional Pain Center, [facility] 132 [facility] [place] [address] [place], Nurse Phone Call Interventional Pain [facility] 132 [facility] [place] [address] 08/30/2024 1:40 PM EST Office Visit Family Practice 65 [facility] 293 [place] [address] Ranulfo Schumacher, 293 [facility], [place] [address] 09/12/2024 2:00 PM EST Nurse Only Ancillary 65 [facility] 293 [place] [address] College, Nurse Annual Wellness Visit [address] [place] [address] Health Maintenance Due Date Last Done Comments COVID-19 Vaccine ( season) 2024 07/13/2023, 10/14/2022, 05/13/2022, Additional history exists Adult Wellness Visit 09/10/2024 09/10/2023, 05/31/20 21 CKD PHOS USE SMARTSET 92575 09/22/202408/29, 09/12/2022, 05/26/2022, Additional history exists Depression Screening 09/22/2024 09/22/2023 Albumin/Creatinine Ratio 01/10/2025 024, 03/27/2023, 05/26/2022, Additional history exists CKD HGB USE SMARTSET 55936 03/18/202503/18, 03/18/2024, 03/27/2023, Additional history exists DTap/Tdap [...] this encounter Medical Devices Implanted Type Area Operations Project Manager Device Identifier Shelf Expiration Date Model / Serial / Lot Plug Mesh Small Hernia - [id number] Implanted:Qty: 1 on 12/28/2017 by Jorge Luis Krause MD at OR [facility] Right: Groin CR BARD : DAVOL 02/25/2019 [id number] / / [id number] documented as of this encounter Advance Directives Documents on File Type Date Recorded 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 Advance Directives and Living Will 01/02/2023 ADVANCE DIRECTIVE / LIVING WILL Power of Rn Mds 01/02/2023 POWER OF A TTORNEY Advance Directives and Living Will 11/27/2014 ADVANCE DIRECTIVE / LIVING WILL Power of Rn Mds 11/27/2014 POWER OF A TTORNEY Healthcare Agents on File Name Relationship Healthcare [facility] Communication Mukul French Adult Child Health Care Agen t (per Health Care Power of Rn Mds document) Care Teams Salvager Helper Relationship Specialty Start Date End Date Ranulfo Schumacher DO [address] [place] [address] PCP - General Internal Medicine 03/11/24 documented as of this encounter
--- OUTSIDE RECORDS SUMMARY | 2024-10-13 02:16 | External Medical Summary | Summary of Care ---
Author Name Unknown Organization [facility] Address [address] [place] [address] Phone [phone] Care Team Providers Care Edge Stainer Name Role Phone Ranulfo Schumacher DO Primary Care Provider [phone] Reason for Visit * Reason Onset Date Comments Nurse Telephone Follow Up 06/09/2024 4 Encounter Details Date Type Department Care Team (Late st Contact Info) Description 06/09/2024 11:00 AM EDT Scheduled Telephone Interventional Pain Center, [facility] 132 [place] [address] Lem[place] Nurse Phone Call Interventional Pain [facility] [address] [place] [address] Spinal stenosis of lumbar region without neurogenic claudication*; Chronic radicular lumbar pain Allergies Active Allergy Reactions Criticality Noted Date Comments Oxycodone 10/11/2020 caused heart to stopped--per patient documented as of this encounter (statuses as of 06/10/2024) Medications Medication Sig Dispensed Refills Start Date End Date Status ASPIRIN EC 81 MG PO TBEC Take 1 Tablet by mouth every evening. Active MULTI VITAMIN/MINERALS PO TABS Take 1 Tablet by mouth in the morning. Active PREVIDENT 5000 BOOSTER PLUS 1.1 % DT PSTE [place] onto teeth. Special tooth paste 09/28/2014 Active [...] as of this encounter (statuses as of 06/10/2024) Active Problems Problem Noted Date Diagnosed Date [...] as of this encounter (statuses as of 06/10/2024) Resolved Problems Problem Noted Date Diagnosed Date [...] as of this encounter (statuses as of 06/10/2024) Immunizations Name Administration Dates Next Due COVID-19 [...] as of this encounter Miscellaneous Notes * Addendum Note - Flaco Ferrer DO [...] keep patients pain controlled. Please call Daughter Rdahika ([phone]) to schedule injection. documented in this encounter Plan of Treatment Upcoming Encounters Date Type Department Care Team (Late st Contact Info) Description 08/30/2024 1:40 PM EST Office Visit Family Practice [address] [address] Ranulfo Schumacher, [address] [place] [address] 09/12/2024 2:00 PM EST Nurse Only Ancillary [address] [address] College, Nurse Annual Wellness Visit [address] [address] Scheduled Orders Name Type Priority Associated Diagnoses Orde r Schedule INJECT DX/THER SUBSTANCE INTERLAMINAR LUMBAR/SACRAL W IMAGE GUIDE Procedures Routine Chronic radicular lumbar pain Spinal stenosis of lumbar region without neurogenic claudication Expected: 06/11/2024, Expires: 10/10/2024 Health Maintenance Due Date Last Done Comments COVID-19 Vaccine ( season) 2024 07/13/2023, 10/14/2022, 05/13/2022, Additional history exists Adult Wellness Visit 09/10/2024 09/10/2023, 05/31/20 CKD PHOS USE SMARTSET 65879 09/22/202408/29, 09/12/2022, 05/26/2022, Additional history exists Depression Screening 09/22/2024 09/22/2023 Albumin/Creatinine Ratio 01/10/2025 024, 03/27/2023, 05/26/2022, Additional history exists CKD HGB USE SMARTSET 62955 03/18/202503/18, 03/18/2024, 03/27/2023, Additional history exists DTap/Tdap [...] this encounter Medical Devices Implanted Type Area Pre Sales Technical Engineer Device Identifier Shelf Expiration Date Model / Serial / Lot Plug Mesh Small Hernia - [id number] Implanted:Qty: 1 on 12/28/2017 by Jorge Luis Krause MD at OR [facility] Right: Groin CR BARD : DAVOL 02/25/2019 [id number] / / [id number] documented as of this encounter Visit Diagnoses Diagnosis Spinal stenosis of lumbar region without neurogenic claudication- Primary Spinal stenosis, lumbar region, without neurogenic claudication Chronic radicular lumbar pain Thoracic or lumbosacral neuritis or radiculitis, unspecified documented in this encounter Advance Directives Documents on File Type Date Recorded 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 Cleaner 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 Advance Directives and Living Will 01/02/2023 ADVANCE DIRECTIVE / LIVING WILL Power of Dope Mixer 01/02/2023 POWER OF A TTORNEY Advance Directives and Living Will 11/27/2014 ADVANCE DIRECTIVE / LIVING WILL Power of Dope Mixer 11/27/2014 POWER OF A TTORNEY Healthcare Agents on File Name Relationship Healthcare Agent Relationshi palma Communication Mukul French Adult Child Health Care Agen t (per Health Care Power of Dope Mixer document) Care Teams Edge Stainer Relationship Specialty Start Date End Date Ranulfo Schumacher DO [address] [place] [address] PCP - General Internal Medicine 03/11/24 documented as of this encounter
--- OUTSIDE RECORDS SUMMARY | 2024-10-13 02:16 | External Medical Summary | Summary of Care ---
Author Name Unknown Organization [facility] Address [address] [place] [address] Phone [phone] Care Team Providers Care Veneer Sample Maker Name Role Phone Ranulfo Schumacher DO Primary Care Provider [phone] Encounter Details Date Type Department Care Team (Late st Contact Info) Description 06/13/2024 Orders Only Outcomes Research Department [address] [place] [address] Sana Singh CHRA [facility] Research Other*[id number] Allergies Active Allergy Reactions Criticality Noted Date [...] 5000 BOOSTER PLUS 1.1 % DT PSTE [place] onto teeth. Special tooth paste 09/28/2014 Active [...] Oral Tablet (Eliquis)Indication s:PAF (paroxysmal atrial fibrillation) ([facility]),History of pulmonary embolism TAKE ONE [...] 09/22/2023 Does the household have a re lar [...] EST Office Visit Family Practice [address] [place] 293 [place] [address] Ranulfo Schumacher, 293 [place] [address] 09/12/2024 2:00 PM EST Nurse Only Ancillary 65 [facility] [address] [place] [address] College, Nurse Annual Wellness Visit [address] [address] Scheduled Orders Name Type Priority Associated Diagnoses Orde r Schedule MYCODE SUBSEQUENT ADULT Lab Routine My[facility] Research Other*[id number] Every 6 Months for 2 Occurrences starting 06/13/2024 until 07/03/2025 Scheduled Procedures Name Priority Associated Diagnoses Date/Ti me INJECTION SPINE LUMBAR OR SACRAL Lumbar radiculopathy Health Maintenance Due Date Last Done Comments COVID-19 Vaccine ( season) 2024 07/13/2023, 10/14/2022, 05/13/2022, Additional history exists Adult Wellness Visit 09/10/2024 09/10/2023, 05/31/20 21 CKD PHOS USE SMARTSET 04359 09/22/202408/29, 09/12/2022, 05/26/2022, Additional history exists Depression Screening 09/22/2024 09/22/2023 Albumin/Creatinine Ratio 01/10/2025 024, 03/27/2023, 05/26/2022, Additional history exists CKD HGB USE SMARTSET 54953 03/18/202503/18, 03/18/2024, 03/27/2023, Additional history exists DTap/Tdap [...] this encounter Medical Devices Implanted Type Area Candy Dipper Hand Device Identifier Shelf Expiration Date Model / Serial / Lot Plug Mesh Small Hernia - [id number] Implanted:Qty: 1 on 12/28/2017 by Jorge Luis Krause MD at OR [facility] Right: Groin CR BARD : DAVOL 02/25/2019 [id number] / / [id number] documented as of this encounter Visit Diagnoses Diagnosis My[facility] Research Other*[id number] documented in this encounter Advance Directives Documents on File Type Date Recorded 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 Advance Directives and Living Will 01/02/2023 ADVANCE DIRECTIVE / LIVING WILL Power of Circus [place]st[place] 01/02/2023 POWER OF A TTORNEY Advance Directives and Living Will 11/27/2014 ADVANCE DIRECTIVE / LIVING WILL Power of Circus [place] 11/27/2014 POWER OF A TTORNEY Healthcare Agents on File Name Relationship Healthcare Agent Relationshi p Communication Mukul [facility] Adult Child Health Care Agen t (per Health Care Power of Circus Roustabout document) Care Teams Veneer Sample Maker Relationship Specialty Start Date End Date Ranulfo Schumacher DO [address] [place] [address] PCP - General Internal Medicine 03/11/24 documented as of this encounter
--- OUTSIDE RECORDS SUMMARY | 2024-10-13 02:16 | External Medical Summary | Summary of Care ---
Author Name Unknown Organization [facility] Address [address] [place] [address] Phone [phone] Care Team Providers Care Fitness Teacher Name Role Phone Ranulfo Schumacher DO Primary Care Provider [phone] Reason for Visit * Reason Onset Date Comments Pacemaker Clinic 05/31/202406/01 awaiting kz to recommend appt date- Remote transmission/WHEEL ASSEMBLER Encounter Details Date Type Department Care Team (Late st Contact Info) Description 05/31/2024 Telephone Cardiology, [facility] [address] [place] [address] [place], Pacer Clinic [facility] 132 [place] [address] Pacemaker Clinic (06/01 awaiting kz to recom... [...] 5000 BOOSTER PLUS 1.1 % DT PSTE [place] onto teeth. Special tooth paste 09/28/2014 Active [...] encounter Miscellaneous Notes * Telephone Encounter - Radha Mai NRCMA - 06/03/2024 11:[address] Chaidez, pt can be added on 06/07/2024 at 12:45 pm with JACK at [facility]. Pt daughter is awareand agreeable. Please add [...] None Battery data was reviewed Battery status: WHEEL ASSEMBLER, Presenting rhythm reviewed Heart Rate Histograms reviewed Normal Battery Depletion Battery depletion rate appears normal Current battery status: WHEEL ASSEMBLER, WHEEL ASSEMBLER as of 05/28/2024 Alert: Red A Red Alert was reported by the device: Device at WHEEL ASSEMBLER as of 05/28/2024 documented in this encounter Plan of Treatment Upcoming Encounters Date Type Department Care Team (Late st Contact Info) Description 06/09/2024 11:00 AM EDT Scheduled Telephone [facility], [facility] [address] [place] [address] [place] Nurse Phone Call Interventional Pain [place] [address] [place] [address] 08/30/2024 1:40 PM EST Office Visit Family Practice [address] [place] [address] 293 [facility], [place] [address] Ranulfo Schumacher, DO 293 [place] [address] 09/12/2024 2:00 PM EST Nurse Only Ancillary 65 [facility] 293 [place] [address] College, Nurse Annual Wellness Visit [address] [place] [address] Health Maintenance Due Date Last Done Comments COVID-19 Vaccine ( season) 2024 07/13/2023, 10/14/2022, 05/13/2022, Additional history exists Adult Wellness Visit 09/10/2024 09/10/2023, 05/31/20 21 CKD PHOS USE SMARTSET 53849 09/22/202408/29, 09/12/2022, 05/26/2022, Additional history exists Depression Screening 09/22/2024 09/22/2023 Albumin/Creatinine Ratio 01/10/2025 024, 03/27/2023, 05/26/2022, Additional history exists CKD HGB USE SMARTSET 16147 03/18/202503/18, 03/18/2024, 03/27/2023, Additional history exists DTap/Tdap [...] this encounter Medical Devices Implanted Type Area Quality Assistant Device Identifier Shelf Expiration Date Model / Serial / Lot Plug Mesh Small Hernia - [id number] Implanted:Qty: 1 on 12/28/2017 by Jorge Luis Krause MD at OR [facility] Right: Groin CR BARD : DAVOL 02/25/2019 [id number] / / [id number] documented as of this encounter Advance Directives Documents on File Type Date Recorded Patient Skip Tender Expl anation Advance Directives and Living Will 01/02/2023 ADVANCE DIRECTIVE / LIVING WILL Power of Senior Mainframe Developer 01/02/2023 POWER OF A TTORNEY Advance Directives and Living Will 11/27/2014 ADVANCE DIRECTIVE / LIVING WILL Power of Senior Mainframe Developer 11/27/2014 POWER OF A TTORNEY Healthcare Agents on File Name Relationship Healthcare Agent [facility] Communication Mukul [facility] Adult Child Health Care Agen t (per Health Care Power of Senior Mainframe Developer document) Care Teams Fitness Teacher Relationship Specialty Start Date End Date Ranulfo Schumacher DO [address] [place] [address] PCP - General Internal Medicine 03/11/24 documented as of this encounter
--- OUTSIDE RECORDS SUMMARY | 2024-10-13 02:17 | External Medical Summary | Summary of Care ---
Author Name Unknown Organization [facility] Address [address] [place] [address] Phone [phone] Care Team Providers Care Bundle Collector Name Role Phone Ranulfo Schumacher DO Primary Care Provider [phone] Reason for Visit * Reason Onset Date Comments Pacemaker Clinic 05/31/202406/01 awaiting kz to recommend appt date- Remote transmission/CURING PRESS OPERATOR Encounter Details Date Type Department Care Team (Late st Contact Info) Description 05/31/2024 Telephone Cardiology, [facility] 132 [place] [address] [place], Pac[facility] 132 [place] [address] Pacemaker Clinic (06/01 awaiting kz to recom... Allergies Active Allergy Reactions Criticality Noted Date Comments Oxycodone 10/11/2020 caused heart to stopped--per patient documented as of this encounter (statuses as of 06/01/2024) Medications Medication Sig Dispensed Refills Start Date End Date Status ASPIRIN EC 81 MG PO TBEC Take 1 Tablet by mouth every evening. Active MULTI VITAMIN/MINERALS PO TABS Take 1 Tablet by mouth in the morning. Active PREVIDENT 5000 BOOSTER PLUS 1.1 % DT PSTE [place] onto teeth. Special tooth paste 09/28/2014 Active [...] as of this encounter (statuses as of 06/01/2024) Active Problems Problem Noted Date Diagnosed Date [...] as of this encounter (statuses as of 06/01/2024) Resolved Problems Problem Noted Date Diagnosed Date [...] as of this encounter (statuses as of 06/01/2024) Immunizations Name Administration Dates Next Due COVID-19 [...] None Battery data was reviewed Battery status: CURING PRESS OPERATOR, Presenting rhythm reviewed Heart Rate Histograms reviewed Normal Battery Depletion Battery depletion rate appears normal Current battery status: CURING PRESS OPERATOR, CURING PRESS OPERATOR as of 05/28/2024 Alert: Red A Red Alert was reported by the device: Device at CURING PRESS OPERATOR as of 05/28/2024 documented in this encounter Plan of Treatment Upcoming Encounters Date Type Department Care Team (Late st Contact Info) Description 06/09/2024 11:00 AM EDT Scheduled Telephone Interventional Pain Center, [facility] 132 [facility] [place] [address] Nurse Allan Phone Call Interventional Pain [facility] [address] [place] [address] 08/30/2024 1:40 PM EST Office Visit Family Practice 65 [facility] 293 [facility] [place] [address] Ranulfo Schumacher DO 293 [facility], [place] [address] 09/12/2024 2:00 PM EST Nurse Only Ancillary 65 [facility] 293 [facility] [place] [address] College, Nurse Annual Wellness Visit [address], [place] [address] Health Maintenance Due Date Last Done Comments COVID-19 Vaccine ( season) 2024 07/13/2023, 10/14/2022, 05/13/2022, Additional history exists Postponed from 05/29/2024 (Unavailable) Adult Wellness Visit 09/10/2024 09/10/2023, 05/31/20 CKD PHOS USE SMARTSET 03245 09/22/202408/29, 09/12/2022, 05/26/2022, Additional history exists Depression Screening 09/22/2024 09/22/2023 Albumin/Creatinine Ratio 01/10/2025 024, 03/27/2023, 05/26/2022, Additional history exists CKD HGB USE SMARTSET 33492 03/18/202503/18, 03/18/2024, 03/27/2023, Additional history exists DTap/Tdap Vaccines (3 - Td or Tdap) 06/26/2033 06/26/2023, 05/16/2013 Pneumococcal Vaccine: 65+ Years Completed 05/20/2017, 10/25/2015, 05/12/2015 Zoster Vaccines Completed 08/19/2019, 05/30, 06/28/2007 Influenza Vaccine (FLU shot) Completed 05/31/2024, 06/16/2023, 06/18/2022, Additional history exists HPV (Gardasil) [...] this encounter Medical Devices Implanted Type Area Merchandising Internship Device Identifier Shelf Expiration Date Model / Serial / Lot Plug Mesh Small Hernia - [id number] Implanted:Qty: 1 on 12/28/2017 by Jorge Luis Krause MD at OR [facility] Right: Groin CR BARD : DAVOL 02/25/2019 [id number] / / [id number] documented as of this encounter Advance Directives Documents on File Type Date Recorded Patient Garbage Pick Up Worker Expl anation Advance Directives and Living Will 01/02/2023 ADVANCE DIRECTIVE / LIVING WILL Power of Residential Green Building Designer 01/02/2023 POWER OF A TTORNEY Advance Directives and Living Will 11/27/2014 ADVANCE DIRECTIVE / LIVING WILL Power of Residential Green Building Designer 11/27/2014 POWER OF A TTORNEY Healthcare Agents on File Name Relationship Healthcare Agent Dominickin p Communication Mukul French Adult Child Health Care Agen t (per Health Care Power of Residential Green Building Designer document) Care Teams Bundle Collector Relationship Specialty Start Date End Date Ranulfo Schumacher DO [address] [place] [address] PCP - General Internal Medicine 03/11/24 documented as of this encounter
--- OUTSIDE RECORDS SUMMARY | 2024-10-13 02:17 | External Medical Summary | Summary of Care ---
Author Name Unknown Organization [facility] Address [address] [place] [address] Phone [phone] Care Team Providers Care Engine House Helper Name Role Phone Ranulfo Schumacher DO Primary Care Provider [phone] Reason for Visit * Reason Onset Date Comments Pacemaker Clinic 05/31/202406/01 awaiting kz to recommend appt date- Remote transmission/SENIOR COGNOS DEVELOPER Encounter Details Date Type Department Care Team (Late st Contact Info) Description 05/31/2024 Telephone Cardiology, [facility] 132 [place] [address] [place], Pacer Clinic [facility] 132 [place] [address] Pacemaker Clinic (06/01 awaiting kz to recom... [...] 5000 BOOSTER PLUS 1.1 % DT PSTE [place] onto teeth. Special tooth paste 09/28/2014 Active [...] AM EDT Info printed for Dr Chaidez review. LIGIA [place] * Telephone Encounter - Missy Arredondo LPN - 05/31/2024 2:02 PM EDT Normal Remote: No Events This is a normal remote diagnostic device check Alerts or events: None Battery data was reviewed Battery status: SENIOR COGNOS DEVELOPER, Presenting rhythm reviewed Heart Rate Histograms reviewed Normal Battery Depletion Battery depletion rate appears normal Current battery status: SENIOR COGNOS DEVELOPER, SENIOR COGNOS DEVELOPER as of 05/28/2024 Alert: Red A Red Alert was reported by the device: Device at SENIOR COGNOS DEVELOPER as of 05/28/2024 documented in this encounter Plan of Treatment Upcoming Encounters Date Type Department Care Team (Late st Contact Info) Description 06/09/2024 11:00 AM EDT Scheduled Telephone Interventional Pain Center, [facility] 132 [facility] [address] [facility] [place] [address] Nurse Allan Phone Call Interventional Pain [facility] [address] [place] [address] 08/30/2024 1:40 PM EST Office Visit Family Practice 65 [facility] 293 [facility] [place] [address] Ranulfo Schumacher DO 293 [facility] [place] [address] 09/12/2024 2:00 PM EST Nurse Only Ancillary 65 [facility] 293 [facility] [place] [address] College, Nurse Annual Wellness Visit [address], [place] [address] Health Maintenance Due Date Last Done Comments COVID-19 Vaccine ( season) 2024 07/13/2023, 10/14/2022, 05/13/2022, Additional history exists Postponed from 05/29/2024 (Unavailable) Adult Wellness Visit 09/10/2024 09/10/2023, 05/31/20 CKD PHOS USE SMARTSET 49596 09/22/202408/29, 09/12/2022, 05/26/2022, Additional history exists Depression Screening 09/22/2024 09/22/2023 Albumin/Creatinine Ratio 01/10/2025 024, 03/27/2023, 05/26/2022, Additional history exists CKD HGB USE SMARTSET 05583 03/18/202503/18, 03/18/2024, 03/27/2023, Additional history exists DTap/Tdap [...] this encounter Medical Devices Implanted Type Area Lifter Device Identifier Shelf Expiration Date Model / Serial / Lot Plug Mesh Small Hernia - [id number] Implanted:Qty: 1 on 12/28/2017 by Jorge Luis Krause MD at OR [facility] Right: Groin CR BARD : DAVOL 02/25/2019 [id number] / / [id number] documented as of this encounter Advance Directives Documents on File Type Date Recorded Patient Dumpcart Driver Expl anation Advance Directives and Living Will 01/02/2023 ADVANCE DIRECTIVE / LIVING WILL Power of Escort Service Attendant 01/02/2023 POWER OF A TTORNEY Advance Directives and Living Will 11/27/2014 ADVANCE DIRECTIVE / LIVING WILL Power of Escort Service Attendant 11/27/2014 POWER OF A TTORNEY Healthcare Agents on File Name Relationship Healthcare Agent Ginette waldrop Communication Mukul French Adult Child Health Care Agen t (per Health Care Power of Escort Service Attendant document) Care Teams Engine House Helper Relationship Specialty Start Date End Date Ranulfo Schumacher DO [address] [place] [address] PCP - General Internal Medicine 03/11/24 documented as of this encounter
--- OUTSIDE RECORDS SUMMARY | 2024-10-13 02:17 | External Medical Summary | Summary of Care ---
Author Name Unknown Organization [facility] Address [address] [place] [address] Phone [phone] Care Team Providers Care Denial Resolution Specialist Name Role Phone Ranulfo Schumacher DO Primary Care Provider Reason for Visit * Reason Onset Date Comments Follow Up Medication Administration 05/31/2024 Flu an d/or Pneumo Inj Encounter Details Date Type Department Care Team (Late st Contact Info) Description 05/31/2024 3:00 PM EDT Office Visit Family Practice [address] [place] [address] 293 [place] [address] Ranulfo Schumacher DO 293 [place] [address] Acute bronchitis due to COVID-19 virus*; PAF [...] 5000 BOOSTER PLUS 1.1 % DT PSTE [place] onto teeth. Special tooth paste 09/28/2014 Active [...] LNP-s, No Preserve , Cheng-sucrose, Ages 12+ (Subtextual) 05/13/2022 COVID-19, MRNA-LNP, 23-24, P F, 30 MCG/0.3 mL, 12 YRS AND ABOVE, IM ([facility]) 07/13/2023 Covid-19, Mrna, Lnp-s, Pf, B ivalent, 30 Mcg, IM, 12 yrs and above (Subtextual) 10/14/2022 Pneumococcal Conjugate Vacc, 13 Valent (Prevnar) [...] 9:33 AM EST Sexual Orientation Straight 10/11/2019 9 :33 AM EST Job Start Date Occupation Industry [...] pathway between the bedroom and the bathroom [employer] Patient Education Copyright 2008 - 2010 Cora [...] 10 times. Repeat this throughout the day. [email or web address] Patient Education Copyright 2009 - 2010 [employer] except where otherwise noted. Preventing Falls: Moving [...] that mean climbing, even on a stepstool. [email or web address] Patient Education Copyright 2008 - 2010 [email or web address] except where otherwise noted. Treating Urinary Incontinence [...] Progress Notes * Tamy Raya RN - 06/01/2024 1:20 [...] pt-no answer-message left to call back at [phone] * Ranulfo Schumacher DO - 05/31/2024 3:17 [...] STACEY (generalized anxiety disorder) Right pontine CVA ([facility]) Middle cerebral artery stenosis, right Chronic kidney disease, stage 3a ([facility]) Migraine without aura and without status migrainosus, not intractable PAF (paroxysmal atrial fibrillation) ([facility]) History of pulmonary embolism Lumbar degenerative disc disease Mixed Alzheimer's and vascular dementia ([facility]) History of prostate cancer Vertigo Hypertensive kidney disease with stage 3a chronic kidney disease ([facility]) Current Outpatient Medications Medication Sig Dispense Refill [...] 5000 BOOSTER PLUS 1.1 % DT PSTE [place] onto teeth. Special tooth paste Diclofenac Sodium [...] performed by Alexander Langford MD at [facility]COPY [facility] EGD, FLEXIBLE, DIAGNOSTIC 08/01/2013 UPPER GI ENDOSCOPY DIAGNOSTIC performed by Alexander Langford MD at [facility] INJECT DX/THER SUBSTANCE INTERLAMINAR CERVICAL/THORACIC W IMAGE [...] performed by Cachorro Navarrete, DO at OR [facility] INJECT DX/THER SUBSTANCE INTERLAMINAR LUMBAR/SACRAL W IMAGE GUIDE 11/23/2023 INJECTION SPINE LUMBAR OR SACRAL performed by John Ferrer, DO at OR [facility] INJECT DX/THER SUBSTANCE INTERLAMINAR LUMBAR/SACRAL W IMAGE GUIDE 05/11/2024 INJECTION SPINE LUMBAR OR SACRAL performed by John Ferrer, DO at OR [facility] LAMINECTOMY/LAMINOTOMY, LUMBAR, GUIDE 1997 and 10/1982 SC UNLISTED PROCEDURE SPINE T12/L1 in 05/1998, L3-L5 in 10/1982 RADICAL PROSTATE REMOVAL 11/2003 RECONSTRUCT/REPLACE SHOULDER JOINT Left 06/18/2020 REMOVAL OF APPENDIX 1972 REPAIR INITIAL INGUINAL HERNIA REDUCIBLE AGE 5 OR MORE Right 12/28/2017 12/28/2017 REPAIR INITIAL INGUINAL HERNIA REDUCIBLE AGE 5 OR MORE performed by Jorge Luis Krause MD at OR [facility] SINGLE LOBECTOMY, LUNG 1997 right middle lobe Review of patient's allergies [...] symptoms or fever? No Have you had Guillain-Mcdaniel Syndrome (an illness that causes paralysis) within [...] EDT Scheduled Telephone Interventional Pain Center, [facility] [address] [place] [address] Allan Nurse Phone Call Interventional Pain [facility] 132 [facility] [place] [address] 08/30/2024 1:40 PM EST Office Visit Family Practice 65 [facility] 293 [place] [address] Ranulfo Schumacher, 293 [place] [address] 09/12/2024 2:00 PM EST Nurse Only Ancillary 65 [facility] 293 [place] [address] College, Nurse Annual Wellness Visit [address] [place] [address] Health Maintenance Due Date Last Done Comments COVID-19 Vaccine ( season) 2024 07/13/2023, 10/14/2022, 05/13/2022, Additional history exists Postponed from 05/29/2024 (Unavailable) Adult Wellness Visit 09/10/2024 09/10/2023, 05/31/20 21 CKD PHOS USE SMARTSET 87875 09/22/202408/29, 09/12/2022, 05/26/2022, Additional history exists Depression Screening 09/22/2024 09/22/2023 Albumin/Creatinine Ratio 01/10/2025 024, 03/27/2023, 05/26/2022, Additional history exists CKD HGB USE SMARTSET 88786 03/18/202503/18, 03/18/2024, 03/27/2023, Additional history exists DTap/Tdap [...] this encounter Medical Devices Implanted Type Area Metal Mockup Maker Device Identifier Shelf Expiration Date Model / Serial / Lot Plug Mesh Small Hernia - [id number] Implanted:Qty: 1 on 12/28/2017 by Jorge Luis Krause MD at OR [facility] Right: Groin CR BARD : DAVOL 02/25/2019 [id number] / / [id number] documented as of this encounter Visit Diagnoses [...] Documents on File Type Date Recorded Patient Process Pumper Expl anation Advance Directives and Living Will 01/02/2023 ADVANCE DIRECTIVE / LIVING WILL Power of Event Planning Manager 01/02/2023 POWER OF A TTORNEY Advance Directives and Living Will 11/27/2014 ADVANCE DIRECTIVE / LIVING WILL Power of Event Planning Manager 11/27/2014 POWER OF A TTORNEY Healthcare Agents on File Name Relationship Healthcare Agent [facility] p Communication Mukul French Adult Child Health Care Agen t (per Health Care Power of Event Planning Manager document) Care Teams Denial Resolution Specialist Relationship Specialty Start Date End Date Ranulfo Schumacher DO [address] [place] [address] PCP - General Internal Medicine 03/11/24 documented as of this encounter
--- OUTSIDE RECORDS SUMMARY | 2024-10-13 02:17 | External Medical Summary | Summary of Care ---
Author Name Unknown Organization [facility] Address [address] [place] [address] Phone [phone] Care Team Providers Care Medical Technologist Prn Name Role Phone Ranulfo Schumacher DO Primary Care Provider [phone] Reason for Visit * Reason Onset Date Comments Pacemaker Clinic 05/31/2024 Remote transmis raisa/STATIONARY ENGINEER Encounter Details Date Type Department Care Team (Late st Contact Info) Description 05/31/2024 Telephone Cardiology, [facility] 132 [place] [address] [place], Pacer Clinic [facility] [address] [place] [address] Pacemaker Clinic (Remote transmission/STATIONARY ENGINEER ) Allergies Active Allergy Reactions Criticality Noted Date [...] 5000 BOOSTER PLUS 1.1 % DT PSTE [place] onto teeth. Special tooth paste 09/28/2014 Active [...] None Battery data was reviewed Battery status: STATIONARY ENGINEER, Presenting rhythm reviewed Heart Rate Histograms reviewed Normal Battery Depletion Battery depletion rate appears normal Current battery status: STATIONARY ENGINEER, STATIONARY ENGINEER as of 05/28/2024 Alert: Red A Red Alert was reported by the device: Device at STATIONARY ENGINEER as of 05/28/2024 documented in this encounter Plan of Treatment Upcoming Encounters Date Type Department Care Team (Late st Contact Info) Description 06/09/2024 11:00 AM EDT Scheduled Telephone Interventional Pain Center, [facility] [address] [place] [address] Nurse Allan Phone Call Interventional Pain [facility] 132 [facility] [place] [address] 08/30/2024 1:40 PM EST Office Visit Family Practice 65 [facility] 293 [facility], [place] [phone] Ranulfo Schumacher DO 293 [facility], [place] [address] 09/12/2024 2:00 PM EST Nurse Only Ancillary 65 [facility] 293 [facility], [place] [address] College, Nurse Annual Wellness Visit [address], [place] [address] Health Maintenance Due Date Last Done Comments COVID-19 Vaccine ( season) 2024 07/13/2023, 10/14/2022, 05/13/2022, Additional history exists Postponed from 05/29/2024 (Unavailable) Adult Wellness Visit 09/10/2024 09/10/2023, 05/31/20 CKD PHOS USE SMARTSET 53034 09/22/202408/29, 09/12/2022, 05/26/2022, Additional history exists Depression Screening 09/22/2024 09/22/2023 Albumin/Creatinine Ratio 01/10/2025 024, 03/27/2023, 05/26/2022, Additional history exists CKD HGB USE SMARTSET 46051 03/18/202503/18, 03/18/2024, 03/27/2023, Additional history exists DTap/Tdap [...] encounter Medical Devices Implanted Type Area Assistant Spa Manager Device Identifier Shelf Expiration Date Model / Serial / Lot Plug Mesh Small Hernia - [id number] Implanted:Qty: 1 on 12/28/2017 by Jorge Luis Krause MD at OR [facility] Right: Groin CR BARD : DAVOL 02/25/2019 [id number] / / [id number] documented as of this encounter Advance Directives Documents on File Type Date Recorded 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 Operator Helper Expl anation Advance Directives and Living Will 01/02/2023 ADVANCE DIRECTIVE / LIVING WILL Power of Master Steam Yacht 01/02/2023 POWER OF A TTORNEY Advance Directives and Living Will 11/27/2014 ADVANCE DIRECTIVE / LIVING WILL Power of Master Steam Yacht 11/27/2014 POWER OF A TTORNEY Healthcare Agents on File Name Relationship Healthcare Agent Ginette French Adult Child Health Care Nati t (per Health Care Power of Master Steam Yacht document) Care Teams Medical Technologist Prn Relationship Specialty Start Date End Date Ranulfo Schumacher DO [address] [place] [address] PCP - General Internal Medicine 03/11/24 documented as of this encounter
--- OUTSIDE RECORDS SUMMARY | 2024-10-13 02:17 | External Medical Summary | Summary of Care ---
Author Name Unknown Organization [facility] Address [address] [place] [address] Phone [phone] Care Team Providers Care Computer Discovery Teacher Name Role Phone Ranulfo Schumacher DO Primary Care Provider [phone] Reason for Visit * Reason Onset Date Comments Follow Up Medication Administration 05/31/2024 Flu an d/or Pneumo Inj Encounter Details Date Type Department Care Team (Late st Contact Info) Description 05/31/2024 3:00 PM EDT Office Visit Family Practice [address] [place] [address] [address] [place] [id number] Ranulfo Schumacher DO [address] [place] [address] Acute bronchitis due to COVID-19 virus*; PAF (paroxysmal atrial fibrillation) ([facility]); Mixed Alzheimer's and vascular dementia (HCC); Lumbar [...] as of this encounter (statuses as of 05/31/2024) Medications Medication Sig Dispensed Refills Start Date End Date Status ASPIRIN EC 81 MG PO TBEC Take 1 Tablet by mouth every evening. Active MULTI VITAMIN/MINERALS PO TABS Take 1 Tablet by mouth in the morning. Active PREVIDENT 5000 BOOSTER PLUS 1.1 % DT PSTE [place] onto teeth. Special tooth paste 09/28/2014 Active [...] as of this encounter (statuses as of 05/31/2024) Active Problems Problem Noted Date Diagnosed Date [...] as of this encounter (statuses as of 05/31/2024) Resolved Problems Problem Noted Date Diagnosed Date [...] as of this encounter (statuses as of 05/31/2024) Immunizations Name Administration Dates Next Due COVID-19 mRNA, LNP-s, No Pre serve, 2-Dose Series (Moderna) 07/17/2021,11/28/2020,11/01/2020 COVID-19, LNP-s, No Preserve , Cheng-sucrose, Ages 12+ (SimpleTuition) 05/13/2022 COVID-19, MRNA-LNP, 23-24, P F, 30 MCG/0.3 mL, 12 YRS AND ABOVE, IM (Not [facility]) 07/13/2023 Covid-19, Mrna, Lnp-s, Pf, B ivalent, 30 Mcg, IM, 12 yrs and above (SimpleTuition) 10/14/2022 Pneumococcal Conjugate Vacc, 13 Valent (Prevnar) [...] pathway between the bedroom and the bathroom [employer] Patient Education Copyright 2008 - 2010 Cora [...] 10 times. Repeat this throughout the day. [employer] Patient Education Copyright 2009 - 2010 [employer] except where otherwise noted. Preventing Falls: Moving [...] that mean climbing, even on a stepstool. [employer] Patient Education Copyright 2008 - 2010 [employer] except where otherwise noted. Treating Urinary Incontinence [...] encounter Progress Notes * Ranulfo Schumacher, - 05/31/2024 3:17 PM EDT SUBJECTIVE: Mor [...] 5000 BOOSTER PLUS 1.1 % DT PSTE [place] onto teeth. Special tooth paste Diclofenac Sodium [...] s/p prostatectomy 11/2003 Small cell lung cancer ([facility]) 05/16/2013 Past Surgical History: Procedure Laterality Date CARPAL TUNNEL SURGERY bilateral COLONOSCOPY, DIAGNOSTIC (RECTUM) 07/11/2013 COLONOSCOPY FLEXIBLE PROXIMAL DIAGNOSTIC performed by Alexander Langford MD at ENDOSCOPY [facility] EGD, FLEXIBLE, DIAGNOSTIC 08/01/2013 UPPER GI ENDOSCOPY DIAGNOSTIC performed by Alexander Langford MD at ENDOSCOPY [facility] INJECT DX/THER SUBSTANCE INTERLAMINAR CERVICAL/THORACIC W [...] LUMBAR OR SACRAL performed by John Ferrer, at OR [facility] INJECT DX/THER SUBSTANCE INTERLAMINAR LUMBAR/SACRAL W IMAGE GUIDE 05/11/2024 INJECTION SPINE LUMBAR OR SACRAL performed by John Ferrer DO at OR [facility] LAMINECTOMY/LAMINOTOMY, LUMBAR, GUIDE 1997 and 10/1982 HI UNLISTED PROCEDURE SPINE T12/L1 in 05/1998, L3-L5 in 10/1982 RADICAL PROSTATE REMOVAL 11/2003 RECONSTRUCT/REPLACE SHOULDER JOINT Left 06/18/2020 REMOVAL OF APPENDIX 1972 REPAIR INITIAL INGUINAL HERNIA REDUCIBLE AGE 5 OR MORE Right 12/28/2017 12/28/2017 REPAIR INITIAL INGUINAL HERNIA REDUCIBLE AGE 5 OR MORE performed by Jorge Luis Krause MD at OR [facility] SINGLE LOBECTOMY, LUNG 1998 right middle lobe [...] symptoms or fever? No Have you had Guillain-[place] Syndrome (an illness that causes paralysis) within [...] AM EDT Scheduled Telephone Interventional Pain Center, [facility] [address] [place] [address] [facility], Nurse Phone Call Interventional Pain [facility] [address] [place] [address] 08/30/2024 1:40 PM EST Office Visit Family Practice 65 [facility] 293 [place] [phone] Ranulfo Schumacher DO 293 [place] [address] 09/12/2024 2:00 PM EST Nurse Only Ancillary 65 [facility] 293 [place] [address] College, Nurse Annual Wellness Visit [address] [facility] 293 [facility], [place] [address] Health Maintenance Due Date Last Done Comments COVID-19 Vaccine ( season) 2024 07/13/2023, 10/14/2022, 05/13/2022, Additional history exists Postponed from 05/29/2024 (Unavailable) Adult Wellness Visit 09/10/2024 09/10/2023, 05/31/20 21 CKD PHOS USE SMARTSET 53155 09/22/202408/29, 09/12/2022, 05/26/2022, Additional history exists Depression Screening 09/22/2024 09/22/2023 Albumin/Creatinine Ratio 01/10/2025 024, 03/27/2023, 05/26/2022, Additional history exists CKD HGB USE SMARTSET 68730 03/18/202503/18, 03/18/2024, 03/27/2023, Additional history exists DTap/Tdap [...] this encounter Medical Devices Implanted Type Area Injection Molding Supervisor Device Identifier Shelf Expiration Date Model / Serial / Lot Plug Mesh Small Hernia - [id number] Implanted:Qty: 1 on 12/28/2017 by Jorge Luis Krause MD at OR [facility] Right: Groin CR BARD : DAVOL 02/25/2019 [id number] / / [id number] documented as of this encounter Visit Diagnoses [...] Documents on File Type Date Recorded Patient [place] Expl anation Advance Directives and Living Will 01/02/2023 ADVANCE DIRECTIVE / LIVING WILL Power of Certified Public Accountant 01/02/2023 POWER OF A TTORNEY Advance Directives and Living Will 11/27/2014 ADVANCE DIRECTIVE / LIVING WILL Power of Certified Public Accountant 11/27/2014 POWER OF A TTORNEY Healthcare Agents on File Name Relationship Healthcare Agent [facility] Communication Mukul French Adult Child Health Care Agen t (per Health Care Power of Certified Public Accountant document) Care Teams Computer Discovery Teacher Relationship Specialty Start Date End Date Ranulfo Schumacher DO [address] [facility] [place] [address] PCP - General Internal Medicine 03/11/24 documented as of this encounter
--- OUTSIDE RECORDS SUMMARY | 2024-10-13 02:18 | External Medical Summary | Summary of Care ---
Author Name Unknown Organization [facility] Address [address] [place] [address] Phone [phone] Care Team Providers Care Dump Grounds Checker Name Role Phone Ranulfo Schumacher DO Primary Care Provider [phone] Reason for Visit * Reason Onset Date Comments Pacemaker Clinic 05/31/2024 Remote transmis raisa/HALL MONITOR Encounter Details Date Type Department Care Team (Late st Contact Info) Description 05/31/2024 Telephone Cardiology, [facility] [address] [place] [address] [place], Pacer Clinic [facility] [address] [place] [address] Pacemaker Clinic (Remote transmission/HALL MONITOR ) Allergies Active Allergy Reactions Criticality Noted [...] 5000 BOOSTER PLUS 1.1 % DT PSTE [place] onto teeth. Special tooth paste 09/28/2014 Active [...] MORNING 90 Tablet 1 05/17/2024 05/17/2025 Active documented as of this encounter (statuses [...] MCG/0.3 mL, 12 YRS AND ABOVE, IM ([facility]) 07/13/2023 Covid-19, Mrna, Lnp-s, Pf, B ivalent, 30 Mcg, IM, 12 yrs and above (Pfizer) 10/14/2022 Pneumococcal Conjugate Vacc, 13 Valent (Prevnar) 10/25/2015,05/12/2015 Pneumococcal Conjugate Vacci ne, 7 Valent 08/08/2012,08/28/2007 Pneumococcal Polysaccharide PPV23 (Pneumovax) 05/20/2017 RSV Vac., Bivalent, Perfusio n F, Pf,0.5 Ml (Abrysvo) 08/25/2023 Season Influenza, Quad, PF, Adjuvanted, 65+ Yrs, IM (FLUAD) 05/28/2020 Seasonal Influenza, PF, 6 M & above, [...] No 09/22/2023 Does the household have a [facility] source of income? (Household - for ages [...] encounter Miscellaneous Notes * Telephone Encounter - Missy Arredondo LPN - 05/31/2024 2:02 PM EDT Normal Remote: No Events This is a normal remote diagnostic device check Alerts or events: None Battery data was reviewed Battery status: HALL MONITOR, Presenting rhythm reviewed Heart Rate Histograms reviewed Normal Battery Depletion Battery depletion rate appears normal Current battery status: HALL MONITOR, HALL MONITOR as of 05/28/2024 Alert: Red A Red Alert was reported by the device: Device at HALL MONITOR as of 05/28/2024 documented in this encounter Plan of Treatment Upcoming Encounters Date Type Department Care Team (Late st Contact Info) Description 05/31/2024 3:00 PM EDT Office Visit Family Practice 65 [facility] 293 [place] [address] Ranulfo Schumacher DO 293 [place] [place] [address] Risk and functional assessment* 06/09/2024 11:00 AM EDT Scheduled Telephone Interventional Pain Center, [facility] [address] [facility] [place] [address] [facility], Nurse Phone Call Interventional Pain [facility] [place] [phone] 09/12/2024 2:00 PM EST Nurse Only Ancillary 65 [facility] 293 [place] [address] College, Nurse Annual Wellness Visit [address] [place] [address] Health Maintenance Due Date Last Done Comments COVID-19 Vaccine ( season) 2024 07/13/2023, 10/14/2022, 05/13/2022, Additional history exists Influenza Vaccine (FLU shot) (#1) 2024 06/16/2023, 06/18/2022, 06/25/2021, Additional history exists Adult Wellness Visit 09/10/2024 09/10/2023, 05/31/20 21 CKD PHOS USE SMARTSET 02368 09/22/202408/29, 09/12/2022, 05/26/2022, Additional history exists Depression Screening 09/22/2024 09/22/2023 Albumin/Creatinine Ratio 01/10/2025 024, 03/27/2023, 05/26/2022, Additional history exists CKD HGB USE SMARTSET 70736 03/18/202503/18, 03/18/2024, 03/27/2023, Additional history exists DTap/Tdap Vaccines (3 - Td or Tdap) 06/26/2033 06/26/2023, 05/16/2013 Pneumococcal Vaccine: 65+ Years Completed 05/20/2017, 10/25/2015, 05/12/2015 Zoster Vaccines Completed 08/19/2019, 05/30, 06/28/2007 HPV (Gardasil) Vaccine Aged Out No lo nger eligible based on patient's age to complete this topic Hepatitis B Vaccine Aged Out No longe r eligible based on patient's age to complete this topic MENINGOCOCCAL (MENACTRA/MENVEO) Aged Out No longer eligible based on patient's age to complete this topic documented as of this encounter Medical Devices Implanted Type Area Yard Operator Device Identifier Shelf Expiration Date Model / Serial / Lot Plug Mesh Small Hernia - [id number] Implanted:Qty: 1 on 12/28/2017 by Jorge Luis Krause MD at OR [facility] Right: Groin CR BARD : DAVOL 02/25/2019 [id number] / / [id number] documented as of this encounter Advance Directives Documents on File Type Date Recorded Patient Processing Tech Expl anation Advance Directives and Living Will 01/02/2023 ADVANCE DIRECTIVE / LIVING WILL Power of Coach Tour Driver 01/02/2023 POWER OF A TTORNEY Advance Directives and Living Will 11/27/2014 ADVANCE DIRECTIVE / LIVING WILL Power of Coach Tour Driver 11/27/2014 POWER OF A TTORNEY Healthcare Agents on File Name Relationship Healthcare Agent Relationshi p Communication uMkul French Adult Child Health Care Agen t (per Health Care Power of Coach Tour Driver document) Care Teams Dump Grounds Checker Relationship Specialty Start Date End Date Ranulfo Schumacher DO [address] [place] [facility] [address] PCP - General Internal Medicine 03/11/24 documented as of this encounter
--- OUTSIDE RECORDS SUMMARY | 2024-10-13 02:18 | External Medical Summary | Summary of Care ---
Author Name Unknown Organization [facility] Address [address] [place] [address] Phone [phone] Care Team Providers Care Dry Goods Clerk Name Role Phone Ranulfo Schumacher DO Primary Care Provider [phone] Reason for Visit * Reason Onset Date Comments Advice 05/16/202405/16 Encounter Details Date Type Department Care Team (Late st Contact Info) Description 05/16/2024 Telephone Family Practice 65 [facility] [address] [place] [address] Ranulfo Schumacher DO [address] [place] [address] Advice (05/16) Allergies Active Allergy Reactions Criticality Noted Date Comments Oxycodone 10/11/2020 caused heart to stopped--per patient documented as of this encounter (statuses as of 05/16/2024) Medications Medication Sig Dispensed Refills Start Date End Date Status ASPIRIN EC 81 MG PO TBEC Take 1 Tablet by mouth every evening. Active MULTI VITAMIN/MINERALS PO TABS Take 1 Tablet by mouth in the morning. Active PREVIDENT 5000 BOOSTER PLUS 1.1 % DT PSTE [place] onto teeth. Special tooth paste 09/28/2014 Active [...] EVERY MORNING 100 Tablet 3 01/01/2023 Active Pantoprazole Sodium 40 MG Oral Tablet Delayed Release (Protonix)Indicatio ns:Gastroesophageal reflux disease without esophagitis TAKE ONE TABLET BY MOUTH IN THE MORNING 90 Tablet 1 08/03/2023 08/02/2024 Active Albuterol Sulfate HFA 108 (90 Base) [...] twice daily 200 Tablet 1 04/25/2024 Active Molnupiravir 200 MG Oral CapsuleIndications: COVID-19 virus infection Take 4 Capsules by mouth in the morning and 4 Capsules before bedtime. Do all this for 5 days. 40 Capsule 05/16/2024 05/21/2024 Active documented as of this encounter (statuses as of 05/16/2024) Active Problems Problem Noted Date Diagnosed Date [...] as of this encounter (statuses as of 05/16/2024) Resolved Problems Problem Noted Date Diagnosed Date [...] as of this encounter (statuses as of 05/16/2024) Immunizations Name Administration Dates Next Due COVID-19 mRNA, LNP-s, No Pre serve, 2-Dose Series (Moderna) 07/17/2021,11/28/2020,11/01/2020 COVID-19, LNP-s, No Preserve , Cheng-sucrose, Ages 12+ ([employer]) 05/13/2022 COVID-19, MRNA-LNP, 23-24, P F, 30 [...] lent, No Preserve, IM 06/10/2016 Seasonal Influenza, Split, I IV3, With Preserve, Inj 05/30/2015,07/12/2014,06/18/2013,07/29 Seasonal Influenza, Trivalen t, Adjuvanted, 65+ yrs 06/25/2021,06/22/2019 TDAP (age 10 and older)(Boostrix) 06/26/2023, [...] encounter Miscellaneous Notes * Telephone Encounter - Jocy Maharaj LPN - 05/16/2024 4:53 PM EDT Call placed to daughter Radhika and notified her that prescriptions was sent to pharmacy. She acknowledged understanding. No questions at this time. * Telephone Encounter - Ranulfo Schumacher DO - 05/16/2024 4:48 PM EDT Molnupivir sent to pharmacy * Telephone Encounter - Jocy Maharaj LPN - 05/16/2024 4:36 PM EDT Please advise. * Telephone Encounter - Mirela Andrews OSA - 05/16/2024 4:20 PM EDT Mc tested positive for covid If calling something in ... [employer] * Telephone Encounter - Tamy Harper LPN - 05/16/2024 3:49 PM EDT Mc is coughing, getting worse as day goes on. Headache and fever. Advised to do home covid swab and call back. Thank you * Telephone Encounter - Mirela Andrews OSA - 05/16/2024 3:33 PM EDT Would like to speak to Tamy about Mc Said he is getting sick documented in this encounter Plan of Treatment Upcoming Encounters Date Type Department Care Team (Late st Contact Info) Description 05/24/2024 4:20 PM EDT Office Visit Family Practice [address] [place] [address] [place] [address] Ranulfo Schumacher DO [address] [place] [address] 06/09/2024 11:00 AM EDT Scheduled [facility] [address] [place] [address] [place], Nurse Phone Call Interventional Pain [place] [address] [place] 09/12/2024 2:00 PM EST Nurse Only Ancillary 65 [facility] 293 [facility], [place] [phone] College, Nurse Annual Wellness Visit 65 [facility] 293 [facility], [place] Health Maintenance Due Date Last Done Comments COVID-19 Vaccine ( season) 2023 07/13/2023, 10/14/2022, 05/13/2022, Additional history exists Influenza Vaccine (FLU shot) (#1) 2024 06/16/2023, 06/18/2022, 06/25/2021, Additional history exists Adult Wellness Visit 09/10/2024 09/10/2023, 05/31/20 21 CKD PHOS USE SMARTSET 91050 09/22/202408/29, 09/12/2022, 05/26/2022, Additional history exists Depression Screening 09/22/2024 09/22/2023 Albumin/Creatinine Ratio 01/10/2025 024, 03/27/2023, 05/26/2022, Additional history exists CKD HGB USE SMARTSET 81200 03/18/202503/18, 03/18/2024, 03/27/2023, Additional history exists DTaP,Tdap,and Td Vaccines (3 - Td or Tdap) 06/26/2033 [...] this encounter Medical Devices Implanted Type Area Power Washer Device Identifier Shelf Expiration Date Model / Serial / Lot Plug Mesh Small Hernia - [id number] Implanted:Qty: 1 on 12/28/2017 by Jorge Luis Krause MD at OR [facility] Right: Groin CR BARD : DAVOL 02/25/2019 [id number] / / [id number] documented as of this encounter Visit Diagnoses Diagnosis COVID-19 virus infection- Primary documented in this encounter Advance Directives Documents on File Type Date Recorded Patient Ec Teacher Expl anation Advance Directives and Living Will 01/02/2023 ADVANCE DIRECTIVE / LIVING WILL Power of Engagement Lead 01/02/2023 POWER OF A TTORNEY Advance Directives and Living Will 11/27/2014 ADVANCE DIRECTIVE / LIVING WILL Power of Engagement Lead 11/27/2014 POWER OF A TTORNEY Healthcare Agents on File Name Relationship Healthcare Agent Relationshi p Communication Mukul French Adult Child Health Care Agen t (per Health Care Power of Engagement Lead document) Care Teams Dry Goods Clerk Relationship Specialty Start Date End Date Ranulfo Schumacher DO [address] [place] [address] PCP - General Internal Medicine 03/11/24 documented as of this encounter
--- OUTSIDE RECORDS SUMMARY | 2024-10-13 02:18 | External Medical Summary | Summary of Care ---
Author Name Unknown Organization [facility] Address [address] [place] [address] Phone [phone] Care Team Providers Care Pet Walker Name Role Phone Ranulfo Schumacher DO Primary Care Provider [phone] Reason for Visit * Auth/Cert Specialty Diagnoses / Procedures Referred By Jennifer de la cruz Referred To Contact Diagnoses Lumbar radiculopathy Lumbar radiculopathy [M54.16] Procedures INJECT DX/THER SUBSTANCE INTERLAMINAR LUMBAR/SACRAL W IMAGE GUIDE INJECTION SPINE LUMBAR OR SACRAL John Ferrer DO [address] [place] [address] [facility] [address] [place] [address] Referral ID Status Reason Start Date Expiration Date Visits Re quested Visits Authorized [id number] Encounter Details Date Type Department Care Team (Latest Contact Info) Description 05/11/2024 11:33 AM EDT - 05/11/2024 1:09 PM EDT Hospital Encounter OR [facility], Operating Room [facility] [address] [place] [address] John Ferrer DO [address] [place] [address] Discharge Disposition: Home - Self Care Allergies Active Allergy Reactions Criticality Noted Date Comments Oxycodone 10/11/2020 caused heart to stopped--per patient documented as of this encounter (statuses as of 05/12/2024) Medications Medication Sig Dispensed Refills Start Date End Date Status ASPIRIN EC 81 MG PO TBEC Take 1 Tablet by mouth every evening. Active MULTI VITAMIN/MINERALS PO TABS Take 1 Tablet by mouth in the morning. Active PREVIDENT 5000 BOOSTER PLUS 1.1 % DT PSTE [place] onto teeth. Special tooth paste 09/28/2014 Active [...] twice daily 200 Tablet 1 04/25/2024 Active documented as of this encounter (statuses as of 05/12/2024) Active Problems Problem Noted Date Diagnosed Date [...] as of this encounter (statuses as of 05/12/2024) Resolved Problems Problem Noted Date Diagnosed Date [...] as of this encounter (statuses as of 05/12/2024) Immunizations Name Administration Dates Next Due COVID-19 mRNA, LNP-s, No Pre serve, 2-Dose Series (Moderna) 07/17/2021,11/28/2020,11/01/2020 COVID-19, LNP-s, No Preserve , Cheng-sucrose, Ages 12+ (Pfizer) 05/13/2022 COVID-19, MRNA-LNP, 23-24, P F, 30 MCG/0.3 mL, 12 YRS AND ABOVE, IM ([facility]) 07/13/2023 Covid-19, Mrna, Lnp-s, Pf, B [...] Sign Reading Time Taken Comments Blood Pressure 161/85 05/11/2024 1:02 PM EDT Pulse 78 05/11/2024 1:02 PM EDT Temperature 36.1 C (97 F) 05/11/2024 12:28 PM EDT Respiratory Rate 16 05/11/2024 1:02 PM EDT Oxygen Saturation 97% 05/11/2024 1:02 PM EDT Inhaled Oxygen Concentration - - Weight - - Height - - Body Mass Index - - documented in this encounter Discharge Instructions * Discharge Instr - AVS* John Ferrer DO - 05/11/2024 1:04 PM EDT [facility] [address] [place] [address] Discharge Date: 05/11/2024 You may call [facility] at [phone] during business hours. For after-hours emergencies call 911. Your attending physician at the time of your discharge was: John Ferrer DO [address] [place] [address] The information below provides you with the [...] or GO TO THE NEAREST EMERGENCY ROOM Keep a diary of your pain until seen in the office to help us determine how effective the injectionwas Do not restart physical therapy or chiropractic [...] unless otherwise instructed by your family physician, produce runner or the anticoagulation clinic. Additional Instructions: None Driving: You may resume driving in 12-24 hours if no weakness is noted Date you may return to work or school: N/A Follow Up: Please make a follow-up telephone appointment with our nursing staff in 4-6 weeks. documented in this encounter Progress Notes * John Ferrer DO - 05/11/2024 1:04 PM EDT [facility] [place] [address] [facility] [address] OUTPATIENT SURGERY DISCHARGE SUMMARY NOTE Name: Mor French Location: OR [facility]/[place] Date: 05/11/2024 Time: 1:04 PM Surgery Date: 05/11/2024 Procedure: INJECTION SPINE LUMBAR OR SACRAL No laterality found for procedure #1 Surgeon: John Ferrer DO Discharge Diagnosis: lumbar radicular pain and spinal stenosis After examination of this patient, I have determined he is ready for discharge to home when the patient meets criteria. Discharge instructions were given to the patient. John Ferrer DO OR [facility], Operating Room [facility] [address] [facility] [place] [address] documented in this encounter H&P Notes * John Ferrer DO - 05/11/2024 11:53 AM EDT Interventional Pain H&P Subjective: History of Present Illness: Mor French is a 84 year old year-old male with a past medical history significant for lumbar radicular pain who is presenting for to improve his pain and function. his [...] depression or rushed thoughts unless noted previously. Review of patient's allergies indicates: Allergen Reactions [...] the imaging and my findings were . FLUORO INTERVENTIONAL PAIN PROCEDURE NONBILLABLE This procedure will not be read by a Radiologist. Please see operative note. Objective Physical Exam: Vital Signs: There were no vitals taken for this visit. There is no height or weight on file to calculate BMI. General: No apparent distress. Eyes: pupils equal and round, sclera white, pupils midsize. ENT: mucous membranes moist Resp: Non-labored breathing CV: Extremities warm and well-perfused. Psych: Oriented; affect warm, insight good. Skin: No rashes or lesions appreciated on exposed skin Neuromuscular Exam: SLR pos, TTT over lumbar spine2 Assessment: Mor is a 84 year old year-old male with: Lumbar radicular pain Lumbar DDD Plan: The patient is undergoing L3/4 ZACHARY today to alleviate his pain and improve his function. The risks,benefits and alternatives to the procedure were reviewed at length and the patient was provided theopportunity to ask questions which were answered to their voiced understanding. Following this comprehensive discussion, the patient opted to proceed. The patient was consented to the procedure follo wing this comprehensive conversation. John Ferrer DO OR [facility], [facility] [address] [facility] [address] documented in this encounter Nursing Notes * Preethi Hernandez RN - 05/11/2024 1:04 PM EDT Patient tolerated pain injection well. Ready for discharge to home. * Ariela Salvador RN - 05/11/2024 12:59 PM EDT Band aid applied to area. Patient transferred to PACU 2 via wheelchair * Ariela Salvador RN - 05/11/2024 12:53 PM EDT Patient tolerating pain management injection well. documented in this encounter OR Notes * OR Surgeon - John Ferrer DO - 05/11/2024 1:01 PM EDT INTERLAMINAR LUMBAR EPIDURAL STEROID INJECTION DATE: 05/11/2024 PHYSICIAN: John Ferrer DO PREOPERATIVE DIAGNOSIS: Lumbar spondylosis with lumbar radiculopathy. POSTOPERATIVE DIAGNOSIS: Lumbar spondylosis with lumbar radiculopathy. PROCEDURE PERFORMED: L3/4 interlaminar epidural steroid injection on the right side. Fluoroscopy for precise needle placement. ANESTHESIA: Local infiltration with 1% lidocaine. MONITORS: Automatic blood pressure cuff, pulse oximetry. There was no farm assistant, EBL or drains placed during this procedure. INDICATIONS: I had the pleasure of seeing Mor French ([id number]) in the pain management clinic at the [facility] today. Mor French is a 84 year [...] towards the L3/4 interlaminar window in the right paramedian position. AP, contralateral oblique and lateral views were used to assess appropriate needle position. Loss of resistance to air technique was utilized and was obtained. The needle's position was additionally verified by injecting radiopaque dye, which showed spread of the dye in the epidural space in AP and lateral views. After negative aspiration for CSF and blood, 80 mg of Kenalog diluted in 2 mL of 1% lidocaine and 1mL of sterile PFNS was injected into the epidural space. The needle was withdrawn. The patient tolerated the procedure well. COMPLICATIONS: None. DISPOSITION: 1. Return to clinic in 1-2 months for follow-up evaluation, sooner as needed. 2. Resume activity as tolerated. 3. Patient can drive after 12-24 hours if no weakness noted. John Ferrer DO OR [facility], Operating Room [facility] [address] [facility] [place] [address] documented in this encounter Plan of Treatment Upcoming Encounters Date Type Department Care Team (Late st Contact Info) Description 05/24/2024 4:20 PM EDT Office Visit Family Practice [facility] [address] [place] [address] Ranulfo Schumacher DO [address] [place] [address] 06/09/2024 11:00 AM EDT Scheduled Telephone Interventional Pain Center, [facility] [address] [facility] [place] [address] Nurse Allan Phone Call Interventional Pain [facility] [address] [place] [address] 09/12/2024 2:00 PM EST Nurse Only Ancillary [facility] [address] Doug Nurse Annual Wellness Visit [address] [place] [address] Health Maintenance Due Date Last Done Comments COVID-19 Vaccine (2022- season) 2023 07/13/2023, 10/14/2022, 05/13/2022, Additional history exists Influenza Vaccine (FLU shot) (#1) 2024 06/16/2023, 06/18/2022, 06/25/2021, Additional history exists Adult Wellness Visit 09/10/2024 09/10/2023, 05/31/20 CKD PHOS USE SMARTSET 70705 09/22/202408/29, 09/12/2022, 05/26/2022, Additional history exists Depression Screening 09/22/2024 09/22/2023 Albumin/Creatinine Ratio 01/10/2025 024, 03/27/2023, 05/26/2022, Additional history exists CKD HGB USE SMARTSET 89168 03/18/202503/18, 03/18/2024, 03/27/2023, Additional history exists DTaP,Tdap,and [...] this encounter Medical Devices Implanted Type Area Helminthology Teacher Device Identifier Shelf Expiration Date Model / Serial / Lot Plug Mesh Small Hernia - [id number] Implanted:Qty: 1 on 12/28/2017 by Jorge Luis Krause MD at OR [facility] Right: Groin CR BARD : DAVOL 02/25/2019 [id number] / / [id number] documented as of this encounter Procedures Procedure Name Priority Date/Time Associated Diagnosis Comments FLUORO INTERVENTIONAL PAIN PROCEDURE NONBILLABLE Routine 05/11/2024 1:07 PM EDT documented in this encounter Results * FLUORO INTERVENTIONAL PAIN PROCEDURE NONBILLABLE (05/11/2024 1:07 PM EDT) Narrative Scheduling, Silent - 05/11/2024 1:08 PM EDT This procedure will not be read by a Radiologist. Please see operative note. John Marc Nabil MADDOX RAD FLUOROSCOPY documented in this encounter Administered Medications Inactive Administered Medications - up to 3 most recent administrations Medication Order MAR Action Action Date Dose Rate Site Iohexol (Omnipaque 180) inj 1 mL 1 mL, Injection, ONCE, On Thu05/11/24 at 1300, For 1 dose Given 05/11/2024 12:55 PM EDT 1 mL lidocaine 1 % inj 20 mg 20 mg (2 mL), Subcutaneous, ONCE, On Thu05/11/24 at 1300, For 1 dose Given 05/11/2024 12:52 PM EDT 5 mL Other-Specify Triamcinolone Acetonide (Kenalog) 40 MG/ML inj 40 mg 40 mg, Injection, ONCE, On Thu05/11/24 at 1300, For 1 dose Given 05/11/2024 12:56 PM EDT 80 mg documented in this encounter Active and Recently Administered Medications Times are shown in EDT. Scheduled Medication Order 05/09/2024 05/10/2024 05/11/2024 Iohexol (Omnipaque 180) inj 1 mL (COMPLETED) 1 mL, Injection, ONCE, On Thu05/11/24 at 1300, For 1 dose 1255 (Given - Provid er: Ariela Salvador RN) lidocaine 1 % inj 20 mg (COMPLETED) 20 mg (2 mL), Subcutaneous, ONCE, On Thu05/11/24 at 1300, For 1 dose 1252 (Given - Provid er: Ariela Salvador RN) Triamcinolone Acetonide (Kenalog) 40 MG/ML inj 40 mg (COMPLETED) 40 mg, Injection, ONCE, On Thu05/11/24 at 1300, For 1 dose 1256 (Given - Provid er: Ariela Bertha Boonie, RN) documented in this encounter Advance Directives Documents on File Type Date Recorded Patient Mine Wedge Sawyer Expl anation Advance Directives and Living Will 01/02/2023 ADVANCE DIRECTIVE / LIVING WILL Power of Truss Puller Helper 01/02/2023 POWER OF A TTORNEY Advance Directives and Living Will 11/27/2014 ADVANCE DIRECTIVE / LIVING WILL Power of Truss Puller Helper 11/27/2014 POWER OF A TTORNEY Healthcare Agents on File Name Relationship Healthcare Agent Relationshi p Communication Mukul Gillian Adult Child Health Care Agen t (per Health Care Power of Truss Puller Helper document) Care Teams Pet Walker Relationship Specialty Start Date End Date Ranulfo Schumacher DO [address] [place] [address] PCP - General Internal Medicine 03/11/24 documented as of this encounter
--- OUTSIDE RECORDS SUMMARY | 2024-10-13 02:18 | External Medical Summary | Summary of Care ---
Author Name Unknown Organization [facility] Address [address] [place] [address] Phone [phone] Care Team Providers Care Assembly Line Upholsterer Name Role Phone Charity Schumacher DO Primary Care Provider [phone] Reason for Visit * Reason Comments Medication Refill Encounter Details Date Type Department Care Team (Late st Contact Info) Description 05/16/2024 Refill Family Practice [address] [place] [address] [place] [address] Charity Schumacher DO [address] [place], [place] [id number] Gastroesophageal reflux disease without esophagitis Allergies Active Allergy Reactions Criticality Noted Date Comments Oxycodone 10/11/2020 caused heart to stopped--per patient documented as of this encounter (statuses as of 05/17/2024) Medications Medication Sig Dispensed Refills Start Date End Date Status ASPIRIN EC 81 MG PO TBEC Take 1 Tablet by mouth every evening. Active MULTI VITAMIN/MINERALS PO TABS Take 1 Tablet by mouth in the morning. Active PREVIDENT 5000 BOOSTER PLUS 1.1 % DT PSTE [place] onto teeth. Special tooth paste 09/28/2014 Active [...] daily. Active Carvedilol 6.25 MG Oral Tablet (Coreg)Indications [...] 1 04/25/2024 Active Molnupiravir 200 MG Oral CapsuleIndications :COVID-19 virus infection Take 4 Capsules by mouth in the morning and 4 Capsules before bedtime. Do all this for 5 days. 40 Capsule 05/16/2024 4 Active Pantoprazole Sodium 40 MG Oral Tablet Delayed Release (Protonix)Indicati ons:Gastroesophage al reflux disease without esophagitis TAKE ONE TABLET BY MOUTH IN THE MORNING 90 Tablet 1 05/17/2024 5 Active Pantoprazole Sodium 40 MG Oral Tablet Delayed Release (Protonix)Indicati ons:Gastroesophage al reflux disease without esophagitis TAKE ONE TABLET BY MOUTH IN THE MORNING 90 Tablet 1 08/03/2023 4 Discontinue d(Refill) documented as of this encounter (statuses as of 05/17/2024) Active Problems Problem Noted Date Diagnosed Date [...] as of this encounter (statuses as of 05/17/2024) Resolved Problems Problem Noted Date Diagnosed Date [...] as of this encounter (statuses as of 05/17/2024) Immunizations Name Administration Dates Next Due COVID-19 [...] No 09/22/2023 Does the household have a [facility] health care services[facility] source of income? (Household - for ages [...] encounter Miscellaneous Notes * Telephone Encounter - Natalie Ramírez [facility] - 05/17/2024 7:02 AM EDT Signed Prescriptions: Disp Refills Pantoprazole Sodium 40 MG Oral Tablet Shreya*90 Tab*1 Sig: TAKE ONE TABLET BY MOUTH IN THE MORNINGAuthorizing Provider: [facility] User: SAJI RAMÍREZ documented in this encounter Plan of Treatment Upcoming Encounters Date Type Department Care Team (Late st Contact Info) Description 05/24/2024 4:20 PM EDT Office Visit Family Practice [address] [address] Charity Schumacher, [address] [place] [address] 06/09/2024 11:00 AM EDT Scheduled Telephone Interventional Pain Center, [facility] [address] [place] [address] [facility] 132 [place] [address] 09/12/2024 2:00 PM EST Nurse Only Ancillary [address] [place] [address] [place], Nurse Annual Wellness Visit [address] [place] [address] Health Maintenance Due Date Last Done Comments COVID-19 Vaccine (2022- season) 2023 07/13/2023, 10/14/2022, 05/13/2022, Additional history exists Influenza Vaccine (FLU shot) (#1) 2024 06/16/2023, 06/18/2022, 06/25/2021, Additional history exists Adult Wellness Visit 09/10/2024 09/10/2023, 05/31/20 CKD PHOS USE SMARTSET 79581 09/22/202408/29, 09/12/2022, 05/26/2022, Additional history exists Depression Screening 09/22/2024 09/22/2023 Albumin/Creatinine Ratio 01/10/2025 024, 03/27/2023, 05/26/2022, Additional history exists CKD HGB USE SMARTSET 34573 03/18/202503/18, 03/18/2024, 03/27/2023, Additional history exists DTaP,Tdap,and [...] encounter Medical Devices Implanted Type Area Assistant Professor Of Communication Device Identifier Shelf Expiration Date Model / Serial / Lot Plug Mesh Small Hernia - [id number] Implanted:Qty: 1 on 12/28/2017 by Jorge Luis Krause MD at OR [facility] Right: Ksenia CORDON BARD : DAVOL 02/25/2019 [id number] / / [id number] documented as of this encounter Visit Diagnoses Diagnosis Gastroesophageal reflux disease without esophagitis Esophageal reflux documented in this encounter Advance Directives Documents on File Type Date Recorded Patient Senior Hr Business Partner Expl anation Advance Directives and Living Will 01/02/2023 ADVANCE DIRECTIVE / LIVING WILL Power of Public Affairs Specialist 01/02/2023 POWER OF A TTORNEY Advance Directives and Living Will 11/27/2014 ADVANCE DIRECTIVE / LIVING WILL Power of Public Affairs Specialist 11/27/2014 POWER OF A TTORNEY Healthcare Agents on File Name Relationship Healthcare Agent Relationshi p Communication Mukul French Adult Child Health Care Agen t (per Health Care Power of Public Affairs Specialist document) Care Teams Assembly Line Upholsterer Relationship Specialty Start Date End Date Charity Schumacher DO [address] [facility] [place] [address] PCP - General Internal Medicine 03/11/24 documented as of this encounter
--- OUTSIDE RECORDS SUMMARY | 2024-10-13 02:18 | External Medical Summary | Summary of Care ---
Author Name Unknown Organization [facility] Address [address] [place] [address] Phone [phone] Care Team Providers Care Nailhead Setter Name Role Phone Charity Schumacher DO Primary Care Provider [phone] Reason for Visit * Reason Comments Medication Refill Encounter Details Date Type Department Care Team (Late st Contact Info) Description 04/23/2024 Refill Family Practice [address] [place] [address] [place] [address] Cahrity Schumacher DO [address] [place] [address] Vertigo Allergies Active Allergy Reactions Criticality Noted Date Comments Oxycodone 10/11/2020 caused heart to stopped--per patient documented as of this encounter (statuses as of 04/25/2024) Medications Medication Sig Dispensed Refills Start Date End Date Status ASPIRIN EC 81 MG PO TBEC Take 1 Tablet by mouth every evening. Active MULTI VITAMIN/MINERALS PO TABS Take 1 Tablet by mouth in the morning. Active PREVIDENT 5000 BOOSTER PLUS 1.1 % DT PSTE [place] onto teeth. Special tooth paste 09/28/2014 Active [...] THE MORNING 90 Tablet 1 08/03/2023 4 Active Albuterol Sulfate HFA 108 (90 Base) [...] HCl 12.5 MG Oral Tablet (Antivert)Indicati ons:Vertigo Take 1 Tablet by mouth 2 times a day. 200 Tablet 1 04/25/2024 Active Meclizine HCl 12.5 MG Oral Tablet (Antivert)Indicati ons:Vertigo Take 1 Tablet by mouth 2 times a day. 200 Tablet 1 10/06/2023 4 Discontinue d(Refill) documented as of this encounter (statuses as of 04/25/2024) Active Problems Problem Noted Date Diagnosed Date [...] as of this encounter (statuses as of 04/25/2024) Resolved Problems Problem Noted Date Diagnosed Date [...] as of this encounter (statuses as of 04/25/2024) Immunizations Name Administration Dates Next Due COVID-19 mRNA, LNP-s, No Pre serve, 2-Dose Series (Moderna) 07/17/2021,11/28/2020,11/01/2020 COVID-19, LNP-s, No Preserve , Cheng-sucrose, Ages 12+ ([employer]) 05/13/2022 COVID-19, MRNA-LNP, 23-24, P F, 30 [...] Telephone Encounter - Charity Schumacher DO - 04/25/2024 11:14 AM EDTSigned Prescriptions: Disp Refills Meclizine HCl 12.5 MG Oral Tablet (Antiver*200 Ta*1 Sig: Take 1 Tablet by mouth 2 times a day. Authorizing Provider: CHARITY SCHUMACHER * Telephone Encounter - Aniya Swain [facility] - 04/25/2024 8:16 AM EDTPending Prescriptions: Disp Refills Meclizine HCl 12.5 MG Oral Tablet (Antiver*200 Ta*1 Sig: Take 1 Tablet by mouth 2 times a day. * Telephone Encounter - Aniya Swain [facility] - 04/25/2024 8:16 AM EDT Unable to authorize medication refills for pended medication(s) at this time. Part of the protocol criteria used for refill authorization was not satisfied. Patient is over 65 years of age. Please approve if appropriate. Thanks, Aniya Swain Clinical Pharmacist [facility] [phone] 04/25/2024, 8:16 AM * Telephone Encounter - Aniya Swain [facility] - 04/25/2024 8:16 AM EDT Did you pend patient's preferred pharmacy and medication before forwarding?yes Pharmacy: [facility] Pending Prescriptions: Disp Refills Meclizine HCl 12.5 MG Oral Tablet (Antive*200 Ta*1 Sig: Take 1 Tablet by mouth 2 times a day. Last Visit: 03/18/2024 (in office), Visit date not found (telemedicine) Next Visit: 05/24/2024 If no future appointments scheduled, and last appointment is greater than a year ago, please schedule patient for a follow-up appointment Last date the medication was ordered: 10/06/23 Is this request for a controlled substance?No Urine Drug Screen: Results for orders placed [...] Labs: Lab Results Component Value Date/Time CREAT 1.4 (H) 03/18/2024 03:59 PM CREAT 1.3 (H) 08/28/2020 12:32 PM POTASSIUM 4.4 03/18/2024 03:59 PM POTASSIUM 4.7 08/28/2020 12:32 PM TSH 3.34 05/26/2022 02:37 PM TSH 2.85 10/11/2019 10:18 AM LDLCALC 78 03/27/2023 12:32 PM LDLCALC 151 (H) 03/28/2019 09:08 AM LDLDIRECT 89 03/18/2024 03:59 PM LDLDIRECT NOT APPLICABLE 03/28/2019 09:08 AM ALT 14 03/18/2024 03:59 PM ALT 8 (L) 07/17/2020 03:51 PM HGBA1C 5.6 03/27/2023 12:32 PM documented in this encounter Plan of Treatment Upcoming Encounters Date Type Department Care Team (Latest Contact Info) Description 05/11/2024 12:30 PM EDT Hospital Encounter [facility] [address] [place] [address] John Ferrer DO [address] [place] [phone] 05/11/2024 12:30 PM EDT - 05/11/2024 12:55 PM EDT Surgery OR [facility] [address] [place] [phone] John Ferrer, DO [address] [place] [address] INJECTION SPINE LUMBAR OR SACRAL 05/24/2024 4:20 PM EDT Office Visit Family Practice [address] [facility] [address] [place] [address] Charity Schumacher, [address] [place] [address] 09/12/2024 2:00 PM EST Nurse Only Ancillary [address] [facility] [address] [place] [address] College, Nurse Annual Wellness Visit [address] [place] [address] Scheduled Procedures Name Priority Associated Diagnoses Date/Ti me INJECTION SPINE LUMBAR OR SACRAL Lumbar radiculopathy 05/11/2024 12:30 PM EDT Health Maintenance Due Date Last Done Comments COVID-19 Vaccine ( season) 2023 07/13/2023, 10/14/2022, 05/13/2022, Additional history exists Influenza Vaccine (FLU shot) (#1) 2024 06/16/2023, 06/18/2022, 06/25/2021, Additional history exists CKD PHOS USE SMARTSET 76374 09/22/202408/29, 09/12/2022, 05/26/2022, Additional history exists Depression Screening 09/22/2024 09/22/2023 Albumin/Creatinine Ratio 01/10/2025 024, 03/27/2023, 05/26/2022, Additional history exists CKD HGB USE SMARTSET 51835 03/18/202503/18, 03/18/2024, 03/27/2023, Additional history exists DTaP,Tdap,and [...] this encounter Medical Devices Implanted Type Area Household Manager Device Identifier Shelf Expiration Date Model / Serial / Lot Plug Mesh Small Hernia - [id number] Implanted:Qty: 1 on 12/28/2017 by Jorge Luis Krause MD at OR [facility] Right: Groin CR BARD : DAVOL 02/25/2019 [id number] / / [id number] documented as of this encounter Visit Diagnoses Diagnosis Vertigo Dizziness and giddiness Lumbar radiculopathy Thoracic or lumbosacral neuritis or radiculitis, unspecified documented in this encounter Advance Directives Documents on File Type Date Recorded Patient Reproduction Artist Expl anation Advance Directives and Living Will 01/02/2023 ADVANCE DIRECTIVE / LIVING WILL Power of Automobile Sales Consultant 01/02/2023 POWER OF A TTORNEY Advance Directives and Living Will 11/27/2014 ADVANCE DIRECTIVE / LIVING WILL Power of Automobile Sales Consultant 11/27/2014 POWER OF A TTORNEY Healthcare Agents on File Name Relationship Healthcare Agent Relationshi p Communication Mukul Gillian Adult Child Health Care Agen t (per Health Care Power of Automobile Sales Consultant document) Care Teams Nailhead Setter Relationship Specialty Start Date End Date Charity Schumacher DO [address] [place] [address] PCP - General Internal Medicine 03/11/24 documented as of this encounter
[2024-10-13 04:15] VITALS: RESP 16
[2024-10-13 07:57] LABS: Anion Gap 7 (3-11); BUN Creatinine Ratio 15.3 (10-20); Blood Urea Nitrogen 18 mg/dl (6-23); C Reactive Protein < 0.50 mg/dl (0-0.5); Calcium 8.8 mg/dl (8.6-10.3); Carbon Dioxide 23 mmol/L (21-32); Chloride 105 mmol/L (98-107); Chol HDL Ratio 2.7 (0-5); Cholesterol 128 mg/dl (0-200); Creatinine Clr Calc Pharmacy 40.6 ml/min; Glucose 93 mg/dl (70-99(Fasting)); HDL Cholesterol 47 mg/dl; LDL Cholesterol Calculated 67 mg/dl; Magnesium 2.1 mg/dl (1.7-2.4); Potassium 4.3 mmol/L (3.5-5.1); Sodium 135 mmol/L (136-145); Triglycerides 72 mg/dl (0-150); VLDL Cholesterol 14 mg/dl (0-30)
[2024-10-13] MEDS: CITALOPRAM 20 MG TAB PO SCH (08:31)
[2024-10-13] MEDS: ASPIRIN 81 MG ECTAB PO SCH (08:31)
[2024-10-13] MEDS: PANTOprazole 40 MG TAB PO SCH (08:31)
--- NOTE | 2024-10-13 09:35 | Hospitalist Progress Note ---
Date of Service October 13, 2024 Assessment & Plan (1) Complete left bundle branch block: (2) Dyspnea on minimal exertion: (3) Anginal equivalent: Plan: Patient presents to the emergency room with progressive dyspnea and chest tightness over the past 4 to 6 weeks. EKG on admission shows normal sinus rhythm with left bundle branch block High-sensitivity troponin x 3 is negative Chest x-ray on admission did not show any acute finding Cardiology consulted for possible stress test/ischemic workup. plan for lexiscan today Continue on aspirin, Lipitor. Coreg currently on hold (4) History of CVA (cerebrovascular accident): Plan: Continue on aspirin, Lipitor (5) History of pulmonary embolism: Plan: Continue on Eliquis (6) CKD (chronic kidney disease) stage 3, GFR 30-59 ml/min: Plan: Creatinine at baseline, monitor (7) Cancer: Plan: Reported history of lung and prostate cancer, treated surgically (8) Mixed Alzheimer's and vascular dementia: Plan: Monitor for delirium (9) Paroxysmal atrial fibrillation: Plan: Continue telemonitoring, Eliquis Plan DNR/DNI DVT prophylaxis Eliquis Discussed with daughter at bedside. Time spent evaluating patient, direct bedside care, chart review, placing orders, interpretation of diagnostic studies, discussion with consultants, patient, and family members, as well as other required patient management activities is 50 minutes Please note the above document was generated using voice recognition software. It may contain grammatical, syntax or spelling errors. Any formal questions or concerns about the content, text or information contained within the body of this dictation should be directly addressed to the provider for clarification Admission and Anticipated Discharge Date Admission Date: October 12, 2024 Subjective Patient seen and examined at bedside. He is comfortable; not in distress. He denies any chest pain, palpitation. No significant events overnight Review of Systems Review of Systems: All systems reviewed & are unremarkable except as noted in Subjective Physical Exam Physical Exam: Constitutional: Awake, comfortable, not in in distress. Respiratory: normal respiratory effort, lungs clear to auscultation, no wheeze, rales, rhonchi. Normal insp/exp effort, no accessory muscle use Cardiovascular: RRR, no murmur, no edema Vessels: no JVD or carotid bruit Chest: normal inspection of chest Abdomen: normal bowel sounds, soft, nontender, no hepatosplenomegaly Musculoskeletal: no cyanosis or clubbing, extremities motor strength 5/5 Skin: no rashes, warm and dry normal turgor Neurologic: PERRL, EOMI, accommodation nl, no face palsy, no dysarthria CN's II- XI intact bilaterally and moves all extremities Results & Data Results & Data Vital Signs (Past 12 Hours) Vital Signs Temp Pulse Pulse Resp BP Pulse Ox O2 Del Method 10/13/24 09:25 78 10/13/24 07:50 36.4 C L 75 16 131/69 93 Room Air 10/13/24 03:46 68 16 120/67 95 Room Air 10/12/24 22:57 76 144/63 H 10/12/24 22:26 74 10/12/24 22:15 Room Air 10/12/24 22:01 36.5 C 78 18 196/77 H 98 Room Air (6) CKD (chronic kidney disease) stage 3, GFR 30-59 ml/min Chronic kidney disease stage 3 subtype: unspecified whether 3a or 3b Qualified Code(s): N18.30 - Chronic kidney disease, stage 3 unspecified
[2024-10-13] MEDS ORDERED: REGADENOSON 0.4 MG/5 ML SYR IV ONE (11:49)
--- NOTE | 2024-10-13 14:11 | Cardiology Consultation ---
Date of Consultation October 13, 2024 Assessment & Plan (1) Dyspnea on minimal exertion: (2) Complete left bundle branch block: (3) Mixed Alzheimer's and vascular dementia: High sensitive troponin x 3 negative thus far. Patient is euvolemic on exam. Patient did undergo a pharmacologic myocardial perfusion imaging study which is the noninvasive test of choice in this case given the findings of intermittent left bundle branch block. Patient had a recent outpatient echocardiogram for the same symptom on 09/22/2024 and I do not think this needs to be repeated at present. Continue outpatient medications including aspirin, Eliquis, atorvastatin. Further recommendations be forthcoming after stress test. Will plan on resuming his Carvedilol after the stress test.This is a chronic medication that he has been on for many years. History of Present Illness Attending Physician: Karl Valles MD History of Present Illness Mr French is an 84 year old male seen in cardiology consultation per the request of Dr Paul for the evaluation of shortness of breath with exertion and new left bundle branch block. Interview with patient is limited due to the presence of underlying dementia. History for the most part obtained from review of his chart and discussion with his daughter who is at the bedside. She describes that he has had progressive issues with dementia over the last few months and now requires 24-hour care. She and another sibling have been taking turns. She actually lives in [place] and is planning on staying for 3 months with her father. The patient's spouse was recently admitted to long term facility. He has been observed to have difficulty with breathing. He is not able to express specifics about his symptoms but others observed him to be tachypneic per description. During my interview with the patient the patient had no subjective complaints. Past cardiac history is notable for unprovoked pulmonary emboli as well as history of strokes. He had previously undergone implantation of a loop recorder and been found to have frequent episodes of SVT versus paroxysmal atrial fibrillation and therefore has been transition to Eliquis for stroke prophylaxis. Per review of his outpatient chart, his loop recorder battery reached end-of-life in April, and therefore no additional data is available from the device. Allergies Allergy/AdvReac Type Severity Reaction Status Date / Time oxycodone AdvReac Severe became Verified 10/12/24 20:52 apneic and bradycardic Home Medications Medication Instructions Recorded Confirmed Type citalopram 20 mg tablet 20 mg PO QAM 08/31/18 10/12/24 History pantoprazole 40 mg tablet,delayed 40 mg PO QAM 08/31/18 10/12/24 History release carvedilol 6.25 mg tablet 6.25 mg PO QAM 03/09/20 10/12/24 History gabapentin 100 mg capsule 100 mg PO BID 03/09/20 10/12/24 History aspirin 81 mg tablet,delayed 81 mg PO QAM 07/04/20 10/12/24 History release albuterol sulfate 90 mcg/actuation 2 puff inhalation Q6 PRN Shortness 07/07/20 10/12/24 History aerosol inhaler Of Breath Or Wheezing atorvastatin 40 mg tablet 40 mg PO HS 10/04/20 10/12/24 History cholecalciferol (vitamin D3) 25 25 mcg PO QAM 10/04/20 10/12/24 History mcg (1,000 unit) tablet polyethylene glycol 3350 17 gram 17 g PO DAILY PRN Constipation 12/11/20 10/12/24 History oral powder packet apixaban 5 mg tablet (Eliquis) 5 mg PO AMHS 10/12/24 10/12/24 History benzonatate 100 mg capsule 100 mg PO TID PRN Cough 10/12/24 10/12/24 History hydrocodone 5 mg-acetaminophen 325 1 tab PO Q6 PRN Mild Pain (Scale 10/12/24 10/12/24 History mg tablet Score 1-4) magnesium oxide 400 mg PO HS 10/12/24 10/12/24 History meclizine 12.5 mg tablet 12.5 mg PO BID 10/12/24 10/12/24 History multivitamin with minerals 1 cap PO DAILY 10/12/24 10/12/24 History Patient History Medical History On anticoagulant therapy Pulmonary embolism hospitalized 03/12/2020-03/15/2020 [facility] w/ BL PE; unk etiology; on coumadin Degenerative disc disease Osteoarthritis GERD (gastroesophageal reflux disease) Cancer LUNG AND PROSTATE CANCER, both treated surgically Asthma Using albuterol inhaler TID now since PEs. Previously wasn't using inhaler at all. Surgical History History of cataract surgery LEFT/RIGHT History of carpal tunnel release RT X 2 LEFT X 3 History of laminectomy LUMBAR History of prostatectomy History of esophagogastroduodenoscopy (EGD) History of colonoscopy History of herniorrhaphy RT INGUINAL History of lobectomy of lung RT MIDDLE LOBE History of tooth extraction History of tonsillectomy History of adenoidectomy Family History Father FHx: prostate cancer Grandfather (Paternal) FHx: prostate cancer Social History Smoking Status: Former smoker Tobacco Type: Cigars Second Hand Exposure: No; Do You Dip or Chew Tobacco: No; Hx Alcohol Use: No Hx Substance Use: No Preferred Language: Yi Communication Ability: Effective 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 Beliefs That Will Affect Care: None marital status: Current Living Situation: Family Current Living Situation Comment: daughter is living with him currently Other Information That Helps Us Care for You: No Feels Safe at Home: Yes Safety Concerns: Feels Safe At This Time Assistive Devices: Cane and Walker Review of Systems Review of Systems: Unobtainable due to cognitive status Physical Exam Physical Exam: General: no acute distress and stated age Eyes: conjunctiva are pink and non-injected, sclera clear Neck: normal jugular venous pulse, no hepatojugular reflux Chest: normal shape and normal respiratory effort Lungs: clear to auscultation and percussion Cardiac Exam: - regular heart sounds, no murmurs, rubs, or gallops, no jugular venous distention Abdomen: abdomen soft, non-tender, no abnormal masses and no hepatosplenomegaly Musculoskeletal: no gait disturbance, no weakness Extremities: no edema and no cyanosis Neuro:awake, conversant, follows commands, no focal motor deficits Results & Data Vital Signs (Past 12 Hours) Vital Signs Temp Pulse Pulse Resp BP Pulse Ox O2 Del Method 10/13/24 09:30 Room Air 10/13/24 09:25 78 10/13/24 07:50 36.4 C L 75 16 131/69 93 Room Air 10/13/24 03:46 68 16 120/67 95 Room Air Laboratory Results Cardiac Enzymes 10/12/24 10/12/24 10/12/24 Range/Units 17:28 19:31 22:31 AST 20 (13-39) U/L Troponin I High Sens 10.3 9.6 7.6 (0-20) pg/ml Coagulation 10/12/24 Range/Units 17:28 PT 11.9 (9.0-12.0) Seconds APTT 27 (21-31) Seconds Lipids 10/13/24 Range/Units 07:19 Triglycerides 72 (0-150) mg/dl Cholesterol 128 (0-200) mg/dl HDL Cholesterol 47 mg/dl Cholesterol/HDL Ratio 2.7 (0-5) CBC 10/12/24 Range/Units 17:28 WBC 12.22 H (4.8-10.8) K/ul RBC 4.68 L (4.70-6.10) M/uL Hgb 12.3 L (14.0-18.0) g/dl Hct 38.2 L (42.0-52.0) % Plt Count 328 (130-400) K/uL Neut # (Auto) 8.20 H (1.40-6.50) K/uL Lymph # (Auto) 2.68 (1.20-3.40) K/uL [place] # (Auto) 1.12 H (0.11-0.59) K/uL Eos # (Auto) 0.10 (0.00-0.50) K/uL Baso # (Auto) 0.04 (0.00-0.20) K/uL Comprehensive Metabolic Panel 10/12/24 10/13/24 Range/Units 17:28 07:19 Sodium 136 135 L (136-145) mmol/L Potassium 4.1 4.3 (3.5-5.1) mmol/L Chloride 103 105 (98-107) mmol/L Carbon Dioxide 25 23 (21-32) mmol/L BUN 18 18 (6-23) mg/dl Creatinine 1.30 1.18 (0.6-1.4) mg/dl Glucose 87 93 (70-99(Fasting)) mg/dl Calcium 9.2 8.8 (8.6-10.3) mg/dl AST 20 (13-39) U/L ALT 20 (7-52) U/L Alkaline Phosphatase 88 (34-104) U/L Total Protein 7.0 (6.0-8.3) gm/dl Albumin 4.1 (3.4-5.0) gm/dl Intake and Output 10/12/24 10/13/24 10/13/24 22:59 06:59 14:59 Intake Total 100 / 100 Balance 100 / 100 Intake: Oral 100 / 100 Other: Other Intake Source NPO # Unmeasured Voids 1 Weight 69 kg 69 kg Weight Measurement Method Standing Scale Standing Scale Diagnostic Findings Portable chest x-ray performed 10/12/2024: Radiology report describes bilateral pulmonary scarring, per my interpretation, somewhat technical limited film with poor inspiratory effort. No pleural effusions. EKG performed 10/12/2024 at 1725 revealed normal sinus rhythm at 77 bpm with left axis deviation, left bundle branch block, QRS duration 120 ms. Compared to the previous tracing performed in 2020, left bundle branch block is new. Compared to recent outpatient EKG performed 08/30/2024, sinus rhythm at 75 bpm observed at that time, normal QRS duration without left bundle branch block noted at that time, QRS duration 174 ms. No significant repolarization abnormalities. Summary of outpatient transthoracic echocardiogram performed 09/22/2024: The LV wall thickness is normal. The left ventricular wall motion is normal. The qualitative LV ejection fraction is 60-64% (normal). The left ventricular diastolic function is mildly abnormal (grade I). Mild tricuspid regurgitation is present. Normal IVC size and collapsability with sniff indicates a normal right atrial pressure of 3 mmHg. There is no evidence of pulmonary hypertension.
[2024-10-13] MEDS: carvediloL 6.25 MG TAB PO SCH (14:49)
[2024-10-13 15:57] VITALS: BP 150/80; PULSE 83; TEMP 97.9; O2SAT 97
--- NOTE | 2024-10-13 16:19 | Discharge Summary ---
Date of Service October 13, 2024 Admission HPI Per Admitting Provider Patient is an 84-year-old gentleman who lives independently, his currently resides at [facility]. His daughter is with him at all times in his home. He normally ambulates with a rollator. About 4 to 6 weeks ago started noticing have some more shortness of breath and chest tightness with activity and when he is trying to ambulate around his house. He was seen by his outpatient provider. Had echocardiogram and EKG done at that time. Echocardiogram showed normal ejection fraction with no significant wall motion abnormalities. EKG was sinus rhythm and specifically did not show a left bundle branch block. He was instructed by his primary care provider if they noticed that he continued to have shortness of breath he should come to the emergency room for evaluation. Over the last 4 weeks it seems as though that he he has gotten more short of breath with activity and the symptoms occur more often called the PCP today who recommended evaluation in the emergency department. In the emergency room workup really unremarkable. With the exception of a new left bundle branch block seen on EKG. due to his progressive symptoms and new findings on EKG was referred for further evaluation. Time my evaluation patient is asymptomatic. He denies any fever or chills, no cough or cold symptoms. Describes it as shortness of breath mostly with exertion but occasionally while he is sitting at rest. Daughter at bedside also states that he sometimes complains of chest tightness but no real pain or pressure. He denies any nausea or vomiting. No new problems with his bowels or bladder. Has been eating and drinking well. No swelling in his hands arms legs or feet. Principal Diagnosis Chest pain, ACS ruled out Discharge Data Allergies Allergy/AdvReac Type Severity Reaction Status Date / Time oxycodone AdvReac Severe became Verified 10/12/24 20:52 apneic and bradycardic Consultations 10/12/24 19:36 ED Decision to Admit Stat 10/12/24 22:03 Consult Cardiology Routine Hospital Course (1) Complete left bundle branch block: (2) Dyspnea on minimal exertion: (3) Anginal equivalent: (4) History of CVA (cerebrovascular accident): (5) History of pulmonary embolism: (6) CKD (chronic kidney disease) stage 3, GFR 30-59 ml/min: (7) Cancer: (8) Mixed Alzheimer's and vascular dementia: (9) Paroxysmal atrial fibrillation: Plan Patient presents to the emergency room with progressive dyspnea and chest tightness over the past 4 to 6 weeks. EKG on admission shows normal sinus rhythm with left bundle branch block High-sensitivity troponin x 3 is negative Chest x-ray on admission did not show any acute finding Cardiology consulted for possible stress test/ischemic workup. Patient underwent Lexiscan which was within normal limits No changes to the medication regimen was done at the time of the discharge. Please note the above document was generated using voice recognition software. It may contain grammatical, syntax or spelling errors. Any formal questions or concerns about the content, text or information contained within the body of this dictation should be directly addressed to the provider for clarification Total Time Total Time Spent Total Time Spent (In Minutes): 35 Total Time Includes: Examination of the Patient, Discharge Planning, Medication Reconciliation, Communication With Other Providers and Other Discharge Plan Discharge Items Patient Disposition: Home - Self-Care Reason For Visit: DYSPNEA Discharge Diagnosis: Chest pain, ACS ruled out Activity: Resume your previous activity Non-emergency contact: Primary Care Provider Call non-emergency contact if: you have any medication questions and your symptoms worsen Follow-up/Referrals: Ranulfo Schumacher, [Primary Care Provider] - Diet: Regular Addtl Attending Provider Instructions: You were admitted to the hospital and underwent stress test which was normal. Please continue to take your medications as prescribed before. An appointment will be set up with your PCP for follow up Pending Studies at Discharge: No Stand-Alone Forms: My Attenex, Smoking Cessation Medications and DC Order Prescriptions: Continued carvedilol 6.25 mg Tablet 6.25 mg PO QAM gabapentin 100 mg Capsule 100 mg PO BID albuterol sulfate 90 mcg/actuation HFA aerosol inhaler 2 puff INHALATION Q6 PRN (Reason: Shortness Of Breath Or Wheezing) atorvastatin 40 mg Tablet 40 mg PO HS cholecalciferol (vitamin D3) 25 mcg (1,000 unit) Tablet 25 mcg PO QAM citalopram 20 mg tablet 20 mg PO QAM pantoprazole 40 mg tablet,delayed release (DR/EC) 40 mg PO QAM aspirin 81 mg Tablet,Delayed Release (Dr/Ec) 81 mg PO QAM polyethylene glycol 3350 17 gram Powder In Packet 17 g PO DAILY PRN (Reason: Constipation) hydrocodone-acetaminophen 5-325 mg tablet 1 tab PO Q6 PRN (Reason: Mild Pain (Scale Score 1-4)) meclizine 12.5 mg tablet 12.5 mg PO BID benzonatate 100 mg capsule 100 mg PO TID PRN (Reason: Cough) Eliquis 5 mg tablet 5 mg PO AMHS multivitamin with minerals Capsule 1 cap PO DAILY magnesium oxide 400 mg magnesium Tablet 400 mg PO HS Discharge Orders: Discharge Order (Routine); Ordered 10/13/24 Ordered By: Karl Shepherd/Other Patient Handouts: High Blood Pressure Risk Factors, Shortness of Breath Coping, AFib Admission Data Admit Date/Time: 10/12/24 20:08 Attending Provider: Karl Valles Admit Provider: Javed Shrestha Primary Care Provider: Ranulfo Schumacher Other Providers: Jm Paul; Blade Leija; [place],[facility] Other Interventions: Discharge Summary Assessment (RN) Last Done: 10/13/24 16:33
--- NOTE | 2024-10-13 16:22 | Myocardial Perfusion Study ---
Date of Service October 13, 2024 Myocardial Perfusion Study [facility] Myocardial Perfusion Study Report Procedure: 1. Myocardial perfusion study performed in multiple views/images 2. Lexiscan pharmacologic stress ECG Indications: 1. Dyspnea on exertion 2. Left bundle branch block Ordering physician: Blade Leija DO Procedural details: For the stress portion of the study, Lexiscan 0.4 mg was intravenously administered followed by a saline flush. This was followed by 32.4 mCi of t echnetium 99m Cardiolite, injected at 13:20 on 10/13/24. 30 minutes following the injection, imaging of the heart was performed in multiple projections. For the rest portion of the study, 10.8 mCi technetium 99m Cardiolite was injected intravenously at 11:40 am on 10/13/24. 1 hour following the injection, imaging of the heart was performed in the same projections. Lexiscan stress EKG: The resting EKG demonstrated: Sinus rhythm with left bundle branch block The stress EKG response was nondiagnostic for excluding ischemia due to the presence of the underlying left bundle branch block. No arrhythmias were observed. The heart rate response to pharmacologic stress was normal. The blood pressure response to pharmacologic stress was normal. Findings: Rotating raw imaging demonstrated no significant lung uptake. There is no significant motion artifact. Heart size appeared normal. Myocardial perfusion demonstrated normal stress and resting perfusion. Ejection fraction: >70% Wall motion:normal No significant transient ischemic dilation. Impression: 1. Normal pharmacologic myocardial perfusion imaging study without evidence of scar or inducible ischemia. 2. Normal left ventricular ejection fraction, >70% 3. No symptoms suggestive of angina were reported with the test
--- NOTE | 2024-10-13 16:24 | Communication Note ---
Date of Service: October 13, 2024 Nuclear stress test was normal. Results discussed with patient and his daughter. Pt stable for discharge from a cardiac standpoint on his [employer] medications without change.
--- OUTSIDE RECORDS SUMMARY | 2024-10-13 17:12 | External Medical Summary | Summary of Care ---
Author Name Unknown Organization [facility] Address [address] [place] [address] Phone [phone] Care Team Providers Care Netbackup Engineer Name Role Phone Ranulfo Schumacher DO Primary Care Provider [phone] Reason for Visit * Reason Onset Date Comments Triage Advice 10/12/2024 Encounter Details Date Type Department Care Team (Late st Contact Info) Description 10/12/2024 Telephone Family Practice [address] [facility] [address] [place] [address] Ranulfo Schumacher DO [address] [place], [place] [id number] Triage Advice Allergies Active Allergy Reactions Criticality Noted Date Comments Oxycodone 10/11/2020 caused heart to stopped--per patient documented as of this encounter (statuses as of 10/12/2024) Medications ASPIRIN EC 81 MG PO TBEC Take 1 Tablet by mouth every evening. Active MULTI VITAMIN/MINERALS PO TABS Take 1 Tablet by mouth in the morning. Active PREVIDENT 5000 BOOSTER PLUS 1.1 % DT PSTE Cache onto teeth. Special tooth paste 5 Active [...] (Prevnar) 10/25/2015,05/12/2015 Pneumococcal Conjugate Vacci ne, 20-valent ([id number]) 09/07/2024 Pneumococcal Conjugate Vacci ne, 7 Valent [...] Telephone Encounter - Ranulfo Schumacher DO - 10/12/2024 3:25 PM EST Sounds like worsening angina. Will need ED evaluation * Telephone Encounter - Kiesha Moon RN - 10/12/2024 3:21 PM EST Daughter called in states patient is worsening over past few days, continued to struggle when he moves around; difficulty breathing; fatigues much easier/faster, complains of being tired frequently. States he complains of a chest tightness, but "not a pain, per se". He does not have any n/v/ or numbness down either arm. Has not fainted. He does not feel like his heart is racing or feel like his heart is beating out of his chest. Daughter was unable to obtain HR, pulse ox or blood pressure at this time. Discussed symptoms with Dr. Schumacher; Dr. Schumacher advised the ER to rule out cardiac involvement due to history of A-fib, CKD, HTN, CVA. Daughter to update PCP office tomorrow morning with results of ER visit.CM to continue to follow. CM to continue to follow. Review of Systems: Review of Systems Constitutional: Positive for fatigue. Negative for fever. HENT: Negative for congestion and sinus pressure. Respiratory: Positive for chest tightness and shortness of breath. Negative for cough. Cardiovascular: Negative for chest pain and palpitations. Gastrointestinal: Negative for nausea and vomiting. Musculoskeletal: Positive for gait problem (worsening fatigue and unsteady; needing to rest more often with rollator;). Neurological: Negative for syncope and numbness. documented in this encounter Plan of Treatment Upcoming Encounters Date Type Department Care Team (Late st Contact Info) Description 10/26/2024 2:00 PM EST Scheduled Telephone [facility] [place] [address] [place] [phone] [place] Nurse Phone Call [facility] [place] [address] [place] [id number] 11/28/2024 2:20 PM EST Office Visit Family Practice [address] [place] [address] [place] [phone] Ranulfo Schumacher DO [address] [place] [place] [address] Health Maintenance Due Date Last Done Comments Adult Wellness Visit 09/10/2024 09/10/2023, 05/31/20 21 Albumin/Creatinine Ratio 01/10/2025 024, 03/27/2023, 05/26/2022, Additional history exists CKD HGB USE SMARTSET 73800 08/30/202508/30, 08/30/2024, 03/18/2024, Additional history exists CKD PHOS USE SMARTSET 15401 08/30/2025 1211/2023, 09/22/2023, 09/12/2022, Additional history exists Depression Screening [...] this encounter Medical Devices Implanted Type Area Policy Adviser Device Identifier Shelf Expiration Date Model / Serial / Lot Plug Mesh Small Hernia - [id number] Implanted:Qty: 1 on 12/28/2017 by Jorge Luis Krause MD at OR [facility] Right: Ksenia CORDON BARD : LIN 02/25/2019 [id number] / / [id number] documented as of this encounter Advance Directives Documents on File Type Date Recorded 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 [employer]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 anation Advance Directives and Living Will 01/02/2023 ADVANCE DIRECTIVE / LIVING WILL Power of Continuous [employer] Supervisor 01/02/2023 POWER OF A TTORNEY Advance Directives and Living Will 11/27/2014 ADVANCE DIRECTIVE / LIVING WILL Power of Continuous [employer] Supervisor 11/27/2014 POWER OF A TTORNEY Healthcare Agents on File Name Relationship Healthcare Agent [facility] p Communication Mukul Gillian Adult Child Health Care Agen t (per Health Care Power of Continuous [employer] Supervisor document) Care Teams Netbackup Engineer Relationship Specialty Start Date End Date Ranulfo Schumacher DO [address] [place] [address] PCP - General Internal Medicine 03/11/24 documented as of this encounter
--- NOTE | 2024-10-14 23:05 | Electrocardiogram Report ---
Test Reason : Blood Pressure : */* mmHG Vent. Rate : 77 BPM Atrial Rate : 77 BPM P-R Int : 154 ms QRS Dur : 122 ms QT Int : 416 ms P-R-T Axes : 55 -46 57 degrees QTcB Int : 470 ms Normal sinus rhythm Left axis deviation Left bundle branch block Abnormal ECG When compared with ECG of 12-Oct-2020 12:31, Left bundle branch block is now Present Confirmed by Sergei Luther ([id number]) on 10/14/2024 11:05:17 PM Referred By: Ranulfo Schumacher Confirmed By: Sergei Luther
== END 2024-10-13 17:06 | disposition home or self-care (01) ==
LOC: ED 16:58 → 2N 16:58
DX: Z86.711 Personal history of pulmonary embolism; Z88.5 Allergy status to narcotic agent; Z87.891 Personal history of nicotine dependence; F02.80 Dementia in other diseases classified elsewhere, unspecified severity, without behavioral disturbance, psychotic disturbance, mood disturbance, and anxiety; G30.9 Alzheimer's disease, unspecified; Z86.73 Personal history of transient ischemic attack (TIA), and cerebral infarction without residual deficits; Z79.82 Long term (current) use of aspirin; R07.9 Chest pain, unspecified; I44.7 Left bundle-branch block, unspecified; Z79.899 Other long term (current) drug therapy; Z79.01 Long term (current) use of anticoagulants; Z86.16 Personal history of COVID-19; N18.30 Chronic kidney disease, stage 3 unspecified

== ENCOUNTER 2024-11-19 13:35 | Inpatient (IN) ==
--- OUTSIDE RECORDS SUMMARY | 2024-11-19 13:41 | External Medical Summary | Summary of Care ---
Author Name Unknown Organization [facility] Address [address] [place] [address] Phone [phone] Care Team Providers Care Ekg Manager Name Role Phone Charity Schumacher DO Primary Care Provider [phone] Reason for Visit * Reason Comments Medication Refill Encounter Details Date Type Department Care Team (Late st Contact Info) Description 11/13/2024 Refill Family Practice [address] [facility] [address] [place] [address] Charity Schumacher DO [address] [place] [address] HTN, goal below 140/90*; Anxiety; Vertigo; Gastroesophageal reflux disease without esophagitis Allergies Active Allergy Reactions Criticality Noted Date Comments Oxycodone 10/11/2020 caused heart to stopped--per patient documented as of this encounter (statuses as of 11/15/2024) Medications ASPIRIN EC 81 MG PO TBEC Take 1 Tablet by mouth every evening. Active MULTI VITAMIN/MINERALS PO TABS Take 1 Tablet by mouth in the morning. Active PREVIDENT 5000 BOOSTER PLUS 1.1 % DT PSTE [place] onto teeth. Special tooth paste 09/28/19 15 Active Tylenol 325 MG Oral Capsule (Acetaminophen) Take 650 mg by mouth every 6 hours as needed for Pain, Moderate (up to 3000 units per day). Active Magnesium Oxide 400 (240 Mg) MG Oral Tablet Take 1 Tablet by mouth at bedtime. Active Apixaban 5 MG Oral Tablet (Eliquis)Indicat ions:PAF (paroxysmal atrial fibrillation) (HCC),History of pulmonary embolism TAKE ONE TABLET BY MOUTH IN THE MORNING AND TAKE ONE TABLET BY MOUTH BEFORE BEDTIME 200 Tablet 3 08/27/2024 12:55 PM EST 11/14/19 24 025 Active Gabapentin 100 MG Oral Capsule (Neurontin)Indic ations:Lumbar degenerative disc disease TAKE ONE CAPSULE BY MOUTH TWICE A DAY -- IN THE MORNING AND IN THE EVENING 200 Capsule 3 08/01/2024 6:22 AM EST 01/08/20 24 025 Active Meclizine HCl 12.5 MG Oral Tablet (Antivert)Indica tions:Vertigo take one tablet by mouth twice daily 200 Tablet 1 08/01/2024 6:29 PM EST 04/25/20 24 Active Rollator Ultra-LightIndic ations:Lumbar degenerative disc disease,Degenera tive disc disease, cervical,Gait disturbance,At risk for falls,Abnormalit y of gait due to impairment of balance Use daily for adl's and to prevent falls. 1 Each 06/09/20 24 Active Carvedilol 6.25 MG Oral Tablet (Coreg)Indicatio ns:HTN, goal below 140/90 TAKE ONE TABLET BY MOUTH EVERY MORNING 100 Tablet 3 10/03/2024 1:13 PM EST 06/24/20 24 025 Active Additional Information Patient taking differently: 6.25 mg Oral DAILY(1900), Reported on 10/20/2024 HYDROcodone-Acet aminophen 5-325 MG Oral TabletIndication s:Lumbar degenerative disc disease Take 1 Tablet by mouth every 6 hours as needed for Pain, Mild. 45 Tablet 10/04/19 25 Active Albuterol Sulfate HFA 108 (90 Base) MCG/ACT Inhalation Aerosol SolutionIndicati ons:Shortness of breath Inhale 2 Puffs by mouth every 6 hours as needed for Shortness of Breath. 18 g 5 10/20/19 25 Active Atorvastatin Calcium 40 MG Oral Tablet (Lipitor)Indicat ions:Dyslipidemi a, goal LDL below 130 TAKE ONE TABLET BY MOUTH EVERY DAY 100 Tablet 1 10/21/2024 3:18 PM EST 10/21/19 25 026 Active busPIRone HCl 5 MG Oral Tablet (Buspar)Indicati ons:Anxiety Take 1 Tablet by mouth in the morning and 1 Tablet at noon and 1 Tablet before bedtime. 90 Tablet 3 10/26/19 25 Active Citalopram Hydrobromide 20 MG Oral Tablet (CeleXA)Indicati ons:Anxiety TAKE ONE TABLET BY MOUTH DAILY IN THE MORNING. 100 Tablet 3 11/14/19 25 026 Active Pantoprazole Sodium 40 MG Oral Tablet Delayed Release (Protonix)Indica tions:Gastroesop hageal reflux disease without esophagitis TAKE ONE TABLET BY MOUTH IN THE MORNING 100 Tablet 1 11/14/19 25 Active Meclizine HCl 12.5 MG Oral Tablet (Antivert)Indica tions:Vertigo Take 1 Tablet by mouth 2 times a day as needed for Dizziness. 200 Tablet 1 11/14/19 25 Active Citalopram Hydrobromide 20 MG Oral Tablet (CeleXA)Indicati ons:Anxiety TAKE ONE TABLET BY MOUTH DAILY IN THE MORNING. 100 Tablet 3 07/25/2024 10:21 AM EDT 09/10/20 23 025 Discontin ued(Refil l) Pantoprazole Sodium 40 MG Oral Tablet Delayed Release (Protonix)Indica tions:Gastroesop hageal reflux disease without esophagitis TAKE ONE TABLET BY MOUTH IN THE MORNING 90 Tablet 1 08/06/2024 3:26 PM EST 05/17/20 24 025 Discontin ued(Refil l) documented as of this encounter (statuses as of 11/15/2024) Active Problems Problem Noted Date Diagnosed Date [...] AM EDT): Regular today. Rate controlled. -continue Coreg Eliquis Assessment & Plan (01/27/2023 10:32 AM [...] as of this encounter (statuses as of 11/15/2024) Resolved Problems Problem Noted Date Diagnosed Date [...] as of this encounter (statuses as of 11/15/2024) Immunizations Name Administration Dates Next Due COVID-19 mRNA, LNP-s, No Pre serve, 2-Dose Series (Moderna) 07/17/2021,11/28/2020,11/01/2020 COVID-19, LNP-s, No Preserve , Cheng-sucrose, Ages 12+ (Pfizer) 05/13/2022 COVID-19, MRNA-LNP, PF, 30 M CG/0.3 mL, 12 YRS AND ABOVE, IM ([facility]) 09/07/2024,07/13/2023 Covid-19, Mrna, Lnp-s, Pf, B ivalent, 30 Mcg, IM, 12 yrs and above ([employer]) 10/14/2022 Pneumococcal Conjugate Vacc, 13 Valent (Prevnar) 10/25/2015,05/12/2015 Pneumococcal Conjugate Vacci ne, 20-valent ([id number]) 09/07/2024 Pneumococcal Conjugate Vacci ne, 7 Valent [...] Years Used Date Smoking Tobacco: Former Cigars Q uit: 1989 Passive Smoke Exposure: Past Smokeless Tobacco: Never [...] ages 0-17 years) Not on file 08/31/2024 Food Insecurity Answer Date Recorded Within the past 12 months, y ou worried that your food would run out before you got the money to buy more. Never true 08/31/20 24 Within the past 12 months, t he food you bought just didn't last and you didn't have money to get more. Never true 08/31/2024 Do you need food for this week? No 08/31/2024 Sex and Gender Information Value Date Recorded Sex Assigned at Male 10/11/2019 9:33 AM EST Legal Sex Male 11:05 AM EDT Gender Identity Male 10/11/2019 9:33 AM EST Sexual Orientation Straight 10/11/2019 9: 33 AM EST documented as of this encounter Miscellaneous Notes * Telephone Encounter - Charity Schumacher DO - 11/14/2024 8:07 PM ESTSigned Prescriptions: Disp Refills Citalopram Hydrobromide 20 MG Oral Tablet *100 Ta*3 Sig: TAKE ONE TABLET BY MOUTH DAILY IN THE MORNING.Authorizing Provider: CHARITY SCHUMACHER User: ALICIA KINGSTON Pantoprazole Sodium 40 MG Oral Tablet Shreya*100 Ta*1 Sig: TAKE ONE TABLET BY MOUTH IN THE MO RNINGAuthorizing Provider: CHARITY SCHUMACHER User: ALICIA KINGSTON Meclizine HCl 12.5 MG OralTablet (Antiver*200 Ta*1 Sig: Take 1 Tablet by mouth 2 times a day as needed for Dizziness.Authorizing Provider: CHARITY SCHUMACHER ARefuseanmol Prescriptions: Disp Refills Meclizine HCl 12.5 MG Oral Tablet (A ntiver*200 Ta*1 Sig: take one tablet by mouth twice dailyRefused By: Danielle KINGSTON for Refusal: Dose needs clarification -- * Telephone Encounter - Alicia Kingston [facility] - 11/14/2024 1:07 PM EST Unable to authorize medication refills for pended medication(s) at this time. Part of the protocol criteria used for refill authorization was not satisfied: The last prescription was ordered before the Planned Duration and Indication questions were implemented, so these have not been selected. Meclizine is typically intended for acute use as a PRN medication and not for long-term routine use, and the patient has been taking meclizine for more than 3 months. Please consider referral to one of the following: Otolaryngology if there are associated aural complaints (hearing loss, tinnitus) associated with the dizziness or if the dizziness evolves spontaneously. Neurology if the dizziness is associated with migraine headache, diplopia, limb incoordination, weakness, dysarthria, dysphagia or inability to ambulate/highly frequent falls. Vestibular physical therapist if the dizziness is primarily related to position changes or head movement (BPPV). Thanks, Alicia Kingston, PharmD Clinical Pharmacist [facility] ([facility]) [phone] 11/14/2024 1:07 PM * Telephone Encounter - Alicia Kingston [facility] - 11/14/2024 1:06 PM ESTSigned Prescriptions: Disp Refills Citalopram Hydrobromide 20 MG Oral Tablet *100 Ta*3 Sig: TAKE ONE TABLET BY MOUTH DAILY IN THE MORNING. Authorizing Provider: CHARITY SCHUMACHER Ordering User: ALICIA KINGSTON Pantoprazole Sodium 40 MG Oral Tablet Shreya*100 Ta*1 Sig: TAKE ONE TABLET BY MOUTH IN THE MORNING Authorizing Provider: CHARITY SCHUMACHER Ordering User: MARGARETTE KINGSTON Refused Prescriptions: Disp Refills Meclizine HCl 12.5 MG Oral Tablet (Antiver*200 Ta*1 Sig: take one tablet by mouth twice daily Refused By: ALICIA KINGSTON Reason for Refusal: Dose needs clarification * Telephone Encounter - Alicia Kingston RPh - 11/14/2024 1:04 PM EST Per refill protocol patient needs vitamin B-12 lab on file within the past 2 years while using PPIs. Lab work ordered. Patient may obtain with next routine labs. Thanks, Alicia Kingston, PharmD Clinical Pharmacist [facility] ([facility]) [phone] 11/14/2024 1:06 PM documented in this encounter Plan of Treatment Upcoming Encounters Date Type Department Care Team (Late st Contact Info) Description 11/28/2024 2:20 PM EST Office Visit Family Practice [address] [place] [address] [place] [id number] Charity Schumacher, [address] [place] [address] Scheduled Orders Name Type Priority Associated Diagnoses Orde r Schedule ALBUMIN / CREATININE RATIO, URINE Lab Routine HTN, goal below 140/90 Expected: 02/11/2025, Expires: 11/14/2025 VITAMIN B12 Lab Routine Gastroesophageal reflux disease without esophagitis Expected: 02/11/2025 (Approximate), Expires: 11/14/2025 Health Maintenance Due Date Last Done Comments Adult Wellness Visit 09/10/2024 09/10/2023, 05/31/20 21 Albumin/Creatinine Ratio 01/10/20252 024, 03/27/2023, 05/26/2022, Additional history exists COVID-19 Vaccine (8 - Moderna risk ) 03/08/2025 09/07/2024, 07/13/2023, 10/14/2022, Additional history exists CKD PHOS USE SMARTSET 54026 08/30/202511/2023, 09/22/2023, 09/12/2022, Additional history exists Depression Screening 08/31/2025 08/31/2024, 08/30/20 24 CKD HGB USE SMARTSET 65905 10/20/202510/20, 10/20/2024, 08/30/2024, Additional history exists DTap/Tdap Vaccines (3 - Td or Tdap) 06/26/2033 06/26/2023, 05/16/2013 Zoster Vaccines Completed 08/19/2019, 05/30, 06/28/2007 Influenza Vaccine (FLU shot) Completed 11/2023, 06/16/2023, 06/18/2022, Additional history exists Pneumococcal Vaccine: 50+ Years Completed 09/07/2024, 05/20/2017, 10/25/2015, Additional history exists HPV (Gardasil) Vaccine Aged Out No lo nger eligible based on patient's age to complete this topic Hepatitis B Vaccine Aged Out No longe r eligible based on patient's age to complete this topic MENINGOCOCCAL (MENACTRA/MENVEO) Aged Out No longer eligible based on patient's age to complete this topic Meningitis B Vaccine (Bexsero/Trumemba) Aged Out No longer eligible based on patient's age to complete this topic documented as of this encounter Medical Devices Implanted Type Area Registered Dietetic Technician Device Identifier Shelf Expiration Date Model / Serial / Lot Plug Mesh Small Hernia - [id number] Implanted:Qty: 1 on 12/28/2017 by Jorge Luis Krause MD at [facility] Right: Groin CR BARD : DAVOL 02/25/2019 [id number] / / [id number] documented as of this encounter Visit Diagnoses [...] of pulmonary embolism Vertigo Dizziness and giddiness HTN, goal below 140/90- Primary Unspecified essential hypertension Anxiety Anxiety state, unspecified Vertigo Dizziness and giddiness Gastroesophageal reflux disease without esophagitis Esophageal reflux documented in this encounter Advance Directives Documents on File Type Date Recorded 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 Stereo 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 Expl anation Power of Associate Professor Of Biostatistics 01/02/2023 Mukul banda signed on 01/02/2023 - Combined Living Will & Health Care POA Power of Associate Professor Of Biostatistics 11/27/2014 signed on 11/27/2014 Health Care POA & Living Will and "What If I had Dementia" worksheet Healthcare Agents on File Name Relationship Healthcare Agent Relationshi p Communication Mukul French Adult Child Health Care Agen t (per Health Care Power of Associate Professor Of Biostatistics document) Radhika bajwa Adult Child First Alternate Health Care Agent (per Health Care Power of Associate Professor Of Biostatistics document) Care Teams Ekg Manager Relationship Specialty Start Date End Date Charity Schumacher DO [address] [place] [address] PCP - General Internal Medicine 03/11/24 documented as of this encounter
--- OUTSIDE RECORDS SUMMARY | 2024-11-19 13:41 | External Medical Summary | Summary of Care ---
Author Name Unknown Organization [facility] Address [address] [place] [address] Phone [phone] Care Team Providers Care Tonsorial Artist Name Role Phone Ranulfo Schumacher DO Primary Care Provider [phone] Reason for Visit * Reason Onset Date Comments Appointment 11/15/2024 Encounter Details Date Type Department Care Team (Late st Contact Info) Description 11/15/2024 Telephone [facility] [address] [place] [address] John Ferrer DO [address] [place] [address] Appointment Allergies Active Allergy Reactions Criticality Noted Date Comments Oxycodone 10/11/2020 caused heart to stopped--per patient documented as of this encounter (statuses as of 11/15/2024) Medications ASPIRIN EC 81 MG PO TBEC Take 1 Tablet by mouth every evening. Active MULTI VITAMIN/MINERALS PO TABS Take 1 Tablet by mouth in the morning. Active PREVIDENT 5000 BOOSTER PLUS 1.1 % DT PSTE [place] onto teeth. Special tooth paste 5 Active [...] AND IN THE EVENING 200 Capsule 3 11/15/2024 12:17 PM EST 4 02/24/20 25 Active Meclizine HCl 12.5 MG Oral Tablet (Antivert)Indica tions:Vertigo take one tablet by mouth twice daily 200 Tablet 1 08/01/2024 6:29 PM EST 4 Active Rollator Ultra-LightIndic ations:Lumbar degenerative disc [...] 1:13 PM EST 4 06/24/20 25 Active Additional Information Patient taking differently: 6.25 mg Oral DAILY(1900), Reported on 10/20/2024 HYDROcodone-Acet aminophen 5-325 MG Oral TabletIndication s:Lumbar degenerative disc disease Take 1 Tablet by mouth every 6 hours as needed for Pain, Mild. 45 Tablet 5 Active Albuterol Sulfate HFA 108 (90 Base) MCG/ACT Inhalation Aerosol SolutionIndicati ons:Shortness of breath Inhale 2 Puffs by mouth every 6 hours as needed for Shortness of Breath. 18 g 5 5 Active Atorvastatin Calcium 40 MG Oral Tablet (Lipitor)Indicat ions:Dyslipidemi a, goal LDL below 130 TAKE ONE TABLET BY MOUTH EVERY DAY 100 Tablet 1 10/21/2024 3:18 PM EST 5 10/21/19 26 Active busPIRone HCl 5 MG Oral Tablet (Buspar)Indicati ons:Anxiety Take 1 Tablet by mouth in the morning and 1 Tablet at noon and 1 Tablet before bedtime. 90 Tablet 3 5 Active Citalopram Hydrobromide 20 MG Oral Tablet (CeleXA)Indicati ons:Anxiety TAKE ONE TABLET BY MOUTH DAILY IN THE MORNING. 100 Tablet 3 11/15/2024 12:17 PM EST 5 11/14/19 26 Active Pantoprazole Sodium 40 MG Oral Tablet Delayed Release (Protonix)Indica tions:Gastroesop hageal reflux disease without esophagitis TAKE ONE TABLET BY MOUTH IN THE MORNING 100 Tablet 1 11/15/2024 12:17 PM EST 5 Active Meclizine HCl 12.5 MG Oral Tablet (Antivert)Indica tions:Vertigo Take 1 Tablet by mouth 2 times a day as needed for Dizziness. 200 Tablet 1 5 Active documented as of this encounter [...] LNP-s, No Preserve , Cheng-sucrose, Ages 12+ ([employer]) 05/13/2022 COVID-19, MRNA-LNP, PF, 30 M CG/0.3 mL, 12 YRS AND ABOVE, IM (PFIZER-Comirnaty) 09/07/2024,07/13/2023 Covid-19, Mrna, Lnp-s, Pf, B ivalent, 30 Mcg, IM, 12 yrs and above (Pfizer) 10/14/2022 Pneumococcal Conjugate Vacc, 13 Valent (Prevnar) 10/25/2015,05/12/2015 Pneumococcal Conjugate Vacci ne, 20-valent ([id number]) 09/07/2024 Pneumococcal Conjugate Vacci ne, 7 Valent [...] encounter Miscellaneous Notes * Telephone Encounter - Karla Nielson LPN - 11/15/2024 10:31 AM EST Patient's daughter called and wants patient scheduled for next injection.states they are supposed to be every 6months.he's currently not in any pain. L3/4 interlaminar epidural steroid injection on the left side on 09/30/24 Aware they have to travel to [facility]-unhappy about this but would like scheduled and will talk to pcp to discuss possibly going to [facility] pain instead. Please order inj. documented in this encounter Plan of Treatment Upcoming Encounters Date Type Department Care Team (Late st Contact Info) Description 11/28/2024 2:20 PM EST Office Visit Family Practice [address], [place] [address] [place] [address] Ranulfo Schumacher, [address] [place] [address] Health Maintenance Due Date Last Done Comments Adult Wellness Visit 09/10/2024 09/10/2023, 05/31/20 21 Albumin/Creatinine Ratio 01/10/202501/10/2 024, 03/27/2023, 05/26/2022, Additional history exists COVID-19 Vaccine (8 - Moderna risk season) 2025 09/07/2024, 07/13/2023, 10/14/2022, Additional history exists CKD PHOS USE SMARTSET 82300 08/30/2025 12/0 11/2023, 09/22/2023, 09/12/2022, Additional history exists Depression Screening 08/31/2025 08/31/2024, 08/30/20 24 CKD HGB USE SMARTSET 31822 10/20/202510/20, 10/20/2024, 08/30/2024, Additional history exists DTap/Tdap [...] this encounter Medical Devices Implanted Type Area Heater Furnace Device Identifier Shelf Expiration Date Model / Serial / Lot Plug Mesh Small Hernia - [id number] Implanted:Qty: 1 on 12/28/2017 by Jorge Luis Krause MD at OR [facility] Right: Groin CR BARD : DAVOL 02/25/2019 [id number] / / [id number] documented as of this encounter Advance Directives Documents on File Type Date Recorded Patient Shelf Filler Expl anation Power of Live In Companion 01/02/2023 Mukul banda signed on 01/02/2023 - Combined Living Will & Health Care POA Power of Live In Companion 11/27/2014 signed on 11/27/2014 Health Care POA & Living Will and "What If I had Dementia" worksheet Healthcare Agents on File Name Relationship Healthcare Agent Relationshi p Communication Mukul French Adult Child Health Care Agen t (per Health Care Power of Live In Companion document) Radhika bajwa Adult Child First Alternate Health Care Agent (per Health Care Power of Live In Companion document) Care Teams Tonsorial Artist Relationship Specialty Start Date End Date Ranulfo Schumacher DO [address] [place] [address] PCP - General Internal Medicine 03/11/24 documented as of this encounter
--- OUTSIDE RECORDS SUMMARY | 2024-11-19 13:41 | External Medical Summary | Summary of Care ---
Author Name Unknown Organization [facility] Address [address] [place] [address] Phone [phone] Care Team Providers Care Photo Mask Pattern Generator Name Role Phone Ranulfo Schumacher DO Primary Care Provider Reason for Referral * Precert (Within 10 days (routine)) - Authorized Specialty Diagnoses / Procedures Referred By Contsanjeev t Referred To Contact Pain Medicine Diagnoses Chronic radicular lumbar pain Spinal stenosis of lumbar region without neurogenic claudication Procedures INJECT DX/THER SUBSTANCE INTERLAMINAR LUMBAR/SACRAL W IMAGE GUIDE John Ferrer DO [address] [place] [address] Phone: tel: fax: Referral ID Status Reason Start Date Expiration Date V isits Requested Visits Authorized [id number] Authorized 11/16/2024 [id number] Reason for Visit * Reason Onset Date Comments Appointment 11/15/2024 Encounter Details Date Type Department Care Team (Late st Contact Info) Description 11/15/2024 Telephone [facility] [address] [place] [address] John Ferrer DO [address] [place] [address] Appointment Allergies Active Allergy Reactions Criticality Noted Date Comments Oxycodone 10/11/2020 caused heart to stopped--per patient documented as of this encounter (statuses as of 11/16/2024) Medications ASPIRIN EC 81 MG PO TBEC Take 1 Tablet by mouth every evening. Active MULTI VITAMIN/MINERALS PO TABS Take 1 Tablet by mouth in the morning. Active PREVIDENT 5000 BOOSTER PLUS 1.1 % DT PSTE [place] onto teeth. Special tooth paste 5 Active [...] as of this encounter (statuses as of 11/16/2024) Active Problems Problem Noted Date Diagnosed Date [...] as of this encounter (statuses as of 11/16/2024) Resolved Problems Problem Noted Date Diagnosed Date [...] as of this encounter (statuses as of 11/16/2024) Immunizations Name Administration Dates Next Due COVID-19 mRNA, LNP-s, No Pre serve, 2-Dose Series (Moderna) 07/17/2021,11/28/2020,11/01/2020 COVID-19, LNP-s, No Preserve , Cheng-sucrose, Ages 12+ (Pfizer) 05/13/2022 COVID-19, MRNA-LNP, PF, 30 M CG/0.3 mL, 12 YRS AND ABOVE, IM (PFIZER-Comirnat) 09/07/2024,07/13/2023 Covid-19, Mrna, Lnp-s, Pf, B ivalent, 30 Mcg, IM, 12 yrs and above (Pfizer) 10/14/2022 Pneumococcal Conjugate Vacc, 13 Valent (Prevnar) 10/25/2015,05/12/2015 Pneumococcal Conjugate Vacci ne, 20-valent ([id number]) 09/07/2024 Pneumococcal Conjugate Vacci ne, 7 Valent [...] encounter Miscellaneous Notes * Addendum Note - John Ferrer DO - 11/15/2024 5:04 PM ESTAddended by: JOHN FERRER on: 11/15/2024 05:04 PM Modules accepted: Orders * Telephone Encounter - John Ferrer DO - 11/15/2024 5:03 PM EST I personally reviewed the record when ordering the repeat L3/4 ZACHARY procedure. Hgb A1C was checked and appropriate. Hemoglobin AIC Results: Lab Results Component Value Date/Time HEMOGLOBIN A1C - [facility] 5.6 03/27/2023 12:32 PM HEMOGLOBIN A1C - [facility] 5.6 05/26/2022 02:37 PM HEMOGLOBIN A1C - [facility] 5.9 (H) 11/29/2021 02:54 PM There is not an allergy to dye, steroids or local anesthetics. The patient is is on anticoagulant or antiplatelet medications. Eliquis Please provide the patient with written pre-procedural instructions: No NSAIDs x 3 days. No supplements x 3 days. 3 day hold for eliquis 7 day hold for OTC aspirin, can continue low dose 81mg aspirin if taken daily. John Ferrer DO [facility] [address] [place] [address] * Telephone Encounter - Karla Nielson LPN - 11/15/2024 10:31 AM EST Patient's daughter called and wants patient scheduled for next injection.states they are supposed to be every 6months.he's currently not in any pain. L3/4 interlaminar epidural steroid injection on the left side on 09/30/24 Aware they have to travel to [facility]-unhappy about this but would like scheduled and will talk to pcp to discuss possibly going to [facility] pain instead. Please order inj. documented in this encounter Plan of Treatment Upcoming Encounters Date Type Department Care Team (Late st Contact Info) Description 11/28/2024 2:20 PM EST Office Visit Family Practice [address] [place] [address] [address] [place] [address] Ranulfo Schumacher DO [address] [place] [address] Scheduled Orders Name Type Priority Associated Diagnoses Orde r Schedule INJECT DX/THER SUBSTANCE INTERLAMINAR LUMBAR/SACRAL W IMAGE GUIDE Procedures Routine Chronic radicular lumbar pain Spinal stenosis of lumbar region without neurogenic claudication Expected: 11/16/2024, Expires: 03/15/2025 Health Maintenance Due Date Last Done Comments Adult Wellness Visit 09/10/2024 09/10/2023, 05/31/20 21 Albumin/Creatinine Ratio 01/10/202501/10/2 024, 03/27/2023, 05/26/2022, Additional history exists COVID-19 Vaccine (8 - Moderna risk season) 2025 09/07/2024, 07/13/2023, 10/14/2022, Additional history exists CKD PHOS USE SMARTSET 08778 08/30/202511/2023, 09/22/2023, 09/12/2022, Additional history exists Depression Screening 08/31/2025 08/31/2024, 08/30/20 24 CKD HGB USE SMARTSET 37905 10/20/202510/20, 10/20/2024, 08/30/2024, Additional history exists DTap/Tdap [...] this encounter Medical Devices Implanted Type Area Despatch Clerk Device Identifier Shelf Expiration Date Model / Serial / Lot Plug Mesh Small Hernia - [id number] Implanted:Qty: 1 on 12/28/2017 by Jorge Luis Krause MD at OR [facility] Right: Groin CR BARD : DAVOL 02/25/2019 [id number] / / [id number] documented as of this encounter Visit Diagnoses [...] of pulmonary embolism Vertigo Dizziness and giddiness Spinal stenosis of lumbar region without neurogenic claudication- Primary Spinal stenosis, lumbar region, without neurogenic claudication Chronic radicular lumbar pain Thoracic or lumbosacral neuritis or radiculitis, unspecified documented in this encounter Advance Directives Documents on File Type Date Recorded Patient Director Of Securities And Real Estate Expl anation Power of News Videographer 01/02/2023 Mukul banda signed on 01/02/2023 - Combined Living Will & Health Care POA Power of News Videographer 11/27/2014 signed on 11/27/2014 Health Care POA & Living Will and "What If I had Dementia" worksheet Healthcare Agents on File Name Relationship [facility] Mukul French Adult Child Health Care Agen t (per Health Care Power of News Videographer document) Radhika bajwa Adult Child First Alternate Health Care Agent (per Health Care Power of News Videographer document) Care Teams Photo Mask Pattern Generator Relationship Specialty Start Date End Date Ranulfo Schumacher DO [address] [place] [facility] [place] [address] PCP - General Internal Medicine 03/11/24 documented as of this encounter
--- OUTSIDE RECORDS SUMMARY | 2024-11-19 13:41 | External Medical Summary | Summary of Care ---
Author Name Unknown Organization [facility] Address [address] [place] [address] Phone [phone] Care Team Providers Care Manager Research And Development Name Role Phone Ranulfo Schumacher Devin MADDOX Primary Care Provider [phone] Encounter Details Date Type Department Care Team (Late st Contact Info) Description 11/07/2024 4:15 PM EST Scheduled Telephone Care Coordination and Integration [address] [place], [place] [id number] Liat Gamez, Community Health Oracle Developer [address] [place] [address] Allergies Active Allergy Reactions Criticality Noted Date Comments Oxycodone 10/11/2020 caused heart to stopped--per patient documented as of this encounter (statuses as of 11/08/2024) Medications ASPIRIN EC 81 MG PO TBEC Take 1 Tablet by mouth every evening. Active MULTI VITAMIN/MINERALS PO TABS Take 1 Tablet by mouth in the morning. Active PREVIDENT 5000 BOOSTER PLUS 1.1 % DT PSTE [place] onto teeth. Special tooth paste 5 Active Tylenol 325 MG Oral Capsule (Acetaminophen) Take 650 mg by mouth every 6 hours as needed for Pain, Moderate (up to 3000 units per day). Active Magnesium Oxide 400 (240 Mg) MG Oral Tablet Take 1 Tablet by mouth at bedtime. Active Citalopram Hydrobromide 20 MG Oral Tablet (CeleXA)Indicati ons:Anxiety TAKE ONE TABLET BY MOUTH DAILY IN THE MORNING. 100 Tablet 3 07/25/2024 10:21 AM EDT 3 Active Apixaban 5 MG Oral Tablet (Eliquis)Indicat [...] 3:26 PM EST 4 05/17/20 25 Active Rollator Ultra-LightIndic ations:Lumbar degenerative disc disease,Degenera [...] before bedtime. 90 Tablet 3 5 Active documented as of this encounter (statuses as of 11/08/2024) Active Problems Problem Noted Date Diagnosed Date [...] as of this encounter (statuses as of 11/08/2024) Resolved Problems Problem Noted Date Diagnosed Date [...] as of this encounter (statuses as of 11/08/2024) Immunizations Name Administration Dates Next Due COVID-19 mRNA, LNP-s, No Pre serve, 2-Dose Series (Moderna) 07/17/2021,11/28/2020,11/01/2020 COVID-19, LNP-s, No Preserve , Cheng-sucrose, Ages 12+ (Pfizer) 05/13/2022 COVID-19, MRNA-LNP, PF, 30 M CG/0.3 mL, 12 YRS AND ABOVE, IM (PFIZER-Comirnaty) 09/07/2024,07/13/2023 Covid-19, Mrna, Lnp-s, Pf, B ivalent, 30 Mcg, IM, 12 yrs and above (Work 'n Gear) 10/14/2022 Pneumococcal Conjugate Vacc, 13 Valent (Prevnar) 10/25/2015,05/12/2015 Pneumococcal Conjugate Vacci ne, 20-valent ([id number]) 09/07/2024 Pneumococcal Conjugate Vacci ne, 7 Valent [...] AM EST documented as of this encounter Progress Notes * Liat Gamez, Community Health Oracle Developer - 11/07/2024 3:59 PM EST Telemedicine visit: No Community Health Oracle Developer (JOSE ROBERTO) documentation: This CHW placed #2 f/u PC to patients son Mukul Gilman reported that patient is doing very well and no changes from the last time this CHW spoke withhim. This CHW encouraged Mukul to reach out with any concerns or questions and this Chw will follow up next week as planned. Liat Gamez- Community Health Worker 1 Support Services/[facility] [email or web address] documented in this encounter Plan of Treatment Upcoming Encounters Date Type Department Care Team (Late st Contact Info) Description 11/28/2024 2:20 PM EST Office Visit Family Practice [address], [place] [address] [place] [address] Ranulfo Schumacher, [address] [place] [address] Health Maintenance Due Date Last Done Comments Adult Wellness Visit 09/10/2024 09/10/2023, 05/31/20 21 Albumin/Creatinine Ratio 01/10/2025 024, 03/27/2023, 05/26/2022, Additional history exists CKD PHOS USE SMARTSET 62094 08/30/2025 12/11/2023, 09/22/2023, 09/12/2022, Additional history exists Depression Screening 08/31/2025 08/31/2024, 08/30/20 24 CKD HGB USE SMARTSET 18690 10/20/202510/20, 10/20/2024, 08/30/2024, Additional history exists DTap/Tdap [...] this encounter Medical Devices Implanted Type Area Turnstile Attendant Device Identifier Shelf Expiration Date Model / Serial / Lot Plug Mesh Small Hernia - [id number] Implanted:Qty: 1 on 12/28/2017 by Jorge Luis Krause MD at OR [facility] Right: Groin CR BARD : DAVOL 02/25/2019 [id number] / / [id number] documented as of this encounter Advance Directives Documents on File Type Date Recorded Patient Scientific Illustrator Expl anation Power of Weight Shifter 01/02/2023 Mukul banda signed on 01/02/2023 - Combined Living Will & Health Care POA Power of Weight Shifter 11/27/2014 signed on 11/27/2014 Health Care POA & Living Will and "What If I had Dementia" worksheet Healthcare Agents on File Name Relationship Healthcare Agent Relationshi p Communication Mukul French Adult Child Health Care Agen t (per Health Care Power of Weight Shifter document) Radhika rolandopitts Adult Child First Alternate Health Care Agent (per Health Care Power of Weight Shifter document) Care Teams Manager Research And Development Relationship Specialty Start Date End Date Ranulfo Schumacher DO [address] [place] [place] [address] PCP - General Internal Medicine 03/11/24 documented as of this encounter
--- OUTSIDE RECORDS SUMMARY | 2024-11-19 13:41 | External Medical Summary | Summary of Care ---
Author Name Unknown Organization [facility] Address [address] [place] [address] Phone [phone] Care Team Providers Care Application Defense Manager Name Role Phone Ranulfo Schumacher DO Primary Care Provider [phone] Encounter Details Date Type Department Care Team (Late st Contact Info) Description 11/18/2024 Telephone Interventional Pain Center, [facility] [address] [facility] [place] [address] John Ferrer DO [address] [facility] [place] [address] Allergies Active Allergy Reactions Criticality Noted Date Comments Oxycodone 10/11/2020 caused heart to stopped--per patient documented as of this encounter (statuses as of 11/18/2024) Medications ASPIRIN EC 81 MG PO TBEC Take 1 Tablet by mouth every evening. Active MULTI VITAMIN/MINERALS PO TABS Take 1 Tablet by mouth in the morning. Active PREVIDENT 5000 BOOSTER PLUS 1.1 % DT PSTE [place] onto teeth. Special tooth paste 5 Active [...] as needed for Dizziness. 200 Tablet 1 11/17/2024 6:44 AM EST 5 Active documented as of this encounter (statuses as of 11/18/2024) Active Problems Problem Noted Date Diagnosed Date [...] as of this encounter (statuses as of 11/18/2024) Resolved Problems Problem Noted Date Diagnosed Date [...] as of this encounter (statuses as of 11/18/2024) Immunizations Name Administration Dates Next Due COVID-19 mRNA, LNP-s, No Pre serve, 2-Dose Series (Moderna) 07/17/2021,11/28/2020,11/01/2020 COVID-19, LNP-s, No Preserve , Cheng-sucrose, Ages 12+ (Bracketz) 05/13/2022 COVID-19, MRNA-LNP, PF, 30 M CG/0.3 mL, 12 YRS AND ABOVE, IM (PFIZER-Comirnaty) 09/07/2024,07/13/2023 Covid-19, Mrna, Lnp-s, Pf, B ivalent, 30 Mcg, IM, 12 yrs and above (Pfizer) 10/14/2022 Pneumococcal Conjugate Vacc, 13 Valent (Prevnar) 10/25/2015,05/12/2015 Pneumococcal Conjugate Vacci ne, 20-valent ([id number]) 09/07/2024 Pneumococcal Conjugate Vacci ne, 7 Valent [...] Telephone Encounter - Karla Nielson LPN - 11/18/2024 3:11 PM EST Images from the original note were not included. John Ferrer DO [place], Ashley C, LPN Previous Messages ----- Message ----- From: Ranulfo Schumacher DO Sent: 11/17/2024 9:23 AM EST To: John Ferrer DO Subject: RE: eliquis hold Mr. French can hold Eliquis for 3 days prior to ZACHRAY Ranulfo Ch ----- Message ----- From: John Ferrer DO Sent: 11/15/2024 5:06 PM EST To: Ranulfo Schumacher DO; Florencia Chaidez DO; * Subject: eliquis hold Good afternoon, Does it remain relatively safe in terms of risk stratification for Mr. French to hold eliquis x 3 days for a lumbar epidural steroid injection? John Ch DO Interventional Pain Center, [facility] [address] [facility] [place] [address] documented in this encounter Plan of Treatment Upcoming Encounters Date Type Department Care Team (Late st Contact Info) Description 11/28/2024 2:20 PM EST Office Visit Family Practice [address] [place] [address] [address] [place] [address] Ranulfo Schumacher DO [address] [place] [address] Scheduled Procedures Name Priority Associated Diagnoses Date/Ti me INJECTION SPINE LUMBAR OR SACRAL Spinal stenosis of lumbar region without neurogenic claudication Health Maintenance Due Date Last Done Comments Adult Wellness Visit 09/10/2024 09/10/2023, 05/31/20 21 Albumin/Creatinine Ratio 01/10/2025 024, 03/27/2023, 05/26/2022, Additional history exists COVID-19 Vaccine (8 - Moderna risk season) 2025 09/07/2024, 07/13/2023, 10/14/2022, Additional history exists CKD PHOS USE SMARTSET 98153 08/30/2025 12/11/2023, 09/22/2023, 09/12/2022, Additional history exists Depression Screening 08/31/2025 08/31/2024, 08/30/20 24 CKD HGB USE SMARTSET 43894 10/20/202510/20, 10/20/2024, 08/30/2024, Additional history exists DTap/Tdap [...] this encounter Medical Devices Implanted Type Area Product Development Director Device Identifier Shelf Expiration Date Model / Serial / Lot Plug Mesh Small Hernia - [id number] Implanted:Qty: 1 on 12/28/2017 by Jorge Luis Krause MD at OR [facility] Right: Groin CR BARD : DAVOL 02/25/2019 [id number] / / [id number] documented as of this encounter Advance Directives Documents on File Type Date Recorded Patient Trap Setter Expl anation Power of Manager Hair 01/02/2023 Mukul banda signed on 01/02/2023 - Combined Living Will & Health Care POA Power of Manager Hair 11/27/2014 signed on 11/27/2014 Health Care POA & Living Will and "What If I had Dementia" worksheet Healthcare Agents on File Name Relationship Healthcare Agent Relationshi p Communication Mukul French Adult Child Health Care Agen t (per Health Care Power of Manager Hair document) Radhika bajwa Adult Child First Alternate Health Care Agent (per Health Care Power of Manager Hair document) Care Teams Application Defense Manager Relationship Specialty Start Date End Date Ranulfo Schumacher DO [address] [place] [address] PCP - General Internal Medicine 03/11/24 documented as of this encounter
--- OUTSIDE RECORDS SUMMARY | 2024-11-19 13:41 | External Medical Summary | Summary of Care ---
Author Name Unknown Organization [facility] Address [address] [place] [address] Phone [phone] Care Team Providers Care Photovoltaic Technician Name Role Phone Ranulfo Schumacher DO Primary Care Provider [phone] Reason for Visit * Reason Onset Date Comments Appointment 11/17/2024 Encounter Details Date Type Department Care Team (Late st Contact Info) Description 11/17/2024 Telephone Interventional Pain Center, [facility] [address] [facility] [place] [address] John Ferrer DO 132 [facility] [place] [address] Appointment Allergies Active Allergy Reactions Criticality Noted Date Comments Oxycodone 10/11/2020 caused heart to stopped--per patient documented as of this encounter (statuses as of 11/17/2024) Medications ASPIRIN EC 81 MG PO TBEC Take 1 Tablet by mouth every evening. Active MULTI VITAMIN/MINERALS PO TABS Take 1 Tablet by mouth in the morning. Active PREVIDENT 5000 BOOSTER PLUS 1.1 % DT PSTE [place] onto teeth. Special tooth paste 5 Active [...] as of this encounter (statuses as of 11/17/2024) Active Problems Problem Noted Date Diagnosed Date [...] as of this encounter (statuses as of 11/17/2024) Resolved Problems Problem Noted Date Diagnosed Date [...] as of this encounter (statuses as of 11/17/2024) Immunizations Name Administration Dates Next Due COVID-19 mRNA, LNP-s, No Pre serve, 2-Dose Series (Moderna) 07/17/2021,11/28/2020,11/01/2020 COVID-19, LNP-s, No Preserve , Cheng-sucrose, Ages 12+ (Precyse) 05/13/2022 COVID-19, MRNA-LNP, PF, 30 M CG/0.3 mL, 12 YRS AND ABOVE, IM (PFIZER-Comirnat) 09/07/2024,07/13/2023 Covid-19, Mrna, Lnp-s, Pf, B ivalent, 30 Mcg, IM, 12 yrs and above (Pfizer) 10/14/2022 Pneumococcal Conjugate Vacc, 13 Valent (Prevnar) 10/25/2015,05/12/2015 Pneumococcal Conjugate Vacci ne, 20-valent ([id number]) 09/07/2024 Pneumococcal Conjugate Vacci ne, 7 Valent [...] encounter Miscellaneous Notes * Telephone Encounter - Cherri Cardona OSA - 11/17/2024 1:28 PM EST Called and spoke with daughter Radhika, she is still unsure if patient will be able to make the drive to [place], she is going to call me back once a decision as been made. documented in this encounter Plan of Treatment Upcoming Encounters Date Type Department Care Team (Late st Contact Info) Description 11/28/2024 2:20 PM EST Office Visit Family Practice [address], [place] [address] [place] [address] Ranulfo Schumacher, [address] [place] [address] Scheduled Procedures Name Priority Associated Diagnoses Date/Ti me INJECTION SPINE LUMBAR OR SACRAL Spinal stenosis of lumbar region without neurogenic claudication Health Maintenance Due Date Last Done Comments Adult Wellness Visit 09/10/2024 09/10/2023, 05/31/20 21 Albumin/Creatinine Ratio 01/10/20252 024, 03/27/2023, 05/26/2022, Additional history exists COVID-19 Vaccine (8 - Moderna risk season) 2025 09/07/2024, 07/13/2023, 10/14/2022, Additional history exists CKD PHOS USE SMARTSET 11582 08/30/2025 12/0 11/2023, 09/22/2023, 09/12/2022, Additional history exists Depression Screening 08/31/2025 08/31/2024, 08/30/20 24 CKD HGB USE SMARTSET 54983 10/20/202510/20, 10/20/2024, 08/30/2024, Additional history exists DTap/Tdap [...] this encounter Medical Devices Implanted Type Area Sales Engineer Engineered Products Device Identifier Shelf Expiration Date Model / Serial / Lot Plug Mesh Small Hernia - [id number] Implanted:Qty: 1 on 12/28/2017 by Jorge Luis Krause MD at OR [facility] Right: Groin CR BARD : DAVOL 02/25/2019 [id number] / / [id number] documented as of this encounter Advance Directives Documents on File Type Date Recorded Patient Supervisor Steffen House Expl anation Power of Miner Placer 01/02/2023 Mukul banda signed on 01/02/2023 - Combined Living Will & Health Care POA Power of Miner Placer 11/27/2014 signed on 11/27/2014 Health Care POA & Living Will and "What If I had Dementia" worksheet Healthcare Agents on File Name Relationship Healthcare Agent Relationshi p Communication Mukul French Adult Child Health Care Agen t (per Health Care Power of Miner Placer document) Radhika bajwa Adult Child First Alternate Health Care Agent (per Health Care Power of Miner Placer document) Care Teams Photovoltaic Technician Relationship Specialty Start Date End Date Ranulfo Schumacher DO [address] [place] [address] PCP - General Internal Medicine 03/11/24 documented as of this encounter
--- OUTSIDE RECORDS SUMMARY | 2024-11-19 13:41 | External Medical Summary | Summary of Care ---
Author Name Unknown Organization [facility] Address [address] [place] [address] Phone [phone] Care Team Providers Care Ethylbenzene Cracking Supervisor Name Role Phone Ranulfo Schumacher DO Primary Care Provider [phone] Reason for Visit * Reason Onset Date Comments Advice 10/13/2024 Encounter Details Date Type Department Care Team (Late st Contact Info) Description 10/13/2024 Telephone Family Practice [facility] [address] [place] [address] Ranulfo Schumacher DO [address] [place] [address] Advice Allergies Active Allergy Reactions Criticality Noted Date Comments Oxycodone 10/11/2020 caused heart to stopped--per patient documented as of this encounter (statuses as of 11/17/2024) Medications ASPIRIN EC 81 MG PO TBEC Take 1 Tablet by mouth every evening. Active MULTI VITAMIN/MINERALS PO TABS Take 1 Tablet by mouth in the morning. Active PREVIDENT 5000 BOOSTER PLUS 1.1 % DT PSTE [place] onto teeth. Special tooth paste 09/28/19 15 [...] 200 Capsule 3 11/15/2024 12:17 PM EST 01/08/20 24 025 Active Meclizine HCl [...] by mouth every 6 hours as needed. 025 Discontin ued(Refil l) Citalopram Hydrobromide 20 MG Oral Tablet (CeleXA)Indicati ons:Anxiety TAKE ONE TABLET BY MOUTH DAILY IN THE MORNING. 100 Tablet 3 07/25/2024 10:21 AM EDT 09/10/20 025 Discontin ued(Refil l) Atorvastatin Calcium 40 MG Oral Tablet (Lipitor)Indicat ions:Dyslipidemi a, goal LDL below 130 TAKE ONE TABLET BY MOUTH EVERY DAY 100 Tablet 3 07/11/2024 11:07 AM EDT 09/11/20 23 025 Discontin ued(Refil l) Pantoprazole Sodium [...] 30 Mcg, IM, 12 yrs and above (Nimsoft) 10/14/2022 Pneumococcal Conjugate Vacc, 13 Valent (Prevnar) 10/25/2015,05/12/2015 Pneumococcal Conjugate Vacci ne, 20-valent ([id number]) 09/07/2024 Pneumococcal Conjugate Vacci ne, 7 Valent [...] Telephone Encounter - Tamy Harper LPN - 10/18/2024 3:14 PM EST Please see additional tele encounter. Was sent to DR Schumacher. Thank you * Telephone Encounter - Hoda Puente OSA - 10/18/2024 3:08 PM EST Patient is SOB and daughter would like to speak to a Nurse. * Telephone Encounter - Abi Crowley RT (R) - 10/13/2024 4:21 PM EST Patient's daughter Radhika Etienne calling to give Kiesha an update on Mor. Please return daughter's call at: Thank you. documented in this encounter Plan of Treatment Upcoming Encounters Date Type Department Care Team (Late st Contact Info) Description 11/28/2024 2:20 PM EST Office Visit Family Practice [address] [place] [address] [place] [address] Ranulfo Schumacher, [address] [place] [address] Scheduled Procedures Name Priority Associated Diagnoses Date/Ti me INJECTION SPINE LUMBAR OR SACRAL Spinal stenosis of lumbar region without neurogenic claudication Health Maintenance Due Date Last Done Comments Adult Wellness Visit 09/10/2024 09/10/2023, 05/31/20 21 Albumin/Creatinine Ratio 01/10/202501/10/2 024, 03/27/2023, 05/26/2022, Additional history exists COVID-19 Vaccine (8 - Moderna risk season) 2025 09/07/2024, 07/13/2023, 10/14/2022, Additional history exists CKD PHOS USE SMARTSET 94618 08/30/2025 12/0 11/2023, 09/22/2023, 09/12/2022, Additional history exists Depression Screening 08/31/2025 08/31/2024, 08/30/20 24 CKD HGB USE SMARTSET 91437 10/20/202510/20, 10/20/2024, 08/30/2024, Additional history exists DTap/Tdap [...] this encounter Medical Devices Implanted Type Area Assigner Device Identifier Shelf Expiration Date Model / Serial / Lot Plug Mesh Small Hernia - [id number] Implanted:Qty: 1 on 12/28/2017 by Jorge Luis Krause MD at OR [facility] Right: Groin CR BARD : DAVOL 02/25/2019 [id number] / / [id number] documented as of this encounter Advance Directives Documents on File Type Date Recorded Patient Home Extension Agent Expl anation Power of Controller Mechanic 01/02/2023 Mukul espinoza tts signed on 01/02/2023 - Combined Living Will & Health Care POA Power of Controller Mechanic 11/27/2014 signed on 11/27/2014 Health Care POA & Living Will and "What If I had Dementia" worksheet Healthcare Agents on File Name Relationship Healthcare Agent Relationshi p Communication Mukul French Adult Child Health Care Agen t (per Health Care Power of Controller Mechanic document) Radhika bajwa Adult Child First Alternate Health Care Agent (per Health Care Power of Controller Mechanic document) Care Teams Ethylbenzene Cracking Supervisor Relationship Specialty Start Date End Date Ranulfo Schumacher DO [address] [place] [address] PCP - General Internal Medicine 03/11/24 documented as of this encounter
--- OUTSIDE RECORDS SUMMARY | 2024-11-19 13:41 | External Medical Summary | Summary of Care ---
Author Name Unknown Organization [facility] Address [address] [place] [address] Phone [phone] Care Team Providers Care Self Propelled Dredge Operator Name Role Phone Ranulfo Schumacher DO Primary Care Provider [phone] Encounter Details Date Type Department Care Team (Late st Contact Info) Description 11/14/2024 1:30 PM EST Scheduled Telephone Care Coordination and Integration [address] [place] [address] Liat Gamez, Community Health Silviculturist [address] [place] [address] Allergies Active Allergy Reactions Criticality Noted Date Comments Oxycodone 10/11/2020 caused heart to stopped--per patient documented as of this encounter (statuses as of 11/14/2024) Medications ASPIRIN EC 81 MG PO TBEC Take 1 Tablet by mouth every evening. Active MULTI VITAMIN/MINERALS PO TABS Take 1 Tablet by mouth in the morning. Active PREVIDENT 5000 BOOSTER PLUS 1.1 % DT PSTE [place] onto teeth. Special tooth paste 5 Active [...] Capsule 3 08/01/2024 6:22 AM EST 4 02/22/20 25 Active Meclizine HCl 12.5 MG Oral [...] DAILY IN THE MORNING. 100 Tablet 3 5 11/14/19 26 Active Pantoprazole Sodium 40 MG Oral Tablet Delayed Release (Protonix)Indica tions:Gastroesop hageal reflux disease without esophagitis TAKE ONE TABLET BY MOUTH IN THE MORNING 100 Tablet 1 5 Active documented as of this encounter (statuses as of 11/14/2024) Active Problems Problem Noted Date Diagnosed Date [...] as of this encounter (statuses as of 11/14/2024) Resolved Problems Problem Noted Date Diagnosed Date [...] as of this encounter (statuses as of 11/14/2024) Immunizations Name Administration Dates Next Due COVID-19 [...] (Prevnar) 10/25/2015,05/12/2015 Pneumococcal Conjugate Vacci ne, 20-valent ([id number]) 09/07/2024 Pneumococcal Conjugate Vacci ne, 7 Valent [...] Progress Notes * Liat Gamez, Community Health Silviculturist - 11/14/2024 1:50 PM EST Telemedicine visit: No Community Health Silviculturist (JOSE ROBERTO) documentation: This CHW placed 3rd and final f/u PC to patient's son Mukul Gilman reported that there have been no changes in patient and patient's dementia continues to decline. Appears to be increased confusion. This CHW reviewed red flags with Mukul and encouraged Mukul to reach out to CM with any concerns or questions and confirmed Cm's contact info. Liat Gamez- Community Health Worker 1 Support Services/[facility] [employer] Plan [email or web address] documented in this encounter Plan of Treatment Upcoming Encounters Date Type Department Care Team (Late st Contact Info) Description 11/28/2024 2:20 PM EST Office Visit Family Practice [address] [place] [address] [place] [address] Ranulfo Schumacher, [address] [place] [address] Health Maintenance Due Date Last Done Comments Adult Wellness Visit 09/10/2024 09/10/2023, 05/31/20 21 Albumin/Creatinine Ratio 01/10/20252 024, 03/27/2023, 05/26/2022, Additional history exists COVID-19 Vaccine (8 - Moderna risk 2023- season) 2025 09/07/2024, 07/13/2023, 10/14/2022, Additional history exists CKD PHOS USE SMARTSET 09359 08/30/2025 1211/2023, 09/22/2023, 09/12/2022, Additional history exists Depression Screening 08/31/2025 08/31/2024, 08/30/20 24 CKD HGB USE SMARTSET 08202 10/20/202510/20, 10/20/2024, 08/30/2024, Additional history exists DTap/Tdap [...] this encounter Medical Devices Implanted Type Area Chemical Compounder Device Identifier Shelf Expiration Date Model / Serial / Lot Plug Mesh Small Hernia - [id number] Implanted:Qty: 1 on 12/28/2017 by Jorge Luis Krause MD at OR [facility] Right: Groin CR BARD : DAVOL 02/25/2019 [id number] / / [id number] documented as of this encounter Advance Directives Documents on File Type Date Recorded Patient Rn Forensic Expl anation Power of Patient Day Coordinator 01/02/2023 Mukul banda signed on 01/02/2023 - Combined Living Will & Health Care POA Power of Patient Day Coordinator 11/27/2014 signed on 11/27/2014 Health Care POA & Living Will and "What If I had Dementia" worksheet Healthcare Agents on File Name Relationship Healthcare Agent Relationshi p Communication Mukul French Adult Child Health Care Agen t (per Health Care Power of Patient Day Coordinator document) Radhika bajwa Adult Child First Alternate Health Care Agent (per Health Care Power of Patient Day Coordinator document) Care Teams Self Propelled Dredge Operator Relationship Specialty Start Date End Date Ranulfo Schumacher DO [address] [place] [address] PCP - General Internal Medicine 03/11/24 documented as of this encounter
--- OUTSIDE RECORDS SUMMARY | 2024-11-19 13:41 | External Medical Summary | Summary of Care ---
Author Name Unknown Organization [facility] Address [address] [place] [address] Phone [phone] Care Team Providers Care Direct Marketing Analyst Name Role Phone Winsome Ranulfo Beltran DO Primary Care Provider [phone] Encounter Details Date Type Department Care Team (Late st Contact Info) Description 11/03/2024 11:00 AM EST Scheduled Telephone Care Coordination and Integration [address] [place], [place] [id number] Liat Gamez, Community Health Brick Offbearer [address] [place] [address] Allergies Active Allergy Reactions Criticality Noted Date Comments Oxycodone 10/11/2020 caused heart to stopped--per patient documented as of this encounter (statuses as of 11/03/2024) Medications ASPIRIN EC 81 MG PO TBEC Take 1 Tablet by mouth every evening. Active MULTI VITAMIN/MINERALS PO TABS Take 1 Tablet by mouth in the morning. Active PREVIDENT 5000 BOOSTER PLUS 1.1 % DT PSTE [place] onto teeth. Special tooth paste 5 Active [...] as of this encounter (statuses as of 11/03/2024) Active Problems Problem Noted Date Diagnosed Date [...] as of this encounter (statuses as of 11/03/2024) Resolved Problems Problem Noted Date Diagnosed Date [...] as of this encounter (statuses as of 11/03/2024) Immunizations Name Administration Dates Next Due COVID-19 mRNA, LNP-s, No Pre serve, 2-Dose Series (Moderna) 07/17/2021,11/28/2020,11/01/2020 COVID-19, LNP-s, No Preserve , Cheng-sucrose, Ages 12+ (Pfizer) 05/13/2022 COVID-19, MRNA-LNP, PF, 30 M CG/0.3 mL, 12 YRS AND ABOVE, IM (PFIZER-Comirnat) 09/07/2024,07/13/2023 Covid-19, Mrna, Lnp-s, Pf, B ivalent, 30 Mcg, IM, 12 yrs and above (LocusLabs) 10/14/2022 Pneumococcal Conjugate Vacc, 13 Valent (Prevnar) 10/25/2015,05/12/2015 Pneumococcal Conjugate Vacci ne, 20-valent ([id number]) 09/07/2024 Pneumococcal Conjugate Vacci ne, 7 Valent [...] Progress Notes * Liat Gamez, Community Health Brick Offbearer - 11/03/2024 12:22 PM EST Telemedicine visit: No Community Health Brick Offbearer (JOSE ROBERTO) documentation: This CHW placed 1st f/u PC to patients son Mukul per CM's request Son Mukul reported that patient is doing much better and the antibiotics seemed to really help him. Is still having some chest pain but nothing worse or increased. Mukul reported patient is doing well and better. This CHW reviewed red flags with Mukul. Mukul was plowing snow at the time and was unable to write down CM's contact number. Mukul requested that this CHW text this info to him. This CHW encouraged Mukul to reach out to CM with any questions or concerns. Liat Gamez- Community Health Worker 1 Support Services/[facility] [place] Plan [email or web address] documented in this encounter Plan of Treatment Upcoming Encounters Date Type Department Care Team (Late st Contact Info) Description 11/28/2024 2:20 PM EST Office Visit Family Practice [address] [place] [address] [place] [address] Ranulfo Schumacher, DO [address] [place] [address] Health Maintenance Due Date Last Done Comments Adult Wellness Visit 09/10/2024 09/10/2023, 05/31/20 21 Albumin/Creatinine Ratio 01/10/2025 024, 03/27/2023, 05/26/2022, Additional history exists CKD PHOS USE SMARTSET 04798 08/30/2025 1211/2023, 09/22/2023, 09/12/2022, Additional history exists Depression Screening 08/31/2025 08/31/2024, 08/30/20 24 CKD HGB USE SMARTSET 43518 10/20/202510/20, 10/20/2024, 08/30/2024, Additional history exists DTap/Tdap [...] encounter Medical Devices Implanted Type Area Assistant Account Executive Device Identifier Shelf Expiration Date Model / Serial / Lot Plug Mesh Small Hernia - [id number] Implanted:Qty: 1 on 12/28/2017 by Jorge Luis Krause MD at OR [facility] Right: Groin CR BARD : DAVOL 02/25/2019 [id number] / / [id number] documented as of this encounter Advance Directives Documents on File Type Date Recorded Patient Hand Wood Sander Expl anation Power of Hair Preparer 01/02/2023 Mukul banda signed on 01/02/2023 - Combined Living Will & Health Care POA Power of Hair Preparer 11/27/2014 signed on 11/27/2014 Health Care POA & Living Will and "What If I had Dementia" worksheet Healthcare Agents on File Name Relationship Healthcare Agent Relationshi p Communication Mukul French Adult Child Health Care Agen t (per Health Care Power of Hair Preparer document) Radhika bajwa Adult Child First Alternate Health Care Agent (per Health Care Power of Hair Preparer document) Care Teams Direct Marketing Analyst Relationship Specialty Start Date End Date Ranulfo Schumacher DO [address] [place] [address] PCP - General Internal Medicine 03/11/24 documented as of this encounter
--- OUTSIDE RECORDS SUMMARY | 2024-11-19 13:42 | External Medical Summary | Summary of Care ---
Author Name Unknown Organization [facility] Address [address] [place] [address] Phone [phone] Care Team Providers Care Forepart Rounder Name Role Phone Ranulfo Schumacher DO Primary Care Provider [phone] Reason for Visit * Reason Onset Date Comments Test Results 10/20/2024 Encounter Details Date Type Department Care Team (Late st Contact Info) Description 10/20/2024 Telephone Family Practice [facility] [address] [place] [address] Ranulfo Schumacher DO [address] [place] [address] Test Results Allergies Active Allergy Reactions Criticality Noted Date Comments Oxycodone 10/11/2020 caused heart to stopped--per patient documented as of this encounter (statuses as of 10/23/2024) Medications ASPIRIN EC 81 MG PO TBEC Take 1 Tablet by mouth every evening. Active MULTI VITAMIN/MINERALS PO TABS Take 1 Tablet by mouth in the morning. Active PREVIDENT 5000 BOOSTER PLUS 1.1 % DT PSTE [place] onto teeth. Special tooth paste 09/28/19 15 [...] 07/25/2024 10:21 AM EDT 09/10/20 23 025 Active Apixaban 5 MG Oral Tablet (Eliquis)Indicat [...] 08/01/2024 6:29 PM EST 04/25/20 24 Active Pantoprazole Sodium 40 MG Oral Tablet Delayed Release (Protonix)Indica tions:Gastroesop hageal reflux disease without esophagitis TAKE ONE TABLET BY MOUTH IN THE MORNING 90 Tablet 1 08/06/2024 3:26 PM EST 05/17/20 24 025 Active Rollator Ultra-LightIndic ations:Lumbar degenerative disc disease,Degenera [...] Pain, Mild. 45 Tablet 10/04/19 25 Active busPIRone HCl 5 MG Oral Tablet (Buspar)Indicati ons:Anxiety Take 1 Tablet by mouth in the morning and 1 Tablet before bedtime. 60 Tablet 10/19/19 25 Active Albuterol Sulfate HFA 108 (90 Base) MCG/ACT Inhalation Aerosol SolutionIndicati ons:Shortness of breath Inhale 2 Puffs by mouth every 6 hours as needed for Shortness of Breath. 18 g 5 10/20/19 25 Active Cefdinir 300 MG Oral Capsule (Omnicef)Indicat ions:Pneumonia of left upper lobe due to infectious organism Take 1 Capsule by mouth in the morning and 1 Capsule before bedtime. Do all this for 10 days. 20 Capsule 10/20/19 25 025 Active Atorvastatin Calcium 40 MG Oral Tablet (Lipitor)Indicat ions:Dyslipidemi a, goal LDL below 130 TAKE ONE TABLET BY MOUTH EVERY DAY 100 Tablet 3 07/11/2024 11:07 AM EDT 09/11/20 23 025 Discontin ued(Refil l) Hospital, Clinic, or Other Facility Administered Medication Ordered Dose Route Frequency Start Date End Date Status sodium chloride 0.9 % flush/inj 10 mL 10 mL IV PUSH ONCE 10/20/2024 10/21/2024 Ended documented as of this encounter (statuses as of 10/23/2024) Active Problems Problem Noted Date Diagnosed Date [...] EDT): Regular today. Rate controlled. -continue Brisa Garveyqupierre Assessment & Plan (01/27/2023 10:32 AM EDT): Rate controlled -continue Jose Coreg Assessment & Plan (12/10/2022 6:20 PM EDT): Regular today. -continue Jose Garvey History of pulmonary embolism 10/21/2021 Assessment & [...] as of this encounter (statuses as of 10/23/2024) Resolved Problems Problem Noted Date Diagnosed Date [...] as of this encounter (statuses as of 10/23/2024) Immunizations Name Administration Dates Next Due COVID-19 [...] (Prevnar) 10/25/2015,05/12/2015 Pneumococcal Conjugate Vacci ne, 20-valent ([id number]) 09/07/2024 Pneumococcal Conjugate Vacci ne, 7 Valent [...] Telephone Encounter - Ranulfo Schumacher DO - 10/23/2024 9:25 AM EST Noted. * Telephone Encounter - Kiesha Moon RN - 10/21/2024 5:12 PM EST Mor started antibiotics last night; Is doing much better; slept full night; feeling rested. Has nutrition coordinator provider number for weekend if necessary. * Telephone Encounter - Ranulfo Schumacher DO - 10/20/2024 6:46 PM EST Possible Left upper lobe pneumonia on CT scan done today. Call and reviewed result with patient's son Mukul. Will sent Cefdinir to [facility] per family request. documented in this encounter Plan of Treatment Upcoming Encounters Date Type Department Care Team (Late st Contact Info) Description 10/26/2024 2:00 PM EST Scheduled Telephone [facility] [address] [place] [phone] [place] Nurse Phone Call [facility] [place] [address] [place] [address] 11/28/2024 2:20 PM EST Office Visit Family Practice [address] [place] [address] [address] [facility] [place] [address] [facility] [address] [facility] [address] Health Maintenance Due Date Last Done Comments Adult Wellness Visit 09/10/2024 09/10/2023, 05/31/20 21 Albumin/Creatinine Ratio 01/10/2025 024, 03/27/2023, 05/26/2022, Additional history exists CKD PHOS USE SMARTSET 40911 08/30/2025 1211/2023, 09/22/2023, 09/12/2022, Additional history exists Depression Screening 08/31/2025 08/31/2024, 08/30/20 24 CKD HGB USE SMARTSET 55462 10/20/202510/20, 10/20/2024, 08/30/2024, Additional history exists DTap/Tdap [...] this encounter Medical Devices Implanted Type Area Academic Coach Device Identifier Shelf Expiration Date Model / Serial / Lot Plug Mesh Small Hernia - [id number] Implanted:Qty: 1 on 12/28/2017 by Jorge Luis Krause MD at OR [facility] Right: Groin CR BARD : DAVOL 02/25/2019 [id number] / / [id number] documented as of this encounter Visit Diagnoses [...] of pulmonary embolism Vertigo Dizziness and giddiness Pneumonia of left upper lobe due to infectious organism- Primary documented in this encounter Advance Directives Documents on File Type Date Recorded Patient Size Worker Expl anation Power of Executive Producer 01/02/2023 Mukul banda signed on 01/02/2023 - Combined Living Will & Health Care POA Power of Executive Producer 11/27/2014 signed on 11/27/2014 Health Care POA & Living Will and "What If I had Dementia" worksheet Healthcare Agents on File Name Relationship Healthcare Agent [facility] p Communication Mukul French Adult Child Health Care Agen t (per Health Care Power of Executive Producer document) Radhika bajwa Adult Child First Alternate Health Care Agent (per Health Care Power of Executive Producer document) Care Teams Forepart Rounder Relationship Specialty Start Date End Date Ranulfo Schumacher DO [address] [place] [address] PCP - General Internal Medicine 03/11/24 documented as of this encounter
--- OUTSIDE RECORDS SUMMARY | 2024-11-19 13:42 | External Medical Summary | Summary of Care ---
Author Name Unknown Organization [facility] Address [address] [place] [address] Phone [phone] Care Team Providers Care Revenue Specialist Name Role Phone Charity Shcumacher DO Primary Care Provider [phone] Reason for Visit * Reason Comments Medication Refill Encounter Details Date Type Department Care Team (Late st Contact Info) Description 10/20/2024 Refill Family Practice [facility] [address] [place] [phone] Charity Schumacher DO [address] [place] [address] Dyslipidemia, goal LDL below 130 Allergies Active Allergy Reactions Criticality Noted Date Comments Oxycodone 10/11/2020 caused heart to stopped--per patient documented as of this encounter (statuses as of 10/21/2024) Medications ASPIRIN EC 81 MG PO TBEC Take 1 Tablet by mouth every evening. Active MULTI VITAMIN/MINERALS PO TABS Take 1 Tablet by mouth in the morning. Active PREVIDENT 5000 BOOSTER PLUS 1.1 % DT PSTE [place] onto teeth. Special tooth paste 09/28/19 15 [...] BY MOUTH EVERY DAY 100 Tablet 1 10/21/19 25 026 Active Cefdinir 300 MG Oral Capsule (Omnicef)Indicat [...] Tablet 3 07/11/2024 11:07 AM EDT 09/11/20 025 Discontin ued(Refil l) documented as of this encounter (statuses as of 10/21/2024) Active Problems Problem Noted Date Diagnosed Date [...] as of this encounter (statuses as of 10/21/2024) Resolved Problems Problem Noted Date Diagnosed Date [...] as of this encounter (statuses as of 10/21/2024) Immunizations Name Administration Dates Next Due COVID-19 [...] (Prevnar) 10/25/2015,05/12/2015 Pneumococcal Conjugate Vacci ne, 20-valent ([id number]) 09/07/2024 Pneumococcal Conjugate Vacci ne, 7 Valent [...] encounter Miscellaneous Notes * Telephone Encounter - Willy Ro formerly [facility] - 10/21/2024 8:01 AM ESTSigned Prescriptions: Disp Refills Atorvastatin Calcium 40 MG Oral Tablet (Li*100 Ta*1 Sig: TAKE ONE TABLET BY MOUTH EVERY DAYAuthorizing Provider: CHARITY SCHUMACHER AOrderjose User: WILLY RO------- documented in this encounter Plan of Treatment Upcoming Encounters Date Type Department Care Team (Late st Contact Info) Description 10/26/2024 2:00 PM EST Scheduled Telephone [facility] [address] [place] [phone] Lemus, Nurse Phone Call Interventional Pain [facility] [address] [place] [address] 11/28/2024 2:20 PM EST Office Visit Family Practice [address] [place] [address] [address] [place] [address] Charity Schumacher DO [address] [place] [address] Health Maintenance Due Date Last Done Comments Adult Wellness Visit 09/10/2024 09/10/2023, 05/31/20 21 Albumin/Creatinine Ratio 01/10/20252 024, 03/27/2023, 05/26/2022, Additional history exists CKD PHOS USE SMARTSET 27839 08/30/2025 12/0 11/2023, 09/22/2023, 09/12/2022, Additional history exists Depression Screening 08/31/2025 08/31/2024, 08/30/20 24 CKD HGB USE SMARTSET 09849 10/20/202510/20, 10/20/2024, 08/30/2024, Additional history exists DTap/Tdap [...] this encounter Medical Devices Implanted Type Area Water Softener Servicer And Installer Device Identifier Shelf Expiration Date Model / Serial / Lot Plug Mesh Small Hernia - [id number] Implanted:Qty: 1 on 12/28/2017 by Jorge Luis Krause MD at OR [facility] Right: Groin CR BARD : DAVOL 02/25/2019 [id number] / / [id number] documented as of this encounter Visit Diagnoses [...] of pulmonary embolism Vertigo Dizziness and giddiness Dyslipidemia, goal LDL below 130 Other and unspecified hyperlipidemia documented in this encounter Advance Directives Documents on File Type Date Recorded Patient Optical Fabrication Technician Expl anation Advance Directives and Living Will 01/02/2023 ADVANCE DIRECTIVE / LIVING WILL Power of Tufter Operator 01/02/2023 POWER OF A TTORNEY Advance Directives and Living Will 11/27/2014 ADVANCE DIRECTIVE / LIVING WILL Power of Tufter Operator 11/27/2014 POWER OF A TTORNEY Healthcare Agents on File Name Relationship Healthcare Agent [facility] p Communication Mukul French Adult Child Health Care Agen t (per Health Care Power of Tufter Operator document) Care Teams Revenue Specialist Relationship Specialty Start Date End Date Charity Schumacher DO [address] [place] [address] PCP - General Internal Medicine 03/11/24 documented as of this encounter
--- OUTSIDE RECORDS SUMMARY | 2024-11-19 13:42 | External Medical Summary ---
Author Name Unknown Address Unknown Organization K01:[place] [address] [place] [address] Laboratory Report Ordering Provider Test Date Status STEPHEN FERGUSON 10/20/2024 15:01:08 Final Observation Date Value Abnormality Reference (Units ) Status MYCODE SPECIMEN-SST 10/20/2024 15:01:08 Freezing of extracted DNA, whole blood and/or serum. Final Performing Location LABORATORY C - [address] [place] [address]
--- OUTSIDE RECORDS SUMMARY | 2024-11-19 13:42 | External Medical Summary | Summary of Care ---
Author Name Unknown Organization [facility] Address [address] [place] [address] Phone [phone] Care Team Providers Care Cloth Burler Name Role Phone Ranulfo Schumacher Devin MADDOX Primary Care Provider [phone] Reason for Visit * Reason Onset Date Comments STAIR Lung Nodule 11/02/2024 Encounter Details Date Type Department Care Team (Late st Contact Info) Description 11/02/2024 Telephone STAIR LUNG NODULE [address] [place], [place] [id number] Program, Stair [address] [place] [address] STAIR Lung Nodule Allergies Active Allergy Reactions Criticality Noted Date Comments Oxycodone 10/11/2020 caused heart to stopped--per patient documented as of this encounter (statuses as of 11/02/2024) Medications ASPIRIN EC 81 MG PO TBEC Take 1 Tablet by mouth every evening. Active MULTI VITAMIN/MINERALS PO TABS Take 1 Tablet by mouth in the morning. Active PREVIDENT 5000 BOOSTER PLUS 1.1 % DT PSTE [place] onto teeth. Special tooth paste 5 Active [...] as of this encounter (statuses as of 11/02/2024) Active Problems Problem Noted Date Diagnosed Date [...] as of this encounter (statuses as of 11/02/2024) Resolved Problems Problem Noted Date Diagnosed Date [...] as of this encounter (statuses as of 11/02/2024) Immunizations Name Administration Dates Next Due COVID-19 [...] (Prevnar) 10/25/2015,05/12/2015 Pneumococcal Conjugate Vacci ne, 20-valent ([id number]) 09/07/2024 Pneumococcal Conjugate Vacci ne, 7 Valent [...] encounter Miscellaneous Notes * Telephone Encounter - Pam Quintero LPN - 11/02/2024 8:33 AM EST Patient managed in STAIR Program for Pulmonary Nodule - banner added documented in this encounter Plan of Treatment Upcoming Encounters Date Type Department Care Team (Late st Contact Info) Description 11/28/2024 2:20 PM EST Office Visit Family Practice [address] [place] [address] [place] [address] Ranulfo Schumacher, 293 [facility], [place] [address] Health Maintenance Due Date Last Done Comments Adult Wellness Visit 09/10/2024 09/10/2023, 05/31/20 21 Albumin/Creatinine Ratio 01/10/2025 024, 03/27/2023, 05/26/2022, Additional history exists CKD PHOS USE SMARTSET 68971 08/30/202511/2023, 09/22/2023, 09/12/2022, Additional history exists Depression Screening 08/31/2025 08/31/2024, 08/30/20 24 CKD HGB USE SMARTSET 31434 10/20/202510/20, 10/20/2024, 08/30/2024, Additional history exists DTap/Tdap [...] encounter Medical Devices Implanted Type Area Manager Corporate Communications Device Identifier Shelf Expiration Date Model / Serial / Lot Plug Mesh Small Hernia - [id number] Implanted:Qty: 1 on 12/28/2017 by Jorge Luis Krause MD at OR [facility] Right: Ksenia CORDON BARD : LIN 02/25/2019 [id number] / / [id number] documented as of this encounter Advance Directives Documents on File Type Date Recorded 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 Director 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 anation Power of Roof Cement And Paint Maker Helper 01/02/2023 Mukul banda signed on 01/02/2023 - Combined Living Will & Health Care POA Power of Roof Cement And Paint Maker Helper 11/27/2014 signed on 11/27/2014 Health Care POA & Living Will and "What If I had Dementia" worksheet Healthcare Agents on File Name Relationship Healthcare Agent Relationshi p Communication Mukul French Adult Child Health Care Agen t (per Health Care Power of Roof Cement And Paint Maker Helper document) Radhika bajwa Adult Child First Alternate Health Care Agent (per Health Care Power of Roof Cement And Paint Maker Helper document) Care Teams Cloth Burler Relationship Specialty Start Date End Date Ranulfo Schumacher DO [address] [place] [address] PCP - General Internal Medicine 03/11/24 documented as of this encounter
--- OUTSIDE RECORDS SUMMARY | 2024-11-19 13:42 | External Medical Summary ---
Author Name Unknown Address Unknown Organization K01:LAB[facility]ATORY [facility] [place] - [address] [place] [address] Laboratory Report Ordering Provider Test Date Status STEPHEN FERGUSON 10/20/2024 15:01:08 Final Observation Date Value Abnormality Reference (Units ) Status MYCODE SPECIMEN-SST 10/20/2024 15:01:08 Freezing of extracted DNA, whole blood and/or serum. Final Performing Location LABORATORY C - [address] [place] [address]
--- OUTSIDE RECORDS SUMMARY | 2024-11-19 13:42 | External Medical Summary | Summary of Care ---
Author Name Unknown Organization [facility] Address [address] [place] [address] Phone [phone] Care Team Providers Care Head Golf Professional Name Role Phone Ranulfo Schumacher DO Primary Care Provider [phone] Reason for Visit * Reason Onset Date Comments Information 10/18/2024 Advice 10/18/202410/18 Encounter Details Date Type Department Care Team (Late st Contact Info) Description 10/18/2024 Telephone Family Practice [address] [facility] [place] [address] [place] [address] Ranulfo Schumacher DO [address] [place] [address] Information; Advice (10/18) Allergies Active Allergy Reactions Criticality Noted Date Comments Oxycodone 10/11/2020 caused heart to stopped--per patient documented as of this encounter (statuses as of 10/19/2024) Medications ASPIRIN EC 81 MG PO TBEC Take 1 Tablet by mouth every evening. Active MULTI VITAMIN/MINERALS PO TABS Take 1 Tablet by mouth in the morning. Active PREVIDENT 5000 BOOSTER PLUS 1.1 % DT PSTE [place] onto teeth. Special tooth paste 5 Active Tylenol 325 MG Oral Capsule (Acetaminophen) Take 650 mg by mouth every 6 hours as needed for Pain, Moderate (up to 3000 units per day). Active Magnesium Oxide 400 (240 Mg) MG Oral Tablet Take 1 Tablet by mouth at bedtime. Active Albuterol Sulfate HFA 108 (90 Base) [...] Tablet 3 07/11/2024 11:07 AM EDT 3 Active Apixaban 5 MG [...] differently: 6.25 mg Oral DAILY(1900), Reported on 10/14/2024 HYDROcodone-Acet aminophen 5-325 MG Oral TabletIndication s:Lumbar degenerative disc disease Take 1 Tablet by mouth every 6 hours as needed for Pain, Mild. 45 Tablet 5 Active Additional Information Patient not taking.Reported on 10/14/2024 busPIRone HCl 5 MG Oral Tablet (Buspar)Indicati ons:Anxiety Take 1 Tablet by mouth in the morning and 1 Tablet before bedtime. 60 Tablet 5 Active documented as of this encounter (statuses as of 10/19/2024) Active Problems Problem Noted Date Diagnosed Date [...] as of this encounter (statuses as of 10/19/2024) Resolved Problems Problem Noted Date Diagnosed Date [...] as of this encounter (statuses as of 10/19/2024) Immunizations Name Administration Dates Next Due COVID-19 [...] (Prevnar) 10/25/2015,05/12/2015 Pneumococcal Conjugate Vacci ne, 20-valent ([id number]) 09/07/2024 Pneumococcal Conjugate Vacci ne, 7 Valent [...] Telephone Encounter - Tamy Harper LPN - 10/19/2024 2:04 PM EST Called and spoke to daughter. Will pharmacy picking tech medication. Family feels this is anxiety related. Thank you * Telephone Encounter - Ranulfo Schumacher DO - 10/19/2024 1:45 PM EST Buspar ordered. * Telephone Encounter - Jocy Maharaj LPN - 10/18/2024 5:01 PM EST Verbally relayed this information to Dr. Schumacher. He states ok to keep appt scheduled on . Call placed to Radhika. Relayed information from Dr. Schumacher. She is agreeable to trying Buspar. She feels his issues are anxiety related. Pharmacy confirmed - [facility]. Medication pended - please verify this as routine BID. Also only pended 30 day supply with no refills. Please change if needed. * Telephone Encounter - Abi Crowley, RT (R) - 10/18/2024 4:06 PM EST Daughter Radhika returned Tamy's call and said Constantine is feeling much better and the family thinks it might be dementia related. Family does not feel it is necessary to take him to the hospital at this time. Return phone call may be made to Radhika. * Telephone Encounter - Jocy Maharaj LPN - 10/18/2024 4:01 PM EST Attempted to call daughter Radhika again. No answer - unable to leave message. * Telephone Encounter - Jocy Maharaj LPN - 10/18/2024 3:49 PM EST Attempted to call daughter Radhika - no answer. Unable to leave message - mailbox is full. Will try again later. * Telephone Encounter - Ranulfo Schumacher DO - 10/18/2024 3:22 PM EST NM stress done at [facility] this week was OK No hypoxia while hospitalized. Start Buspar 5 mg two times a day for anxiety / insomnia Schedule tomorrow Hospital follow up * Telephone Encounter - Tamy Harper LPN - 10/18/2024 3:12 PM EST Radhika calling states Mor is short of breath. Patient is currently at long term visiting , States he does get some tightness at times. No uri symptoms at all. Not able to sleep, struggling, up at night. documented in this encounter Plan of Treatment Upcoming Encounters Date Type Department Care Team (Late st Contact Info) Description 10/20/2024 11:20 AM EST Office Visit Family Practice [address] [place] [address] 293 [place] [phone] Ranulfo Schumacher, 293 [place] [address] 10/26/2024 2:00 PM EST Scheduled Tele[facility] [address] [place] [phone] Allan Nurse Phone Call Interventional [facility] [place] [address] [place] [address] 11/28/2024 2:20 PM EST Office Visit Family Practice [address] [place] [address] [address] [place] [phone] Ranulfo Schumacher, 293 [facility], [place] [address] Health Maintenance Due Date Last Done Comments Adult Wellness Visit 09/10/2024 09/10/2023, 05/31/20 21 Albumin/Creatinine Ratio 01/10/2025 024, 03/27/2023, 05/26/2022, Additional history exists CKD HGB USE SMARTSET 44918 08/30/202508/30, 08/30/2024, 03/18/2024, Additional history exists CKD PHOS USE SMARTSET 65371 08/30/202511/2023, 09/22/2023, 09/12/2022, Additional history exists Depression [...] this encounter Medical Devices Implanted Type Area Concrete Foreman Device Identifier Shelf Expiration Date Model / Serial / Lot Plug Mesh Small Hernia - [id number] Implanted:Qty: 1 on 12/28/2017 by Jorge Luis Krause MD at OR [facility] Right: Groin CR BARD : DAVOL 02/25/2019 [id number] / / [id number] documented as of this encounter Visit Diagnoses [...] of pulmonary embolism Vertigo Dizziness and giddiness Anxiety- Primary Anxiety state, unspecified documented in this encounter Advance Directives Documents on File Type Date Recorded 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 Roller Operator Hot Mix Expl anation Advance Directives and Living Will 01/02/2023 ADVANCE DIRECTIVE / LIVING WILL Power of Network Security Administrator 01/02/2023 POWER OF A TTORNEY Advance Directives and Living Will 11/27/2014 ADVANCE DIRECTIVE / LIVING WILL Power of Network Security Administrator 11/27/2014 POWER OF A TTORNEY Healthcare Agents on File Name Relationship Healthcare Agent [facility] Communication Mukul French Adult Child Health Care Agen t (per Health Care Power of Network Security Administrator document) Care Teams Head Golf Professional Relationship Specialty Start Date End Date Ranulfo Schumacher DO [address] [place] [address] PCP - General Internal Medicine 03/11/24 documented as of this encounter
--- OUTSIDE RECORDS SUMMARY | 2024-11-19 13:42 | External Medical Summary ---
Author Name Unknown Address Unknown Organization K0G:[facility]ATORY [facility] - [address] [place] [address] Laboratory Report Ordering Provider Test Date Status JUDSON NASH 10/20/2024 15:01:08 Final Observation Date Value Abnormality Reference (Units ) Status BUN 10/20/2024 15:01:08 17 6-20 (mg/dL) Final Creatinine 10/20/2024 15:01:08 1.3 Above high normal 0.6-1.2 (mg/dL) Final Glomerular filtration rate/1.73 sq M.predicted [Volume Rate/Area] in Serum, Plasma or Blood by Creatinine-based formula (CKD-EPI) 10/20/2024 15:01:08 52 Below low normal >=60 (mL/min) Final eGFR is calculated based on the CKD-EPI 2020 equation. Sodium 10/20/2024 15:01:08 137 135-146 (m mol/L) Final Potassium 10/20/2024 15:01:08 4.0 3.5-5.1 (m mol/L) Final Cl 10/20/2024 15:01:08 100 98-107 (mm ol/L) Final CO2 10/20/2024 15:01:08 25 22-32 (mmo l/L) Final Anion gap 10/20/2024 15:01:08 12 7-15 (mmol /L) Final Glucose 10/20/2024 15:01:08 96 70-120 (mg /dL) Final Albumin 10/20/2024 15:01:08 4.0 3.8-5.0 (g /dL) Final AST (Aspartate aminotransferase) 10/20/2024 15:01:08 15 10-50 (U/L) Final Alk Phos 10/20/2024 15:01:08 88 35-130 (U/ L) Final Bilirubin, Total 10/20/2024 15:01:08 0.5 <=1 .2 (mg/dL) Final Calcium 10/20/2024 15:01:08 9.5 8.4-10.2 ( mg/dL) Final Protein 10/20/2024 15:01:08 6.9 6.0-8.3 (g /dL) Final ALT (Alanine aminotransferase) 10/20/2024 15:01:08 18 10-50 (U/L) Final Performing Location LABORATORY [facility] 0 - [address] [facility] [address]
--- OUTSIDE RECORDS SUMMARY | 2024-11-19 13:42 | External Medical Summary ---
Author Name Unknown Address Unknown [facility] [address] [place] [address] Laboratory Report Ordering Provider Test Date Status JUDSON NASH 10/20/2024 15:01:08 Final Observation Date Value Abnormality Reference (Units ) Status SYNC LEUKOCYTES IN BLOOD BY AUTOMATED COUNT 10/20/2024 15:01:08 8.17 4.00-10.80 (K/uL) Final Segs 10/20/2024 15:01:08 61.4 40.0-75.0 (%) Final Lymphs % 10/20/2024 15:01:08 28.9 18.0-42.0 (%) Final Monos 10/20/2024 15:01:08 8.2 1.0-11.0 (%) Final Eosinophils 10/20/2024 15:01:08 1.3 0.0-6.0 (%) Final Basos 10/20/2024 15:01:08 0.2 0.0-2.0 (%) Final Absolute Segs 10/20/2024 15:01:08 5.01 1.80-7.70 (K/uL) Final Lymphs, absolute 10/20/2024 15:01:08 2.36 1.00-4.80 (K/ul) Final Monos, Abs 10/20/2024 15:01:08 0.67 0.00-1.10 (K/uL) Final Eos, Abs 10/20/2024 15:01:08 0.11 0.00-0.70 (K/uL) Final Basos, Abs 10/20/2024 15:01:08 0.02 0.00-0.20 (K/uL) Final Performing Location LAB[facility]ATORY [facility] - [address] [place] [address]
--- OUTSIDE RECORDS SUMMARY | 2024-11-19 13:42 | External Medical Summary | Summary of Care ---
Author Name Unknown Organization [facility] Address [address] [place] [address] Phone [phone] Care Team Providers Care Manager Furniture Name Role Phone Ranuflo Schumacher DO Primary Care Provider [phone] Reason for Referral * Evaluate & Treat - Unlimited Visits (Within 10 days (routine)) - Authorized Specialty Diagnoses / Procedures Referred By Contac t Referred To Contact Pulmonary Diseases / Pulmonary Diagnoses Pulmonary nodule, right Ranulfo Schumacher DO [address] [place] [address] Phone: tel: fax: Referral ID Status Reason Start Date Expiration Date Visits Requested Visits Authorized [id number] Authorized Specialty Services Required 11/01/2024 999 999 Question Answer Referral Priority Within 10 Days (Routine) Primary Reason for Referral? Lung Nodule/Mass Reason for Visit * Reason Onset Date Comments Test Results 11/01/202411/01 Encounter Details Date Type Department Care Team (Late st Contact Info) Description 11/01/2024 Telephone Family Practice [address] [facility], [place] [address] [place] [address] Ranulfo Schumacher DO [address] [place] [address] Test Results (11/01) Allergies Active Allergy Reactions Criticality Noted Date Comments Oxycodone 10/11/2020 caused heart to stopped--per patient documented as of this encounter (statuses as of 11/01/2024) Medications ASPIRIN EC 81 MG PO TBEC Take 1 Tablet by mouth every evening. Active MULTI VITAMIN/MINERALS PO TABS Take 1 Tablet by mouth in the morning. Active PREVIDENT 5000 BOOSTER PLUS 1.1 % DT PSTE [place] onto teeth. Special tooth paste 5 Active [...] 10:21 AM EDT 3 11/02/19 25 Active Apixaban 5 MG Oral Tablet (Eliquis)Indicat ions:PAF (paroxysmal atrial fibrillation) ([facility]),History of pulmonary embolism TAKE ONE TABLET BY [...] as of this encounter (statuses as of 11/01/2024) Active Problems Problem Noted Date Diagnosed Date [...] as of this encounter (statuses as of 11/01/2024) Resolved Problems Problem Noted Date Diagnosed Date [...] as of this encounter (statuses as of 11/01/2024) Immunizations Name Administration Dates Next Due COVID-19 [...] (Prevnar) 10/25/2015,05/12/2015 Pneumococcal Conjugate Vacci ne, 20-valent ([id number]) 09/07/2024 Pneumococcal Conjugate Vacci ne, 7 Valent [...] Telephone Encounter - Ranulfo Schumacher DO - 11/01/2024 1:21 PM EST Stair referral signed. * Telephone Encounter - Jocy Maharaj LPN - 11/01/2024 12:48 PM EST Call placed to patient's son Mukul and relayed information from Dr. Schumacher. Mukul acknowledged understanding. Agreeable to referral to STAIR program. States Mor is doing better, shortness of breath has improved. STAIR lung nodule referral pended. * Telephone Encounter - Jocy Maharaj LPN - 11/01/2024 12:44 PM EST ----- Message from Ranulfo Schumacher DO sent at 10/31/2024 9:20 PM EST ----- Patient treated for Pneumonia on 10/20. Small right pulmonary nodule is present. Refer to STAIR for recommendations on pulmonary nodule follow up. See if shortness of breath has improved. documented in this encounter Plan of Treatment Upcoming Encounters Date Type Department Care Team (Late st Contact Info) Description 11/28/2024 2:20 PM EST Office Visit Family Practice [address] [facility], [place] [address] [place] [address] Ranulfo Schumacher DO [address] [place] [address] Scheduled Referrals Name Type Priority Associated Diagnoses Order Schedule STAIR LUNG NODULE REFERRAL OP (SYSTEM FOR TRACKING ABNORMALITIES OF IMPORTANCE RELIABLY) Referral Within 10 days (routine) Pulmonary nodule, right Ordered: 11/01/2024 Health Maintenance Due Date Last Done Comments Adult Wellness Visit 09/10/2024 09/10/2023, 05/31/20 21 Albumin/Creatinine Ratio 01/10/2025 024, 03/27/2023, 05/26/2022, Additional history exists CKD PHOS USE SMARTSET 99135 08/30/202511/2023, 09/22/2023, 09/12/2022, Additional history exists Depression Screening 08/31/2025 08/31/2024, 08/30/20 24 CKD HGB USE SMARTSET 91069 10/20/202510/20, 10/20/2024, 08/30/2024, Additional history exists DTap/Tdap [...] encounter Medical Devices Implanted Type Area Rn Dermatology Device Identifier Shelf Expiration Date Model / Serial / Lot Plug Mesh Small Hernia - [id number] Implanted:Qty: 1 on 12/28/2017 by Jorge Luis Krause MD at OR [facility] Right: Groin CR BARD : DAVOL 02/25/2019 [id number] / / [id number] documented as of this encounter Visit Diagnoses [...] of pulmonary embolism Vertigo Dizziness and giddiness Pulmonary nodule, right- Primary Solitary pulmonary nodule documented in this encounter Advance Directives Documents on File Type Date Recorded 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 Power of Ophthalmic Tech 01/02/2023 Mukul banda signed on 01/02/2023 - Combined Living Will & Health Care POA Power of Ophthalmic Tech 11/27/2014 signed on 11/27/2014 Health Care POA & Living Will and "What If I had Dementia" worksheet Healthcare Agents on File Name Relationship Healthcare Agent Relationshi p Communication Mukul Gillian Adult Child Health Care Agen t (per Health Care Power of Ophthalmic Tech document) Radhika bajwa Adult Child First Alternate Health Care Agent (per Health Care Power of Ophthalmic Tech document) Care Teams Manager Furniture Relationship Specialty Start Date End Date Ranulfo Schumacher DO [address] [place] [address] PCP - General Internal Medicine 03/11/24 documented as of this encounter
--- OUTSIDE RECORDS SUMMARY | 2024-11-19 13:42 | External Medical Summary ---
Author Name Unknown Address Unknown Organization K0G:[facility] [address] [place] [id number] Laboratory Report Ordering Provider Test Date Status JUDSON NASH 10/20/2024 15:01:08 Final Observation Date Value Abnormality Reference (Units ) Status WBC, Total 10/20/2024 15:01:08 8.17 4.00-10.8 0 (K/uL) Final RBC 10/20/2024 15:01:08 4.57 4.50-5.25 (M/uL) Final Hemoglobin 10/20/2024 15:01:08 12.1 Below low normal 14 .0-16.8 (g/dL) Final HCT 10/20/2024 15:01:08 38.3 Below low normal 40. 0-48.4 (%) Final MCV 10/20/2024 15:01:08 83.8 82.0-99.5 (fL) Final MCH 10/20/2024 15:01:08 26.5 27.0-34.0 (pg) Final MCHC 10/20/2024 15:01:08 31.6 32.0-36.0 (g/dL) Final RDW 10/20/2024 15:01:08 15.4 11.5-15.5 (%) Final Platelets 10/20/2024 15:01:08 294 140-400 (K /uL) Final MPV 10/20/2024 15:01:08 9.1 6.6-11.1 ( fL) Final Performing Location [facility] [address] [place] [id number]
--- OUTSIDE RECORDS SUMMARY | 2024-11-19 13:42 | External Medical Summary | Summary of Care ---
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 Allergies Active Allergy Reactions Criticality Noted Date Comments Oxycodone 10/11/2020 caused heart to stopped--per patient documented as of this encounter (statuses as of 10/21/2024) Medications ASPIRIN EC 81 MG PO TBEC Take 1 Tablet by mouth every evening. Active MULTI VITAMIN/MINERALS PO TABS Take 1 Tablet by mouth in the morning. Active PREVIDENT 5000 BOOSTER PLUS 1.1 % DT PSTE [place] onto teeth. Special tooth paste 5 Active [...] for Pain, Mild. 45 Tablet 5 Active busPIRone HCl 5 MG Oral Tablet (Buspar)Indicati ons:Anxiety Take 1 Tablet by mouth in the morning and 1 Tablet before bedtime. 60 Tablet 5 Active Albuterol Sulfate HFA 108 [...] 3:18 PM EST 5 10/21/19 26 Active Cefdinir 300 MG Oral Capsule (Omnicef)Indicat ions:Pneumonia of left upper lobe due to infectious organism Take 1 Capsule by mouth in the morning and 1 Capsule before bedtime. Do all this for 10 days. 20 Capsule 5 10/30/19 25 Active documented as of this encounter [...] CG/0.3 mL, 12 YRS AND ABOVE, IM (Voices-Comirnaty) 09/07/2024,07/13/2023 Covid-19, Mrna, Lnp-s, Pf, B ivalent, 30 Mcg, IM, 12 yrs and above (Pfizer) 10/14/2022 Pneumococcal Conjugate Vacc, 13 Valent (Prevnar) 10/25/2015,05/12/2015 Pneumococcal Conjugate Vacci ne, 20-valent ([id number]) 09/07/2024 Pneumococcal Conjugate Vacci ne, 7 Valent [...] as of this encounter Miscellaneous Notes * ACP (Advance Care Planning) - Sandrine Theodore LCSW - 10/21/2024 4:58 PM EST Advance Care Planning { Advance Directive Documents [facility] MIKHAIL Review of Advance Directives scanned to chart; per requirements of [place] law (Act 169 of 2006) Document reviewed is Combined Living Will and Health Care Power of Half Section Ironer signed on 01/02/2023 which is scanned x2 to chart on 01/02/2023. Patient has an older Health Care Power of Half Section Ironer & Living Will, along with "What if I had Dementia" planning worksheet scanned to chart; signed on 11/27/2014. Additional comments: If appropriate, Health Care Agent contact information updated and advance directive document attached to support surrogate decision maker title. Changes made in Chicken Cutter to clarify Document Type and/or placement in Advance Directive Documents display. Duplicate documents have been moved to Media Tab Sandrine Oliver Hand Meat Salter General Email: [email or web address] documented in this encounter Plan of Treatment Upcoming Encounters Date Type Department Care Team (Late st Contact Info) Description 10/26/2024 2:00 PM EST Scheduled Tele[facility] [address] [place] [phone] Allan Nurse Phone Call Interventional Pain [facility] [address] [place] [address] 11/28/2024 2:20 PM EST Office Visit Family Practice [address] [place] [address] [address] [facility] [place] [address] Ranulfo Schumacher DO [address] [place] [address] Health Maintenance Due Date Last Done Comments Adult Wellness Visit 09/10/2024 09/10/2023, 05/31/20 21 Albumin/Creatinine Ratio 01/10/202501/10/ 024, 03/27/2023, 05/26/2022, Additional history exists CKD PHOS USE SMARTSET 19110 08/30/2025 12/0 11/2023, 09/22/2023, 09/12/2022, Additional history exists Depression Screening 08/31/2025 08/31/2024, 08/30/20 24 CKD HGB USE SMARTSET 65483 10/20/202510/20, 10/20/2024, 08/30/2024, Additional history exists DTap/Tdap [...] this encounter Medical Devices Implanted Type Area Cardiac Exercise Specialist Device Identifier Shelf Expiration Date Model / Serial / Lot Plug Mesh Small Hernia - [id number] Implanted:Qty: 1 on 12/28/2017 by Jorge Luis Krause MD at OR [facility] Right: Groin CR BARD : DAVOL 02/25/2019 [id number] / / [id number] documented as of this encounter Advance Directives Documents on File Type Date Recorded 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 Power of Half Section Ironer 01/02/2023 Mukul espinoza tts signed on 01/02/2023 - Combined Living Will & Health Care POA Power of Half Section Ironer 11/27/2014 signed on 11/27/2014 Health Care POA & Living Will and "What If I had Dementia" worksheet Healthcare Agents on File Name Relationship Healthcare Agent Relationshi p Communication Mukul French Adult Child Health Care Agen t (per Health Care Power of Half Section Ironer document) Radhika bajwa Adult Child First Alternate Health Care Agent (per Health Care Power of Half Section Ironer document) Care Teams Stripper Color Relationship Specialty Start Date End Date Ranulfo Schumacher DO [address] [place] [address] PCP - General Internal Medicine 03/11/24 documented as of this encounter
--- OUTSIDE RECORDS SUMMARY | 2024-11-19 13:42 | External Medical Summary | Summary of Care ---
Author Name Unknown Organization [facility] Address [address] [place] [address] Phone [phone] Care Team Providers Care Ship Runner Name Role Phone ShlomohajaRanulfo DO Primary Care Provider [phone] Reason for Visit * Reason Comments Outpatient Testing Encounter Details Date Type Department Care Team (Late st Contact Info) Description 10/20/2024 3:10 PM EST Laboratory Laboratory, [facility] [address] [place] [address] [facility] [address] [place] [address] Oncopeptides Other*[id number]; Shortness of breath Allergies Active Allergy Reactions Criticality Noted Date Comments Oxycodone 10/11/2020 caused heart to stopped--per patient documented as of this encounter (statuses as of 10/20/2024) Medications ASPIRIN EC 81 MG PO TBEC Take 1 Tablet by mouth every evening. Active MULTI VITAMIN/MINERALS PO TABS Take 1 Tablet by mouth in the morning. Active PREVIDENT 5000 BOOSTER PLUS 1.1 % DT PSTE [place] onto teeth. Special tooth paste 5 Active [...] of Breath. 18 g 5 5 Active documented as of this encounter (statuses as of 10/20/2024) Active Problems Problem Noted Date Diagnosed Date [...] as of this encounter (statuses as of 10/20/2024) Resolved Problems Problem Noted Date Diagnosed Date [...] as of this encounter (statuses as of 10/20/2024) Immunizations Name Administration Dates Next Due COVID-19 [...] (Prevnar) 10/25/2015,05/12/2015 Pneumococcal Conjugate Vacci ne, 20-valent ([id number]) 09/07/2024 Pneumococcal Conjugate Vacci ne, 7 Valent [...] Team (Late st Contact Info) Description 10/20/2024 4:15 PM EST Imaging Radiology [address] [place] [address] Shortness of breath 10/26/2024 2:00 PM EST Scheduled Telephone Interventional Pain Center [facility] [address] [place] [address] Allan Nurse Phone Call Interventional Pain [place] [address] [place] [address] 11/28/2024 2:20 PM EST Office Visit Family Practice [address] [place] [address] [address] [place] [address] Ranulfo Schumacher, [address] [facility] [address] Pending Results Name Type Priority Associated Diagnoses Date /Time MYCODE SUBSEQUENT ADULT Lab Routine MyCode Research Other*[id number] 10/20/2024 3:01 PM EST COMPREHENSIVE METABOLIC PANEL Lab STAT Shortness of breath 10/20/2024 3:01 PM EST CBC WITH WBC DIFFERENTIAL Lab STAT Shortness of breath 10/20/2024 3:01 PM EST MYCODE SST1 Lab Routine MyCode Research Other*[id number] 10/20/2024 3:01 PM EST MYCODE SST2 Lab Routine MyCode Research Other*[id number] 10/20/2024 3:01 PM EST CBC Lab STAT Shortness of breath 10/20/2024 3:01 PM EST DIFFERENTIAL, AUTOMATED Lab STAT Shortness of breath 10/20/2024 3:01 PM EST Health Maintenance Due Date Last Done Comments Adult Wellness Visit 09/10/2024 09/10/2023, 05/31/20 21 Albumin/Creatinine Ratio 01/10/20252 024, 03/27/2023, 05/26/2022, Additional history exists CKD HGB USE SMARTSET 87236 08/30/202508/30, 08/30/2024, 03/18/2024, Additional history exists CKD PHOS USE SMARTSET 01185 08/30/202511/2023, 09/22/2023, 09/12/2022, Additional history exists Depression [...] this encounter Medical Devices Implanted Type Area Corn Cutter Operator Device Identifier Shelf Expiration Date Model / Serial / Lot Plug Mesh Small Hernia - [id number] Implanted:Qty: 1 on 12/28/2017 by Jorge Luis Krause MD at OR [facility] Right: Groin CR BARD : DAVOL 02/25/2019 [id number] / / [id number] documented as of this encounter Visit Diagnoses [...] embolism Vertigo Dizziness and giddiness Shortness of breath MyCode Research Other*[id number] Shortness of breath documented in this encounter Advance Directives Documents on File Type Date Recorded Patient Blood Bank Order Control Clerk Expl anation Advance Directives and Living Will 01/02/2023 ADVANCE DIRECTIVE / LIVING WILL Power of Skilled Nursing Facilities Professional 01/02/2023 POWER OF A TTORNEY Advance Directives and Living Will 11/27/2014 ADVANCE DIRECTIVE / LIVING WILL Power of Skilled Nursing Facilities Professional 11/27/2014 POWER OF A TTORNEY Healthcare Agents on File Name Relationship Healthcare Agent Relationshi p Communication Mukul French Adult Child Health Care Agen t (per Health Care Power of Skilled Nursing Facilities Professional document) Care Teams Ship Runner Relationship Specialty Start Date End Date Ranulfo Schumacher DO [address] [place] [address] PCP - General Internal Medicine 03/11/24 documented as of this encounter
--- OUTSIDE RECORDS SUMMARY | 2024-11-19 13:42 | External Medical Summary | Summary of Care ---
Author Name Unknown Organization [facility] Address [address] [place] [address] Phone [phone] Care Team Providers Care Filling Carrier Name Role Phone Ranulfo Schumacher DO Primary Care Provider Reason for Visit * Reason Onset Date Comments Test Results 10/20/2024 Encounter Details Date Type Department Care Team (Late st Contact Info) Description 10/20/2024 Telephone Family Practice [address] [facility] [place] [address] [place] [address] Ranulfo Schumacher DO [address] [place] [address] Test Results Allergies Active Allergy [...] 5000 BOOSTER PLUS 1.1 % DT PSTE [place] onto teeth. Special tooth paste 09/28/19 15 [...] (Prevnar) 10/25/2015,05/12/2015 Pneumococcal Conjugate Vacci ne, 20-valent ([id number]) 09/07/2024 Pneumococcal Conjugate Vacci ne, 7 Valent [...] encounter Miscellaneous Notes * Telephone Encounter - Kiesha Moon RN - 10/21/2024 5:12 PM EST Mor started antibiotics last night; Is doing much better; slept full night; feeling rested. Has laboratory operations coordinator provider number for weekend if necessary. * Telephone Encounter - Ranulfo Schumacher DO - 10/20/2024 6:46 PM EST Possible Left upper lobe pneumonia on CT scan done today. Call and reviewed result with patient's son Mukul. Will sent Cefdinir to [facility] tonight per family request. documented in this encounter Plan of Treatment Upcoming Encounters Date Type Department Care Team (Late st Contact Info) Description 10/26/2024 2:00 PM EST Scheduled Telephone [facility] [address] [place] [phone] Allan Nurse Phone Call Interventional Pain [place] [address] [place] [address] 11/28/2024 2:20 PM EST Office Visit Family Practice [address] [place] [address] 293 [facility] [place] [address] Ranulfo Schumacher DO [address] [facility], [place] [address] Health Maintenance Due Date Last Done Comments Adult Wellness Visit 09/10/2024 09/10/2023, 05/31/20 21 Albumin/Creatinine Ratio 01/10/2025 024, 03/27/2023, 05/26/2022, Additional history exists CKD PHOS USE SMARTSET 18960 08/30/2025 12/0 11/2023, 09/22/2023, 09/12/2022, Additional history exists Depression Screening 08/31/2025 08/31/2024, 08/30/20 24 CKD HGB USE SMARTSET 71451 10/20/202510/20, 10/20/2024, 08/30/2024, Additional history exists DTap/Tdap [...] this encounter Medical Devices Implanted Type Area Political Consultant Device Identifier Shelf Expiration Date Model / Serial / Lot Plug Mesh Small Hernia - [id number] Implanted:Qty: 1 on 12/28/2017 by Jorge Luis Krause MD at OR [facility] Right: Groin CR BARD : DAVOL 02/25/2019 [id number] / / [id number] documented as of this encounter Visit Diagnoses [...] Documents on File Type Date Recorded 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 Power of Grapple Yarder Operator 01/02/2023 Mukul banda signed on 01/02/2023 - Combined Living Will & Health Care POA Power of Grapple Yarder Operator 11/27/2014 signed on 11/27/2014 Health Care POA & Living Will and "What If I had Dementia" worksheet Healthcare Agents on File Name Relationship Healthcare Agent Relationshi p Communication Mukul French Adult Child Health Care Agen t (per Health Care Power of Grapple Yarder Operator document) Radhika bajwa Adult Child First Alternate Health Care Agent (per Health Care Power of Grapple Yarder Operator document) Care Teams Filling Carrier Relationship Specialty Start Date End Date Ranulfo Schumacher DO [address] [facility] [place] [address] PCP - General Internal Medicine 03/11/24 documented as of this encounter
--- OUTSIDE RECORDS SUMMARY | 2024-11-19 13:42 | External Medical Summary | Summary of Care ---
Author Name Unknown Organization [facility] Address [address] [place] [address] Phone [phone] Care Team Providers Care Green Chain Off Bearer Name Role Phone Ranulfo Schumacher DO Primary Care Provider Reason for Referral * Precert (Within 24 hrs (call dept; emergent)) - Authorized Specialty Diagnoses / Procedures Referred By Contac t Referred To Contact Radiology Diagnoses Shortness of breath Procedures CT CHEST W CONTRAST Ranulfo Schumacher DO [address] [place] [address] Phone: tel: fax: Referral ID Status Reason Start Date Expiration Date V isits Requested Visits Authorized [id number] Authorized 10/20/2024 999 999 Reason for Visit * Reason Onset Date Comments Hospital Follow-Up Hospital Follow-Up 10/20/2024 Encounter Details Date Type Department Care Team (Late st Contact Info) Description 10/20/2024 11:20 AM EST Office Visit Family Practice [address] [facility], [place] [address] [place] [address] Ranulfo Schumacher DO [address] [place] [address] Shortness of breath*; PAF (paroxysmal atrial fibrillation) (HCC); Hypertensive kidney disease with stage 3a chronic kidney disease (HCC); Mixed Alzheimer's and vascular dementia (HCC); Migraine without aura and without status migrainosus, not intractable; STACEY (generalized anxiety disorder); Pure hypercholesterolemia; History of lung cancer; History of prostate cancer; Middle cerebral artery stenosis, right; Gastroesophageal reflux disease without esophagitis; Risk and functional assessment; Hospital discharge follow-up Allergies Active Allergy Reactions Criticality Noted Date Comments Oxycodone 10/11/2020 caused heart to stopped--per patient documented as of this encounter (statuses as of 10/23/2024) Medications ASPIRIN EC 81 MG PO TBEC Take 1 Tablet by mouth every evening. Active MULTI VITAMIN/MINERALS PO TABS Take 1 Tablet by mouth in the morning. Active PREVIDENT 5000 BOOSTER PLUS 1.1 % DT PSTE [place] onto teeth. Special tooth paste 09/28/19 15 [...] Oral Tablet (Eliquis)Indicat ions:PAF (paroxysmal atrial fibrillation) ([facility]),History of pulmonary embolism TAKE ONE [...] Breath. 18 g 5 10/20/19 25 Active Albuterol Sulfate HFA 108 (90 Base) MCG/ACT Inhalation Aerosol Solution Inhale 2 Puffs by mouth every 6 hours as needed. 025 Discontin ued(Refil l) Atorvastatin Calcium 40 MG Oral Tablet (Lipitor)Indicat ions:Dyslipidemi a, goal LDL below 130 TAKE ONE TABLET BY MOUTH EVERY DAY 100 Tablet 3 07/11/2024 11:07 AM EDT 09/11/20 23 025 Discontin ued(Refil l) documented as of [...] LNP-s, No Preserve , Cheng-sucrose, Ages 12+ (Croak.it) 05/13/2022 COVID-19, MRNA-LNP, PF, 30 M CG/0.3 mL, 12 YRS AND ABOVE, IM (PFIZER-Comirnat) 09/07/2024,07/13/2023 Covid-19, Mrna, Lnp-s, Pf, B ivalent, 30 Mcg, IM, 12 yrs and above (Pfizer) 10/14/2022 Pneumococcal Conjugate Vacc, 13 Valent (Prevnar) 10/25/2015,05/12/2015 Pneumococcal Conjugate Vacci ne, 20-valent ([id number]) 09/07/2024 Pneumococcal Conjugate Vacci ne, 7 Valent [...] Sign Reading Time Taken Comments Blood Pressure 120/78 10/20/2024 11:20 AM EST Pulse 91 10/20/2024 11:20 AM EST Temperature 36.3 C (97.4 F) 10/20/2024 11:[address] Respiratory Rate 24 10/20/2024 11:20 AM EST Oxygen Saturation 100% 10/20/2024 11:20 AM EST Inhaled Oxygen Concentration - - Weight 68.6 kg (151 lb 3.2 oz) 10/20/2024 11:20 AM EST Height 157.5 cm (5' 2") 10/20/2024 11:20 AM EST Body Mass Index 27.65 10/20/2024 11:20 AM EST documented in this encounter Patient Instructions * Patient Instructions* Bethany Mcdaniel CCMA - 10/20/2024 11:18 AM EST Patient Instructions - Fall Prevention (This [...] pathway between the bedroom and the bathroom [facility] Patient Education Copyright 2008 - 2010 [facility] except where otherwise noted Preventing Falls: Exercises [...] 10 times. Repeat this throughout the day. [employer] Patient Education Copyright 2009 - 2010 [employer] except where otherwise noted. Preventing Falls: Moving [...] encounter Progress Notes * Ranulfo Schumacher, - 10/20/2024 11:47 AM EST SUBJECTIVE: Mor French is a 84 year old male. Chief Complaint Patient presents with Hospital Follow-Up Hospital Follow-Up Recent Admission: Patient was recently admitted to [facility]. The date of discharge was 10/13/2024.Discharge report received and reviewed. HPI: Patient is an 84 year old male with a history of Atrial Fibrillation, COPD, GERD, Mixed Dementia, bilateral Carpal Tunnel Syndrome, Lumbar DDD, Prostate Cancer treated with Prostatectomy, Lung Cancertreated with right middle lobectomy, bilateral Pulmonary Emboli, right [place]ine CVA, left Internal Capsule / Thalamic CVA, and right MCA Stenosis that is seen for hospital follow up. The patient was admitted for worsening shortness of breath with exertion with associated chest tightness. Patient hasnew LBBB on EKG. NM stress was done during hospitalization and stress test was normal. The patient has continued shortness of breath with exertion. He has been walking slower due to the shortness of breath. No chest pain is present. Weight is stable and appetite is good. Memory loss continues to worsen slowly per his son. He was brought to the visit by his son who assists with history. Patient Active Problem List Diagnosis History of [...] disease with stage 3a chronic kidney disease ([facility]) Current Outpatient Medications Medication Sig Dispense Refill ASPIRIN EC 81 MG PO TBEC Take 1 Tablet by mouth every evening. MULTI VITAMIN/MINERALS PO TABS Take 1 Tablet by mouth in the morning. PREVIDENT 5000 BOOSTER PLUS 1.1 % DT PSTE [place] onto teeth. Special tooth paste Tylenol 325 MG Oral Capsule (Acetaminophen) Take 650 mg by mouth every 6 hours as needed for Pain, Moderate (up to 3000 units per day). Magnesium Oxide 400 (240 Mg) MG Oral Tablet Take 1 Tablet by mouth at bedtime. Albuterol Sulfate HFA 108 (90 Base) MCG/ACT Inhalation Aerosol Solution Inhale 2 Puffs by mouth every 6 hours as needed. Citalopram Hydrobromide 20 MG Oral Tablet (CeleXA) TAKE ONE TABLET BY MOUTH DAILY IN THE MORNING. 100 Tablet 3 Apixaban 5 MG Oral [...] MOUTH IN THE MORNING 90 Tablet 1 Carvedilol 6.25 MG Oral Tablet (Coreg) TAKE ONE TABLET BY MOUTH EVERY MORNING (Patient taking differently: Take 1 Tablet by mouth every evening.) 100 Tablet 3 HYDROcodone-Acetaminophen 5-325 MG Oral Tablet Take 1 Tablet by mouth every 6 hours as needed for Pain, Mild. 45 Tablet 0 busPIRone HCl 5 MG Oral Tablet (Buspar) Take 1 Tablet by mouth in the morning and 1 Tablet before bedtime. 60 Tablet 0 Atorvastatin Calcium 40 MG Oral Tablet (Lipitor) TAKE ONE TABLET BY MOUTH EVERY DAY 100 Tablet 3 Rollator Ultra-Light Use daily for adl's and to prevent falls. 1 Each 0 No current facility-administered medications for this visit. Current and discharge medications have been reconciled. Review of patient's allergies indicates: Allergen Reactions Oxycodone caused heart to stopped--per patient OBJECTIVE: BP 120/78 (BP Site: Right Arm, BP Position: Sitting, BP Cuff Size: Regular) | Pulse 91 | Temp 97.4 F (36.3 C) | Resp 24 | Ht 5' 2" (1.575 m) | Wt 151 lb 3.2 oz (68.6 kg) | SpO2 100% | BMI 27.65 kg/m | BSA 1.73 m REVIEW OF SYSTEMS: Review of Systems Constitutional: Positive for fatigue. Negative for appetite change, chills, fever and unexpected weight change. HENT: Negative for congestion, sore throat and trouble swallowing. Respiratory: Positive for shortness of breath. Negative for cough and wheezing. Cardiovascular: Positive for chest pain. Negative for palpitations and leg swelling. Gastrointestinal: Negative for abdominal pain, blood in stool, constipation, diarrhea, nausea and vomiting. Genitourinary: Negative for dysuria, frequency and hematuria. Musculoskeletal: Positive for back pain and gait problem. Psychiatric/Behavioral: Positive for confusion, decreased concentration and sleep disturbance. PHYSICAL EXAM: BP 120/78 (BP Site: Right Arm, BP Position: Sitting, BP Cuff Size: Regular) | Pulse 91 | Temp 97.4 F (36.3 C) | Resp 24 | Ht 5' 2" (1.575 m) | Wt 151 lb 3.2 oz (68.6 kg) | SpO2 100% | BMI 27.65 kg/m | BSA 1.73 m Physical Exam Vitals and nursing note reviewed. Constitutional: Appearance: Normal appearance. HENT: Head: Normocephalic and atraumatic. Cardiovascular: Rate [...] No edema. Neurological: Mental Status: He is alert. Mental status is at baseline. Motor: No weakness. Gait: Gait abnormal. Psychiatric: Cognition and Memory: Cognition is impaired. Memory is impaired. ASSESSMENT/PLAN Shortness of breath (Primary) - Albuterol Sulfate HFA 108 (90 Base) MCG/ACT Inhalation Aerosol Solution; Inhale 2 Puffs by mouth every 6 hours as needed for Shortness of Breath. - PULSE OX W/ REST/EXERCISE, MULTIPLE (OP) - COMPREHENSIVE METABOLIC PANEL; Future; Expected date: 10/20/2024 - CBC WITH WBC DIFFERENTIAL; Future; Expected date: 10/20/2024 - CT CHEST W CONTRAST; Future; Expected date: 10/20/2024 PAF (paroxysmal atrial fibrillation) (HCC) Continue Apixaban and Carvedilol Hypertensive kidney disease with stage 3a chronic kidney disease (HCC) Continue Carvedilol Mixed Alzheimer's and vascular dementia (HCC) Migraine without aura and without status migrainosus, not intractable STACEY (generalized anxiety disorder) Buspar started yesterday Continue Citalopram Pure hypercholesterolemia History of lung cancer Treated surgically History of prostate cancer Treated with Prostatectomy Middle cerebral artery stenosis, right Gastroesophageal reflux disease without esophagitis Risk and functional assessment Hospital discharge follow-up - DISCH MED RECON CUR MED LIS Follow Up: Return in about 6 weeks (around 11/28/2024), or if symptoms worsen or fail to improve. Ranulfo Schumacher DO documented in this encounter Nursing Notes * Bethany Mcdaniel CCMA - 10/20/2024 12:10 PM EST Did ambulatory walk with patient. Starting oxygen 99% Pulse 78. Walked half a tetlin and patient needed to sit. Oxygen 97% pulse 90. Pt sat for a minute an finished the tetlin with pulse ox staying the same. Did another half a tetlin, oxygen 97%, pulse 81. Took patient back to the room with pulse ox maintained. * Bethany Mcdaniel CCMA - 10/20/2024 11:20 AM EST Chief Complaint Patient presents with Emergency Department Follow-Up Pt here for ED follow up - breathing has not getting better, tightness. Does have a cough and nasalcongestion. documented in this encounter Plan of Treatment Upcoming Encounters Date Type Department Care Team (Late st Contact Info) Description 10/26/2024 2:00 PM EST Scheduled Telephone [facility] [address] [place] [phone] Allan Nurse Phone Call Inter[facility] [address] [place] [address] 11/28/2024 2:20 PM EST Office Visit Family Practice [address] [place] [address] [address] [place] [address] Ranulfo Schumacher DO [address] [place] [address] Scheduled Orders Name Type Priority Associated Diagnoses Orde r Schedule PULSE OX W/ REST/EXERCISE, MULTIPLE (OP) Procedures Routine Shortness of breath Ordered: 10/20/2024 Health Maintenance Due Date Last Done Comments Adult Wellness Visit 09/10/2024 09/10/2023, 05/31/20 21 Albumin/Creatinine Ratio 01/10/2025 024, 03/27/2023, 05/26/2022, Additional history exists CKD PHOS USE SMARTSET 64683 08/30/202511/2023, 09/22/2023, 09/12/2022, Additional history exists Depression Screening 08/31/2025 08/31/2024, 08/30/20 24 CKD HGB USE SMARTSET 99785 10/20/202510/20, 10/20/2024, 08/30/2024, Additional history exists DTap/Tdap [...] this encounter Medical Devices Implanted Type Area Jigman Device Identifier Shelf Expiration Date Model / Serial / Lot Plug Mesh Small Hernia - [id number] Implanted:Qty: 1 on 12/28/2017 by Jorge Luis Krause MD at OR [facility] Right: Groin CR BARD : DAVOL 02/25/2019 [id number] / / [id number] documented as of this encounter Results * CT CHEST W CONTRAST (10/20/2024 4:25 PM EST) Anatomical Region Laterality Modality Chest, Body, Cardio Computed Thomas ography 10/20/2024 4:59 PM EST Impressions 10/20/2024 4:57 PM EST IMPRESSION 1. A few subtle patchy left upper lobe ground-glass opacities, nonspecific, may be infectious/inflammatory in etiology. 2. A new right upper lobe nodule measures 4 millimeters. Given this patient's history of malignancy, this nodule is considered indeterminate. 3. Emphysematous changes. 4. Coronary artery calcifications. 5. Moderate-sized hiatal hernia. 6. A hypodense lesion at the anterior aspect of the hepatic dome measures approximately 1.5 cm, indeterminate but not significantly changed dating back to 2020. MRI abdomen with and without contrast may be considered for further evaluation if clinically warranted. Narrative 10/20/2024 4:57 PM EST EXAM EXAM: CT CHEST W CONTRAST DATE TIME: 10/20/2024 - 10/20/2024 4:25 pm HISTORY 84 y/o M Shortness of breath TECHNIQUE CT chest was performed with IV contrast COMPARISON Chest radiograph 08/30/2024. CT chest 07/31/2021. FINDINGS LUNGS AND LARGE AIRWAYS: Patent central airways. Emphysematous changes. Right middle lobectomy. Scarring at the lateral aspect of the right lung base. A new right upper lobe nodule measures 4 millimeters (14, 109). A few subtle patchy left upper lobe ground-glass opacities. PLEURA: No pleural effusion. VESSELS: Normal caliber thoracic aorta and main pulmonary artery. Atherosclerotic changes of the aorta. Coronary artery calcifications. HEART: Heart is normal in size. No pericardial effusion. MEDIASTINUM AND TAMMI: No lymphadenopathy. CHEST WALL AND LOWER NECK: Left chest wall loop recorder. VISUALIZED UPPER ABDOMEN: Moderate-sized hiatal hernia. A hypodense lesion at the anterior aspect of the hepatic dome measures approximately 1.5 cm, indeterminate but not significantly changed dating back to 2020 (14, 184). A couple of additional subcentimeter hypodense hepatic foci are too small to characterize (14, 212). Partially imaged low-attenuation left renal lesion. An intermediate density right renal lesion measures approximately 2.4 cm, not significantly changed dating back to 2020, indeterminate on the basis of this exam but previously characterized as a cyst on renal ultrasound dated 08/05/2020 (14, 318). BONES: Left shoulder arthroplasty. Degenerative changes of the spine. T6 vertebral body hemangioma. Grade 1 retrolisthesis of L1 on L2. Procedure Note Chloé Oreilly MD - 10/20/2024 EXAM EXAM: CT CHEST W CONTRAST DATE TIME: 10/20/2024 - 10/20/2024 4:25 pm HISTORY 84 y/o M Shortness of breath TECHNIQUE CT chest was performed with IV contrast COMPARISON Chest radiograph 08/30/2024. CT chest 07/31/2021. FINDINGS LUNGS AND LARGE AIRWAYS: Patent central airways. Emphysematous changes.Right middle lobectomy. Scarring at the lateral aspect of the right lungbase. A new right upper lobe nodule measures 4 millimeters (14, 109). Afew subtle patchy left upper lobe ground-glass opacities. PLEURA: No pleural effusion. VESSELS: Normal caliber thoracic aorta and main pulmonary artery.Atherosclerotic changes of the aorta. Coronary artery calcifications. HEART: Heart is normal in size. No pericardial effusion. MEDIASTINUM AND TAMMI: No lymphadenopathy. CHEST WALL AND LOWER NECK: Left chest wall loop recorder. VISUALIZED UPPER ABDOMEN: Moderate-sized hiatal hernia. A hypodenselesion at the anterior aspect of the hepatic dome measures approximately1.5 cm, indeterminate but not significantly changed dating back to 2020(14, 184). A couple of additional subcentimeter hypodense hepatic fociare too small to characterize (14, 212). Partially imaged low-attenuationleft renal lesion. An intermediate density right renal lesion measuresapproximately 2.4 cm, not significantly changed dating back to 2020,indeterminate on the basis of this exam but previously characterized as acyst on renal ultrasound dated 08/05/2020 (14, 318). BONES: Left shoulder arthroplasty. Degenerative changes of the spine. I5wltwvmgec body hemangioma. Grade 1 retrolisthesis of L1 on L2. IMPRESSION IMPRESSION 1. A few subtle patchy left upper lobe ground-glass opacities,nonspecific, may be infectious/inflammatory in etiology. 2. A new right upper lobe nodule measures 4 millimeters. Given thispatient's history of malignancy, this nodule is consideredindeterminate. 3. Emphysematous changes. 4. Coronary artery calcifications. 5. Moderate-sized hiatal hernia. 6. A hypodense lesion at the anterior aspect of the hepatic dome measuresapproximately 1.5 cm, indeterminate but not significantly changed datingback to 2020. MRI abdomen with and without contrast may be considered forfurther evaluation if clinically warranted. us Ranulfo Schumacher DO RAD CT Final Result * (ABNORMAL) COMPREHENSIVE METABOLIC PANEL (10/20/2024 3:01 PM EST) BUN 17 6 - 20 mg/dL 10/20/2024 3:37 PM EST [facility] CREATININE 1.3(H) 0.6 - 1.2 mg/dL 10/20/2024 3:37 PM EST [facility] EGFR 52(L) >=60 mL/min 10/20/2024 3:37 PM EST [facility] Comment:eGFR is calculated b ased on the CKD-EPI 2020 equation. SODIUM 137 135 - 146 mmol/L 10/20/2024 3:37 PM EST [facility] POTASSIUM 4.0 3.5 - 5.1 mmol/L 10/20/2024 3:37 PM EST [facility] CHLORIDE 100 98 - 107 mmol/L 10/20/2024 3:37 PM EST [facility] CO2 25 22 - 32 mmol/L 10/20/2024 3:37 PM EST [facility] ANION GAP 12 7 - 15 mmol/L 10/20/2024 3:37 PM EST [facility] GLUCOSE 96 70 - 120 mg/dL 10/20/2024 3:37 PM EST [facility] Albumin 4.0 3.8 - 5.0 g/dL 10/20/2024 3:37 PM EST [facility] AST 15 10 - 50 U/L 10/20/2024 3:37 PM EST [facility] Alkaline Phosphatase 88 35 - 130 U/L 10/20/2024 3:37 PM EST [facility] Bilirubin, Total 0.5 <=1.2 mg/dL 10/20/2024 3:37 PM EST [facility] CALCIUM 9.5 8.4 - 10.2 mg/dL 10/20/2024 3:37 PM EST [facility] Protein 6.9 6.0 - 8.3 g/dL 10/20/2024 3:37 PM EST [facility] ALT 18 10 - 50 U/L 10/20/2024 3:37 PM EST [facility] Blood Venous blood specimen / Unknown Venipuncture / Unknown 10/20/2024 3:01 PM EST 10/20/2024 3:01 PM EST us Ranulfo Schumacher DO LAB BLOOD ORDERABLES Final Res ult [facility] [place] [address] documented in this encounter Visit Diagnoses Diagnosis [...] Dizziness and giddiness Shortness of breath- Primary PAF (paroxysmal atrial fibrillation) (HCC) Atrial fibrillation Hypertensive kidney disease with stage 3a chronic kidney disease (HCC) Mixed Alzheimer's and vascular dementia (HCC) Alzheimer's disease Migraine without aura and without status migrainosus, not intractable Migraine without aura, without mention of intractable migraine without mention of status migrainosus STACEY (generalized anxiety disorder) Generalized anxiety disorder Pure hypercholesterolemia History of lung cancer Personal history of malignant neoplasm of bronchus and lung History of prostate cancer Personal history of malignant neoplasm of prostate Middle cerebral artery stenosis, right Gastroesophageal reflux disease without esophagitis Esophageal reflux Risk and functional assessment Screening for unspecified condition Hospital discharge follow-up Other follow-up examination Shortness of breath documented in this encounter Advance Directives Documents on File Type Date Recorded 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 Power of Rental Car Porter 01/02/2023 Mukul banda signed on 01/02/2023 - Combined Living Will & Health Care POA Power of Rental Car Porter 11/27/2014 signed on 11/27/2014 Health Care POA & Living Will and "What If I had Dementia" worksheet Healthcare Agents on File Name Relationship Healthcare Agent Relationshi p Communication Mukul Gillian Adult Child Health Care Agen t (per Health Care Power of Rental Car Porter document) Radhika bajwa Adult Child First Alternate Health Care Agent (per Health Care Power of Rental Car Porter document) Care Teams Green Chain Off Bearer Relationship Specialty Start Date End Date Ranulfo Schumacher DO [address] [place] [address] PCP - General Internal Medicine 03/11/24 documented as of this encounter
--- OUTSIDE RECORDS SUMMARY | 2024-11-19 13:43 | External Medical Summary | Summary of Care ---
Author Name Unknown Organization [facility] Address [address] [place] [address] Phone [phone] Care Team Providers Care Hospice Patient Care Secretary Name Role Phone Ranulfo Schumacher DO Primary Care Provider [phone] Reason for Visit * Reason Onset Date Comments Triage Advice 10/12/2024 Encounter Details Date Type Department Care Team (Late st Contact Info) Description 10/12/2024 Telephone Family Practice 65 [facility] [address] [place] [address] Ranulfo Schumacher DO [address] [place], [place] [id number] Triage Advice Allergies Active Allergy Reactions Criticality Noted Date Comments Oxycodone 10/11/2020 caused heart to stopped--per patient documented as of this encounter (statuses as of 10/13/2024) Medications ASPIRIN EC 81 MG PO TBEC Take 1 Tablet by mouth every evening. Active MULTI VITAMIN/MINERALS PO TABS Take 1 Tablet by mouth in the morning. Active PREVIDENT 5000 BOOSTER PLUS 1.1 % DT PSTE [place] onto teeth. Special tooth paste 5 Active [...] as of this encounter (statuses as of 10/13/2024) Active Problems Problem Noted Date Diagnosed Date [...] as of this encounter (statuses as of 10/13/2024) Resolved Problems Problem Noted Date Diagnosed Date [...] as of this encounter (statuses as of 10/13/2024) Immunizations Name Administration Dates Next Due COVID-19 [...] (Prevnar) 10/25/2015,05/12/2015 Pneumococcal Conjugate Vacci ne, 20-valent ([id number]) 09/07/2024 Pneumococcal Conjugate Vacci ne, 7 Valent [...] No 08/31/2024 Are you (or your family) daelaida eless or worried that you might be [...] Telephone Encounter - Tamy Harper LPN - 10/13/2024 2:18 PM EST Patient is currently at [facility]> Thank you * Telephone Encounter - Ranulfo [...] PM EST Scheduled Telephone Interventional Pain Center [facility] [address] [place] [phone] Allan, Nurse Phone Call Yumiko Ford [address] [place] [address] 11/28/2024 2:20 PM EST Office Visit Family Practice [address] [place] [address] [place] [address] Ranulfo Schumacher, [address] [facility], [place] [address] Health Maintenance Due Date Last Done Comments Adult Wellness Visit 09/10/2024 09/10/2023, 05/31/20 21 Albumin/Creatinine Ratio 01/10/2025 024, 03/27/2023, 05/26/2022, Additional history exists CKD HGB USE SMARTSET 13911 08/30/202508/30, 08/30/2024, 03/18/2024, Additional history exists CKD PHOS USE SMARTSET 37628 08/30/2025 1211/2023, 09/22/2023, 09/12/2022, Additional history exists [...] this encounter Medical Devices Implanted Type Area Drop Crew Laborer Device Identifier Shelf Expiration Date Model / Serial / Lot Plug Mesh Small Hernia - [id number] Implanted:Qty: 1 on 12/28/2017 by Jorge Luis Krause MD at OR [facility] Right: Groin CR BARD : DAVOL 02/25/2019 [id number] / / [id number] documented as of this encounter Advance Directives Documents on File Type Date Recorded Patient Automatic Stacker Expl anation Advance Directives and Living Will 01/02/2023 ADVANCE DIRECTIVE / LIVING WILL Power of Hand Weaver 01/02/2023 POWER OF A TTORNEY Advance Directives and Living Will 11/27/2014 ADVANCE DIRECTIVE / LIVING WILL Power of Hand Weaver 11/27/2014 POWER OF A TTORNEY Healthcare Agents on File Name Relationship Healthcare Agent [facility] p Communication Mukul Gillian Adult Child Health Care Agen t (per Health Care Power of Hand Weaver document) Care Teams Hospice Patient Care Secretary Relationship Specialty Start Date End Date Ranulfo Schumacher DO [address] [place] [address] PCP - General Internal Medicine 03/11/24 documented as of this encounter
--- OUTSIDE RECORDS SUMMARY | 2024-11-19 13:43 | External Medical Summary | Summary of Care ---
Author Name Unknown Organization [facility] Address [address] [place] [address] Phone [phone] Care Team Providers Care Gas Operations Superintendent Name Role Phone Ranulfo Schumacher DO Primary Care Provider [phone] Reason for Visit * Reason Comments Dosage Adjustment Via Phone (anticoag Cl inic) Follow Up Encounter Details Date Type Department Care Team (Late st Contact Info) Description 10/14/2024 3:00 PM EST Telemedicine Family Practice 65 [facility] [address] [place] [address] College, Pharmacist [address] [address] Medication management* Allergies Active Allergy Reactions Criticality Noted Date Comments Oxycodone 10/11/2020 caused heart to stopped--per patient documented as of this encounter (statuses as of 10/16/2024) Medications ASPIRIN EC 81 MG PO TBEC Take 1 Tablet by mouth every evening. Active MULTI VITAMIN/MINERALS PO TABS Take 1 Tablet by mouth in the morning. Active PREVIDENT 5000 BOOSTER PLUS 1.1 % DT PSTE [place] onto teeth. Special tooth paste 09/28/19 15 [...] 10:21 AM EDT 09/10/20 23 025 Active Atorvastatin Calcium 40 MG Oral Tablet (Lipitor)Indicat ions:Dyslipidemi a, goal LDL below 130 TAKE ONE TABLET BY MOUTH EVERY DAY 100 Tablet 3 07/11/2024 11:07 AM EDT 09/11/20 23 025 Active Apixaban 5 MG Oral [...] Pain, Mild. 45 Tablet 10/04/19 25 Active Additional Information Patient not taking.Reported on 10/14/2024 Diclofenac Sodium 1 % External Gel (Voltaren)Indica tions:Bilateral hand pain Apply topically to affected area 4 g in the morning AND 4 g before bedtime. Apply to bilateral hand two times a day. 350 g 3 12/27/19 22 025 Discontin ued(Medic ation List Clean Up) Ondansetron HCl 4 MG Oral Tablet Take by mouth 1 Tablet every 8 hours as needed for Nausea. 30 Tablet 05/14/20 22 025 Discontin ued(Medic ation List Clean Up) Lidocaine 4 % External Patch Place 1 Patch topically on the skin daily. 025 Discontin ued(Medic ation List Clean Up) Benzonatate 100 MG Oral CapsuleIndicatio ns:Acute bronchitis due to COVID-19 virus Take 1 Capsule by mouth 3 times a day as needed for Cough. 30 Capsule 05/31/20 24 025 Discontin ued(Medic ation List Clean Up) documented as of this encounter (statuses as of 10/16/2024) Active Problems Problem Noted Date Diagnosed Date [...] as of this encounter (statuses as of 10/16/2024) Resolved Problems Problem Noted Date Diagnosed Date [...] as of this encounter (statuses as of 10/16/2024) Immunizations Name Administration Dates Next Due COVID-19 mRNA, LNP-s, No Pre serve, 2-Dose Series (Moderna) 07/17/2021,11/28/2020,11/01/2020 COVID-19, LNP-s, No Preserve , Cheng-sucrose, Ages 12+ (Pfizer) 05/13/2022 COVID-19, MRNA-LNP, PF, 30 M CG/0.3 mL, 12 YRS AND ABOVE, IM ([facility]) 09/07/2024,07/13/2023 Covid-19, Mrna, Lnp-s, Pf, B ivalent, 30 Mcg, IM, 12 yrs and above (Pfizer) 10/14/2022 Pneumococcal Conjugate Vacc, 13 Valent (Prevnar) 10/25/2015,05/12/2015 Pneumococcal Conjugate Vacci ne, 20-valent ([id number]) 09/07/2024 Pneumococcal Conjugate Vacci ne, 7 Valent [...] as of this encounter Progress Notes * Jamia Campa, [facility] - 10/14/2024 4:02 PM EST Medication Therapy Disease Management Clinic - Medication Reconciliation Encounter Type: discussed with patient's son - Mukul Med Bottles Available for Review: no Med Rec Reason: Transition of Care Date of Admission: 10/12/24 - [facility] Date of Discharge: 10/13/24 Reason for Admission: chest pain/SOB Medication changes during admission/on discharge: Added: none Modified: none Discontinued: non Does the patient currently have all of their medications in their home? Yes [x] Preferred pharmacy reviewed/updated [x] Problem list reviewed [x] Allergies reviewed and updated if needed [x] Drug interaction check completed [x] HEDIS list addressed Immunizations indicated: Up to date Medication Organization/Adherence: Has home care nurse or caregiver: Yes - family Patient uses a pill box/blister packs? Yes, refill(s) completed by son When you are at home, how often do you miss doses of medications? Less than once a week How difficult is it for you to pay for your medications? Not difficult at all How often do you experience adverse effects from your medications? Never Labs/Vitals/Risk Scores: The ASCVD Risk score (Kirsten BALL, et al., 2019) failed to calculate for the following reasons: The 2019 ASCVD risk score is only valid for ages 40 to 79 Risk score cannot be calculated because patient has a medical history suggesting prior/existing ASCVD BP Readings from Last 3 Encounters: 09/30/24 163/84 08/30/24 118/62 05/31/24 130/70 Recent Labs Units 03/27/23 1232 HEMOGLOBIN A1C - [facility] % 5.6 Recent Labs Units 08/30/24 1449 03/18/24 1559 09/22/23 1058 ESTIMATED GLOMERULAR FILTRATION RATE - [facility] mL/min 54* 48* 54* Serum creatinine: 1.3 mg/dL (H) 08/30/24 1449 Estimated creatinine clearance: 34.6 mL/min (A) Assessment: Medication discrepancies identified: - Epic med list missing vit D on [facility] list, however not on son's list that he's giving - hasn't used benzonatate or ondansetron in a while per son - not using lidocaine patches, diclofenac, or hydrocodone lately as he got an injection and pain has been controlled - hasn't used albuterol, but is having SOB, so encouraged use. Dose/frequency of medications appropriate for current renal function? yes Other medication problems identified: none Plan: Immunizations facilitated: None Patient education provided: - discussed using albuterol inhaler PRN Referral pended for follow up management of: N/A Medication recommendations: to use albuterol I spent a total of 10-19 minutes (exact time 17 mins) on the date of service in preparation, delivery, and documentation of the care provided to Mor French excluding any time spent in the performance of separately billed services or time spent by another provider/QHP. Jamia Cramer [facility] Clinical Pharmacist - Human Resource Internship Medication Therapy Management Clinic 10/14/2024, 4:02 PM documented in this encounter Plan of Treatment Upcoming Encounters Date Type Department Care Team (Late st Contact Info) Description 10/20/2024 11:20 AM EST Office Visit Family Practice [address] [place] [address] 293 [facility], [place] [address] Ranulfo Schumacher DO 293 [facility], [place] [address] 10/26/2024 2:00 PM EST Scheduled Telephone Interventional Pain Center [facility]ia [facility] [address] [place] [phone] Allan Nurse Phone Call Interventional Pain [facility] [address] [place] [address] 11/28/2024 2:20 PM EST Office Visit Family Practice [address] [place] 293 [place] [address] Ranulfo Schumacher DO 293 [place] [address] Health Maintenance Due Date Last Done Comments Adult Wellness Visit 09/10/2024 09/10/2023, 05/31/20 21 Albumin/Creatinine Ratio 01/10/2025 024, 03/27/2023, 05/26/2022, Additional history exists CKD HGB USE SMARTSET 98827 08/30/202508/30, 08/30/2024, 03/18/2024, Additional history exists CKD PHOS USE SMARTSET 29390 08/30/2025 1211/2023, 09/22/2023, 09/12/2022, Additional history exists [...] this encounter Medical Devices Implanted Type Area Panel Monitor Device Identifier Shelf Expiration Date Model / Serial / Lot Plug Mesh Small Hernia - [id number] Implanted:Qty: 1 on 12/28/2017 by Jorge Luis Krause MD at OR [facility] Right: Ksenia CORDON BARD : DAVOL 02/25/2019 [id number] / / [id number] documented as of this encounter Visit Diagnoses [...] of pulmonary embolism Vertigo Dizziness and giddiness Medication management- Primary Encounter for long-term (current) use of other medications documented in this encounter Advance Directives Documents on File Type Date Recorded 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 Advance Directives and Living Will 01/02/2023 ADVANCE DIRECTIVE / LIVING WILL Power of Commercial Installer 01/02/2023 POWER OF A TTORNEY Advance Directives and Living Will 11/27/2014 ADVANCE DIRECTIVE / LIVING WILL Power of Commercial Installer 11/27/2014 POWER OF A TTORNEY Healthcare Agents on File Name Relationship Healthcare Agent Ginette waldrop Communication Mukul French Adult Child Health Care Agen t (per Health Care Power of Commercial Installer document) Care Teams Gas Operations Superintendent Relationship Specialty Start Date End Date Ranulfo Schumacher DO [address] [place] [address] PCP - General Internal Medicine 03/11/24 documented as of this encounter
--- OUTSIDE RECORDS SUMMARY | 2024-11-19 13:43 | External Medical Summary | Summary of Care ---
Author Name Unknown Organization [facility] Address [address] [place] [address] Phone [phone] Care Team Providers Care Cnc Maintenance Technician Name Role Phone Ranulfo Schumacher DO Primary Care Provider [phone] Reason for Visit * Reason Onset Date Comments Hospital Follow-Up 10/14/2024 Encounter Details Date Type Department Care Team (Late st Contact Info) Description 10/14/2024 2:00 PM EST Scheduled Telephone Family Practice 65 [facility] 293 [place] [address] Tamy Raya, HUONG [address] [place] [address] Allergies Active Allergy Reactions Criticality Noted Date Comments Oxycodone 10/11/2020 caused heart to stopped--per patient documented as of this encounter (statuses as of 10/14/2024) Medications ASPIRIN EC 81 MG PO TBEC Take 1 Tablet by mouth every evening. Active MULTI VITAMIN/MINERALS PO TABS Take 1 Tablet by mouth in the morning. Active PREVIDENT 5000 BOOSTER PLUS 1.1 % DT PSTE [place] onto teeth. Special tooth paste 5 Active [...] as of this encounter (statuses as of 10/14/2024) Active Problems Problem Noted Date Diagnosed Date [...] as of this encounter (statuses as of 10/14/2024) Resolved Problems Problem Noted Date Diagnosed Date [...] as of this encounter (statuses as of 10/14/2024) Immunizations Name Administration Dates Next Due COVID-19 mRNA, LNP-s, No Pre serve, 2-Dose Series (Moderna) 07/17/2021,11/28/2020,11/01/2020 COVID-19, LNP-s, No Preserve , Cheng-sucrose, Ages 12+ (byyd) 05/13/2022 COVID-19, MRNA-LNP, PF, 30 M CG/0.3 mL, 12 YRS AND ABOVE, IM ([employer]) 09/07/2024,07/13/2023 Covid-19, Mrna, Lnp-s, Pf, B ivalent, 30 Mcg, IM, 12 yrs and above (Pfizer) 10/14/2022 Pneumococcal Conjugate Vacc, 13 Valent (Prevnar) 10/25/2015,05/12/2015 Pneumococcal Conjugate Vacci ne, 20-valent ([id number]) 09/07/2024 Pneumococcal Conjugate Vacci ne, 7 Valent [...] No 08/31/2024 Does the household have a [facility] source of income? 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 no Shortness of breath? no Chest Pain? no Appetite: Denies problems Nausea/Vomiting/Diarrhea? none Dizziness/Lightheadedness? no Sleep: Denies problems Elimination: Denies problems Pain: Denies Wound: n/a Mobility: Unsteady with ambulation: Yes - no more than his usual-shuffles feet Vitals: n/a Weight: n/a D/C Instructions received and understood? Yes Medications Reviewed? No-call was transferred to pharmacist to do but unable to do med rec because son handles his medication and is not currently at home. Medications Changes during hospitalization: none R/X Obtained: N/A Post hospital appt scheduled: No -will have front desk team member call to schedule hospital f/u appt. Other Services/Equipment Coordinated: No Patient Education: Is patient care managed? yes Care Management referral placed? no CM needs: Does the patient have adequate food, water and snf? yes I reinforced how to reach [address] triage after hours, weekends and holidays by calling clinic phone # documented in this encounter Plan of Treatment Upcoming Encounters Date Type Department Care Team (Late st Contact Info) Description 10/26/2024 2:00 PM EST Scheduled Tele[facility] [address] [place] [phone] Allan Nurse Phone Call Interventional Pain [place] [address] [place] [address] 11/28/2024 2:20 PM EST Office Visit Family Practice 65 [facility] [place] [facility] [address] Ranulfo Schumacher DO 293 [facility], [place] [address] Health Maintenance Due Date Last Done Comments Adult Wellness Visit 09/10/2024 09/10/2023, 05/31/20 21 Albumin/Creatinine Ratio 01/10/2025 024, 03/27/2023, 05/26/2022, Additional history exists CKD HGB USE SMARTSET 81506 08/30/202508/30, 08/30/2024, 03/18/2024, Additional history exists CKD PHOS USE SMARTSET 40138 08/30/2025 1211/2023, 09/22/2023, 09/12/2022, Additional history exists [...] this encounter Medical Devices Implanted Type Area Pmp Project Manager Device Identifier Shelf Expiration Date Model / Serial / Lot Plug Mesh Small Hernia - [id number] Implanted:Qty: 1 on 12/28/2017 by Jorge Luis Krause MD at OR [facility] Right: Groin CR BARD : DAVOL 02/25/2019 [id number] / / [id number] documented as of this encounter Advance Directives Documents on File Type Date Recorded 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 Advance Directives and Living Will 01/02/2023 ADVANCE DIRECTIVE / LIVING WILL Power of School Counselor 01/02/2023 POWER OF A TTORNEY Advance Directives and Living Will 11/27/2014 ADVANCE DIRECTIVE / LIVING WILL Power of School Counselor 11/27/2014 POWER OF A TTORNEY Healthcare Agents on File Name Relationship Healthcare Agent Ginette waldrop Communication Mukul French Adult Child Health Care Agen t (per Health Care Power of School Counselor document) Care Teams Cnc Maintenance Technician Relationship Specialty Start Date End Date Ranulfo cShumacher DO [address] [place] [address] PCP - General Internal Medicine 03/11/24 documented as of this encounter
--- OUTSIDE RECORDS SUMMARY | 2024-11-19 13:43 | External Medical Summary | Summary of Care ---
Author Name Unknown Organization [facility] Address [address] [place] [address] Phone [phone] Care Team Providers Care Copy Center Operator Name Role Phone Winsome Ranulfo Beltran DO Primary Care Provider [phone] Encounter Details Date Type Department Care Team (Late st Contact Info) Description 10/17/2024 Population Health External Data Unspecified Department Allergies Active Allergy Reactions Criticality Noted Date Comments Oxycodone 10/11/2020 caused heart to stopped--per patient documented as of this encounter (statuses as of 10/17/2024) Medications ASPIRIN EC 81 MG PO TBEC Take 1 Tablet by mouth every evening. Active MULTI VITAMIN/MINERALS PO TABS Take 1 Tablet by mouth in the morning. Active PREVIDENT 5000 BOOSTER PLUS 1.1 % DT PSTE [place] onto teeth. Special tooth paste 5 Active [...] as needed for Pain, Mild. 45 Tablet Active Additional Information Patient not taking.Reported on 10/14/2024 documented as of this encounter (statuses as of 10/17/2024) Active Problems Problem Noted Date Diagnosed Date [...] AM EDT): Regular today. Rate controlled. -continue Mare, Eliquis Assessment & Plan (01/27/2023 10:32 AM [...] as of this encounter (statuses as of 10/17/2024) Resolved Problems Problem Noted Date Diagnosed Date [...] as of this encounter (statuses as of 10/17/2024) Immunizations Name Administration Dates Next Due COVID-19 mRNA, LNP-s, No Pre serve, 2-Dose Series (Moderna) 07/17/2021,11/28/2020,11/01/2020 COVID-19, LNP-s, No Preserve , Cheng-sucrose, Ages 12+ (Pfizer) 05/13/2022 COVID-19, MRNA-LNP, PF, 30 M CG/0.3 mL, 12 YRS AND ABOVE, IM ([facility] 09/07/2024,07/13/2023 Covid-19, Mrna, Lnp-s, Pf, B ivalent, 30 Mcg, IM, 12 yrs and above (Pfizer) 10/14/2022 Pneumococcal Conjugate Vacc, 13 Valent (Prevnar) 10/25/2015,05/12/2015 Pneumococcal Conjugate Vacci ne, 20-valent ([id number]) 09/07/2024 Pneumococcal Conjugate Vacci ne, 7 Valent [...] 10/20/2024 11:20 AM EST Office Visit Family [address] 293 [facility] [place] [address] Ranulfo Schumacher, 293 [facility] [place] [address] 10/26/2024 2:00 PM EST Scheduled Telephone Interventional Pain Center [facility] [address] [place] [phone] Nurse Allan Phone Call Interventional Pain [place] [address] [place] [address] 11/28/2024 2:20 PM EST Office Visit Family Practice [address] [place] [address] 293 [facility] [place] [address] Ranulfo Schumacher, 293 [place] [address] Health Maintenance Due Date Last Done Comments Adult Wellness Visit 09/10/2024 09/10/2023, 05/31/20 21 Albumin/Creatinine Ratio 01/10/2025 024, 03/27/2023, 05/26/2022, Additional history exists CKD HGB USE SMARTSET 95999 08/30/202508/30, 08/30/2024, 03/18/2024, Additional history exists CKD PHOS USE SMARTSET 90568 08/30/202511/2023, 09/22/2023, 09/12/2022, Additional history exists Depression [...] this encounter Medical Devices Implanted Type Area Facility Engineer Device Identifier Shelf Expiration Date Model / Serial / Lot Plug Mesh Small Hernia - [id number] Implanted:Qty: 1 on 12/28/2017 by Jorge Luis Krause MD at OR [facility] Right: Groin CR BARD : LIN 02/25/2019 [id number] / / [id number] documented as of this encounter Advance Directives Documents on File Type Date Recorded Patient Oncology Social Work Expl anation Advance Directives and Living Will 01/02/2023 ADVANCE DIRECTIVE / LIVING WILL Power of Manager User Interface 01/02/2023 POWER OF A TTORNEY Advance Directives and Living Will 11/27/2014 ADVANCE DIRECTIVE / LIVING WILL Power of Manager User Interface 11/27/2014 POWER OF A TTORNEY Healthcare Agents on File Name Relationship Healthcare Agent [facility] p Communication Mukul Gillian Adult Child Health Care Agen t (per Health Care Power of Manager User Interface document) Care Teams Copy Center Operator Relationship Specialty Start Date End Date Ranulfo Schumacher DO 293 [place] [address] PCP - General Internal Medicine 03/11/24 documented as of this encounter
--- OUTSIDE RECORDS SUMMARY | 2024-11-19 13:43 | External Medical Summary | Summary of Care ---
Author Name Unknown Organization [facility] Address [address] [place] [address] Phone [phone] Care Team Providers Care Rehabilitation Attendant Name Role Phone Ranulfo Schumacher Primary Care Provider [phone] Reason for Visit * Reason Onset Date Comments Public Policy Professor Documentation 10/17/2024 My [facility]Choices/Advance Care Planning Encounter Details Date Type Department Care Team (Late st Contact Info) Description 10/17/2024 Telephone Care Coordination [address] [place] [address] Sandrine Theodore, PLASTIC MIXER Public Policy Professor Documentation ([employer]CareCho[employer]... Allergies Active Allergy Reactions Criticality Noted Date Comments Oxycodone 10/11/2020 caused heart to stopped--per patient documented as of this encounter (statuses as of 10/17/2024) Medications ASPIRIN EC 81 MG PO TBEC Take 1 Tablet by mouth every evening. Active MULTI VITAMIN/MINERALS PO TABS Take 1 Tablet by mouth in the morning. Active PREVIDENT 5000 BOOSTER PLUS 1.1 % DT PSTE [place] onto teeth. Special tooth paste 5 Active [...] (Prevnar) 10/25/2015,05/12/2015 Pneumococcal Conjugate Vacci ne, 20-valent ([id number]) 09/07/2024 Pneumococcal Conjugate Vacci ne, 7 Valent [...] No 08/31/2024 Does the household have a [facility] source of income? (Household - for ages [...] encounter Miscellaneous Notes * Telephone Encounter - Sandrine Theodore LCSW - 10/17/2024 7:25 AM EST Reminder: A serious illness conversation alert will fire at the upcoming provider scheduled visit on , 10/20/24. Thank you, [facility] [phone] documented in this encounter Plan of Treatment Upcoming Encounters Date Type Department Care Team (Late st Contact Info) Description 10/20/2024 11:20 AM EST Office Visit Family Practice [address], [place] [address] [place] [address] Ranulfo Schumacher, DO 293 [place] [address] 10/26/2024 2:00 PM EST Scheduled Telephone Interventional Pain Center [facility] [address] [place] [address] Lemus, Nurse Phone Call Interventional Pain [facility] [address] [place] [address] 11/28/2024 2:20 PM EST Office Visit Family Practice 65 [facility] [address] [place] [address] Ranulfo Schumacher, 293 [place] [address] Health Maintenance Due Date Last Done Comments Adult Wellness Visit 09/10/2024 09/10/2023, 05/31/20 21 Albumin/Creatinine Ratio 01/10/2025 024, 03/27/2023, 05/26/2022, Additional history exists CKD HGB USE SMARTSET 64021 08/30/202508/30, 08/30/2024, 03/18/2024, Additional history exists CKD PHOS USE SMARTSET 52802 08/30/202511/2023, 09/22/2023, 09/12/2022, Additional history exists Depression [...] this encounter Medical Devices Implanted Type Area Audit Tech Device Identifier Shelf Expiration Date Model / Serial / Lot Plug Mesh Small Hernia - [id number] Implanted:Qty: 1 on 12/28/2017 by Jorge Luis Krause MD at OR [facility] Right: Groin CR BARD : DAVOL 02/25/2019 [id number] / / [id number] documented as of this encounter Advance Directives Documents on File Type Date Recorded 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 Advance Directives and Living Will 01/02/2023 ADVANCE DIRECTIVE / LIVING WILL Power of Plant Engineer 01/02/2023 POWER OF A TTORNEY Advance Directives and Living Will 11/27/2014 ADVANCE DIRECTIVE / LIVING WILL Power of Plant Engineer 11/27/2014 POWER OF A TTORNEY Healthcare Agents on File Name Relationship Healthcare Agent [facility] Mukul French Adult Child Health Care Agen t (per Health Care Power of Plant Engineer document) Care Teams Rehabilitation Attendant Relationship Specialty Start Date End Date Ranulfo Schumacher DO [address] [place] [address] PCP - General Internal Medicine 03/11/24 documented as of this encounter
--- OUTSIDE RECORDS SUMMARY | 2024-11-19 13:43 | External Medical Summary | Summary of Care ---
Author Name Unknown Organization [facility] Address [address] [place] [address] Phone [phone] Care Team Providers Care Mechanical Tech Name Role Phone Ranulfo Schumacher DO Primary Care Provider [phone] Reason for Visit * Reason Onset Date Comments Information 10/18/2024 Advice 10/18/202410/18 Encounter Details Date Type Department Care Team (Late st Contact Info) Description 10/18/2024 Telephone Family Practice [address], [place] [address] [place] [address] Ranulfo Schumacher DO [address] [place] [address] Information; Advice (10/18) Allergies Active [...] 5000 BOOSTER PLUS 1.1 % DT PSTE [place] onto teeth. Special tooth paste 5 Active [...] (Prevnar) 10/25/2015,05/12/2015 Pneumococcal Conjugate Vacci ne, 20-valent ([id number]) 09/07/2024 Pneumococcal Conjugate Vacci ne, 7 Valent [...] if needed. * Telephone Encounter - Abi Crowley RT (R) - 10/18/2024 4:06 PM EST [...] 3:22 PM EST NM stress done at [facility] this week was OK No hypoxia while hospitalized. Start Buspar 5 mg two times a day for anxiety / insomnia Schedule tomorrow Hospital follow up * Telephone Encounter - Tamy Harper LPN - 10/18/2024 3:12 PM EST Radhika calling states Mor is short of breath. Patient is currently at group home visiting , States he does get some tightness at times. No uri symptoms at all. Not able to sleep, struggling, up at night. documented in this encounter Plan of Treatment Upcoming Encounters Date Type Department Care Team (Late st Contact Info) Description 10/20/2024 11:20 AM EST Office Visit Family Practice [address] [place] [address] [address] [facility] [place] [id number] Ranulfo Schumacher DO 293 [facility], [place] [address] 10/26/2024 2:00 PM EST Scheduled Telephone Interventional Pain Center [facility] [address] [place] [phone] Nurse Allan Phone Call Interventional Pain [facility] [address] [place] [address] 11/28/2024 2:20 PM EST Office Visit Family [address] [facility], [place] [address] Ranulfo Schumacher, [address] [facility], [place] [address] Health Maintenance Due Date Last Done Comments Adult Wellness Visit 09/10/2024 09/10/2023, 05/31/20 21 Albumin/Creatinine Ratio 01/10/2025 024, 03/27/2023, 05/26/2022, Additional history exists CKD HGB USE SMARTSET 75112 08/30/202508/30, 08/30/2024, 03/18/2024, Additional history exists CKD PHOS USE SMARTSET 31872 08/30/2025 12/0 11/2023, 09/22/2023, 09/12/2022, Additional history [...] this encounter Medical Devices Implanted Type Area Production Miner Device Identifier Shelf Expiration Date Model / Serial / Lot Plug Mesh Small Hernia - [id number] Implanted:Qty: 1 on 12/28/2017 by Jorge Luis Krause MD at [facility] Right: Groin CR BARD : DAVOL 02/25/2019 [id number] / / [id number] documented as of this encounter Visit Diagnoses [...] Documents on File Type Date Recorded Patient Supply Requirements Officer Expl anation Advance Directives and Living Will 01/02/2023 ADVANCE DIRECTIVE / LIVING WILL Power of Intake Clinician 01/02/2023 POWER OF A TTORNEY Advance Directives and Living Will 11/27/2014 ADVANCE DIRECTIVE / LIVING WILL Power of Intake Clinician 11/27/2014 POWER OF A TTORNEY Healthcare Agents on File Name Relationship Healthcare Agent Relationshi p Communication Mukul French Adult Child Health Care Agen t (per Health Care Power of Intake Clinician document) Care Teams Mechanical Tech Relationship Specialty Start Date End Date Ranulfo Schumacher DO [address] [place] [address] PCP - General Internal Medicine 03/11/24 documented as of this encounter
--- OUTSIDE RECORDS SUMMARY | 2024-11-19 13:43 | External Medical Summary | Summary of Care ---
Author Name Unknown Organization [facility] Address [address] [place] [address] Phone [phone] Care Team Providers Care High School Assistant Principal Name Role Phone Ranulfo Schumacher DO Primary Care Provider [phone] Reason for Visit * Reason Onset Date Comments Appointment 10/14/2024 Encounter Details Date Type Department Care Team (Late st Contact Info) Description 10/14/2024 Telephone [address] [facility] [address] [place] [address] Ranulfo Schumacher DO [address] [place] [address] Appointment Allergies Active Allergy Reactions Criticality Noted Date Comments Oxycodone 10/11/2020 caused heart to stopped--per patient documented as of this encounter (statuses as of 10/17/2024) Medications ASPIRIN EC 81 MG PO TBEC Take 1 Tablet by mouth every evening. Active MULTI VITAMIN/MINERALS PO TABS Take 1 Tablet by mouth in the morning. Active PREVIDENT 5000 BOOSTER PLUS 1.1 % DT PSTE [place] onto teeth. Special tooth paste 5 Active [...] (Prevnar) 10/25/2015,05/12/2015 Pneumococcal Conjugate Vacci ne, 20-valent ([id number]) 09/07/2024 Pneumococcal Conjugate Vacci ne, 7 Valent [...] encounter Miscellaneous Notes * Telephone Encounter - Peg Quiñonez OSA - 10/17/2024 9:08 AM EST Scheduled * Telephone Encounter - Tamy Raya RN - 10/14/2024 2:57 PM EST Please schedule a hospital follow up appt with Dr Schumacher. Thank you documented in this encounter Plan of Treatment Upcoming Encounters Date Type Department Care Team (Late st Contact Info) Description 10/20/2024 11:20 AM EST Office Visit Family Practice [address] [facility] 293 [place] [address] Ranulfo Schumacher, DO 293 [place] [address] 10/26/2024 2:00 PM EST Scheduled Telephone Interventional [facility] Center [place] [facility] [address] [place] [phone] Allan Nurse Phone Call Interventional Pain [facility] [address] [place] [address] 11/28/2024 2:20 PM EST Office Visit Family Practice [address] [facility] 293 [facility], [place] [address] Ranulfo Schumacher, DO [address] [place] [address] Health Maintenance Due Date Last Done Comments Adult Wellness Visit 09/10/2024 09/10/2023, 05/31/20 21 Albumin/Creatinine Ratio 01/10/2025 024, 03/27/2023, 05/26/2022, Additional history exists CKD HGB USE SMARTSET 92461 08/30/202508/30, 08/30/2024, 03/18/2024, Additional history exists CKD PHOS USE SMARTSET 05858 08/30/2025 12/11/2023, 09/22/2023, 09/12/2022, Additional history exists [...] this encounter Medical Devices Implanted Type Area Straw Hat Presser Device Identifier Shelf Expiration Date Model / Serial / Lot Plug Mesh Small Hernia - [id number] Implanted:Qty: 1 on 12/28/2017 by Jorge Luis Krause MD at [facility] Right: Groin CR BARD : DAVOL 02/25/2019 [id number] / / [id number] documented as of this encounter Advance Directives Documents on File Type Date Recorded 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 Concrete Worker Expl anation Advance Directives and Living Will 01/02/2023 ADVANCE DIRECTIVE / LIVING WILL Power of Insurance Plan Specialist 01/02/2023 POWER OF A TTORNEY Advance Directives and Living Will 11/27/2014 ADVANCE DIRECTIVE / LIVING WILL Power of Insurance Plan Specialist 11/27/2014 POWER OF A TTORNEY Healthcare Agents on File Name Relationship Healthcare Agent Relationshi p Communication Mukul French Adult Child Health Care Agen t (per Health Care Power of Insurance Plan Specialist document) Care Teams High School Assistant Principal Relationship Specialty Start Date End Date Ranulfo Schumacher DO [address] [place] [address] PCP - General Internal Medicine 03/11/24 documented as of this encounter
--- NOTE | 2024-11-19 13:52 | Emergency Department Note ---
Impression & Plan Gastroenteritis, Fall, Nausea vomiting and diarrhea, Acute dehydration, Dementia ED Provider Note NAME: BUCK BATISTA : 1940 ARRIVES VIA: Ambulance INFORMANT: Patient, Son ED PROVIDER(S): Maurisio Win MD CHIEF COMPLAINT: Fall, nausea vomiting diarrhea MEDICAL DECISION MAKING: Patient presents due to concern for vomiting diarrhea and possible fall. IV was established and blood work was obtained along with a [id number] BMP. CT abdomen pelvis ordered along with CT head. Patient currently denies any abdominal pain but may have associated guarding. History of dementia and history may be unreliable. Patient's son does provide the majority of the history in addition to nursing/EMS report. Patient did receive IV fluids and IV Zofran. Patient's blood work shows a white count of 9 with a hemoglobin of 12.9. Platelet count is unremarkable. Kidney function with a creatinine of 1.35 [id number] was 1.5. Lipase elevated at 116. BioFire is negative. Stool start studies ordered. CT abdomen/pelvis shows hiatal hernia and likely enteritis. CT head negative. Do not believe the patient would be suitable for outpatient follow-up and treatment at this time given his dementia difficulty for care at home with only the son. I did speak the on-call hospital service Dr. Galdamez and the patient was admitted to medicine service. Discussion w/ other healthcare providers: Dr. Butterfield inpatient medicine service Prior /Outside records reviewed: I reviewed part of a discharge summary from Dr. Valles from October 13. Known history of left bundle branch block dyspnea angina CKD PE CVA cancer Alzheimer's dementia A-fib. Patient did have a Lexiscan completed which was within normal limits. Patient reportedly had worsening dyspnea and chest tightness over the last 4 to 6 weeks prior to his admission. Differential diagnosis: Gastroenteritis, food borne illness, infection, appendicitis, diverticulitis, inflammatory bowel disease, obstruction among others were considered. Diagnostics, as interpreted by me: ECG: Normal sinus rhythm, rate of 90, borderline QRS with left bundle branch block pattern no obvious STEMI Q waves noted inferiorly as well as anteriorly. Patient's morphology looks grossly unchanged from comparison October 12, 2024 Cardiac monitoring: An order was placed for continuous cardiac monitoring. The monitor shows a rate of 88 with sinus rhythm. Patient was placed on pulse oximetry Medical decision rules: None Imaging studies: I informally interpreted the patient's CT head does not show obvious ICH with formal report to follow. HPI: Patient presents due to concern for weakness nausea vomiting diarrhea. Son provides majority of the history and states that he then found him on the ground of the bathroom with vomiting and diarrhea. He was able to pick him up and placed him on the toilet. He states that he has been more conversational but seem very weak and fatigued at the initial time of the symptoms. Patient denies any chest pain shortness of breath and does not feel nauseated currently. The patient did not receive any medications or fluids and route. Unclear as to whether not the patient fell and hit his head or if he slumped to the ground. Patient does take Eliquis for prior history of A-fib. Patient's recently was admitted for E. coli and norovirus. PAST MEDICAL HISTORY: See Below PAST SURGICAL HISTORY: See Below SOCIAL HISTORY: See Below HOME MEDICATIONS: See Below ALLERGIES: See Below VITALS: See Below PHYSICAL EXAMINATION: GENERAL: NAD, non-toxic. EYE EXAM: Normal conjunctiva. PERRL, no anisocoria and EOM's grossly intact w/o pain. OROPHARYNX: Moist mucus membranes, grossly normal dentition. NECK: Trachea midline, no stridor. Supple, no nuchal rigidity, no adenopathy, non-tender. No signs of meningismus. FROM of the neck with good chin to chest and neck extension. LUNGS: Clear to auscultation. Normal chest wall mechanics. HEART: NSR, no MRG. ABDOMEN: Abdomen soft, abdominal distention with mild discomfort questionable guarding no obvious rebound, no masses. BACK: No CVA TTP. SKIN: No rashes and no bruising. UPPER EXTREMITIES: Upper extremities are grossly normal. LOWER EXTREMITIES: Grossly normal, no edema. NEURO EXAM: A&O x3, cranial nerves II-XII grossly intact, normal speech, moves all 4 extremities. 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 Dyspnea on minimal exertion Complete left bundle branch block (Acute) Chest pain (Acute) COVID-19 (Acute) Pneumonia involving right lung (Acute) Pneumonia involving right lung Vomiting (Acute) Headache (Acute) Chest pain (Acute) Acute ischemic stroke Acute confusion (Acute) History of CVA (cerebrovascular accident) (Acute) Middle cerebral artery stenosis (Acute) Pre-diabetes Aneurysmal dilatation Weakness (Acute) History of pulmonary embolism Supratherapeutic INR (Acute) Acute cerebrovascular accident (Acute) CKD (chronic kidney disease) stage 3, GFR 30-59 ml/min (Acute) Status post reverse arthroplasty of left shoulder (Acute ~05/2020) HTN (hypertension) Migraine (Chronic) HX OF DVT prophylaxis Medical History On anticoagulant therapy Pulmonary embolism hospitalized 03/12/2020-03/15/2020 [facility] w/ BL PE; unk etiology; on coumadin Degenerative disc disease Osteoarthritis GERD (gastroesophageal reflux disease) Cancer LUNG AND PROSTATE CANCER, both treated surgically Asthma Using albuterol inhaler TID now since PEs. Previously wasn't using inhaler at all. Surgical History History of cataract surgery LEFT/RIGHT History of carpal tunnel release RT X 2 LEFT X 3 History of laminectomy LUMBAR History of prostatectomy History of esophagogastroduodenoscopy (EGD) History of colonoscopy History of herniorrhaphy RT INGUINAL History of lobectomy of lung RT MIDDLE LOBE History of tooth extraction History of tonsillectomy History of adenoidectomy Family History Father FHx: prostate cancer Grandfather (Paternal) FHx: prostate cancer Social History Smoking Status: Former smoker Tobacco Type: Cigars Second Hand Exposure: No; Do You Dip or Chew Tobacco: No; Hx Alcohol Use: No Hx Substance Use: No Preferred Language: Occitan Communication Ability: Effective Ultrasound Technologist Sonographer Required: No Beliefs That Will Affect Care: None marital status: Current Living Situation: Spouse Current Living Situation Comment: daughter is living with him currently Feels Safe at Home: Yes Safety Concerns: Feels Safe At This Time Assistive Devices: Cane and Walker Allergies Allergies Allergy/AdvReac Type Severity Reaction Status Date / Time oxycodone AdvReac Severe became Verified 10/12/24 20:52 apneic and bradycardic Home Meds Home Medications Medication Instructions Recorded Confirmed citalopram 20 mg tablet 20 mg PO QAM 08/31/18 11/19/24 pantoprazole 40 mg tablet,delayed 40 mg PO QAM 08/31/18 11/19/24 release carvedilol 6.25 mg tablet 6.25 mg PO QPM 03/09/20 11/19/24 gabapentin 100 mg capsule 100 mg PO AMPM 03/09/20 11/19/24 aspirin 81 mg tablet,delayed 81 mg PO QPM 07/04/20 11/19/24 release albuterol sulfate 90 mcg/actuation 2 puff inhalation Q6 PRN Shortness 07/07/20 11/19/24 aerosol inhaler Of Breath Or Wheezing atorvastatin 40 mg tablet 40 mg PO QPM 10/04/20 11/19/24 apixaban 5 mg tablet (Eliquis) 5 mg PO AMHS 10/12/24 11/19/24 magnesium oxide 400 mg PO QPM 10/12/24 11/19/24 meclizine 12.5 mg tablet 12.5 mg PO AMPM 10/12/24 11/19/24 multivitamin with minerals 1 cap PO QAM 10/12/24 11/19/24 buspirone 5 mg tablet 5 mg PO AMPM 11/19/24 11/19/24 meclizine 12.5 mg tablet 12.5 mg PO .IN AFTERNOON PRN 11/19/24 11/19/24 Dizziness Results & Data (ED) Vital Signs Vital Signs - 24 hr 11/19/24 13:42 11/19/24 14:20 11/19/24 14:26 Temperature 37.2 C Temperature Source Oral Pulse Rate 96 H 94 H 86 Pulse Rate [Apical] Pulse Rhythm [Apical] Pulse Strength [Apical] Respiratory Rate 18 22 Respiratory Effort / Characteristics Non-Labored Spontaneous Respiratory Depth Normal Respiratory Pattern Regular Blood Pressure 138/91 Blood Pressure [Right Arm] Blood Pressure Mean 106 Blood Pressure Mean [Right Arm] Blood Pressure Position [Right Arm] Pulse Oximetry 98 95 Oxygen Delivery Method Room Air Room Air Sepsis Recent Fever Within 48 Hours No Sepsis New/Unexplained Change in Mental Status No Sepsis Action Taken by Nursing No Action Required 11/19/24 15:30 Temperature Temperature Source Pulse Rate Pulse Rate [Apical] 88 Pulse Rhythm [Apical] Regular Pulse Strength [Apical] Normal Respiratory Rate 16 Respiratory Effort / Characteristics Non-Labored Spontaneous Respiratory Depth Normal Respiratory Pattern Regular Blood Pressure Blood Pressure [Right Arm] 139/75 Blood Pressure Mean Blood Pressure Mean [Right Arm] 96 Blood Pressure Position [Right Arm] Lying Pulse Oximetry 93 Oxygen Delivery Method Room Air Sepsis Recent Fever Within 48 Hours Sepsis New/Unexplained Change in Mental Status Sepsis Action Taken by [facility] Medications Current Medication List: was personally reviewed by me Laboratory Data Attestation: I reviewed the patient's lab results. 11/20/24 04:10 11/20/24 04:10 Lab Results 11/19/24 11/19/24 11/19/24 Range/Units 14:21 14:26 14:30 WBC 9.98 (4.8-10.8) K/ul RBC 4.94 (4.70-6.10) M/uL Hgb 12.9 L (14.0-18.0) g/dl POC Hgb 13.6 L (14.0-18.0) g/dl Hct 40.1 L (42.0-52.0) % POC Hct 40 L (42-52) % MCV 81.2 (80.0-100.0) fL MCH 26.1 (25.0-34.0) pg MCHC 32.2 (32.0-36.0) g/dL RDW Std Deviation 45.2 (36.4-46.3) fL RDW Coeff of Marely 15.6 H (11.5-14.5) % Plt Count 268 (130-400) K/uL MPV 9.4 (9.4-12.4) fL Immature Gran % (Auto) 0.4 % Neut % (Auto) 87.5 % Lymph % (Auto) 5.3 % Real % (Auto) 6.1 % Eos % (Auto) 0.6 % Baso % (Auto) 0.1 % Neut # (Auto) 8.73 H (1.40-6.50) K/uL Lymph # (Auto) 0.53 L (1.20-3.40) K/uL Real # (Auto) 0.61 H (0.11-0.59) K/uL Eos # (Auto) 0.06 (0.00-0.50) K/uL Baso # (Auto) 0.01 (0.00-0.20) K/uL Immature Gran # (Auto) 0.04 (0.01-0.20) K/uL POC Sodium 135 (135-144) mmol/L Sodium 135 L (136-145) mmol/L POC Potassium 5.5 H (3.3-5.0) mmol/L Potassium 4.5 (3.5-5.1) mmol/L POC Chloride 101 (101-112) mmol/L Chloride 101 (98-107) mmol/L Carbon Dioxide 26 (21-32) mmol/L POC Total CO2 25 (24-31) mmol/L Anion Gap 8 (3-11) POC Anion Gap 16.0 (16-25) mmol/L POC BUN 22 H (7-18) mg/dl BUN 18 (6-23) mg/dl Creatinine 1.35 (0.6-1.4) mg/dl POC Creatinine 1.5 H (0.6-1.3) mg/dl Est Cr Clr Drug Dosing 35.4 ml/min eGFR 51.13 BUN/Creatinine Ratio 13.3 (10-20) Glucose 98 (70-99(Fasting)) mg/dl POC Glucose (other) 100 H (70-99) mg/dl Calcium 9.6 (8.6-10.3) mg/dl POC Ioniz Calcium Eliza 1.14 (1.12-1.32) mmol/l Total Bilirubin 1.0 (0.2-1.0) mg/dl AST 22 (13-39) U/L ALT 17 (7-52) U/L Alkaline Phosphatase 86 (34-104) U/L Total Protein 7.2 (6.0-8.3) gm/dl Albumin 4.3 (3.4-5.0) gm/dl Globulin 2.9 (2.5-4.0) gm/dl Albumin/Globulin Ratio 1.5 (0.9-2) Lipase 116 H (11-82) U/L Adenovirus (PCR) Not Detected (NotDetected) B. pertussis DNA (PCR) Not Detected (NotDetected) B.parapertussis DNA PCR Not Detected (NotDetected) C. pneumoniae DNA (PCR) Not Detected (NotDetected) Coronavirus OC43 (PCR) Not Detected (NotDetected) Coronavirus HKU1 (PCR) Not Detected (NotDetected) Coronavirus 229E (PCR) Not Detected (NotDetected) SARS-CoV-2 (PCR) Not Detected (NotDetected) Coronavirus NL63 (PCR) Not Detected (NotDetected) Human Metapneumovir PCR Not Detected (NotDetected) Influenza Type A (PCR) Not Detected (NotDetected) Influenza Type B (PCR) Not Detected (NotDetected) M. pneumoniae (PCR) Not Detected (NotDetected) Parainfluenza 1 (PCR) Not Detected (NotDetected) Parainfluenza 2 (PCR) Not Detected (NotDetected) Parainfluenza 3 (PCR) Not Detected (NotDetected) Parainfluenza 4 (PCR) Not Detected (NotDetected) RSV (PCR) Not Detected (NotDetected) Entero/Rhino (PCR) Not Detected (NotDetected) Administered Medications Acetaminophen (Acetaminophen 325 Mg Tab) 650 mg PO Q4H PRN PRN Reason: Pain or Fever Stop: 12/19/24 16:39 Last Admin: 11/20/24 05:16 Dose: 650 mg Documented By: BRIANA Co-signed By: ABDIEL Buspirone HCl (Buspirone 5 Mg Tab) 5 mg PO BID [facility] Stop: 12/19/24 20:59 Last Admin: 11/19/24 21:12 Dose: 5 mg Documented By: SHAVONNE Carvedilol (Carvedilol 6.25 Mg Tab) 6.25 mg PO QPM ROSA M Stop: 12/19/24 20:59 Last Admin: 11/19/24 21:13 Dose: 6.25 mg Documented By: SHAVONNE Gabapentin (Gabapentin 100 Mg Cap) 100 mg PO BID ROSA M Stop: 12/19/24 20:59 Last Admin: 11/19/24 21:13 Dose: 100 mg Documented By: SHAVONNE Sodium Chloride (Nss) 1,000 mls @ 75 mls/hr IV .[id number] ROSA M Stop: 11/21/24 08:29 Last Admin: 11/20/24 09:15 Dose: 75 mls/hr Documented By: [facility] Magnesium Oxide (Magnesium Oxide 400 Mg Tab) 400 mg PO QPM ROSA M Stop: 12/19/24 20:59 Last Admin: 11/19/24 21:13 Dose: 400 mg Documented By: SHAVONNE Meclizine HCl (Meclizine 12.5 Mg Tab) 12.5 mg PO BID ROSA M Stop: 12/19/24 20:59 Last Admin: 11/19/24 21:12 Dose: 12.5 mg Documented By: SHAVONNE Discontinued Medications Sodium Chloride (Nss) 1,000 mls @ 999 mls/hr IV .[id number] ONE Stop: 11/19/24 15:06 Last Infusion: 11/19/24 15:43 Dose: Infused Documented By: Admin: 11/19/24 14:32 Dose: 999 mls/hr Documented By: KISHAN Acetaminophen (Ofirmev) 1,000 mg in 100 mls @ 400 mls/hr IV NOW STA Stop: 11/19/24 14:20 Last Infusion: 11/19/24 15:42 Dose: Infused Documented By: Admin: 11/19/24 14:32 Dose: 400 mls/hr Documented By: KISHAN Sodium Chloride (Nss) 1,000 mls @ 80 mls/hr IV .[id number] ONE Stop: 11/20/24 06:00 Last Infusion: 11/20/24 07:06 Dose: Infused Documented By: [facility] Admin: 11/19/24 18:23 Dose: 80 mls/hr Documented By: KISHAN Ioversol (Optiray 320 100ml) 93 ml IV ONCE ONE Stop: 11/19/24 14:54 Last Admin: 11/19/24 14:53 Dose: 93 ml Documented By: PEBBLES Ondansetron HCl (Ondansetron Inj 2 Mg/Ml 2 Ml Vial) 4 mg IV NOW STA Stop: 11/19/24 14:07 Last Admin: 11/19/24 14:31 Dose: 4 mg Documented By: KISHAN Imaging Data Radiologist's Impression: Abdomen/Pelvis CT 11/19/24 14:07 INDICATION: Abdominal pain. COMPARISON: No relevant priors available. TECHNIQUE: Axial CT images of the abdomen and pelvis were obtained following IV contrast administration. Coronal and sagittal reformations were reviewed. FINDINGS: Subsegmental atelectasis in the lung bases. 1 cm right hepatic lobe cyst. The gallbladder, spleen, pancreas and adrenal glands appear unremarkable. No hydronephrosis. A few bilateral renal cysts measuring up to 4 cm on the left. Large hiatal hernia. No evidence of bowel obstruction/colitis/appendicitis. Colonic diverticula noted. Fluid seen in the small bowel and colon No free air. No drainable fluid collection. Negative for abdominal aortic aneurysm or dissection. The urinary bladder appears unremarkable. The prostate gland appears surgically absent. Small fat-containing left inguinal hernia. Degenerative changes in the spine. No acute osseous abnormality evident. IMPRESSION: 1. Findings likely related to enteritis/diarrhea. 2. Large hiatal hernia. 3. Small hepatic cyst. Electronically signed by Carlos Manuel Monzon 11-19-2024 3:[address] 11/19/24 14:08 INDICATION: Pain and injury. COMPARISON: CT brain from 10/12/2020 TECHNIQUE: Axial CT images of the head were obtained without IV contrast. Coronal and sagittal reformations were reviewed. FINDINGS: Brar-white differentiation is relatively preserved. No mass, mass effect or midline shift. Chronic ischemic white matter changes. Cortical atrophy. Basal ganglia calcifications. No evidence of acute large territorial infarction or acute intracranial hemorrhage. Ventricles appear normal in size. Basal cisterns are patent. No depressed calvarial fracture. IMPRESSION: No acute intracranial process. Electronically signed by Carlos Manuel Monzon 11-19-2024 3:15 PM Discharge Plan Visit Data Chief Complaint: Illness ED Provider: Maurisio Win Discharge Problem: Gastroenteritis, Fall, Nausea vomiting and diarrhea, Acute dehydration, Dementia Discharge Instructions Interventions: ED Discharge Assessment Last Done: 11/19/24 18:22 Discharge Problem: Fall Qualifiers: Encounter type: initial encounter Qualified Code(s): W19.XXXA - Unspecified fall, initial encounter Dementia Qualifiers: Dementia type: unspecified type Dementia severity: unspecified severity D ementia behavioral or psychological symptom: without behavioral, psychotic, or mood disturbance or anxiety Qualified Code(s): F03.90 - Unspecified dementia, unspecified severity, without behavioral disturbance, psychotic disturbance, mood disturbance, and anxiety
[2024-11-19] MEDS: ONDANSETRON INJ 2 MG/ML 2 ML VIAL IV STA (14:31)
[2024-11-19] MEDS: SODIUM CHLORIDE 0.9% 1,000 ML IV ONE ×2 (14:32→18:23)
[2024-11-19] MEDS: ACETAMINOPHEN 1,000 MG/100 ML VIAL IV STA (14:32)
[2024-11-19 14:38] LABS: iSTAT Creatinine 1.5 mg/dl (0.6-1.3); iSTAT Hemoglobin 13.6 g/dl (14.0-18.0); iSTAT Ionized Calcium 1.14 mmol/l (1.12-1.32); iSTAT Potassium 5.5 mmol/L (3.3-5.0)
[2024-11-19 14:48] LABS: Basophils # (auto) 0.01 K/uL (0.00-0.20); Basophils % (auto) 0.1 %; Eosinophils # (auto) 0.06 K/uL (0.00-0.50); Eosinophils % (auto) 0.6 %; Hematocrit (blood only) 40.1 % (42.0-52.0); Hemoglobin 12.9 g/dl (14.0-18.0); Immature Granulocytes # (auto) 0.04 K/uL (0.01-0.20); Immature Granulocytes % (auto) 0.4 %; Lymphocytes # (auto) 0.53 K/uL (1.20-3.40); Lymphocytes % (auto) 5.3 %; Mean Corpuscular Hemoglobin 26.1 pg (25.0-34.0); Mean Corpuscular Hgb Conc 32.2 g/dL (32.0-36.0); Mean Corpuscular Volume 81.2 fL (80.0-100.0); Mean Platelet Volume 9.4 fL (9.4-12.4); Monocytes # (auto) 0.61 K/uL (0.11-0.59); Monocytes % (auto) 6.1 %; Neutrophils # (auto) 8.73 K/uL (1.40-6.50); Neutrophils % (auto) 87.5 %; Platelet Count 268 K/uL (130-400); RDW Coefficient of Variation 15.6 % (11.5-14.5); RDW Standard Deviation 45.2 fL (36.4-46.3); Red Blood Count 4.94 M/uL (4.70-6.10); White Blood Count 9.98 K/ul (4.8-10.8)
[2024-11-19] MEDS: OPTIRAY 320 100ml IV ONE (14:53)
[2024-11-19 15:12] LABS: Albumin Globulin Ratio 1.5 (0.9-2); Albumin Level 4.3 gm/dl (3.4-5.0); BUN Creatinine Ratio 13.3 (10-20); Calcium 9.6 mg/dl (8.6-10.3); Creatinine Clr Calc Pharmacy 35.4 ml/min; Globulin 2.9 gm/dl (2.5-4.0); Potassium 4.5 mmol/L (3.5-5.1); Total Protein 7.2 gm/dl (6.0-8.3)
--- NOTE | 2024-11-19 15:16 | CT Scan Report ---
INDICATION: Abdominal pain. COMPARISON: No relevant priors available. TECHNIQUE: Axial CT images of the abdomen and pelvis were obtained following IV contrast administration. Coronal and sagittal reformations were reviewed. FINDINGS: Subsegmental atelectasis in the lung bases. 1 cm right hepatic lobe cyst. The gallbladder, spleen, pancreas and adrenal glands appear unremarkable. No hydronephrosis. A few bilateral renal cysts measuring up to 4 cm on the left. Large hiatal hernia. No evidence of bowel obstruction/colitis/appendicitis. Colonic diverticula noted. Fluid seen in the small bowel and colon No free air. No drainable fluid collection. Negative for abdominal aortic aneurysm or dissection. The urinary bladder appears unremarkable. The prostate gland appears surgically absent. Small fat-containing left inguinal hernia. Degenerative changes in the spine. No acute osseous abnormality evident. IMPRESSION: 1. Findings likely related to enteritis/diarrhea. 2. Large hiatal hernia. 3. Small hepatic cyst. Electronically signed by Carlos Manuel Monzon 11-19-2024 3:15 PM
--- NOTE | 2024-11-19 15:16 | CT Scan Report ---
INDICATION: Pain and injury. COMPARISON: CT brain from 10/12/2020 TECHNIQUE: Axial CT images of the head were obtained without IV contrast. Coronal and sagittal reformations were reviewed. FINDINGS: Brar-white differentiation is relatively preserved. No mass, mass effect or midline shift. Chronic ischemic white matter changes. Cortical atrophy. Basal ganglia calcifications. No evidence of acute large territorial infarction or acute intracranial hemorrhage. Ventricles appear normal in size. Basal cisterns are patent. No depressed calvarial fracture. IMPRESSION: No acute intracranial process. Electronically signed by Carlos Manuel Monzon 11-19-2024 3:15 PM
[2024-11-19 15:39] LABS: Adenovirus PCR Not Detected (NotDetected); Bordetella parapertussis PCR Not Detected (NotDetected); Bordetella pertussis PCR Not Detected (NotDetected); Chlamydia pneumoniae PCR Not Detected (NotDetected); Coronavirus 229E PCR Not Detected (NotDetected); Coronavirus CoV-2 (COVID19)PCR Not Detected (NotDetected); Coronavirus HKU1 PCR Not Detected (NotDetected); Coronavirus NL63 PCR Not Detected (NotDetected); Coronavirus OC43PCR Not Detected (NotDetected); Human Metapneumovirus PCR Not Detected (NotDetected); Influenza A PCR Not Detected (NotDetected); Influenza B PCR Not Detected (NotDetected); Mycoplasma pneumoniae PCR Not Detected (NotDetected); Parainfluenza Virus 1 PCR Not Detected (NotDetected); Parainfluenza Virus 2 PCR Not Detected (NotDetected); Parainfluenza Virus 3 PCR Not Detected (NotDetected); Parainfluenza Virus 4 PCR Not Detected (NotDetected); Respiratory Syncytial VirusPCR Not Detected (NotDetected); Rhinovirus/Enterovirus PCR Not Detected (NotDetected)
--- NOTE | 2024-11-19 15:46 | History & Physical Report ---
Date of Service November 19, 2024 Assessment & Plan (1) Fall: (2) Diarrhea: Plan: Pt found on bathroom floor + diarrhea, [facility], she is positive for Norovirus and currently hospitalized here CT abd pelvis obtained in ED: + hiatal hernia, enteritis/ diarrhea - will obtain stool pcr - received IVF, will cont. - cont. to closely monitor Mild KM on CKD 3 Creatinine POC 1.5, then repeat w/ labs 1.35 - received IVF in ED, will cont. - monitor renal function, BMP AM Hepatic lobe cyst and renal cysts - noted on CT abd - follow up as outpt Chronic conditions Hx of CVA on aspirin, Lipitor Hx of pulmonary embolism on Eliquis, hold for now given fall, ok to resume tmrw if w/o any new concerning neuro symptoms Paroxysmal atrial fibrillation: admit to tele - on Eliquis, hold for now given fall, ok to resume tmrw if w/o any new concerning neuro symptoms Hx of malignancy Reported history of lung and prostate cancer, treated surgically Mixed Alzheimer's and vascular dementia Monitor for delirium History of Present Illness Chief Complaint: nausea, vomiting, diarrhea Primary Care Provider: Ranulfo Schumacher, DO 84 M w/ hx of dementia, hx of CVA, hx of PE, CKD stage 3, hx of prostate and lung ca (treated surgically), pAfib who presents after found on the floor by his son/caregiver. Pt was found in bathroom with diarrhea and likely vomiting. Pt's son is present at the bedside in the ED and reports his mom is staying in [facility] but currently is hospitalized here and found to be positive for Norovirus. Pt's son provides hx as pt has dementia. Discussed w/ ED physician - CT abd pelvis obtained and unremarkable, positive for hiatal hernia and enteritis/ diarrhea. Will obtain stool sample for testing. received IVF, will continue. Pt otherwise denies fever, chills, chest pain, shortness of breath, abd pain at this time. Allergies Allergy/AdvReac Type Severity Reaction Status Date / Time oxycodone AdvReac Severe became Verified 10/12/24 20:52 apneic and bradycardic Home Medications Medication Instructions Recorded Confirmed Type citalopram 20 mg tablet 20 mg PO QAM 08/31/18 11/19/24 History pantoprazole 40 mg tablet,delayed 40 mg PO QAM 08/31/18 11/19/24 History release carvedilol 6.25 mg tablet 6.25 mg PO QPM 03/09/20 11/19/24 History gabapentin 100 mg capsule 100 mg PO AMPM 03/09/20 11/19/24 History aspirin 81 mg tablet,delayed 81 mg PO QPM 07/04/20 11/19/24 History release albuterol sulfate 90 mcg/actuation 2 puff inhalation Q6 PRN Shortness 07/07/20 11/19/24 History aerosol inhaler Of Breath Or Wheezing atorvastatin 40 mg tablet 40 mg PO QPM 10/04/20 11/19/24 History apixaban 5 mg tablet (Eliquis) 5 mg PO AMHS 10/12/24 11/19/24 History magnesium oxide 400 mg PO QPM 10/12/24 11/19/24 History meclizine 12.5 mg tablet 12.5 mg PO AMPM 10/12/24 11/19/24 History multivitamin with minerals 1 cap PO QAM 10/12/24 11/19/24 History buspirone 5 mg tablet 5 mg PO AMPM 11/19/24 11/19/24 History meclizine 12.5 mg tablet 12.5 mg PO .IN AFTERNOON PRN 11/19/24 11/19/24 History Dizziness Past Med/Surg History Problem List (Updated 11/19/24 @ 17:20 by Bryant Butterfield MD) Diarrhea Fall Paroxysmal atrial fibrillation Mixed Alzheimer's and vascular dementia Anginal equivalent Dyspnea on minimal exertion Complete left bundle branch block (Acute) Chest pain (Acute) COVID-19 (Acute) Pneumonia involving right lung (Acute) Pneumonia involving right lung Vomiting (Acute) Headache (Acute) Chest pain (Acute) Acute ischemic stroke Acute confusion (Acute) History of CVA (cerebrovascular accident) (Acute) Middle cerebral artery stenosis (Acute) Pre-diabetes Aneurysmal dilatation Weakness (Acute) History of pulmonary embolism Supratherapeutic INR (Acute) Acute cerebrovascular accident (Acute) CKD (chronic kidney disease) stage 3, GFR 30-59 ml/min (Acute) Status post reverse arthroplasty of left shoulder (Acute ~05/2020) HTN (hypertension) Migraine (Chronic) HX OF DVT prophylaxis Medical History On anticoagulant therapy Pulmonary embolism hospitalized 03/12/2020-03/15/2020 [facility] w/ BL PE; unk etiology; on coumadin Degenerative disc disease Osteoarthritis GERD (gastroesophageal reflux disease) Cancer LUNG AND PROSTATE CANCER, both treated surgically Asthma Using albuterol inhaler TID now since PEs. Previously wasn't using inhaler at all. Surgical History History of cataract surgery LEFT/RIGHT History of carpal tunnel release RT X 2 LEFT X 3 History of laminectomy LUMBAR History of prostatectomy History of esophagogastroduodenoscopy (EGD) History of colonoscopy History of herniorrhaphy RT INGUINAL History of lobectomy of lung RT MIDDLE LOBE History of tooth extraction History of tonsillectomy History of adenoidectomy Family History Father FHx: prostate cancer Grandfather (Paternal) FHx: prostate cancer Social History Smoking Status: Former smoker Tobacco Type: Cigars Second Hand Exposure: No; Do You Dip or Chew Tobacco: No; Hx Alcohol Use: No Hx Substance Use: No Preferred Language: Arabic Communication Ability: Effective 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: No Beliefs That Will Affect Care: None marital status: Current Living Situation: Family Current Living Situation Comment: daughter is living with him currently Feels Safe at Home: Yes Assistive Devices: Cane and Walker Review of Systems Review of Systems: All systems reviewed & are unremarkable except as noted in Subjective Physical Exam Constitutional: WD/WN, vitals as above Eyes: PERRL, conjunctivae normal, anicteric sclerae ENMT: external ear and nose normal, oropharynx normal Neck: normal visual inspection Respiratory: normal respiratory effort, lungs clear to auscultation Cardiovascular: RRR, no murmur, no edema Chest (Breasts): Chest: normal inspection of chest Gastrointestinal (Abdomen): normal bowel sounds, soft, nontender, no hepatosplenomegaly Musculoskeletal: Head/Neck/Chest: normocephalic Skin: no rashes, warm and dry Neurologic: PERRL, EOMI, accommodation nl, no face palsy, no dysarthria Psychiatric: A+Ox3, euthymic affect Results & Data Results & Data Vital Signs (Past 12 Hours) Vital Signs Temp Pulse Pulse Resp BP BP Pulse Ox 11/19/24 15:30 88 16 139/75 93 11/19/24 14:26 86 22 95 11/19/24 14:20 94 H 11/19/24 13:42 37.2 C 96 H 18 138/91 98 O2 Del Method 11/19/24 15:30 Room Air 11/19/24 14:26 Room Air 11/19/24 14:20 11/19/24 13:42 Room Air Laboratory Results 11/19/24 11/19/24 11/19/24 Range/Units 14:30 14:26 14:21 WBC 9.98 (4.8-10.8) K/ul RBC 4.94 (4.70-6.10) M/uL Hgb 12.9 L (14.0-18.0) g/dl POC Hgb 13.6 L (14.0-18.0) g/dl Hct 40.1 L (42.0-52.0) % POC Hct 40 L (42-52) % MCV 81.2 (80.0-100.0) fL MCH 26.1 (25.0-34.0) pg MCHC 32.2 (32.0-36.0) g/dL RDW Std Deviation 45.2 (36.4-46.3) fL RDW Coeff of Marely 15.6 H (11.5-14.5) % Plt Count 268 (130-400) K/uL MPV 9.4 (9.4-12.4) fL Immature Gran % (Auto) 0.4 % Neut % (Auto) 87.5 % Lymph % (Auto) 5.3 % Sharkey % (Auto) 6.1 % Eos % (Auto) 0.6 % Baso % (Auto) 0.1 % Neut # (Auto) 8.73 H (1.40-6.50) K/uL Lymph # (Auto) 0.53 L (1.20-3.40) K/uL Sharkey # (Auto) 0.61 H (0.11-0.59) K/uL Eos # (Auto) 0.06 (0.00-0.50) K/uL Baso # (Auto) 0.01 (0.00-0.20) K/uL Immature Gran # (Auto) 0.04 (0.01-0.20) K/uL POC Sodium 135 (135-144) mmol/L Sodium 135 L (136-145) mmol/L POC Potassium 5.5 H (3.3-5.0) mmol/L Potassium 4.5 (3.5-5.1) mmol/L POC Chloride 101 (101-112) mmol/L Chloride 101 (98-107) mmol/L Carbon Dioxide 26 (21-32) mmol/L POC Total CO2 25 (24-31) mmol/L Anion Gap 8 (3-11) POC Anion Gap 16.0 (16-25) mmol/L POC BUN 22 H (7-18) mg/dl BUN 18 (6-23) mg/dl Creatinine 1.35 (0.6-1.4) mg/dl POC Creatinine 1.5 H (0.6-1.3) mg/dl Est Cr Clr Drug Dosing 35.4 ml/min eGFR 51.13 BUN/Creatinine Ratio 13.3 (10-20) Glucose 98 (70-99(Fasting)) mg/dl POC Glucose (other) 100 H (70-99) mg/dl Calcium 9.6 (8.6-10.3) mg/dl POC Ioniz Calcium Eliza 1.14 (1.12-1.32) mmol/l Total Bilirubin 1.0 (0.2-1.0) mg/dl AST 22 (13-39) U/L ALT 17 (7-52) U/L Alkaline Phosphatase 86 (34-104) U/L Total Protein 7.2 (6.0-8.3) gm/dl Albumin 4.3 (3.4-5.0) gm/dl Globulin 2.9 (2.5-4.0) gm/dl Albumin/Globulin Ratio 1.5 (0.9-2) Lipase 116 H (11-82) U/L Adenovirus (PCR) Not Detected (NotDetected) B. pertussis DNA (PCR) Not Detected (NotDetected) B.parapertussis DNA PCR Not Detected (NotDetected) C. pneumoniae DNA (PCR) Not Detected (NotDetected) Coronavirus OC43 (PCR) Not Detected (NotDetected) Coronavirus HKU1 (PCR) Not Detected (NotDetected) Coronavirus 229E (PCR) Not Detected (NotDetected) SARS-CoV-2 (PCR) Not Detected (NotDetected) Coronavirus NL63 (PCR) Not Detected (NotDetected) Human Metapneumovir PCR Not Detected (NotDetected) Influenza Type A (PCR) Not Detected (NotDetected) Influenza Type B (PCR) Not Detected (NotDetected) M. pneumoniae (PCR) Not Detected (NotDetected) Parainfluenza 1 (PCR) Not Detected (NotDetected) Parainfluenza 2 (PCR) Not Detected (NotDetected) Parainfluenza 3 (PCR) Not Detected (NotDetected) Parainfluenza 4 (PCR) Not Detected (NotDetected) RSV (PCR) Not Detected (NotDetected) Entero/Rhino (PCR) Not Detected (NotDetected) Diagnostic Findings CT head FINDINGS: Brar-white differentiation is relatively preserved. No mass, mass effect or midline shift. Chronic ischemic white matter changes. Cortical atrophy. Basal ganglia calcifications. No evidence of acute large territorial infarction or acute intracranial hemorrhage. Ventricles appear normal in size. Basal cisterns are patent. No depressed calvarial fracture. IMPRESSION: No acute intracranial process. Ct abd pelvis FINDINGS: Subsegmental atelectasis in the lung bases. 1 cm right hepatic lobe cyst. The gallbladder, spleen, pancreas and adrenal glands appear unremarkable. No hydronephrosis. A few bilateral renal cysts measuring up to 4 cm on the left. Large hiatal hernia. No evidence of bowel obstruction/colitis/appendicitis. Colonic diverticula noted. Fluid seen in the small bowel and colon No free air. No drainable fluid collection. Negative for abdominal aortic aneurysm or dissection. The urinary bladder appears unremarkable. The prostate gland appears surgically absent. Small fat-containing left inguinal hernia. Degenerative changes in the spine. No acute osseous abnormality evident. IMPRESSION: 1. Findings likely related to enteritis/diarrhea. 2. Large hiatal hernia. 3. Small hepatic cyst.
[2024-11-19] MEDS ORDERED: ALBUTEROL HFA 8 GM INHALER INH PRN (18:22)
[2024-11-19 18:29] LABS: Appearance Urine Clear (Clear); Bilirubin Urine Negative (Negative); Blood Urine Negative (Negative); Color Urine Yellow; Glucose Urine UA Negative (Negative); Ketones Urine Trace (Negative); Leukocyte Esterase Urine Negative (Negative); Nitrite Urine Negative (Negative); Protein Urine Negative (Negative); Specific Gravity Urine > 1.045 (1.000-1.030); Urobilinogen Urine Negative (Negative); pH Urine 7.5 (4.5-7.5)
[2024-11-19] MEDS: MECLIZINE 12.5 MG TAB PO SCH (21:12)
[2024-11-19] MEDS: busPIRone 5 MG TAB PO SCH (21:12)
[2024-11-19] MEDS: GABAPENTIN 100 MG CAP PO SCH (21:13)
[2024-11-19] MEDS: carvediloL 6.25 MG TAB PO SCH (21:13)
[2024-11-19] MEDS: MAGNESIUM OXIDE 400 MG TAB PO SCH (21:13)
[2024-11-20 04:41] LABS: Hematocrit (blood only) 32.3 % (42.0-52.0); Hemoglobin 10.5 g/dl (14.0-18.0); Mean Corpuscular Hgb Conc 32.5 g/dL (32.0-36.0); Mean Platelet Volume 9.1 fL (9.4-12.4); Platelet Count 179 K/uL (130-400); RDW Coefficient of Variation 15.7 % (11.5-14.5); RDW Standard Deviation 45.1 fL (36.4-46.3); Red Blood Count 4.04 M/uL (4.70-6.10)
[2024-11-20 04:50] LABS: Calcium 8.2 mg/dl (8.6-10.3); Creatinine Clr Calc Pharmacy 47.9 ml/min; Magnesium 1.8 mg/dl (1.7-2.4); Phosphorus 2.8 mg/dl (2.5-4.9)
[2024-11-20] MEDS: ACETAMINOPHEN 325 MG TAB PO PRN (05:16)
[2024-11-20] MEDS: SODIUM CHLORIDE 0.9% 1,000 ML IV SCH (09:15)
--- NOTE | 2024-11-20 10:21 | Electrocardiogram Report ---
Test Reason : Blood Pressure : */* mmHG Vent. Rate : 90 BPM Atrial Rate : 90 BPM P-R Int : 162 ms QRS Dur : 110 ms QT Int : 384 ms P-R-T Axes : 64 -31 56 degrees QTcB Int : 469 ms Normal sinus rhythm Left axis deviation Incomplete left bundle block Abnormal ECG When compared with ECG of 12-Oct-2024 17:25, No significant change Confirmed by Alexander Graves ([id number]) on 11/20/2024 10:21:30 AM Referred By: REFERRED SELF Confirmed By: Alexander Graves
[2024-11-20] MEDS: CEROVITE ADV FORMULA TAB PO SCH (11:14)
[2024-11-20] MEDS: PANTOprazole 40 MG TAB PO SCH (11:14)
[2024-11-20] MEDS: CITALOPRAM 20 MG TAB PO SCH (11:15)
--- NOTE | 2024-11-20 12:23 | Hospitalist Progress Note ---
Date of Service November 20, 2024 Assessment & Plan (1) Fall: (2) Diarrhea: Plan: Pt found on bathroom floor + diarrhea, vomiting visited at [facility], she is positive for Norovirus and currently hospitalized here CT abd pelvis obtained in ED: + hiatal hernia, enteritis/ diarrhea - will obtain stool pcr - received IVF, will cont. - cont. to closely monitor 11/20 patient found on the floor by son son states patient usually lowers himself on the floor if he feels tired no witnessed loss of consciousness CT head: negative check Ortho VS continue IV fluids monitor in Tele PT/OT eval Mild KM on CKD 3 Creatinine POC 1.5, then repeat w/ labs 1.35 - received IVF in ED, will cont. - monitor renal function, BMP AM crea 1.00 continue gentle IV fluids Hepatic lobe cyst and renal cysts - noted on CT abd - follow up as outpt Chronic conditions Hx of CVA on aspirin, Lipitor Hx of pulmonary embolism on Eliquis, hold for now given fall, ok to resume tmrw if w/o any new concerning neuro symptoms Paroxysmal atrial fibrillation: admit to tele - on Eliquis, hold for now given fall, ok to resume tmrw if w/o any new concerning neuro symptoms Hx of malignancy Reported history of lung and prostate cancer, treated surgically Mixed Alzheimer's and vascular dementia Monitor for delirium DVT Px SCDs Disposition PT/OT eval lives with and son plan of care discussed with patient and his son in detail and at length all questions answered they are understanding, agreeable, comfortable with the plan of care Admission and Anticipated Discharge Date Admission Date: November 19, 2024 Subjective ff up for weakness, etc seen resting in bed, sitting up comfortable, awake, alert, conversant, pleasant states he feels ok overall a little tired has mild frontal headache- typical of migraine denies neck pain, chest pain, shortness of breath, cough, abdominal pain, nausea/vomiting, extremity pain no nausea, diarrhea today does not recall events yesterday leading to admission, forgetful son Mukul at bedside visiting states he is mostly back to baseline able to get up and walk to the ER bathroom, no issues per son Review of Systems Review of Systems: all noted and negative except for above Physical Exam Physical Exam: General- oriented x 2. forgetful, not in distress, speaks in sentences with no effort or accessory muscle use Eyes- anicteric Neck- no JVD Lungs- clear breath sounds bilaterally, no rales/wheezes Heart- normal rate, regular rhythm; no murmurs Abdomen- normal bowel sounds, nondistended, soft, no tenderness Extremities- no pretibial edema, no calf tenderness Neuro- alert, oriented x 3; no gross focal neurologic deficits Skin- warm & dry Results & Data Results & Data Vital Signs (Past 12 Hours) Vital Signs Pulse Pulse Resp BP Pulse Ox O2 Del Method 11/20/24 07:28 104 H 11/20/24 07:00 93 H 18 118/61 97 Room Air 11/20/24 06:32 85 20 102/53 L 92 Room Air 11/20/24 05:34 90 16 97 Room Air 11/20/24 05:33 90 16 156/89 H 97 Room Air 11/20/24 04:00 89 17 146/81 H 93 Room Air all noted and reviewed including below
[2024-11-21 02:46] LABS: Adenovirus F 40/41 PCR Not Detected (NotDetected); Astrovirus PCR Not Detected (NotDetected); Campylobacter PCR Not Detected (NotDetected); Cryptosporidium PCR Not Detected (NotDetected); Cyclospora cayetanensis PCR Not Detected (NotDetected); Entamoeba histolytica PCR Not Detected (NotDetected); Enteroaggregative E.coli(EAEC) Not Detected (NotDetected); Enteropathogenic E.coli (EPEC) Not Detected (NotDetected); Enterotoxigenic E.coli (ETEC) Not Detected (NotDetected); Giardia lamblia PCR Not Detected (NotDetected); Plesiomonas shigelloides PCR Not Detected (NotDetected); Rotavirus A PCR Not Detected (NotDetected); Salmonella PCR Not Detected (NotDetected); Sapovirus PCR Not Detected (NotDetected); Shiga-like Toxin E.coli (STEC) Not Detected (NotDetected); Shigella/Enteroinvasive E.coli Not Detected (NotDetected); Vibrio cholerae PCR Not Detected (NotDetected); Vibrio species PCR Not Detected (NotDetected); Yersinia enterocolitica PCR Not Detected (NotDetected)
[2024-11-21 02:48] LABS: Norovirus GI/GII PCR DETECTED (NotDetected)
[2024-11-21 08:40] LABS: Basophils # (auto) 0.01 K/uL (0.00-0.20); Basophils % (auto) 0.2 %; Eosinophils # (auto) 0.08 K/uL (0.00-0.50); Eosinophils % (auto) 1.4 %; Hemoglobin 9.2 g/dl (14.0-18.0); Immature Granulocytes # (auto) 0.02 K/uL (0.01-0.20); Immature Granulocytes % (auto) 0.4 %; Lymphocytes # (auto) 1.49 K/uL (1.20-3.40); Lymphocytes % (auto) 26.4 %; Mean Corpuscular Hemoglobin 25.9 pg (25.0-34.0); Mean Corpuscular Hgb Conc 31.7 g/dL (32.0-36.0); Mean Corpuscular Volume 81.7 fL (80.0-100.0); Mean Platelet Volume 9.1 fL (9.4-12.4); Monocytes # (auto) 0.73 K/uL (0.11-0.59); Monocytes % (auto) 12.9 %; Neutrophils # (auto) 3.32 K/uL (1.40-6.50); Neutrophils % (auto) 58.7 %; Platelet Count 153 K/uL (130-400); RDW Coefficient of Variation 15.8 % (11.5-14.5); Red Blood Count 3.55 M/uL (4.70-6.10); White Blood Count 5.65 K/ul (4.8-10.8)
[2024-11-21 09:03] LABS: BUN Creatinine Ratio 14.7 (10-20); Creatinine Clr Calc Pharmacy 41.3 ml/min; Magnesium 1.7 mg/dl (1.7-2.4); Phosphorus 2.9 mg/dl (2.5-4.9); Potassium 4.2 mmol/L (3.5-5.1)
[2024-11-21] MEDS: PANTOPRAZOLE BOLUS/DRIP IV STA (12:56)
[2024-11-21] MEDS: PANTOprazole 80 MG in DEXTROSE 5% 100 ML IV ONE (13:25)
[2024-11-21] MEDS: D5W AND NSS 1,000 ML IV SCH (13:25)
[2024-11-21] MEDS: PANTOprazole 40 MG in DEXTROSE 5% MINI-B 100 ML IV SCH (13:46)
[2024-11-21 15:09] LABS: Hematocrit (blood only) 29.6 % (42.0-52.0); Hemoglobin 9.4 g/dl (14.0-18.0)
--- NOTE | 2024-11-21 16:38 | Hospitalist Progress Note ---
Date of Service November 21, 2024 Assessment & Plan (1) Fall: (2) Diarrhea: Plan: Pt found on bathroom floor + diarrhea, vomiting visited at [facility], she is positive for Norovirus and currently hospitalized here CT abd pelvis obtained in ED: + hiatal hernia, enteritis/ diarrhea - will obtain stool pcr - received IVF, will cont. - cont. to closely monitor 11/20 patient found on the floor by son son states patient usually lowers himself on the floor if he feels tired no witnessed loss of consciousness CT head: negative check Ortho VS continue IV fluids monitor in Tele PT/OT eval 11/21 Stool panel positive for norovirus Continue supportive care including IV fluids Anemia possible Acute Blood Loss Hemoglobin trending down Suspect GI bleed Check fecal occult blood N.p.o. Protonix drip Eliquis and aspirin on hold Will consult GI pending fecal occult blood test Mild KM on CKD 3 Creatinine POC 1.5, then repeat w/ labs 1.35 - received IVF in ED, will cont. - monitor renal function, BMP AM crea 1.00 continue gentle IV fluids Hepatic lobe cyst and renal cysts - noted on CT abd - follow up as outpt Chronic conditions Hx of CVA on aspirin, Lipitor -- Hold aspirin in light of anemia Hx of pulmonary embolism on Eliquis, hold for now given fall, ok to resume tmrw if w/o any new concerning neuro symptoms -- Hold Eliquis in light of anemia Paroxysmal atrial fibrillation: admit to tele - Hold Eliquis for above Hx of malignancy Reported history of lung and prostate cancer, treated surgically Mixed Alzheimer's and vascular dementia Monitor for delirium DVT Px SCDs Disposition PT/OT eval lives with and son plan of care discussed with His daughter Radhika at the bedside in detail and at length all questions answered She is understanding, agreeable, comfortable with the plan of care Family also requesting for palliative care consultation Re: Progressive dementia, functional decline Admission and Anticipated Discharge Date Admission Date: November 19, 2024 Subjective Follow-up for weakness, etc. Seen resting in bed, comfortable, not in distress Sleeping, easily awakened, feels weak Also has some abdominal bloating Denies chest pain, shortness of breath, palpitations Noted to be unstable when ambulating to the bathroom Patient's daughter Radhika at the bedside visiting More background information obtained from Radhika Review of Systems Review of Systems: all noted and negative except for above Physical Exam Physical Exam: General- oriented x 1-2, forgetful, not in distress, speaks in sentences with no effort or accessory muscle use Eyes- anicteric Neck- no JVD Lungs- clear breath sounds bilaterally, no rales/wheezes Heart- normal rate, regular rhythm; no murmurs Abdomen- normal bowel sounds, nondistended, soft, nontender Extremities- no pretibial edema, no calf tenderness Neuro- alert, oriented x 1-2; no gross focal neurologic deficits Skin- warm & dry Results & Data Results & Data Vital Signs (Past 12 Hours) Vital Signs Temp Pulse Pulse Resp BP Pulse Ox O2 Del Method 11/21/24 16:29 36.8 C 78 16 144/76 H 92 Room Air 11/21/24 13:53 69 11/21/24 12:29 36.9 C 72 20 133/76 93 Room Air 11/21/24 10:26 Room Air 11/21/24 09:04 77 11/21/24 07:45 36.9 C 74 20 111/64 91 Room Air all noted and reviewed including below
[2024-11-22 09:00] LABS: Basophils # (auto) 0.01 K/uL (0.00-0.20); Basophils % (auto) 0.2 %; Eosinophils # (auto) 0.11 K/uL (0.00-0.50); Eosinophils % (auto) 2.3 %; Eosinophils % (auto) 2.4 %; Hematocrit (blood only) 29.8 % (42.0-52.0); Hematocrit (blood only) 30.2 % (42.0-52.0); Hemoglobin 9.8 g/dl (14.0-18.0); Immature Granulocytes # (auto) 0.01 K/uL (0.01-0.20); Immature Granulocytes % (auto) 0.2 %; Lymphocytes # (auto) 1.39 K/uL (1.20-3.40); Lymphocytes # (auto) 1.47 K/uL (1.20-3.40); Lymphocytes % (auto) 32.6 %; Mean Corpuscular Hemoglobin 27.1 pg (25.0-34.0); Mean Corpuscular Hgb Conc 32.5 g/dL (32.0-36.0); Mean Corpuscular Hgb Conc 33.6 g/dL (32.0-36.0); Mean Corpuscular Volume 80.1 fL (80.0-100.0); Mean Corpuscular Volume 80.8 fL (80.0-100.0); Mean Platelet Volume 9.4 fL (9.4-12.4); Mean Platelet Volume 9.9 fL (9.4-12.4); Monocytes # (auto) 0.62 K/uL (0.11-0.59); Monocytes # (auto) 0.63 K/uL (0.11-0.59); Monocytes % (auto) 13.7 %; Monocytes % (auto) 14.5 %; Neutrophils # (auto) 2.29 K/uL (1.40-6.50); Neutrophils % (auto) 50.8 %; Neutrophils % (auto) 50.9 %; Platelet Count 174 K/uL (130-400); Platelet Count 179 K/uL (130-400); RDW Coefficient of Variation 15.8 % (11.5-14.5); RDW Coefficient of Variation 15.9 % (11.5-14.5); RDW Standard Deviation 45.8 fL (36.4-46.3); RDW Standard Deviation 46.7 fL (36.4-46.3); Red Blood Count 3.69 M/uL (4.70-6.10); Red Blood Count 3.77 M/uL (4.70-6.10); White Blood Count 4.34 K/ul (4.8-10.8); White Blood Count 4.51 K/ul (4.8-10.8)
[2024-11-22 09:01] LABS: Reticulocyte % 1.18 % (0.50-2.00); Reticulocytes # 0.04 10^6/uL (0.020-0.100)
[2024-11-22 09:16] LABS: Albumin Globulin Ratio 1.3 (0.9-2); Albumin Level 3.1 gm/dl (3.4-5.0); BUN Creatinine Ratio 9.8 (10-20); Bilirubin,Total 0.4 mg/dl (0.2-1.0); Calcium 8.1 mg/dl (8.6-10.3); Creatinine Clr Calc Pharmacy 46.9 ml/min; Globulin 2.4 gm/dl (2.5-4.0); Magnesium 1.7 mg/dl (1.7-2.4); Phosphorus 3.1 mg/dl (2.5-4.9); Potassium 3.8 mmol/L (3.5-5.1); Total Protein 5.5 gm/dl (6.0-8.3)
[2024-11-22 09:17] LABS: BUN Creatinine Ratio 8.7 (10-20); Potassium 3.7 mmol/L (3.5-5.1)
[2024-11-22 09:35] LABS: Ferritin 19.3 ng/ml (8-388)
[2024-11-22 09:39] LABS: Folate (Folic Acid),Ser orPlas > 22.30 ng/ml (>5.38)
[2024-11-22 09:40] LABS: Vitamin B12 310 pg/ml (180-914)
[2024-11-22] MEDS: D5W AND NSS 1,000 ML IV SCH (14:24)
--- NOTE | 2024-11-22 17:07 | Hospitalist Progress Note ---
Date of Service November 22, 2024 Assessment & Plan (1) Fall: (2) Diarrhea: (3) Norovirus: (4) Anemia: Plan: Pt found on bathroom floor + diarrhea, vomiting visited [facility], she is positive for Norovirus and currently hospitalized here CT abd pelvis obtained in ED: + hiatal hernia, enteritis/ diarrhea CT head: negative Stool panel positive for norovirus Continue supportive care including IV fluids Anemia possible Acute Blood Loss (+) FOBT Hemoglobin trended down during admission--> 9, remained stable N.p.o. Protonix drip Eliquis and aspirin on hold discussed with patient's daughter declines EGD/Colonoscopy at this point continue Protonix drip today then transition to IV BID tomorrow advance diet tomorrow if stable patient's family would like to transition patient to palliative care given progressive Dementia Palliative care svc consulted Mild KM on CKD 3 Creatinine POC 1.5, then repeat w/ labs 1.35 crea 1.00 continue gentle IV fluids Hepatic lobe cyst and renal cysts - noted on CT abd Chronic conditions Hx of CVA on aspirin, Lipitor -- Hold aspirin in light of anemia Hx of pulmonary embolism on Eliquis, hold for now given fall, ok to resume tmrw if w/o any new concerning neuro symptoms -- Hold Eliquis in light of anemia Paroxysmal atrial fibrillation: admit to tele - Hold Eliquis for above Hx of malignancy Reported history of lung and prostate cancer, treated surgically Mixed Alzheimer's and vascular dementia Monitor for delirium DVT Px SCDs Disposition PT/OT eval lives with and son plan of care discussed with His daughter Radhika at the bedside in detail and at length all questions answered She is understanding, agreeable, comfortable with the plan of care Family requested palliative care consultation Re: Progressive dementia, functional decline plan to transition to SNF/ Palliative care Admission and Anticipated Discharge Date Admission Date: November 19, 2024 Subjective ff up for weakness, Norovirus, anemia, etc seen resting in bed, mostly sleeping daughter Radhika at bedside no report of melena/hematochezia, abdominal pain still feeling weak, mostly just sleeping no signs of pain, shortness of breath Review of Systems Review of Systems: all noted and negative except for above Physical Exam Physical Exam: General- not in distress, weak Eyes- anicteric Neck- no JVD Lungs- clear breath sounds bilaterally, no rales/wheezes Heart- normal rate, regular rhythm; no murmurs Abdomen- normal bowel sounds, nondistended, soft, nontender Extremities- no pretibial edema, no calf tenderness Neuro- asleep Skin- warm & dry Results & Data Results & Data Vital Signs (Past 12 Hours) Vital Signs Temp Pulse Pulse Resp BP BP Pulse Ox 11/22/24 14:43 36.6 C 66 18 165/90 H 92 11/22/24 13:26 72 11/22/24 10:28 36.9 C 75 16 147/68 H 96 11/22/24 08:45 11/22/24 07:00 36.9 C 80 16 150/82 H 95 11/22/24 07:00 66 O2 Del Method 11/22/24 14:43 Room Air 11/22/24 13:26 11/22/24 10:28 Room Air 11/22/24 08:45 Room Air 11/22/24 07:00 Room Air 11/22/24 07:00 all noted and reviewed including below
[2024-11-23 06:48] LABS: Basophils # (auto) 0.01 K/uL (0.00-0.20); Basophils % (auto) 0.2 %; Eosinophils # (auto) 0.12 K/uL (0.00-0.50); Eosinophils % (auto) 2.4 %; Hematocrit (blood only) 30.5 % (42.0-52.0); Immature Granulocytes # (auto) 0.02 K/uL (0.01-0.20); Immature Granulocytes % (auto) 0.4 %; Lymphocytes # (auto) 1.87 K/uL (1.20-3.40); Lymphocytes % (auto) 37.2 %; Mean Corpuscular Hemoglobin 26.4 pg (25.0-34.0); Mean Corpuscular Hgb Conc 32.8 g/dL (32.0-36.0); Mean Corpuscular Volume 80.5 fL (80.0-100.0); Mean Platelet Volume 9.7 fL (9.4-12.4); Monocytes # (auto) 0.56 K/uL (0.11-0.59); Monocytes % (auto) 11.1 %; Neutrophils # (auto) 2.45 K/uL (1.40-6.50); Neutrophils % (auto) 48.7 %; Platelet Count 189 K/uL (130-400); RDW Coefficient of Variation 15.9 % (11.5-14.5); RDW Standard Deviation 45.9 fL (36.4-46.3); Red Blood Count 3.79 M/uL (4.70-6.10); White Blood Count 5.03 K/ul (4.8-10.8)
[2024-11-23 07:21] LABS: Albumin Globulin Ratio 1.2 (0.9-2); Albumin Level 3.2 gm/dl (3.4-5.0); BUN Creatinine Ratio 5.7 (10-20); Bilirubin,Total 0.5 mg/dl (0.2-1.0); Calcium 8.2 mg/dl (8.6-10.3); Creatinine Clr Calc Pharmacy 45.6 ml/min; Globulin 2.6 gm/dl (2.5-4.0); Magnesium 1.6 mg/dl (1.7-2.4); Phosphorus 3.2 mg/dl (2.5-4.9); Potassium 3.3 mmol/L (3.5-5.1); Total Protein 5.8 gm/dl (6.0-8.3)
[2024-11-23] MEDS: POTASSIUM CHLORIDE PWD 20 MEQ PACK PO SCH (10:33)
[2024-11-23] MEDS: MAGNESIUM OXIDE 400 MG TAB PO SCH (10:36)
--- NOTE | 2024-11-23 13:28 | Hospitalist Progress Note ---
Date of Service November 23, 2024 Assessment & Plan (1) Fall: (2) Diarrhea: (3) Norovirus: (4) Anemia: Plan: Acute gastroenteritis Norovirus Patient was found on the bathroom floor; had nausea, diarrhea. visited at [facility], she is positive for Norovirus and currently hospitalized here CT abd pelvis obtained in ED: + hiatal hernia, enteritis/ diarrhea CT head: negative Stool panel positive for norovirus Diarrhea resolved; started on diet. Anemia possible Acute Blood Loss (+) FOBT Hemoglobin trended down during admission--> 9, remained stable Continue Protonix drip Eliquis and aspirin on hold Previous attending discussed with patient's daughter; does not want EGD or colonoscopy. Plan to continue on Protonix Follow-up CBC as outpatient; resume anticoagulation if hemoglobin is stable. patient's family would like to transition patient to palliative care given progressive Dementia Palliative care svc consulted Mild KM on CKD 3 Creatinine POC 1.5, then repeat w/ labs 1.35 creatinine back to baseline Chronic conditions Hx of CVA on aspirin, Lipitor -- Hold aspirin in light of anemia Hx of pulmonary embolism on Eliquis, hold for now given fall, will start dvt prophylaxis while inpatient. Paroxysmal atrial fibrillation: admit to tele - Hold Eliquis for above Hx of malignancy Reported history of lung and prostate cancer, treated surgically Mixed Alzheimer's and vascular dementia Monitor for delirium DVT Px heparin Disposition PT/OT eval Disposition; monitor inpatient for recurrence of GI bleed. Possible discharge in next few days after placement is available Time spent evaluating patient, direct bedside care, chart review, placing orders, interpretation of diagnostic studies, discussion with consultants, patient, and family members, as well as other required patient management activities is 50 minutes Please note the above document was generated using voice recognition software. It may contain grammatical, syntax or spelling errors. Any formal questions or concerns about the content, text or information contained within the body of this dictation should be directly addressed to the provider for clarification Admission and Anticipated Discharge Date Admission Date: November 19, 2024 Subjective Patient seen and examined at bedside. He is comfortably lying in the bed; does not appear to be in any distress He denies any nausea, vomiting or diarrhea now Review of Systems Review of Systems: All systems reviewed & are unremarkable except as noted in Subjective Physical Exam Physical Exam: General- Comfortable; not in any distress Eyes- anicteric Neck- no JVD Lungs- clear breath sounds bilaterally, no rales/wheezes Heart- normal rate, regular rhythm; no murmurs Abdomen- normal bowel sounds, nondistended, soft, nontender Extremities- no pretibial edema, no calf tenderness Neuro- asleep Skin- warm & dry Results & Data Results & Data Vital Signs (Past 12 Hours) Vital Signs Temp Pulse Pulse Resp BP BP Pulse Ox 11/23/24 10:11 87 11/23/24 08:06 11/23/24 07:54 36.9 C 77 20 134/65 91 11/23/24 02:27 36.4 C L 78 16 164/92 H 96 O2 Del Method 11/23/24 10:11 11/23/24 08:06 Room Air 11/23/24 07:54 Room Air 11/23/24 02:27 Room Air
[2024-11-23] MEDS: HEPARIN SOD 5,000 UNIT/0.5 ML VIAL SQ SCH (14:20)
[2024-11-24 07:15] LABS: Basophils # (auto) 0.02 K/uL (0.00-0.20); Basophils % (auto) 0.4 %; Eosinophils # (auto) 0.14 K/uL (0.00-0.50); Eosinophils % (auto) 2.7 %; Hematocrit (blood only) 32.7 % (42.0-52.0); Hemoglobin 10.6 g/dl (14.0-18.0); Immature Granulocytes # (auto) 0.02 K/uL (0.01-0.20); Immature Granulocytes % (auto) 0.4 %; Lymphocytes # (auto) 2.08 K/uL (1.20-3.40); Lymphocytes % (auto) 39.6 %; Mean Corpuscular Hemoglobin 25.9 pg (25.0-34.0); Mean Corpuscular Hgb Conc 32.4 g/dL (32.0-36.0); Mean Corpuscular Volume 79.8 fL (80.0-100.0); Mean Platelet Volume 9.6 fL (9.4-12.4); Monocytes # (auto) 0.62 K/uL (0.11-0.59); Monocytes % (auto) 11.8 %; Neutrophils # (auto) 2.37 K/uL (1.40-6.50); Neutrophils % (auto) 45.1 %; Platelet Count 200 K/uL (130-400); RDW Coefficient of Variation 15.8 % (11.5-14.5); RDW Standard Deviation 45.5 fL (36.4-46.3); White Blood Count 5.25 K/ul (4.8-10.8)
[2024-11-24 07:33] LABS: Albumin Globulin Ratio 1.3 (0.9-2); Albumin Level 3.4 gm/dl (3.4-5.0); BUN Creatinine Ratio 5.7 (10-20); Bilirubin,Total 0.6 mg/dl (0.2-1.0); Calcium 8.6 mg/dl (8.6-10.3); Creatinine Clr Calc Pharmacy 45.1 ml/min; Globulin 2.6 gm/dl (2.5-4.0); Magnesium 1.7 mg/dl (1.7-2.4); Phosphorus 3.4 mg/dl (2.5-4.9); Potassium 3.7 mmol/L (3.5-5.1)
[2024-11-24] MEDS: PANTOprazole 40 MG TAB PO SCH (10:31)
--- NOTE | 2024-11-24 10:41 | Hospitalist Progress Note ---
Date of Service November 24, 2024 Assessment & Plan (1) Fall: (2) Diarrhea: (3) Norovirus: (4) Anemia: Plan: Acute gastroenteritis Norovirus Patient was found on the bathroom floor; had nausea, diarrhea. visited at [facility], she is positive for Norovirus and currently hospitalized here CT abd pelvis obtained in ED: + hiatal hernia, enteritis/ diarrhea CT head: negative Stool panel positive for norovirus Diarrhea resolved; started on diet. Anemia possible Acute Blood Loss (+) FOBT Hemoglobin trended down during admission--> 9, remained stable on protonix Eliquis and aspirin on hold Previous attending discussed with patient's daughter; does not want EGD or colonoscopy. Plan to continue on Protonix Follow-up CBC as outpatient; resume anticoagulation if hemoglobin is stable. patient's family would like to transition patient to palliative care given progressive Dementia Palliative care svc consulted Mild KM on CKD 3 Creatinine POC 1.5, then repeat w/ labs 1.35 creatinine back to baseline Chronic conditions Hx of CVA on aspirin, Lipitor -- Hold aspirin in light of anemia Hx of pulmonary embolism on Eliquis, hold for now given fall, will start dvt prophylaxis while inpatient. Paroxysmal atrial fibrillation: admit to tele - Hold Eliquis for above Hx of malignancy Reported history of lung and prostate cancer, treated surgically Mixed Alzheimer's and vascular dementia Monitor for delirium DVT Px heparin Disposition Awaiting rehab Disposition; monitor inpatient for recurrence of GI bleed. Possible discharge in next few days after placement is available Please note the above document was generated using voice recognition software. It may contain grammatical, syntax or spelling errors. Any formal questions or concerns about the content, text or information contained within the body of this dictation should be directly addressed to the provider for clarification Admission and Anticipated Discharge Date Admission Date: November 19, 2024 Subjective Patient sleeping comfortably; does not appear to be in any distress Vital signs are stable and he is saturating well on room air Review of Systems Review of Systems: All systems reviewed & are unremarkable except as noted in Subjective Physical Exam Physical Exam: General- Comfortable; not in any distress Eyes- anicteric Neck- no JVD Lungs- clear breath sounds bilaterally, no rales/wheezes Heart- normal rate, regular rhythm; no murmurs Abdomen- normal bowel sounds, nondistended, soft, nontender Extremities- no pretibial edema, no calf tenderness Neuro- asleep Skin- warm & dry Results & Data Results & Data Vital Signs (Past 12 Hours) Vital Signs Temp Pulse Pulse Pulse Resp BP BP 11/24/24 07:17 11/24/24 07:03 36.6 C 81 18 159/95 H 11/24/24 07:00 70 11/24/24 03:45 36.7 C 77 20 156/82 H 11/24/24 00:21 36.4 C L 70 20 154/76 H Pulse Ox O2 Del Method 11/24/24 07:17 Room Air 11/24/24 07:03 94 Room Air 11/24/24 07:00 11/24/24 03:45 94 Room Air 11/24/24 00:21 95 Room Air
--- NOTE | 2024-11-24 14:35 | Palliative Care Consultation ---
Date of Consultation November 24, 2024 Assessment & Plan (1) Palliative care by specialist: Met with patient and his daughter BESSY Escamilla at bedside, pt's son BESSY French joined conversation by phone. Introduced Palliative Medicine and explained our role in advanced care planning, symptom management and navigation through the progression of life limiting disease. Patient and/or family were receptive to palliative services for goals of care discussions. Reviewed we are different from hospice, a home health nurse visiting service. (2) Counseling regarding advanced directives and goals of care: Spent 30 minutes discussing ACP/goals of care with Radhika and Deuce. They shared that the pt has been living independently in private residence prior to admission. Radhika shared that she lives in [place] but visits frequently and durin her past several visits she has noticed a rapid progression of pt's dementia. She asked at what time is it appropriate to consider hospice care. Spent a substantial amount of time discussing the progressively debilitating nature of dementia. Explained that dementia is incurable and irreversible, and can include progressive/worsening memory loss, confusion, language difficulties/lack of comprehension skills/loss of verbal skills eventually, mood changes, impaired judgment, trouble with motor skills/coordination/balance issues, visual and spatial problems, hallucinations, and personality changes. The rate of progression in mixed dementia can vary widely from person to person. Factors such as the types of dementia involved, overall health, and genetics can influence the speed of progression. Some individuals experience a more gradual decline, while others may progress more rapidly through the stages. We discussed and differentiated dementia from delirium and helped family understand that they can co-exist. I reviewed Dementia is a terminal illness. Aggressive medical treatment for patients with advanced dementia is often inappropriate for medical reasons, has a low rate of success, and can have negative outcomes that hasten functional decline and . ([place] [employer] Ethics Committee and Clinical Practice and Models of Care Committee. J Am Geriatr Soc. 2014 Aug;62(8):1590-3 and Jonathan SL, Eliane JM, Gonzalez SC, Andrés V. A national study of the location of for older persons with dementia. J Am Geriatr Soc 2005; 53(2):299-305.). Helped them understand differences between dementia and delirium. Discussed typical progression of dementia and how it may be staged. Stage 1: Normal Functioning: In the early stage, individuals show no signs of dementia, and their cognitive function is normal Stage 2: Very Mild Cognitive Decline: Minor memory lapses and forgetfulness may occur but are often attributed to normal aging Stage 3: Mild Cognitive Decline: Early signs of dementia become more noticeable, such as memory problems and difficulty finding words Stage 4: Moderate Cognitive Decline: Memory loss becomes more pronounced, and individuals may struggle with tasks like managing finances and planning Stage 5: Moderately Severe Cognitive Decline: Daily functioning becomes challenging, and individuals may require assistance with tasks like dressing and bathing Stage 6: Severe Cognitive Decline: In this stage, individuals need substantial help with daily activities, and communication becomes increasingly difficult Stage 7: Very Severe Cognitive Decline: In the final stage, individuals may lose the ability to communicate, walk, and perform basic tasks. They require [id number] care. Older adults with dementia frequently receive acute care in their last year of life although Hospice care was more common for home/[facility] residents. Overall time in hospice remains short due to the underutilization of the hospice benefit for terminal dementia (Cecelia MM, Reena JM, Castellon KM, Jules DE, Jaiden PY. Dementia Care in the Last Year of Life: Experiences in a Community Practice and in Long-Term Facilities. J Palliat Care. 2022;38(2):135-142. doi:10.1177/41198432419890029) Home Hospice is a valuable option for terminal dementia who desire to have peaceful EOL at home. Home hospice care for advanced dementia can improve symptom management and caregiver satisfaction, while decreasing caregiver burden, preventing hospitalizations and discontinuing unnecessary medication (Elle SA, Nam R, Yue G, et al. Home hospice for older people with advanced dementia: a airline transport pilot project [published correction appears in Isr J Health Policy Res. 2019 Mar 28;8(1):56]. Isr J Health Policy Res. 2019;8(1):42. Published 2018January 31. doi:10.1186/n03480-194-9395-t). Radhika shared that, given this description of stages of dementia, she believes him to be at stage 5 or 6. Tyrell agreed. Radhika shared that she believes that hospice may be appropriate at this time, however they have pt scheduled for discharge to [facility] for Rehab on Thursday. Family is adamant about not delaying discharge. Also discussed engaging palliative foundation funded Conscious Dying Coaching with Rev Khadijah Hess. I reviewed that Rev Hess offers assistance on non clinical issues, supporting patients as they consider, navigate and become clear on what is most important for their end of life. Deshawn helps patients align how they are currently living with the vision they see for yourself at the end, then identify and set goals, along with action steps for yourself to fulfill that vision. The focus is on the 5 domains of life: Spiritual, emotional, physical, mental, and practical. Kandice would like this engagement with Rev Hess and I have provided pt with Rev Hess's contact information. Patient and family asked that I share her name and phone with Rev Hess to contact, as it is sometimes hard for pt to make the call, fearing rejection. I reviewed that End of life coaching and planning begins with 10 structured sessions we like to call, the best three months. Based on 10 total meetings over a 3-4 month period. Average meeting time 60-90 minutes. 2 meetings per domain. Over a three month period, there is support for the family and patient to identify their vision, current reality and steps to be taken to implement life fulfillment and care wishes in the spiritual, emotional, mental, physical and practical domains of life. This service includes: Best Three Months End-of-Life Care Coaching and Planning with Family, Patient and Co-coordination with Medical/Hospice Care Providers. They are agreeable to this service, and shared that they believe both pt and his would benefit. Contact information shared with Radhika. (3) Encounter for hospice care discussion: Radhika and Tyrell had questions about transition to comfort directed care. They expressed that the pt will have a bed at [facility] for rehab on Thursday and they do not want to delay discharge for hospice evaluation. They shared that [facility] is their first choice of facility because the pt's resides there as well. They shared concern that if pt does not go there for rehab he may lose the bed that is allotted to him. Radhika asked if pt can continue to have PT/OT after he is enrolled in hospice. We discussed that transition to comfort directed care/hospice happens after all life promoting therapies are stopped. Discussed hospice benefit: an interdisciplinary program offered by nurses, nurses aides, social workers, chaplains and a biomedical engineering professor for patients with a terminal condition and a life expectancy of less than 6 months. This is covered by Medicare at 100%/no out of pocket expense to patient and all meds/supplies needed by patient for the reason they are on hospice are paid for/covered by hospice. The goal is assure quality of life of the patient in their home setting (home, care home, inpatient hospice setting) by providing symptoms management, psychosocial and spiritual support. However, they cannot offer 24 hours care and if the family is unable to provide that care, they will have to consider personal care with out of pocket cost vs. care home placement. We discussed the goals of hospice as a patient service and the goals of care; we discussed EOL trajectories and transitions wendy the emotional impact of realizing mortality as a concrete reality from prior abstract considerations. Pt was reassured that no matter where they are along this trajectory, they are not alone - their medical team will remain by their side through their journey. Discussed the pros/cons of accepting help when especially weakened and distressed by pain-which would also help provide relief/decrease caregiver burden/strain. Plan Goals of care are clearly established for continuation of current level of care through discharge to [facility] for IPR to optimize strength and functional independence and then transition to Hospice at [facility]. Thank you for including Palliative Care in the management of this patient. Please call with any questions or concerns regarding this con sultation. History of Present Illness Reason for Consultation: goals of care Requesting Physician: Karl Valles MD Attending Physician: Karl Valles MD History of Present Illness 84 M w/ hx of dementia, hx of CVA, hx of PE, CKD stage 3, hx of prostate and lung ca (treated surgically), pAfib who presents after found on the floor by his son/caregiver. Pt was found in bathroom with diarrhea and likely vomiting. Pt's had recent hospitalization for Norovirus. Pt has been living independently with progressive dementia. Allergies Allergy/AdvReac Type Severity Reaction Status Date / Time oxycodone AdvReac Severe became Verified 10/12/24 20:52 apneic and bradycardic Home Medications Medication Instructions Recorded Confirmed Type citalopram 20 mg tablet 20 mg PO QAM 08/31/18 11/19/24 History pantoprazole 40 mg tablet,delayed 40 mg PO QAM 08/31/18 11/19/24 History release carvedilol 6.25 mg tablet 6.25 mg PO QPM 03/09/20 11/19/24 History gabapentin 100 mg capsule 100 mg PO AMPM 03/09/20 11/19/24 History aspirin 81 mg tablet,delayed 81 mg PO QPM 07/04/20 11/19/24 History release albuterol sulfate 90 mcg/actuation 2 puff inhalation Q6 PRN Shortness 07/07/20 11/19/24 History aerosol inhaler Of Breath Or Wheezing atorvastatin 40 mg tablet 40 mg PO QPM 10/04/20 11/19/24 History apixaban 5 mg tablet (Eliquis) 5 mg PO AMHS 10/12/24 11/19/24 History magnesium oxide 400 mg PO QPM 10/12/24 11/19/24 History meclizine 12.5 mg tablet 12.5 mg PO AMPM 10/12/24 11/19/24 History multivitamin with minerals 1 cap PO QAM 10/12/24 11/19/24 History buspirone 5 mg tablet 5 mg PO AMPM 11/19/24 11/19/24 History meclizine 12.5 mg tablet 12.5 mg PO .IN AFTERNOON PRN 11/19/24 11/19/24 History Dizziness Patient History Medical History On anticoagulant therapy Pulmonary embolism hospitalized 03/12/2020-03/15/2020 [facility] w/ BL PE; unk etiology; on coumadin Degenerative disc disease Osteoarthritis GERD (gastroesophageal reflux disease) Cancer LUNG AND PROSTATE CANCER, both treated surgically Asthma Using albuterol inhaler TID now since PEs. Previously wasn't using inhaler at all. Surgical History History of cataract surgery LEFT/RIGHT History of carpal tunnel release RT X 2 LEFT X 3 History of laminectomy LUMBAR History of prostatectomy History of esophagogastroduodenoscopy (EGD) History of colonoscopy History of herniorrhaphy RT INGUINAL History of lobectomy of lung RT MIDDLE LOBE History of tooth extraction History of tonsillectomy History of adenoidectomy Family History Father FHx: prostate cancer Grandfather (Paternal) FHx: prostate cancer Social History Smoking Status: Former smoker Tobacco Type: Cigars Second Hand Exposure: No; Do You Dip or Chew Tobacco: No; Hx Alcohol Use: No Hx Substance Use: No Preferred Language: Swedish Communication Ability: Effective Motor Vehicle Inspector Required: No Beliefs That Will Affect Care: None marital status: Current Living Situation: Spouse Current Living Situation Comment: daughter is living with him currently Feels Safe at Home: Yes Safety Concerns: Feels Safe At This Time Assistive Devices: Walker Review of Systems Review of Systems: All systems reviewed & are unremarkable except as noted in HPI & below Physical Exam Constitutional: well developed, + altered mental status, cooperative and comfortable; no acute distress ENMT: external ear and nose normal, oropharynx normal Neck: trachea midline, no thyromegaly Respiratory: normal respiratory effort, lungs clear to auscultation Cardiovascular: Rate/Rhythm: regular rate and regular rhythm Extremities: + edema Gastrointestinal (Abdomen): normal bowel sounds, soft, nontender, no hepatosplenomegaly Musculoskeletal: Head/Neck/Chest: normocephalic and head atraumatic Extremities: extremities normal to inspection Skin: no rashes, warm and dry Neurologic: moves all extremities, awake and + confused AAOx2, pleasantly communicative and confused Results & Data Vital Signs (Past 12 Hours) Vital Signs Temp Pulse Pulse Pulse Resp BP Pulse Ox 11/24/24 11:34 36.4 C L 82 18 152/86 H 93 11/24/24 07:17 11/24/24 07:03 36.6 C 81 18 159/95 H 94 11/24/24 07:00 70 11/24/24 03:45 36.7 C 77 20 156/82 H 94 O2 Del Method 11/24/24 11:34 Room Air 11/24/24 07:17 Room Air 11/24/24 07:03 Room Air 11/24/24 07:00 11/24/24 03:45 Room Air PG Care Time/CCT Total # of Minutes Spent Total Time Spent with Patient: Total time spent is greater than 50% in coordination of care (as documented) at patient's floor/unit and/or counseling patient: Advanced Care Planning 55438 Advanced Care Planning 30 [place] [address] IN/OBS CONSULT LVL 3,45M Patient Type New History Problem Focused Exam Problem Focused Medical Decision Making Low Complexity Diagnoses Palliative care by specialist Z51.5 Counseling regarding advanced directives and goals of care Z71.89 Encounter for hospice care discussion Z71.89 Additional Codes Advanced Care Planning - 77492 Advanced Care Planning 30 Min: 21405 Advanced Care Planning 30 Min ([id number])
[2024-11-24 14:37] LABS: Appearance Urine Clear (Clear); Bilirubin Urine Negative (Negative); Blood Urine Negative (Negative); Color Urine Yellow; Glucose Urine UA Negative (Negative); Ketones Urine Negative (Negative); Leukocyte Esterase Urine Negative (Negative); Nitrite Urine Negative (Negative); Protein Urine Negative (Negative); Specific Gravity Urine 1.013 (1.000-1.030); Urobilinogen Urine Negative (Negative); pH Urine 6.5 (4.5-7.5)
[2024-11-24] MEDS: MELATONIN 3 MG TAB PO PRN (23:22)
[2024-11-25 06:31] LABS: Basophils # (auto) 0.02 K/uL (0.00-0.20); Basophils % (auto) 0.3 %; Eosinophils # (auto) 0.13 K/uL (0.00-0.50); Eosinophils % (auto) 2.1 %; Hematocrit (blood only) 32.4 % (42.0-52.0); Hemoglobin 10.4 g/dl (14.0-18.0); Immature Granulocytes # (auto) 0.03 K/uL (0.01-0.20); Immature Granulocytes % (auto) 0.5 %; Lymphocytes # (auto) 2.76 K/uL (1.20-3.40); Lymphocytes % (auto) 44.4 %; Mean Corpuscular Hemoglobin 25.7 pg (25.0-34.0); Mean Corpuscular Hgb Conc 32.1 g/dL (32.0-36.0); Mean Platelet Volume 9.3 fL (9.4-12.4); Monocytes # (auto) 0.68 K/uL (0.11-0.59); Monocytes % (auto) 10.9 %; Neutrophils % (auto) 41.8 %; Platelet Count 231 K/uL (130-400); RDW Coefficient of Variation 15.9 % (11.5-14.5); RDW Standard Deviation 46.6 fL (36.4-46.3); Red Blood Count 4.05 M/uL (4.70-6.10); White Blood Count 6.22 K/ul (4.8-10.8)
[2024-11-25 06:46] LABS: BUN Creatinine Ratio 8.1 (10-20); Calcium 8.3 mg/dl (8.6-10.3); Creatinine Clr Calc Pharmacy 38.6 ml/min; Potassium 3.8 mmol/L (3.5-5.1)
--- NOTE | 2024-11-25 13:22 | Hospitalist Progress Note ---
Date of Service November 25, 2024 Assessment & Plan (1) Fall: (2) Diarrhea: (3) Norovirus: (4) Anemia: Plan: Acute gastroenteritis Norovirus Patient was found on the bathroom floor; had nausea, diarrhea. visited at [facility], she is positive for Norovirus and currently hospitalized here CT abd pelvis obtained in ED: + hiatal hernia, enteritis/ diarrhea CT head: negative Stool panel positive for norovirus Diarrhea resolved; started on diet. Anemia possible Acute Blood Loss (+) FOBT Hemoglobin trended down during admission--> 9, remained stable on protonix Eliquis and aspirin on hold Previous attending discussed with patient's daughter; does not want EGD or colonoscopy. Plan to continue on Protonix Follow-up CBC as outpatient; resume anticoagulation if hemoglobin is stable. patient's family would like to transition patient to palliative care given progressive Dementia Mild KM on CKD 3 Creatinine POC 1.5, then repeat w/ labs 1.35 creatinine back to baseline Chronic conditions Hx of CVA on aspirin, Lipitor -- Hold aspirin in light of anemia Hx of pulmonary embolism on Eliquis, hold for now given fall, will start dvt prophylaxis while inpatient. Paroxysmal atrial fibrillation: admit to tele - Hold Eliquis for above Hx of malignancy Reported history of lung and prostate cancer, treated surgically Mixed Alzheimer's and vascular dementia Monitor for delirium DVT Px heparin Disposition Awaiting rehab Disposition; monitor inpatient for recurrence of GI bleed. Possible discharge in next few days after placement is available Please note the above document was generated using voice recognition software. It may contain grammatical, syntax or spelling errors. Any formal questions or concerns about the content, text or information contained within the body of this dictation should be directly addressed to the provider for clarification Admission and Anticipated Discharge Date Admission Date: November 19, 2024 Subjective Patient seen and examined at bedside. Comfortable; not in distress. No significant overnight events Patient resting comfortably Review of Systems Review of Systems: All systems reviewed & are unremarkable except as noted in Subjective Physical Exam Physical Exam: General- Comfortable; not in any distress Eyes- anicteric Neck- no JVD Lungs- clear breath sounds bilaterally, no rales/wheezes Heart- normal rate, regular rhythm; no murmurs Abdomen- normal bowel sounds, nondistended, soft, nontender Extremities- no pretibial edema, no calf tenderness Neuro- asleep Skin- warm & dry Results & Data Results & Data Vital Signs (Past 12 Hours) Vital Signs Temp Pulse Pulse Resp BP BP Pulse Ox 11/25/24 10:54 36.9 C 71 18 129/73 94 11/25/24 08:37 83 11/25/24 07:38 11/25/24 07:30 36.5 C 83 18 134/75 91 11/25/24 03:06 36.6 C 84 16 145/82 H 95 O2 Del Method 11/25/24 10:54 Room Air 11/25/24 08:37 11/25/24 07:38 Room Air 11/25/24 07:30 Room Air 11/25/24 03:06 Room Air
--- NOTE | 2024-11-26 15:37 | Hospitalist Progress Note ---
Date of Service November 26, 2024 Assessment & Plan (1) Fall: (2) Diarrhea: (3) Norovirus: (4) Anemia: Plan: Acute gastroenteritis Norovirus Patient was found on the bathroom floor; had nausea, diarrhea. CT abd pelvis obtained in ED: + hiatal hernia, enteritis/ diarrhea CT head: negative Stool panel positive for norovirus Diarrhea resolved; started on diet. Anemia possible Acute Blood Loss (+) FOBT Hemoglobin trended down during admission--> 9, remained stable on protonix Eliquis and aspirin on hold Previous attending discussed with patient's daughter; does not want EGD or colonoscopy. Plan to continue on Protonix Follow-up CBC as outpatient; resume anticoagulation if hemoglobin is stable. patient's family would like to transition patient to palliative care given progressive Dementia Mild KM on CKD 3 Creatinine POC 1.5, then repeat w/ labs 1.35 creatinine back to baseline Chronic conditions Hx of CVA on aspirin, Lipitor -- Hold aspirin in light of anemia Hx of pulmonary embolism on Eliquis, hold for now given fall, will start dvt prophylaxis while inpatient. Paroxysmal atrial fibrillation: admit to tele - Hold Eliquis for above Hx of malignancy Reported history of lung and prostate cancer, treated surgically Mixed Alzheimer's and vascular dementia Monitor for delirium DVT Px heparin Disposition Patient denies SNF; peer to peer offered. Awaiting for callback Please note the above document was generated using voice recognition software. It may contain grammatical, syntax or spelling errors. Any formal questions or concerns about the content, text or information contained within the body of this dictation should be directly addressed to the provider for clarification Admission and Anticipated Discharge Date Admission Date: November 19, 2024 Subjective Patient seen and examined at bedside. He is comfortable; not in distress No complaint of fever, chills, chest pain, shortness of breath or abdominal pain No significant events overnight Review of Systems Review of Systems: All systems reviewed & are unremarkable except as noted in Subjective Physical Exam Physical Exam: General- Comfortable; not in any distress Eyes- anicteric Neck- no JVD Lungs- clear breath sounds bilaterally, no rales/wheezes Heart- normal rate, regular rhythm; no murmurs Abdomen- normal bowel sounds, nondistended, soft, nontender Extremities- no pretibial edema, no calf tenderness Neuro- asleep Skin- warm & dry Results & Data Results & Data Vital Signs (Past 12 Hours) Vital Signs Temp Pulse Pulse Resp BP BP Pulse Ox 11/26/24 14:39 36.8 C 82 18 135/79 94 11/26/24 11:22 36.7 C 76 20 145/77 H 94 11/26/24 08:27 77 11/26/24 07:39 36.6 C 74 18 138/84 93 11/26/24 07:24 11/26/24 04:21 36.7 C 76 18 134/72 93 O2 Del Method 11/26/24 14:39 Room Air 11/26/24 11:22 Room Air 11/26/24 08:27 11/26/24 07:39 Room Air 11/26/24 07:24 Room Air 11/26/24 04:21 Room Air
[2024-11-27] MEDS: MECLIZINE HCL 25 MG TAB PO SCH (08:46)
--- NOTE | 2024-11-27 12:05 | Hospitalist Progress Note ---
Date of Service November 27, 2024 Assessment & Plan (1) Fall: (2) Diarrhea: (3) Norovirus: (4) Anemia: Plan: Acute gastroenteritis Norovirus Patient was found on the bathroom floor; had nausea, diarrhea. CT abd pelvis obtained in ED: + hiatal hernia, enteritis/ diarrhea CT head: negative Stool panel positive for norovirus Diarrhea resolved; started on diet. Anemia possible Acute Blood Loss (+) FOBT Hemoglobin trended down during admission--> 9, remained stable on protonix Will resume Eliquis 5 mg twice a day from November 27, 2024 Previous attending discussed with patient's daughter; does not want EGD or colonoscopy. 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 If he is not able to go to rehab; plan is to discharge home with home PT OT and eventual transition to hospice care depending on how he does Please note the above document was generated using voice recognition software. It may contain grammatical, syntax or spelling errors. Any formal questions or concerns about the content, text or information contained within the body of this dictation should be directly addressed to the provider for clarification Admission and Anticipated Discharge Date Admission Date: November 19, 2024 Subjective Patient seen and examined at bedside; he is comfortable; not in distress Vital signs are stable No significant events overnight Review of Systems Review of Systems: All systems reviewed & are unremarkable except as noted in Subjective Physical Exam Physical Exam: General- Comfortable; not in any distress Eyes- anicteric Neck- no JVD Lungs- clear breath sounds bilaterally, no rales/wheezes Heart- normal rate, regular rhythm; no murmurs Abdomen- normal bowel sounds, nondistended, soft, nontender Extremities- no pretibial edema, no calf tenderness Neuro- asleep Skin- warm & dry Results & Data Results & Data Vital Signs (Past 12 Hours) Vital Signs Temp Pulse Pulse Resp BP BP Pulse Ox 11/27/24 11:21 36.6 C 79 18 117/72 94 11/27/24 07:39 36.3 C L 79 18 155/89 H 96 11/27/24 07:05 68 11/27/24 03:21 36.5 C 70 16 118/71 96 O2 Del Method 11/27/24 11:21 Room Air 11/27/24 07:39 Room Air 11/27/24 07:05 11/27/24 03:21 Room Air
[2024-11-27] MEDS: ATORVASTATIN 40 MG TAB PO SCH (19:53)
[2024-11-27] MEDS: APIXABAN 5 MG TABLET PO SCH (19:53)
[2024-11-27] MEDS: busPIRone 5 MG TAB PO SCH (19:53)
[2024-11-28 07:27] VITALS: RESP 18; O2SAT 96
[2024-11-28 08:16] LABS: Basophils # (auto) 0.03 K/uL (0.00-0.20); Basophils % (auto) 0.5 %; Eosinophils # (auto) 0.15 K/uL (0.00-0.50); Eosinophils % (auto) 2.3 %; Hematocrit (blood only) 33.5 % (42.0-52.0); Hemoglobin 10.7 g/dl (14.0-18.0); Immature Granulocytes # (auto) 0.05 K/uL (0.01-0.20); Immature Granulocytes % (auto) 0.8 %; Lymphocytes # (auto) 2.32 K/uL (1.20-3.40); Lymphocytes % (auto) 35.1 %; Mean Corpuscular Hgb Conc 31.9 g/dL (32.0-36.0); Mean Corpuscular Volume 81.3 fL (80.0-100.0); Mean Platelet Volume 9.2 fL (9.4-12.4); Monocytes # (auto) 0.67 K/uL (0.11-0.59); Monocytes % (auto) 10.1 %; Neutrophils # (auto) 3.39 K/uL (1.40-6.50); Neutrophils % (auto) 51.2 %; Platelet Count 252 K/uL (130-400); RDW Coefficient of Variation 16.1 % (11.5-14.5); RDW Standard Deviation 47.2 fL (36.4-46.3); Red Blood Count 4.12 M/uL (4.70-6.10); White Blood Count 6.61 K/ul (4.8-10.8)
[2024-11-28 11:05] VITALS: PULSE 77; TEMP 97.9
[2024-11-28 13:20] VITALS: BP 138/75
--- NOTE | 2024-11-28 14:54 | Discharge Summary ---
Date of Service November 28, 2024 Admission HPI Per Admitting Provider 84 M w/ hx of dementia, hx of CVA, hx of PE, CKD stage 3, hx of prostate and lung ca (treated surgically), pAfib who presents after found on the floor by his son/caregiver. Pt was found in bathroom with diarrhea and likely vomiting. Pt's son is present at the bedside in the ED and reports his mom is staying [facility] but currently is hospitalized here and found to be positive for Norovirus. Pt's son provides hx as pt has dementia. Discussed w/ ED physician - CT abd pelvis obtained and unremarkable, positive for hiatal hernia and enteritis/ diarrhea. Will obtain stool sample for testing. received IVF, will continue. Pt otherwise denies fever, chills, chest pain, shortness of breath, abd pain at this time. Admission Exam Per Admitting Provider Constitutional: WD/WN, vitals as above Eyes: PERRL, conjunctivae normal, anicteric sclerae ENMT: external ear and nose normal, oropharynx normal Neck: normal visual inspection Respiratory: normal respiratory effort, lungs clear to auscultation Cardiovascular: RRR, no murmur, no edema Chest (Breasts): Chest: normal inspection of chest Gastrointestinal (Abdomen): normal bowel sounds, soft, nontender, no hepatosplenomegaly Musculoskeletal: Head/Neck/Chest: normocephalic Skin: no rashes, warm and dry Neurologic: PERRL, EOMI, accommodation nl, no face palsy, no dysarthria Psychiatric: A+Ox3, euthymic affect Principal Diagnosis Acute gastroenteritis Norovirus Anemia possible Acute Blood Loss Discharge Exam General- Comfortable; not in any distress Eyes- anicteric Neck- no JVD Lungs- clear breath sounds bilaterally, no rales/wheezes Heart- normal rate, regular rhythm; no murmurs Abdomen- normal bowel sounds, nondistended, soft, nontender Extremities- no pretibial edema, no calf tenderness Neuro- asleep Skin- warm & dry Discharge Data Allergies Allergy/AdvReac Type Severity Reaction Status Date / Time oxycodone AdvReac Severe became Verified 10/12/24 20:52 apneic and bradycardic Consultations 11/19/24 15:22 ED Decision to Admit Stat 11/23/24 13:27 Consult Palliative Care Routine Ordered Studies 11/19/24 14:07 CT abd pelvis IV con only Stat 11/19/24 14:08 CT head/brain wo con Stat Hospital Course (1) Fall: (2) Diarrhea: (3) Norovirus: (4) Anemia: Acute gastroenteritis Norovirus Patient was found on the bathroom floor; had nausea, diarrhea. CT abd pelvis obtained in ED: + hiatal hernia, enteritis/ diarrhea CT head: negative Stool panel positive for norovirus Diarrhea resolved; started on diet. Was tolerating diet well at discharge. Anemia possible Acute Blood Loss (+) FOBT Hemoglobin trended down during admission--> 9, remained stable Patient was treated with Protonix. Family did not want invasive procedure including endoscopy/colonoscopy. Hemoglobin remained stable. Discharged on Protonix at discharge. 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 He was discharged home with home health. Please note the above document was generated using voice recognition software. It may contain grammatical, syntax or spelling errors. Any formal questions or concerns about the content, text or information contained within the body of this dictation should be directly addressed to the provider for clarification Total Time Total Time Spent Total Time Spent (In Minutes): 45 Total Time Includes: Examination of the Patient, Discharge Planning, Medication Reconciliation, Communication With Other Providers and Other Discharge Plan Discharge Items Patient Disposition: Home - Home Health Services Reason For Visit: DIARRHEA,FALL Discharge Diagnosis: Acute gastroenteritis Norovirus Anemia possible Acute Blood Loss Activity: Resume your previous activity Non-emergency contact: Primary Care Provider Call non-emergency contact if: you have any medication questions and your symptoms worsen Follow-up/Referrals: Ranulfo Schumacher, [Primary Care Provider] - (The office will call you for a follow up appointment.) Diet: Regular Addtl Attending Provider Instructions: You were admitted to the hospital due to norovirus infection and diarrhea. You are treated with hydration during the hospitalization. There was concern of a GI bleed during the hospitalization. Your blood levels were monitored during the hospitalization and it has been stable since last several days. You are prescribed Protonix to be taken twice a day. The aspirin has been on hold. An appointment with your primary care doctor will be set up for sometime next week to have blood work done. If your hemoglobin level stable; aspirin can be restarted back. Pending Studies at Discharge: No Stand-Alone Forms: My [facility], Smoking Cessation Medications and DC Order Prescriptions: New pantoprazole 40 mg Tablet,Delayed Release (Dr/Ec) 40 mg PO BID 30 Days Qty: 60 0RF Continued carvedilol 6.25 mg Tablet 6.25 mg PO QPM gabapentin 100 mg Capsule 100 mg PO AMPM albuterol sulfate 90 mcg/actuation HFA aerosol inhaler 2 puff INHALATION Q6 PRN (Reason: Shortness Of Breath Or Wheezing) atorvastatin 40 mg Tablet 40 mg PO QPM citalopram 20 mg tablet 20 mg PO QAM meclizine 12.5 mg tablet 12.5 mg PO AMPM Eliquis 5 mg tablet 5 mg PO AMHS multivitamin with minerals Capsule 1 cap PO QAM magnesium oxide 400 mg magnesium Tablet 400 mg PO QPM buspirone 5 mg tablet 5 mg PO TID Rx Instructions: ORDERED TID...TAKES BID meclizine 12.5 mg tablet 12.5 mg PO .IN AFTERNOON PRN (Reason: Dizziness) Held aspirin 81 mg Tablet,Delayed Release (Dr/Ec) 81 mg PO QPM Hold Instructions: Resume on 12/05/24. Discontinued pantoprazole 40 mg tablet,delayed release (DR/EC) 40 mg PO QAM Discharge Orders: Discharge Order (Routine); Ordered 11/28/24 Ordered By: Karl Valles Admission Data Admit Date/Time: 11/19/24 16:40 Attending Provider: Karl Valles Admit Provider: Bryant Butterfield Primary Care Provider: Ranulfo Schumacher Other Providers: Bryant Butterfield; [facility]; Rita Eduardo Other Interventions: Discharge Summary Assessment (RN) Last Done: 11/28/24 13:19
== END 2024-11-28 13:51 | disposition home health service (06) | DRG 392 ==
LOC: ED 13:35 → SUATTDRO 16:40 → EDINP 16:40 → 2N 18:22 → EDINP 18:22 → 2N 11-20 15:29

== ENCOUNTER 2024-12-16 21:41 | Inpatient (IN) ==
[2024-12-16] MEDS: fentaNYL citrate PF 100 MCG/2 ML VIAL IV STA ×3 (22:04→23:07)
--- NOTE | 2024-12-16 22:04 | Emergency Department Note ---
Impression & Plan Fall, Dementia, Closed hip fracture ED Provider Note Provider: Marc Mendoza MD CHIEF COMPLAINT: Fall, left hip pain HISTORY OF PRESENT ILLNESS: Patient is a 84-year-old gentleman Fortune history including dementia, atrial fibrillation on Eliquis, TIA, CKD, and cancer presenting [facility] today from [facility] for [facility]. Patient evidently fell struck his head and injured his left hip. Significant pain to the hip. Denies a prior history of injury here. Not the best recollection by the patient of how the fall happened. No reported LOC. Patient denies of the pain of his head, neck, chest, abdomen, or other extremities to be on the left hip. Denies pain in the left knee or lower foot. Denies numbness or ting in the left foot. PAST MEDICAL HISTORY: As noted above MEDICATIONS: Reviewed medications from facility SOCIAL HISTORY: , residing at [facility] PHYSICAL EXAM: GENERAL: alert and oriented to person but not recent events or time in no acute distress on stretcher Head: normocephalic and atraumatic EYES: No injection, discharge or icterus. PERRL, EOMI. NECK: Trachea midline. Supple no midline cervical tenderness ENT: Mucous membranes pink and moist. LUNGS: Airway patent. No retractions. Breath sounds clear with good air entry bilaterally. HEART: Regular rate and rhythm. No chest wall tenderness ABDOMEN: Soft and non-tender, without guarding or rebound. Stable pelvis. No flank tenderness. SKIN: Acyanotic, warm, dry, without rashes EXTREMITIES: Without swelling, tenderness or deformity except for significant pain around the left hip with pain with movement. Intact gross sensation and 1+ pulse of the left DP. NEUROLOGICAL: No focal deficits. No aphasia. No facial droop or slurred speech. Normal strength and tone in the extremities. Sensation to gross touch normal. Ambulatory. EK beats per minute. Normal sinus rhythm. Some baseline artifact. Left bundle branch block noted with QTc of 480. No acute ST segment elevation or depression. CONTINUOUS CARDIAC MONITORING: was ordered and showed a heart rate of bpm in GCS 15. Patient's laboratory studies and imaging reviewed. Differential includes Fracture, dislocation, contusion, intra-abdominal, pneumothorax, intrathoracic, intracranial, neurologic, compartment syndrome, rhabdomyolysis, as well as other pathologies. IMPRESSION/MEDICAL DECISION MAKING: Patient awake and alert. Baseline dementia. Significant pain left hip denies other complaints. Given his use of anticoagulation and dementia status however and the report that he struck his head will complete CT of the head as well as cervical spine, chest abdomen pelvis. X-ray of the chest as well as left hip obtained. Doubt significant injury to the left knee or elsewise in the extremities. No evidence of compartment syndrome on exam. No significant wounds noted. Given his allergy profile cautiously given a little bit of fentanyl for pain control. Son later arrives and report the patient has recovered from norovirus. Did not confirm with [facility] received Eliquis and aspirin at 8:08 PM this evening. Updated family and patient with findings of a left femoral neck fracture. Discussed with orthopedics who are agreeable to see the patient in the morning. Given his use of blood thinners will likely unfortunately need to wait more than a day for surgery. Several doses of fentanyl and later some morphine to try to help with his pain. Discussed with the hospitalist team for further care here. DIAGNOSIS: Fall, left hip fracture DISPOSITION: Hospitalist will evaluate Past Med/Surg History Problem List (Updated 12/17/24 @ 00:22 by Marc Mendoza M.D.) Closed hip fracture (Acute) Fall (Acute) Encounter for hospice care discussion Counseling regarding advanced directives and goals of care Palliative care by specialist Anemia Norovirus Dementia (Acute) Acute dehydration (Acute) Nausea vomiting and diarrhea (Acute) Fall (Acute) Gastroenteritis (Acute) Diarrhea Fall Paroxysmal atrial fibrillation Mixed Alzheimer's and vascular dementia Anginal equivalent Dyspnea on minimal exertion Complete left bundle branch block (Acute) Chest pain (Acute) COVID-19 (Acute) Pneumonia involving right lung (Acute) Pneumonia involving right lung Vomiting (Acute) Headache (Acute) Chest pain (Acute) Acute ischemic stroke Acute confusion (Acute) History of CVA (cerebrovascular accident) (Acute) Middle cerebral artery stenosis (Acute) Pre-diabetes Aneurysmal dilatation Weakness (Acute) History of pulmonary embolism Supratherapeutic INR (Acute) Acute cerebrovascular accident (Acute) CKD (chronic kidney disease) stage 3, GFR 30-59 ml/min (Acute) Status post reverse arthroplasty of left shoulder (Acute ~05/2020) HTN (hypertension) Migraine (Chronic) HX OF DVT prophylaxis Medical History On anticoagulant therapy Pulmonary embolism hospitalized 03/12/2020-03/15/2020 [facility] w/ BL PE; unk etiology; on coumadin Degenerative disc disease Osteoarthritis GERD (gastroesophageal reflux disease) Cancer LUNG AND PROSTATE CANCER, both treated surgically Asthma Using albuterol inhaler TID now since PEs. Previously wasn't using inhaler at all. Surgical History History of cataract surgery LEFT/RIGHT History of carpal tunnel release RT X 2 LEFT X 3 History of laminectomy LUMBAR History of prostatectomy History of esophagogastroduodenoscopy (EGD) History of colonoscopy History of herniorrhaphy RT INGUINAL History of lobectomy of lung RT MIDDLE LOBE History of tooth extraction History of tonsillectomy History of adenoidectomy Family History Father FHx: prostate cancer Grandfather (Paternal) FHx: prostate cancer Social History Smoking Status: Never smoker Tobacco Type: Cigars Second Hand Exposure: No; Do You Dip or Chew Tobacco: No; Hx Alcohol Use: No Hx Substance Use: No Preferred Language: Estonian Communication Ability: Effective Marketing Assistant Required: No Beliefs That Will Affect Care: None marital status: Current Living Situation: Spouse Current Living Situation Comment: daughter is living with him currently Feels Safe at Home: Yes Assistive Devices: Walker Allergies Allergies Allergy/AdvReac Type Severity Reaction Status Date / Time lactose Allergy Intermediate Gastrointestinal Verified 12/17/24 00:05 Upset oxycodone AdvReac Severe became Verified 12/17/24 00:05 apneic and bradycardic Home Meds Home Medications Medication Instructions Recorded Confirmed citalopram 20 mg tablet 20 mg PO QAM 08/31/18 12/17/24 carvedilol 6.25 mg tablet 6.25 mg PO QAM 03/09/20 12/17/24 gabapentin 100 mg capsule 100 mg PO AMPM 03/09/20 12/17/24 aspirin 81 mg tablet,delayed 81 mg PO QPM 07/04/20 12/17/24 release albuterol sulfate 90 mcg/actuation 2 puff inhalation Q6 PRN Shortness 07/07/20 12/17/24 aerosol inhaler Of Breath Or Wheezing apixaban 5 mg tablet (Eliquis) 5 mg PO AMHS 10/12/24 12/17/24 meclizine 12.5 mg tablet 12.5 mg PO BID PRN Dizziness 10/12/24 12/17/24 buspirone 5 mg tablet 5 mg PO TID 11/19/24 12/17/24 meclizine 12.5 mg tablet 12.5 mg PO BID17 11/19/24 12/17/24 acetaminophen 325 mg tablet 650 mg PO Q6H PRN PAIN/FEVER 12/17/24 12/17/24 (Tylenol) benzonatate 100 mg capsule 100 mg PO Q8H COUGH 12/17/24 12/17/24 fluoride (sodium) 1.1 % dental 1 applic dental BID 12/17/24 12/17/24 cream (PreviDent 5000 Plus) hydrocodone 5 mg-acetaminophen 325 1 tab PO Q6H PRN Pain (Scale Score 12/17/24 12/17/24 mg tablet 5-10) iron,carbonyl 65 mg-vitamin C 125 1 tab PO DAILY 12/17/24 12/17/24 mg tablet,delayed release (Vitron-C) pantoprazole 40 mg tablet,delayed 40 mg PO DAILY 12/17/24 12/17/24 release Results & Data (ED) Vital Signs Vital Signs - 24 hr 12/16/24 21:35 12/16/24 21:35 12/16/24 21:49 Temperature Temperature Source Pulse Rate 83 81 Pulse Rate [Apical] 64 Pulse Strength [Left] Respiratory Rate 26 H 16 Respiratory Effort / Characteristics Non-Labored Respiratory Depth Normal Respiratory Pattern Regular Blood Pressure 162/97 H Blood Pressure [Right Arm] 128/80 Blood Pressure Mean 118 Blood Pressure Mean [Right Arm] 96 Blood Pressure Position [Right Arm] Lying Pulse Oximetry 98 100 Oxygen Delivery Method Room Air Room Air Oxygen Flow Rate Sepsis Recent Fever Within 48 Hours No Sepsis New/Unexplained Change in Mental Status No Sepsis Action Taken by Nursing No Action Required 12/16/24 22:35 12/16/24 23:00 12/16/24 23:00 Temperature Temperature Source Pulse Rate Pulse Rate [Apical] 60 79 52 L Pulse Strength [Left] Respiratory Rate 18 22 20 Respiratory Effort / Characteristics Non-Labored Respiratory Depth Normal Respiratory Pattern Regular Blood Pressure Blood Pressure [Right Arm] 129/82 149/95 H 112/72 Blood Pressure Mean Blood Pressure Mean [Right Arm] 97 113 85 Blood Pressure Position [Right Arm] Lying Pulse Oximetry 99 95 98 Oxygen Delivery Method Room Air Room Air Room Air Oxygen Flow Rate Sepsis Recent Fever Within 48 Hours Sepsis New/Unexplained Change in Mental Status Sepsis Action Taken by Nursing 12/16/24 23:24 12/16/24 23:24 12/17/24 00:00 Temperature 36.7 C 36.8 C Temperature Source Oral Pulse Rate 80 Pulse Rate [Apical] 77 Pulse Strength [Left] Normal Respiratory Rate 24 23 Respiratory Effort / Characteristics Non-Labored Respiratory Depth Normal Respiratory Pattern Blood Pressure 128/86 Blood Pressure [Right Arm] 144/89 H Blood Pressure Mean Blood Pressure Mean [Right Arm] 107 Blood Pressure Position [Right Arm] Pulse Oximetry 100 98 93 Oxygen Delivery Method Room Air Room Air Room Air Oxygen Flow Rate 0 Sepsis Recent Fever Within 48 Hours Sepsis New/Unexplained Change in Mental Status Sepsis Action Taken by Nursing 12/17/24 00:59 12/17/24 01:00 12/17/24 01:00 Temperature 36.7 C 36.7 C Temperature Source Oral Oral Pulse Rate Pulse Rate [Apical] 80 80 80 Pulse Strength [Left] Respiratory Rate 21 21 21 Respiratory Effort / Characteristics Non-Labored Non-Labored Non-Labored Respiratory Depth Normal Normal Normal Respiratory Pattern Blood Pressure Blood Pressure [Right Arm] 129/98 129/98 129/98 Blood Pressure Mean Blood Pressure Mean [Right Arm] 108 108 108 Blood Pressure Position [Right Arm] Pulse Oximetry 97 96 96 Oxygen Delivery Method Room Air Nasal Cannula Nasal Cannula Oxygen Flow Rate 2 2 Sepsis Recent Fever Within 48 Hours Sepsis New/Unexplained Change in Mental Status Sepsis Action Taken by Nursing Laboratory Data 12/16/24 21:50 12/16/24 21:50 Lab Results 12/16/24 12/16/24 Range/Units 21:50 22:03 WBC 7.08 (4.8-10.8) K/ul RBC 4.20 L (4.70-6.10) M/uL Hgb 10.8 L (14.0-18.0) g/dl POC Hgb 11.6 L (14.0-18.0) g/dl Hct 34.2 L (42.0-52.0) % POC Hct 34 L (42-52) % MCV 81.4 (80.0-100.0) fL MCH 25.7 (25.0-34.0) pg MCHC 31.6 L (32.0-36.0) g/dL RDW Std Deviation 46.5 H (36.4-46.3) fL RDW Coeff of Marely 15.8 H (11.5-14.5) % Plt Count 225 (130-400) K/uL MPV 9.2 L (9.4-12.4) fL Immature Gran % (Auto) 0.8 % Neut % (Auto) 50.1 % Lymph % (Auto) 34.6 % Dewitt % (Auto) 12.1 % Eos % (Auto) 2.0 % Baso % (Auto) 0.4 % Neut # (Auto) 3.54 (1.40-6.50) K/uL Lymph # (Auto) 2.45 (1.20-3.40) K/uL Dewitt # (Auto) 0.86 H (0.11-0.59) K/uL Eos # (Auto) 0.14 (0.00-0.50) K/uL Baso # (Auto) 0.03 (0.00-0.20) K/uL Immature Gran # (Auto) 0.06 (0.01-0.20) K/uL PT 11.7 (9.0-12.0) Seconds INR 1.1 (0.9-1.1) APTT 27 (21-31) Seconds PTT Ratio 1.0 POC Sodium 137 (135-144) mmol/L Sodium 136 (136-145) mmol/L POC Potassium 3.6 (3.3-5.0) mmol/L Potassium 3.7 (3.5-5.1) mmol/L POC Chloride 101 (101-112) mmol/L Chloride 104 (98-107) mmol/L Carbon Dioxide 26 (21-32) mmol/L POC Total CO2 23 L (24-31) mmol/L Anion Gap 6 (3-11) POC Anion Gap 18.0 (16-25) mmol/L POC BUN 10 (7-18) mg/dl BUN 11 (6-23) mg/dl Creatinine 1.14 (0.6-1.4) mg/dl POC Creatinine 1.3 (0.6-1.3) mg/dl Est Cr Clr Drug Dosing 42.0 ml/min eGFR 62.63 BUN/Creatinine Ratio 9.6 L (10-20) Glucose 104 H (70-99(Fasting)) mg/dl POC Glucose (other) 99 (70-99) mg/dl Calcium 8.8 (8.6-10.3) mg/dl POC Ioniz Calcium Eliza 1.13 (1.12-1.32) mmol/l Magnesium 1.7 (1.7-2.4) mg/dl Total Bilirubin 0.4 (0.2-1.0) mg/dl AST 18 (13-39) U/L ALT 13 (7-52) U/L Alkaline Phosphatase 79 (34-104) U/L Total Protein 6.3 (6.0-8.3) gm/dl Albumin 3.8 (3.4-5.0) gm/dl Globulin 2.5 (2.5-4.0) gm/dl Albumin/Globulin Ratio 1.5 (0.9-2) Lipase 40 (11-82) U/L Administered Medications Discontinued Medications Fentanyl Citrate (Fentanyl Citrate Pf 100 Mcg/2 Ml Vial) 25 mcg IV NOW STA Stop: 12/16/24 21:57 Last Admin: 12/16/24 22:04 Dose: 25 mcg Documented By: DML Fentanyl Citrate (Fentanyl Citrate Pf 100 Mcg/2 Ml Vial) 25 mcg IV NOW STA Stop: 12/16/24 22:16 Last Admin: 12/16/24 22:28 Dose: 25 mcg Documented By: QGV Fentanyl Citrate (Fentanyl Citrate Pf 100 Mcg/2 Ml Vial) 25 mcg IV NOW STA Stop: 12/16/24 23:01 Last Admin: 12/16/24 23:07 Dose: 25 mcg Documented By: QGV Morphine Sulfate (Morphine Sulfate 4 Mg/Ml 1 Ml Carp\Vial) 4 mg IV NOW STA Stop: 12/16/24 23:54 Last Admin: 12/17/24 00:02 Dose: 4 mg Documented By: CTK Imaging Data Radiologist's Impression: Abdomen/Pelvis CT 12/16/24 21:55 Exam(s): CT ABDOMEN + PELVIS Without Contrast EXAM: CT Abdomen and Pelvis Without Intravenous Contrast CLINICAL HISTORY: Reason for exam: fall. TECHNIQUE: Axial computed tomography images of the abdomen and pelvis without intravenous contrast. CTDI is 36 mGy and DLP is 624 mGy-cm. Automated exposure control was utilized for the study. A dose lowering technique was utilized adhering to the principles of ALARA. COMPARISON: CT chest: 11/19/2024 FINDINGS: Lung bases: Unremarkable. No mass. No consolidation. Mediastinum: There is a moderate hiatal hernia. ABDOMEN: Liver: Unremarkable. Gallbladder and bile ducts: Unremarkable. No calcified stones. No ductal dilation. Pancreas: Unremarkable. No ductal dilation. Spleen: Unremarkable. No splenomegaly. Adrenals: Unremarkable. No mass. Kidneys and ureters: There is a hyperdense right renal cyst. There are additional bilateral renal cysts. No hydronephrosis or obstructing urinary calculi. Stomach and bowel: There are numerous sigmoid colon diverticula. No active diverticular inflammatory process. No free air or abscess. No obstruction. No mucosal thickening. PELVIS: Appendix: No findings to suggest acute appendicitis. Bladder: Unremarkable. No stones. Reproductive: The prostate has been removed. ABDOMEN and PELVIS: Intraperitoneal space: See above. Bones/joints: There is advanced multilevel thoracal lumbar spondylosis. There is partial L4-5 and L5-S1 fusion. There is mild grade 1 anterolisthesis of L3-4. There are vacuum discogenic changes at L1-2 through L3-4. There is advanced T12-L1 degenerative disc disease with a marginal disc osteophyte complex. No acute fracture. No dislocation. Soft tissues: Unremarkable. Vasculature: There are scattered aortic atherosclerotic calcifications.. No abdominal aortic aneurysm. Lymph nodes: Unremarkable. No enlarged lymph nodes. IMPRESSION: 1. No acute findings. 2. Advanced thoracolumbar spondylosis with multilevel discogenic changes and L4-5 and L5-S1 fusion. No acute fracture or dislocation. Electronically signed by: Nikita Curran MD 12/17/24 00:[address] 12/16/24 21:55 Exam(s): CT C SPINE EXAM: CT Cervical Spine Without Intravenous Contrast CLINICAL HISTORY: Reason for exam: fall. TECHNIQUE: Axial computed tomography images of the cervical spine without intravenous contrast. CTDI is 36 mGy and DLP is 624 mGy-cm. Automated exposure control was utilized for the study. A dose lowering technique was utilized adhering to the principles of ALARA. COMPARISON: No relevant prior studies available. FINDINGS: Vertebrae: There is mild grade 1 anterolisthesis at C2-3 secondary to asymmetric left-sided facet arthrosis. There is generalized decreased bony mineralization. There is mild grade 1 anterolisthesis at C7/T1. No acute fracture. Discs/spinal canal/neural foramina: There is asymmetric left-sided foraminal narrowing at C2-3. There is bilateral moderate to severe C3-4, C4-5, C5-6 and C6-7 foraminal stenosis. There is mild to moderate spinal stenosis. There is severe multilevel degenerative disc disease throughout the entire cervical spine. Soft tissues: Unremarkable. IMPRESSION: 1. No acute fracture. 2. Severe multilevel degenerative disc disease throughout the cervical spine. Electronically signed by: Nikita Curran MD 12/17/24 00:[address] 12/16/24 21:55 Exam(s): CT CHEST Without Contrast EXAM: CT Chest Without Intravenous Contrast CLINICAL HISTORY: Reason for exam: fall. TECHNIQUE: Axial computed tomography images of the chest without intravenous contrast. CTDI is 36 mGy and DLP is 624 mGy-cm. Automated exposure control was utilized for the study. A dose lowering technique was utilized adhering to the principles of ALARA. COMPARISON: CTA chest: 03/12/2020 FINDINGS: Lungs: There is mild cystic emphysematous change in the upper lobes. Surgical clips are noted in the right hilum. No consolidation. No pulmonary mass or suspicious nodule. Pleural space: Unremarkable. No pneumothorax. No significant effusion. Heart: There are scattered coronary artery calcifications. There are mild aortic arch calcifications. No cardiomegaly. No significant pericardial effusion. Mediastinum: There is a moderate hiatal hernia. Bones/joints: There is a total left shoulder replacement. There is multilevel thoracic degenerative disc space narrowing. There is a partial right posterior rib resection. No acute fracture. No dislocation. Soft tissues: Unremarkable. Vasculature: See above. Lymph nodes: Unremarkable. No enlarged lymph nodes. Other findings: . IMPRESSION: 1. No acute intrathoracic abnormality. 2. Mild cystic emphysematous change in the upper lobes. 3. Moderate hiatal hernia. Electronically signed by: Nikita Curran MD 12/17/24 00:43 AM Chest X-Ray 12/16/24 21:55 Exam(s): XR CXR 1 VIEW EXAM: XR Chest, 1 View CLINICAL HISTORY: Reason for exam: fall. TECHNIQUE: Frontal view of the chest. COMPARISON: No relevant prior studies available. FINDINGS: Lungs: The lungs are otherwise clear. There is mild linear left basilar atelectasis. Pleural space: Unremarkable. No pneumothorax. Heart: There is a cardiac implant monitor over the left chest. No cardiomegaly. Mediastinum: Unremarkable. Normal mediastinal contour. Bones/joints: There is a total left shoulder replacement. No acute fracture. Upper abdomen: There is mild elevation of right hemidiaphragm. IMPRESSION: Mild linear left basilar atelectasis. Electronically signed by: Nikita Curran MD 12/17/24 00:[address] 12/16/24 21:55 Exam(s): CT HEAD Without Contrast EXAM: CT Head Without Intravenous Contrast CLINICAL HISTORY: Reason for exam: fall, eliquis. TECHNIQUE: Axial computed tomography images of the head/brain without intravenous contrast. CTDI is 36 mGy and DLP is 624 mGy-cm. Automated exposure control was utilized for the study. A dose lowering technique was utilized adhering to the principles of ALARA. COMPARISON: Prior head CT from November 19, 2024. FINDINGS: Brain: Unremarkable. No hemorrhage. Advanced nonspecific white matter changes. No edema. Vertebral basilar dolichoectasia. Ventricles: Moderate ventriculomegaly. Bones/joints: Unremarkable. No acute fracture. Soft tissues: Unremarkable. Sinuses: Unremarkable as visualized. No acute sinusitis. Mastoid air cells: Unremarkable as visualized. No mastoid effusion. IMPRESSION: No evidence of acute intracranial pathology. Electronically signed by: Tory Escalante MD 12/17/24 01:14 AM Hip/Pelvis X-Ray 12/16/24 21:55 Exam(s): XR HIP + PELVIS, 1 view EXAM: XR Left Hip With Pelvis When Performed, 2 or 3 Views CLINICAL HISTORY: Reason for exam: fall. TECHNIQUE: Two or three views of the left hip with pelvis when performed. COMPARISON: No relevant prior studies available. FINDINGS: Bones/joints: There is a left femoral neck fracture. There is lower lumbar degenerative disc disease. Soft tissues: There are surgical clips in the lower pelvis suggestive of prior prostatectomy. IMPRESSION: There is a left femoral neck fracture. Electronically signed by: Nikita Curran MD 12/17/24 00:31 AM Discharge Plan Visit Data Chief Complaint: Trauma Stated Complaint: Fall, L Hip Pain ED Provider: Marc Mendoza Discharge Problem: Fall, Dementia, Closed hip fracture Patient Disposition: Being Evaluated by Hospitalist Forms Stand Alone Forms: My [facility] [address] Prescriptions Prescriptions: No Action carvedilol 6.25 mg Tablet 6.25 mg PO QAM gabapentin 100 mg Capsule 100 mg PO AMPM albuterol sulfate 90 mcg/actuation HFA aerosol inhaler 2 puff INHALATION Q6 PRN (Reason: Shortness Of Breath Or Wheezing) citalopram 20 mg tablet 20 mg PO QAM aspirin 81 mg Tablet,Delayed Release (Dr/Ec) 81 mg PO QPM Hold Instructions: Resume on 12/05/24. acetaminophen [Tylenol] 325 mg Tablet 650 mg PO Q6H MDD 3 GRAMS/24 HOURS PRN (Reason: PAIN/FEVER) hydrocodone-acetaminophen 5-325 mg Tablet 1 tab PO Q6H PRN (Reason: Pain (Scale Score 5-10)) benzonatate 100 mg capsule 100 mg PO Q8H fluoride (sodium) [PreviDent 5000 Plus] 1.1 % Cream 1 applic DENTAL BID Vitron-C 65 mg iron- 125 mg Tablet,Delayed Release (Dr/Ec) 1 tab PO DAILY pantoprazole 40 mg tablet,delayed release (DR/EC) 40 mg PO DAILY meclizine 12.5 mg tablet 12.5 mg PO BID PRN (Reason: Dizziness) Eliquis 5 mg tablet 5 mg PO AMHS buspirone 5 mg tablet 5 mg PO TID meclizine 12.5 mg tablet 12.5 mg PO BID17 Referrals Referrals: Ranulfo Schumacher DO [Outside Practitioners] - Discharge Problem: Fall Qualifiers: Encounter type: initial encounter Qualified Code(s): W19.XXXA - Unspecified fall, initial encounter Closed hip fracture Qualifiers: Encounter type: initial encounter Laterality: left Qualified Code(s): S72.002A - Fracture of unspecified part of neck of left femur, initial encounter for closed fracture
[2024-12-16 22:08] LABS: Basophils # (auto) 0.03 K/uL (0.00-0.20); Basophils % (auto) 0.4 %; Eosinophils # (auto) 0.14 K/uL (0.00-0.50); Hematocrit (blood only) 34.2 % (42.0-52.0); Hemoglobin 10.8 g/dl (14.0-18.0); Immature Granulocytes # (auto) 0.06 K/uL (0.01-0.20); Immature Granulocytes % (auto) 0.8 %; Lymphocytes # (auto) 2.45 K/uL (1.20-3.40); Lymphocytes % (auto) 34.6 %; Mean Corpuscular Hemoglobin 25.7 pg (25.0-34.0); Mean Corpuscular Hgb Conc 31.6 g/dL (32.0-36.0); Mean Corpuscular Volume 81.4 fL (80.0-100.0); Mean Platelet Volume 9.2 fL (9.4-12.4); Monocytes # (auto) 0.86 K/uL (0.11-0.59); Monocytes % (auto) 12.1 %; Neutrophils # (auto) 3.54 K/uL (1.40-6.50); Neutrophils % (auto) 50.1 %; Platelet Count 225 K/uL (130-400); RDW Coefficient of Variation 15.8 % (11.5-14.5); RDW Standard Deviation 46.5 fL (36.4-46.3); White Blood Count 7.08 K/ul (4.8-10.8)
[2024-12-16 22:16] LABS: iSTAT Creatinine 1.3 mg/dl (0.6-1.3); iSTAT Hemoglobin 11.6 g/dl (14.0-18.0); iSTAT Ionized Calcium 1.13 mmol/l (1.12-1.32); iSTAT Potassium 3.6 mmol/L (3.3-5.0)
[2024-12-16 22:25] LABS: Albumin Globulin Ratio 1.5 (0.9-2); Albumin Level 3.8 gm/dl (3.4-5.0); BUN Creatinine Ratio 9.6 (10-20); Bilirubin,Total 0.4 mg/dl (0.2-1.0); Calcium 8.8 mg/dl (8.6-10.3); Globulin 2.5 gm/dl (2.5-4.0); Potassium 3.7 mmol/L (3.5-5.1); Total Protein 6.3 gm/dl (6.0-8.3)
[2024-12-16 22:49] LABS: INR 1.1 (0.9-1.1); Partial Thromboplastin Time 27 Seconds (21-31); Prothrombin Time 11.7 Seconds (9.0-12.0)
[2024-12-17] MEDS: MoRPHine SULFATE 4 MG/ML 1 ML CARP\\VIAL IV STA (00:02)
[2024-12-17] MEDS ORDERED: ACETAMINOPHEN 325 MG TAB PO PRN (00:10)
[2024-12-17] MEDS ORDERED: traMADol HCL 50 MG TABLET PO PRN (00:11)
--- NOTE | 2024-12-17 00:32 | XRay Report ---
Exam(s): XR HIP + PELVIS, 1 view EXAM: XR Left Hip With Pelvis When Performed, 2 or 3 Views CLINICAL HISTORY: Reason for exam: fall. TECHNIQUE: Two or three views of the left hip with pelvis when performed. COMPARISON: No relevant prior studies available. FINDINGS: Bones/joints: There is a left femoral neck fracture. There is lower lumbar degenerative disc disease. Soft tissues: There are surgical clips in the lower pelvis suggestive of prior prostatectomy. IMPRESSION: There is a left femoral neck fracture. Electronically signed by: Nikita Curran MD 12/17/24 00:31 AM
--- NOTE | 2024-12-17 00:33 | XRay Report ---
Exam(s): XR CXR 1 VIEW EXAM: XR Chest, 1 View CLINICAL HISTORY: Reason for exam: fall. TECHNIQUE: Frontal view of the chest. COMPARISON: No relevant prior studies available. FINDINGS: Lungs: The lungs are otherwise clear. There is mild linear left basilar atelectasis. Pleural space: Unremarkable. No pneumothorax. Heart: There is a cardiac implant monitor over the left chest. No cardiomegaly. Mediastinum: Unremarkable. Normal mediastinal contour. Bones/joints: There is a total left shoulder replacement. No acute fracture. Upper abdomen: There is mild elevation of right hemidiaphragm. IMPRESSION: Mild linear left basilar atelectasis. Electronically signed by: Nikita Curran MD 12/17/24 00:32 AM
--- NOTE | 2024-12-17 00:37 | CT Scan Report ---
Exam(s): CT ABDOMEN + PELVIS Without Contrast EXAM: CT Abdomen and Pelvis Without Intravenous Contrast CLINICAL HISTORY: Reason for exam: fall. TECHNIQUE: Axial computed tomography images of the abdomen and pelvis without intravenous contrast. CTDI is 36 mGy and DLP is 624 mGy-cm. Automated exposure control was utilized for the study. A dose lowering technique was utilized adhering to the principles of ALARA. COMPARISON: CT chest: 11/19/2024 FINDINGS: Lung bases: Unremarkable. No mass. No consolidation. Mediastinum: There is a moderate hiatal hernia. ABDOMEN: Liver: Unremarkable. Gallbladder and bile ducts: Unremarkable. No calcified stones. No ductal dilation. Pancreas: Unremarkable. No ductal dilation. Spleen: Unremarkable. No splenomegaly. Adrenals: Unremarkable. No mass. Kidneys and ureters: There is a hyperdense right renal cyst. There are additional bilateral renal cysts. No hydronephrosis or obstructing urinary calculi. Stomach and bowel: There are numerous sigmoid colon diverticula. No active diverticular inflammatory process. No free air or abscess. No obstruction. No mucosal thickening. PELVIS: Appendix: No findings to suggest acute appendicitis. Bladder: Unremarkable. No stones. Reproductive: The prostate has been removed. ABDOMEN and PELVIS: Intraperitoneal space: See above. Bones/joints: There is advanced multilevel thoracal lumbar spondylosis. There is partial L4-5 and L5-S1 fusion. There is mild grade 1 anterolisthesis of L3-4. There are vacuum discogenic changes at L1-2 through L3-4. There is advanced T12-L1 degenerative disc disease with a marginal disc osteophyte complex. No acute fracture. No dislocation. Soft tissues: Unremarkable. Vasculature: There are scattered aortic atherosclerotic calcifications.. No abdominal aortic aneurysm. Lymph nodes: Unremarkable. No enlarged lymph nodes. IMPRESSION: 1. No acute findings. 2. Advanced thoracolumbar spondylosis with multilevel discogenic changes and L4-5 and L5-S1 fusion. No acute fracture or dislocation. Electronically signed by: Nikita Curran MD 12/17/24 00:36 AM
[2024-12-17 00:39] LABS: Magnesium 1.7 mg/dl (1.7-2.4)
--- NOTE | 2024-12-17 00:41 | CT Scan Report ---
Exam(s): CT C SPINE EXAM: CT Cervical Spine Without Intravenous Contrast CLINICAL HISTORY: Reason for exam: fall. TECHNIQUE: Axial computed tomography images of the cervical spine without intravenous contrast. CTDI is 36 mGy and DLP is 624 mGy-cm. Automated exposure control was utilized for the study. A dose lowering technique was utilized adhering to the principles of ALARA. COMPARISON: No relevant prior studies available. FINDINGS: Vertebrae: There is mild grade 1 anterolisthesis at C2-3 secondary to asymmetric left-sided facet arthrosis. There is generalized decreased bony mineralization. There is mild grade 1 anterolisthesis at C7/T1. No acute fracture. Discs/spinal canal/neural foramina: There is asymmetric left-sided foraminal narrowing at C2-3. There is bilateral moderate to severe C3-4, C4-5, C5-6 and C6-7 foraminal stenosis. There is mild to moderate spinal stenosis. There is severe multilevel degenerative disc disease throughout the entire cervical spine. Soft tissues: Unremarkable. IMPRESSION: 1. No acute fracture. 2. Severe multilevel degenerative disc disease throughout the cervical spine. Electronically signed by: Nikita Curran MD 12/17/24 00:40 AM
--- NOTE | 2024-12-17 00:45 | CT Scan Report ---
Exam(s): CT CHEST Without Contrast EXAM: CT Chest Without Intravenous Contrast CLINICAL HISTORY: Reason for exam: fall. TECHNIQUE: Axial computed tomography images of the chest without intravenous contrast. CTDI is 36 mGy and DLP is 624 mGy-cm. Automated exposure control was utilized for the study. A dose lowering technique was utilized adhering to the principles of ALARA. COMPARISON: CTA chest: 03/12/2020 FINDINGS: Lungs: There is mild cystic emphysematous change in the upper lobes. Surgical clips are noted in the right hilum. No consolidation. No pulmonary mass or suspicious nodule. Pleural space: Unremarkable. No pneumothorax. No significant effusion. Heart: There are scattered coronary artery calcifications. There are mild aortic arch calcifications. No cardiomegaly. No significant pericardial effusion. Mediastinum: There is a moderate hiatal hernia. Bones/joints: There is a total left shoulder replacement. There is multilevel thoracic degenerative disc space narrowing. There is a partial right posterior rib resection. No acute fracture. No dislocation. Soft tissues: Unremarkable. Vasculature: See above. Lymph nodes: Unremarkable. No enlarged lymph nodes. Other findings: . IMPRESSION: 1. No acute intrathoracic abnormality. 2. Mild cystic emphysematous change in the upper lobes. 3. Moderate hiatal hernia. Electronically signed by: Nikita Curran MD 12/17/24 00:43 AM
--- NOTE | 2024-12-17 01:15 | CT Scan Report ---
Exam(s): CT HEAD Without Contrast EXAM: CT Head Without Intravenous Contrast CLINICAL HISTORY: Reason for exam: fall, eliquis. TECHNIQUE: Axial computed tomography images of the head/brain without intravenous contrast. CTDI is 36 mGy and DLP is 624 mGy-cm. Automated exposure control was utilized for the study. A dose lowering technique was utilized adhering to the principles of ALARA. COMPARISON: Prior head CT from November 19, 2024. FINDINGS: Brain: Unremarkable. No hemorrhage. Advanced nonspecific white matter changes. No edema. Vertebral basilar dolichoectasia. Ventricles: Moderate ventriculomegaly. Bones/joints: Unremarkable. No acute fracture. Soft tissues: Unremarkable. Sinuses: Unremarkable as visualized. No acute sinusitis. Mastoid air cells: Unremarkable as visualized. No mastoid effusion. IMPRESSION: No evidence of acute intracranial pathology. Electronically signed by: Tory Escalante MD 12/17/24 01:14 AM
--- NOTE | 2024-12-17 01:21 | History & Physical Report ---
Date of Service December 17, 2024 Assessment & Plan (1) Fall: (2) Closed hip fracture: (3) Paroxysmal atrial fibrillation: (4) Mixed Alzheimer's and vascular dementia: Plan Patient is an 84-year-old male with past medical history of Alzheimer's and vascular dementia, CKD stage III, CVA, PE, A-fib on Eliquis, history of lung and prostate cancer s/p surgical removal, and anemia. Patient came into the ED via EMS from [facility] after an unwitnessed fall and was found to have a left femoral neck fracture. he is being admitted for possible surgical management, holding Eliquis and aspirin, orthopedics team to evaluate in the a.m., PT/OT eval's ordered. #left femoral neck fracture/fall s/p unwitnessed fall - patient uses wheelchair and walker at baseline hip/pelvis XR revealed left femoral neck fracture all other diagnostic imaging negative for acute changes laboratories stable dozier catheter ordered Aspiration and fall precautions pain control - IV Tylenol 1000mg roel, morphine 2/4 prn, Lidoderm patch - Narcan and oxygen prn with IV opioid use pt/ot consulted orthopedics team consult - will see in AM n.p.o. after midnight - patient's POLST form states no IV hydration, review and discussed with patient in the morning as hearing aids uncharged and extremely [place] on admission hold aspirin and Eliquis in preparation of surgical management, received doses at 8 PM 12/16 #A-fib Holding Eliquis and carvedilol with n.p.o. status in anticipation of surgical management EKG ordered K+ 3.6, Mg 1.7 -> will replete with 30 MeQ PO KCl and 1G IV mag trend bmp and mg monitor on tele #Alzheimer and vascular dementia Extremely hard of hearing Head CT negative for acute changes promote good sleep-wake cycles Monitor for delirium Chronic stable diagnoses: GERD - transition pantoprazole to IV Hx CVAholding ASA and Lipitor with possible surgical management History of PEholding Eliquis anemia - hgb 10.8, workup during recent admission, declined EGD and colonoscopy, may be new baseline with anemia of chronic disease VTE ppx: SCDs, holding Eliquis with potential surgical management Diet: NPO Dispo: med/tele with IV opioids and hx of a fib Admission and Anticipated Discharge Date Admission Date: 12/17/24 History of Present Illness Chief Complaint: trauma Primary Care Provider: Diomedes Spears III, MD Patient is an 84-year-old male with past medical history of Alzheimer's and vascular dementia, CKD stage III, CVA, PE, A-fib on Eliquis, history of lung and prostate cancer s/p surgical removal, and anemia. Patient came into the ED via EMS from [facility] after an unwitnessed fall and was found to have a left femoral neck fracture. he is being admitted for possible surgical management, holding Eliquis and aspirin, orthopedics team to evaluate in the a.m., PT/OT eval's ordered. Was recently hospitalized 11/19 to 11/28 due to acute gastroenteritis 2/ norovirus and anemia. PT/OT recommended rehab at this point however peer to peer was denied and patient was discharged home. Patient now resides at [facility] with his . Patient seen at bedside with his son present. Patient is extremely hard of hearing and did not have his hearing aids discharged, he stated he is tired right now, denies any pain after receiving 75 mcg of fentanyl and 4 Mg of morphine in ED. Patient's son provided the following history. He stated that the fall was unwitnessed but when he was found, his pants around his ankles so it is suspected that he tripped due to this. patient received all of his medications today including his evening medications of aspirin and Eliquis at 8 PM. He was complaining of significant pain prior to receiving IV pain medication, however is now sleeping and stable. POLST form reviewed with patient's son, DNR/DNI. Patient's son stated that he the patient would want surgical management of his femoral neck fracture if indicated by surgery team. Of note patient was previously a [facility] patient, however with recent placement at [facility], patient's family would like to transition to [facility] for hospitalist team. Allergies Allergy/AdvReac Type Severity Reaction Status Date / Time lactose Allergy Intermediate Gastrointestinal Verified 12/17/24 00:05 Upset oxycodone AdvReac Severe became Verified 12/17/24 00:05 apneic and bradycardic Home Medications Medication Instructions Recorded Confirmed Type citalopram 20 mg tablet 20 mg PO QAM 08/31/18 12/17/24 History carvedilol 6.25 mg tablet 6.25 mg PO QAM 03/09/20 12/17/24 History gabapentin 100 mg capsule 100 mg PO AMPM 03/09/20 12/17/24 History aspirin 81 mg tablet,delayed 81 mg PO QPM 07/04/20 12/17/24 History release albuterol sulfate 90 mcg/actuation 2 puff inhalation Q6 PRN Shortness 07/07/20 12/17/24 History aerosol inhaler Of Breath Or Wheezing apixaban 5 mg tablet (Eliquis) 5 mg PO AMHS 10/12/24 12/17/24 History meclizine 12.5 mg tablet 12.5 mg PO BID PRN Dizziness 10/12/24 12/17/24 History buspirone 5 mg tablet 5 mg PO TID 11/19/24 12/17/24 History meclizine 12.5 mg tablet 12.5 mg PO BID17 11/19/24 12/17/24 History acetaminophen 325 mg tablet 650 mg PO Q6H PRN PAIN/FEVER 12/17/24 12/17/24 History (Tylenol) benzonatate 100 mg capsule 100 mg PO Q8H COUGH 12/17/24 12/17/24 History fluoride (sodium) 1.1 % dental 1 applic dental BID 12/17/24 12/17/24 History cream (PreviDent 5000 Plus) hydrocodone 5 mg-acetaminophen 325 1 tab PO Q6H PRN Pain (Scale Score 12/17/24 12/17/24 History mg tablet 5-10) iron,carbonyl 65 mg-vitamin C 125 1 tab PO DAILY 12/17/24 12/17/24 History mg tablet,delayed release (Vitron-C) pantoprazole 40 mg tablet,delayed 40 mg PO DAILY 12/17/24 12/17/24 History release Past Med/Surg History Problem List (Updated 12/17/24 @ 00:22 by Marc Mendoza M.D.) Closed hip fracture (Acute) Fall (Acute) Encounter for hospice care discussion Counseling regarding advanced directives and goals of care Palliative care by specialist Anemia Norovirus Dementia (Acute) Acute dehydration (Acute) Nausea vomiting and diarrhea (Acute) Fall (Acute) Gastroenteritis (Acute) Diarrhea Fall Paroxysmal atrial fibrillation Mixed Alzheimer's and vascular dementia Anginal equivalent Dyspnea on minimal exertion Complete left bundle branch block (Acute) Chest pain (Acute) COVID-19 (Acute) Pneumonia involving right lung (Acute) Pneumonia involving right lung Vomiting (Acute) Headache (Acute) Chest pain (Acute) Acute ischemic stroke Acute confusion (Acute) History of CVA (cerebrovascular accident) (Acute) Middle cerebral artery stenosis (Acute) Pre-diabetes Aneurysmal dilatation Weakness (Acute) History of pulmonary embolism Supratherapeutic INR (Acute) Acute cerebrovascular accident (Acute) CKD (chronic kidney disease) stage 3, GFR 30-59 ml/min (Acute) Status post reverse arthroplasty of left shoulder (Acute ~05/2020) HTN (hypertension) Migraine (Chronic) HX OF DVT prophylaxis Medical History On anticoagulant therapy Pulmonary embolism hospitalized 03/12/2020-03/15/2020 [facility] w/ BL PE; unk etiology; on coumadin Degenerative disc disease Osteoarthritis GERD (gastroesophageal reflux disease) Cancer LUNG AND PROSTATE CANCER, both treated surgically Asthma Using albuterol inhaler TID now since PEs. Previously wasn't using inhaler at all. Surgical History History of cataract surgery LEFT/RIGHT History of carpal tunnel release RT X 2 LEFT X 3 History of laminectomy LUMBAR History of prostatectomy History of esophagogastroduodenoscopy (EGD) History of colonoscopy History of herniorrhaphy RT INGUINAL History of lobectomy of lung RT MIDDLE LOBE History of tooth extraction History of tonsillectomy History of adenoidectomy Family History Father FHx: prostate cancer Grandfather (Paternal) FHx: prostate cancer Social History Smoking Status: Never smoker Tobacco Type: Cigars Second Hand Exposure: No; Do You Dip or Chew Tobacco: No; Hx Alcohol Use: No Hx Substance Use: No Preferred Language: Nigerien Communication Ability: Effective 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 HEENT- EOMI, mucous membranes moist. Heart-normal S1 and S2. No murmurs, rubs or gallops. Lungs-clear bilaterally, no respiratory distress, no accessory muscle use. Abdomen-normal bowel sounds and soft. No ascites noted. Non-tender. Extremities- no clubbing, cyanosis, or edema. Neurovascularly intact. Results & Data Results & Data Vital Signs (Past 12 Hours) Vital Signs Temp Pulse Pulse Resp BP BP Pulse Ox 12/17/24 01:00 80 21 129/98 96 12/17/24 01:00 36.7 C 80 21 129/98 96 12/17/24 00:59 36.7 C 80 21 129/98 97 12/17/24 00:00 36.8 C 77 23 144/89 H 93 12/16/24 23:24 36.7 C 80 24 128/86 98 12/16/24 23:24 100 12/16/24 23:00 52 L 20 112/72 98 12/16/24 23:00 79 22 149/95 H 95 12/16/24 22:35 60 18 129/82 99 12/16/24 21:49 81 12/16/24 21:35 64 16 128/80 100 12/16/24 21:35 83 26 H 162/97 H 98 O2 Del Method O2 Flow Rate 12/17/24 01:00 Nasal Cannula 2 12/17/24 01:00 Nasal Cannula 2 12/17/24 00:59 Room Air 12/17/24 00:00 Room Air 12/16/24 23:24 Room Air 0 12/16/24 23:24 Room Air 12/16/24 23:00 Room Air 12/16/24 23:00 Room Air 12/16/24 22:35 Room Air 12/16/24 21:49 12/16/24 21:35 Room Air 12/16/24 21:35 Room Air Laboratory Results Reviewed CBC, CMP, PT/INR, COVID/flu/RSV, magnesium, lipase Diagnostic Findings reviewed hip/pelvis XR, head CT, CXR, chest CT, cervical spine CT, abdominal pelvis CT Medications Administered ED75 mcg fentanyl, 4 Mg morphine ECG Additional Comments: ordered Code Status & VTE Plan Code Status dnr/dni VTE Prophylaxis Plan VTE Prophylaxis will be ordered: Yes Supervising Physician Co-Signing Physician Notes Patient seen and examined, chart reviewed, case discussed with ERICKSON Saenz and I agree with the assessment and plan as documented above. In brief, patient is an 84-year-old male presenting with fall resulting in left femoral neck fracture. Patient neurologically intact. Pain is well-controlled with patient at rest On physical exam patient is hard of hearing, no acute distress Skinwarm, dry, intact, no rashes or bruising HEENTneck supple, moist mucous membranes Heart+ S1, S2, regular, no murmur/rub/gallops LungsCTA anteriorly Abdomenpositive bowel sounds, soft, nontender, nondistended Extremitiesleft lower extremity shortened externally rotated, neurovascularly intact Labs and images reviewed Assessment/[id number] male status post unwitnessed fall resulting in left femoral neck fracture Admit to medical Keep n.p.o. Pain control and antiemetics Orthopedics consultation appreciated Plan for OR in the morning Patient with atrial fibrillation on Eliquis anticoagulation. Last dose 12/16/2024 at 2000 hours. Will continue carvedilol morning of surgery Remainder as above PG Care Time/CCT Total # of Minutes Spent Total Time Spent with Patient: Total time spent is greater than 50% in coordination of care (as documented) at patient's floor/unit and/or counseling patient: Coding Level of Care Code 84941 INT INP/OBS CARE MIN Diagnoses Fall W19.XXXA Encounter type: initial encounter Closed hip fracture S72.002A Encounter type: initial encounter Laterality: left Paroxysmal atrial fibrillation I48.0 Mixed Alzheimer's and vascular dementia G30.9; F01.50; F02.80 (1) Fall Encounter type: initial encounter Qualified Code(s): W19.XXXA - Unspecified fall, initial encounter (2) Closed hip fracture Encounter type: initial encounter Laterality: left Qualified Code(s): S72.002A - Fracture of unspecified part of neck of left femur, initial encounter for closed fracture
[2024-12-17 01:46] LABS: Influenza A virus by PCR Negative (Neg); Influenza B virus by PCR Negative (Neg); RSV by PCR Negative (Neg); SARS CoV2 RNA(COVID-19) Ceph NEGATIVE (Negative)
[2024-12-17] MEDS: POTASSIUM CHLORIDE 10 MEQ TABCR PO STA (02:27)
[2024-12-17] MEDS: MAGNESIUM SULFATE / D5W 1 GM/100 ML BAG IV ONE (02:31)
[2024-12-17] MEDS ORDERED: MoRPHine SULFATE 2 MG/ML CARP IV PRN (02:47)
[2024-12-17] MEDS ORDERED: ALBUTEROL HFA 8 GM INHALER INH PRN (02:47)
[2024-12-17] MEDS ORDERED: NALOXONE HCL 0.4 MG/1 ML VIAL/CARP IV PRN (02:47)
[2024-12-17 03:13] LABS: Appearance Urine Clear (Clear); Bilirubin Urine Negative (Negative); Blood Urine Negative (Negative); Color Urine Yellow; Glucose Urine UA Negative (Negative); Ketones Urine Trace (Negative); Leukocyte Esterase Urine Negative (Negative); Nitrite Urine Negative (Negative); Protein Urine Negative (Negative); Specific Gravity Urine 1.015 (1.000-1.030); Urobilinogen Urine Negative (Negative)
[2024-12-17] MEDS: ACETAMINOPHEN 1,000 MG/100 ML VIAL IV SCH (03:13)
[2024-12-17] MEDS: MoRPHine SULFATE 4 MG/ML 1 ML CARP\\VIAL IV PRN (03:42)
[2024-12-17] MEDS: ONDANSETRON INJ 2 MG/ML 2 ML VIAL IV PRN (03:47)
[2024-12-17] MEDS: LIDOCAINE 5% 1 PATCH TD SCH (05:36)
[2024-12-17] MEDS ORDERED: HYDROmorphone INJ 0.5 MG/0.5 ML SYR IV PRN (06:30)
[2024-12-17] MEDS: HYDROmorphone INJ 0.5 MG/0.5 ML SYR IV PRN (07:36)
--- NOTE | 2024-12-17 07:56 | Electrocardiogram Report ---
Test Reason : Blood Pressure : */* mmHG Vent. Rate : 85 BPM Atrial Rate : 85 BPM P-R Int : 144 ms QRS Dur : 108 ms QT Int : 404 ms P-R-T Axes : 80 -34 77 degrees QTcB Int : 480 ms Normal sinus rhythm Incomplete left bundle block Abnormal ECG When compared with ECG of 19-Nov-2024 14:09, No significant change Confirmed by Cheo Diaz ([id number]) on 12/17/2024 7:56:32 AM Referred By: [facility] Confirmed By: Cheo Diaz
--- OUTSIDE RECORDS SUMMARY | 2024-12-17 08:19 | External Medical Summary | Summary of Care ---
Author Name Unknown Organization [facility] Address [address] [place] [address] Phone [phone] Care Team Providers Care Turbo Generator Oiler Name Role Phone Ranulfo Schumacher DO Primary Care Provider [phone] Encounter Details Date Type Department Care Team (Late st Contact Info) Description 12/12/2024 3:45 PM EDT Scheduled Telephone Care Coordination and Integration [address] [place] [address] Ritchie Abdi [facility] Technician [address] [place] [address] Allergies Active Allergy Reactions Criticality Noted Date Comments Oxycodone 10/11/2020 caused heart to stopped--per patient documented as of this encounter (statuses as of 12/13/2024) Medications ASPIRIN EC 81 MG PO TBEC Take 1 Tablet by mouth every evening. Active PREVIDENT 5000 BOOSTER PLUS 1.1 % DT PSTE [place] onto teeth. Special tooth paste 5 Active Tylenol 325 MG Oral Capsule (Acetaminophen) Take 650 mg by mouth every 6 hours as needed for Pain, Moderate (up to 3000 units per day). Active Apixaban 5 MG Oral Tablet (Eliquis)Indicat ions:PAF (paroxysmal atrial fibrillation) ([facility]),History of pulmonary embolism TAKE ONE TABLET BY MOUTH IN THE MORNING AND TAKE ONE TABLET BY MOUTH BEFORE BEDTIME 200 Tablet 3 08/27/2024 12:55 PM EST 4 Active Additional Information Patient taking differently: 5 mg Oral BID (.AM/PM), Reported on 12/06/2024 Gabapentin 100 MG Oral Capsule (Neurontin)Indic ations:Lumbar [...] differently: 6.25 mg Oral DAILY(1900), Reported on 12/06/2024 HYDROcodone-Acet aminophen 5-325 MG Oral TabletIndication s:Lumbar degenerative disc disease Take 1 Tablet by mouth every 6 hours as needed for Pain, Mild. 45 Tablet 5 Active Additional Information Patient not taking.Reported on 12/06/2024 Albuterol Sulfate HFA 108 (90 Base) MCG/ACT Inhalation Aerosol SolutionIndicati ons:Shortness of breath Inhale 2 Puffs by mouth every 6 hours as needed for Shortness of Breath. 18 g 5 5 Active busPIRone HCl 5 MG Oral [...] 1 11/15/2024 12:17 PM EST 5 Active Additional Information Patient taking differently: 40 mg Oral BID (.AM/PM), Reported on 12/06/2024 Meclizine HCl 12.5 MG Oral Tablet (Antivert)Indica tions:Vertigo Take 1 Tablet by mouth 2 times a day as needed for Dizziness. 200 Tablet 1 11/17/2024 6:44 AM EST 5 Active Benzonatate 100 MG Oral Capsule (Tessalon Perles) Take 1 Capsule by mouth 3 times a day as needed for Cough. Active documented as of this encounter (statuses as of 12/13/2024) Active Problems Problem Noted Date Diagnosed Date [...] as of this encounter (statuses as of 12/13/2024) Resolved Problems Problem Noted Date Diagnosed Date [...] as of this encounter (statuses as of 12/13/2024) Immunizations Name Administration Dates Next Due COVID-19 [...] (Prevnar) 10/25/2015,05/12/2015 Pneumococcal Conjugate Vacci ne, 20-valent ([id number]) 09/07/2024 Pneumococcal Conjugate Vacci ne, 7 Valent [...] the money to buy more. Never true 11/30/19 25 Within the past 12 months, t he food you bought just didn't last and you didn't have money to get more. Never true 11/29/2024 Childcare Answer Date Recorded Do you feel overwhelmed with taking care of a child, family member or friend? No 11/29/2024 Does your family need help f inding childcare? (Household - for ages 0-17 years) Not on file 11/29/2024 Clothing Answer Date Recorded Have you been unable to get clothing when it was really needed? No 11/29/2024 Is your family able to get c lothes or diapers when needed? (Household - for ages 0-17 years) Not on file 11/29/2024 Personal Safety Answer Date Recorded Do you feel unsafe or have concerns for your saf ety? No 11/29/2024 Do you have concerns for you r family's safety? (Household - for ages 0-17 years) Not on file 11/29/2024 Utilities Answer Date Recorded Do you have trouble paying y our heating, water, or electric bill? No 11/29/2024 Is your family able to pay t he heat, water, or electric bill? (Household - for ages 0-17 years) Not on file 11/29/2024 Does your family have access to good internet? (Household - for ages 0-17 years) Not on file 11/29/2024 Employment Status Answer Date Recorded Are you unemployed or without regular income? No 11/29/2024 Does the household have a re lar source of income? (Household - for ages 0-17 years) Not on file 11/29/2024 Social Connections Answer Date Recorded How often do you feel lonely or isolated from th ose around you? Never 11/29/2024 Financial Resource Strain Answer Date R ecorded Do you have any trouble payi ng for your medications, or do you think you might in the future? No 11/29/2024 Does your family have troubl e paying for medicine? (Household - for ages 0-17 years) Not on file 11/29/2024 Transportation Needs Answer Date Record ed Do you have trouble getting a ride to medical visits or work? (Adult - for ages 18 years and over) Not on file 11/29/2024 Does your family have a hard time getting a ride to doctors visits? (Household - for ages 0-17 years) Not on file 11/29/2024 Has lack of transportation k ept you from medical appointments, meetings, work, or from getting things needed for daily living? Check all that apply. No 11/29/2024 Do you (or your family) have trouble finding or paying for a ride (transportation)? (Household - for ages 0-17 years) Not on file 11/29/2024 Housing Stability Answer Date Recorded Do you currently live in a s helter or have no steady place to sleep at night? No 11/29/2024 Do you think you are at risk of becoming homeless? (Adult - for ages 18 years and over) Not on file 11/29/2024 Does your family worry about paying for your home or becoming homeless? (Household - for ages 0-17 years) Not on file 0 11/29/2024 Are you homeless or worried that you might be in the future? No 11/29/2024 Are you (or your family) adelaida eless [...] the money to buy more. Never true 11/30/19 25 Within the past 12 months, t he food you bought just didn't last and you didn't have money to get more. Never true 11/29/2024 Do you need food for this week? No 11/29/2024 Sex and Gender Information Value Date Recorded Sex Assigned at Male 10/11/2019 9:33 AM EST Legal Sex Male 11:05 AM EDT Gender Identity Male 10/11/2019 9:33 AM EST Sexual Orientation Straight 10/11/2019 9: 33 AM EST documented as of this encounter Progress Notes * Ritchie Abdi [facility] Techn[facility] - 12/12/2024 3:58 PM EDT Telemedicine visit: No Community Health Facility Technician (JOSE ROBERTO) documentation: CHW follow up phone call for RNCM and spoke with the patient's daughter, Radhika, per RNCM request. CHW asked the RNCM's question of whether the family plans on utilizing the facility doctor for future care for the patient or if they plan to continue with the PCP and bring the patient to the [address] [place] [address] clinic for appointments. Parish explained that this is all new to her and she is unsure how it works, however she was thinking that future care would kind of involve both. With the facility doctor providing the majority of the care, while also including the PCP. Radhika expressed that she understands that the facility doctor would be there to handle the acute issues more readily. Radhika stated that there are no current concerns involving the patient. She reports having the RNCM's phone number to call. Nikko Abdi [facility] [phone] documented in this encounter Plan of Treatment Upcoming Encounters Date Type Department Care Team (Late st Contact Info) Description 01/13/2025 2:20 PM EDT Office Visit Family Practice [address] [place] [address] [address] [place] [address] Ranulfo Schumacher DO [address] [place] [address] Scheduled Procedures Name Priority Associated Diagnoses Date/Ti me INJECTION SPINE LUMBAR OR SACRAL Spinal stenosis of lumbar region without neurogenic claudication Health Maintenance Due Date Last Done Comments Adult Wellness Visit 09/10/2024 09/10/2023, 05/31/20 21 Albumin/Creatinine Ratio 01/10/2025 024, 03/27/2023, 05/26/2022, Additional history exists COVID-19 Vaccine (8 - Moderna risk 2023- season) 2025 09/07/2024, 07/13/2023, 10/14/2022, Additional history exists CKD PHOS USE SMARTSET 10423 08/30/2025 12/0 11/2023, 09/22/2023, 09/12/2022, Additional history exists Depression Screening 08/31/2025 08/31/2024, 08/30/20 24 CKD HGB USE SMARTSET 04992 12/06/202512/06, 12/06/2024, 10/20/2024, Additional history exists DTap/Tdap Vaccines (3 - [...] this encounter Medical Devices Implanted Type Area Resourcing Consultant Device Identifier Shelf Expiration Date Model / Serial / Lot Plug Mesh Small Hernia - [id number] Implanted:Qty: 1 on 12/28/2017 by Jorge Luis Krause MD at [facility] Right: Groin CR BARD : DAVOL 02/25/2019 [id number] / / [id number] documented as of this encounter Advance Directives Documents on File Type Date Recorded Patient Edge Grinder Machine Expl anation POLST 12/09/2024 signed on 12/06 POLST - DNR/Limited Interventions Power of Sharepoint Solutions Architect 01/02/2023 Mukul banda signed on 01/02/2023 - Combined Living Will & Health Care POA Power of Sharepoint Solutions Architect 11/27/2014 signed on 11/27/2014 Health Care POA & Living Will and "What If I had Dementia" worksheet Healthcare Agents on File Name Relationship Healthcare Agent Relationshi p Communication Mukul French Adult Child Health Care Agen t (per Health Care Power of Sharepoint Solutions Architect document) Radhika bajwa Adult Child First Alternate Health Care Agent (per Health Care Power of Sharepoint Solutions Architect document) Care Teams Turbo Generator Oiler Relationship Specialty Start Date End Date Ranulfo Schumacher DO [address] [place] [address] PCP - General Internal Medicine 03/11/24 documented as of this encounter
--- OUTSIDE RECORDS SUMMARY | 2024-12-17 08:19 | External Medical Summary | Summary of Care ---
Author Name Unknown Organization [facility] Address [address] [place] [address] Phone [phone] Care Team Providers Care Physician Office Clin Asst Name Role Phone Ranulfo Schumacher DO Primary Care Provider [phone] Encounter Details Date Type Department Care Team (Late st Contact Info) Description 12/06/2024 9:30 AM EDT Scheduled Telephone Care Coordination and Integration [address] [place] [address] Liat Gamez, Community Health Therapist Physical [address] [place] [address] Allergies Active Allergy Reactions Criticality Noted Date Comments Oxycodone 10/11/2020 caused heart to stopped--per patient documented as of this encounter (statuses as of 12/06/2024) Medications ASPIRIN EC 81 MG PO TBEC Take 1 Tablet by mouth every evening. Active MULTI VITAMIN/MINERALS PO TABS Take 1 Tablet by mouth in the morning. Active PREVIDENT 5000 BOOSTER PLUS 1.1 % DT PSTE [place] onto teeth. Special tooth paste 5 Active [...] 5 mg Oral BID (.AM/PM), Reported on 11/29/2024 Gabapentin 100 MG Oral Capsule (Neurontin)Indic ations:Lumbar [...] differently: 6.25 mg Oral DAILY(1900), Reported on 11/29/2024 HYDROcodone-Acet aminophen 5-325 MG Oral TabletIndication s:Lumbar [...] 40 mg Oral BID (.AM/PM), Reported on 11/29/2024 Meclizine HCl 12.5 MG Oral Tablet (Antivert)Indica tions:Vertigo Take 1 Tablet by mouth 2 times a day as needed for Dizziness. 200 Tablet 1 11/17/2024 6:44 AM EST 5 Active Benzonatate 100 MG Oral Capsule (Tessalnahun Perljohn) Take 1 Capsule by mouth 3 times a day as needed for Cough. Active documented as of this encounter (statuses as of 12/06/2024) Active Problems Problem Noted Date Diagnosed Date [...] (12/10/2022 6:20 PM EDT): Regular today. -continue Brisa Garveyquis History of pulmonary embolism 10/21/2021 Assessment & [...] as of this encounter (statuses as of 12/06/2024) Resolved Problems Problem Noted Date Diagnosed Date [...] as of this encounter (statuses as of 12/06/2024) Immunizations Name Administration Dates Next Due COVID-19 mRNA, LNP-s, No Pre serve, 2-Dose Series (Moderna) 07/17/2021,11/28/2020,11/01/2020 COVID-19, LNP-s, No Preserve , Cheng-sucrose, Ages 12+ (Pfizer) 05/13/2022 COVID-19, MRNA-LNP, PF, 30 M CG/0.3 mL, 12 YRS AND ABOVE, IM ([facility]) 09/07/2024,07/13/2023 Covid-19, Mrna, Lnp-s, Pf, B ivalent, 30 Mcg, IM, 12 yrs and above (Pfizer) 10/14/2022 Pneumococcal Conjugate Vacc, 13 Valent (Prevnar) 10/25/2015,05/12/2015 Pneumococcal Conjugate Vacci ne, 20-valent ([id number]) 09/07/2024 Pneumococcal Conjugate Vacci ne, 7 Valent [...] 11/29/2024 Does the household have a re gular [...] Progress Notes * Liat Gamez, Community Health Therapist Physical - 12/06/2024 9:19 AM EDT Telemedicine visit: No Community Health Therapist Physical (JOSE ROBERTO) documentation: This CHW placed 1st f/u PC to patients daughter Radhika per CM's request Radhika reported that they are going to [address] Schumacher today for follow up from patient being in [facility] for Norovirus. They have heard from [facility] and they have eval tomorrow for PT. OT has not started yet. Patient is not using walker. They have not had any update from [facility], the last she knew there was a 8 month wait list. Radhika reported that they are looking at other options and will be discussing this after or during Dr. Schumacher's appointment today. CHW reviewed red flags with Pa and patient did have some diarrhea last night and she gave him Imodium and that helped. Will address any other questions or concerns with the doctor later today. This Chw encouraged Radhika to reach out to CM with any concerns or questions and this CHW will be following up with Radhika next week as scheduled. Liat Gamez- Community Health Worker 1 Support Services/[email or web address] documented in this encounter Plan of Treatment Upcoming Encounters Date Type Department Care Team (Late st Contact Info) Description 12/06/2024 2:30 PM EDT Nurse Only Family Practice [address] [place] [address] [place] [address] College, Nurse [facility] Prac [address] [facility] [address] [place] [address] 12/06/2024 3:00 PM EDT Office Visit Family Practice [address] [facility] [address] [place] [id number] Ranulfo Schumacher DO [address] [place] [address] Scheduled Procedures Name Priority Associated Diagnoses Date/Ti me INJECTION SPINE LUMBAR OR SACRAL Spinal stenosis of lumbar region without neurogenic claudication Health Maintenance Due Date Last Done Comments Adult Wellness Visit 09/10/2024 09/10/2023, 05/31/20 21 Albumin/Creatinine Ratio 01/10/2025 024, 03/27/2023, 05/26/2022, Additional history exists COVID-19 Vaccine (8 - Moderna risk 2023- season) 2025 09/07/2024, 07/13/2023, 10/14/2022, Additional history exists CKD PHOS USE SMARTSET 58288 08/30/202511/2023, 09/22/2023, 09/12/2022, Additional history exists Depression Screening 08/31/2025 08/31/2024, 08/30/20 24 CKD HGB USE SMARTSET 39870 10/20/202510/20, 10/20/2024, 08/30/2024, Additional history exists DTap/Tdap [...] this encounter Medical Devices Implanted Type Area Overhead Cleaner Device Identifier Shelf Expiration Date Model / Serial / Lot Plug Mesh Small Hernia - [id number] Implanted:Qty: 1 on 12/28/2017 by Jorge Luis Krause MD at OR [facility] Right: Groin CR BARD : DAVOL 02/25/2019 [id number] / / [id number] documented as of this encounter Advance Directives Documents on File Type Date Recorded Patient Department Clinician Expl anation Power of Whip Sawyer 01/02/2023 Mukul banda signed on 01/02/2023 - Combined Living Will & Health Care POA Power of Whip Sawyer 11/27/2014 signed on 11/27/2014 Health Care POA & Living Will and "What If I had Dementia" worksheet Healthcare Agents on File Name Relationship Healthcare Agent Relationshi p Communication Mukul French Adult Child Health Care Agen t (per Health Care Power of Whip Sawyer document) Radhika bajwa Adult Child First Alternate Health Care Agent (per Health Care Power of Whip Sawyer document) Care Teams Physician Office Clin Asst Relationship Specialty Start Date End Date Ranulfo Schumacher DO [address] [place] [address] PCP - General Internal Medicine 03/11/24 documented as of this encounter
--- OUTSIDE RECORDS SUMMARY | 2024-12-17 08:19 | External Medical Summary | Clinical Summary ---
Author Name Unknown Organization [facility], [place] Address [address] [address] Phone Care Team Providers Care Death Surveys Coder Name Role Phone Ranulfo Schumacher DO Primary Care Provider [phone] Allergies Active Allergy Reactions Criticality Noted Date Comments Oxycodone 10/11/2020 caused heart to stopped--per patient Medications ASPIRIN EC 81 MG PO TBEC Take 1 Tablet by mouth every evening. Active PREVIDENT 5000 BOOSTER PLUS 1.1 % DT PSTE [place] onto teeth. Special tooth paste 09/28/19 15 [...] 3 08/27/2024 12:55 PM EST 11/14/19 24 Active Additional Information Patient taking differently: 5 [...] Breath. 18 g 5 10/20/19 25 Active busPIRone HCl 5 MG Oral Tablet (Buspar)Indicati ons:Anxiety Take 1 Tablet by mouth in the morning and 1 Tablet at noon and 1 Tablet before bedtime. 90 Tablet 3 10/26/19 25 Active Citalopram Hydrobromide 20 MG Oral Tablet (CeleXA)Indicati ons:Anxiety TAKE ONE TABLET BY MOUTH DAILY IN THE MORNING. 100 Tablet 3 11/15/2024 12:17 PM EST 11/14/19 25 026 Active Pantoprazole Sodium 40 MG Oral Tablet Delayed Release (Protonix)Indica tions:Gastroesop hageal reflux disease without esophagitis TAKE ONE TABLET BY MOUTH IN THE MORNING 100 Tablet 1 11/15/2024 12:17 PM EST 11/14/19 25 Active Additional Information Patient taking differently: 40 mg Oral BID (.AM/PM), Reported on 12/06/2024 Meclizine HCl 12.5 MG Oral Tablet (Antivert)Indica tions:Vertigo Take 1 Tablet by mouth 2 times a day as needed for Dizziness. 200 Tablet 1 11/17/2024 6:44 AM EST 11/14/19 25 Active Benzonatate 100 MG Oral Capsule (Tesfabiola Sanon) Take 1 Capsule by mouth 3 times a day as needed for Cough. Active MULTI VITAMIN/MINERALS PO TABS Take 1 Tablet by mouth in the morning. 025 Discontin ued(Medic ation/Dos e Changed) Magnesium Oxide 400 (240 Mg) MG Oral Tablet Take 1 Tablet by mouth at bedtime. 025 Discontin ued(Medic ation List Clean Up) Citalopram Hydrobromide 20 MG Oral Tablet (CeleXA)Indicati [...] EST 05/17/20 24 025 Discontin ued(Refil l) Atorvastatin Calcium 40 MG Oral Tablet (Lipitor)Indicat ions:Dyslipidemi a, goal LDL below 130 TAKE ONE TABLET BY MOUTH EVERY DAY 100 Tablet 1 10/21/2024 3:18 PM EST 10/21/19 25 025 Discontin ued(Medic ation List Clean Up) Active Problems Problem Noted Date Diagnosed Date [...] (01/27/2023 10:32 AM EDT): Rate controlled -continue Mare Garcia Assessment & Plan (12/10/2022 6:20 PM EDT): [...] PCP next visit Carpal tunnel syndrome 05/16/2013 Resolved Problems Problem Noted Date Diagnosed Date [...] reflux disease) 05/16/2013 10/11/2019 Migraine 05/16/2013 10/11/2019 Encounters Date Type Department Care Team Description 12/06/2024 3:00 PM EDT Office Visit Family [address] 293 [place] [address] Ranulfo Schumacher DO Norovirus*; Volume depletion; Anemia, unspecified type; STACEY (generalized anxiety disorder); Gastroesophageal reflux disease without esophagitis; History of lung cancer; History of prostate cancer; History of pulmonary embolism; Hypertensive kidney disease with stage 3a chronic kidney disease (HCC); Degeneration of intervertebral disc of lumbar region with discogenic back pain; Middle cerebral artery stenosis, right; Mixed Alzheimer's and vascular dementia (HCC); PAF (paroxysmal atrial fibrillation) (HCC); Pure hypercholesterolemi a; Impacted cerumen, bilateral 12/06/2024 9:30 AM EDT Scheduled Telephone Care Coordination and Integration [address] [place] [address] Liat Gamez [facility] Forensic Medical Examiner 12/01/2024 Telephone Care Coordination [address] [place] [address] Sandrine Theodore LCSW [employer] Software Engineer Documentation ([employer]... 11/24/2024 Telephone Care Coordination [address] [place] [address] Sandrine Theodore LCSW [employer] Software Engineer Documentation ([employer]... 11/21/2024 Telephone Care Coordination [address] [place] [address] Sandrine Theodore LCSW [employer] Software Engineer Documentation ([employer]... 11/18/2024 Telephone Interventional Pain Center, [facility] 132 [facility] [place] [address] John Ferrer, 11/17/2024 Telephone Interventional Pain Center, [facility] 132 [facility] [place] [address] John Ferrer, Appointment 11/15/2024 Telephone Interventional Pain Center [facility] [address] [phone] John Ferrer, Appointment 11/14/2024 1:30 PM EST Scheduled Telephone Care Coordination and Integration [address] [facility] [place] [address] Liat Gamez, [facility] Forensic Medical Examiner 11/13/2024 Refill Family Practice [address] [place] [phone] Ranulfo Schumacher, HTN, goal below 140/90*; Anxiety; Vertigo; Gastroesophageal reflux disease without esophagitis 11/07/2024 4:15 PM EST Scheduled Telephone Care Coordination and Integration [address] [place] [address] Liat Gamez, [facility] Forensic Medical Examiner 11/03/2024 11:00 AM EST Scheduled Telephone Care Coordination and Integration [address] [place] [address] Liat Gamez, [facility] Forensic Medical Examiner 11/02/2024 Telephone STAIR LUNG NODULE [address] [facility] [address] Program, Stair STAIR Lung Nodule 11/01/2024 Telephone Family Practice [address] [place] [address], [place] [phone] Ranulfo Schumacher, Test Results (11/01) 10/26/2024 2:00 PM EST Scheduled Telephone Interventional Pain Center [facility] [address] [place] [phone] Allan Nurse Phone Call Interventional Pain [facility] 10/26/2024 Travel 10/25/2024 11:30 AM EST PulmDiagnostic Pulmonary Function Lab, [facility] [address] [place] [address] [place], Pft Shortness of breath* 10/25/2024 Telephone Family Practice 65 [facility] 293 [place] [phone] Ranulfo Schumacher, Triage Advice (Chest tightness/sob) 10/25/2024 Travel 10/21/2024 Telephone Care Coordination [address] [place] [address] Sandrine Theodore LCSW [employer] Software Engineer Documentation ([employer]... 10/20/2024 4:15 PM EST Imaging Radiology [facility] [facility], [place] [address] [place] [address] Shortness of breath 10/20/2024 3:10 PM EST Laboratory Laboratory, [facility] 132 [place] [phone] [facility] [employer] Other*[id number]; Shortness of breath 10/20/2024 11:20 AM EST Office Visit Family Practice [address] [place] [phone] Ranulfo Schumacher, DO Shortness of breath*; PAF (paroxysmal atrial fibrillation) ([facility]); Hypertensive kidney disease with stage 3a chronic kidney disease (HCC); Mixed Alzheimer's and vascular dementia ([facility]); Migraine without aura and without status migrainosus, not intractable; STACEY (generalized anxiety disorder); Pure hypercholesterolemi a; History of lung cancer; History of prostate cancer; Middle cerebral artery stenosis, right; Gastroesophageal reflux disease without esophagitis; Risk and functional assessment; Hospital discharge follow-up 10/20/2024 Telephone Family Practice [address] [phone] Ranulfo Schumacher, DO Test Results 10/20/2024 Refill Family Practice [address] [place] [phone] Ranulfo Schumacher, DO Dyslipidemia, goal LDL below 130 10/18/2024 Telephone Family Practice [address] [phone] Ranulfo Schumacher, DO Information; Advice (10/18) 10/17/2024 Population Health External Data Unspecified Department 10/17/2024 Telephone Care Coordination [address] [place] [address] Sandrine Theodore, SUREKHA J2Ee Software Engineer Documentation ([employer]... 10/14/2024 3:00 PM EST Telemedicine Family Practice 65 [facility] 293 [place] [phone] College, Pharmacist 65 [facility] Medication management* 10/14/2024 2:00 PM EST Scheduled Telephone Family Practice 65 [facility] 293 [place] [phone] Tamy Raya RN 10/14/2024 Travel 10/14/2024 Telephone Family Practice 65 [facility] 293 [place] [phone] Ranulfo Schumacher, DO Appointment 10/13/2024 Telephone Family Practice 65 [facility] 293 [place] [phone] Ranulfo Schumahcer, DO Advice 10/12/2024 Telephone Family Practice 65 [facility] 293 [facility], [place] [phone] Ranulfo Schumacher, DO Triage Advice 10/11/2024 Result Scan Unspecified Department <No scans attached> 10/04/2024 Refill Family Practice 65 [facility] 293 [facility], [place] [phone] Ranulfo Schumacher, DO Lumbar degenerative disc disease 09/30/2024 10:55 AM EST - 09/30/2024 11:20 AM EST Surgery OR [facility], Operating Room [facility] 132 [facility] [place] [phone] John Ferrer, INJECTION SPINE LUMBAR OR SACRAL 09/30/2024 10:04 AM EST - 09/30/2024 11:43 AM EST Hospital Encounter OR [facility], Operating Room [facility] [address] [place] [phone] John Ferrer, DO Discharge Disposition: Home - Self Care 09/30/2024 Travel 09/26/2024 Travel 09/26/2024 Telephone Family Practice 65 [facility] 293 [facility], [place] [phone] Ranulfo Schumacher, DO Test Results 09/22/2024 4:00 PM EST Cardiac Studies Cardiac Studies, [facility] [address] [place] [address] Shortness of breath 09/22/2024 Travel 09/07/2024 1:15 PM EST Immunization Ancillary 65 [facility] 293 [place] [address] College, Covid[address] [place] [address] Need for COVID-19 vaccine*; Need for pneumococcal 20-valent conjugate vaccination 09/07/2024 Travel 09/07/2024 Telephone Family Practice 65 [facility] 293 [place] [phone] Ranulfo Schumacher, DO Advice (injections) from Last 3 Months Immunizations Name Administration Dates Next Due COVID-19 [...] (Prevnar) 10/25/2015,05/12/2015 Pneumococcal Conjugate Vacci ne, 20-valent ([id number]) 09/07/2024 Pneumococcal Conjugate Vacci ne, 7 Valent [...] 06/28/2007 Zoster Vaccine Recombinant (Shingrix) 08/19/2019 ,06/19/2019 Family History Medical History Relation Name Comments JOSE MANUEL on CPAP Brother Cancer Father prostate Heart Disorder Mother Vascular dementia Mother Eye Problems None denies FH: GLAU COMA, AMD, RD'S, BLINDNESS 5 Children -- No respiratory issues Other Relation Name Status Comments Brother Father (Age 79) from prostate cancer Mother (Age 85) from heart disease None Other Social History Tobacco Use Types Packs/Day Years [...] Orientation Straight 10/11/2019 9: 33 AM EST Last Filed Vital Signs Vital Sign Reading Time Taken Comments Blood Pressure 124/74 12/06/2024 2:16 PM EDT Pulse 93 12/06/2024 2:16 PM EDT Temperature 36.5 C (97.7 F) 12/06/2024 2:16 PM ED T Respiratory Rate 18 10/25/2024 11:35 AM EST Oxygen Saturation 96% 12/06/2024 2:16 PM EDT Inhaled Oxygen Concentration - - Weight 68.6 kg (151 lb 3.2 oz) 12/06/2024 2:16 P M EDT Height 159 cm (5' 2.6") 12/06/2024 2:16 PM EDT Body Mass Index 27.13 12/06/2024 2:16 PM EDT Plan of Treatment Upcoming Encounters Date Type Department Care Team (Late st Contact Info) Description 01/13/2025 2:20 PM EDT Office Visit Family Practice [address], [place] [address] [place] [address] Ranulfo Schumacher DO 293 [facility] [place] [address] Scheduled Procedures Name Priority Associated Diagnoses Date/Ti me INJECTION SPINE LUMBAR OR SACRAL Spinal stenosis of lumbar region without neurogenic claudication Health Maintenance Due Date Last Done Comments Adult Wellness Visit 09/10/2024 09/10/2023, 05/31/20 21 Albumin/Creatinine Ratio 01/10/2025 024, 03/27/2023, 05/26/2022, Additional history exists COVID-19 Vaccine (8 - Moderna risk 2023- season) 2025 09/07/2024, 07/13/2023, 10/14/2022, Additional history exists CKD PHOS USE SMARTSET 81309 08/30/2025 1211/2023, 09/22/2023, 09/12/2022, Additional history exists Depression Screening 08/31/2025 08/31/2024, 08/30/20 24 CKD HGB USE SMARTSET 98880 10/20/202510/20, 10/20/2024, 08/30/2024, Additional history exists DTap/Tdap [...] on patient's age to complete this topic Medical Devices Implanted Type Area Stick Inserter Device Identifier Shelf Expiration Date Model / Serial / Lot Plug Mesh Small Hernia - [id number] Implanted:Qty: 1 on 12/28/2017 by Jorge Luis Krause MD at OR [facility] Right: Groin CR BARD : DAVOL 02/25/2019 [id number] / / [id number] Procedures Procedure Name Priority Date/Time Associated Diagnosis Comments PULSE OX W/ REST/EXERCISE, MULTIPLE (OP) Routine 10/25/[address] CHEST W CONTRAST STAT 10/20/2024 4 :25 PM EST Shortness of breath DIFFERENTIAL, AUTOMATED STAT 10/20/2024 3:01 PM EST Shortness of breath CBC STAT 10/20/2024 3:01 PM EST Shortness of breath MYCODE INITIAL ADULT-2SST Routine 10/20/2024 3:01 PM EST [employer] Other*[id number] MYCODE SST1 Routine 10/20/2024 3:01 PM EST [employer] Other*[id number] CBC STAT 10/20/2024 3:01 PM EST Shortness of breath COMPREHENSIVE METABOLIC PANEL STAT 10/20/2024 3:01 PM EST Shortness of breath MYCODE SUBSEQUENT ADULT Routine 10/20/2024 3:01 PM EST [employer] Other*[id number] CARDIOLOGY SCANNED RESULT 10/13/2024 PROCEDURE SCANNED RESULT 10/11/2024 FLUORO INTERVENTIONAL PAIN PROCEDURE NONBILLABLE Routine 09/30/2024 11:40 AM EST Inject Dx/Ther Substance Interlaminar Lumbar/Sacral W Image Guide 09/30/2024 11:18 AM EST Lumbar radiculopathy ECHO, COMPLETE (2D), TRANS-THORACIC Routine 09/22/2024 3:44 PM EST Shortness of breath PHOSPHORUS Routine 08/30/2024 2:49 PM EST Hypertensive kidney disease with stage 3a chronic kidney disease (HCC) ALBUMIN / CREATININE RATIO, URINE Routine 01/11/2024 3:27 PM EDT Chronic kidney disease, stage 3a (HCC) from Last 3 Months or Most Recently Relevant to Health Maintenance Results * PULSE OX W/ REST/EXERCISE, MULTIPLE (OP) (10/25/2024) 10/25/2024 Ranulfo Schumacher DO MEDICINE Final Result * CT CHEST W CONTRAST (10/20/2024 4:25 [...] shoulder arthroplasty. Degenerative changes of the spine. [id number] body hemangioma. Grade 1 retrolisthesis of L1 [...] be considered forfurther evaluation if clinically warranted. Ranulfo Schumacher DO RAD CT Final Result * MYCODE SST1 (10/20/2024 3:01 PM EST) MyCode Specimen Freezing of extracted DNA, whole blood and/or serum. 10/21/2024 10:02 AM EST [facility] Blood Venous blood specimen / Unknown Venipuncture / Unknown 10/20/2024 3:01 PM EST 10/20/2024 3:01 PM EST Sana Singh CHRA LAB BLOOD ORDERABLES Krissy l Result [facility] [address] [place] [address] * MYCODE SST2 (10/20/2024 3:01 PM EST) Pathologist [facility] MyCode Specimen Freezing of extracted DNA, whole blood and/or serum. 10/21/2024 10:02 AM EST [facility] Blood Venous blood specimen / Unknown Venipuncture / Unknown 10/20/2024 3:01 PM EST 10/20/2024 3:01 PM EST Sana Beltran [employer] CHRA LAB BLOOD ORDERABLES Krissy l Result Performing Organization Address City/[facility]/ZIP Co de Phone Number LAB[facility]ORY [facility] [address] [place] [address] * DIFFERENTIAL, AUTOMATED (10/20/2024 3:01 PM EST) [facility] WBC 8.17 4.00 - 10.80 K/uL 10/20/2024 3:20 PM EST LABORATORY [place] 57-10 Neutrophils % 61.4 40.0 - 75.0 % 10/20/2024 3:20 PM EST LABORATORY [place] 57-10 Lymphocytes % 28.9 18.0 - 42.0 % 10/20/2024 3:20 PM EST LABORATORY [place] 57-10 Monocytes % 8.2 1.0 - 11.0 % 10/20/2024 3:20 PM EST LABORATORY [place] 57-10 Eosinophils % 1.3 0.0 - 6.0 % 10/20/2024 3:20 PM EST LABORATORY [place] 57-10 Basophils % 0.2 0.0 - 2.0 % 10/20/2024 3:20 PM EST LABORATORY [place] 57-10 Absolute Neutrophils 5.01 1.80 - 7.70 K/uL 10/20/2024 3:20 PM EST LABORATORY [place] 57-10 Absolute Lymphocytes 2.36 1.00 - 4.80 K/ul 10/20/2024 3:20 PM EST LABORATORY [place] 57-10 Absolute Monocytes 0.67 0.00 - 1.10 K/uL 10/20/2024 3:20 PM EST LABORATORY [place] 57-10 Absolute Eosinophils 0.11 0.00 - 0.70 K/uL 10/20/2024 3:20 PM EST LABORATORY [place] 57-10 Absolute Basophils 0.02 0.00 - 0.20 K/uL 10/20/2024 3:20 PM EST LABORATORY [place] 57-10 Blood Venous blood specimen / Unknown Venipuncture / Unknown 10/20/2024 3:01 PM EST 10/20/2024 3:01 PM EST Ranulfo Schumacher DO LAB BLOOD ORDERABLES Final Res ult LABORATORY [place] [address] [place] [address] * (ABNORMAL) COMPREHENSIVE METABOLIC PANEL (10/20/2024 3:01 PM EST) BUN 17 6 - 20 mg/dL 10/20/2024 3:37 PM EST LAB[facility]ATORY [place] 57-10 CREATININE 1.3(H) 0.6 - 1.2 mg/dL 10/20/2024 3:37 PM EST LAB[facility]ORY [place] 57-10 EGFR 52(L) >=60 mL/min 10/20/2024 3:37 PM EST LAB[facility]ATORY [place] 57-10 Comment:eGFR is calculated b ased on the CKD-EPI 2020 equation. SODIUM 137 135 - 146 mmol/L 10/20/2024 3:37 PM EST LAB[facility]ORY [place] 57-10 POTASSIUM 4.0 3.5 - 5.1 mmol/L 10/20/2024 3:37 PM EST LAB[facility] [place] 57-10 CHLORIDE 100 98 - 107 mmol/L 10/20/2024 3:37 PM EST LAB[facility]ORY [place] 57-10 CO2 25 22 - 32 mmol/L 10/20/2024 3:37 PM EST LABORATORY [facility] 57-10 ANION GAP 12 7 - 15 mmol/L 10/20/2024 3:37 PM EST LABORATORY [place] 57-10 GLUCOSE 96 70 - 120 mg/dL 10/20/2024 3:37 PM EST LABORATORY [facility] 57-10 Albumin 4.0 3.8 - 5.0 g/dL 10/20/2024 3:37 PM EST LABORATORY [facility] 57-10 AST 15 10 - 50 U/L 10/20/2024 3:37 PM EST LABORATORY [facility] 57-10 Alkaline Phosphatase 88 35 - 130 U/L 10/20/2024 3:37 PM EST LABORATORY [facility] 57-10 Bilirubin, Total 0.5 <=1.2 mg/dL 10/20/2024 3:37 PM EST LABORATORY [facility] 57-10 CALCIUM 9.5 8.4 - 10.2 mg/dL 10/20/2024 3:37 PM EST LABORATORY [facility] 57-10 Protein 6.9 6.0 - 8.3 g/dL 10/20/2024 3:37 PM EST LABORATORY [facility] 57-10 ALT 18 10 - 50 U/L 10/20/2024 3:37 PM EST LABORATORY [facility] 57-10 Blood Venous blood specimen / Unknown Venipuncture / Unknown 10/20/2024 3:01 PM EST 10/20/2024 3:01 PM EST us Ranulfo Schumacher DO LAB BLOOD ORDERABLES Final Res ult LABORATORY [place] [address] [place] [id number] * (ABNORMAL) CBC (10/20/2024 3:01 PM EST) WBC 8.17 4.00 - 10.80 K/uL 10/20/2024 3:20 PM EST LABORATORY [facility] 57-10 RBC 4.57 4.50 - 5.25 M/uL 10/20/2024 3:20 PM EST LABORATORY [facility] 57-10 HGB 12.1(L) 14.0 - 16.8 g/dL 10/20/2024 3:20 PM EST LABORATORY [facility] 57-10 HCT 38.3(L) 40.0 - 48.4 % 10/20/2024 3:20 PM EST LABORATORY [place] 57-10 MCV 83.8 82.0 - 99.5 fL 10/20/2024 3:20 PM EST LABORATORY [place] 57-10 MCH 26.5 27.0 - 34.0 pg 10/20/2024 3:20 PM EST LABORATORY [place] 57-10 MCHC 31.6 32.0 - 36.0 g/dL 10/20/2024 3:20 PM EST LABORATORY [place] 57-10 RDW 15.4 11.5 - 15.5 % 10/20/2024 3:20 PM EST LABORATORY [place] 57-10 PLT 294 140 - 400 K/uL 10/20/2024 3:20 PM EST LABORATORY [place] 57-10 MPV 9.1 6.6 - 11.1 fL 10/20/2024 3:20 PM EST LABORATORY [place] 57-10 Blood Venous blood specimen / Unknown Venipuncture / Unknown 10/20/2024 3:01 PM EST 10/20/2024 3:01 PM EST us Ranulfo Schumacher DO LAB BLOOD ORDERABLES Final Res ult LABORATORY [facility] 57-10 [address] [place] [address] * CARDIOLOGY SCANNED RESULT (10/13/2024) 10/13/2024 us No Physician Data Unknown OTHER Final Result * PROCEDURE SCANNED RESULT (10/11/2024) 10/11/2024 us No Physician Data Unknown SURGERY Final Result * FLUORO INTERVENTIONAL PAIN PROCEDURE NONBILLABLE (09/30/2024 11:40 AM EST) Narrative Scheduling, Silent - 09/30/2024 11:40 AM EST This procedure will not be read by a Radiologist. Please see operative note. John Marc Ferrer RAD FLUOROSCOPY Final Result * ECHO, COMPLETE (2D), TRANS-THORACIC (09/22/2024 3:44 PM EST) Pathologist [facility] LEFT VENTRICULAR EJECTION FRACTION 60 % [facility] CARDIOLOGY 09/22/2024 3:44 PM EST Ranulfo Schumacher DO ECHOCARDIOLOGY Final Result [facility] CARDIOLOGY * PHOSPHORUS (08/30/2024 2:49 PM EST) Pathologist [facility] Phosphorus 3.2 2.5 - 4.8 mg/dL 08/30/2024 11:00 PM EST [facility] Blood Venous blood specimen / Unknown Venipuncture / Unknown 08/30/2024 2:49 PM EST 08/30/2024 2:49 PM EST Ranulfo Schumacher DO LAB BLOOD ORDERABLES Final Res ult [facility] [address] [place] [address] * ALBUMIN / CREATININE RATIO, URINE (01/11/2024 3:27 PM EDT) Pathologist [facility] Albumin, Random Urine <1.20 mg/dL 01/11/2024 11:13 PM EDT [facility] Creatinine, Random Urine 213 mg/dL 01/11/2024 11:13 PM EDT [facility] Albumin / Creatinine Ratio, Urine <6 <30 mg/g Creat 01/11/2024 11:13 PM EDT [facility] Urine Urine specimen / Unknown Non-blood Collection / Unknown 01/11/2024 3:27 PM EDT 01/11/2024 3:27 PM EDT Narrative LABORATORY C - 01/11/2024 11:13 PM EDT Normal: <30 mg/g creatinine High: 30-300 mg/g creatinine Very High: >300 mg/g creatinine Nephrotic: >2200 mg/g creatinine us Ranulfo Schumacher DO LAB URINE ORDERABLES Final Res ult [facility] [address] [place] [address] from Last 3 Months or Most Recently Relevant to Health Maintenance Advance Directives Documents on File Type Date Recorded Patient Sweet Potato Disintegrator Expl anation Power of Financial Cost Analyst 01/02/2023 Mukul banda signed on 01/02/2023 - Combined Living Will & Health Care POA Power of Financial Cost Analyst 11/27/2014 signed on 11/27/2014 Health Care POA & Living Will and "What If I had Dementia" worksheet Healthcare Agents on File Name Relationship Healthcare Agent Relationshi p Communication Mukul French Adult Child Health Care Agen t (per Health Care Power of Financial Cost Analyst document) Radhika bajwa Adult Child First Alternate Health Care Agent (per Health Care Power of Financial Cost Analyst document) Care Teams Death Surveys Coder Relationship Specialty Start Date End Date Ranulfo Schumacher, [address] [place] [address] PCP - General Internal Medicine 03/11/24
--- OUTSIDE RECORDS SUMMARY | 2024-12-17 08:19 | External Medical Summary ---
Author Name Unknown Address Unknown Organization [id number]:LABORATORY [facility] [place] - [address] [place] [address] Laboratory Report Ordering Provider Test Date Status JUDSON NASH 12/06/2024 15:50:58 Final Observation Date Value Abnormality Reference (Units ) Status Magnesium 12/06/2024 15:50:58 2.3 1.5-2.6 (m g/dL) Final Performing Location LABORATORY [facility] - [address] [address]
--- OUTSIDE RECORDS SUMMARY | 2024-12-17 08:19 | External Medical Summary ---
Author Name Unknown Address Unknown Organization [id number]:[facility] [place] [address] [facility] [address] Laboratory Report Ordering Provider Test Date Status JUDSON NASH 12/06/2024 15:50:58 Final Observation Date Value Abnormality Reference (Units ) Status SYNC LEUKOCYTES IN BLOOD BY AUTOMATED COUNT 12/06/2024 15:50:58 7.22 4.00-10.80 (K/uL) Final Segs 12/06/2024 15:50:58 52.0 40.0-75.0 (%) Final Lymphs % 12/06/2024 15:50:58 31.3 18.0-42.0 (%) Final Monos 12/06/2024 15:50:58 13.9 Above high normal 1.0-11.0 (%) Final Eosinophils 12/06/2024 15:50:58 1.8 0.0-6.0 (%) Final Basos 12/06/2024 15:50:58 0.6 0.0-2.0 (%) Final Immature Granulocyte, Percent 12/06/2024 15:50:58 0.4 0.0-2.0 (%) Final Absolute Segs 12/06/2024 15:50:58 3.76 1.80-7.70 (K/uL) Final Lymphs, absolute 12/06/2024 15:50:58 2.26 1.00-4.80 (K/ul) Final Monos, Abs 12/06/2024 15:50:58 1.00 0.00-1.10 (K/uL) Final Eos, Abs 12/06/2024 15:50:58 0.13 0.00-0.70 (K/uL) Final Basos, Abs 12/06/2024 15:50:58 0.04 0.00-0.20 (K/uL) Final Immature Granulocytes, Number 12/06/2024 15:50:58 0.03 0.00-0.20 (K/uL) Final Performing Location [facility] [place] [facility] [address] [facility] [address]
--- OUTSIDE RECORDS SUMMARY | 2024-12-17 08:19 | External Medical Summary ---
Author Name Unknown Address Unknown Organization [id number]:[facility] [place] - [facility] [place] [address] [facility] [address] Laboratory Report Ordering Provider Test Date Status JUDSON NASH 12/06/2024 15:50:58 Final Observation Date Value Abnormality Reference (Units ) Status BUN 12/06/2024 15:50:58 13 6-20 (mg/dL) Final Creatinine 12/06/2024 15:50:58 1.3 Above high normal 0.6-1.2 (mg/dL) Final Glomerular filtration rate/1.73 sq M.predicted [Volume Rate/Area] in Serum, Plasma or Blood by Creatinine-based formula (CKD-EPI) 12/06/2024 15:50:58 52 Below low normal >=60 (mL/min) Final eGFR is calculated based on the CKD-EPI 2020 equation. Sodium 12/06/2024 15:50:58 137 135-146 (m mol/L) Final Potassium 12/06/2024 15:50:58 5.1 3.5-5.1 (m mol/L) Final Cl 12/06/2024 15:50:58 102 98-107 (mm ol/L) Final CO2 12/06/2024 15:50:58 25 22-32 (mmo l/L) Final Anion gap 12/06/2024 15:50:58 10 7-15 (mmol /L) Final Glucose 12/06/2024 15:50:58 98 70-120 (mg /dL) Final Calcium 12/06/2024 15:50:58 9.6 8.4-10.2 ( mg/dL) Final Performing Location [facility] [place] - [address] [place] [address]
--- OUTSIDE RECORDS SUMMARY | 2024-12-17 08:19 | External Medical Summary ---
Author Name Unknown Address Unknown Organization [id number]:[facility] [place] [facility] [address] [facility] [address] Laboratory Report Ordering Provider Test Date Status JDUSON NASH 12/06/2024 15:50:58 Final Observation Date Value Abnormality Reference (Units ) Status WBC, Total 12/06/2024 15:50:58 7.22 4.00-10.80 (K/uL) Final RBC 12/06/2024 15:50:58 4.61 4.50-5.25 (M/uL) Final Hemoglobin 12/06/2024 15:50:58 12.1 Below low normal 14.0-16.8 (g/dL) Final HCT 12/06/2024 15:50:58 38.9 Below low normal 40.0-48.4 (%) Final MCV 12/06/2024 15:50:58 84.4 82.0-99.5 (fL) Final MCH 12/06/2024 15:50:58 26.2 27.0-34.0 (pg) Final MCHC 12/06/2024 15:50:58 31.1 32.0-36.0 (g/dL) Final RDW 12/06/2024 15:50:58 15.9 11.5-15.5 (%) Final Platelets 12/06/2024 15:50:58 354 140-400 (K/uL) Final MPV 12/06/2024 15:50:58 10.1 6.6-11.1 (fL) Final Nucleated erythrocytes/100 leukocytes [Ratio] in Blood by Automated count 12/06/2024 15:50:58 0 <=0 (/100 WBCs) Final Performing Location [facility] [place] [address] [facility] [address]
--- OUTSIDE RECORDS SUMMARY | 2024-12-17 08:19 | External Medical Summary | Summary of Care ---
Author Name Unknown Organization [facility] Address [address] [place] [address] Phone [phone] Care Team Providers Care Groover And Striper Operator Name Role Phone Ranulfo Schumacher DO Primary Care Provider [phone] Reason for Visit * Reason Onset Date Comments Test Results 12/07/2024 Encounter Details Date Type Department Care Team (Late st Contact Info) Description 12/07/2024 Telephone Family Practice [address] [place] [address] [address] [place] [address] Ranulfo Schumacher DO [address] [place] [address] Test Results Allergies Active Allergy Reactions Criticality Noted Date Comments Oxycodone 10/11/2020 caused heart to stopped--per patient documented as of this encounter (statuses as of 12/07/2024) Medications ASPIRIN EC 81 MG PO TBEC Take 1 Tablet by mouth every evening. Active PREVIDENT 5000 BOOSTER PLUS 1.1 % DT PSTE [place] onto teeth. Special tooth paste 5 Active [...] 200 Tablet 1 11/17/2024 6:44 AM EST Active Benzonatate 100 MG Oral Capsule (Tessalnahun Sanon) Take 1 Capsule by mouth 3 times a day as needed for Cough. Active documented as of this encounter (statuses as of 12/07/2024) Active Problems Problem Noted Date Diagnosed Date [...] as of this encounter (statuses as of 12/07/2024) Resolved Problems Problem Noted Date Diagnosed Date [...] as of this encounter (statuses as of 12/07/2024) Immunizations Name Administration Dates Next Due COVID-19 mRNA, LNP-s, No Pre serve, 2-Dose Series (Moderna) 07/17/2021,11/28/2020,11/01/2020 COVID-19, LNP-s, No Preserve , Cheng-sucrose, Ages 12+ (Rockerbox) 05/13/2022 COVID-19, MRNA-LNP, PF, 30 M CG/0.3 mL, 12 YRS AND ABOVE, IM (PFIZER-Comirnaty) 09/07/2024,07/13/2023 Covid-19, Mrna, Lnp-s, Pf, B ivalent, 30 Mcg, IM, 12 yrs and above (Pfizer) 10/14/2022 Pneumococcal Conjugate Vacc, 13 Valent (Prevnar) 10/25/2015,05/12/2015 Pneumococcal Conjugate Vacci ne, 20-valent ([id number]) 09/07/2024 Pneumococcal Conjugate Vacci ne, 7 Valent [...] encounter Miscellaneous Notes * Telephone Encounter - Zahira Pedroza LPN - 12/07/2024 2:32 PM EDT Phone call to listed number for patient and son, Mukul, answered and he said he takes messages and Igave message from and her verbalized understanding and wrote down name of med to start * Telephone Encounter - Zahira Pedroza LPN - 12/07/2024 2:30 PM EDT ----- Message from Ranulfo Schumacher DO sent at 12/07/2024 8:03 AM EDT ----- Anemia has improved. Iron level is low. All other labs are stable. Start OTC Vitron C 65 mg daily documented in this encounter Plan of Treatment Upcoming Encounters Date Type Department Care Team (Late st Contact Info) Description 01/13/2025 2:20 PM EDT Office Visit Family Practice [address] [place] [address] [place] [address] Ranulfo Schumacher DO [address] [place] [address] Scheduled Procedures Name Priority Associated Diagnoses Date/Ti me INJECTION SPINE LUMBAR OR SACRAL Spinal stenosis of lumbar region without neurogenic claudication Health Maintenance Due Date Last Done Comments Adult Wellness Visit 09/10/2024 09/10/2023, 05/31/20 21 Albumin/Creatinine Ratio 01/10/2025 024, 03/27/2023, 05/26/2022, Additional history exists COVID-19 Vaccine (8 - Moderna risk 2023- season) 2025 09/07/2024, 07/13/2023, 10/14/2022, Additional history exists CKD PHOS USE SMARTSET 54641 08/30/2025 12/11/2023, 09/22/2023, 09/12/2022, Additional history exists Depression Screening 08/31/2025 08/31/2024, 08/30/20 24 CKD HGB USE SMARTSET 83305 12/06/202512/06, 12/06/2024, 10/20/2024, Additional history exists DTap/Tdap [...] this encounter Medical Devices Implanted Type Area Vermin Exterminator Device Identifier Shelf Expiration Date Model / Serial / Lot Plug Mesh Small Hernia - [id number] Implanted:Qty: 1 on 12/28/2017 by Jorge Luis Krause MD at [facility] Right: Groin CR BARD : DAVOL 02/25/2019 [id number] / / [id number] documented as of this encounter Advance Directives Documents on File Type Date Recorded 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 p Communication Mukul Gillian Adult Child Health Care Agen t (per Health Care Power of Business Teacher document) Radhika bajwa Adult Child First Alternate Health Care Agent (per Health Care Power of Business Teacher document) Care Teams Groover And Striper Operator Relationship Specialty Start Date End Date Ranulfo Schumacher DO [address] [facility] [place] [address] PCP - General Internal Medicine 03/11/24 documented as of this encounter
--- OUTSIDE RECORDS SUMMARY | 2024-12-17 08:19 | External Medical Summary | Summary of Care ---
Author Name Unknown Organization [facility] Address [address] [place] [address] Phone [phone] Care Team Providers Care Senior Analyst Market Intelligence Name Role Phone Ranulfo Schumacher DO Primary Care Provider [phone] Reason for Visit * Reason Onset Date Comments Precision Instrument Maker And Repairer Documentation 12/01/2024 My CareChoices/Advance Care Planning Encounter Details Date Type Department Care Team (Late st Contact Info) Description 12/01/2024 Telephone Care Coordination [address] [place] [address] Sandrine Theodore, [facility] Precision Instrument Maker And Repairer Documentation (MyCareChoic... Allergies Active Allergy Reactions Criticality Noted Date Comments Oxycodone 10/11/2020 caused heart to stopped--per patient documented as of this encounter (statuses as of 12/01/2024) Medications ASPIRIN EC 81 MG PO TBEC Take 1 Tablet by mouth every evening. Active MULTI VITAMIN/MINERALS PO TABS Take 1 Tablet by mouth in the morning. Active PREVIDENT 5000 BOOSTER PLUS 1.1 % DT PSTE [place] onto teeth. Special tooth paste 5 Active [...] as of this encounter (statuses as of 12/01/2024) Active Problems Problem Noted Date Diagnosed Date [...] (01/27/2023 10:32 AM EDT): Rate controlled -continue Eliquis Coreg Assessment & Plan (12/10/2022 6:20 PM [...] as of this encounter (statuses as of 12/01/2024) Resolved Problems Problem Noted Date Diagnosed Date [...] as of this encounter (statuses as of 12/01/2024) Immunizations Name Administration Dates Next Due COVID-19 mRNA, LNP-s, No Pre serve, 2-Dose Series (Moderna) 07/17/2021,11/28/2020,11/01/2020 COVID-19, LNP-s, No Preserve , Cheng-sucrose, Ages 12+ (Pfizer) 05/13/2022 COVID-19, MRNA-LNP, PF, 30 M CG/0.3 mL, 12 YRS AND ABOVE, IM [facility] 09/07/2024,07/13/2023 Covid-19, Mrna, Lnp-s, Pf, B ivalent, 30 Mcg, IM, 12 yrs and above (Pfizer) 10/14/2022 Pneumococcal Conjugate Vacc, 13 Valent (Prevnar) 10/25/2015,05/12/2015 Pneumococcal Conjugate Vacci ne, 20-valent ([id number]) 09/07/2024 Pneumococcal Conjugate Vacci ne, 7 Valent [...] Telephone Encounter - Sandrine Theodore LCSW - 12/01/2024 8:35 AM EST Reminder: A serious illness conversation alert will fire at the upcoming provider scheduled visit, 12/06/24 Conversation metrics needed in ACP note: Understanding of Illness Understanding of Prognosis Hopes Fears Surrogate Decision Maker - Combined LW & HC POA signed 01/02/2023 - please review to be sure aligns with current preferences POLST - if appropriate, please complete. If Pt opts for DNR, be sure to also prepare OOH DNR. Kiesha reviewed documents on 11/29/24 - if reviewed by Dr. Schumacher on 12/06, please document your reviewin the "Document Review" section of ACP Activity Reminder serious illness conversation needs to be entered in the new ACP activity flowsheet rows 10/11/2024. [facility] you, [facility] [phone] documented in this encounter Plan of Treatment Upcoming Encounters Date Type Department Care Team (Late st Contact Info) Description 12/06/2024 2:30 PM EDT Nurse Only Family Practice [address] [facility] [address] [place] [id number] College, Nurse Fam Prac [address] [place] [address] 12/06/2024 3:00 PM EDT Office Visit Family Practice [address] [facility] [address] [place] [address] Ranulfo Schumacher, [address] [place] [address] Scheduled Procedures Name Priority Associated Diagnoses Date/Ti me INJECTION SPINE LUMBAR OR SACRAL Spinal stenosis of lumbar region without neurogenic claudication Health Maintenance Due Date Last Done Comments Adult Wellness Visit 09/10/2024 09/10/2023, 05/31/20 21 Albumin/Creatinine Ratio 01/10/2025 024, 03/27/2023, 05/26/2022, Additional history exists COVID-19 Vaccine (8 - Moderna risk 2023- season) 2025 09/07/2024, 07/13/2023, 10/14/2022, Additional history exists CKD PHOS USE SMARTSET 73636 08/30/2025 12/11/2023, 09/22/2023, 09/12/2022, Additional history exists Depression Screening 08/31/2025 08/31/2024, 08/30/20 24 CKD HGB USE SMARTSET 01468 10/20/202510/20, 10/20/2024, 08/30/2024, Additional history exists DTap/Tdap [...] this encounter Medical Devices Implanted Type Area State Pilot Device Identifier Shelf Expiration Date Model / Serial / Lot Plug Mesh Small Hernia - [id number] Implanted:Qty: 1 on 12/28/2017 by Jorge Luis Krause MD at OR [facility] Right: Groin CR BARD : DAVOL 02/25/2019 [id number] / / [id number] documented as of this encounter Advance Directives Documents on File Type Date Recorded 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 Power of Dinkey Engine Mechanic 01/02/2023 Mukul banda signed on 01/02/2023 - Combined Living Will & Health Care POA Power of Dinkey Engine Mechanic 11/27/2014 signed on 11/27/2014 Health Care POA & Living Will and "What If I had Dementia" worksheet Healthcare Agents on File Name Relationship Healthcare Agent Relationshi p Communication Mukul French Adult Child Health Care Agen t (per Health Care Power of Dinkey Engine Mechanic document) Radhika bajwa Adult Child First Alternate Health Care Agent (per Health Care Power of Dinkey Engine Mechanic document) Care Teams Senior Analyst Market Intelligence Relationship Specialty Start Date End Date Ranulfo Schumacher DO [address] [place] [address] PCP - General Internal Medicine 03/11/24 documented as of this encounter
--- OUTSIDE RECORDS SUMMARY | 2024-12-17 08:19 | External Medical Summary | Summary of Care ---
Author Name Unknown Organization [facility] Address [address] [place] [address] Phone [phone] Care Team Providers Care Warranty Clerk Name Role Phone Ranulfo Schumacher DO Primary Care Provider [phone] Reason for Visit * Reason Onset Date Comments Follow Up Hospital Follow-Up Joint Pain LT knee Ear Flush 12/06/2024 Hospital Follow-Up 12/06/2024 Encounter Details Date Type Department Care Team (Latest Contact Info) Description 12/06/2024 3:00 PM EDT Office Visit Family Practice [address] [place] [address] [address] [place] [id number] Ranulfo Schumacher DO [address] [place] [address] Mixed Alzheimer's and vascular dementia (HCC)*; Norovirus; Volume depletion; Anemia, unspecified type; STACEY (generalized anxiety disorder); Gastroesophageal reflux disease without esophagitis; History of lung cancer; History of prostate cancer; History of pulmonary embolism; Hypertensive kidney disease with stage 3a chronic kidney disease (HCC); Degeneration of intervertebral disc of lumbar region with discogenic back pain; Middle cerebral artery stenosis, right; PAF (paroxysmal atrial fibrillation) ([facility]); Pure hypercholesterolemia; Impacted cerumen, bilateral; Hospital discharge follow-up Allergies Active Allergy Reactions Criticality Noted Date Comments Oxycodone 10/11/2020 caused heart to stopped--per patient documented as of this encounter (statuses as of 12/07/2024) Medications ASPIRIN EC 81 MG PO TBEC Take 1 Tablet by mouth every evening. Active PREVIDENT 5000 BOOSTER PLUS 1.1 % DT PSTE [place] onto teeth. Special tooth paste 09/28/19 15 [...] 25 Active Benzonatate 100 MG Oral Capsule (Magdi Sanon) Take 1 Capsule by mouth 3 times a day as needed for Cough. Active MULTI VITAMIN/MINERALS PO TABS Take 1 Tablet by mouth in the morning. 025 Discontin ued(Medic ation/Dos e Changed) Magnesium Oxide 400 (240 Mg) MG Oral Tablet Take 1 Tablet by mouth at bedtime. 025 Discontin ued(Medic ation List Clean Up) Atorvastatin Calcium 40 MG Oral Tablet (Lipitor)Indicat ions:Dyslipidemi a, goal LDL below 130 TAKE ONE TABLET BY MOUTH EVERY DAY 100 Tablet 1 10/21/2024 3:18 PM EST 10/21/19 25 03/11/2 025 Discontin ued(Medic ation List Clean Up) [...] CG/0.3 mL, 12 YRS AND ABOVE, IM ([employer]) 09/07/2024,07/13/2023 Covid-19, Mrna, Lnp-s, Pf, B ivalent, 30 Mcg, IM, 12 yrs and above (Pfizer) 10/14/2022 Pneumococcal Conjugate Vacc, 13 Valent (Prevnar) 10/25/2015,05/12/2015 Pneumococcal Conjugate Vacci ne, 20-valent ([id number]) 09/07/2024 Pneumococcal Conjugate Vacci ne, 7 Valent [...] No 11/29/2024 Does the household have a [facility] source [facility]? (Household - for ages [...] 12/06/2024 2:16 PM ED T Respiratory Rate - - Oxygen Saturation 96% 12/06/2024 2:16 PM EDT Inhaled Oxygen Concentration - - Weight 68.6 kg (151 lb 3.2 oz) 12/06/2024 2:16 P M EDT Height 159 cm (5' 2.6") 12/06/2024 2:16 PM EDT Body Mass Index 27.13 12/06/2024 2:16 PM EDT documented in this encounter Progress Notes * Ranulfo Schumacher, DO - 12/06/2024 11:07 PM EDT SUBJECTIVE: Mor French is a 84 year old male. Chief Complaint Patient presents with Follow Up Hospital Follow-Up Joint Pain LT knee Ear Flush Hospital Follow-Up Recent Admission: Patient was recently admitted to [facility]. The date of discharge was 11/28/2024. Discharge report received and reviewed. HPI: Patient is [...] hospital follow up. The patient was admitted to [facility] after syncopal episode on 11/22/2024. The patient had diarrhea and vomiting as well. Patient had Norovirus and was treated with supportive care. Anemia was present as well. Family did not wish for patient to have Colonoscopy or EGD due to advanced dementia. The patient was brought to the visit by his son Mukul, and daughter Radhika who have been his 24 hour a day caregivers. The patient has rapidly worsening memory over the last 3 months. The patient is no longer able to feed himself or dress himself. Appetite has decreased significantly. The patient is staying up all night and wandering in the house. He sleeps during the day. Weight i s down and patient is not able to provide history. Patient Active Problem List Diagnosis History [...] Take 1 Tablet by mouth every evening. Tylenol 325 MG Oral Capsule (Acetaminophen) Take 650 mg by mouth every 6 hours as needed for Pain, Moderate (up to 3000 units per day). Apixaban 5 MG Oral Tablet (Eliquis) TAKE ONE TABLET BY MOUTH IN THE MORNING AND TAKE ONE TABLET BY MOUTH BEFORE BEDTIME (Patient taking differently: Take 1 Tablet by mouth in the morning and 1 Tabletbefore bedtime.) 200 Tablet 3 Gabapentin 100 MG Oral Capsule (Neurontin) TAKE ONE CAPSULE BY MOUTH TWICE A DAY -- IN THE MORNING AND IN THE EVENING 200 Capsule 3 Carvedilol 6.25 MG Oral Tablet (Coreg) TAKE ONE TABLET BY MOUTH EVERY MORNING (Patient taking differently: Take 1 Tablet by mouth every evening.) 100 Tablet 3 Albuterol Sulfate HFA 108 (90 Base) MCG/ACT Inhalation Aerosol Solution Inhale 2 Puffs by mouth every 6 hours as needed for Shortness of Breath. 18 g 5 busPIRone HCl 5 MG Oral Tablet (Buspar) Take 1 Tablet by mouth in the morning and 1 Tablet at noon and 1 Tablet before bedtime. 90 Tablet 3 Citalopram Hydrobromide 20 MG Oral Tablet (CeleXA) TAKE ONE TABLET BY MOUTH DAILY IN THE MORNING. 100 Tablet 3 Pantoprazole Sodium 40 MG Oral Tablet Delayed Release (Protonix) TAKE ONE TABLET BY MOUTH IN THE MORNING (Patient taking differently: Take 1 Tablet by mouth in the morning and 1 Tablet before bedtime.) 100 Tablet 1 Meclizine HCl 12.5 MG Oral Tablet (Antivert) Take 1 Tablet by mouth 2 times a day as needed for Dizziness. 200 Tablet 1 Benzonatate 100 MG Oral Capsule (Tessalon Perles) Take 1 Capsule by mouth 3 times a day as needed for Cough. PREVIDENT 5000 BOOSTER PLUS 1.1 % DT PSTE [place] onto teeth. Special tooth paste (Patient not taking: Reported on 12/06/2024) Meclizine HCl 12.5 MG Oral Tablet (Antivert) take one tablet by mouth twice daily 200 Tablet 1 Rollator Ultra-Light Use daily for adl's and to prevent falls. 1 Each 0 HYDROcodone-Acetaminophen 5-325 MG Oral Tablet Take 1 Tablet by mouth every 6 hours as needed for Pain, Mild. (Patient not taking: Reported on 12/06/2024) 45 Tablet 0 No current facility-administered medications for this visit. Current and discharge medications have been reconciled. Review of patient's allergies indicates: Allergen Reactions Oxycodone caused heart to stopped--per patient OBJECTIVE: BP 124/74 (BP Site: Left Arm, BP Position: Sitting, BP Cuff Size: Large) | Pulse 93 | Temp 97.7 F(36.5 C) (Tympanic) | Ht 5' 2.6" (1.59 m) | Wt 151 lb 3.2 oz (68.6 kg) | SpO2 96% | BMI 27.13 kg/m | BSA 1.74 m REVIEW OF SYSTEMS: Review of Systems Unable to perform ROS: Dementia PHYSICAL EXAM: BP 124/74 (BP Site: Left Arm, BP Position: Sitting, BP Cuff Size: Large) | Pulse 93 | Temp 97.7 F(36.5 C) (Tympanic) | Ht 5' 2.6" (1.59 m) | Wt 151 lb 3.2 oz (68.6 kg) | SpO2 96% | BMI 27.13 kg/m | BSA 1.74 m Physical Exam Vitals and nursing note reviewed. Constitutional: General: He is not in acute distress. Appearance: He is not toxic-appearing. Comments: Oriented to self HENT: Head: Normocephalic and atraumatic. Right Ear: There is impacted cerumen. Left Ear: There is impacted cerumen. Cardiovascular: Rate and Rhythm: Normal rate and [...] edema. Left lower leg: No edema. Neurological: Motor: Weakness present. Gait: Gait abnormal. Comments: Memory has worsened significantly Psychiatric: Mood and Affect: Mood normal. Cognition and Memory: Cognition is impaired. Memory is impaired. Judgment: Judgment is inappropriate. ASSESSMENT/PLAN Mixed Alzheimer's and vascular dementia (HCC) (Primary) Dementia is severe Patient unable to be home alone He is unable to dress and groom himself without assistance He needs assistance with obtaining meals Day and night reversed Family is considering placement at [facility] Patient's is a resident of [facility] Family wishes for patient to be DNR and POLST completed today Norovirus Resolved Volume depletion Resolved Anemia, unspecified type - CBC WITH WBC DIFFERENTIAL; Future; Expected date: 12/06/2024 - IRON SCREEN, INCLUDING TIBC; Future; Expected date: 12/06/2024 - FERRITIN; Future; Expected date: 12/06/2024 - CBC WITH WBC DIFFERENTIAL - IRON SCREEN, INCLUDING TIBC - FERRITIN STACEY (generalized anxiety disorder) Continue Citalopram and Buspirone Gastroesophageal reflux disease without esophagitis Continue Pantoprazole History of lung cancer History of prostate cancer History of pulmonary embolism Hypertensive kidney disease with stage 3a chronic kidney disease (HCC) - BASIC METABOLIC PANEL; Future; Expected date: 12/06/2024 - MAGNESIUM; Future; Expected date: 12/06/2024 - BASIC METABOLIC PANEL - MAGNESIUM Continue Carvedilol Stop Magnesium Degeneration of intervertebral disc of lumbar region with discogenic back pain Continue Gabapentin Middle cerebral artery stenosis, right PAF (paroxysmal atrial fibrillation) (HCC) Continue Apixaban, and Carvedilol Pure hypercholesterolemia Stop Atorvastatin Impacted cerumen, bilateral - REMOVAL IMPACTED CERUMEN IRRIGATION/LAVAGE, UNILAT Hospital discharge follow-up - DISCH MED RECON CUR MED LIS I spent a total of 40-54 minutes (exact time 55 mins) on the date of service in preparation, delivery, and documentation of the care provided to Mor French excluding any time spent in the performance of separately billed services or time spent by another provider/QHP. Follow Up: Return in about 1 month (around 01/06/2025), or if symptoms worsen or fail to improve. Ranulfo Schumacher DO * Jocy Maharaj LPN - 12/06/2024 3:47 PM EDT Ear Irrigation Procedure: Irrigation Solution: Up to 200 ml of solution may be instilled with one Procedure Solution Used: Water 180 ml/ Hydrogen Peroxide 20 ml (Mixed) Ear(s) Irrigated: Bilateral Response: Clear Fluid Returned, Particulate Returned, and Patient Tolerated Well - clear fluid fromright ear, small amount cerumen from left ear. Jocy Maharaj LPN * Joyce Evans RT (R) - 12/06/2024 2:20 PM EDT Chief Complaint Patient presents with Follow Up Hospital Follow-Up Joint Pain LT knee Wants to discuss: "Dementia stages, hospice, ears (both may have wax), OT and PT, and center care/ memory care. " documented in this encounter Nursing Notes * Jocy Maharaj LPN - 12/06/2024 2:29 PM EDT Asking about stopping multivitamin d/t size of pill and number of pills. Also asking if magnesium could be stopped. documented in this encounter Plan of Treatment Upcoming Encounters Date Type Department Care Team (Late st Contact Info) Description 01/13/2025 2:20 PM EDT Office Visit Family Practice [address], [place] [address] [place] [phone] Ranulfo Schumacher, [address] [place] [address] Scheduled Orders Name Type Priority Associated Diagnoses Orde r Schedule REMOVAL IMPACTED CERUMEN IRRIGATION/LAVAGE, UNILAT Procedures Routine Impacted cerumen, bilateral Ordered: 12/06/2024 Scheduled Procedures Name Priority Associated Diagnoses Date/Ti me INJECTION SPINE LUMBAR OR SACRAL Spinal stenosis of lumbar region without neurogenic claudication Health Maintenance Due Date Last Done Comments Adult Wellness Visit 09/10/2024 09/10/2023, 05/31/20 21 Albumin/Creatinine Ratio 01/10/202501/10/ 024, 03/27/2023, 05/26/2022, Additional history exists COVID-19 Vaccine (8 - Moderna risk season) 2025 09/07/2024, 07/13/2023, 10/14/2022, Additional history exists CKD PHOS USE SMARTSET 03278 08/30/2025 12/0 11/2023, 09/22/2023, 09/12/2022, Additional history exists Depression Screening 08/31/2025 08/31/2024, 08/30/20 24 CKD HGB USE SMARTSET 88012 12/06/202512/06, 12/06/2024, 10/20/2024, Additional history exists DTap/Tdap [...] this encounter Medical Devices Implanted Type Area Telecommunications Administrator Device Identifier Shelf Expiration Date Model / Serial / Lot Plug Mesh Small Hernia - [id number] Implanted:Qty: 1 on 12/28/2017 by Jorge Luis Krause MD at [facility] Right: Groin CR BARD : DAVOL 02/25/2019 [id number] / / [id number] documented as of this encounter Procedures Procedure Name Priority Date/Time Associated Diagnosis Comments DIFFERENTIAL, AUTOMATED Routine 12/06/2024 3:50 PM EDT Anemia, unspecified type BASIC METABOLIC PANEL Routine 12/06/2024 3:50 PM EDT Hypertensive kidney disease with stage 3a chronic kidney disease (HCC) IRON SCREEN, INCLUDING TIBC Routine 12/06/2024 3:50 PM EDT Anemia, unspecified type CBC Routine 12/06/2024 3:50 PM EDT Anemia, unspecified type CBC Routine 12/06/2024 3:50 PM EDT Anemia, unspecified type MAGNESIUM Routine 12/06/2024 3:50 PM EDT Hypertensive kidney disease with stage 3a chronic kidney disease (HCC) FERRITIN Routine 12/06/2024 3:50 PM EDT Anemia, unspecified type documented in this encounter Results * (ABNORMAL) DIFFERENTIAL, AUTOMATED (12/06/2024 3:50 PM EDT) WBC 7.22 4.00 - 10.80 K/uL 12/06/2024 11:56 PM EDT [facility] Neutrophils % 52.0 40.0 - 75.0 % 12/06/2024 11:56 PM EDT [facility] Lymphocytes % 31.3 18.0 - 42.0 % 12/06/2024 11:56 PM EDT [facility] Monocytes % 13.9(H) 1.0 - 11.0 % 12/06/2024 11:56 PM EDT [facility] Eosinophils % 1.8 0.0 - 6.0 % 12/06/2024 11:56 PM EDT [facility] Basophils % 0.6 0.0 - 2.0 % 12/06/2024 11:56 PM EDT [facility] Immature Granulocytes % 0.4 0.0 - 2.0 % 12/06/2024 11:56 PM EDT [facility] Absolute Neutrophils 3.76 1.80 - 7.70 K/uL 12/06/2024 11:56 PM EDT [facility] Absolute Lymphocytes 2.26 1.00 - 4.80 K/ul 12/06/2024 11:56 PM EDT [facility] Absolute Monocytes 1.00 0.00 - 1.10 K/uL 12/06/2024 11:56 PM EDT [facility] Absolute Eosinophils 0.13 0.00 - 0.70 K/uL 12/06/2024 11:56 PM EDT [facility] Absolute Basophils 0.04 0.00 - 0.20 K/uL 12/06/2024 11:56 PM EDT [facility] Absolute Immature Granulocytes 0.03 0.00 - 0.20 K/uL 12/06/2024 11:56 PM EDT [facility] Blood Venous blood specimen / Unknown Venipuncture / Unknown 12/06/2024 3:50 PM EDT 12/06/2024 3:50 PM EDT us Ranulfo Schumacher DO LAB BLOOD ORDERABLES Final Res ult [facility] [address] [place] [address] * (ABNORMAL) CBC (12/06/2024 3:50 PM EDT) WBC 7.22 4.00 - 10.80 K/uL 12/06/2024 11:56 PM EDT [facility] RBC 4.61 4.50 - 5.25 M/uL 12/06/2024 11:56 PM EDT [facility] HGB 12.1(L) 14.0 - 16.8 g/dL 12/06/2024 11:56 PM EDT [facility] HCT 38.9(L) 40.0 - 48.4 % 12/06/2024 11:56 PM EDT [facility] MCV 84.4 82.0 - 99.5 fL 12/06/2024 11:56 PM EDT [facility] MCH 26.2 27.0 - 34.0 pg 12/06/2024 11:56 PM EDT [facility] MCHC 31.1 32.0 - 36.0 g/dL 12/06/2024 11:56 PM EDT [facility] RDW 15.9 11.5 - 15.5 % 12/06/2024 11:56 PM EDT [facility] PLT 354 140 - 400 K/uL 12/06/2024 11:56 PM EDT [facility] MPV 10.1 6.6 - 11.1 fL 12/06/2024 11:56 PM EDT [facility] nRBCs 0 <=0 /100 WBCs 12/06/2024 11:56 PM EDT [facility] Blood Venous blood specimen / Unknown Venipuncture / Unknown 12/06/2024 3:50 PM EDT 12/06/2024 3:50 PM EDT Ranulfo Schumacher DO LAB BLOOD ORDERABLES Final Res ult Performing Organization Address [facility]/ZIP Co de Phone Number [facility]ATORY [facility] [address] [place] [address] * MAGNESIUM (12/06/2024 3:50 PM EDT) Magnesium 2.3 1.5 - 2.6 mg/dL 12/06/2024 10:46 PM EDT [facility] Blood Venous blood specimen / Unknown Venipuncture / Unknown 12/06/2024 3:50 PM EDT 12/06/2024 3:50 PM EDT Ranulfo Schumacher DO LAB BLOOD ORDERABLES Final Res ult Performing Organization Address [facility] de Phone Number [facility]ATORY [facility] [address] [place] [address] * (ABNORMAL) BASIC METABOLIC PANEL (12/06/2024 3:50 PM EDT) BUN 13 6 - 20 mg/dL 12/06/2024 10:46 PM EDT [facility] CREATININE 1.3(H) 0.6 - 1.2 mg/dL 12/06/2024 10:46 PM EDT [facility] EGFR 52(L) >=60 mL/min 12/06/2024 10:46 PM EDT LABORATORY C Comment:eGFR is calculated b ased on the CKD-EPI 2020 equation. SODIUM 137 135 - 146 mmol/L 12/06/2024 10:46 PM EDT [facility] POTASSIUM 5.1 3.5 - 5.1 mmol/L 12/06/2024 10:46 PM EDT [facility] CHLORIDE 102 98 - 107 mmol/L 12/06/2024 10:46 PM EDT [facility] CO2 25 22 - 32 mmol/L 12/06/2024 10:46 PM EDT [facility] ANION GAP 10 7 - 15 mmol/L 12/06/2024 10:46 PM EDT [facility] GLUCOSE 98 70 - 120 mg/dL 12/06/2024 10:46 PM EDT [facility] CALCIUM 9.6 8.4 - 10.2 mg/dL 12/06/2024 10:46 PM EDT LABORATORY C Blood Venous blood specimen / Unknown Venipuncture / Unknown 12/06/2024 3:50 PM EDT 12/06/2024 3:50 PM EDT Ranulfo Schumacher DO LAB BLOOD ORDERABLES Final Res ult Performing Organization Address City/[facility]/ZIP Co de Phone Number LABORATORY [address] [address] * (ABNORMAL) FERRITIN (12/06/2024 3:50 PM EDT) Ferritin 24(L) 30 - 400 ng/mL 12/06/2024 11:11 PM EDT [facility] Blood Venous blood specimen / Unknown Venipuncture / Unknown 12/06/2024 3:50 PM EDT 12/06/2024 3:50 PM EDT Ranulfo Schumacher DO LAB BLOOD ORDERABLES Final Res ult Performing Organization Address [facility]/ZIP Co de Phone Number LABORATORY [address] [address] * (ABNORMAL) IRON SCREEN, INCLUDING TIBC (12/06/2024 3:50 PM EDT) Iron 44(L) 45 - 176 ug/dL 12/06/2024 10:46 PM EDT [facility] Iron Binding Capacity 338 250 - 425 ug/dL 12/06/2024 10:46 PM EDT [facility] Transferrin Saturation Percent 13(L) 15 - 55 % 12/06/2024 10:46 PM EDT [facility] Blood Venous blood specimen / Unknown Venipuncture / Unknown 12/06/2024 3:50 PM EDT 12/06/2024 3:50 PM EDT us Ranulfo Schumacher DO LAB BLOOD ORDERABLES Final Res ult [facility] [address] [place] [address] documented in this encounter Visit Diagnoses Diagnosis [...] of pulmonary embolism Vertigo Dizziness and giddiness Mixed Alzheimer's and vascular dementia (HCC)- Primary Alzheimer's disease Norovirus Enteritis due to [place] virus Volume depletion Volume depletion, unspecified Anemia, unspecified type STACEY (generalized anxiety disorder) Generalized anxiety disorder Gastroesophageal reflux disease without esophagitis Esophageal reflux History of lung cancer Personal history of malignant neoplasm of bronchus and lung History of prostate cancer Personal history of malignant neoplasm of prostate History of pulmonary embolism Personal history of pulmonary embolism Hypertensive kidney disease with stage 3a chronic kidney disease (HCC) 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, right PAF (paroxysmal atrial fibrillation) (HCC) Atrial fibrillation Pure hypercholesterolemia Impacted cerumen, bilateral Hospital discharge follow-up Other follow-up examination documented in this encounter Advance Directives Documents on File Type Date Recorded Patient Breaster Expl anation Power of Clinical Dermatologist 01/02/2023 Mukul banda signed on 01/02/2023 - Combined Living Will & Health Care POA Power of Clinical Dermatologist 11/27/2014 signed on 11/27/2014 Health Care POA & Living Will and "What If I had Dementia" worksheet Healthcare Agents on File Name Relationship Healthcare Agent Relationshi p Communication Mukul French Adult Child Health Care Agen t (per Health Care Power of Clinical Dermatologist document) Radhika bajwa Adult Child First Alternate Health Care Agent (per Health Care Power of Clinical Dermatologist document) Care Teams Warranty Clerk Relationship Specialty Start Date End Date Ranulfo Schumacher DO [address] [place] [address] PCP - General Internal Medicine 03/11/24 documented as of this encounter
--- OUTSIDE RECORDS SUMMARY | 2024-12-17 08:19 | External Medical Summary ---
Author Name Unknown Address Unknown Organization K01:[facility]ATORY [facility] [place] [address] [place] [address] Laboratory Report Ordering Provider Test Date Status JUDSON NASH 12/06/2024 15:50:58 Final Observation Date Value Abnormality Reference (Units ) Status Ferritin 12/06/2024 15:50:58 24 Below low normal 30- 400 (ng/mL) Final Performing Location [facility] - [address] [place] [address]
--- OUTSIDE RECORDS SUMMARY | 2024-12-17 08:19 | External Medical Summary | Summary of Care ---
Author Name Unknown Organization [facility] Address [address] [place] [address] Phone [phone] Care Team Providers Care Mill Beam Fitter Name Role Phone Ranulfo Schumacher DO Primary Care Provider [phone] Encounter Details Date Type Department Care Team (Late st Contact Info) Description 12/12/2024 1:30 PM EDT Scheduled Telephone Care Coordination and Integration [address] [place] [address] Liat Gamez, Community Health Tread Builder [address] [place] [address] Allergies Active Allergy Reactions Criticality Noted Date Comments Oxycodone 10/11/2020 caused heart to stopped--per patient documented as of this encounter (statuses as of 12/12/2024) Medications ASPIRIN EC 81 MG PO TBEC Take 1 Tablet by mouth every evening. Active PREVIDENT 5000 BOOSTER PLUS 1.1 % DT PSTE [place] onto teeth. Special tooth paste 5 Active [...] as of this encounter (statuses as of 12/12/2024) Active Problems Problem Noted Date Diagnosed Date [...] as of this encounter (statuses as of 12/12/2024) Resolved Problems Problem Noted Date Diagnosed Date [...] as of this encounter (statuses as of 12/12/2024) Immunizations Name Administration Dates Next Due COVID-19 [...] (Prevnar) 10/25/2015,05/12/2015 Pneumococcal Conjugate Vacci ne, 20-valent ([id number]) 09/07/2024 Pneumococcal Conjugate Vacci ne, 7 Valent [...] No 11/29/2024 Does the household have a [facility] hospit[facility] source of income? (Household - for [...] Progress Notes * Liat Gamez, Community Health Tread Builder - 12/12/2024 2:46 PM EDT Telemedicine visit: No Community Health Tread Builder (JOSE ROBERTO) documentation: This CHW placed #2 f/u PC to patient's daughter Radhika Radhika reported that patient is now at [facility] on the Memory Care wing. They are adjusting to this transition and it has been hard on the family as well as patient. Patient is adjusting however not liking where he is and its "change" This CHW provided support and understanding and encouraged Radhika that if they need anything to please reach out to CM. Radhika expressed appreciation of [facility] help as well as [facility]. Liat Gamez- Community Health Worker 1 Support Services/[facility] [employer] [facility] [email or web address] documented in this encounter Plan of Treatment Upcoming Encounters Date Type Department Care Team (Late st Contact Info) Description 01/13/2025 2:20 PM EDT Office Visit Family Practice [address] [place] [address] Ranulfo Schumacher, [address] [place] [address] Scheduled Procedures Name Priority Associated Diagnoses Date/Ti me INJECTION SPINE LUMBAR OR SACRAL Spinal stenosis of lumbar region without neurogenic claudication Health Maintenance Due Date Last Done Comments Adult Wellness Visit 09/10/2024 09/10/2023, 05/31/20 21 Albumin/Creatinine Ratio 01/10/20252 024, 03/27/2023, 05/26/2022, Additional history exists COVID-19 Vaccine (8 - Moderna risk season) 2025 09/07/2024, 07/13/2023, 10/14/2022, Additional history exists CKD PHOS USE SMARTSET 34193 08/30/2025 1211/2023, 09/22/2023, 09/12/2022, Additional history exists Depression Screening 08/31/2025 08/31/2024, 08/30/20 24 CKD HGB USE SMARTSET 65626 12/06/202512/06, 12/06/2024, 10/20/2024, Additional history exists DTap/Tdap [...] this encounter Medical Devices Implanted Type Area Dray Truck Driver Device Identifier Shelf Expiration Date Model / Serial / Lot Plug Mesh Small Hernia - [id number] Implanted:Qty: 1 on 12/28/2017 by Jorge Luis Krause MD at OR [facility] Right: Groin CR BARD : DAVOL 02/25/2019 [id number] / / [id number] documented as of this encounter Advance Directives Documents on File Type Date Recorded Patient Simulation Software Engineer Expl anation POLST 12/09/2024 signed on 12/06 POLST - DNR/Limited Interventions Power of Quality Assurance Nurse 01/02/2023 Mukul banda signed on 01/02/2023 - Combined Living Will & Health Care POA Power of Quality Assurance Nurse 11/27/2014 signed on 11/27/2014 Health Care POA & Living Will and "What If I had Dementia" worksheet Healthcare Agents on File Name Relationship [facility] Mukul Gillian Adult Child Health Care Agen t (per Health Care Power of Quality Assurance Nurse document) Radhika bajwa Adult Child First Alternate Health Care Agent (per Health Care Power of Quality Assurance Nurse document) Care Teams Mill Beam Fitter Relationship Specialty Start Date End Date Ranulfo Schumacher DO [address] [place] [address] PCP - General Internal Medicine 03/11/24 documented as of this encounter
--- OUTSIDE RECORDS SUMMARY | 2024-12-17 08:19 | External Medical Summary ---
Author Name Unknown Address Unknown Organization [id number]:[facility] - [address] [place] [address] Laboratory Report Ordering Provider Test Date Status JUDSON NASH 12/06/2024 15:50:58 Final Observation Date Value Abnormality Reference (Units ) Status Iron 12/06/2024 15:50:58 44 Below low normal 45-176 (ug/dL) Final Iron-binding capacity 12/06/2024 15:50:58 338 250-425 (ug/dL) Final Transferrin Sat % 12/06/2024 15:50:58 13 Below low normal 15-55 (%) Final Performing Location [facility] - [address] [place] [address]
--- OUTSIDE RECORDS SUMMARY | 2024-12-17 08:20 | External Medical Summary | Summary of Care ---
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 Allergies Active Allergy Reactions Criticality Noted Date Comments Oxycodone 10/11/2020 caused heart to stopped--per patient documented as of this encounter (statuses as of 11/28/2024) Medications ASPIRIN EC 81 MG PO TBEC Take 1 Tablet by mouth every evening. Active MULTI VITAMIN/MINERALS PO TABS Take 1 Tablet by mouth in the morning. Active PREVIDENT 5000 BOOSTER PLUS 1.1 % DT PSTE [place] onto teeth. Special tooth paste 5 Active [...] 3 08/27/2024 12:55 PM EST 4 Active Gabapentin 100 MG Oral Capsule (Neurontin)Indic [...] Tablet 1 11/17/2024 6:44 AM EST Active documented as of this encounter (statuses as of 11/28/2024) Active Problems Problem Noted Date Diagnosed Date [...] as of this encounter (statuses as of 11/28/2024) Resolved Problems Problem Noted Date Diagnosed Date [...] as of this encounter (statuses as of 11/28/2024) Immunizations Name Administration Dates Next Due COVID-19 [...] (Prevnar) 10/25/2015,05/12/2015 Pneumococcal Conjugate Vacci ne, 20-valent ([id number]) 09/07/2024 Pneumococcal Conjugate Vacci ne, 7 Valent [...] Telephone Encounter - Kiesha Moon RN - 11/28/2024 11:30 AM EST Patient is still admitted at [facility]; awaiting bed at [facility] * Telephone Encounter - Sandrine Theodore LCSW - 11/21/2024 2:14 PM EST [facility] is contacting you as a FIRST REMINDER for completion of a seriously illness conversation. To satisfy this alert, please complete your documentation or schedule a return visit within the next 2 weeks. I see that he is scheduled for a visit with Dr. Schumacher on 11/28/24. Document this information in an ACP note by completing: Understanding of Illness Understanding of Prognosis Hopes Fears Surrogate Decision Maker - Combined Living Will & Health Care POA signed 01/02/2023 - please review with pt/family & document in "Document Review" section of ACP Activity POLST as appropriate - can be completed with son/daughter as Health Care Agent/Alternative Health Care Agent. Thank you, [facility] [phone] documented in this encounter Plan of Treatment Scheduled Procedures Name Priority Associated Diagnoses Date/Ti me INJECTION SPINE LUMBAR OR SACRAL Spinal stenosis of lumbar region without neurogenic claudication Health Maintenance Due Date Last Done Comments Adult Wellness Visit 09/10/2024 09/10/2023, 05/31/20 21 Albumin/Creatinine Ratio 01/10/202501/10/2 024, 03/27/2023, 05/26/2022, Additional history exists COVID-19 Vaccine (8 - Moderna risk season) 2025 09/07/2024, 07/13/2023, 10/14/2022, Additional history exists CKD PHOS USE SMARTSET 83595 08/30/2025 12/0 11/2023, 09/22/2023, 09/12/2022, Additional history exists Depression Screening 08/31/2025 08/31/2024, 08/30/20 24 CKD HGB USE SMARTSET 71868 10/20/202510/20, 10/20/2024, 08/30/2024, Additional history exists DTap/Tdap [...] this encounter Medical Devices Implanted Type Area Cytotechnologist/Histotechnologist Device Identifier Shelf Expiration Date Model / Serial / Lot Plug Mesh Small Hernia - [id number] Implanted:Qty: 1 on 12/28/2017 by Jorge Luis Krause MD at OR [facility] Right: Groin CR BARD : DAVOL 02/25/2019 [id number] / / [id number] documented as of this encounter Advance Directives Documents on File Type Date Recorded Patient Chocolate Temperer Expl anation Power of Cat And Dog Bather 01/02/2023 Mukul espinoza tts signed on 01/02/2023 - Combined Living Will & Health Care POA Power of Cat And Dog Bather 11/27/2014 signed on 11/27/2014 Health Care POA & Living Will and "What If I had Dementia" worksheet Healthcare Agents on File Name Relationship Healthcare Agent Relationshi p Communication Mukul French Adult Child Health Care Agen t (per Health Care Power of Cat And Dog Bather document) Radhika bajwa Adult Child First Alternate Health Care Agent (per Health Care Power of Cat And Dog Bather document) Care Teams Set Up / Operator Relationship Specialty Start Date End Date Ranulfo Schumacher DO [address] [place] [address] PCP - General Internal Medicine 03/11/24 documented as of this encounter
--- OUTSIDE RECORDS SUMMARY | 2024-12-17 08:20 | External Medical Summary | Summary of Care ---
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 Allergies Active Allergy Reactions Criticality Noted Date Comments Oxycodone 10/11/2020 caused heart to stopped--per patient documented as of this encounter (statuses as of 11/21/2024) Medications ASPIRIN EC 81 MG PO TBEC Take 1 Tablet by mouth every evening. Active MULTI VITAMIN/MINERALS PO TABS Take 1 Tablet by mouth in the morning. Active PREVIDENT 5000 BOOSTER PLUS 1.1 % DT PSTE [place] onto teeth. Special tooth paste 5 Active [...] as of this encounter (statuses as of 11/21/2024) Active Problems Problem Noted Date Diagnosed Date [...] as of this encounter (statuses as of 11/21/2024) Resolved Problems Problem Noted Date Diagnosed Date [...] as of this encounter (statuses as of 11/21/2024) Immunizations Name Administration Dates Next Due COVID-19 [...] (Prevnar) 10/25/2015,05/12/2015 Pneumococcal Conjugate Vacci ne, 20-valent ([id number]) 09/07/2024 Pneumococcal Conjugate Vacci ne, 7 Valent [...] LCSW - 11/21/2024 2:14 PM EST [facility] contacting you as a FIRST [...] Care Agent/Alternative Health Care Agent. Thank you, [employer] Team [phone] documented in this encounter Plan of Treatment Upcoming Encounters Date Type Department Care Team (Late st Contact Info) Description 11/28/2024 2:20 PM EST Office Visit Family Practice [address] [place] [address] Ranulfo Schumacher, DO [address] [place] [address] Scheduled Procedures Name Priority Associated Diagnoses Date/Ti me INJECTION SPINE LUMBAR OR SACRAL Spinal stenosis of lumbar region without neurogenic claudication Health Maintenance Due Date Last Done Comments Adult Wellness Visit 09/10/2024 09/10/2023, 05/31/20 21 Albumin/Creatinine Ratio 01/10/2025 024, 03/27/2023, 05/26/2022, Additional history exists COVID-19 Vaccine (8 - Moderna risk season) 2025 09/07/2024, 07/13/2023, 10/14/2022, Additional history exists CKD PHOS USE SMARTSET 72265 08/30/2025 12/11/2023, 09/22/2023, 09/12/2022, Additional history exists Depression Screening 08/31/2025 08/31/2024, 08/30/20 24 CKD HGB USE SMARTSET 75516 10/20/202510/20, 10/20/2024, 08/30/2024, Additional history exists DTap/Tdap [...] this encounter Medical Devices Implanted Type Area Loan Adviser Device Identifier Shelf Expiration Date Model / Serial / Lot Plug Mesh Small Hernia - [id number] Implanted:Qty: 1 on 12/28/2017 by Jorge Luis Krause MD at OR [facility] Right: Groin CR BARD : DAVOL 02/25/2019 [id number] / / [id number] documented as of this encounter Advance Directives Documents on File Type Date Recorded Patient Cleaner Operator Expl anation Power of Dolly Operator 01/02/2023 Mukul banda signed on 01/02/2023 - Combined Living Will & Health Care POA Power of Dolly Operator 11/27/2014 signed on 11/27/2014 Health Care POA & Living Will and "What If I had Dementia" worksheet Healthcare Agents on File Name Relationship Healthcare Agent Relationshi p Communication Mukul Gillian Adult Child Health Care Agen t (per Health Care Power of Dolly Operator document) Radhika bajwa Adult Child First Alternate Health Care Agent (per Health Care Power of Dolly Operator document) Care Teams Can Patcher Relationship Specialty Start Date End Date Ranulfo Schumacher DO [address] [place] [address] PCP - General Internal Medicine 03/11/24 documented as of this encounter
--- OUTSIDE RECORDS SUMMARY | 2024-12-17 08:20 | External Medical Summary | Summary of Care ---
Author Name Unknown Organization [facility] Address [address] [place] [address] Phone [phone] Care Team Providers Care Structural Manager Name Role Phone Ranulfo Schumacher DO Primary Care Provider [phone] Reason for Visit * Reason Onset Date Comments Sql Programmer Documentation 11/24/2024 My CareChoices/Advance Care Planning Encounter Details Date Type Department Care Team (Late st Contact Info) Description 11/24/2024 Telephone Care Coordination [address] [place] [address] Sandrine Theodore, [facility] Sql Programmer Documentation (MyCareChoic... Allergies Active Allergy Reactions Criticality Noted Date Comments Oxycodone 10/11/2020 caused heart to stopped--per patient documented as of this encounter (statuses as of 11/24/2024) Medications ASPIRIN EC 81 MG PO TBEC Take 1 Tablet by mouth every evening. Active MULTI VITAMIN/MINERALS PO TABS Take 1 Tablet by mouth in the morning. Active PREVIDENT 5000 BOOSTER PLUS 1.1 % DT PSTE [place] onto teeth. Special tooth paste 5 Active [...] as of this encounter (statuses as of 11/24/2024) Active Problems Problem Noted Date Diagnosed Date [...] as of this encounter (statuses as of 11/24/2024) Resolved Problems Problem Noted Date Diagnosed Date [...] as of this encounter (statuses as of 11/24/2024) Immunizations Name Administration Dates Next Due COVID-19 [...] (Prevnar) 10/25/2015,05/12/2015 Pneumococcal Conjugate Vacci ne, 20-valent ([id number]) 09/07/2024 Pneumococcal Conjugate Vacci ne, 7 Valent [...] Telephone Encounter - Sandrine Theodore LCSW - 11/24/2024 8:01 AM EST Reminder: A serious illness conversation alert will fire at the upcoming provider scheduled visit, 11/28/24. Conversation metrics needed in ACP note: Understanding of Illness Understanding of Prognosis Hopes Fears Surrogate Decision Maker - Combined LW & HC POA on chart dated 01/02/2023 - good to review for current accuracy - please document in "Document Review" section of ACP Activity POLST No ACP Notes regarding care preferences since 12/10/22 Reminder serious illness conversation needs to be entered in the new ACP activity flowsheet rows 10/11/2024. Thank you, My[facility]Choices [phone] documented in this encounter Plan of Treatment Upcoming Encounters Date Type Department Care Team (Late st Contact Info) Description 11/28/2024 2:20 PM EST Office Visit Family Practice [address] [facility] [place] [address] [place] [address] Ranulfo Schumacher, [address] [place] [address] Scheduled Procedures Name Priority Associated Diagnoses Date/Ti me INJECTION SPINE LUMBAR OR SACRAL Spinal stenosis of lumbar region without neurogenic claudication Health Maintenance Due Date Last Done Comments Adult Wellness Visit 09/10/2024 09/10/2023, 05/31/20 21 Albumin/Creatinine Ratio 01/10/202501/10/2 024, 03/27/2023, 05/26/2022, Additional history exists COVID-19 Vaccine (8 - Moderna risk season) 2025 09/07/2024, 07/13/2023, 10/14/2022, Additional history exists CKD PHOS USE SMARTSET 11007 08/30/2025 12/0 11/2023, 09/22/2023, 09/12/2022, Additional history exists Depression Screening 08/31/2025 08/31/2024, 08/30/20 24 CKD HGB USE SMARTSET 50098 10/20/202510/20, 10/20/2024, 08/30/2024, Additional history exists DTap/Tdap [...] this encounter Medical Devices Implanted Type Area Wheel Fitter Device Identifier Shelf Expiration Date Model / Serial / Lot Plug Mesh Small Hernia - [id number] Implanted:Qty: 1 on 12/28/2017 by Jorge Luis Krause MD at OR [facility] Right: Groin CR BARD : DAVOL 02/25/2019 [id number] / / [id number] documented as of this encounter Advance Directives Documents on File Type Date Recorded Patient Knot Bumper Expl anation Power of Communications Officer 01/02/2023 Mukul espinoza tts signed on 01/02/2023 - Combined Living Will & Health Care POA Power of Communications Officer 11/27/2014 signed on 11/27/2014 Health Care POA & Living Will and "What If I had Dementia" worksheet Healthcare Agents on File Name Relationship Healthcare Agent Relationshi p Communication Mukul French Adult Child Health Care Agen t (per Health Care Power of Communications Officer document) Radhika bajwa Adult Child First Alternate Health Care Agent (per Health Care Power of Communications Officer document) Care Teams Structural Manager Relationship Specialty Start Date End Date Ranulfo Schumacher DO [address] [place] [address] PCP - General Internal Medicine 03/11/24 documented as of this encounter
[2024-12-17] MEDS: LACTATED RINGER'S 1,000 ML IV SCH (08:52)
[2024-12-17] MEDS: PANTOprazole 40 MG/10 ML SYR IV SCH (08:53)
[2024-12-17] MEDS ORDERED: LIDOCAINE 5% 1 PATCH TD SCH (09:00)
[2024-12-17] MEDS: carvediloL 6.25 MG TAB PO SCH (10:23)
--- NOTE | 2024-12-17 10:33 | Orthopedic Consultation ---
Date of Consultation December 17, 2024 Assessment & Plan (1) Closed hip fracture: I spoke with the patient's son by phone as he is his power of trade mark attorney about the patient's diagnosis and treatment options. Surgery is indicated to restore his ability to walk. He is set high risk of complications secondary to his age, anticoagulated status, his dementia and difficulty to follow postoperative restrictions, suspected osteopenia or osteoporosis. I reviewed the risks and benefits of the surgery at length with the patient's son while the nurse Dorota was next to me. His son would like to proceed with surgery. The informed consent form was filled out. It was left on his chart. Plan will be for the patient to be allowed to eat today but n.p.o. after midnight tonight with plan for surgery tomorrow. They understand slightly increased risk of bleeding secondary to his Eliquis. (2) Fall: (3) Hard of hearing: (4) Mixed Alzheimer's and vascular dementia: History of Present Illness Reason for Consultation: Left femoral neck fracture Attending Physician: Alberto Acosta MD History of Present Illness Patient is an 84-year-old male with past medical history of difficulty hearing, Alzheimer's and vascular dementia, CKD stage III, CVA, PE, A-fib on Eliquis, history of lung and prostate cancer s/p surgical removal, and anemia. Was recently hospitalized 11/19 to 11/28 due to acute gastroenteritis 2/2 norovirus and anemia. PT/OT recommended rehab at this point however peer to peer was denied and patient was discharged home. Patient now resides at [facility] with his . Patient came into the ED via EMS from [facility] after an unwitnessed fall and was found to have a left femoral neck fracture. He was admitted to the hospitalist service from the emergency room last night. He took his last dose of Eliquis yesterday at 8 PM. Orthopedics was consulted for evaluation and management of his left hip fracture. Patient seen and examined this morning. Difficulty communicating secondary to hearing loss. However he is able to follow commands and answer questions with some prodding. He is appropriate. Denies numbness or tingling down the leg. Denies pain anywhere other than his left hip. I spoke with his son by phone. He reports the patient uses a walker at baseline. He resides at [facility]. Allergies Allergy/AdvReac Type Severity Reaction Status Date / Time lactose Allergy Intermediate Gastrointestinal Verified 12/17/24 00:05 Upset oxycodone AdvReac Severe became Verified 12/17/24 00:05 apneic and bradycardic Home Medications Medication Instructions Recorded Confirmed Type citalopram 20 mg tablet 20 mg PO QAM 08/31/18 12/17/24 History carvedilol 6.25 mg tablet 6.25 mg PO QAM 03/09/20 12/17/24 History gabapentin 100 mg capsule 100 mg PO AMPM 03/09/20 12/17/24 History aspirin 81 mg tablet,delayed 81 mg PO QPM 07/04/20 12/17/24 History release albuterol sulfate 90 mcg/actuation 2 puff inhalation Q6 PRN Shortness 07/07/20 12/17/24 History aerosol inhaler Of Breath Or Wheezing apixaban 5 mg tablet (Eliquis) 5 mg PO AMHS 10/12/24 12/17/24 History meclizine 12.5 mg tablet 12.5 mg PO BID PRN Dizziness 10/12/24 12/17/24 History buspirone 5 mg tablet 5 mg PO TID 11/19/24 12/17/24 History meclizine 12.5 mg tablet 12.5 mg PO BID17 11/19/24 12/17/24 History acetaminophen 325 mg tablet 650 mg PO Q6H PRN PAIN/FEVER 12/17/24 12/17/24 History (Tylenol) benzonatate 100 mg capsule 100 mg PO Q8H COUGH 12/17/24 12/17/24 History fluoride (sodium) 1.1 % dental 1 applic dental BID 12/17/24 12/17/24 History cream (PreviDent 5000 Plus) hydrocodone 5 mg-acetaminophen 325 1 tab PO Q6H PRN Pain (Scale Score 12/17/24 12/17/24 History mg tablet 5-10) iron,carbonyl 65 mg-vitamin C 125 1 tab PO DAILY 12/17/24 12/17/24 History mg tablet,delayed release (Vitron-C) pantoprazole 40 mg tablet,delayed 40 mg PO DAILY 12/17/24 12/17/24 History release Patient History Medical History On anticoagulant therapy Pulmonary embolism hospitalized 03/12/2020-03/15/2020 [facility] w/ BL PE; unk etiology; on coumadin Degenerative disc disease Osteoarthritis GERD (gastroesophageal reflux disease) Cancer LUNG AND PROSTATE CANCER, both treated surgically Asthma Using albuterol inhaler TID now since PEs. Previously wasn't using inhaler at all. Surgical History History of cataract surgery LEFT/RIGHT History of carpal tunnel release RT X 2 LEFT X 3 History of laminectomy LUMBAR History of prostatectomy History of esophagogastroduodenoscopy (EGD) History of colonoscopy History of herniorrhaphy RT INGUINAL History of lobectomy of lung RT MIDDLE LOBE History of tooth extraction History of tonsillectomy History of adenoidectomy Family History Father FHx: prostate cancer Grandfather (Paternal) FHx: prostate cancer Social History Smoking Status: Former smoker Tobacco Type: Cigars Second Hand Exposure: No; Do You Dip or Chew Tobacco: No; Hx Alcohol Use: Yes Alcohol type: wine Hx Substance Use: No Preferred Language: Luxembourgish Communication Ability: Effective Director Of Video Analytics Required: No Beliefs That Will Affect Care: None marital status: Current Living Situation: Prison Current Living Situation Comment: daughter is living with him currently Feels Safe at Home: Yes Assistive Devices: Walker Physical Exam Physical Exam: Resting supine in bed in discomfort because of his left hip as he was recently turned to perform skin checks by the nursing team. He is wearing a mask for oxygen supplementation at 2 L. Asks appropriate questions. He is hard of hearing. Left lower extremity exam reveals the patient's leg to be shortened and externally rotated. Skin is intact over the lateral aspect of the hip. He has thready pulses but they are palpable dorsalis pedis and posterior tibial. Skin is warm and well-perfused distally. He is able to wiggle his toes and fire ankle dorsiflexors and plantar flexors. Reports sensation intact to moving light touch in the dorsal and plantar aspects of the foot. Results & Data Vital Signs (Past 12 Hours) Vital Signs Temp Pulse Pulse Resp BP BP BP 12/17/24 09:27 104 H 12/17/24 09:24 20 12/17/24 08:53 36.2 C L 104 H 20 131/78 12/17/24 07:38 105 H 20 148/101 H 12/17/24 07:13 102 H 12/17/24 06:00 102 H 17 113/84 12/17/24 05:30 101 H 20 12/17/24 05:12 99 H 16 141/70 H 12/17/24 05:00 100 H 18 141/70 H 12/17/24 04:36 99 H 17 12/17/24 04:00 94 H 16 147/89 H 12/17/24 03:30 86 20 135/86 12/17/24 03:30 12/17/24 02:47 86 25 H 133/86 12/17/24 02:47 86 25 H 133/86 12/17/24 02:47 12/17/24 02:00 36.9 C 85 23 143/94 H 12/17/24 01:54 85 12/17/24 01:00 80 21 129/98 12/17/24 01:00 36.7 C 80 21 129/98 12/17/24 00:59 36.7 C 80 21 129/98 12/17/24 00:00 36.8 C 77 23 144/89 H 12/16/24 23:24 36.7 C 80 24 128/86 12/16/24 23:24 12/16/24 23:00 52 L 20 112/72 12/16/24 23:00 79 22 149/95 H 12/16/24 22:35 60 18 129/82 Pulse Ox Pulse Ox O2 Del Method O2 Del Method O2 Flow Rate O2 Flow Rate 12/17/24 09:27 12/17/24 09:24 94 Oxymask 2 12/17/24 08:53 12/17/24 07:38 93 Nasal Cannula 2 12/17/24 07:13 12/17/24 06:00 92 Nasal Cannula 2 12/17/24 05:30 92 Nasal Cannula 2 12/17/24 05:12 93 Nasal Cannula 2 12/17/24 05:00 92 Nasal Cannula 2 12/17/24 04:36 93 Nasal Cannula 2 12/17/24 04:00 92 Nasal Cannula 2 12/17/24 03:30 93 Nasal Cannula 2 12/17/24 03:30 Nasal Cannula 2 12/17/24 02:47 95 Nasal Cannula 2 12/17/24 02:47 95 Nasal Cannula 2 12/17/24 02:47 95 Nasal Cannula 2 12/17/24 02:00 94 Nasal Cannula 2 12/17/24 01:54 12/17/24 01:00 96 Nasal Cannula 2 12/17/24 01:00 96 Nasal Cannula 2 12/17/24 00:59 97 Room Air 12/17/24 00:00 93 Room Air 12/16/24 23:24 98 Room Air 0 12/16/24 23:24 100 Room Air 12/16/24 23:00 98 Room Air 12/16/24 23:00 95 Room Air 12/16/24 22:35 99 Room Air Diagnostic Findings X-rays done in the emergency room are independently interpreted by me. They show a displaced left femoral neck fracture. (1) Closed hip fracture Encounter type: initial encounter Laterality: left Qualified Code(s): S72.002A - Fracture of unspecified part of neck of left femur, initial encounter for closed fracture (2) Fall Encounter type: initial encounter Qualified Code(s): W19.XXXA - Unspecified fall, initial encounter
[2024-12-17] MEDS: GABAPENTIN 100 MG CAP PO SCH (10:43)
[2024-12-17] MEDS: busPIRone 5 MG TAB PO SCH (13:04)
[2024-12-17] MEDS ORDERED: MAGNESIUM HYDROXIDE SUSP 30 ML UDC PO PRN (16:12)
[2024-12-17] MEDS ORDERED: bisacodyL 10 MG SUPP PR PRN (16:12)
--- NOTE | 2024-12-17 16:14 | Communication Note ---
Date of Service: December 17, 2024 Patient admitted after midnight therefore not be billing for this encounter. Patient was seen and examined. Labs, EKG and imaging reviewed. Discussed case with Dr. Riley and planning surgery for tomorrow. Continue to hold Eliquis. Restarted all other medications and diet order placed. I am unclear why he takes carvedilol just once a day although this is how it is prescribed on external medication list from prior [facility] physician and on prior hospitalization. Patient should be n.p.o. after midnight for surgery tomorrow. Will continue to monitor hypoxia. Incentive spirometer ordered.
[2024-12-17] MEDS: KETOROLAC TROMETHAMINE 15 MG/ML VIAL IV ONE (23:51)
[2024-12-18] MEDS: OPTIRAY 320 125ml IV ONE (00:28)
--- NOTE | 2024-12-18 01:57 | CT Scan Report ---
EXAM: CT angio chest PE protocol CLINICAL HISTORY: PE. TECHNIQUE: CT angiography of the chest was performed with and without intravenous contrast with the following protocol: axial images with, reconstructed coronal and sagittal images. Non-contrast images were initially acquired, followed by contrast-enhanced images in arterial and venous phases. 118 cc opti 320 Intravenous contrast was administered using automated injection techniques. Bolus tracking was employed to optimize arterial phase imaging. One of these 3D techniques was utilized: Maximum Intensity Pixel (MIP), 3D Reconstructed Images, Volume Rendered Images, Surface Shaded Rendering. One of the following dose reduction techniques was utilized for this exam: Automated exposure control, adjustment of the mA and/or kV according to patient size, and use of iterative reconstruction. DLP: 866.85mGy.cm. 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 FINDINGS: Aorta and Great Vessels: Ascending Aorta: Normal in caliber, no aneurysm, dissection, or significant atherosclerosis. Aortic Arch: Normal in caliber, no aneurysm, or dissection however atherosclerotic wall calcifications are seen. Descending Aorta: Normal in caliber, no aneurysm, or dissection however atherosclerotic wall calcifications are seen. Pulmonary Arteries: The main pulmonary artery and its branches are patent. No evidence of pulmonary embolism or significant stenosis. Heart: Cardiac size is enlarged. Pericardium: No pericardial effusion or thickening. Lungs and Pleura: Patches of consolidation are seen in the posterior segment of the right upper lobe and bilateral posterior basal segments of the lower lobes. Few scattered pneumatoceles/centrilobular emphysematous changes are seen in both lungs. Bilateral basal pleural effusion. Mediastinum: No mediastinal mass or abnormal lymphadenopathy. Normal appearance of the trachea and central bronchi. Hilar Structures: Hilar structures are normal without enlargement. Few surgical clips are seen in right hilum. Chest Wall: No mass lesions or abnormalities in the chest wall. Vascular Structures: Superior Vena Cava: Patent without evidence of stenosis or thrombus. Inferior Vena Cava: Patent without evidence of stenosis or thrombus. Bones and Soft Tissues: No fractures, lytic, or blastic lesions of the visualized bony structures. Significant age-related degenerative changes are seen. Left shoulder prosthesis is seen. No loosening or break. A large intracrural defect with intrathoracic herniation of the stomach. IMPRESSION: 1. No evidence of pulmonary embolism, or aortic aneurysm, or dissection. 2. Bilateral pulmonary consolidations with basal pleural effusions concerning acute infective/inflammatory lung disease. 3. Hiatal hernia. 4. In comparison to previous CT chests conducted 12/16/2024 pulmonary consolidations are interval new findings. Electronically signed by Abe Redman 12-18-2024 01:56 AM
[2024-12-18 02:00] LABS: Base Excess VBG 0.9 mEq/L; HCO3 VBG 28 mmol/L; Oxygen Saturation VBG 66.6 %; PCO2 VBG 51 mmHg (38-50); PO2 VBG 40 mmHg; pH VBG 7.34 (7.36-7.41)
[2024-12-18] MEDS: PIPERACILLIN/TAZOBACTAM 4.5 GM/100 ML BAG IV STA (02:47)
[2024-12-18] MEDS ORDERED: fentaNYL citrate PF 100 MCG/2 ML VIAL ONE ×2 (06:46→09:29)
[2024-12-18] MEDS ORDERED: PROPOFOL IV EMULSION 10 MG/ML 20 ML VIAL IV ONE ×2 (06:46→09:05)
[2024-12-18] MEDS ORDERED: LIDOCAINE 2% 2 ML VIAL/AMP(20MG/ML) INFIL ONE ×2 (06:46→09:05)
[2024-12-18] MEDS ORDERED: DEXAMETHASONE SOD INJ 4 MG/ML VIAL ONE ×2 (06:46→09:05)
[2024-12-18] MEDS ORDERED: ONDANSETRON INJ 2 MG/ML 2 ML VIAL ONE ×2 (06:46→09:05)
[2024-12-18] MEDS ORDERED: ROCURONIUM BROMIDE 10 MG/ML 5 ML VIAL IV ONE ×3 (06:48→09:41)
[2024-12-18 06:56] LABS: Basophils # (auto) 0.02 K/uL (0.00-0.20); Basophils % (auto) 0.2 %; Eosinophils # (auto) 0.26 K/uL (0.00-0.50); Eosinophils % (auto) 2.5 %; Hematocrit (blood only) 35.7 % (42.0-52.0); Hemoglobin 11.2 g/dl (14.0-18.0); Immature Granulocytes # (auto) 0.04 K/uL (0.01-0.20); Immature Granulocytes % (auto) 0.4 %; Lymphocytes # (auto) 1.19 K/uL (1.20-3.40); Lymphocytes % (auto) 11.5 %; Mean Corpuscular Hemoglobin 26.3 pg (25.0-34.0); Mean Corpuscular Hgb Conc 31.4 g/dL (32.0-36.0); Mean Corpuscular Volume 83.8 fL (80.0-100.0); Mean Platelet Volume 9.7 fL (9.4-12.4); Monocytes # (auto) 0.78 K/uL (0.11-0.59); Monocytes % (auto) 7.5 %; Neutrophils # (auto) 8.09 K/uL (1.40-6.50); Neutrophils % (auto) 77.9 %; Platelet Count 225 K/uL (130-400); RDW Coefficient of Variation 16.3 % (11.5-14.5); RDW Standard Deviation 48.9 fL (36.4-46.3); Red Blood Count 4.26 M/uL (4.70-6.10); White Blood Count 10.38 K/ul (4.8-10.8)
[2024-12-18 07:19] LABS: BUN Creatinine Ratio 15.4 (10-20); Calcium 8.9 mg/dl (8.6-10.3); Creatinine Clr Calc Pharmacy 40.9 ml/min
[2024-12-18] MEDS: PIPERACILLIN/TAZOBACTAM 4.5 GM/100 ML BAG IV SCH (08:00)
[2024-12-18] MEDS: CITALOPRAM 20 MG TAB PO SCH (08:05)
[2024-12-18] MEDS ORDERED: HYDROmorphone INJ 0.5 MG/0.5 ML SYR IV PRN ×2 (08:42)
[2024-12-18] MEDS ORDERED: PHENYLEPHRINE HCL 10 MG/ML VIAL ONE (09:05)
--- NOTE | 2024-12-18 09:25 | Anesthesiology Consultation ---
Date of Service December 18, 2024 Assessment & Plan Chart Review Chart Review: Acceptable Risk for Surgery (patient at increased risk of respiratory complication) and Patient NOT seen in Pre Admission Testing After discussion with Drs. Acosta and Osvaldo the decision to proceed with surgical fixation despite worsening respiratory status was reached. Delaying the surgery will most likely not provide significant improvement of the patients respiratory status. I spoke with the patients daughter regarding the risks of proceeding and the possible need for mechanical ventilation post operatively and she approved. She also agrees to suspending DNR/DNI during the perioperative period. Consults Requested none History Surgery Operation Date: 12/18/24 07:30 Proposed Procedures p Bipolar Hip Prosthesis Cemented - Eduardo Farias MD Height/Weight Height: 5 ft 6 in Weight: 74.7 kg Allergies Allergy/AdvReac Type Severity Reaction Status Date / Time lactose Allergy Intermediate Gastrointestinal Verified 12/17/24 00:05 Upset oxycodone AdvReac Severe became Verified 12/17/24 00:05 apneic and bradycardic Medications Home Medications Medication Instructions Recorded Confirmed Last Taken citalopram 20 mg tablet 20 mg PO QAM 08/31/18 12/17/24 12/16/24 carvedilol 6.25 mg tablet 6.25 mg PO QAM 03/09/20 12/17/24 12/16/24 gabapentin 100 mg capsule 100 mg PO AMPM 03/09/20 12/17/24 12/16/24 aspirin 81 mg tablet,delayed 81 mg PO QPM 07/04/20 12/17/24 12/16/24 release albuterol sulfate 90 mcg/actuation 2 puff inhalation Q6 PRN Shortness 07/07/20 12/17/24 08/19/20 aerosol inhaler Of Breath Or Wheezing apixaban 5 mg tablet (Eliquis) 5 mg PO AMHS 10/12/24 12/17/24 12/16/24 meclizine 12.5 mg tablet 12.5 mg PO BID PRN Dizziness 10/12/24 12/17/24 Unknown buspirone 5 mg tablet 5 mg PO TID 11/19/24 12/17/24 12/16/24 meclizine 12.5 mg tablet 12.5 mg PO BID17 11/19/24 12/17/24 12/16/24 acetaminophen 325 mg tablet 650 mg PO Q6H PRN PAIN/FEVER 12/17/24 12/17/24 Unknown (Tylenol) benzonatate 100 mg capsule 100 mg PO Q8H COUGH 12/17/24 12/17/24 Unknown fluoride (sodium) 1.1 % dental 1 applic dental BID 12/17/24 12/17/24 12/16/24 cream (PreviDent 5000 Plus) hydrocodone 5 mg-acetaminophen 325 1 tab PO Q6H PRN Pain (Scale Score 12/17/24 12/17/24 Unknown mg tablet 5-10) iron,carbonyl 65 mg-vitamin C 125 1 tab PO DAILY 12/17/24 12/17/24 12/16/24 mg tablet,delayed release (Vitron-C) pantoprazole 40 mg tablet,delayed 40 mg PO DAILY 12/17/24 12/17/24 12/16/24 release Active Medications Generic Name Dose Route Start Last Admin Trade Name Freq PRN Reason Stop Dose Admin Buspirone HCl 5 mg 12/17/24 14:00 12/18/24 08:05 Buspirone 5 Mg Tab PO 01/16/25 13:59 5 mg TID ROSA M Administration Carvedilol 6.25 mg 12/17/24 09:00 12/17/24 10:23 Carvedilol 6.25 Mg Tab PO 01/16/25 08:59 6.25 mg QAM ROSA M Administration Citalopram Hydrobromide 20 mg 12/18/24 09:00 12/18/24 08:05 Citalopram 20 Mg Tab PO 01/17/25 08:59 20 mg QAM ROSA M Administration Gabapentin 100 mg 12/17/24 10:00 12/18/24 08:05 Gabapentin 100 Mg Cap PO 01/16/25 09:59 100 mg BID ROSA M Administration Acetaminophen 1,000 mg in 100 mls @ 400 mls/hr 12/17/24 03:00 12/18/24 02:47 Ofirmev IV 12/20/24 02:59 Infused Q8H ROSA M Infusion Pantoprazole Sodium 40 mg in 10 mls @ 5 mls/min 12/17/24 09:00 12/18/24 08:10 Protonix IV 01/16/25 08:59 5 mls/min DAILY ROS AM Administration Piperacillin Sod/Tazobactam Sod 4.5 gm in 100 mls @ 25 mls/hr 12/18/24 08:00 12/18/24 08:00 Zosyn IV 12/23/24 07:59 25 mls/hr Q8H ROSA M Administration Protocol Lidocaine 1 patch 12/17/24 05:20 12/18/24 08:02 Lidocaine 5% 1 Patch TD 01/16/25 05:19 1 patch QAM ROSA M Administration Miscellaneous 1 each 12/17/24 17:20 12/17/24 17:11 Remove Lidoderm Patch N/A 01/16/25 17:19 1 each DAILY@2100 ROSA M Administration Ondansetron HCl 4 mg 12/17/24 02:47 12/17/24 23:32 Ondansetron Inj 2 Mg/Ml 2 Ml Vial IV 01/16/25 02:46 4 mg Q6H PRN Administration Nausea And Vomiting Past Medical History Medical History On anticoagulant therapy Pulmonary embolism hospitalized 03/12/2020-03/15/2020 [facility] w/ BL PE; unk etiology; on coumadin Degenerative disc disease Osteoarthritis GERD (gastroesophageal reflux disease) Cancer LUNG AND PROSTATE CANCER, both treated surgically Asthma Using albuterol inhaler TID now since PEs. Previously wasn't using inhaler at all. Past Family History Family History Father FHx: prostate cancer Grandfather (Paternal) FHx: prostate cancer Past Surgical History Surgical History History of cataract surgery LEFT/RIGHT History of carpal tunnel release RT X 2 LEFT X 3 History of laminectomy LUMBAR History of prostatectomy History of esophagogastroduodenoscopy (EGD) History of colonoscopy History of herniorrhaphy RT INGUINAL History of lobectomy of lung RT MIDDLE LOBE History of tooth extraction History of tonsillectomy History of adenoidectomy Social History Smoking Status: Former smoker tobacco type: cigars Do You Dip or Chew Tobacco: No Hx Alcohol Use: Yes Alcohol type: wine Hx Substance Use: No substance use type: does not use Physical Exam Vital Signs Last Vital Signs Temp 37.1 C 12/18/24 08:04 Pulse 95 H 12/18/24 08:04 Resp 16 03/23/25 08:04 BP 176/81 H 12/18/24 08:04 Pulse Ox 95 12/18/24 08:04 O2 Del Method Oxymask 12/18/24 08:04 O2 Flow Rate 12 12/18/24 08:04 Testing Laboratory Results 12/18/24 06:12 12/18/24 06:12 PT 11.7 Seconds (9.0-12.0) 12/16/24 21:50 INR 1.1 (0.9-1.1) 12/16/24 21:50 APTT 27 Seconds (21-31) 12/16/24 21:50 Urine Color Yellow 12/17/24 03:00 Urine Appearance Clear (Clear) 12/17/24 03:00 Urine pH 6.0 (4.5-7.5) 12/17/24 03:00 Ur Specific [place] 1.015 (1.000-1.030) 12/17/24 03:00 Urine Protein Negative (Negative) 12/17/24 03:00 Urine Glucose (UA) Negative (Negative) 12/17/24 03:00 Urine Ketones Trace (Negative) H 12/17/24 03:00 Urine Nitrite Negative (Negative) 12/17/24 03:00 Ur Leukocyte Esterase Negative (Negative) 12/17/24 03:00 12/17/24 23:38 POC Glucose 125 H
--- NOTE | 2024-12-18 09:55 | Hospitalist Progress Note ---
Date of Service December 18, 2024 Assessment & Plan (1) Fall: (2) Closed hip fracture: (3) Paroxysmal atrial fibrillation: (4) Mixed Alzheimer's and vascular dementia: (5) Acute respiratory failure with hypoxia: Plan Patient is an 84-year-old male with past medical history of Alzheimer's and vascular dementia, CKD stage III, CVA, PE, A-fib on Eliquis, history of lung and prostate cancer s/p surgical removal, and anemia. Patient came into the ED via EMS from [facility] after an unwitnessed fall and was found to have a left femoral neck fracture. #Acute respiratory failure with hypoxia / aspiration pneumonitis/pneumonia - worsening respiratory status overnight which I suspect is multifactorial. Opiates and pain decreasing respiratory drive. Likely some aspiration pneumonitis in addition on CT although this is not primarily his issue. Abdominal distention from ileus/constipation is also contributing significantly. - He is highly likely to deteriorate over the coming days without operating on his hip, I do not feel further medical optimization is possible - he does not have a large infection with normal procalcitonin or consolidation to clear from his lungs to warrant further medical optimization and delay of his operation. I discussed that really the choice with his daughter is non-operative/palliative management vs. operation at this point and the daughter feels her father would have wanted the operation. He was relatively mobile prior to his fall and on room air. Discussed case with both anesthesia (Dr Huggins) and orthopedics (Dr Farias). He is prognosis is poor irregardless but I do feel it is better to proceed given the patients wish for active treatment. The treatment for his worsening respiratory status is effectively to help with his hip pain with surgical treatment and start him on his post operative course as soon as possible. 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 set up worker aware of patient - SLT consult post-operatively - Agree with continuing antibiotics for aspiration although suspect it is more of a pneumonitis currently rather than true pneumonia #left femoral neck fracture/fall s/p unwitnessed fall - patient uses wheelchair and walker at baseline hip/pelvis XR revealed left femoral neck fracture all other diagnostic imaging negative for acute changes Left bipolar hip planned for today #Paroxysmal A-fib Currently normal sinus rhythm Holding Eliquis Continue carvedilol perioperatively, although I am unclear why he is only taking this once a day - this appears to be the way it was prescribed last admission and from [employer] prescription monitor on tele #Alzheimer and vascular dementia Extremely hard of hearing Head CT negative for acute changes promote good sleep-wake cycles Monitor for delirium Chronic stable diagnoses: GERD - can transition pantoprazole back to p.o. postoperatively Hx CVA - holding ASA and Eliquis and Lipitor with possible surgical management History of PE - holding Eliquis, restart when ok from orthopedics aspect Anemia - hgb 10.8, workup during recent admission, declined EGD and colonoscopy, may be new baseline with anemia of chronic disease VTE ppx: SCDs, holding Eliquis with surgical management, will be restarted post operatively Diet: NPO Dispo: med/tele with IV opioids and hx of a fib Admission and Anticipated Discharge Date Admission Date: December 17, 2024 Subjective Patient very hard of hearing despite hearing aid in his left ear and has unde rlying dementia therefore unable to contribute to most of the discussion today. Discussed care with his daughter at the bedside. He is short of breath without any chest pain or abdominal pain. His abdomen is distended. No bowel movement since he has come to the emergency room. He has no history of heart failure or fluid buildup in his lungs. During his admission with norovirus he actually received IV fluids with no diuretics were needed. He is on Eliquis for both atrial fibrillation bolus or history of pulmonary embolism. He last had a stroke in 2020. We discussed his worsening respiratory status overnight although relatively minimal changes on his CT scan. He appears to be taking poor inspiratory effort. Requiring Dilaudid 0.5 mg twice overnight and 5 times since yesterday morning in addition to the Toradol dose overnight to help with his pain. We discussed his high risk of having an operation not just during the operation but also afterwards and possible need for extended intubation. She expressed a wish that even though he is DNR and DNI he would want to try to have the hip operation if at all possible. He was mobile with a cane prior to the operation and on room air. Physical Exam ENMT: Mouth: + dry oral mucous membranes Respiratory: + abnormal respiratory effort (Poor) Auscultation: + diminished lung sounds (Throughout); no crackles and no wheezes Cardiovascular: RRR, no murmur, no edema Gastrointestinal (Abdomen): Inspection/Auscultation: + abdomen distended Percussion/Palpation: abdomen soft; abdomen nontender Psychiatric: Orientation: alert and oriented to person; + not oriented to place and + not oriented to time Results & Data Results & Data Vital Signs (Past 12 Hours) Vital Signs Temp Pulse Pulse Pulse Resp BP Pulse Ox 12/18/24 08:04 37.1 C 95 H 16 176/81 H 95 12/18/24 07:29 90 12/18/24 04:15 36.8 C 94 H 16 155/74 H 90 12/18/24 04:14 88 12/18/24 03:02 12/18/24 00:51 103 H 91 12/17/24 23:44 97 H 24 169/97 H 94 12/17/24 23:41 104 H 24 186/105 H 96 12/17/24 23:39 107 H 24 196/103 H 94 12/17/24 22:26 92 H O2 Del Method O2 Flow Rate 12/18/24 08:04 Oxymask 12 12/18/24 07:29 12/18/24 04:15 Oxymask 12/18/24 04:14 12/18/24 03:02 Oxymask 8 12/18/24 00:51 Oxymask 10 12/17/24 23:44 Oxymask 8 12/17/24 23:41 Non-rebreather 15 12/17/24 23:39 Non-rebreather 15 12/17/24 22:26 Laboratory Results AM labs reviewed Diagnostic Findings CT images and report reviewed from overnight PG Care Time/CCT Total # of Minutes Spent Total Time Spent with Patient: Total time spent is greater than 50% in coordination of care (as documented) at patient's floor/unit and/or counseling patient: Coding Level of Care Code 47571 SUB INP/OBS CARE 3/50MIN Diagnoses Fall W19.XXXA Encounter type: initial encounter Closed hip fracture S72.002A Encounter type: initial encounter Laterality: left Paroxysmal atrial fibrillation I48.0 Mixed Alzheimer's and vascular dementia G30.9; F01.50; F02.80 Acute respiratory failure with hypoxia J96.01 (1) Fall Encounter type: initial encounter Qualified Code(s): W19.XXXA - Unspecified fall, initial encounter (2) Closed hip fracture Encounter type: initial encounter Laterality: left Qualified Code(s): S72.002A - Fracture of unspecified part of neck of left femur, initial encounter for closed fracture
--- NOTE | 2024-12-18 10:03 | Orthopedic Progress Note ---
Date of Service December 18, 2024 Assessment & Plan (1) Closed hip fracture: Plan: I discussed the patient's case with the anesthesiologist Dr. Huggins as well as the hospitalist Dr. Acosta. Dr. Acosta felt that his pulmonary status was more likely related to aspiration and limited inspiration secondary to pain and possible side effects of pain medication. Does not believe the patient is bacteremic. Does not expect him to improve significantly over the next couple of days as he feels that the pain from his hip is the main problem is this is requiring narcotics that cause respiratory depression. Discussion was had between Dr. Acosta and the family about options including surgery today versus delaying surgery versus palliative care. Family would like to proceed with surgery. Informed consent was already obtained. I met with the patient as well as his son Mukul and his daughter and everyone is in agreement with proceeding to surgery today acknowledging the risks of surgery including possibility of . Plan will be for the patient to be readmitted to the hospitalist service after surgery. (2) Fall: (3) Hard of hearing: (4) Mixed Alzheimer's and vascular dementia: Admission and Anticipated Discharge Date Admission Date: December 17, 2024 Subjective Patient seen and examined twice this morning. I was contacted by the hospitalist early this morning that he had increasing oxygen requirements up to 12 L/min from 2 L/min yesterday to maintain his oxygen saturations. I then spoke with Dr. Acosta this morning. Patient reports that his hip does not hurt that bad this morning. Denies any pain in his chest. He does say that he has a little bit of a headache with a history of migraines. Denies numbness or tingling in the left lower extremity. Physical Exam Physical Exam: Sitting upright in bed. Mental status and pain appear improved today compared to yesterday. He is alert and communicative. Left lower extremity exam unchanged from yesterday. Results & Data Vital Signs (Past 12 Hours) Vital Signs Temp Pulse Pulse Pulse Resp BP Pulse Ox 12/18/24 08:04 37.1 C 95 H 16 176/81 H 95 12/18/24 07:29 90 12/18/24 04:15 36.8 C 94 H 16 155/74 H 90 12/18/24 04:14 88 12/18/24 03:02 12/18/24 00:51 103 H 91 12/17/24 23:44 97 H 24 169/97 H 94 12/17/24 23:41 104 H 24 186/105 H 96 12/17/24 23:39 107 H 24 196/103 H 94 12/17/24 22:26 92 H O2 Del Method O2 Flow Rate 12/18/24 08:04 Oxymask 12 12/18/24 07:29 12/18/24 04:15 Oxymask 12/18/24 04:14 12/18/24 03:02 Oxymask 8 12/18/24 00:51 Oxymask 10 12/17/24 23:44 Oxymask 8 12/17/24 23:41 Non-rebreather 15 12/17/24 23:39 Non-rebreather 15 12/17/24 22:26 (1) Closed hip fracture Encounter type: initial encounter Laterality: left Qualified Code(s): S72.002A - Fracture of unspecified part of neck of left femur, initial encounter for closed fracture (2) Fall Encounter type: initial encounter Qualified Code(s): W19.XXXA - Unspecified fall, initial encounter
[2024-12-18] MEDS ORDERED: fentaNYL citrate PF 100 MCG/2 ML VIAL IV PRN (10:20)
[2024-12-18] MEDS ORDERED: ONDANSETRON INJ 2 MG/ML 2 ML VIAL IV PRN (10:20)
[2024-12-18] MEDS ORDERED: ePHEDrine sulfate 50 MG/ML AMP IV PRN (10:20)
[2024-12-18] MEDS ORDERED: ATROPINE SULFATE 0.1 MG/ML 10ML SYR IV PRN (10:20)
[2024-12-18] MEDS: TRANEXAMIC ACID / 0.7% NACL 1,000 MG/100 ML BAG IV ONE (11:20)
[2024-12-18] MEDS: ORTHO JOINT ANESTHETIC ONE (11:40)
[2024-12-18] MEDS: ROPIVACAINE 0.5% HCL/PF 246 MG, Ketorolac (*for OR use only*) 30 MG, EPINEPHrine 30MG/3... INFIL SCH (12:17)
[2024-12-18] MEDS: TRANEXAMIC ACID / 0.7% NACL 1,000 MG/100 ML BAG IV SCH (12:20)
[2024-12-18] MEDS ORDERED: SUGAMMADEX SODIUM 200 MG/2 ML VIAL IV ONE ×2 (12:23→13:04)
--- NOTE | 2024-12-18 12:43 | Operative Report ---
Post Operative Report Pre & Post Diagnosis Operation Date: 12/18/24 07:30 Preoperative diagnosis: Displaced left femoral neck fracture. Postop diagnosis: Displaced left femoral neck fracture. I identified the patient and participated in the time-out.: Yes Procedure Operation Date: 12/18/24 07:30 Actual Procedures p Left Bipolar Hip Prosthesis Cemented(Left) - Eduardo Farias MD Surgeon Eduardo Farias MD Manager [employer] Hugh Jimenez PA-C. No resident or fellow was available to assist. Estimated Blood Loss 100 Findings Consistent with Post-Op Diagnosis Specimens Left femoral head Anesthesia Type Spinal MAC Complications none Disposition Disposition: Recovery Room Indications 84-year-old male, fell late on Thursday with immediate onset of pain in his left hip. He was admitted to the hospital overnight Thursday. I saw him yesterday. X-rays in the emergency room demonstrated displaced left femoral neck fracture. He takes Eliquis at baseline. Therefore, we elected to perform his surgery today to decrease the risk of intraoperative bleeding. Overnight, he did have an increase in his oxygen requirements from 2 L to 12 L in order to maintain his oxygen saturations. I had a long discussion with the hospitalist as well as the anesthesiologist about taking this patient to surgery. It was felt that the patient would do better to have surgery earlier as opposed to later given the amount of pain he was having and the respiratory depression effects of narcotic pain medications. Patient and his family elected to proceed with surgery. All questions were answered. Informed consent was signed. Description of Procedure Patient was identified on the floor where surgical site was marked. He was brought back to the operating room where general anesthesia was administered on the hospital bed. He was then carefully moved onto the operating room table then rolled up into the lateral decubitus position. Axillary roll was placed. All bony prominences were padded. Perioperative antibiotics were administered. He was prepped and draped in the usual sterile fashion. Prior to incision a multidisciplinary timeout was called. All in the room in agreement. I began by making it 12 cm long incision for a posterior approach to the hip. I dissected down through subcutaneous tissues to the level of the fascia. Fascia was incised in line with the incision. Charnley was placed. He had some hemorrhage in his trochanteric bursa. This was excised. Piriformis and short external rotators were identified. These were dissected off the posterior aspect of the hip. An L-shaped capsulotomy was performed. Fractured femoral neck was identified. Angle cutting guide was used to delineate the appropriate angle of her femoral neck osteotomy which was then performed with a saw just below the level of the fracture. Next, the acetabular was exposed and the femoral head was removed with a corkscrew. Ligamentum teres was removed with electrocautery. The acetabulum was irrigated out inspected. There were some chondrocalcinosis changes seen centrally in the pulvinar fat. However the labrum and the cartilage were otherwise intact with no more than grade I chondromalacia. Therefore decision was made to proceed with a hemiarthroplasty. Acetabulum was then sized to a size 46. Femur was then exposed. Lateral neck was removed with a box osteotome. Intramedullary guide was used followed by the lateralizing reamer. I broached up to a size 5 [place] stem. We then trialed with a +5 standard offset neck. This gave us good church of his leg lengths. Stable in extension and external rotation. Stable in the sleeper position. At 90 degrees of hip flexion he could be internally rotated 75 degrees before levering out of the cup. I was very happy with the stability exam. Therefore, the hip was atraumatically dislocated and the femoral trial was removed. A cement restrictor was placed distally. The femoral canal was irrigated out and dried. Cement was mixed on the back table. Cement was then injected using [place] and pressurized with my thumbs. The size 5 standard offset [place] cemented stem was then inserted into the intramedullary canal. Excess cement was removed. The prosthesis was then held in approximately 20 degrees of femoral neck anteversion while the cement cured. Once the cement was cured the real bipolar with a +5 offset stem was assembled on the back table. The trunnion was cleaned and dried and then the femoral bipolar head was gently tapped onto the trunnion. Acetabulum was reirrigated out and dried. Hip was atraumatically reduced. We then began to close. Piriformis and short external rotators were repaired along with the capsule using #2 Vicryl sutures through bone tunnels in the posterior aspect of the greater trochanter. A single [id number] #2 Vicryl suture was used between the piriformis and the gluteus minimus. Wound was reirrigated out and dried. The fascia was run with a looped #1 PDS. Subcutaneous layer was closed with #1 PDS. Deep dermis was closed with 2-0 Vicryl in running fashion. Skin was closed with a Zipline and Dermabond. Silverlon dressing was placed followed by compressive dressing. Patient was then carefully rolled supine, extubated, and transferred to the cover room in stable condition. Postoperative course: Patient will be readmitted to the internal medicine service from the recovery room. He will be weightbearing as tolerated with posterior hip precautions. Must use a walker for the remainder of his lifetime as a permanent restriction. He can restart his Eliquis tomorrow for DVT prophylaxis. I attest to the content of the Intraoperative Record and any orders documented therein. Any exceptions are noted below.
--- NOTE | 2024-12-18 12:56 | Operative Report ---
Post Operative Report Pre & Post Diagnosis Operation Date: 12/18/24 07:30 Pre-Op Diagnosis: Closed Left hip fracture Post-Op Diagnosis: Closed Left hip fracture I identified the patient and participated in the time-out.: Yes Procedure Operation Date: 12/18/24 07:30 Actual Procedures p Left Bipolar Hip Prosthesis Cemented(Left) - Eduardo Farias MD Surgeon Eduardo Farias MD Early Childhood Educator Aide Hugh Jimenez PA-C. No resident or fellow was available to assist. Estimated Blood Loss 100 Findings Consistent with Post-Op Diagnosis Specimens Femoral head Description of Procedure I was present for the entire case. I assisted with patient positioning, prepping, draping, retraction, suctioning, wound closure, dressing application. Please refer to Dr. Farias's procedure note for full details. I attest to the content of the Intraoperative Record and any orders documented therein. Any exceptions are noted below.
[2024-12-18] MEDS ORDERED: DexMEDEtomidine HCL IV 100 MCG/ML VIAL IV ONE (13:04)
--- NOTE | 2024-12-18 14:17 | XRay Report ---
EXAMINATION: X-ray pelvis 1-2 view routine CLINICAL HISTORY: Postop left hip PRIORS: CT 12/17/2024, plain film 12/16/2024 TECHNIQUE: AP and lateral view hip FINDINGS: Moderate osseous demineralization is noted. A left total hip arthroplasty is present, appearing in the interval. Femoral stem is unremarkable. Alignment is near-anatomic. No periprosthetic fracture. Moderate osseous demineralization noted. Pubic symphysis not widened. Surgical clips in the lower pelvis. Overlying bowel gas stool and soft tissue obscures fine bone detail. IMPRESSION: Left total hip arthroplasty with near anatomic alignment. Electronically signed by Clara Pabon 12-18-2024 2:17 PM
--- NOTE | 2024-12-18 14:29 | Anesthesiology Progress Note ---
Date of Service December 18, 2024 Anesthesia Post Procedure Vital Signs Vital Signs: Temp Pulse Pulse Pulse Resp BP BP 12/18/24 14:05 36.4 C L 88 18 120/66 12/18/24 13:55 86 21 112/68 12/18/24 13:45 90 25 H 109/70 12/18/24 13:35 86 18 120/82 12/18/24 13:25 86 20 144/74 H 12/18/24 13:20 98 H 20 12/18/24 13:16 36.2 C L 105 H 20 136/80 12/18/24 10:52 12/18/24 08:04 37.1 C 95 H 16 176/81 H 12/18/24 08:00 12/18/24 07:29 90 12/18/24 04:15 36.8 C 94 H 16 155/74 H 12/18/24 04:14 88 12/18/24 03:02 12/18/24 00:51 103 H 12/17/24 23:44 97 H 24 169/97 H 12/17/24 23:41 104 H 24 186/105 H 12/17/24 23:39 107 H 24 196/103 H 12/17/24 22:26 92 H 12/17/24 20:22 36.6 C 93 H 18 158/68 H 12/17/24 16:12 12/17/24 15:25 36.6 C 89 18 132/83 Pulse Ox Pulse Ox O2 Del Method O2 Del Method O2 Flow Rate O2 Flow Rate FiO2 12/18/24 14:05 92 Oxymask 12/18/24 13:55 92 BiPAP 60 12/18/24 13:45 89 L BiPAP 60 12/18/24 13:35 87 L BiPAP 60 12/18/24 13:25 95 BiPAP 60 12/18/24 13:20 95 12/18/24 13:16 95 BiPAP 60 12/18/24 10:52 Oxymask 12 12/18/24 08:04 95 Oxymask 12 12/18/24 08:00 91 Oxymask 12 12/18/24 07:29 12/18/24 04:15 90 Oxymask 12/18/24 04:14 12/18/24 03:02 Oxymask 8 12/18/24 00:51 91 Oxymask 10 12/17/24 23:44 94 Oxymask 8 12/17/24 23:41 96 Non-rebreather 15 12/17/24 23:39 94 Non-rebreather 15 12/17/24 22:26 12/17/24 20:22 94 Oxymask 4 12/17/24 16:12 93 Nasal Cannula 4 12/17/24 15:25 93 Nasal Cannula 4 Pain Intensity Left Hip: Pain Intensity: 8 Transfer of Care Handoff Completed per policy Notes Mental Status: alert / awake / arousable (confused, pleasant ) Patient Amnestic to Procedure: Yes Nausea / Vomiting: adequately controlled Pain: adequately controlled Airway Patency, RR, SpO2: stable & adequate BP & HR: stable & adequate Hydration State: stable & adequate Anesthetic Complications: see Notes below Notes: pt extubated in OR to BiPAP d/t tachypnea and hypoxia. weaned off BiPAP to O2 mask in PACU. Continued high levels of O2 supplementation. Coordinated transfer care with hospitalist service and will go to PCU.
[2024-12-18 14:31] LABS: iSTAT Allen Test Pass; iSTAT Art Bld Gas pCO2 Correct 23 mmHg (35-46); iSTAT Art Bld Gas pH Corrected 7.527 (7.35-7.45); iSTAT Arterial Blood Gas HCO3 19 meg/L (19-24); iSTAT Arterial Blood Gas pCO2 24 mmHg (35-46); iSTAT Arterial Blood Gas pH 7.52 (7.35-7.45); iSTAT Arterial Blood Gas pO2 100 mmHg (80-95); iSTAT Arterial Blood Gas pO2 C 96; iSTAT Carbon Dioxide 20 mmol/L (24-31); iSTAT FiO2 60 %; iSTAT Hematocrit 29 % (42-52); iSTAT Hemoglobin 9.9 g/dl (14.0-18.0); iSTAT Potassium 4.6 mmol/L (3.3-5.0); iSTAT Sample Type Arterial; iSTAT Site R Radial; iSTAT Sodium 130 mmol/L (135-144); iSTAT SpO2 94
[2024-12-18] MEDS: DOCUSATE SODIUM/SENNA 50/8.6MG TAB PO SCH (17:06)
--- NOTE | 2024-12-18 18:14 | Communication Note ---
Date of Service: December 18, 2024 Patient was seen in the PACU immediately postoperatively. Manage to be extubated however O2 sats in the low 80s on oxy mask immediately postoperatively. BiPAP applied immediately on arrival into the PACU and O2 sats improved to 97% relatively quickly. ABG taken on BiPAP with pH 7.515, PaCO2 of 23, PaO2 of 100 with SpO2 99% on 11/05. He was placed back on a 12 L oxy mask with O2 sats of 92%. He appeared to be stable on this and was transferred to the PCU. Again he was reexamined in the PCU and appears to be much more alert than preoperatively. Reportedly needing one-to-one or with his daughter in the room to stop him picking at his mask, IV, cushions etc... No need for medications at this time. Will continue on acetaminophen but switch to PO routinely. Tried to avoid opiates if possible but Dilaudid remains ordered at a reduced dose. Use incentive spirometer hourly. Senokot prescribed for constipation, will add MiraLAX tonight if no BM as abdominal distention appears to be playing a significant part of his poor inspiratory effort.
[2024-12-18] MEDS: POLYETHYLENE (MIRALAX) 17 GM PACK PO SCH (20:43)
[2024-12-18] MEDS: ACETAMINOPHEN 500 MG TAB PO SCH (20:45)
[2024-12-18] MEDS ORDERED: DOCUSATE SODIUM/SENNA 50/8.6MG TAB PO SCH (21:00)
[2024-12-19] MEDS: KETOROLAC TROMETHAMINE 15 MG/ML VIAL IV ONE (06:22)
[2024-12-19 07:08] LABS: Basophils # (auto) 0.02 K/uL (0.00-0.20); Basophils % (auto) 0.2 %; Eosinophils # (auto) 0.01 K/uL (0.00-0.50); Eosinophils % (auto) 0.1 %; Hematocrit (blood only) 30.8 % (42.0-52.0); Hemoglobin 9.7 g/dl (14.0-18.0); Immature Granulocytes # (auto) 0.08 K/uL (0.01-0.20); Immature Granulocytes % (auto) 0.6 %; Lymphocytes # (auto) 1.12 K/uL (1.20-3.40); Mean Corpuscular Hemoglobin 26.1 pg (25.0-34.0); Mean Corpuscular Hgb Conc 31.5 g/dL (32.0-36.0); Mean Platelet Volume 9.4 fL (9.4-12.4); Monocytes # (auto) 1.13 K/uL (0.11-0.59); Neutrophils # (auto) 10.15 K/uL (1.40-6.50); Neutrophils % (auto) 81.1 %; Platelet Count 213 K/uL (130-400); RDW Coefficient of Variation 16.2 % (11.5-14.5); Red Blood Count 3.71 M/uL (4.70-6.10); White Blood Count 12.51 K/ul (4.8-10.8)
[2024-12-19 07:30] LABS: BUN Creatinine Ratio 16.8 (10-20); Calcium 8.7 mg/dl (8.6-10.3); Creatinine Clr Calc Pharmacy 29.7 ml/min; Potassium 4.5 mmol/L (3.5-5.1)
--- NOTE | 2024-12-19 07:41 | Hospitalist Progress Note ---
Date of Service December 19, 2024 Assessment & Plan (1) Fall: (2) Closed hip fracture: (3) Paroxysmal atrial fibrillation: (4) Mixed Alzheimer's and vascular dementia: (5) Acute respiratory failure with hypoxia: (6) Postoperative anemia: Plan Patient is an 84-year-old male with past medical history of Alzheimer's and vascular dementia, CKD stage III, CVA, PE, A-fib on Eliquis, history of lung and prostate cancer s/p surgical removal, and anemia. Patient came into the ED via EMS from [facility] after an unwitnessed fall and was found to have a left femoral neck fracture. #left femoral neck fracture/fall s/p unwitnessed fall - patient uses wheelchair and walker at baseline S/p left bipolar prosthesis 12/18 PT OT pending for today Vitamin D 28.5 ng/ml, start supplementation Consider DEXA scan as outpatient #Acute respiratory failure with hypoxia / aspiration pneumonitis/pneumonia Suspect mostly secondary to opiate use and pain causing poor inspiratory effort pre-operatively. This is improved dramatically overnight following his hip operation. We will continue antibiotics for aspiration for a total of 5 days but this can be switched to p.o. Augmentin as long as doing well tomorrow. Since he is going to rehabilitation he does not need to be on room air on discharge. Not yet had a bowel movement and abdominal distension likely contributing towards oxygen requirement. Senokot and MiraLAX started yesterday. Consider additional laxatives tomorrow if still no bowel movement. #Elevated Cr Probably dry prior to surgery as avoided IV fluids yesterday due to respiraotry status. Ideally would just push oral fluids but given he was awake much of last night and needing to sleep today will give 1L IV fluids to avoid worsening Cr #Paroxysmal A-fib Currently normal sinus rhythm Restarted on Eliquis Continue carvedilol perioperatively, although I am unclear why he is only taking this once a day - this appears to be the way it was prescribed last admission and from [employer] prescription monitor on tele #Alzheimer and vascular dementia Extremely hard of hearing - doing well with Head CT negative for acute changes promote good sleep-wake cycles - will start melatonin to help with this as he was apparently up most of last bleacher pulp for delirium Chronic stable diagnoses: GERD - continue pantoprazole Hx CVA - continue aspirin, Eliquis, carvedilol, Lipitor History of PE - restart Eliquis Anemia - hgb 9.7 post operative anemia, monitor with AM labs VTE ppx: Restarting Eliquis today per orthopedics Diet: Heart healthy Dispo: Stable for transfer to [facility], suspect tomorrow if he has placement at [facility] he will be able to return the for further rehabilitation Admission and Anticipated Discharge Date Admission Date: December 17, 2024 Anticipated date of discharge: 12/20/24 Subjective Doing extremely well all things considered. Sitting up on side of the bed eating breakfast. Oxygen requirement down to 4.5 L/min. Much more alert. Keen to start physical rehabilitation. No fevers or chills overnight. Physical Exam Constitutional: WD/WN, vitals as above ENMT: external ear and nose normal, oropharynx normal Respiratory: normal respiratory effort, lungs clear to auscultation Cardiovascular: RRR, no murmur, no edema Gastrointestinal (Abdomen): Inspection/Auscultation: abdomen normal to inspection and + abdomen distended Percussion/Palpation: abdomen soft; abdomen nontender Psychiatric: Orientation: alert and oriented to person Results & Data Results & Data Vital Signs (Past 12 Hours) Vital Signs Temp Pulse Pulse Resp BP Pulse Ox Pulse Ox 12/19/24 07:29 36.8 C 94 H 18 129/79 95 12/19/24 04:16 95 12/19/24 00:01 95 12/18/24 22:39 88 12/18/24 20:59 12/18/24 20:58 92 12/18/24 20:00 92 O2 Del Method O2 Del Method O2 Flow Rate O2 Flow Rate 12/19/24 07:29 Nasal Cannula 4.5 12/19/24 04:16 Nasal Cannula 4.5 12/19/24 00:01 Nasal Cannula 4.5 12/18/24 22:39 12/18/24 20:59 Nasal Cannula 5 12/18/24 20:58 Nasal Cannula 5 12/18/24 20:00 Nasal Cannula 5 PG Care Time/CCT Total # of Minutes Spent Total Time Spent with Patient: Total time spent is greater than 50% in coordination of care (as documented) at patient's floor/unit and/or counseling patient: Coding Level of Care Code 84861 SUB INP/OBS CARE 3/50MIN Diagnoses Fall W19.XXXA Encounter type: initial encounter Closed hip fracture S72.002A Encounter type: initial encounter Laterality: left Paroxysmal atrial fibrillation I48.0 Mixed Alzheimer's and vascular dementia G30.9; F01.50; F02.80 Acute respiratory failure with hypoxia J96.01 Postoperative anemia D64.9 (1) Fall Encounter type: initial encounter Qualified Code(s): W19.XXXA - Unspecified fall, initial encounter (2) Closed hip fracture Encounter type: initial encounter Laterality: left Qualified Code(s): S72.002A - Fracture of unspecified part of neck of left femur, initial encounter for closed fracture
[2024-12-19] MEDS: AMPICILLIN/SULBACTAM SOD 3,000 MG/100 ML BAG IV SCH (08:08)
[2024-12-19] MEDS: APIXABAN 5 MG TABLET PO SCH (08:09)
[2024-12-19] MEDS: CHOLECALCIFEROL 25 MCG (1000 UNITS) TAB PO SCH (08:09)
[2024-12-19] MEDS: PANTOprazole 40 MG TAB PO SCH (08:09)
--- NOTE | 2024-12-19 10:36 | Orthopedic Progress Note ---
Date of Service December 19, 2024 Assessment & Plan (1) Closed hip fracture: Plan: Status post left hip hemiarthroplasty with Dr. Alanis off postop day 1 Patient is overall doing well. He was able to work with PT/OT and stand and transfer to the bed without many issues. He has been having some respiratory issues but is doing better now with just Tylenol. Dressing left in place today. Foam tape can be removed tomorrow and leave silverlon in place. They are holding any oxycodone. Hip precautions for 12 weeks abduction pillow for 8 weeks. Continue with PT/OT. Weight-bear as tolerated with a walker/assistance as needed. Follow-up in 2 weeks in our clinic for Zipline removal. Case management for discharge needs. Medical care and DVT prophylaxis per medicine service. Admission and Anticipated Discharge Date Admission Date: December 17, 2024 Subjective Patient is sitting up in a chair. Reports that he is overall doing well. Pain is controlled. Denies any fevers, chills. Physical Exam Physical Exam: Dressing clean, dry and intact. Left in place today. Thigh and calf are soft and compressible. He is able to wiggle all of his toes and pump his ankles up and down. 5 out of 5 strength with dorsiflexion plantarflexion. He is able to flex and extend his knee without any pain. He can tolerate some light gentle passive range of motion with his hip. Sensation intact distally to light touch. 1+ dorsal pedal pulse present. Results & Data Vital Signs (Past 12 Hours) Vital Signs Temp Pulse Pulse Resp BP Pulse Ox Pulse Ox 12/19/24 08:52 94 H 12/19/24 07:53 12/19/24 07:29 36.8 C 94 H 18 129/79 95 12/19/24 04:16 95 12/19/24 00:01 95 12/18/24 22:39 88 O2 Del Method O2 Del Method O2 Flow Rate O2 Flow Rate 12/19/24 08:52 12/19/24 07:53 Nasal Cannula 4.5 12/19/24 07:29 Nasal Cannula 4.5 12/19/24 04:16 Nasal Cannula 4.5 12/19/24 00:01 Nasal Cannula 4.5 12/18/24 22:39 Laboratory Results 03/24/25 03/23/25 03/23/25 Range/Units 06:43 14:04 11:30 WBC 12.51 H (4.8-10.8) K/ul RBC 3.71 L (4.70-6.10) M/uL Hgb 9.7 L (14.0-18.0) g/dl POC Hgb 9.9 L (14.0-18.0) g/dl Hct 30.8 L (42.0-52.0) % POC Hct 29 L (42-52) % MCV 83.0 (80.0-100.0) fL MCH 26.1 (25.0-34.0) pg MCHC 31.5 L (32.0-36.0) g/dL RDW Std Deviation 48.0 H (36.4-46.3) fL RDW Coeff of Marely 16.2 H (11.5-14.5) % Plt Count 213 (130-400) K/uL MPV 9.4 (9.4-12.4) fL Immature Gran % (Auto) 0.6 % Neut % (Auto) 81.1 % Lymph % (Auto) 9.0 % [place] % (Auto) 9.0 % Eos % (Auto) 0.1 % Baso % (Auto) 0.2 % Neut # (Auto) 10.15 H (1.40-6.50) K/uL Lymph # (Auto) 1.12 L (1.20-3.40) K/uL [place] # (Auto) 1.13 H (0.11-0.59) K/uL Eos # (Auto) 0.01 (0.00-0.50) K/uL Baso # (Auto) 0.02 (0.00-0.20) K/uL Immature Gran # (Auto) 0.08 (0.01-0.20) K/uL Specimen Type Arterial Sample Site R Radial POC pH 7.52 H* (7.35-7.45) POC pCO2 24 L (35-46) mmHg POC pO2 100 H (80-95) mmHg POC HCO3 19 (19-24) akilah/L POC Total CO2 20 L (24-31) mmol/L POC Base Excess -4.0 (-9-1.8) akilah/L O2 Sat Pulse Oximetry 94 ABG pH (Temp Correct) 7.527 H* (7.35-7.45) ABG pCO2 (Temp Corrct 23 L (35-46) mmHg POC ABG pO2 at Pt Temp 96 POC ABG O2 Sat 99.0 H (90-95) % Chele Test Pass O2 Delivery Device BIPAP POC FiO2 60 % EPAP 8 IPAP 14 POC Sodium 130 L (135-144) mmol/L Sodium 132 L (136-145) mmol/L POC Potassium 4.6 (3.3-5.0) mmol/L Potassium 4.5 (3.5-5.1) mmol/L Chloride 98 (98-107) mmol/L Carbon Dioxide 24 (21-32) mmol/L Anion Gap 10 (3-11) BUN 27 H (6-23) mg/dl Creatinine 1.61 H D (0.6-1.4) mg/dl Est Cr Clr Drug Dosing 29.7 ml/min eGFR 41.39 BUN/Creatinine Ratio 16.8 (10-20) Glucose 117 H (70-99(Fasting)) mg/dl Calcium 8.7 (8.6-10.3) mg/dl Blood Type B Positive Antibody Screen NEGATIVE (1) Closed hip fracture Encounter type: initial encounter Laterality: left Qualified Code(s): S72.002A - Fracture of unspecified part of neck of left femur, initial encounter for closed fracture
[2024-12-19] MEDS: LACTATED RINGER'S 1,000 ML IV SCH (12:20)
[2024-12-19] MEDS: ADVANCED PROBIOTIC 625 MG CAPSULE PO SCH (15:28)
[2024-12-19] MEDS: carvediloL 6.25 MG TAB PO SCH (17:11)
[2024-12-19] MEDS: AMOXICILLIN/CLAVULANATE 875 MG TAB PO SCH (17:11)
[2024-12-19] MEDS ORDERED: MELATONIN 3 MG TAB PO PRN (18:34)
[2024-12-19] MEDS ORDERED: POLYETHYLENE (MIRALAX) 17 GM PACK PO PRN (18:36)
[2024-12-19] MEDS: OLANZapine 10 MG/2.1 ML SDV IM STA (19:48)
[2024-12-19] MEDS: QUEtiapine FUMARATE 25 MG TABLET PO ONE (19:49)
[2024-12-19] MEDS: MELATONIN 3 MG TAB PO SCH (21:00)
[2024-12-19] MEDS: ASPIRIN 81 MG ECTAB PO SCH (21:00)
[2024-12-19] MEDS: GABAPENTIN 100 MG CAP PO ONE (22:37)
[2024-12-20] MEDS: OLANZapine 10 MG/2.1 ML SDV IM STA (06:14)
[2024-12-20] MEDS: LORazepam 2 MG/1 ML VIAL IV STA (08:19)
--- NOTE | 2024-12-20 10:32 | Orthopedic Progress Note ---
Date of Service December 20, 2024 Assessment & Plan (1) Closed hip fracture: Plan: Status post left hip hemiarthroplasty with Dr. Alanis off postop day [address]. Hip precautions for 12 weeks abduction pillow for 8 weeks. Continue with PT/OT. Weight-bear as tolerated with a walker/assistance as needed. Follow-up in 2 weeks in our clinic for Zipline removal. (Amandeep Villa PA-C 01/02/25 @ 11 AM) Case management for discharge needs. Medical care and DVT prophylaxis (Eliquis) per medicine service. With question contact our clinic at [phone] Admission and Anticipated Discharge Date Admission Date: December 17, 2024 Subjective This 84-year-old male is day 2 status post left hip hemiarthroplasty (cemented). The patient apparently became combative last evening. He is currently in soft restraints and received IV Ativan this morning. He is currently somnolent. His family and nursing staff asked that the patient not be aroused. He was breathing with normal respirations. Was not able to obtain a review of systems due to his somnolence. Review of Systems Review of Systems: Unobtainable due to reduced consciousness Physical Exam Physical Exam: Left hip: Silverlon dressing was clean dry intact and left in place. I did not attempt to manipulate the patient's lower extremity because I did not want to awaken him due to his combative nature. His peripheral pulses were 2+. Results & Data Vital Signs (Past 12 Hours) Vital Signs Temp Pulse Resp BP Pulse Ox O2 Del Method O2 Flow Rate 12/20/24 08:40 36.8 C 94 H 18 137/72 92 Oxymask 8 12/20/24 07:47 Oxymask 8 12/20/24 03:38 36.5 C 92 H 18 131/68 96 Oxymask 8 12/20/24 00:52 36.6 C 87 20 95/62 L 92 Oxymask 8.0 12/19/24 23:50 Nasal Cannula 6 Diagnostic Findings Laboratory Results WBC 12.51 K/ul (4.8-10.8) H 12/19/24 06:43 RBC 3.71 M/uL (4.70-6.10) L 12/19/24 06:43 Hgb 9.7 g/dl (14.0-18.0) L 12/19/24 06:43 POC Hgb 9.9 g/dl (14.0-18.0) L 12/18/24 14:04 Hct 30.8 % (42.0-52.0) L 12/19/24 06:43 POC Hct 29 % (42-52) L 12/18/24 14:04 MCV 83.0 fL (80.0-100.0) 12/19/24 06:43 MCH 26.1 pg (25.0-34.0) 12/19/24 06:43 MCHC 31.5 g/dL (32.0-36.0) L 12/19/24 06:43 RDW Std Deviation 48.0 fL (36.4-46.3) H 12/19/24 06:43 RDW Coeff of Marely 16.2 % (11.5-14.5) H 12/19/24 06:43 Plt Count 213 K/uL (130-400) 12/19/24 06:43 MPV 9.4 fL (9.4-12.4) 12/19/24 06:43 Immature Gran % (Auto) 0.6 % 12/19/24 06:43 Neut % (Auto) 81.1 % 12/19/24 06:43 Lymph % (Auto) 9.0 % 12/19/24 06:43 [place] % (Auto) 9.0 % 12/19/24 06:43 Eos % (Auto) 0.1 % 12/19/24 06:43 Baso % (Auto) 0.2 % 12/19/24 06:43 Neut # (Auto) 10.15 K/uL (1.40-6.50) H 12/19/24 06:43 Lymph # (Auto) 1.12 K/uL (1.20-3.40) L 12/19/24 06:43 [place] # (Auto) 1.13 K/uL (0.11-0.59) H 12/19/24 06:43 Eos # (Auto) 0.01 K/uL (0.00-0.50) 12/19/24 06:43 Baso # (Auto) 0.02 K/uL (0.00-0.20) 12/19/24 06:43 Immature Gran # (Auto) 0.08 K/uL (0.01-0.20) 12/19/24 06:43 PT 11.7 Seconds (9.0-12.0) 12/16/24 21:50 INR 1.1 (0.9-1.1) 12/16/24 21:50 APTT 27 Seconds (21-31) 12/16/24 21:50 PTT Ratio 1.0 12/16/24 21:50 Specimen Type Arterial 12/18/24 14:04 Sample Site R Radial 12/18/24 14:04 POC pH 7.52 (7.35-7.45) H* 12/18/24 14:04 POC pCO2 24 mmHg (35-46) L 12/18/24 14:04 POC pO2 100 mmHg (80-95) H 12/18/24 14:04 POC HCO3 19 akilah/L (19-24) 12/18/24 14:04 POC Total CO2 20 mmol/L (24-31) L 12/18/24 14:04 POC Base Excess -4.0 akilah/L (-9-1.8) 12/18/24 14:04 O2 Sat Pulse Oximetry 94 12/18/24 14:04 ABG pH (Temp Correct) 7.527 (7.35-7.45) H* 12/18/24 14:04 ABG pCO2 (Temp Corrct 23 mmHg (35-46) L 12/18/24 14:04 POC ABG pO2 at Pt Temp 96 12/18/24 14:04 POC ABG O2 Sat 99.0 % (90-95) H 12/18/24 14:04 Chele Test Pass 12/18/24 14:04 VBG pH 7.34 (7.36-7.41) L 12/18/24 01:46 VBG pCO2 51 mmHg (38-50) H 12/18/24 01:46 VBG pO2 40 mmHg 12/18/24 01:46 VBG HCO3 28 mmol/L 12/18/24 01:46 VBG O2 Saturation 66.6 % 12/18/24 01:46 VBG Base Excess 0.9 mEq/L 12/18/24 01:46 O2 Delivery Device BIPAP 12/18/24 14:04 POC FiO2 60 % 12/18/24 14:04 EPAP 8 12/18/24 14:04 IPAP 14 12/18/24 14:04 POC Sodium 130 mmol/L (135-144) L 12/18/24 14:04 Sodium 132 mmol/L (136-145) L 12/19/24 06:43 POC Potassium 4.6 mmol/L (3.3-5.0) 12/18/24 14:04 Potassium 4.5 mmol/L (3.5-5.1) 12/19/24 06:43 POC Chloride 101 mmol/L (101-112) 12/16/24 22:03 Chloride 98 mmol/L (98-107) 12/19/24 06:43 Carbon Dioxide 24 mmol/L (21-32) 12/19/24 06:43 POC Total CO2 23 mmol/L (24-31) L 12/16/24 22:03 Anion Gap 10 (3-11) 12/19/24 06:43 POC Anion Gap 18.0 mmol/L (16-25) 12/16/24 22:03 POC BUN 10 mg/dl (7-18) 12/16/24 22:03 BUN 27 mg/dl (6-23) H 12/19/24 06:43 Creatinine 1.45 mg/dl (0.6-1.4) H 12/19/24 22:33 POC Creatinine 1.3 mg/dl (0.6-1.3) 12/16/24 22:03 Est Cr Clr Drug Dosing 33.0 ml/min 12/19/24 22:33 eGFR 46.93 12/19/24 22:33 BUN/Creatinine Ratio 16.8 (10-20) 12/19/24 06:43 Glucose 117 mg/dl (70-99(Fasting)) H 12/19/24 06:43 POC Glucose 125 mg/dl (70-99) H 12/17/24 23:38 POC Glucose (other) 99 mg/dl (70-99) 12/16/24 22:03 Lactate 1.6 mmol/L (0.4-2.0) 12/18/24 02:39 Calcium 8.7 mg/dl (8.6-10.3) 12/19/24 06:43 POC Ioniz Calcium Eliza 1.13 mmol/l (1.12-1.32) 12/16/24 22:03 Magnesium 1.8 mg/dl (1.7-2.4) 12/17/24 03:07 Total Bilirubin 0.4 mg/dl (0.2-1.0) 12/16/24 21:50 AST 18 U/L (13-39) 12/16/24 21:50 ALT 13 U/L (7-52) 12/16/24 21:50 Alkaline Phosphatase 79 U/L (34-104) 12/16/24 21:50 Total Protein 6.3 gm/dl (6.0-8.3) 12/16/24 21:50 Albumin 3.8 gm/dl (3.4-5.0) 12/16/24 21:50 Globulin 2.5 gm/dl (2.5-4.0) 12/16/24 21:50 Albumin/Globulin Ratio 1.5 (0.9-2) 12/16/24 21:50 Lipase 40 U/L (11-82) 12/16/24 21:50 25-OH Vitamin D Total 28.5 ng/ml (30-100) L 12/18/24 06:12 Procalcitonin 0.18 ng/ml (0-0.5) 12/18/24 02:39 Urine Color Yellow 12/17/24 03:00 Urine Appearance Clear (Clear) 12/17/24 03:00 Urine pH 6.0 (4.5-7.5) 12/17/24 03:00 Ur Specific [place] 1.015 (1.000-1.030) 12/17/24 03:00 Urine Protein Negative (Negative) 12/17/24 03:00 Urine Glucose (UA) Negative (Negative) 12/17/24 03:00 Urine Ketones Trace (Negative) H 12/17/24 03:00 Urine Blood Negative (Negative) 12/17/24 03:00 Urine Nitrite Negative (Negative) 12/17/24 03:00 Urine Bilirubin Negative (Negative) 12/17/24 03:00 Urine Urobilinogen Negative (Negative) 12/17/24 03:00 Ur Leukocyte Esterase Negative (Negative) 12/17/24 03:00 Nasal Screen MRSA (PCR) Negative (Negative) 12/18/24 02:30 SARS-CoV-2 (PCR) NEGATIVE (Negative) 12/17/24 00:43 Influenza Type A (PCR) Negative (Neg) 12/17/24 00:43 Influenza Type B (PCR) Negative (Neg) 12/17/24 00:43 RSV (RT-PCR) Negative (Neg) 12/17/24 00:43 Blood Type B Positive 12/18/24 11:30 Antibody Screen NEGATIVE 12/18/24 11:30 Impressions Abdomen/Pelvis CT 12/16/24 21:55 Exam(s): CT ABDOMEN + PELVIS Without Contrast EXAM: CT Abdomen and Pelvis Without Intravenous Contrast CLINICAL HISTORY: Reason for exam: fall. TECHNIQUE: Axial computed tomography images of the abdomen and pelvis without intravenous contrast. CTDI is 36 mGy and DLP is 624 mGy-cm. Automated exposure control was utilized for the study. A dose lowering technique was utilized adhering to the principles of ALARA. COMPARISON: CT chest: 11/19/2024 FINDINGS: Lung bases: Unremarkable. No mass. No consolidation. Mediastinum: There is a moderate hiatal hernia. ABDOMEN: Liver: Unremarkable. Gallbladder and bile ducts: Unremarkable. No calcified stones. No ductal dilation. Pancreas: Unremarkable. No ductal dilation. Spleen: Unremarkable. No splenomegaly. Adrenals: Unremarkable. No mass. Kidneys and ureters: There is a hyperdense right renal cyst. There are additional bilateral renal cysts. No hydronephrosis or obstructing urinary calculi. Stomach and bowel: There are numerous sigmoid colon diverticula. No active diverticular inflammatory process. No free air or abscess. No obstruction. No mucosal thickening. PELVIS: Appendix: No findings to suggest acute appendicitis. Bladder: Unremarkable. No stones. Reproductive: The prostate has been removed. ABDOMEN and PELVIS: Intraperitoneal space: See above. Bones/joints: There is advanced multilevel thoracal lumbar spondylosis. There is partial L4-5 and L5-S1 fusion. There is mild grade 1 anterolisthesis of L3-4. There are vacuum discogenic changes at L1-2 through L3-4. There is advanced T12-L1 degenerative disc disease with a marginal disc osteophyte complex. No acute fracture. No dislocation. Soft tissues: Unremarkable. Vasculature: There are scattered aortic atherosclerotic calcifications.. No abdominal aortic aneurysm. Lymph nodes: Unremarkable. No enlarged lymph nodes. IMPRESSION: 1. No acute findings. 2. Advanced thoracolumbar spondylosis with multilevel discogenic changes and L4-5 and L5-S1 fusion. No acute fracture or dislocation. Electronically signed by: Nikita Curran MD 12/17/24 00:[address] 12/16/24 21:55 Exam(s): CT C SPINE EXAM: CT Cervical Spine Without Intravenous Contrast CLINICAL HISTORY: Reason for exam: fall. TECHNIQUE: Axial computed tomography images of the cervical spine without intravenous contrast. CTDI is 36 mGy and DLP is 624 mGy-cm. Automated exposure control was utilized for the study. A dose lowering technique was utilized adhering to the principles of ALARA. COMPARISON: No relevant prior studies available. FINDINGS: Vertebrae: There is mild grade 1 anterolisthesis at C2-3 secondary to asymmetric left-sided facet arthrosis. There is generalized decreased bony mineralization. There is mild grade 1 anterolisthesis at C7/T1. No acute fracture. Discs/spinal canal/neural foramina: There is asymmetric left-sided foraminal narrowing at C2-3. There is bilateral moderate to severe C3-4, C4-5, C5-6 and C6-7 foraminal stenosis. There is mild to moderate spinal stenosis. There is severe multilevel degenerative disc disease throughout the entire cervical spine. Soft tissues: Unremarkable. IMPRESSION: 1. No acute fracture. 2. Severe multilevel degenerative disc disease throughout the cervical spine. Electronically signed by: Nikita Curran MD 12/17/24 00:[address] 12/16/24 21:55 Exam(s): CT CHEST Without Contrast EXAM: CT Chest Without Intravenous Contrast CLINICAL HISTORY: Reason for exam: fall. TECHNIQUE: Axial computed tomography images of the chest without intravenous contrast. CTDI is 36 mGy and DLP is 624 mGy-cm. Automated exposure control was utilized for the study. A dose lowering technique was utilized adhering to the principles of ALARA. COMPARISON: CTA chest: 03/12/2020 FINDINGS: Lungs: There is mild cystic emphysematous change in the upper lobes. Surgical clips are noted in the right hilum. No consolidation. No pulmonary mass or suspicious nodule. Pleural space: Unremarkable. No pneumothorax. No significant effusion. Heart: There are scattered coronary artery calcifications. There are mild aortic arch calcifications. No cardiomegaly. No significant pericardial effusion. Mediastinum: There is a moderate hiatal hernia. Bones/joints: There is a total left shoulder replacement. There is multilevel thoracic degenerative disc space narrowing. There is a partial right posterior rib resection. No acute fracture. No dislocation. Soft tissues: Unremarkable. Vasculature: See above. Lymph nodes: Unremarkable. No enlarged lymph nodes. Other findings: . IMPRESSION: 1. No acute intrathoracic abnormality. 2. Mild cystic emphysematous change in the upper lobes. 3. Moderate hiatal hernia. Electronically signed by: Nikita Curran MD 12/17/24 00:43 AM Chest X-Ray 12/16/24 21:55 Exam(s): XR CXR 1 VIEW EXAM: XR Chest, 1 View CLINICAL HISTORY: Reason for exam: fall. TECHNIQUE: Frontal view of the chest. COMPARISON: No relevant prior studies available. FINDINGS: Lungs: The lungs are otherwise clear. There is mild linear left basilar atelectasis. Pleural space: Unremarkable. No pneumothorax. Heart: There is a cardiac implant monitor over the left chest. No cardiomegaly. Mediastinum: Unremarkable. Normal mediastinal contour. Bones/joints: There is a total left shoulder replacement. No acute fracture. Upper abdomen: There is mild elevation of right hemidiaphragm. IMPRESSION: Mild linear left basilar atelectasis. Electronically signed by: Nikita Curran MD 12/17/24 00:[address] 12/16/24 21:55 Exam(s): CT HEAD Without Contrast EXAM: CT Head Without Intravenous Contrast CLINICAL HISTORY: Reason for exam: fall, eliquis. TECHNIQUE: Axial computed tomography images of the head/brain without intravenous contrast. CTDI is 36 mGy and DLP is 624 mGy-cm. Automated exposure control was utilized for the study. A dose lowering technique was utilized adhering to the principles of ALARA. COMPARISON: Prior head CT from November 19, 2024. FINDINGS: Brain: Unremarkable. No hemorrhage. Advanced nonspecific white matter changes. No edema. Vertebral basilar dolichoectasia. Ventricles: Moderate ventriculomegaly. Bones/joints: Unremarkable. No acute fracture. Soft tissues: Unremarkable. Sinuses: Unremarkable as visualized. No acute sinusitis. Mastoid air cells: Unremarkable as visualized. No mastoid effusion. IMPRESSION: No evidence of acute intracranial pathology. Electronically signed by: Tory Escalante MD 12/17/24 01:14 AM Hip/Pelvis X-Ray 12/16/24 21:55 Exam(s): XR HIP + PELVIS, 1 view EXAM: XR Left Hip With Pelvis When Performed, 2 or 3 Views CLINICAL HISTORY: Reason for exam: fall. TECHNIQUE: Two or three views of the left hip with pelvis when performed. COMPARISON: No relevant prior studies available. FINDINGS: Bones/joints: There is a left femoral neck fracture. There is lower lumbar degenerative disc disease. Soft tissues: There are surgical clips in the lower pelvis suggestive of prior prostatectomy. IMPRESSION: There is a left femoral neck fracture. Electronically signed by: Nikita Curran MD 12/17/24 00:31 AM Chest CTA 12/17/24 23:49 EXAM: CT angio chest PE protocol CLINICAL HISTORY: PE. TECHNIQUE: CT angiography of the chest was performed with and without intravenous contrast with the following protocol: axial images with, reconstructed coronal and sagittal images. Non-contrast images were initially acquired, followed by contrast-enhanced images in arterial and venous phases. 118 cc opti 320 Intravenous contrast was administered using automated injection techniques. Bolus tracking was employed to optimize arterial phase imaging. One of these 3D techniques was utilized: Maximum Intensity Pixel (MIP), 3D Reconstructed Images, Volume Rendered Images, Surface Shaded Rendering. One of the following dose reduction techniques was utilized for this exam: Automated exposure control, adjustment of the mA and/or kV according to patient size, and use of iterative reconstruction. DLP: 866.85mGy.cm. COMPARISON: CT chest 12/16/2024 21:53:47 SURFACE LAY OUT TECHNICIAN. FINDINGS: Aorta and Great Vessels: Ascending Aorta: Normal in caliber, no aneurysm, dissection, or significant atherosclerosis. Aortic Arch: Normal in caliber, no aneurysm, or dissection however atherosclerotic wall calcifications are seen. Descending Aorta: Normal in caliber, no aneurysm, or dissection however atherosclerotic wall calcifications are seen. Pulmonary Arteries: The main pulmonary artery and its branches are patent. No evidence of pulmonary embolism or significant stenosis. Heart: Cardiac size is enlarged. Pericardium: No pericardial effusion or thickening. Lungs and Pleura: Patches of consolidation are seen in the posterior segment of the right upper lobe and bilateral posterior basal segments of the lower lobes. Few scattered pneumatoceles/centrilobular emphysematous changes are seen in both lungs. Bilateral basal pleural effusion. Mediastinum: No mediastinal mass or abnormal lymphadenopathy. Normal appearance of the trachea and central bronchi. Hilar Structures: Hilar structures are normal without enlargement. Few surgical clips are seen in right hilum. Chest Wall: No mass lesions or abnormalities in the chest wall. Vascular Structures: Superior Vena Cava: Patent without evidence of stenosis or thrombus. Inferior Vena Cava: Patent without evidence of stenosis or thrombus. Bones and Soft Tissues: No fractures, lytic, or blastic lesions of the visualized bony structures. Significant age-related degenerative changes are seen. Left shoulder prosthesis is seen. No loosening or break. A large intracrural defect with intrathoracic herniation of the stomach. IMPRESSION: 1. No evidence of pulmonary embolism, or aortic aneurysm, or dissection. 2. Bilateral pulmonary consolidations with basal pleural effusions concerning acute infective/inflammatory lung disease. 3. Hiatal hernia. 4. In comparison to previous CT chests conducted 12/16/2024 pulmonary consolidations are interval new findings. Electronically signed by Abe Redman 12-18-2024 01:56 AM Pelvis X-Ray 12/18/24 13:10 EXAMINATION: X-ray pelvis 1-2 view routine CLINICAL HISTORY: Postop left hip PRIORS: CT 12/17/2024, plain film 12/16/2024 TECHNIQUE: AP and lateral view hip FINDINGS: Moderate osseous demineralization is noted. A left total hip arthroplasty is present, appearing in the interval. Femoral stem is unremarkable. Alignment is near-anatomic. No periprosthetic fracture. Moderate osseous demineralization noted. Pubic symphysis not widened. Surgical clips in the lower pelvis. Overlying bowel gas stool and soft tissue obscures fine bone detail. IMPRESSION: Left total hip arthroplasty with near anatomic alignment. Electronically signed by Clara Pabon 12-18-2024 2:17 PM (1) Closed hip fracture Encounter type: initial encounter Laterality: left Qualified Code(s): S72.002A - Fracture of unspecified part of neck of left femur, initial encounter for closed fracture
--- NOTE | 2024-12-20 10:48 | Hospitalist Progress Note ---
Date of Service December 20, 2024 Assessment & Plan (1) Fall: (2) Closed hip fracture: (3) Paroxysmal atrial fibrillation: (4) Mixed Alzheimer's and vascular dementia: (5) Acute respiratory failure with hypoxia: (6) Postoperative anemia: Plan Patient is an 84-year-old male with past medical history of Alzheimer's and vascular dementia, CKD stage III, CVA, PE, A-fib on Eliquis, history of lung and prostate cancer s/p surgical removal, and anemia. Patient came into the ED via EMS from [facility] after an unwitnessed fall and was found to have a left femoral neck fracture. S/p repair with Dr. Farias with 12/18. #left femoral neck fracture/fall S/p left bipolar prosthesis 12/[address] Farias PT OT - rec rehab, bed hold at [facility] Vitamin D 28.5 ng/ml - PO supplementation started, Consider DEXA scan as outpatient Anemia - post operative anemia, hemoglobin 8.3 today, no signs of active bleeding AM CBC and BMP #Alzheimer and vascular dementia Extremely hard of hearing. Head CT negative for acute changes Overnight 12/19 - agitation and delirium - requiring PO gabapentin, IM zyprexa, and IV ativan Suspect multifactorial - lack of sleep, anesthesia, delirium with recent living situation changes, possible infection - UA negative Of note, palliative was involved during recent admission 10/2024 on [facility] service, family was considering eventual transition to hospice at that time #Acute respiratory failure with hypoxia / aspiration pneumonitis/pneumonia Suspect mostly secondary to opiate use and pain causing poor inspiratory effort pre-operatively - improved following hip operation. Continue to wean O2 as tolerated chest x-ray 12/20: Showed early pneumonia versus atelectasiscontinue antibiotics, flutter valve as able Continue 5 day course of Augmentin Multiple BMs 12/19 - abdomen soft today #Elevated Cr Probably dry prior to surgery, given 1L post operatively Repeat creatinine is improving #Paroxysmal A-fib Restarted on Eliquis Continue carvedilol - increased to BID dosing, unclear why previously prescribed once a day GERD - continue pantoprazole Hx CVA / hx of PE - continue aspirin, Eliquis, carvedilol, Lipitor Dispo: continued inpatient stay DVT proh: Jose Family updated at bedside 12/20 Admission and Anticipated Discharge Date Admission Date: December 17, 2024 Subjective Patient seen lying in bed - sleeping, for the first time in 3 days. Did not awaken Hx obtained from daughter - just moved to [facility] a week ago, since September she has been with him 20/04 as primary career representative. Normally very pleasant and contient of urine. Has not been like this before. Does not wear oxygen at home or CPAP RN reports - multiple BMs last night, not redirectable this morning requiring more medications after IM zyprexa x2 Review of Systems Review of Systems: Unobtainable due to cognitive status Physical Exam Physical Exam: General: NAD, lying in bed, sleeping, soft limb restraints in place Resp: normal respiratory effort, lungs clear to auscultation anteriorly, weaned down to 5L during my encounter CV: RRR, no murmur, Abd: normal bowel sounds, soft Extremities: left hip dressing intact Results & Data Results & Data Vital Signs (Past 12 Hours) Vital Signs Temp Pulse Resp BP Pulse Ox O2 Del Method O2 Flow Rate 12/20/24 08:40 98.2 F 94 H 18 137/72 92 Oxymask 8 12/20/24 07:47 Oxymask 8 12/20/24 03:38 97.7 F 92 H 18 131/68 96 Oxymask 8 12/20/24 00:52 97.9 F 87 20 95/62 L 92 Oxymask 8.0 12/19/24 23:50 Nasal Cannula 6 Laboratory Results CBC, chemistry UA reviewed Diagnostic Findings chest x-ray reviewed PG Care Time/CCT Total # of Minutes Spent Total Time Spent with Patient: Total time spent is greater than 50% in coordination of care (as documented) at patient's floor/unit and/or counseling patient: Coding Level of Care Code 33588 SUB INP/OBS CARE 3/50MIN Diagnoses Fall W19.XXXA Encounter type: initial encounter Closed hip fracture S72.002A Encounter type: initial encounter Laterality: left Paroxysmal atrial fibrillation I48.0 Mixed Alzheimer's and vascular dementia G30.9; F01.50; F02.80 Acute respiratory failure with hypoxia J96.01 Postoperative anemia D64.9 (1) Fall Encounter type: initial encounter Qualified Code(s): W19.XXXA - Unspecified fall, initial encounter (2) Closed hip fracture Encounter type: initial encounter Laterality: left Qualified Code(s): S72.002A - Fracture of unspecified part of neck of left femur, initial encounter for closed fracture
--- NOTE | 2024-12-20 11:15 | XRay Report ---
XR chest 1V portable CLINICAL HISTORY: hypoxia, recent surgery COMPARISON STUDY: 12/16/2024 FINDINGS: Cardiac loop recorder remains. Stable left shoulder prosthesis. Stable cardiomegaly with mi ld pulmonary vascular congestion. Stable mild elevation of the right hemidiaphragm. Inspiration is sh allow. There is stable mild stranding at the left base with partial obscuration of the left hemidiaph ragm. No pneumothorax. IMPRESSION: Shallow inspiration with stable mild atelectasis versus early pneumonia left lung base. ACT 112: Negative or not required by law. Electronically signed by: J Carlos Gomez M.D. 12/20/2024 11:14 AM
[2024-12-20 11:37] LABS: Hematocrit (blood only) 25.8 % (42.0-52.0); Hemoglobin 8.3 g/dl (14.0-18.0); Mean Corpuscular Hemoglobin 26.6 pg (25.0-34.0); Mean Corpuscular Hgb Conc 32.2 g/dL (32.0-36.0); Mean Corpuscular Volume 82.7 fL (80.0-100.0); Mean Platelet Volume 9.5 fL (9.4-12.4); Platelet Count 161 K/uL (130-400); RDW Coefficient of Variation 16.4 % (11.5-14.5); RDW Standard Deviation 48.2 fL (36.4-46.3); Red Blood Count 3.12 M/uL (4.70-6.10); White Blood Count 7.58 K/ul (4.8-10.8)
[2024-12-20] MEDS: carvediloL 3.125 MG TAB PO SCH (11:51)
[2024-12-20 11:58] LABS: Appearance Urine Clear (Clear); Bilirubin Urine Negative (Negative); Blood Urine Negative (Negative); Color Urine Yellow; Glucose Urine UA Negative (Negative); Ketones Urine Negative (Negative); Leukocyte Esterase Urine Negative (Negative); Nitrite Urine Negative (Negative); Protein Urine Negative (Negative); Specific Gravity Urine 1.006 (1.000-1.030); Urobilinogen Urine Negative (Negative); pH Urine 5.5 (4.5-7.5)
[2024-12-20 12:07] LABS: Calcium 8.6 mg/dl (8.6-10.3); Potassium 4.2 mmol/L (3.5-5.1)
[2024-12-20 12:12] LABS: BUN Creatinine Ratio 14.5 (10-20); Creatinine Clr Calc Pharmacy 34.7 ml/min
[2024-12-20] MEDS: AMPICILLIN/SULBACTAM SOD 3,000 MG/100 ML BAG IV SCH (20:03)
[2024-12-20] MEDS: GABAPENTIN 100 MG CAP PO SCH (20:04)
[2024-12-20] MEDS: QUEtiapine FUMARATE 25 MG TABLET PO SCH (20:49)
[2024-12-21 07:03] LABS: Hematocrit (blood only) 26.7 % (42.0-52.0); Hemoglobin 8.3 g/dl (14.0-18.0); Mean Corpuscular Hemoglobin 26.1 pg (25.0-34.0); Mean Corpuscular Hgb Conc 31.1 g/dL (32.0-36.0); Mean Platelet Volume 9.9 fL (9.4-12.4); Platelet Count 165 K/uL (130-400); RDW Coefficient of Variation 16.9 % (11.5-14.5); RDW Standard Deviation 50.6 fL (36.4-46.3); Red Blood Count 3.18 M/uL (4.70-6.10); White Blood Count 6.49 K/ul (4.8-10.8)
[2024-12-21 07:17] LABS: BUN Creatinine Ratio 15.7 (10-20); Calcium 8.6 mg/dl (8.6-10.3); Creatinine Clr Calc Pharmacy 39.5 ml/min; Potassium 4.4 mmol/L (3.5-5.1)
--- NOTE | 2024-12-21 10:02 | Orthopedic Progress Note ---
Date of Service December 21, 2024 Assessment & Plan (1) Closed hip fracture: Plan: Status post left hip hemiarthroplasty with Dr. Alanis off postop day [address] Keep on at all times. Okay to shower with this dressing in place. Hip precautions for 12 weeks abduction pillow for 8 weeks. Continue with PT/OT. Weight-bear as tolerated with a walker/assistance as needed. Follow-up in 2 weeks in our clinic for Zipline removal. Case management for discharge needs. Medical care and DVT prophylaxis (Eliquis) per medicine service. With question contact our clinic at [phone] Admission and Anticipated Discharge Date Admission Date: December 17, 2024 Meggan Juares is sitting up in a chair. He has a one-to-one person with him. Nursing reports that he is much less confused today. Yesterday he was "out of it". He is currently sitting up in a chair. He has to get up to go to the bathroom. He is complaining of some left hip pain but nursing states he has not moved his hip in a day or 2. He was in a hip abduction brace all day yesterday. Denies any swelling. Denies any numbness or tingling in his left leg. Denies any pain at rest. States that he does get pain with movement. Physical Exam Musculoskeletal: Exam of his left hip: His Silverlon dressing is clean, dry and in place. Mild edema of the left thigh. No edema of the left knee with no joint effusion. No lower extremity edema except on the lateral aspect of his ankle. The ankle is nontender with palpation over any bony prominences. He tolerates active dorsiflexion plantarflexion of the left foot. Strength is 5/5. Distal pulses are 1+. Capillary refill is less than 2 seconds. Nontender in the calf. The calf is supple. Results & Data Vital Signs (Past 12 Hours) Vital Signs Temp Pulse Resp BP Pulse Ox O2 Del Method O2 Flow Rate 12/21/24 09:54 92 Nasal Cannula 2 12/21/24 09:50 84 L Room Air 12/21/24 09:35 97 Room Air 12/21/24 07:45 Nasal Cannula 6 12/21/24 07:34 36.2 C L 80 18 158/83 H 94 Oxymask 8 12/21/24 06:27 36.7 C 101 H 18 185/90 H 96 Nasal Cannula 8.0 Laboratory Results 12/21/24 12/20/24 12/20/24 06:19 Unknown 11:24 WBC 6.49 7.58 RBC 3.18 L 3.12 L Hgb 8.3 L 8.3 L Hct 26.7 L 25.8 L MCV 84.0 82.7 MCH 26.1 26.6 MCHC 31.1 L 32.2 RDW Std Deviation 50.6 H 48.2 H RDW Coeff of Marely 16.9 H 16.4 H Plt Count 165 161 MPV 9.9 9.5 Sodium 139 137 Potassium 4.4 4.2 Chloride 105 104 Carbon Dioxide 31 30 Anion Gap 3 3 BUN 19 20 Creatinine 1.21 1.38 Est Cr Clr Drug Dosing 39.5 34.7 eGFR 58.31 49.80 BUN/Creatinine Ratio 15.7 14.5 Glucose 82 86 Calcium 8.6 8.6 Urine Color Yellow Urine Appearance Clear Urine pH 5.5 Ur Specific [place] 1.006 Urine Protein Negative Urine Glucose (UA) Negative Urine Ketones Negative Urine Blood Negative Urine Nitrite Negative Urine Bilirubin Negative Urine Urobilinogen Negative Ur Leukocyte Esterase Negative (1) Closed hip fracture Encounter type: initial encounter Laterality: left Qualified Code(s): S72.002A - Fracture of unspecified part of neck of left femur, initial encounter for closed fracture
[2024-12-21] MEDS: AMPICILLIN/SULBACTAM SOD 3,000 MG/100 ML BAG IV ONE (10:27)
[2024-12-21] MEDS: CHLORASEPTIC (PHENOL) 1.4% SOLN 180 ML BTL MT PRN (12:00)
--- NOTE | 2024-12-21 14:37 | Hospitalist Progress Note ---
"Date of Service December 21, 2024 Assessment & Plan (1) Fall: (2) Closed hip fracture: (3) Paroxysmal atrial fibrillation: (4) Mixed Alzheimer's and vascular dementia: (5) Acute respiratory failure with hypoxia: (6) Postoperative anemia: Plan Patient is an 84-year-old male with past medical history of Alzheimer's and vascular dementia, CKD stage III, CVA, PE, A-fib on Eliquis, history of lung and prostate cancer s/p surgical removal, and anemia. Patient came into the ED via EMS from [facility] after an unwitnessed fall and was found to have a left femoral neck fracture. S/p repair with Dr. Farias with 12/18. #left femoral neck fracture/fall | Age-related osteoporosis with current pathologic fracture, left femur S/p left bipolar prosthesis 12/[address] Farias PT OT - rec rehab, bed hold at [facility] Vitamin D 28.5 ng/ml - PO supplementation started, Consider DEXA scan as outpatient Anemia - post operative anemia ( Acute blood loss anemia vs dilutional), hemoglobin 8.3 and stable #Alzheimer and vascular dementia Extremely hard of hearing. Head CT negative for acute changes Overnight 12/19 - agitation and delirium - requiring PO gabapentin, IM zyprexa, and IV ativan. has done better since getting sleep, p.o. Seroquel added at p.m. One-to-one and restraints have been discontinued Of note, palliative was involved during recent admission 10/2024 on [facility] service, family was considering eventual transition to hospice at that time #Acute respiratory failure with hypoxia / aspiration pneumonitis/pneumonia Suspect mostly secondary to opiate use and pain causing poor inspiratory effort pre-operatively - improved following hip operation. Continue to wean O2 as tolerated, now on 2L chest x-ray 12/20: Showed early pneumonia versus atelectasiscontinue antibiotics, flutter valve as able Continue 5 day course of Augmentin (has received intermitted unasyn when not taking pills) #KM - Probably dry prior to surgery, given 1L post operatively. Cr has returned to baseline. #Paroxysmal A-fib Restarted on Eliquis Continue carvedilol - increased to BID dosing, unclear why previously prescribed once a day GERD - continue pantoprazole Hx CVA / hx of PE - continue aspirin, Eliquis, carvedilol, Lipitor Dispo: continued inpatient stay DVT proh: Jose Montalvo updated at bedside 12/20 & 12/21 Admission and Anticipated Discharge Date Admission Date: December 17, 2024 Supervising Physician Co-Signing Physician Notes Attending Attestation - Chart reviewed, care plan d/w MARIELY Todd. I agree w/ the francisco components of her documentation except - * acute post-op pulmonary insufficiency likely captures his respiratory status better than post-op acute hypoxic resp failure * his pulmonary status improved dramatically in <24 hours post-op * remains on minimal amount of NC O2 at this time * finish course of abx for presumed aspiration pneumonitis Alberto Graves MD Subjective patient seen sitting up in the chair, family present at bedside. Per nursing staff, patient has been much more cooperative this morning, took most of his pills. Family reports that it is pretty typical from him to sleep til noon. His speech is not as clear as his baseline Stil requiring oxygen but has been able to be weened down today Review of Systems Review of Systems: All systems reviewed & are unremarkable except as noted in Subjective Physical Exam Physical Exam: General: NAD, sitting up In the chair, drowsy but arouses to verbal stimuli Resp: normal respiratory effort, lung sounds coarse, on 2 L CV: RRR, no murmur, Abd: normal bowel sounds, reviewed more distended today, but patient denies pain Extremities: left hip dressing intact alert and oriented to self Results & Data Results & Data Vital Signs (Past 12 Hours) Vital Signs Temp Pulse Resp BP Pulse Ox O2 Del Method O2 Flow Rate 12/21/24 09:54 92 Nasal Cannula 2 12/21/24 09:50 84 L Room Air 12/21/24 09:35 97 Room Air 12/21/24 07:45 Nasal Cannula 6 12/21/24 07:34 97.2 F L 80 18 158/83 H 94 Oxymask 8 12/21/24 06:27 98.1 F 101 H 18 185/90 H 96 Nasal Cannula 8.0 Laboratory Results CBC and chemistry reviewed PG Care Time/CCT Total # of Minutes Spent Total Time Spent with Patient: Total time spent is greater than 50% in coordination of care (as documented) at patient's floor/unit and/or counseling patient: Coding Level of Care Code 83159 SUB INP/OBS CARE 3/50MIN Diagnoses Fall W19.XXXA Encounter type: initial encounter Closed hip fracture S72.002A Encounter type: initial encounter Laterality: left Paroxysmal atrial fibrillation I48.0 Mixed Alzheimer's and vascular dementia G30.9; F01.50; F02.80 Acute respiratory failure with hypoxia J96.01 Postoperative anemia D64.9 (1) Fall Encounter type: initial encounter Qualified Code(s): W19.XXXA - Unspecified fall, initial encounter (2) Closed hip fracture Encounter type: initial encounter Laterality: left Qualified Code(s): S72.002A - Fracture of unspecified part of neck of left femur, initial encounter for closed fracture"
[2024-12-21] MEDS: KETOROLAC TROMETHAMINE 15 MG/ML VIAL IV ONE (21:28)
[2024-12-21] MEDS: GABAPENTIN 100 MG CAP PO ONE (22:24)
[2024-12-22 07:45] VITALS: RESP 17
[2024-12-22] MEDS ORDERED: NYSTATIN CR 15 GM TUBE EXT PRN (08:02)
--- NOTE | 2024-12-22 09:20 | Orthopedic Progress Note ---
Date of Service December 22, 2024 Assessment & Plan (1) Status post-operative repair of hip fracture: Plan: The patient was educated regarding today's findings as well as his daughter. The Silverlon was left in place. He may shower with this dressing in place. He was encouraged to participate with physical therapy. He is fine for discharge to a care home facility from an orthopedic standpoint. Continue the total hip precautions for 12 weeks. Continue the abduction pillow in bed for 8 weeks. Continue PT/OT. Weight-bear as tolerated with a walker. Postoperative follow- up appointments have been made. Continue with ice, oral pain medication, and oral anticoagulants. Call the office with any other concerns. Admission and Anticipated Discharge Date Admission Date: December 17, 2024 Subjective This 84-year-old male is seen today in his room. He is sitting in his bedside chair. He currently denies any significant hip pain. He is waiting for medical clearance to be transferred to a care home facility. No other complaints at this time. Physical Exam Physical Exam: General: Well-developed, well-nourished, elderly male, in no acute distress. Sitting in a bedside chair. Alert and conversive. His daughter is present today. Skin: Warm dry with good turgor. He has a postsurgical incision on the left hip. Silverlon dressing is in place. Minor bloody drainage distally in the bandage. There is nothing escaping the Silverlon. No significant ecchymosis or edema. Musculoskeletal: The patient has intact motor function of his left leg. He is able to extend the knee as well as plantarflex and dorsiflex the ankle and toes. He has some mild discomfort with palpation around the left hip. No complaints of pain with passive hip flexion nor rotation. Calf is soft and supple. No discomfort with palpation. Neurologic: Gross sensation is intact across the left leg by soft touch. Results & Data Vital Signs (Past 12 Hours) Vital Signs Temp Pulse Resp BP BP Pulse Ox O2 Del Method 12/22/24 07:54 Nasal Cannula 12/22/24 07:44 36.6 C 101 H 17 133/67 96 Room Air 12/22/24 03:08 36.6 C 93 H 20 150/70 H 91 Nasal Cannula 12/21/24 23:08 36.6 C 90 18 137/76 93 Nasal Cannula O2 Flow Rate 12/22/24 07:54 1 12/22/24 07:44 12/22/24 03:08 12/21/24 23:08 1
[2024-12-22 11:23] VITALS: TEMP 97.5; O2SAT 92
--- NOTE | 2024-12-22 11:46 | Discharge Summary ---
"Discharge Summary Date of Service December 22, 2024 Principal Dx & Hospital Course #1 = Principal Diagnosis (1) Fall: (2) Closed hip fracture: (3) Paroxysmal atrial fibrillation: (4) Mixed Alzheimer's and vascular dementia: (5) Acute respiratory failure with hypoxia: (6) Postoperative anemia: Plan #left femoral neck fracture/fall | Age-related osteoporosis with current pathologic fracture, left femur | Acute blood loss anemia vs dilutional Patient is an 84-year-old male with past medical history of Alzheimer's and vascular dementia, CKD stage III, CVA, PE, A-fib on Eliquis, history of lung and prostate cancer s/p surgical removal, and anemia. Patient came into the ED via EMS from [facility] after an unwitnessed fall and was found to have a left femoral neck fracture. S/p repair with Dr. Farias with 12/18. Vit D level was low and started on oral supplementation. Mor had a poor reaction to anesthesia, requiring IM zyprexa for sedation and 1:1. Thankfuly with time, he has returned to his baseline mental status. PT/OT recommend rehab and discharge back to [facility] for this. Consider outpatient DEXA. #Alzheimer and vascular dementia - Head CT negative for acute changes. Initated on seroquel to help maintain sleep wake cycles. #Acute respiratory failure with hypoxia / aspiration pneumonitis/pneumonia Suspect mostly secondary to opiate use and pain causing poor inspiratory effort pre-operatively - improved following hip operation. chest x-ray 12/20: Showed early pneumonia versus atelectasis - complete 5 day course of Augmentin (2 doses left at discharge) #KM - Probably dry prior to surgery, given 1L post operatively. Cr has returned to baseline. #Paroxysmal A-fib - Continue Eliquis, carvedilol changed to BID dosing (unclear why it was ordered daily, prior) GERD - continue pantoprazole Hx CVA / hx of PE - continue aspirin, Eliquis, carvedilol, Lipitor Dispo: discharge to [facility] today Family updated at bedside 12/20 & 12/21 Notes For Next Care Provider consider outpatient dexa Medication Changes From Visit carvedilol BID started seroquel Admission HPI Per Admitting Provider Patient is an 84-year-old male with past medical history of Alzheimer's and vascular dementia, CKD stage III, CVA, PE, A-fib on Eliquis, history of lung and prostate cancer s/p surgical removal, and anemia. Patient came into the ED via EMS from [facility] after an unwitnessed fall and was found to have a left femoral neck fracture. he is being admitted for possible surgical management, holding Eliquis and aspirin, orthopedics team to evaluate in the a.m., PT/OT eval's ordered. Was recently hospitalized 11/19 to 11/28 due to acute gastroenteritis 2/2 norovirus and anemia. PT/OT recommended rehab at this point however peer to peer was denied and patient was discharged home. Patient now resides at [facility] with his . Patient seen at bedside with his son present. Patient is extremely hard of hearing and did not have his hearing aids discharged, he stated he is tired right now, denies any pain after receiving 75 mcg of fentanyl and 4 Mg of morphine in ED. Patient's son provided the following history. He stated that the fall was unwitnessed but when he was found, his pants around his ankles so it is suspected that he tripped due to this. patient received all of his medications today including his evening medications of aspirin and Eliquis at 8 PM. He was complaining of significant pain prior to receiving IV pain medication, however is now sleeping and stable. POLST form reviewed with patient's son, DNR/DNI. Patient's son stated that he the patient would want surgical management of his femoral neck fracture if indicated by surgery team. Of note patient was previously a [facility] patient, however with recent placement at [facility], patient's family would like to transition to [facility] for hospitalist team. Discharge Exam General: NAD, sitting up In the chair, appears much better today and family reports at baseline Resp: normal respiratory effort, lungs diminished in the bases CV: RRR, no murmur, Abd: normal bowel sounds, soft, nontender Extremities: left hip dressing intact AxO x 3 Discharge Plan Discharge Items Patient Disposition: Transfer [facility] Reason For Visit: LEFT FEMORAL NECK FRACTURE, FALL Discharge Diagnosis: Left hip fracture Activity: As commented below Activity Comment: continue with therapy to get stronger Non-emergency contact: Primary Care Provider Call non-emergency contact if: you have any medication questions, your pain is not controlled and your pain is unusual for you Follow-up/Referrals: Diomedes Spears III, MD [Primary Care Provider] - Amandeep Villa PA-C [Physician Last Turner] - 01/02/25 11:00 am Diet: Heart Healthy Addtl Attending Provider Instructions: Mr. French, You were hospitalized after having a fall resulting in an hip fracture. This was repaired in the OR by Dr. Farias on 12/18. You had an eventful hospital stay with a poor reaction to anesthesia and pain medication and a possible aspiration event. Thankfully, with time this has resolved and have returned back to your baseline mentation. Pain has been controlled on scheduled tylenol/gabapentin. Did have one episode of breakthrough pain overnight relieved by Toradol. Did not respond well to narcotics (requiring 12L O2). If pain is not controlled with tylenol - consider adjuncts (ice, etc). Last resort sparse dosing of ibuprofen given Eliquis use. Would avoid opioids. Medication changes: - vitamin D supplement - to help with bone health and prevent future factures - seroquel - started to help with sleep/wake cycles. - Augmentin - two more doses to complete pneumonia treatment - Carvedilol (blood pressure medicine) - this is a medication that is supposed to be taken twice a day, for some reason yours was only prescibed once a day. The dosing has been altered to reflex twice a day dosing - Nystatin cream twice a day as needed for rash/back itching Instructions from the orthopedic team below. Take care! Simontl Ribbon Hand Provider Instructions: Orthopedic discharge instructions Weight bearing as tolerated with walker at all times Leave Silverlon dressing in place for 2 weeks. Will change dressing at 2 week follow up appointment. Can shower and get left hip wet in shower as long as Silverlon dressing is intact. No submerging wound in water. Posterior hip precautions x 12 weeks Abduction pillow between legs when in bed/sleeping x 8 weeks HIWOT stockings x 2 weeks Ice to affected area for pain/swelling Follow up in our office in 2 weeks for appointment. [phone] Pending Studies at Discharge: No Stand-Alone Forms: My [facility] Skilled Items Patient informed of condition?: Yes DNR: Yes Discharge Level of Care: Skilled Communicable Disease: No Discharge Prognosis: Stable Lines: None Urinary Catheter: No Medications and DC Order Prescriptions: New quetiapine 25 mg Tablet 25 mg PO DAILY@1900 Qty: 30 0RF melatonin 3 mg Tablet 3 mg PO HS Qty: 30 0RF acetaminophen [Tylenol Extra Strength] 500 mg Tablet 1,000 mg PO TID 5 Days Qty: 30 0RF carvedilol 3.125 mg Tablet 3.125 mg PO BIDM Qty: 60 0RF nystatin 100,000 unit/gram Cream 1 applic EXT TID PRN (Reason: rash) Qty: 15 0RF amoxicillin-pot clavulanate 875-125 mg Tablet 1 tab PO BIDM Qty: 2 0RF cholecalciferol (vitamin D3) 25 mcg (1,000 unit) Capsule 25 mcg PO QAM Qty: 30 0RF Continued gabapentin 100 mg Capsule 100 mg PO AMPM albuterol sulfate 90 mcg/actuation HFA aerosol inhaler 2 puff INHALATION Q6 PRN (Reason: Shortness Of Breath Or Wheezing) citalopram 20 mg tablet 20 mg PO QAM aspirin 81 mg Tablet,Delayed Release (Dr/Ec) 81 mg PO QPM Hold Instructions: Resume on 12/05/24. benzonatate 100 mg capsule 100 mg PO Q8H fluoride (sodium) [PreviDent 5000 Plus] 1.1 % Cream 1 applic DENTAL BID Vitron-C 65 mg iron- 125 mg Tablet,Delayed Release (Dr/Ec) 1 tab PO DAILY pantoprazole 40 mg tablet,delayed release (DR/EC) 40 mg PO DAILY meclizine 12.5 mg tablet 12.5 mg PO BID PRN (Reason: Dizziness) Eliquis 5 mg tablet 5 mg PO [facility] buspirone 5 mg tablet 5 mg PO TID Held acetaminophen [Tylenol] 325 mg Tablet 650 mg PO Q6H MDD 3 GRAMS/24 HOURS PRN (Reason: PAIN/FEVER) Hold Instructions: Provider's Order Discontinued carvedilol 6.25 mg Tablet 6.25 mg PO QAM hydrocodone-acetaminophen 5-325 mg Tablet 1 tab PO Q6H PRN (Reason: Pain (Scale Score 5-10)) meclizine 12.5 mg tablet 12.5 mg PO BID17 Discharge Orders: Discharge Order (Routine); Ordered 12/22/24 Ordered By: Marysol Todd Admission Data Admit Date/Time: 12/17/24 01:32 Attending Provider: Alberto Gravesit Provider: Gely Stern Primary Care Provider: Diomedes Spears III Other Providers: [facility]; Eduardo Farias; Gely Stern Other Interventions: Discharge Summary Assessment (RN) Last Done: 12/22/24 12:06 Hospital Stay Data Procedures Performed Operation Date: 12/18/24 07:30 Actual Procedures p Left Bipolar Hip Prosthesis Cemented(Left) - Eduardo Farias MD Diagnostic Imagining Performed Abdomen/Pelvis CT 12/16/24 21:55 Exam(s): CT ABDOMEN + PELVIS Without Contrast EXAM: CT Abdomen and Pelvis Without Intravenous Contrast CLINICAL HISTORY: Reason for exam: fall. TECHNIQUE: Axial computed tomography images of the abdomen and pelvis without intravenous contrast. CTDI is 36 mGy and DLP is 624 mGy-cm. Automated exposure control was utilized for the study. A dose lowering technique was utilized adhering to the principles of ALARA. COMPARISON: CT chest: 11/19/2024 FINDINGS: Lung bases: Unremarkable. No mass. No consolidation. Mediastinum: There is a moderate hiatal hernia. ABDOMEN: Liver: Unremarkable. Gallbladder and bile ducts: Unremarkable. No calcified stones. No ductal dilation. Pancreas: Unremarkable. No ductal dilation. Spleen: Unremarkable. No splenomegaly. Adrenals: Unremarkable. No mass. Kidneys and ureters: There is a hyperdense right renal cyst. There are additional bilateral renal cysts. No hydronephrosis or obstructing urinary calculi. Stomach and bowel: There are numerous sigmoid colon diverticula. No active diverticular inflammatory process. No free air or abscess. No obstruction. No mucosal thickening. PELVIS: Appendix: No findings to suggest acute appendicitis. Bladder: Unremarkable. No stones. Reproductive: The prostate has been removed. ABDOMEN and PELVIS: Intraperitoneal space: See above. Bones/joints: There is advanced multilevel thoracal lumbar spondylosis. There is partial L4-5 and L5-S1 fusion. There is mild grade 1 anterolisthesis of L3-4. There are vacuum discogenic changes at L1-2 through L3-4. There is advanced T12-L1 degenerative disc disease with a marginal disc osteophyte complex. No acute fracture. No dislocation. Soft tissues: Unremarkable. Vasculature: There are scattered aortic atherosclerotic calcifications.. No abdominal aortic aneurysm. Lymph nodes: Unremarkable. No enlarged lymph nodes. IMPRESSION: 1. No acute findings. 2. Advanced thoracolumbar spondylosis with multilevel discogenic changes and L4-5 and L5-S1 fusion. No acute fracture or dislocation. Electronically signed by: Nikita Curran MD 12/17/24 00:[address] 12/16/24 21:55 Exam(s): CT C SPINE EXAM: CT Cervical Spine Without Intravenous Contrast CLINICAL HISTORY: Reason for exam: fall. TECHNIQUE: Axial computed tomography images of the cervical spine without intravenous contrast. CTDI is 36 mGy and DLP is 624 mGy-cm. Automated exposure control was utilized for the study. A dose lowering technique was utilized adhering to the principles of ALARA. COMPARISON: No relevant prior studies available. FINDINGS: Vertebrae: There is mild grade 1 anterolisthesis at C2-3 secondary to asymmetric left-sided facet arthrosis. There is generalized decreased bony mineralization. There is mild grade 1 anterolisthesis at C7/T1. No acute fracture. Discs/spinal canal/neural foramina: There is asymmetric left-sided foraminal narrowing at C2-3. There is bilateral moderate to severe C3-4, C4-5, C5-6 and C6-7 foraminal stenosis. There is mild to moderate spinal stenosis. There is severe multilevel degenerative disc disease throughout the entire cervical spine. Soft tissues: Unremarkable. IMPRESSION: 1. No acute fracture. 2. Severe multilevel degenerative disc disease throughout the cervical spine. Electronically signed by: Nikita Curran MD 12/17/24 00:[address] 12/16/24 21:55 Exam(s): CT CHEST Without Contrast EXAM: CT Chest Without Intravenous Contrast CLINICAL HISTORY: Reason for exam: fall. TECHNIQUE: Axial computed tomography images of the chest without intravenous contrast. CTDI is 36 mGy and DLP is 624 mGy-cm. Automated exposure control was utilized for the study. A dose lowering technique was utilized adhering to the principles of ALARA. COMPARISON: CTA chest: 03/12/2020 FINDINGS: Lungs: There is mild cystic emphysematous change in the upper lobes. Surgical clips are noted in the right hilum. No consolidation. No pulmonary mass or suspicious nodule. Pleural space: Unremarkable. No pneumothorax. No significant effusion. Heart: There are scattered coronary artery calcifications. There are mild aortic arch calcifications. No cardiomegaly. No significant pericardial effusion. Mediastinum: There is a moderate hiatal hernia. Bones/joints: There is a total left shoulder replacement. There is multilevel thoracic degenerative disc space narrowing. There is a partial right posterior rib resection. No acute fracture. No dislocation. Soft tissues: Unremarkable. Vasculature: See above. Lymph nodes: Unremarkable. No enlarged lymph nodes. Other findings: . IMPRESSION: 1. No acute intrathoracic abnormality. 2. Mild cystic emphysematous change in the upper lobes. 3. Moderate hiatal hernia. Electronically signed by: Nikita Curran MD 12/17/24 00:43 AM Chest X-Ray 12/16/24 21:55 Exam(s): XR CXR 1 VIEW EXAM: XR Chest, 1 View CLINICAL HISTORY: Reason for exam: fall. TECHNIQUE: Frontal view of the chest. COMPARISON: No relevant prior studies available. FINDINGS: Lungs: The lungs are otherwise clear. There is mild linear left basilar atelectasis. Pleural space: Unremarkable. No pneumothorax. Heart: There is a cardiac implant monitor over the left chest. No cardiomegaly. Mediastinum: Unremarkable. Normal mediastinal contour. Bones/joints: There is a total left shoulder replacement. No acute fracture. Upper abdomen: There is mild elevation of right hemidiaphragm. IMPRESSION: Mild linear left basilar atelectasis. Electronically signed by: Nikita Curran MD 12/17/24 00:[address] 12/16/24 21:55 Exam(s): CT HEAD Without Contrast EXAM: CT Head Without Intravenous Contrast CLINICAL HISTORY: Reason for exam: fall, eliquis. TECHNIQUE: Axial computed tomography images of the head/brain without intravenous contrast. CTDI is 36 mGy and DLP is 624 mGy-cm. Automated exposure control was utilized for the study. A dose lowering technique was utilized adhering to the principles of ALARA. COMPARISON: Prior head CT from November 19, 2024. FINDINGS: Brain: Unremarkable. No hemorrhage. Advanced nonspecific white matter changes. No edema. Vertebral basilar dolichoectasia. Ventricles: Moderate ventriculomegaly. Bones/joints: Unremarkable. No acute fracture. Soft tissues: Unremarkable. Sinuses: Unremarkable as visualized. No acute sinusitis. Mastoid air cells: Unremarkable as visualized. No mastoid effusion. IMPRESSION: No evidence of acute intracranial pathology. Electronically signed by: Tory Escalante MD 12/17/24 01:14 AM Hip/Pelvis X-Ray 12/16/24 21:55 Exam(s): XR HIP + PELVIS, 1 view EXAM: XR Left Hip With Pelvis When Performed, 2 or 3 Views CLINICAL HISTORY: Reason for exam: fall. TECHNIQUE: Two or three views of the left hip with pelvis when performed. COMPARISON: No relevant prior studies available. FINDINGS: Bones/joints: There is a left femoral neck fracture. There is lower lumbar degenerative disc disease. Soft tissues: There are surgical clips in the lower pelvis suggestive of prior prostatectomy. IMPRESSION: There is a left femoral neck fracture. Electronically signed by: Nikita Curran MD 12/17/24 00:31 AM Chest CTA 12/17/24 23:49 EXAM: CT angio chest PE protocol CLINICAL HISTORY: PE. TECHNIQUE: CT angiography of the chest was performed with and without intravenous contrast with the following protocol: axial images with, reconstructed coronal and sagittal images. Non-contrast images were initially acquired, followed by contrast-enhanced images in arterial and venous phases. 118 cc opti 320 Intravenous contrast was administered using automated injection techniques. Bolus tracking was employed to optimize arterial phase imaging. One of these 3D techniques was utilized: Maximum Intensity Pixel (MIP), 3D Reconstructed Images, Volume Rendered Images, Surface Shaded Rendering. One of the following dose reduction techniques was utilized for this exam: Automated exposure control, adjustment of the mA and/or kV according to patient size, and use of iterative reconstruction. DLP: 866.85mGy.cm. COMPARISON: CT chest 12/16/2024 21:53:47 [employer]RECTION [employer]ER HEAD. FINDINGS: Aorta and Great Vessels: Ascending Aorta: Normal in caliber, no aneurysm, dissection, or significant atherosclerosis. Aortic Arch: Normal in caliber, no aneurysm, or dissection however atherosclerotic wall calcifications are seen. Descending Aorta: Normal in caliber, no aneurysm, or dissection however atherosclerotic wall calcifications are seen. Pulmonary Arteries: The main pulmonary artery and its branches are patent. No evidence of pulmonary embolism or significant stenosis. Heart: Cardiac size is enlarged. Pericardium: No pericardial effusion or thickening. Lungs and Pleura: Patches of consolidation are seen in the posterior segment of the right upper lobe and bilateral posterior basal segments of the lower lobes. Few scattered pneumatoceles/centrilobular emphysematous changes are seen in both lungs. Bilateral basal pleural effusion. Mediastinum: No mediastinal mass or abnormal lymphadenopathy. Normal appearance of the trachea and central bronchi. Hilar Structures: Hilar structures are normal without enlargement. Few surgical clips are seen in right hilum. Chest Wall: No mass lesions or abnormalities in the chest wall. Vascular Structures: Superior Vena Cava: Patent without evidence of stenosis or thrombus. Inferior Vena Cava: Patent without evidence of stenosis or thrombus. Bones and Soft Tissues: No fractures, lytic, or blastic lesions of the visualized bony structures. Significant age-related degenerative changes are seen. Left shoulder prosthesis is seen. No loosening or break. A large intracrural defect with intrathoracic herniation of the stomach. IMPRESSION: 1. No evidence of pulmonary embolism, or aortic aneurysm, or dissection. 2. Bilateral pulmonary consolidations with basal pleural effusions concerning acute infective/inflammatory lung disease. 3. Hiatal hernia. 4. In comparison to previous CT chests conducted 12/16/2024 pulmonary consolidations are interval new findings. Electronically signed by Abe Redman 12-18-2024 01:56 AM Pelvis X-Ray 12/18/24 13:10 EXAMINATION: X-ray pelvis 1-2 view routine CLINICAL HISTORY: Postop left hip PRIORS: CT 12/17/2024, plain film 12/16/2024 TECHNIQUE: AP and lateral view hip FINDINGS: Moderate osseous demineralization is noted. A left total hip arthroplasty is present, appearing in the interval. Femoral stem is unremarkable. Alignment is near-anatomic. No periprosthetic fracture. Moderate osseous demineralization noted. Pubic symphysis not widened. Surgical clips in the lower pelvis. Overlying bowel gas stool and soft tissue obscures fine bone detail. IMPRESSION: Left total hip arthroplasty with near anatomic alignment. Electronically signed by Clara Pabon 12-18-2024 2:17 PM Chest X-Ray 12/20/24 10:50 XR chest 1V portable CLINICAL HISTORY: hypoxia, recent surgery COMPARISON STUDY: 12/16/2024 FINDINGS: Cardiac loop recorder remains. Stable left shoulder prosthesis. Stable cardiomegaly with mild pulmonary vascular congestion. Stable mild elevation of the right hemidiaphragm. Inspiration is shallow. There is stable mild stranding at the left base with partial obscuration of the left hemidiaphragm. No pneumothorax. IMPRESSION: Shallow inspiration with stable mild atelectasis versus early pneumonia left lung base. ACT 112: Negative or not required by law. Electronically signed by: J Carlos Gomez M.D. 12/20/2024 11:14 AM Pending Results Patient Have Any Pending Studies at Discharge: No Discharge Instructions Given to Patient (Per Discharging Provider) Mr. French, Edil were hospitalized after having a fall resulting in an hip fracture. This was repaired in the OR by Dr. Farias on 12/18. You had an eventful hospital stay with a poor reaction to anesthesia and pain medication and a possible aspiration event. Thankfully, with time this has resolved and have returned back to your baseline mentation. Pain has been controlled on scheduled tylenol/gabapentin. Did have one episode of breakthrough pain overnight relieved by Toradol. Did not respond well to narcotics (requiring 12L O2). If pain is not controlled with tylenol - consider adjuncts (ice, etc). Last resort sparse dosing of ibuprofen given Eliquis use. Would avoid opioids. Medication changes: - vitamin D supplement - to help with bone health and prevent future factures - seroquel - started to help with sleep/wake cycles. - Augmentin - two more doses to complete pneumonia treatment - Carvedilol (blood pressure medicine) - this is a medication that is supposed to be taken twice a day, for some reason yours was only prescibed once a day. The dosing has been altered to reflex twice a day dosing - Nystatin cream twice a day as needed for rash/back itching Instructions from the orthopedic team below. Take care! Total Time Total Time Spent Total Time Spent (In Minutes): Time spent day of discharge 45 minutes including direct patient care, medication reconciliation, documentation, review of labs and images, and coordination of care. Disucssed case with CM Coding Level of Care Code 96633 INP/OBS DISCH >30 MIN Diagnoses Fall W19.XXXA Encounter type: initial encounter Closed hip fracture S72.002A Encounter type: initial encounter Laterality: left Paroxysmal atrial fibrillation I48.0 Mixed Alzheimer's and vascular dementia G30.9; F01.50; F02.80 Acute respiratory failure with hypoxia J96.01 Postoperative anemia D64.9"
[2024-12-22 12:08] VITALS: BP 137/76; PULSE 89
== END 2024-12-22 14:32 | DRG 521 ==
LOC: ED 21:41 → SUATTDRO 12-17 01:32 → EDINP 12-17 01:32 → 2N 12-17 02:47 → 2S 12-18 14:53

== ENCOUNTER 2025-01-10 09:10 | Inpatient (IN) ==
[2025-01-10] MEDS ORDERED: MoRPHine SULFATE 4 MG/ML 1 ML CARP\\VIAL IV PRN (09:24)
--- NOTE | 2025-01-10 10:03 | Emergency Department Note ---
Impression & Plan Acute hypoxic respiratory failure, Fall, Acute hip pain ED Provider Note NAME: BUCK BATISTA AGE: 84 SEX: M : 1940 ARRIVES VIA: Ambulance INFORMANT: Patient ED PROVIDER(S): Osmin Boyle DO CHIEF COMPLAINT: Fall HPI: Patient is an 84-year-old male from [facility] who presents to the ER with a past medical history of paroxysmal A-fib, hypertension and migraines following falling on the floor. Patient does not remember anything or why he is here. He denies any head pain or neck pain. No chest pain or belly pain. He does complain of right hip pain. Denies any tingling or numbness. From [place] from [facility]. Patient had a fall last night and hit his head. He fell onto right side. Per report from [facility] he is currently mentally at his baseline with dementia. ADDITIONAL HISTORY OBTAINED: Per HPI Chronic Medical/Social Conditions Affecting Care: Per HPI PAST MEDICAL HISTORY:See Below PAST SURGICAL HISTORY:See Below FAMILY HISTORY:See Below SOCIAL HISTORY:See Below HOME MEDICATIONS:See Below ALLERGIES:See Below VITALS:See Below PHYSICAL EXAMINATION: GENERAL: alert, well appearing, well nourished, no distress, non-toxic HEAD: normal cephalic, atraumatic EYE EXAM: normal conjunctiva, PERRL and EOM's grossly intact OROPHARYNX: no exudate, no erythema, lips, buccal mucosa, and tongue normal and mucous membranes are moist NECK: supple, no nuchal rigidity, no adenopathy, non-tender CHEST: stable to compression anteriorly and posteriorly LUNGS: clear to auscultation. Normal chest wall mechanics HEART: no murmurs, S1 normal and S2 normal ABDOMEN: abdomen soft, non-tender, normo-active bowel sounds, no masses, no rebound or guarding. PELVIS: stable to compression anteriorly and posteriorly BACK: Back is symmetrical on inspection and there is no deformity, no midline tenderness, no CVA tenderness. UPPER EXTREMITIES: full active and passive range of motion of all joints without tenderness to palpation LOWER EXTREMITIES: No tenderness on palpation entire left lower extremity. Incision over the hip is clean and dry. DPs 2 out of 4 bilaterally. No tenderness on palpation of the foot and ankle tib-fib or knee. Tenderness on right hip with any movement and palpation. NEURO EXAM: Normal sensorium, cranial nerves II-XII grossly intact, normal speech, no gross weakness of arms, no gross weakness of legs. GCS: 15. MEDICAL DECISION MAKING: Patient is an 84-year-old male who presents to the ER for the above-stated complaint. IV was established and blood work was obtained. Labs show leukocytosis 11,000. Mild anemia 9.6. BMP normal LFTs bilirubin and troponin was negative. Lipase was normal. UA was clean. Viral panel was negative. CT of the head and cervical spine was negative. Chest x-ray was clean. X-ray of the right hip and pelvis showed no acute fracture. Following this as patient was still having significant pain CT of the hip was done and was negative. Patient was hypoxic recent placed on 2 L nasal cannula. This was prior to any narcotics. Patient has a significant pain with any movement of the right hip. Patient was ordered Vanco and cefepime for questionable pulmonary infiltrate. He was also ordered morphine as needed. Family was updated bedside discussed case with the hospitalist for further evaluation management treatment. Consults/Care Managements Discussions: Per [facility] Triage Nursing notes reviewed. Limited review of prior medical records performed Vital Signs: reviewed and remarkable for no significant abnormalities Differential diagnosis: Differential diagnoses include major intracranial, cervical, spinal, thoracic, abdominal, pelvic and neurologic injury. Fracture, contusion, sprain, strain, laceration, abrasions included as well. ER treatment provided: See below Diagnostics interpreted by me include EKG and cardiac monitoring as listed below: -Cardiac Monitoring: An order was placed for continuous cardiac monitoring. The monitor shows a rate of 90 with sinus rhythm. -ECG: Sinus rhythm rate of 95 Left axis No PVCs QTc 505 -Laboratory studies:Interpreted by me as stated above in MDM and shown below. Imaging studies: Xrays: As interpreted by me: X-ray of the right hip and pelvis shows no acute fracture or dislocation CTs show: CT head and cervical spine was negative per radiology Procedures:none Critical Care: I have personally spent 33 minutes of critical care time in the direct management of this patient. This includes bedside care, interpretation of diagnostic studies, and testing, discussion with consultants, patient, and family members, and other required patient management activities. This 33 minutes is in excess of all separately billable procedures. Past Med/Surg History Problem List (Updated 01/10/25 @ 14:04 by Osmin Boyle DO) Acute hip pain (Acute) Fall (Acute) Acute hypoxic respiratory failure (Acute) Postoperative anemia Acute respiratory failure with hypoxia Hard of hearing Closed hip fracture (Acute) Fall (Acute) Encounter for hospice care discussion Counseling regarding advanced directives and goals of care Palliative care by specialist Anemia Norovirus Dementia (Acute) Acute dehydration (Acute) Nausea vomiting and diarrhea (Acute) Fall (Acute) Gastroenteritis (Acute) Diarrhea Fall Paroxysmal atrial fibrillation Mixed Alzheimer's and vascular dementia Anginal equivalent Dyspnea on minimal exertion Complete left bundle branch block (Acute) Chest pain (Acute) COVID-19 (Acute) Pneumonia involving right lung (Acute) Pneumonia involving right lung Vomiting (Acute) Headache (Acute) Chest pain (Acute) Acute ischemic stroke Acute confusion (Acute) History of CVA (cerebrovascular accident) (Acute) Middle cerebral artery stenosis (Acute) Pre-diabetes Aneurysmal dilatation Weakness (Acute) History of pulmonary embolism Supratherapeutic INR (Acute) Acute cerebrovascular accident (Acute) CKD (chronic kidney disease) stage 3, GFR 30-59 ml/min (Acute) Status post reverse arthroplasty of left shoulder (Acute ~05/2020) HTN (hypertension) Migraine (Chronic) HX OF DVT prophylaxis Medical History (Updated 01/10/25 @ 14:04 by Osmin Boyle DO) On anticoagulant therapy Pulmonary embolism hospitalized 03/12/2020-03/15/2020 [facility] w/ BL PE; unk etiology; on coumadin Degenerative disc disease Osteoarthritis GERD (gastroesophageal reflux disease) Cancer LUNG AND PROSTATE CANCER, both treated surgically Asthma Using albuterol inhaler TID now since PEs. Previously wasn't using inhaler at all. Surgical History (Updated 12/22/24 @ 12:36 by Amandeep Villa PA-C) Status post-operative repair of hip fracture History of cataract surgery LEFT/RIGHT History of carpal tunnel release RT X 2 LEFT X 3 History of laminectomy LUMBAR History of prostatectomy History of esophagogastroduodenoscopy (EGD) History of colonoscopy History of herniorrhaphy RT INGUINAL History of lobectomy of lung RT MIDDLE LOBE History of tooth extraction History of tonsillectomy History of adenoidectomy Family History Father FHx: prostate cancer Grandfather (Paternal) FHx: prostate cancer Social History Smoking Status: Never smoker Tobacco Type: Cigars Second Hand Exposure: No; Do You Dip or Chew Tobacco: No; Hx Alcohol Use: Yes Alcohol type: wine Hx Substance Use: No Preferred Language: Frisian Communication Ability: Effective Vp Rheumatology Required: No Beliefs That Will Affect Care: None marital status: Current Living Situation: Group Home Current Living Situation Comment: daughter is living with him currently Feels Safe at Home: Yes Assistive Devices: Walker and Wheelchair Allergies Allergies Allergy/AdvReac Type Severity Reaction Status Date / Time oxycodone AdvReac Severe became Verified 12/17/24 00:05 apneic and bradycardic Home Meds Home Medications Medication Instructions Recorded Confirmed citalopram 20 mg tablet 20 mg PO QAM 08/31/18 12/17/24 gabapentin 100 mg capsule 100 mg PO AMPM 03/09/20 12/17/24 aspirin 81 mg tablet,delayed 81 mg PO QPM 07/04/20 12/17/24 release albuterol sulfate 90 mcg/actuation 2 puff inhalation Q6 PRN Shortness 07/07/20 12/17/24 aerosol inhaler Of Breath Or Wheezing apixaban 5 mg tablet (Eliquis) 5 mg PO AMHS 10/12/24 12/17/24 meclizine 12.5 mg tablet 12.5 mg PO BID PRN Dizziness 10/12/24 12/17/24 buspirone 5 mg tablet 5 mg PO TID 11/19/24 12/17/24 acetaminophen 325 mg tablet 650 mg PO Q6H PRN PAIN/FEVER 12/17/24 12/17/24 (Tylenol) benzonatate 100 mg capsule 100 mg PO Q8H COUGH 12/17/24 12/17/24 fluoride (sodium) 1.1 % dental 1 applic dental BID 12/17/24 12/17/24 cream (PreviDent 5000 Plus) iron,carbonyl 65 mg-vitamin C 125 1 tab PO DAILY 12/17/24 12/17/24 mg tablet,delayed release (Vitron-C) pantoprazole 40 mg tablet,delayed 40 mg PO DAILY 12/17/24 12/17/24 release Previous Rx's Medication Instructions Recorded amoxicillin 875 mg-potassium 1 tab PO BIDM #2 tabs 12/22/24 clavulanate 125 mg tablet carvedilol 3.125 mg tablet 3.125 mg PO BIDM #60 tabs 12/22/24 cholecalciferol (vitamin D3) 25 25 mcg PO QAM #30 caps 12/22/24 mcg (1,000 unit) capsule melatonin 3 mg tablet 3 mg PO HS #30 tabs 12/22/24 nystatin 100,000 unit/gram topical 1 applic EXT TID PRN rash #15 grams 12/22/24 cream quetiapine 25 mg tablet 25 mg PO DAILY@1900 #30 tabs 12/22/24 Results & Data (ED) Vital Signs Vital Signs - 24 hr 01/10/25 09:20 01/10/25 09:20 01/10/25 09:20 Temperature 36.4 C L Temperature Source Oral Pulse Rate 90 Pulse Rate [Apical] Pulse Rhythm Respiratory Rate 18 Respiratory Effort / Characteristics Non-Labored Non-Labored Respiratory Depth Normal Normal Blood Pressure 136/78 Blood Pressure [Right Arm] Blood Pressure Mean 97 Blood Pressure Mean [Right Arm] Blood Pressure Position Right Lateral Blood Pressure Position [Right Arm] Pulse Oximetry 96 Oxygen Delivery Method Room Air Room Air Oxygen Flow Rate Sepsis Recent Fever Within 48 Hours No Sepsis New/Unexplained Change in Mental Status No Sepsis Action Taken by Nursing No Action Required Oxygen Flow Rate - Titration Pulse Oximetry Post Tiitration 01/10/25 09:20 01/10/25 09:58 01/10/25 10:00 Temperature Temperature Source Pulse Rate 92 H 94 H Pulse Rate [Apical] Pulse Rhythm Respiratory Rate 20 Respiratory Effort / Characteristics Non-Labored Respiratory Depth Normal Blood Pressure 128/81 Blood Pressure [Right Arm] Blood Pressure Mean 109 Blood Pressure Mean [Right Arm] Blood Pressure Position Blood Pressure Position [Right Arm] Pulse Oximetry 99 Oxygen Delivery Method Nasal Cannula Oxygen Flow Rate 2 Sepsis Recent Fever Within 48 Hours Sepsis New/Unexplained Change in Mental Status Sepsis Action Taken by Nursing Oxygen Flow Rate - Titration Pulse Oximetry Post Tiitration 01/10/25 10:08 01/10/25 10:09 01/10/25 10:35 Temperature Temperature Source Pulse Rate 90 Pulse Rate [Apical] 92 H Pulse Rhythm Regular Respiratory Rate 20 18 Respiratory Effort / Characteristics Non-Labored Respiratory Depth Normal Blood Pressure Blood Pressure [Right Arm] 148/79 H Blood Pressure Mean Blood Pressure Mean [Right Arm] 102 Blood Pressure Position Blood Pressure Position [Right Arm] Sitting Pulse Oximetry 96 88 L 98 Oxygen Delivery Method Nasal Cannula Room Air Nasal Cannula Oxygen Flow Rate 2 2 Sepsis Recent Fever Within 48 Hours Sepsis New/Unexplained Change in Mental Status Sepsis Action Taken by Nursing Oxygen Flow Rate - Titration 2 Pulse Oximetry Post Tiitration 99 01/10/25 12:00 01/10/25 12:38 01/10/25 13:14 Temperature Temperature Source Pulse Rate Pulse Rate [Apical] 90 89 90 Pulse Rhythm Respiratory Rate 18 20 20 Respiratory Effort / Characteristics Non-Labored Non-Labored Respiratory Depth Normal Normal Blood Pressure Blood Pressure [Right Arm] 127/80 127/73 124/76 Blood Pressure Mean Blood Pressure Mean [Right Arm] 95 91 92 Blood Pressure Position Blood Pressure Position [Right Arm] Pulse Oximetry 100 98 100 Oxygen Delivery Method Nasal Cannula Nasal Cannula Nasal Cannula Oxygen Flow Rate 2 2 2 Sepsis Recent Fever Within 48 Hours Sepsis New/Unexplained Change in Mental Status Sepsis Action Taken by Nursing Oxygen Flow Rate - Titration Pulse Oximetry Post Tiitration 01/10/25 13:58 01/10/25 14:00 01/10/25 14:00 Temperature Temperature Source Pulse Rate 90 Pulse Rate [Apical] 92 H 90 Pulse Rhythm Respiratory Rate 20 18 Respiratory Effort / Characteristics Non-Labored Non-Labored Respiratory Depth Normal Normal Blood Pressure Blood Pressure [Right Arm] 151/94 H 151/94 H Blood Pressure Mean Blood Pressure Mean [Right Arm] 113 113 Blood Pressure Position Blood Pressure Position [Right Arm] Pulse Oximetry 96 97 Oxygen Delivery Method Nasal Cannula Nasal Cannula Oxygen Flow Rate 2 2 Sepsis Recent Fever Within 48 Hours Sepsis New/Unexplained Change in Mental Status Sepsis Action Taken by Nursing Oxygen Flow Rate - Titration Pulse Oximetry Post Tiitration Laboratory Data 01/10/25 10:25 01/10/25 10:25 Lab Results 01/10/25 01/10/25 Range/Units 10:25 Unknown WBC 11.36 H (4.8-10.8) K/ul RBC 3.34 L (4.70-6.10) M/uL Hgb 9.1 L (14.0-18.0) g/dl Hct 28.4 L (42.0-52.0) % MCV 85.0 (80.0-100.0) fL MCH 27.2 (25.0-34.0) pg MCHC 32.0 (32.0-36.0) g/dL RDW Std Deviation 57.8 H (36.4-46.3) fL RDW Coeff of Marely 18.6 H (11.5-14.5) % Plt Count 375 (130-400) K/uL MPV 9.1 L (9.4-12.4) fL Immature Gran % (Auto) 0.7 % Neut % (Auto) 78.0 % Lymph % (Auto) 12.3 % [place] % (Auto) 7.0 % Eos % (Auto) 1.7 % Baso % (Auto) 0.3 % Neut # (Auto) 8.87 H (1.40-6.50) K/uL Lymph # (Auto) 1.40 (1.20-3.40) K/uL [place] # (Auto) 0.79 H (0.11-0.59) K/uL Eos # (Auto) 0.19 (0.00-0.50) K/uL Baso # (Auto) 0.03 (0.00-0.20) K/uL Immature Gran # (Auto) 0.08 (0.01-0.20) K/uL Sodium 139 (136-145) mmol/L Potassium 4.1 (3.5-5.1) mmol/L Chloride 106 (98-107) mmol/L Carbon Dioxide 28 (21-32) mmol/L Anion Gap 5 (3-11) BUN 18 (6-23) mg/dl Creatinine 1.05 (0.6-1.4) mg/dl Est Cr Clr Drug Dosing 49.8 ml/min eGFR 69.13 BUN/Creatinine Ratio 17.1 (10-20) Glucose 100 H (70-99(Fasting)) mg/dl Calcium 8.4 L (8.6-10.3) mg/dl Total Bilirubin 0.6 (0.2-1.0) mg/dl AST 17 (13-39) U/L ALT 6 L (7-52) U/L Alkaline Phosphatase 86 (34-104) U/L Troponin I High Sens 10.2 (0-20) pg/ml Total Protein 6.0 (6.0-8.3) gm/dl Albumin 3.3 L (3.4-5.0) gm/dl Globulin 2.7 (2.5-4.0) gm/dl Albumin/Globulin Ratio 1.2 (0.9-2) Lipase 15 (11-82) U/L Urine Color Yellow Urine Appearance Clear (Clear) Urine pH 5.5 (4.5-7.5) Ur Specific [place] >= 1.030 (1.000-1.030) Urine Protein Negative (Negative) Urine Glucose (UA) Negative (Negative) Urine Ketones Negative (Negative) Urine Blood Negative (Negative) Urine Nitrite Negative (Negative) Urine Bilirubin Negative (Negative) Urine Urobilinogen Negative (Negative) Ur Leukocyte Esterase Negative (Negative) Adenovirus (PCR) Not Detected (NotDetected) B. pertussis DNA (PCR) Not Detected (NotDetected) B.parapertussis DNA PCR Not Detected (NotDetected) C. pneumoniae DNA (PCR) Not Detected (NotDetected) Coronavirus OC43 (PCR) Not Detected (NotDetected) Coronavirus HKU1 (PCR) Not Detected (NotDetected) Coronavirus 229E (PCR) Not Detected (NotDetected) SARS-CoV-2 (PCR) Not Detected (NotDetected) Coronavirus NL63 (PCR) Not Detected (NotDetected) Human Metapneumovir PCR Not Detected (NotDetected) Influenza Type A (PCR) Not Detected (NotDetected) Influenza Type B (PCR) Not Detected (NotDetected) M. pneumoniae (PCR) Not Detected (NotDetected) Parainfluenza 1 (PCR) Not Detected (NotDetected) Parainfluenza 2 (PCR) Not Detected (NotDetected) Parainfluenza 3 (PCR) Not Detected (NotDetected) Parainfluenza 4 (PCR) Not Detected (NotDetected) RSV (PCR) Not Detected (NotDetected) Entero/Rhino (PCR) Not Detected (NotDetected) Administered Medications Vancomycin HCl 1,500 mg/ (Sodium Chloride) 530 mls @ 200 mls/hr IV NOW ONE Stop: 01/10/25 15:17 Last Admin: 01/10/25 13:06 Dose: 200 mls/hr Documented By: LISA Morphine Sulfate (Morphine Sulfate 2 Mg/Ml Carp) 2 mg IV Q1H PRN PRN Reason: Moderate Pain (Rating 3,4,5,6) Stop: 01/24/25 09:23 Last Admin: 01/10/25 13:19 Dose: 2 mg Documented By: LISA Discontinued Medications Cefepime HCl (Maxipime 2000mg) 2,000 mg in 20 mls @ 5 mls/min IV NOW STA; Protocol Stop: 01/10/25 12:42 Last Admin: 01/10/25 13:06 Dose: 5 mls/min Documented By: LISA Imaging Data Radiologist's Impression: Cervical Spine CT 01/10/25 09:23 CT cervical spine wo con CT DOSE: 1071.88 mGy.cm CLINICAL HISTORY: fall. COMPARISON: 12/16/2024 TECHNIQUE: Multiple axial CT images of the cervical spine were obtained without contrast. A dose lowering technique was utilized adhering to the principles of ALARA. FINDINGS: There is severe diffuse cervical degenerative disc disease. There is stable grade 1 anterolisthesis of C2 on 3, C3 on 4 and C7 on T1. Stable minimal retrolisthesis of C4 on C5 and C5 on C6. No fracture seen. IMPRESSION: No cervical spine fracture seen. ACT 112: Negative or not required by law. The above report was generated using voice recognition software. It may contain grammatical, syntax or spelling errors. Electronically signed by: J Carlos Gomez M.D. 01/10/2025 11:05 AM Chest X-Ray 01/10/25 09:23 XR chest 1V portable CLINICAL HISTORY: Chest pain, nonspecific COMPARISON STUDY: 12/20/2024 FINDINGS: Stable cardiac tube or coronary and left shoulder prosthesis. Stable cardiomegaly with mild pulmonary vascular congestion. Inspiration is shallow. There is interval stranding opacity at the left base. Otherwise the lungs remain aerated. IMPRESSION: 1. Mild CHF. 2. Atelectasis versus early pneumonia left lung base. ACT 112: Negative or not required by law. Electronically signed by: J Carlos Gomez M.D. 01/10/2025 11:[address] 01/10/25 09:23 CT head/brain wo con CLINICAL HISTORY: 84 years-old Male with fall. Acute head trauma status post fall TECHNIQUE: Multiple axial CT images of the head were obtained without contrast. A dose lowering technique was utilized adhering to the principles of ALARA. COMPARISON: 12/16/2024 FINDINGS: No acute intracranial hemorrhage, midline shift, intracranial mass, hydrocephalus, territorial ischemia or abnormal extra-axial collection. Involutional changes with advanced chronic microvascular ischemic disease redemonstrated. The calvarium is intact. The paranasal sinuses, mastoid air cells, and middle ear cavities are clear. IMPRESSION: No acute intracranial abnormality or calvarial fracture. ACT 112: Negative or not required by law. The above report was generated using voice recognition software. It may contain grammatical, syntax or spelling errors. Electronically signed by: Anibal Hi M.D. 01/10/2025 11:08 AM Hip/Pelvis X-Ray 01/10/25 09:23 XR hip RT 2V w pelvis CLINICAL HISTORY: r hip pain COMPARISON: 12/18/2024 FINDINGS: Left hip prosthesis shows no hardware complication. No fracture or dislocation seen. IMPRESSION: No fracture seen. ACT 112: Negative or not required by law. Electronically signed by: J Carlos Gomez M.D. 01/10/2025 11:[address] 01/10/25 11:28 CT hip RT wo con CLINICAL HISTORY: fall r hip pain COMPARISON STUDY: X-ray earlier today FINDINGS: There is osteopenia. There are calcifications adjacent to the greater trochanter and right ischium consistent with calcific tendinitis or sequela of old injury. There are mild degenerative changes at the right hip. No acute fracture or dislocation seen. There are degenerative changes at the pubic symphysis with small bone cyst at the right pubis. There is an intramuscular hematoma lateral to the right hip measuring 7 cm. IMPRESSION: 1. No acute fracture seen at the right hip. If pain persists, consider follow-up MRI which is more sensitive than CT for occult fractures in the setting of osteopenia. 2. Intramuscular hematoma lateral to the right hip. ACT 112: Negative or not required by law. Electronically signed by: J Carlos Gomez M.D. 01/10/2025 12:55 PM Discharge Plan Visit Data Chief Complaint: Fall Stated Complaint: FALL ED Provider: Osmin Boyle Discharge Problem: Acute hypoxic respiratory failure, Fall, Acute hip pain Forms Stand Alone Forms: My [employer] Prescriptions Prescriptions: No Action gabapentin 100 mg Capsule 100 mg PO AMPM albuterol sulfate 90 mcg/actuation HFA aerosol inhaler 2 puff INHALATION Q6 PRN (Reason: Shortness Of Breath Or Wheezing) citalopram 20 mg tablet 20 mg PO QAM aspirin 81 mg Tablet,Delayed Release (Dr/Ec) 81 mg PO QPM Hold Instructions: Resume on 12/05/24. acetaminophen [Tylenol] 325 mg Tablet 650 mg PO Q6H MDD 3 GRAMS/24 HOURS PRN (Reason: PAIN/FEVER) Hold Instructions: Provider's Order benzonatate 100 mg capsule 100 mg PO Q8H fluoride (sodium) [PreviDent 5000 Plus] 1.1 % Cream 1 applic DENTAL BID Vitron-C 65 mg iron- 125 mg Tablet,Delayed Release (Dr/Ec) 1 tab PO DAILY pantoprazole 40 mg tablet,delayed release (DR/EC) 40 mg PO DAILY quetiapine 25 mg Tablet 25 mg PO DAILY@1900 Qty: 30 0RF melatonin 3 mg Tablet 3 mg PO HS Qty: 30 0RF carvedilol 3.125 mg Tablet 3.125 mg PO BIDM Qty: 60 0RF nystatin 100,000 unit/gram Cream 1 applic EXT TID PRN (Reason: rash) Qty: 15 0RF amoxicillin-pot clavulanate 875-125 mg Tablet 1 tab PO BIDM Qty: 2 0RF cholecalciferol (vitamin D3) 25 mcg (1,000 unit) Capsule 25 mcg PO QAM Qty: 30 0RF meclizine 12.5 mg tablet 12.5 mg PO BID PRN (Reason: Dizziness) Eliquis 5 mg tablet 5 mg PO AMHS buspirone 5 mg tablet 5 mg PO TID Referrals Referrals: [facility] [Primary Care Provider] - Discharge Problem: Fall Qualifiers: Encounter type: initial encounter Qualified Code(s): W19.XXXA - Unspecified fall, initial encounter Acute hip pain Qualifiers: Laterality: right Qualified Code(s): M25.551 - Pain in right hip
[2025-01-10 10:44] LABS: Basophils # (auto) 0.03 K/uL (0.00-0.20); Basophils % (auto) 0.3 %; Eosinophils # (auto) 0.19 K/uL (0.00-0.50); Eosinophils % (auto) 1.7 %; Hematocrit (blood only) 28.4 % (42.0-52.0); Hemoglobin 9.1 g/dl (14.0-18.0); Immature Granulocytes # (auto) 0.08 K/uL (0.01-0.20); Immature Granulocytes % (auto) 0.7 %; Lymphocytes % (auto) 12.3 %; Mean Corpuscular Hemoglobin 27.2 pg (25.0-34.0); Mean Platelet Volume 9.1 fL (9.4-12.4); Monocytes # (auto) 0.79 K/uL (0.11-0.59); Neutrophils # (auto) 8.87 K/uL (1.40-6.50); Platelet Count 375 K/uL (130-400); RDW Coefficient of Variation 18.6 % (11.5-14.5); RDW Standard Deviation 57.8 fL (36.4-46.3); Red Blood Count 3.34 M/uL (4.70-6.10); White Blood Count 11.36 K/ul (4.8-10.8)
[2025-01-10 11:03] LABS: Albumin Level 3.3 gm/dl (3.4-5.0); Bilirubin,Total 0.6 mg/dl (0.2-1.0); Calcium 8.4 mg/dl (8.6-10.3); Potassium 4.1 mmol/L (3.5-5.1)
--- NOTE | 2025-01-10 11:07 | CT Scan Report ---
CT cervical spine wo con CT DOSE: 1071.88 mGy.cm CLINICAL HISTORY: fall. COMPARISON: 12/16/2024 TECHNIQUE: Multiple axial CT images of the cervical spine were obtained without contrast. A dose low ering technique was utilized adhering to the principles of ALARA. FINDINGS: There is severe diffuse cervical degenerative disc disease. There is stable grade 1 anterol isthesis of C2 on 3, C3 on 4 and C7 on T1. Stable minimal retrolisthesis of C4 on C5 and C5 on C6. No fracture seen. IMPRESSION: No cervical spine fracture seen. ACT 112: Negative or not required by law. The above report was generated using voice recognition software. It may contain grammatical, syntax o r spelling errors. Electronically signed by: J Carlos Gomez M.D. 01/10/2025 11:05 AM
[2025-01-10 11:09] LABS: Albumin Globulin Ratio 1.2 (0.9-2); BUN Creatinine Ratio 17.1 (10-20); Creatinine Clr Calc Pharmacy 49.8 ml/min; Globulin 2.7 gm/dl (2.5-4.0)
--- NOTE | 2025-01-10 11:10 | CT Scan Report ---
CT head/brain wo con CLINICAL HISTORY: 84 years-old Male with fall. Acute head trauma status post fall TECHNIQUE: Multiple axial CT images of the head were obtained without contrast. A dose lowering tech nique was utilized adhering to the principles of ALARA. COMPARISON: 12/16/2024 FINDINGS: No acute intracranial hemorrhage, midline shift, intracranial mass, hydrocephalus, territorial ischem ia or abnormal extra-axial collection. Involutional changes with advanced chronic microvascular ische wendy disease redemonstrated. The calvarium is intact. The paranasal sinuses, mastoid air cells, and middle ear cavities are clear . IMPRESSION: No acute intracranial abnormality or calvarial fracture. ACT 112: Negative or not required by law. The above report was generated using voice recognition software. It may contain grammatical, syntax o r spelling errors. Electronically signed by: Anibal Hi M.D. 01/10/2025 11:08 AM
[2025-01-10 11:13] LABS: Troponin I High Sensitivity 10.2 pg/ml (0-20)
--- NOTE | 2025-01-10 11:19 | XRay Report ---
XR chest 1V portable CLINICAL HISTORY: Chest pain, nonspecific COMPARISON STUDY: 12/20/2024 FINDINGS: Stable cardiac tube or coronary and left shoulder prosthesis. Stable cardiomegaly with mild pulmonary vascular congestion. Inspiration is shallow. There is interval stranding opacity at the le ft base. Otherwise the lungs remain aerated. IMPRESSION: 1. Mild CHF. 2. Atelectasis versus early pneumonia left lung base. ACT 112: Negative or not required by law. Electronically signed by: J Carlos Gomez M.D. 01/10/2025 11:18 AM
--- NOTE | 2025-01-10 11:20 | XRay Report ---
XR hip RT 2V w pelvis CLINICAL HISTORY: r hip pain COMPARISON: 12/18/2024 FINDINGS: Left hip prosthesis shows no hardware complication. No fracture or dislocation seen. IMPRESSION: No fracture seen. ACT 112: Negative or not required by law. Electronically signed by: J Carlos Gomez M.D. 01/10/2025 11:19 AM
--- NOTE | 2025-01-10 11:50 | Electrocardiogram Report ---
Test Reason : Blood Pressure : */* mmHG Vent. Rate : 95 BPM Atrial Rate : 95 BPM P-R Int : 158 ms QRS Dur : 114 ms QT Int : 402 ms P-R-T Axes : 50 -58 31 degrees QTcB Int : 505 ms Sinus rhythm with Premature atrial complexes Left axis deviation Inferior infarct , age undetermined Anterolateral infarct (cited on or before 19-Nov-2024) Abnormal ECG When compared with ECG of 16-Dec-2024 21:50, Premature atrial complexes are now Present Inferior infarct is now Present Nonspecific T wave abnormality no longer evident in Lateral leads Confirmed by Pierre Martell ([id number]) on 01/10/2025 11:49:48 AM Referred By: [facility] Confirmed By: Pierre Martell
[2025-01-10] MEDS ORDERED: VANCOMYCIN CONSULT ACTIVE PRN (12:39)
[2025-01-10 12:49] LABS: Appearance Urine Clear (Clear); Bilirubin Urine Negative (Negative); Blood Urine Negative (Negative); Color Urine Yellow; Glucose Urine UA Negative (Negative); Ketones Urine Negative (Negative); Leukocyte Esterase Urine Negative (Negative); Nitrite Urine Negative (Negative); Protein Urine Negative (Negative); Specific Gravity Urine >= 1.030 (1.000-1.030); Urobilinogen Urine Negative (Negative); pH Urine 5.5 (4.5-7.5)
--- NOTE | 2025-01-10 12:56 | CT Scan Report ---
CT hip RT wo con CLINICAL HISTORY: fall r hip pain COMPARISON STUDY: X-ray earlier today FINDINGS: There is osteopenia. There are calcifications adjacent to the greater trochanter and right ischium consistent with calcific tendinitis or sequela of old injury. There are mild degenerative mary alice nges at the right hip. No acute fracture or dislocation seen. There are degenerative changes at the p ubic symphysis with small bone cyst at the right pubis. There is an intramuscular hematoma lateral to the right hip measuring 7 cm. IMPRESSION: 1. No acute fracture seen at the right hip. If pain persists, consider follow-up MRI which is more se nsitive than CT for occult fractures in the setting of osteopenia. 2. Intramuscular hematoma lateral to the right hip. ACT 112: Negative or not required by law. Electronically signed by: J Carlos Gomez M.D. 01/10/2025 12:55 PM
[2025-01-10] MEDS: CEFEPIME 2000MG 2,000 MG/20 ML SYR IV STA (13:06)
[2025-01-10] MEDS: VANCOMYCIN HCL 1,500 MG in SODIUM CHLORIDE 0.9% 500 ML IV ONE (13:06)
[2025-01-10] MEDS: MoRPHine SULFATE 2 MG/ML CARP IV PRN (13:19)
[2025-01-10 13:30] LABS: Adenovirus PCR Not Detected (NotDetected); Bordetella parapertussis PCR Not Detected (NotDetected); Bordetella pertussis PCR Not Detected (NotDetected); Chlamydia pneumoniae PCR Not Detected (NotDetected); Coronavirus 229E PCR Not Detected (NotDetected); Coronavirus CoV-2 (COVID19)PCR Not Detected (NotDetected); Coronavirus HKU1 PCR Not Detected (NotDetected); Coronavirus NL63 PCR Not Detected (NotDetected); Coronavirus OC43PCR Not Detected (NotDetected); Human Metapneumovirus PCR Not Detected (NotDetected); Influenza A PCR Not Detected (NotDetected); Influenza B PCR Not Detected (NotDetected); Mycoplasma pneumoniae PCR Not Detected (NotDetected); Parainfluenza Virus 1 PCR Not Detected (NotDetected); Parainfluenza Virus 2 PCR Not Detected (NotDetected); Parainfluenza Virus 3 PCR Not Detected (NotDetected); Parainfluenza Virus 4 PCR Not Detected (NotDetected); Respiratory Syncytial VirusPCR Not Detected (NotDetected); Rhinovirus/Enterovirus PCR Not Detected (NotDetected)
--- OUTSIDE RECORDS SUMMARY | 2025-01-10 13:44 | External Medical Summary | Continuity of Care Document ---
Author Name Unknown Organization [id number] Address [address] [place] [phone] Care Team Providers Care Wedding Day Coordinator Name Role Phone ToryAlxeDiomedes A Primary Care Physician [phone] Encounter [facility] [id number] Date(s): 01/02/25 - 01/02/25 [facility] [address] [place] [id number] Encounter Diagnosis S/P hip hemiarthroplasty(Discharge Diagnosis) - 01/02/25 Discharge Disposition: Home or Self Care Attending Physician: ERICKSON Villa Cory D Encounter Type: Clinic Allergies, Adverse Reactions, Alerts No Known Allergies Assessment and Plan Extracted from: Title:Clinical Document Author:ERICKSON Villa C ory D Date:01/02/25 OUTPATIENT NOTE Name: LESTERBUCK Patient Number:1 [id number] : 1940 Date of Service: 01/02/2025 Chief complaint: Follow-up left hip hemiarthroplasty surgical visit HPI: This 84-year-old male presents today for follow-up on his left hip. He is 15 days status post left hip hemiarthroplasty on 12/17/2024. He complains of soreness on the left side. He continues to use his walker. Patient denies any nausea, vomiting, abdominal pain, neck pain, or headache. No chest pain or shortness of breath. He denies any numbness or tingling in the left leg. He has been keeping the wounds clean and dry and is attending home physical therapy. His daughter accompanies him today. She states he is having difficulty remembering she had an injection to use his walker and to ask for assistance. His bed has been moved to the floor because he would not stay in bed and was frequently getting out without assistance. No other complaints. Physical exam: Evaluation of the left hip reveals no obvious deformity. Pleasantly confused and sitting in his wheelchair. Skin: Post surgical Silverlon dressing is in place. Upon removal, the surgical incision is closed and sealed. Zipline is in place. Wound edges are well approximated. No erythema or warmth. No active drainage. Expected post operative ecchymosis and minimal edema. No pocketing. He still has a mildly red rash present on his low back. It continues to judie. Musculoskeletal: Left hip evaluation shows supple motion. No pain with passive hip flexion and internal/external rotation. Intact quad set. Patient has full active motion of the ankle and toes. There is mild discomfort with palpation of the gluteus. No significant discomfort with palpation around the ankle or foot. He is able to stand and use his walker with minimal assistance. Neurologic: Gross sensation is intact across the left leg by soft touch. Peripheral pulses are 2+. Impression: Left hip 15 days status post hemiarthroplasty Plan: The patient was educated regarding today's findings. Conservative care measures were discussed. Zipline was removed. Benzoin and Steri-Strips were applied. These will fall off on their own in the next 7 to 10 days. He may get the wound wet in the shower starting tomorrow. Avoid scrubbing. Avoid soaking. No swimming pools for another 10 to 14 days. Continue PT. Continue the walker. Transition to a cane as pain and balance dictate. Follow-up with Dr. Farias in 4 to 6 weeks for reassessment. Please obtain x-rays of the pelvis and left hip at that visit. Continue ice application and elevation to reduce pain/swelling. Continue with his aspirin. I recommend he start Zyrtec or Claritin in addition to Tagamet to decrease the rash. Given his dementia, hip dislocation precautions will need to be reviewed frequently. Call with any other concerns. This dictation has been completed using Pixta text voice recognition software. Grammatical errors, omissions, insertions, and misspellings may be present due to the limitations of the software. Immunizations Given and Recorded Vaccine Date Status Refusal Reason influenza virus vaccine, inactivated 06/19/14 Give n influenza virus vaccine, inactivated 07/29/13 Ehsan rded tetanus/diphtheria/pertuss, acel (Tdap) 05/16/13 R ecorded pneumococcal 7-valent vaccine 08/28/07 Recorded zoster vaccine live 06/28/07 Recorded Medications acetaminophen-oxyCODONE 325 mg-10 mg oral tablet Start: 05/10/14 7:13:00 PM EDT, 1 tab, PO, q6h, Disp# 30 tab, Refills: 0, PRN: as needed for pain Start Date: 05/10/14 Status: Ordered Quantity: 30.0 Unit: tab Repeat number: 1 apixaban 5 mg oral tablet Start: 01/02/25 11:35:00 AM EDT, 1 tab, PO, bid Start Date: 01/02/25 Status: Ordered Repeat number: 1 benzonatate Start: 01/02/25 11:36:00 AM EDT Start Date: 01/02/25 Status: Ordered Repeat number: 1 busPIRone Start: 01/02/25 11:36:00 AM EDT, 5 mg = Start Date: 01/02/25 Status: Ordered Repeat number: 1 carvedilol 3.125 mg oral tablet Start: 04/25/14 11:14:00 AM EDT, 1 tab, PO, bid Start Date: 04/25/14 Status: Ordered Repeat number: 1 cholecalciferol Start: 01/02/25 11:37:00 AM EDT, 25 mcg = Start Date: 01/02/25 Status: Ordered Repeat number: 1 citalopram 20 mg oral tablet Start: 04/25/14 11:07:00 AM EDT, 1 tab, PO, bid Start Date: 04/25/14 Status: Ordered Repeat number: 1 Ecotrin Adult Low Strength 81 mg oral delayed release tablet Start: 04/25/14 11:16:00 AM EDT, 1 tab, PO, Daily, Start Date: 04/25/14 Status: Ordered Repeat number: 1 fentaNYL Start: 01/02/25 11:34:00 AM EDT, Refills: 0 Start Date: 01/02/25 Status: Ordered Repeat number: 1 gabapentin Start: 01/02/25 11:37:00 AM EDT, 100 mg =, PO Start Date: 01/02/25 Status: Ordered Repeat number: 1 meclizine Start: 01/02/25 11:38:00 AM EDT Start Date: 01/02/25 Status: Ordered Repeat number: 1 melatonin Start: 01/02/25 11:38:00 AM EDT Start Date: 01/02/25 Status: Ordered Repeat number: 1 pantoprazole 40 mg oral delayed release tablet Start: 04/25/14 11:14:00 AM EDT, 1 tab, PO, bid Start Date: 04/25/14 Status: Ordered Repeat number: 1 QUEtiapine Start: 01/02/25 11:39:00 AM EDT, 25 mg = Start Date: 01/02/25 Status: Ordered Repeat number: 1 traMADol Start: 01/02/25 11:39:00 AM EDT, 50 mg = Start Date: 01/02/25 Status: Ordered Repeat number: 1 Vitamin C 1000 mg oral tablet Start: 08/21/14 8:41:00 AM EST, 1 tab, PO, Daily Start Date: 08/21/14 Status: Ordered Repeat number: 1 Mental Status 01/02/25 Barriers to Learning one year None evide nt Mandatory Health Literacy Documentation Yes Health Literacy Communication Barriers N ever Primary Language Congolese Problem List Condition Confirmation Course Effective Dates Status Health St atus Informant Chronic hand pain Confirmed Active Depression Confirmed Active History of migraine headaches Confirmed Active Hypertension Confirmed Active Cancer of lung 1 Confirmed Active Prostate cancer 2 Confirmed Active Tobacco user Confirmed Active Varicocele Confirmed Active 69704: s/p right lobectomy 87571: s/p radical prostatectomy. Diagnosis Diagnosis Type Effective Dates Health Status Clinical Service Informant S/P hip hemiarthroplasty Discharge Diagnosis 01/02/25 Procedures Procedure Date Related Diagnosis Body Site Status CT scan of head 1 06/24/14 Complet ed Imaging 2 06/24/14 Completed Cardiac catheterization 02/08/13 C ompleted Trigger finger 05/29/11 Completed Colonoscopy 04/28/10 Completed Duplex ultrasound 3 10/29/09 Compl eted Ruptured tendon 4 10/29/09 Complet ed Stress test ECG - treadmill 10/29/09 Completed Procedure on knee 5 06/28/07 Compl eted Prostatectomy 6 11/27/03 Completed Procedure on lung 7 03/04/99 Compl eted Varicocele 09/28/97 Completed Appendectomy 09/28/71 Completed Pilonidal cyst--surgery 09/28/67 C ompleted Carpal tunnel release 8 C ompleted Procedure on back 9 Compl eted 1negative 2left forearm--negative for fracture. 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 8right hand 09/2011 9on T12-L1: May 1998 on L3-L5: Oct 1982 Social History Social History Type Response Tobacco 1 Smoking Status Never smoked cigaret daniela Sex Male Sex Representation Male (finding) 1smoked for severla decade but decreased to occasional cigar after lunf cancer Dx in 1997 Outpatient Note * ERICKSON Villa, Amandeep Hayes: PERFORM Event Display: .Outpt Note Authored Date: [id number] OUTPATIENT NOTE Name: BUCK BATISTA Patient Number:1 [id number] : 1940 Date of Service: 01/02/2025 Chief complaint: Follow-up left hip hemiarthroplasty surgical visit HPI: This 84-year-old male presents today for follow-up on his left hip. He is 15 days status post left hip hemiarthroplasty on 12/17/2024. He complains of soreness on the left side. He continues to use his walker. Patient denies any nausea, vomiting, abdominal pain, neck pain, or headache. No chestpain or shortness of breath. He denies any numbness or tingling in the left leg. He has been keeping the wounds clean and dry and is attending home physical therapy. His daughter accompanies him today. She states he is having difficulty remembering she had an injection to use his walker and to ask for assistance. His bed has been moved to the floor because he would not stay in bed and was frequently getting out without assistance. No other complaints. Physical exam: Evaluation of the left hip reveals no obvious deformity. Pleasantly confused and sitting in his wheelchair. Skin: Post surgical Silverlon dressing is in place. Upon removal, the surgical incision is closed and sealed. Zipline is in place. Wound edges are well approximated. No erythema or warmth. No activedrainage. Expected post operative ecchymosis and minimal edema. No pocketing. He still has a mildlyred rash present on his low back. It continues to judie. Musculoskeletal: Left hip evaluation shows supple motion. No pain with passive hip flexion and internal/external rotation. Intact quad set. Patient has full active motion of the ankle and toes. Thereis mild discomfort with palpation of the gluteus. No significant discomfort with palpation around the ankle or foot. He is able to stand and use his walker with minimal assistance. Neurologic: Gross sensation is intact across the left leg by soft touch. Peripheral pulses are 2+. Impression: Left hip 15 days status post hemiarthroplasty Plan: The patient was educated regarding today's findings. Conservative care measures were discussed. Zipline was removed. Benzoin and Steri-Strips were applied. These will fall off on their own in the next 7 to 10 days. He may get the wound wet in the shower starting tomorrow. Avoid scrubbing. Avoid soaking. No swimming pools for another 10 to 14 days. Continue PT. Continue the walker. Transition to a cane as pain and balance dictate. Follow-up with Dr. Farias in 4 to 6 weeks for reassessment. Please obtain x-rays of the pelvis and left hip at that visit. Continue ice application and elevation to reduce pain/swelling. Continue with his aspirin. I recommend he start Zyrtec or Claritin in addition to Tagamet to decrease the rash. Given his dementia, hip dislocation precautions will need to be reviewed frequently. Call with any other concerns. This dictation has been completed using Pixt[employer] text voice recognition software. Grammatical errors, omissions, insertions, and misspellings may be present due to the limitations of the software. Electronic Signature on File Electronically Reviewed/Signed by: Amandeep Villa PA-C Author Signature Dt/Tm:01/02/2025 03:33 PM Division of Sports Medicine Electronically Reviewed/Signed by: Eduardo Farias MD Cosigner Signature Dt/Tm: 01/03/2025 12:27PM Division of Sports Medicine CDS Patient Care team information Care Team Personnel Name: MD Spears Dennis A Position: Referring DIRECT Member Role: Primary Care Provider Address: [address] [place] [id number] [place] Opternative: [phone] Care Team Related Persons Name: DONTE BATISTA Insurance Providers Guarantor name: BUCK BATISTA Health Plan Information #: 1 Payer: [employer] Member Number: [id number] Policy Number: NA Group Number: [id number] Health Plan Information #: 2 Payer: SELF PAY Member Number: NA Policy Number: NA Group Number: NA Health Plan Information #: 3 Payer: [employer] Member Number: [id number] Policy Number: NA Group Number: NA
--- NOTE | 2025-01-10 14:14 | History & Physical Report ---
Date of Service January 10, 2025 Assessment & Plan (1) Acute hip pain: (2) Acute hypoxic respiratory failure: (3) Paroxysmal atrial fibrillation: (4) Fall: Plan #right hip pain - while he fell, and also recently broke his left hip, fortunately the right hip does not show fracture on x-ray or CT scan. There is a hematomaand that, as well as just regular soft tissue trauma is likely the source of the pain. At the same time, given that he probably does have osteoporosis, and is pain was bad enough that [facility], serial exams, see how he does with PT/OT, and if he seems to have any limiting painparticularly consistent with the hip joint, can consider an MRI to look for any truly occult fracture. Discussed with his daughter that most likely it is soft tissue injury as well as hematoma, she agrees. We will follow clinically and make further decisions as his situation evolves due to the hematoma, I will hold his Eliquis tonight, hold his aspirin in the morningbut as long as this does not evolve in the wrong direction, can probably resume his Eliquis in the evening of 01/11, and the aspirin 01/12 #hypoxia - quite mild, fairly asymptomatic, while his chest x-ray shows findings that could be consistent with a pneumonia, he is afebrile, his white count is only 11.3, he denies shortness of breath or pleuritic pain, and his lung exam is clear. His chest x-ray is not the best inhalation, I suspect it is probably largely crowding that is creating the illusion of a pneumonia. Discussed with patient's daughter for now I feel it most prudent to hold off on further treatment for that (or for any pulmonary edema that I doubt is there either) and treat if something truly evolves. She agrees. Hopefully as we get him up and moving, we should build a wean the oxygen. I will order incentive spirometry, although I am not sure he will be able to coordinate it with his mental status. # Anemiaappears to be improved from a few weeks agoI suspect a lot of it was acute blood loss when he broke his hip and he is now probably making new red cells to replace #fall - due to his dementia, his daughter notes that he unfortunately forgets that right now he is weak with ambulatory dysfunction and just gets up. She notes that [facility] is doing everything that they can, and laments that they are not able to use any sort of seatbelt or other restraint legally even though she (and the patient himself seemed to) prefer that that would be used when he is not able to be immediately and closely supervised #DVT prophylaxis - chronically anticoagulated on Eliquismaking risk of current VTE extremely low; holding Eliquis and aspirin for now due to the hip hematoma, anticipate resuming Eliquis in the evening of 01/11 as long as the hematoma does not evolve. Mechanical DVT prophylaxis would be of dubious benefit and possible risk (further falls or skin breakdown) dispositionappropriate for medical, serial exams/PT and OT; as long as he shows improvement in his symptoms and nothing consistent with a truly occult hip fracture or progressive hip hematoma, and as long as the hypoxia resolveshe [facility] and I anticipate him being able to go back there, hopefully as soon as 01/11 History of Present Illness Chief Complaint: fall, hip pain Primary Care Provider: [facility] patient is a very pleasant but reasonably demented 84-year-old who presents from SNF. His daughter notes that he was in his usual state of health, tried to get up not knowing that he needed assistance because he forgot, apparently his feet got tangled and then he fell striking his right hip. She notes that they are doing the best they can in keeping him safe there, including having hip pads on. Whenever he fell he hit his right hip, and apparently also his head. They watched him overnight, but with ongoing hip pain sent him to the ER for further evaluation. Here he is quite pleasant and really denies any complaints. Whenever I ask more vaguely he denies any significant pain, and whenever asked how his hip is he refers to his left hip being a bit sorehe just had a surgery for hip fracture on that about 3 weeks ago. He denies any head or neck pain. Denies any chest pain or shortness of breath as well. Allergies Allergy/AdvReac Type Severity Reaction Status Date / Time oxycodone AdvReac Severe became Verified 01/10/25 15:08 apneic and bradycardic Home Medications Medication Instructions Recorded Confirmed Type citalopram 20 mg tablet 20 mg PO QAM 08/31/18 01/10/25 History gabapentin 100 mg capsule 100 mg PO AMPM 03/09/20 01/10/25 History aspirin 81 mg tablet,delayed 81 mg PO QPM 07/04/20 01/10/25 History release albuterol sulfate 90 mcg/actuation 2 puff inhalation Q6 PRN Shortness 07/07/20 01/10/25 History aerosol inhaler Of Breath Or Wheezing apixaban 5 mg tablet (Eliquis) 5 mg PO AMHS 10/12/24 01/10/25 History meclizine 12.5 mg tablet 12.5 mg PO BID PRN Dizziness 10/12/24 01/10/25 History buspirone 5 mg tablet 5 mg PO TID 11/19/24 01/10/25 History acetaminophen 325 mg tablet 650 mg PO TID 12/17/24 01/10/25 History (Tylenol) fluoride (sodium) 1.1 % dental 1 applic dental BID 12/17/24 01/10/25 History cream (PreviDent 5000 Plus) iron,carbonyl 65 mg-vitamin C 125 1 tab PO DAILY 12/17/24 01/10/25 History mg tablet,delayed release (Vitron-C) pantoprazole 40 mg tablet,delayed 40 mg PO DAILY 12/17/24 01/10/25 History release carvedilol 3.125 mg tablet 3.125 mg PO BIDM #60 tabs 12/22/24 01/10/25 Rx cholecalciferol (vitamin D3) 25 25 mcg PO QAM #30 caps 12/22/24 01/10/25 Rx mcg (1,000 unit) capsule melatonin 3 mg tablet 3 mg PO HS #30 tabs 12/22/24 01/10/25 Rx quetiapine 25 mg tablet 25 mg PO DAILY@1900 #30 tabs 12/22/24 01/10/25 Rx fentanyl 12 mcg/hr transdermal 1 patch transdermal Q72H 01/10/25 01/10/25 History patch loperamide 2 mg tablet (Imodium 2 mg PO Q2H PRN Diarrhea 01/10/25 01/10/25 History A-D) loratadine 10 mg tablet (Claritin) 10 mg PO QAM 01/10/25 01/10/25 History magnesium hydroxide 400 mg/5 mL 30 ml PO DAILY PRN NO BM FOR 3 DAYS 01/10/25 01/10/25 History oral suspension (Milk of Magnesia) methyl salicylate 15 %-menthol 10 1 applic topical TID 01/10/25 01/10/25 History % topical cream mirtazapine 7.5 mg tablet 7.5 mg PO HS 01/10/25 01/10/25 History tramadol 50 mg tablet 50 mg PO Q6H 01/10/25 01/10/25 History tramadol 50 mg tablet 50 mg PO Q6H PRN Pain 01/10/25 01/10/25 History Past Med/Surg History Problem List Acute hip pain (Acute) Fall (Acute) Acute hypoxic respiratory failure (Acute) Postoperative anemia Acute respiratory failure with hypoxia Hard of hearing Closed hip fracture (Acute) Fall (Acute) Encounter for hospice care discussion Counseling regarding advanced directives and goals of care Palliative care by specialist Anemia Norovirus Dementia (Acute) Acute dehydration (Acute) Nausea vomiting and diarrhea (Acute) Fall (Acute) Gastroenteritis (Acute) Diarrhea Fall Paroxysmal atrial fibrillation Mixed Alzheimer's and vascular dementia Anginal equivalent Dyspnea on minimal exertion Complete left bundle branch block (Acute) Chest pain (Acute) COVID-19 (Acute) Pneumonia involving right lung (Acute) Pneumonia involving right lung Vomiting (Acute) Headache (Acute) Chest pain (Acute) Acute ischemic stroke Acute confusion (Acute) History of CVA (cerebrovascular accident) (Acute) Middle cerebral artery stenosis (Acute) Pre-diabetes Aneurysmal dilatation Weakness (Acute) History of pulmonary embolism Supratherapeutic INR (Acute) Acute cerebrovascular accident (Acute) CKD (chronic kidney disease) stage 3, GFR 30-59 ml/min (Acute) Status post reverse arthroplasty of left shoulder (Acute ~05/2020) HTN (hypertension) Migraine (Chronic) HX OF DVT prophylaxis Medical History On anticoagulant therapy Pulmonary embolism hospitalized 03/12/2020-03/15/2020 [facility] w/ BL PE; unk etiology; on coumadin Degenerative disc disease Osteoarthritis GERD (gastroesophageal reflux disease) Cancer LUNG AND PROSTATE CANCER, both treated surgically Asthma Using albuterol inhaler TID now since PEs. Previously wasn't using inhaler at all. Surgical History Status post-operative repair of hip fracture History of cataract surgery LEFT/RIGHT History of carpal tunnel release RT X 2 LEFT X 3 History of laminectomy LUMBAR History of prostatectomy History of esophagogastroduodenoscopy (EGD) History of colonoscopy History of herniorrhaphy RT INGUINAL History of lobectomy of lung RT MIDDLE LOBE History of tooth extraction History of tonsillectomy History of adenoidectomy Family History Father FHx: prostate cancer Grandfather (Paternal) FHx: prostate cancer Social History Smoking Status: Never smoker Tobacco Type: Cigars Second Hand Exposure: No; Do You Dip or Chew Tobacco: No; Hx Alcohol Use: Yes Alcohol type: wine Hx Substance Use: No Preferred Language: Bhutanese Communication Ability: Effective 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 HEENT normocephalic atraumatic mucous membranes moist, no bruising or open lesions on his head, no neck pain no C-spine tenderness to palpation or range of motion. Cardio is regular without rubs murmurs or gallops. Lungs are clear to auscultation bilaterally no rales rhonchi wheezes with good effort. Abdomen is soft, seems mildly distended although it also feels like he is voluntarily tensing his abdominal musculature not because of pain but simply in reaction to me pushing on it. Left hip has slightly stiff internal rotation but no tenderness and there is no pain to palpation. Right hip he has slight groin pain reproducible to internal rotation of his hip no soft tissue tenderness. Neuro shows cranial nerves II through XII be grossly intact gross motor and sensory are intact. Skin without rashes pallor or icterus. Mental status shows him to be [place] pleasantly confused. Labs and diagnostics noted. EKG chronic left bundle type changes Results & Data Results & Data Vital Signs (Past 12 Hours) Vital Signs Temp Pulse Pulse Resp BP BP Pulse Ox 01/10/25 13:58 90 01/10/25 13:14 90 20 124/76 100 01/10/25 12:38 89 20 127/73 98 01/10/25 12:00 90 18 127/80 100 01/10/25 10:35 90 18 98 01/10/25 10:09 88 L 01/10/25 10:08 92 H 20 148/79 H 96 01/10/25 10:00 94 H 20 128/81 99 01/10/25 09:58 92 H 01/10/25 09:20 01/10/25 09:20 97.5 F L 90 18 136/78 96 O2 Del Method O2 Flow Rate 01/10/25 13:58 01/10/25 13:14 Nasal Cannula 2 01/10/25 12:38 Nasal Cannula 2 01/10/25 12:00 Nasal Cannula 2 01/10/25 10:35 Nasal Cannula 2 01/10/25 10:09 Room Air 01/10/25 10:08 Nasal Cannula 2 01/10/25 10:00 Nasal Cannula 2 01/10/25 09:58 01/10/25 09:20 Room Air 01/10/25 09:20 Room Air Code Status & VTE Plan VTE Prophylaxis Plan VTE Prophylaxis will be ordered: Yes PG Care Time/CCT Total # of Minutes Spent Total Time Spent with Patient: Total time spent is greater than 50% in coordination of care (as documented) at patient's floor/unit and/or counseling patient: Coding Level of Care Code 06656 INT INP/OBS CARE 3/75MIN Diagnoses Acute hip pain M25.551 Laterality: right Acute hypoxic respiratory failure J96.01 Paroxysmal atrial fibrillation I48.0 Fall W19.XXXA Encounter type: initial encounter (1) Acute hip pain Laterality: right Qualified Code(s): M25.551 - Pain in right hip (4) Fall Encounter type: initial encounter Qualified Code(s): W19.XXXA - Unspecified fall, initial encounter
[2025-01-10] MEDS ORDERED: NYSTATIN CR 15 GM TUBE EXT PRN (16:47)
[2025-01-10] MEDS ORDERED: MAGNESIUM HYDROXIDE SUSP 30 ML UDC PO PRN (16:47)
[2025-01-10] MEDS ORDERED: POLYETHYLENE (MIRALAX) 17 GM PACK PO PRN (16:47)
[2025-01-10] MEDS ORDERED: ALBUTEROL HFA 8 GM INHALER INH PRN (16:47)
[2025-01-10] MEDS ORDERED: ALUMINUM/MAGNESIUM SUSP 30 ML UDC PO PRN (16:47)
[2025-01-10] MEDS: BENZONATATE 100 MG CAPSULE PO SCH (18:34)
[2025-01-10] MEDS: carvediloL 3.125 MG TAB PO SCH (18:34)
[2025-01-10] MEDS: QUEtiapine FUMARATE 25 MG TABLET PO SCH (18:34)
[2025-01-10] MEDS: ACETAMINOPHEN 325 MG TAB PO PRN (18:37)
[2025-01-10] MEDS: GABAPENTIN 100 MG CAP PO SCH (19:46)
[2025-01-10] MEDS: busPIRone 5 MG TAB PO SCH (19:46)
[2025-01-10] MEDS: MELATONIN 3 MG TAB PO SCH (19:46)
[2025-01-11] MEDS: fentaNYL 12 MCG/HR TDSY TD SCH (08:11)
[2025-01-11] MEDS: CHECK fentaNYL PATCH PLACEMENT SCH (08:12)
[2025-01-11] MEDS: traMADol HCL 50 MG TABLET PO PRN (08:20)
[2025-01-11] MEDS: CHOLECALCIFEROL 25 MCG (1000 UNITS) TAB PO SCH (08:20)
[2025-01-11] MEDS: CITALOPRAM 20 MG TAB PO SCH (08:20)
[2025-01-11] MEDS: PANTOprazole 40 MG TAB PO SCH (08:20)
[2025-01-11 08:22] LABS: Basophils # (auto) 0.04 K/uL (0.00-0.20); Basophils % (auto) 0.2 %; Eosinophils # (auto) 0.09 K/uL (0.00-0.50); Eosinophils % (auto) 0.5 %; Hematocrit (blood only) 24.9 % (42.0-52.0); Immature Granulocytes # (auto) 0.12 K/uL (0.01-0.20); Immature Granulocytes % (auto) 0.7 %; Lymphocytes # (auto) 2.09 K/uL (1.20-3.40); Lymphocytes % (auto) 11.6 %; Mean Corpuscular Hemoglobin 27.4 pg (25.0-34.0); Mean Corpuscular Hgb Conc 32.1 g/dL (32.0-36.0); Mean Corpuscular Volume 85.3 fL (80.0-100.0); Mean Platelet Volume 9.2 fL (9.4-12.4); Monocytes # (auto) 1.63 K/uL (0.11-0.59); Monocytes % (auto) 9.1 %; Neutrophils # (auto) 13.98 K/uL (1.40-6.50); Neutrophils % (auto) 77.9 %; Platelet Count 343 K/uL (130-400); RDW Coefficient of Variation 18.6 % (11.5-14.5); RDW Standard Deviation 58.1 fL (36.4-46.3); Red Blood Count 2.92 M/uL (4.70-6.10); White Blood Count 17.95 K/ul (4.8-10.8)
[2025-01-11] MEDS ORDERED: NON-FORMULARY MEDICATION (Iron,Carbonyl-Vitamin C [Vitron-C] 65 mg iron- 125 mg Tablet,Del PO SCH (09:00)
[2025-01-11 09:27] LABS: Calcium 8.4 mg/dl (8.6-10.3); Potassium 4.3 mmol/L (3.5-5.1)
[2025-01-11 09:32] LABS: BUN Creatinine Ratio 19.7 (10-20); Creatinine Clr Calc Pharmacy 42.8 ml/min
[2025-01-11 15:08] LABS: Basophils # (auto) 0.04 K/uL (0.00-0.20); Basophils % (auto) 0.2 %; Eosinophils # (auto) 0.08 K/uL (0.00-0.50); Eosinophils % (auto) 0.4 %; Hematocrit (blood only) 23.9 % (42.0-52.0); Hemoglobin 7.4 g/dl (14.0-18.0); Immature Granulocytes # (auto) 0.18 K/uL (0.01-0.20); Immature Granulocytes % (auto) 0.9 %; Lymphocytes # (auto) 1.97 K/uL (1.20-3.40); Lymphocytes % (auto) 9.5 %; Mean Corpuscular Hemoglobin 26.6 pg (25.0-34.0); Mean Platelet Volume 9.2 fL (9.4-12.4); Monocytes # (auto) 1.66 K/uL (0.11-0.59); Platelet Count 306 K/uL (130-400); RDW Coefficient of Variation 18.8 % (11.5-14.5); RDW Standard Deviation 58.6 fL (36.4-46.3); Red Blood Count 2.78 M/uL (4.70-6.10); White Blood Count 20.83 K/ul (4.8-10.8)
[2025-01-11 15:56] LABS: Microcytosis Present; Ovalocytes 1+; Poikilocytosis Present; Tear Drop Cells 1+
--- NOTE | 2025-01-11 17:18 | Hospitalist Progress Note ---
Date of Service January 11, 2025 Assessment & Plan (1) Acute hip pain: (2) Acute hypoxic respiratory failure: (3) Paroxysmal atrial fibrillation: (4) Fall: (5) Acute blood loss anemia: (6) Leukocytosis: Plan Patient presented to the ED on 01/10 from [facility] where he had a fall on the evening of 01/08. Patient w/ significant pain and not improving so he was sent to the ED for further care. #Right Hip Hematoma/Acute blood loss anemia right Hip CT: 7 cm intramuscular hematoma lateral to right hip. If pain persists, consider MRI to look for occult fx in setting of osteopenia. right Hip XR: no fracture Head CT: negative Hgb 9.1 on admission --> 8 --> 7.4, continue to monitor H&H q4h until hgb stabilizies. Blood loss secondary to hematoma & continued anticoagulation use. (last Eliquis dose 01/10 AM @ [facility]) Hold ASA/Eliquis for at least one week. Consent signed for PRBC's if needed overnight PT/OT evaluated - patient able to bear weight, can return to [facility] w/ addition of rehab. Given patient can bear weight at this time, MRI not indicated. Pain secondary to hematoma. Pain management w/ Fentanyl patch q72h (was on at [facility]), Schedule Tylenol 1000mg q 8h, Tramadol q6h prn AM CBC/BMP #Leukocytosis CBC w/ rising WBC 11.3 --> 17.95 --> 20.83, neutorphil predominant. Urinalysis negative CXR: atelectasis vs early pneumonia --> consider aspiration? Patient currently without symptoms aside from right hip pain Will continue to monitor, WBC increase likely secondary to evolving hematoma. Chronic conditions: Mental Health: Buspirone, Citalopram, Seroquel Paroxysmal A fib: Carvedilol GERD: Pantoprazole Neuropathy: Gabapentin Insomnia: Melatonin DVT prophylaxis: hold in setting of anemia Code: DNR/DNI Case discussed w/ daughter at bedside 01/11. Discussed w/ CM 01/11 Anticipate discharge back to [facility] pending stabilization of hemoglobin. Admission and Anticipated Discharge Date Admission Date: January 11, 2025 Subjective Patient seen and examined this morning. Daughter at bedside. Patient reports pain of right hip w/ transitioning from sitting to standing. At rest, patient without complaints of pain. Denies any additional complaints. Physical Exam Constitutional: WD/WN, vitals as above Eyes: PERRL, conjunctivae normal, anicteric sclerae Respiratory: breathing unlabored Cardiovascular: well perfused Musculoskeletal: no ecchymosis noted on anterior/lateral right hip Psychiatric: pleasant, confused Results & Data Results & Data Vital Signs (Past 12 Hours) Vital Signs Temp Pulse Resp BP Pulse Ox O2 Del Method 01/11/25 15:04 36.4 C L 97 H 18 137/75 94 Room Air 01/11/25 09:14 Room Air 01/11/25 06:55 37.3 C 113 H 20 115/74 96 Room Air 01/11/25 06:53 36.5 C 69 18 114/64 96 Room Air PG Care Time/CCT Total # of Minutes Spent Total Time Spent with Patient: Total time spent is greater than 50% in coordination of care (as documented) at patient's floor/unit and/or counseling patient: Coding Level of Care Code 66299 SUB INP/OBS CARE 3/50MIN Diagnoses Acute hip pain M25.551 Laterality: right Acute hypoxic respiratory failure J96.01 Paroxysmal atrial fibrillation I48.0 Fall W19.XXXA Encounter type: initial encounter Acute blood loss anemia D62 Leukocytosis D72.829 (1) Acute hip pain Laterality: right Qualified Code(s): M25.551 - Pain in right hip (4) Fall Encounter type: initial encounter Qualified Code(s): W19.XXXA - Unspecified fall, initial encounter
[2025-01-11] MEDS: ACETAMINOPHEN 500 MG TAB PO SCH (18:01)
[2025-01-11] MEDS: MECLIZINE 12.5 MG TAB PO PRN (18:39)
[2025-01-11 19:53] LABS: Hematocrit (blood only) 23.3 % (42.0-52.0); Hemoglobin 7.4 g/dl (14.0-18.0)
[2025-01-11 23:37] LABS: Hematocrit (blood only) 23.8 % (42.0-52.0); Hemoglobin 7.5 g/dl (14.0-18.0)
[2025-01-12 04:13] LABS: Basophils # (auto) 0.03 K/uL (0.00-0.20); Basophils % (auto) 0.2 %; Eosinophils # (auto) 0.03 K/uL (0.00-0.50); Eosinophils % (auto) 0.2 %; Hematocrit (blood only) 23.1 % (42.0-52.0); Hemoglobin 7.2 g/dl (14.0-18.0); Immature Granulocytes # (auto) 0.23 K/uL (0.01-0.20); Immature Granulocytes % (auto) 1.3 %; Lymphocytes # (auto) 1.75 K/uL (1.20-3.40); Lymphocytes % (auto) 9.6 %; Mean Corpuscular Hemoglobin 27.1 pg (25.0-34.0); Mean Corpuscular Hgb Conc 31.2 g/dL (32.0-36.0); Mean Corpuscular Volume 86.8 fL (80.0-100.0); Mean Platelet Volume 9.7 fL (9.4-12.4); Monocytes # (auto) 1.49 K/uL (0.11-0.59); Monocytes % (auto) 8.2 %; Neutrophils # (auto) 14.64 K/uL (1.40-6.50); Neutrophils % (auto) 80.5 %; Platelet Count 258 K/uL (130-400); RDW Coefficient of Variation 18.6 % (11.5-14.5); RDW Standard Deviation 58.5 fL (36.4-46.3); Red Blood Count 2.66 M/uL (4.70-6.10); White Blood Count 18.17 K/ul (4.8-10.8)
[2025-01-12 04:33] LABS: Calcium 8.1 mg/dl (8.6-10.3); Potassium 4.2 mmol/L (3.5-5.1)
[2025-01-12 04:38] LABS: Creatinine Clr Calc Pharmacy 42.8 ml/min
[2025-01-12] MEDS: SODIUM CHLORIDE 0.9% 500 ML IV ONE (04:56)
[2025-01-12 05:05] LABS: Ovalocytes 1+; Poikilocytosis Present; Polychromasia 1+
[2025-01-12] MEDS: ONDANSETRON INJ 2 MG/ML 2 ML VIAL IV PRN (08:10)
[2025-01-12 09:06] LABS: Hematocrit (blood only) 24.3 % (42.0-52.0); Hemoglobin 7.6 g/dl (14.0-18.0)
--- NOTE | 2025-01-12 10:40 | XRay Report ---
KUB HISTORY: abdominal pain, assess for constipation COMPARISON STUDY: CT of the abdomen and pelvis dated 12/16/2024 FINDINGS: Supine view of the abdomen demonstrates a nonspecific bowel gas pattern. Stool burden is no t increased. No evidence of obstruction. IMPRESSION: Nonspecific findings. ACT 112: Negative or not required by law. The above report was generated using voice recognition software. It may contain grammatical, syntax o r spelling errors. Electronically signed by: Tara Akers M.D. 01/12/2025 10:39 AM
[2025-01-12 11:57] LABS: Hematocrit (blood only) 22.4 % (42.0-52.0); Hemoglobin 7.1 g/dl (14.0-18.0)
[2025-01-12] MEDS: HYDROCODONE/ACETAMOPHEN 5/325MG TAB PO STA (13:25)
[2025-01-12] MEDS ORDERED: SODIUM CHLORIDE 0.9% 100 ML IV PRN (13:28)
[2025-01-12] MEDS: LIDOCAINE 5% 1 PATCH TD SCH (14:52)
--- NOTE | 2025-01-12 17:35 | Hospitalist Progress Note ---
Date of Service January 12, 2025 Assessment & Plan (1) Intramuscular hematoma: (2) Fall: (3) Acute hip pain: (4) Paroxysmal atrial fibrillation: (5) Acute blood loss anemia: (6) Leukocytosis: (7) Mixed Alzheimer's and vascular dementia: Plan Mor presented to the ED on 01/10 from [facility] where he had a fall on the evening of 01/08. significant right hip pain and not improving so he was sent to the ED for further care. He is anticoagulated on apixaban for afib and unprovoked PE in 2019. Xrays negative for fracture, hip/pelvis CT negative for fracture, 7 cm intramuscular hematoma lateral to right hip. Anticoagulation held. # Right hip intramuscular hematoma, acute blood loss anemia - apixaban now has completely reversed - Hg trended down and has settled in low 7's currently stable - personally discussed risks and benefits of transfusion with his daughter today and decided to proceed with 1u RBCs - mostly pain has been moderate but was severe yesterday AM and today. Continue scheduled APAP, stop tramadol, try hydrocodone (tolerated in past for migraine), add lidoderm patch, continue his usual gabapentin and fentanyl patch. Has had delirium and respiratory suppression with morphine, oxycodone in the past. Very narrow therapeutic window for opioids Abdominal pain this am - possibly indigestion or gas. Reviewed KUB film and appears normal. Symptoms resolved Leukocytosis is related to the hematoma, no evidence of infection -monitor CBC Paroxysmal afib - mild tachycardia - might improve with transfusion, continue carvedilol Frequent falls and frequently hits head -discussed risks and benefits of continuing apixaban with his family - bleeding risks vs risk of stroke or thrombosis. they maintain palliative focus of care and mainly want to keep him comfortable. Plan to stop apixaban. They are interested in palliative care follow up at [facility] or in outpatient clinic Transient hypoxia after morphine in ED - was 88% on RA, required 2L pnc. Resolved. Chronic conditions: Mixed vascular and alzheimer's dementia Mental Health: Buspirone, Citalopram, Seroquel Paroxysmal A fib: Carvedilol GERD: Pantoprazole Neuropathy: Gabapentin Insomnia: Melatonin DVT prophylaxis: SCD Code: DNR/DNI Discussed plan of care with his daughter at bedside and son on speaker phone Anticipate discharge back to [facility] tomorrow Admission and Anticipated Discharge Date Admission Date: January 11, 2025 Subjective Continues with right lateral hip pain at hematoma currently severe Earlier this AM complained of abdominal and lower back pain but that has resolved at this point Physical Exam 2 Physical Exam: Last 24h vitals reviewed GEN: looks painful/grimacing sitting in bed HEENT: pupils equal, sclerae anicteric, moist MM RESP: normal WOB, CTAB CV: reg no mrg ABD: soft/nt/nd +BT : no dozier SKIN: warm and dry, no generalized rashes EXT: right lateral hip with some lateral swelling and tenderness not very obvious, no deformity, no ecchymosis NEURO: AOx person. Tends to sleep frequently when family not present Face symmetric, speech intact, moves 4 ext spontaneously and equally Results & Data Results & Data Vital Signs (Past 12 Hours) Vital Signs Temp Pulse Pulse Resp BP BP Pulse Ox 01/12/25 16:40 36.6 C 96 H 18 125/70 01/12/25 16:25 36.8 C 96 H 20 125/68 96 01/12/25 15:58 36.5 C 90 20 101/61 95 01/12/25 14:57 36.5 C 92 H 18 118/68 94 01/12/25 09:50 36.7 C 106 H 20 128/73 94 01/12/25 07:37 36.4 C L 104 H 18 139/70 92 O2 Del Method 01/12/25 16:40 01/12/25 16:25 01/12/25 15:58 01/12/25 14:57 Room Air 01/12/25 09:50 Room Air 01/12/25 07:37 Room Air Laboratory Results 01/12/25 11:43 01/12/25 03:31 PG Care Time/CCT Total # of Minutes Spent Total Time Spent with Patient: Total time spent is greater than 50% in coordination of care (as documented) at patient's floor/unit and/or counseling patient: Coding Level of Care Code 39356 SUB INP/OBS CARE 3/50MIN Diagnoses Intramuscular hematoma T14.8XXA Fall W19.XXXA Encounter type: initial encounter Acute hip pain M25.551 Laterality: right Paroxysmal atrial fibrillation I48.0 Acute blood loss anemia D62 Leukocytosis D72.829 Mixed Alzheimer's and vascular dementia G30.9; F01.50; F02.80 (2) Fall Encounter type: initial encounter Qualified Code(s): W19.XXXA - Unspecified fall, initial encounter (3) Acute hip pain Laterality: right Qualified Code(s): M25.551 - Pain in right hip
[2025-01-12] MEDS: MECLIZINE 12.5 MG TAB PO SCH (20:54)
[2025-01-12] MEDS: HYDROCODONE/ACETAMOPHEN 5/325MG TAB PO PRN (20:54)
[2025-01-13 06:10] LABS: Hematocrit (blood only) 25.3 % (42.0-52.0); Hemoglobin 8.2 g/dl (14.0-18.0); Mean Corpuscular Hemoglobin 27.2 pg (25.0-34.0); Mean Corpuscular Hgb Conc 32.4 g/dL (32.0-36.0); Mean Corpuscular Volume 84.1 fL (80.0-100.0); Mean Platelet Volume 9.6 fL (9.4-12.4); Nucleated RBC # (auto) 0.02 K/uL (0.00-0.12); Nucleated RBC % (auto) 0.1 %; Platelet Count 237 K/uL (130-400); RDW Coefficient of Variation 17.8 % (11.5-14.5); RDW Standard Deviation 54.4 fL (36.4-46.3); Red Blood Count 3.01 M/uL (4.70-6.10)
[2025-01-13 07:59] VITALS: TEMP 98.1
[2025-01-13 08:58] VITALS: BP 119/72; PULSE 102; RESP 20; O2SAT 93
[2025-01-13] MEDS: ACETAMINOPHEN 325 MG TAB PO SCH (08:59)
--- NOTE | 2025-01-13 18:56 | Discharge Summary ---
Discharge Summary Date of Service January 13, 2025 Principal Dx & Hospital Course #1 = Principal Diagnosis (1) Intramuscular hematoma: (2) Fall: (3) Acute hip pain: (4) Paroxysmal atrial fibrillation: (5) Acute blood loss anemia: (6) Leukocytosis: (7) Mixed Alzheimer's and vascular dementia: Katherine Juares presented to the ED on 01/10 from [facility] where he had a fall on the evening of 01/08. significant right hip pain and not improving so he was sent to the ED for further care. He is anticoagulated on apixaban for afib and unprovoked PE in 2019. Xrays negative for fracture, hip/pelvis CT negative for fracture, 7 cm intramuscular hematoma lateral to right hip. Anticoagulation held. # Right hip intramuscular hematoma, acute blood loss anemia - apixaban was stopped - Hg trended down and has settled in low 7's currently stable >48h - anemia symptomatic -transfused 1 unit RBCs hemoglobin augmented appropriately to 8.2 - pain was not adequately controlled on usual fentanyl patch and tramadol, stopped tramadol and replaced with hydrocodone with good effect, continue scheduled acetaminophen and Lidoderm Leukocytosis is related to the hematoma, no evidence of infection - repeat CBC in a week or 2 Paroxysmal afib - continue carvedilol Frequent falls and frequently hits head -discussed risks and benefits of continuing apixaban with his family - bleeding risks vs risk of stroke or thrombosis. they maintain palliative focus of care and mainly want to keep him comfortable. stopped apixaban. They are interested in palliative care follow up at [facility] or in outpatient clinic Transient hypoxia after morphine in ED - was 88% on RA, required 2L pnc. Resolved. Chronic conditions: Mixed vascular and alzheimer's dementia Mental Health: Buspirone, Citalopram, Seroquel Paroxysmal A fib: Carvedilol GERD: Pantoprazole Neuropathy: Gabapentin Insomnia: Melatonin DVT prophylaxis: SCD Code: DNR/DNI Discussed plan of care with his daughter at bedside 01/13 Notes For Next Care Provider Medication Changes From Visit stopped apixaban, replaced tramadol with hydrocodone until acute pain improves Admission HPI Per Admitting Provider patient is a very pleasant but reasonably demented 84-year-old who presents from SNF. His daughter notes that he was in his usual state of health, tried to get up not knowing that he needed assistance because he forgot, apparently his feet got tangled and then he fell striking his right hip. She notes that they are doing the best they can in keeping him safe there, including having hip pads on. Whenever he fell he hit his right hip, and apparently also his head. They watched him overnight, but with ongoing hip pain sent him to the ER for further evaluation. Here he is quite pleasant and really denies any complaints. Whenever I ask more vaguely he denies any significant pain, and whenever asked how his hip is he refers to his left hip being a bit sorehe just had a surgery for hip fracture on that about 3 weeks ago. He denies any head or neck pain. Denies any chest pain or shortness of breath as well. Discharge Exam Last 24h vitals reviewed GEN: napping and looks comfortable today HEENT: pupils equal, sclerae anicteric, moist MM RESP: normal WOB, CTAB CV: reg no mrg ABD: soft/nt/nd +BT : no dozier SKIN: warm and dry, no generalized rashes EXT: right lateral hip with some mild lateral swelling, no deformity, no ecchymosis NEURO: aroused briefly to physical exam and voice Discharge Plan Discharge Items Patient Disposition: Transfer Longterm Fac Reason For Visit: FALL, HIP PAIN Discharge Diagnosis: Right hip intramuscular hematoma Acute blood loss anemia Activity: Resume your previous activity Weightbearing: Full weightbearing Non-emergency contact: Primary Care Provider Call non-emergency contact if: you have any medication questions, your symptoms worsen and your pain is not controlled Follow-up/Referrals: [facility] [Primary Care Provider] - Diet: Regular Addtl Attending Provider Instructions: Right hip 7 cm intramuscular hematoma Apixaban stopped - discussed risks and benefits with his family and will not resume it in the future because overall goals of care are palliative Hematoma stable, Hg stable 48h Transfused 1 unit RBC 01/12, Hg today 8.2 Please check CBC in about a week PT and OT evaluate and treat Pending Studies at Discharge: No Stand-Alone Forms: My [facility] Skilled Items Patient informed of condition?: Yes DNR: Yes Discharge Level of Care: Skilled Communicable Disease: No Discharge Prognosis: Improving Lines: None Urinary Catheter: No Medications and DC Order Prescriptions: New acetaminophen 325 mg Tablet 650 mg PO Q8H Qty: 0 0RF polyethylene glycol 3350 [Miralax] 17 gram Powder In Packet 17 g PO DAILY PRNQty: 0 0RF hydrocodone-acetaminophen 5-325 mg Tablet 1 tab PO Q6H PRN (Reason: pain) Qty: 20 0RF lidocaine 5 % Adhesive Patch,Medicated 1 patch transdermal QAM Qty: 0 0RF Continued gabapentin 100 mg Capsule 100 mg PO AMPM albuterol sulfate 90 mcg/actuation HFA aerosol inhaler 2 puff INHALATION Q6 PRN (Reason: Shortness Of Breath Or Wheezing) citalopram 20 mg tablet 20 mg PO QAM aspirin 81 mg Tablet,Delayed Release (Dr/Ec) 81 mg PO QPM Hold Instructions: Resume on 12/05/24. fluoride (sodium) [PreviDent 5000 Plus] 1.1 % Cream 1 applic DENTAL BID Vitron-C 65 mg iron- 125 mg Tablet,Delayed Release (Dr/Ec) 1 tab PO DAILY pantoprazole 40 mg tablet,delayed release (DR/EC) 40 mg PO DAILY melatonin 3 mg Tablet 3 mg PO HS Qty: 30 0RF carvedilol 3.125 mg Tablet 3.125 mg PO BIDM Qty: 60 0RF cholecalciferol (vitamin D3) 25 mcg (1,000 unit) Capsule 25 mcg PO QAM Qty: 30 0RF loperamide [Imodium A-D] 2 mg Tablet 2 mg PO Q2H MDD 6 DOSES/DAY PRN (Reason: Diarrhea) Rx Instructions: administer after each loose stool until symptoms controlled; do not exceed 8 mg per 24 hrs magnesium hydroxide [Milk of Magnesia] 400 mg/5 mL Suspension 30 ml PO DAILY PRN (Reason: NO BM FOR 3 DAYS) loratadine [Claritin] 10 mg Tablet 10 mg PO QAM Rx Instructions: 01/04/25 THROUGH 01/17/25 mirtazapine 7.5 mg Tablet 7.5 mg PO HS fentanyl 12 mcg/hr Patch 72 Hour 1 patch TRANSDERMAL Q72H Rx Instructions: LAST CHANGES 01/09/25 methyl salicylate-menthol 15-10 % Cream 1 applic TOPICAL TID meclizine 12.5 mg tablet 12.5 mg PO BID PRN (Reason: Dizziness) buspirone 5 mg tablet 5 mg PO TID Held tramadol 50 mg Tablet 50 mg PO Q6H PRN (Reason: Pain) Hold Instructions: Resume on 01/27/25. hold until no longer on hydrocodone tramadol 50 mg Tablet 50 mg PO Q6H Hold Instructions: Resume on 01/27/25. hold until no longer on hydrocodone Discontinued acetaminophen [Tylenol] 325 mg Tablet 650 mg PO TID MDD 3 GRAMS/24 HOURS Hold Instructions: Provider's Order quetiapine 25 mg Tablet 25 mg PO DAILY@1900 Qty: 30 0RF Eliquis 5 mg tablet 5 mg PO AMHS Discharge Orders: Discharge Order (Routine); Ordered 01/13/25 Ordered By: Jamia Esteban Admission Data Admit Date/Time: 01/11/25 15:52 Attending Provider: Jamia Esteban Admit Provider: Osmin Del Valle Primary Care Provider: [facility] Other Providers: Osmin Del Valle; [facility] Other Interventions: Discharge Summary Assessment (RN) Last Done: 01/13/25 12:40 Hospital Stay Data Consultations 01/10/25 12:57 ED Decision to Admit Stat Diagnostic Imagining Performed 01/10/25 09:23 CT cervical spine wo con Stat CT head/brain wo con Stat 01/10/25 11:28 CT hip RT wo con Stat Pending Results Patient Have Any Pending Studies at Discharge: No Discharge Instructions Given to Patient (Per Discharging Provider) Right hip 7 cm intramuscular hematoma Apixaban stopped - discussed risks and benefits with his family and will not resume it in the future because overall goals of care are palliative Hematoma stable, Hg stable 48h Transfused 1 unit RBC 01/12, Hg today 8.2 Please check CBC in about a week PT and OT evaluate and treat Total Time Total Time Spent Total Time Spent (In Minutes): I personally spent: 40 minutes today on clinical care activities including: reviewing chart notes and vital signs reviewing labs discussion with animal care giver examining the patient counseling the patient's family writing prescriptions, discharge instructions documentation Coding Level of Care Code 57798 INP/OBS DISCH >30 MIN Diagnoses Intramuscular hematoma T14.8XXA Fall W19.XXXA Encounter type: initial encounter Acute hip pain M25.551 Laterality: right Paroxysmal atrial fibrillation I48.0 Acute blood loss anemia D62 Leukocytosis D72.829 Mixed Alzheimer's and vascular dementia G30.9; F01.50; F02.80
== END 2025-01-13 14:50 | DRG 604 ==
LOC: ED 09:10 → EDINP 09:10 → SUATTDRO 14:10 → 3W 16:48 → 3N 19:41